=== PATIENT | female | born 1955 | race Caucasian/White ===

== ENCOUNTER 2020-03-20 11:17 | Outpatient (REF) | payer MEDICARE, SELFPAY ==
[2020-03-20 12:04] LABS: MANUAL DIFF FLAG NO
[2020-03-20 12:09] LABS: Basophils Percent Auto 0.6 % (0-2); Eosinophils Percent Auto 0.4 % (0-4); Hematocrit 37.9 % (37-47); Hemoglobin 13.4 g/dl (12.0-16.0); Imm Gran Abs Auto 0.01 X10*3/uL (0.00-0.03); Imm Gran Pct Auto 0.2 % (0.0-0.4); Lymphocytes Absolute Auto 1.4 X10*3/uL (1.2-4.9); Lymphocytes Percent Auto 25.7 % (20-40); Mean Corpuscular HGB Conc 35.4 g/dl (31.0-35.0); Mean Corpuscular Hemoglobin 37.7 pg (27.0-33.0); Mean Corpuscular Volume 106.8 fL (80-98); Mean Platelet Volume 9.6 fL (9.4-12.3); Monocytes Absolute Auto 0.4 X10*3/uL (0.1-1.2); Monocytes Percent Auto 7.8 % (2-11); Neutrophils Absolute Auto 3.5 X10*3/uL (2.0-8.3); Neutrophils Percent Auto 65.3 % (45-73); Platelet Count 250 X10*3/uL (160-400); Red Blood Count 3.55 X10*6/uL (4.20-5.50); Red Cell Distribution Width 12.9 % (11.0-16.0); White Blood Count 5.4 X10*3/uL (4.8-10.8)
[2020-03-20 12:44] LABS: Creatinine Urine 254.83 mg/dL; Microalbum/Creatinine Ratio Ur 62.3 ug/mg cr
[2020-03-20 12:47] LABS: Alanine Aminotransferase 9 U/L (0-31); Albumin Level 4.1 g/dL (3.5-5.0); Alkaline Phosphatase 72 U/L (39-117); Anion Gap 13 (12-20); Aspartate Amino Transferase 22 U/L (5-31); Bilirubin Total 0.6 mg/dL (0.0-1.0); Blood Urea Nitrogen 9 mg/dL (9-16); Calcium 9.1 mg/dL (8.4-10.2); Carbon Dioxide 28 mmol/L (22-29); Chloride 95 mmol/L (96-108); Cholesterol 213 mg/dL; Estimated Glomerular Filt Rate > 60; Glucose Fasting 124 mg/dL (60-99); HDL Cholesterol 86 mg/dL; LDL Cholesterol Calculated 110 mg/dl; Potassium 4.2 mmol/l (3.3-5.1); Sodium 132 mmol/L (135-145); Total Protein 6.8 g/dL (6.5-8.0); Triglycerides 88 mg/dL
== END 2020-03-20 11:18 | disposition home or self-care (01) ==
LOC: HO.LAB 11:17
PROVIDERS: PCP Physician Assistant; Visit Provider Physician Assistant
DX: I10 Essential (primary) hypertension (principal); Z13.220 Encounter for screening for lipoid disorders; Z13.29 Encounter for screening for other suspected endocrine disorder
CPT/HCPCS: 36415; 80053; 80061; 82043; 84443; 85025

== ENCOUNTER 2020-05-31 10:47 | Outpatient (REF) | payer MEDICARE, SELFPAY ==
--- NOTE | 2020-05-31 10:52 | MM_ITS ---
EXAMINATION: MM SCREENING DIGITAL MAMMOGRAPHY, BILATERAL CLINICAL INFORMATION: Screening. Asymptomatic. Benign left stereotactic biopsy 06/12/2018 (Benign breast tissue with stromal fibrosis, microcysts, and microcalcifications). Due for yearly. The lifetime risk of breast cancer based on the Tyrer-Cuzick Model is 6%. COMPARISON: Mammography: 12/14/2018, 06/12/2018, 04/06/2018, 03/31/2018 TECHNIQUE: Digital mammography is performed in craniocaudal and mediolateral oblique views along with computer-aided detection (CAD). FINDINGS: There are scattered areas of fibroglandular density (ACR BI-RADS breast composition Category b). Breast tissue composition borders on heterogeneously dense. There are no significant masses, abnormal calcifications, or other abnormalities. There is biopsy clip marker mid 3:00 left breast. Skin contours are smooth. No significant changes. MM/MM screening mammo BI IMPRESSION: No mammographic evidence of malignancy. ASSESSMENT: BI-RADS 1: Negative RECOMMENDATION: Routine annual mammography screening. This patient's information was entered into a reminder system with a target due date for their next mammogram.
== END 2020-05-31 10:48 | disposition home or self-care (01) ==
LOC: HO.MAMMO 10:47
PROVIDERS: PCP Physician Assistant; Visit Provider Physician Assistant
DX: Z12.31 Encounter for screening mammogram for malignant neoplasm of breast (principal)
CPT/HCPCS: 77067

== ENCOUNTER 2020-09-14 11:55 | Outpatient (REF) | payer MEDICARE, SELFPAY ==
--- NOTE | ~2020-09-14 | XR_ITS ---
EXAMINATION: XR LUMBOSACRAL SPINE CLINICAL INFORMATION: Lower back pain COMPARISON: 02/02/2013 TECHNIQUE: Three views of the lumbosacral spine. FINDINGS: No acute fracture or subluxation. Grade 1 anterolisthesis of L3 on L4 and L4 on L5. Disc space narrowing at these levels as well, greatest at L4-L5. Associated facet arthropathy of the lower lumbar spine. The sacroiliac joints are symmetric. The sacrum appears intact. The bowel gas pattern is unremarkable. XR/XR lumbar spine 2-3V IMPRESSION: Moderate degenerative change of the lower lumbar spine.
[2020-09-14 13:26] LABS: Hemoglobin 12.4 g/dl (12.0-16.0); Mean Corpuscular HGB Conc 33.5 g/dl (31.0-35.0); Mean Corpuscular Hemoglobin 35.6 pg (27.0-33.0); Mean Corpuscular Volume 106.3 fL (80-98); Mean Platelet Volume 9.7 fL (9.4-12.3); Platelet Count 248 X10*3/uL (160-400); Red Blood Count 3.48 X10*6/uL (4.20-5.50); Red Cell Distribution Width 13.5 % (11.0-16.0); White Blood Count 6.4 X10*3/uL (4.8-10.8)
[2020-09-14 13:49] LABS: Alanine Aminotransferase 8 U/L (0-31); Albumin Level 4.1 g/dL (3.5-5.0); Alkaline Phosphatase 75 U/L (39-117); Anion Gap 16 (12-20); Aspartate Amino Transferase 17 U/L (5-31); Bilirubin Total 0.2 mg/dL (0.0-1.0); Blood Urea Nitrogen 15 mg/dL (9-16); Carbon Dioxide 25 mmol/L (22-29); Chloride 101 mmol/L (96-108); Cholesterol 218 mg/dL; Estimated Glomerular Filt Rate > 60; Glucose Fasting 105 mg/dL (60-99); HDL Cholesterol 79 mg/dL; LDL Cholesterol Calculated 126 mg/dl; Sodium 138 mmol/L (135-145); Triglycerides 65 mg/dL
[2020-09-14 14:11] LABS: TSH reflex Free T4 2.71 uIU/mL (0.32-4.0)
[2020-09-14 14:12] LABS: Creatinine Urine 142.29 mg/dL; Microalbum/Creatinine Ratio Ur 11.2 ug/mg cr
== END 2020-09-14 11:56 | disposition home or self-care (01) ==
LOC: HO.XRAY 11:55
PROVIDERS: PCP Physician Assistant; Visit Provider Physician Assistant
DX: I10 Essential (primary) hypertension (principal); M54.5 Low back pain
CPT/HCPCS: 36415; 72100; 80053; 80061; 82043; 84443; 85027

== ENCOUNTER 2022-06-22 08:12 | Outpatient (REF) | payer MEDICARE, SELFPAY ==
--- NOTE | ~2022-06-22 | XR_ITS ---
EXAMINATION: XR LUMBOSACRAL SPINE CLINICAL INFORMATION: Low back pain. COMPARISON: None TECHNIQUE: Three views of the lumbosacral spine. FINDINGS: There is normal lumbar lordosis. There is grade 1 anterolisthesis L3 over L4 and L4 over L5 with degenerative disc changes. No visible acute fracture or dislocation seen. There is mild dextroscoliosis. No aggressive lytic or sclerotic process seen. XR/XR lumbar spine 2-3V IMPRESSION: Grade 1 anterolisthesis L3 over L4 and L4 over L5 with degenerative disc changes. No visible acute fracture or dislocation seen.
[2022-06-22 09:32] LABS: Hematocrit 36.2 % (37.0-47.0); Hemoglobin 12.5 g/dl (12.0-16.0); Mean Corpuscular HGB Conc 34.5 g/dl (31.0-35.0); Mean Corpuscular Hemoglobin 36.9 pg (27.0-33.0); Mean Corpuscular Volume 106.8 fL (80.0-98.0); Mean Platelet Volume 8.9 fL (9.4-12.3); Platelet Count 300 X10*3/uL (160-400); Red Blood Count 3.39 X10*6/uL (4.20-5.50); Red Cell Distribution Width 13.2 % (11.0-16.0); White Blood Count 6.2 X10*3/uL (4.8-10.8)
[2022-06-22 10:16] LABS: Alanine Aminotransferase 7 U/L (0-31); Albumin Level 3.6 g/dL (3.5-5.0); Alkaline Phosphatase 103 U/L (39-117); Anion Gap 18 (12-20); Aspartate Amino Transferase 24 U/L (5-31); Bilirubin Total 0.5 mg/dL (0.0-1.0); Blood Urea Nitrogen 12 mg/dL (9-16); Calcium 9.1 mg/dL (8.4-10.2); Carbon Dioxide 25 mmol/L (22-29); Chloride 99 mmol/L (96-108); Cholesterol 228 mg/dL; Estimated Glomerular Filt Rate > 60; Glucose Fasting 170 mg/dL (60-99); HDL Cholesterol 82 mg/dL; LDL Cholesterol Calculated 127 mg/dl; Potassium 5.1 mmol/L (3.3-5.1); Sodium 137 mmol/L (135-145); Total Protein 6.7 g/dL (6.5-8.0); Triglycerides 97 mg/dL
[2022-06-22 10:30] LABS: Creatinine Urine 186.01 mg/dL; Microalbum/Creatinine Ratio Ur 168.2 ug/mg cr
[2022-06-22 10:39] LABS: TSH reflex Free T4 2.56 uIU/mL (0.32-4.0)
== END 2022-06-22 08:13 | disposition home or self-care (01) ==
LOC: HO.LAB 08:12
PROVIDERS: Visit Provider Physician Assistant
DX: I10 Essential (primary) hypertension (principal); M54.50 Low back pain, unspecified
CPT/HCPCS: 36415; 72100; 80053; 80061; 82043; 84443; 85027

== ENCOUNTER 2022-10-21 10:29 | Emergency (ER) | payer MEDICARE, SELFPAY ==
--- NOTE | ~2022-10-21 | CT_ITS ---
EXAMINATION: CT ANGIOGRAM OF THE CHEST WITH AND WITHOUT CONTRAST (CT PULMONARY ANGIOGRAM FOR PE) CLINICAL INFORMATION: Reason for Exam SOB COMPARISON: January 2020. TECHNIQUE: Prior to contrast administration, noncontrast localization images were obtained. Subsequently, multidetector volumetric imaging was performed from the thoracic inlet to below the diaphragms following the administration of 80 mL Omnipaque 350 intravenous contrast. No contrast reaction reported Sagittal, coronal, and MIP oblique sagittal reformatted images were obtained on the CT workstation, uploaded to PACS, and reviewed. This CT examination was performed using dose optimization techniques as appropriate, variously including the following: *Automated exposure control *Adjustment of mA and/or kV according to patient size (this includes techniques or standardized protocols for targeted exams where dose is matched to indication/reason for exam; i.e. extremities or head) *Use of iterative reconstruction technique Total exam dose-length product 137 mGy-cm FINDINGS: QUALITY OF STUDY/CONTRAST BOLUS: Satisfactory. PULMONARY ARTERIES: No pulmonary emboli. THORACIC AORTA: No aneurysm. LUNG: Emphysematous changes again observed. Main airways are patent. Atelectatic change and mucous plugging of the medial right middle lobe have increased since the previous evaluation. There are multiple lung nodules, not significantly changed. The largest of these is in the posterolateral right upper lobe series 6 image 114 at 5 mm. PLEURA: No pleural effusion or pneumothorax. MEDIASTINUM: No new suspicious lymphadenopathy. No evidence of septal bowing or right heart strain. CORONARY ARTERY CALCIFICATION: None visualized on this study. CHEST WALL/AXILLA: No new suspicious axillary adenopathy. OSSEOUS STRUCTURES: Compression fracture of L1 since the previous evaluation. There is 5-6 mm of retropulsion. There is sclerosis of this vertebra. Correlation with MRI would be recommended. Slight to mild wedge deformity at T12 is new since the previous evaluation. UPPER ABDOMEN: Unremarkable. No reflux of contrast into the hepatic veins to suggest elevated right heart pressures. CT/CT angio chest PE protocol IMPRESSION: No CTA evidence for pulmonary embolus. Emphysematous changes. Multiple lung nodules, not appreciably changed. Increased atelectasis and mucous plugging in the medial right middle lobe since the previous evaluation. New compression fracture of L1 since the previous evaluation with 5 to 6 mm of retropulsion. There is also increased sclerotic change of this vertebra. Correlation with MR examination would be recommended. Slight to mild wedge deformity at T12 is new since the previous evaluation. Other incidental findings as noted above.
[2022-10-21 10:33] VITALS: BP 136/92; PULSE 128; RESP 22; TEMP 36.6; O2SAT 95; BMI 14.6
--- NOTE | 2022-10-21 10:35 | ECG_ITS ---
Test Reason : sob Blood Pressure : / mmHG Vent. Rate : 123 BPM Atrial Rate : 123 BPM P-R Int : 136 ms QRS Dur : 056 ms QT Int : 312 ms P-R-T Axes : 087 066 071 degrees QTc Int : 446 ms Sinus tachycardia Possible Left atrial enlargement Cannot rule out Anterior infarct , age undetermined Abnormal ECG When compared with ECG of 26-SEP-2009 16:12, No significant change was found Referred By: Generic ED Physician Electronically Signed By:BENITO ELLER
--- NOTE | 2022-10-21 11:00 | ED_ITS ---
HPI - General Adult General Chief complaint: General Medical <SHAHANA Langley Last Filed: 10/24/22 09:36> Stated complaint: diff breathing <SHAHANA Langley Last Filed: 10/24/22 09:36> Time Seen by Provider: 10/21/22 10:56 <SHAHANA Langley Last Filed: 10/24/22 09:36> Source: patient and RN notes reviewed <SHAHANA Langley Last Filed: 10/24/22 09:36> Mode of arrival: ambulatory <SHAHANA Langley Last Filed: 10/24/22 09:36> Limitations: no limitations <SHAHANA Langley Last Filed: 10/24/22 09:36> History of Present Illness HPI narrative: This is a cachectic 67-year-old female, with a past medical history hypertension, IBS, chronic smoker currently smoking 1 pack per day, chronic angular cheilitis, chronic GERD, who presents to the emergency department today with complaints of failure to thrive. Patient reports that over the last several months she has been progressively getting weaker and weaker which has been making activities of daily living very difficult for her. She reports that she lives on the 2nd floor and ambulating up the stairs is extremely difficult for her. She reports that when she ambulates she becomes short of breath and very weak. She reports that every time she eats she ultimately vomits. Patient reports that she has a significant smoking history, reports that she was up to smoking 3 packs per cigarettes per day; now smoking 1 pack per day. She denies any headaches. Admits to having some nasal congestion and runny nose: Denies ear pain, chest pain, palpitations. Reports that at time she feels as though as her heart is racing. Denies lower extremity swelling. Denies any urinary or bowel complaints. She reports that she has lost a significant amount of weight over the last several years reports approximately 50 lb weight loss in the last several years. No other complaints or concerns at this time. <SHAHANA Langley Last Filed: 10/24/22 09:36> MD complaint: Failure to thrive <SHAHANA Langley Last Filed: 10/24/22 09:36> Onset (ago): month(s) <SHAHANA Langley Last Filed: 10/24/22 09:36> Relieving factors: none <SHAHANA Langley Last Filed: 10/24/22 09:36> Exacerbating factors: none <SHAHANA Langley Last Filed: 10/24/22 09:36> Associated symptoms: loss of appetite and malaise <SHAHANA Langley Last Filed: 10/24/22 09:36> Treatments prior to arrival: none <SHAHANA Langley Last Filed: 10/24/22 09:36> Related Data Home medications: Home Medications Medication Instructions Recorded Confirmed acetaminophen 650 mg 650 mg PO Q12H PRN Pain 10/21/22 10/21/22 tablet,extended release (Tylenol Arthritis Pain) albuterol sulfate 90 mcg/actuation 1 puff inhalation QID PRN 10/21/22 10/21/22 aerosol inhaler Shortness Of Breath fluticasone propionate 50 1 spray intranasal BID PRN 10/21/22 10/21/22 mcg/actuation nasal Allergic Symptoms spray,suspension (Flonase Allergy Relief) multivitamin 1 tab PO DAILY 10/21/22 10/21/22 omeprazole 40 mg capsule,delayed 40 mg PO DAILY@0630 10/21/22 10/21/22 release Previous Rx's Medication Instructions Recorded montelukast 10 mg tablet 10 mg PO DAILY 90 days #90 tabs 02/19/22 blood pressure test kit-small #1 ea 03/11/22 metoprolol succinate 25 mg 25 mg PO DAILY #90 tabs 07/08/22 tablet,extended release 24 hr lisinopril 10 mg tablet 10 mg PO DAILY #90 tabs 08/06/22 back brace #1 ea 08/20/22 baclofen 5 mg tablet 5 mg PO BID 15 days #30 tabs 09/16/22 cefuroxime axetil 250 mg tablet 250 mg PO BID #4 tabs 10/24/22 <SHAHANA Langley Last Filed: 10/24/22 09:36> Allergies/adverse reactions: Allergies Allergy/AdvReac Type Severity Reaction Status Date / Time cat dander Allergy Unknown Unknown Verified 10/21/22 10:32 morphine Allergy Unknown unknown Verified 10/21/22 10:32 seasonal allergies Allergy Unknown Unknown Uncoded 10/21/22 10:32 <SHAHANA Langley - Last Filed: 10/24/22 09:36> Review of Systems Review of Systems: Constitutional: No Weight loss, No Fever, No Chills, No Night Sweats, No Fatigue, No Malaise ENT/Mouth: No Hearing loss, No Ear Pain, No Nasal Congestion, No Sinus Pain, No Hoarseness, No sore throat, No Rhinorrhea, No Swallowing Difficulty Eyes: No Eye Pain, No Swelling, No Redness, No Foreign Body, No Discharge, No Vision Changes Cardiovascular: No Chest Pain, No SOB, No Dyspnea on Exertion, No Orthopnea, No Edema, No Palpitations Respiratory: No Cough, No Sputum, No Wheezing, No Smoke Exposure, No Dyspnea Gastrointestinal: No Nausea, No Vomiting, No Diarrhea, No Constipation, No Abdominal pain, No Hematochezia, No Melena Genitourinary: No irregular bleeding, No Dysuria, No Urinary Frequency, No Hematuria, No Urinary Incontinence/retention, No Urgency, No Flank Pain, No Urinary Flow Changes, No Hesitancy Musculoskeletal: No joint pain, No Myalgias, No Joint Swelling Skin: No Skin Lesions, No rash Neuro: No Weakness, No Numbness, No Paresthesias, No Loss of Consciousness, No Dizziness, No Headache Psych: No Anxiety/Panic, No Depression, No SI/HI/AH/VH, No Social Issues, Heme/Lymph: No Bruising, No Bleeding,No Lymphadenopathy Endocrine: No Polyuria, No Polydipsia, No Temperature Intolerance <SHAHANA Langley Last Filed: 10/24/22 09:36> Yes all other systems are reviewed and are negative <SHAHANA Langley Last Filed: 10/24/22 09:36> Constitutional: Constitutional: Reports as per HPI <SHAHANA Langley Last Filed: 10/24/22 09:36> [facility] Past Medical History Surgical History: Surgical History History of cervical discectomy <SHAHANA Langley Last Filed: 10/24/22 09:36> Family History Family History: Family History Father Lung cancer Brain cancer Mother CVD (cardiovascular disease) Breast cancer Son In good health Brother In good health <SHAHANA Langley - Last Filed: 10/24/22 09:36> Social History Social History: Social History Housing: House Alcohol intake: current Alcohol intake frequency: a few times a month Patient Tobacco Use Status: Current everyday Tobacco user Cigarettes Per Day: 10 Smoked in Last 30 Days: No e-Cigarette/Vaping Use: Never Used Use of substances other than those prescribed or required for medical reasons: No Advance Directives: Yes Advance Directives on File: Yes Advance Directives Date on File: 10/21/22 service: No Current occupational status: retired Cognitive needs: No Hearing needs: No Vision needs: No <SHAHANA Langley Last Filed: 10/24/22 09:36> Physical Exam ED Vital Signs: Vital Signs - 24 hr 10/23/22 22:00 10/24/22 06:00 Temperature 98.2 F 98.1 F Pulse Rate 85 74 Respiratory Rate 16 16 Blood Pressure 148/74 H 156/98 H Pulse Oximetry 98 98 Oxygen Delivery Method Room Air Room Air BMI result Body Mass Index 14.6 <SHAHANA Langley - Last Filed: 10/24/22 09:36> Vital Signs - 24 hr 10/23/22 22:00 10/24/22 06:00 Temperature 98.2 F 98.1 F Pulse Rate 85 74 Respiratory Rate 16 16 Blood Pressure 148/74 H 156/98 H Pulse Oximetry 98 98 Oxygen Delivery Method Room Air Room Air BMI result Body Mass Index 14.6 <SHAHANA Colbert - Last Filed: 10/22/22 13:24> Const General: cooperative, comfortable and no acute distress <SHAHANA Langley Last Filed: 10/24/22 09:36> Nutritional Appearance: cachectic, malnourished and thin <SHAHANA Langley - Last Filed: 10/24/22 09:36> Orientation/consciousness: patient oriented x3 <SHAHANA Langley - Last Filed: 10/24/22 09:36> Limitations: no limitations <SHAHANA Langley Last Filed: 10/24/22 09:36> HENMT Head: Yes normal to inspection, Yes normocephalic and Yes atraumatic <Helen Murillojadon PA - Last Filed: 10/24/22 09:36> Ears: hearing grossly normal bilaterally <Helen Griffin, PA - Last Filed: 10/24/22 09:36> General nose exam: Normal external nose present <Helen Griffin, PA - Last Filed: 10/24/22 09:36> Face and sinus: Yes normal facial exam <Helen Griffin PA - Last Filed: 10/24/22 09:36> Mouth: Normal oral and palatal mucosa present, oropharynx normal and moist mucous membranes <Helen Griffin, PA - Last Filed: 10/24/22 09:36> Throat: Yes posterior oropharynx normal <Helen Griffin, PA - Last Filed: 10/24/22 09:36> Eyes General: appearance normal, both eyes and all related structures <Helen Griffin, PA - Last Filed: 10/24/22 09:36> Eyelids: Yes eyelids normal <Helen Griffin PA - Last Filed: 10/24/22 09:36> Conjunctivae: conjunctivae normal <Helen Murillojadon PA - Last Filed: 10/24/22 09:36> Sclerae: sclerae normal <Helen Murillojadon PA - Last Filed: 10/24/22 09:36> Pupils: Equal, round and reactive pupils present <Helen Griffin, PA - Last Filed: 10/24/22 09:36> EOM: EOMs intact bilaterally <Helen Griffin PA - Last Filed: 10/24/22 09:36> Neck Neck: Yes normal visual inspection, Yes full ROM and Yes no lymphadenopathy <Helen Griffin PA - Last Filed: 10/24/22 09:36> Lymphatic: no lymphadenopathy noted <Helen Griffin PA - Last Filed: 10/24/22 09:36> Chest Other: Coarse lung sounds in the bilateral lung bases, expiratory wheeze in the right upper base. <Helen Griffin PA - Last Filed: 10/24/22 09:36> Chest palpation & inspection: normal inspection of the chest <Helen Griffin PA - Last Filed: 10/24/22 09:36> Resp Effort & Inspection: normal respiratory effort and able to speak in complete sentences <Helen Murillojadon [facility] Last Filed: 10/24/22 09:36> Cardio Rate: regular rate <Helen Griffin [facility] Last Filed: 10/24/22 09:36> Rhythm: regular rhythm <Helen Griffin [facility] Last Filed: 10/24/22 09:36> Heart sounds: S1 normal heart sound present and S2 normal heart sound present <Helen Murillojadon [facility] Last Filed: 10/24/22 09:36> GI Inspection: Yes normal to inspection <Helen Griffin [facility] Last Filed: 10/24/22 09:36> Skin General skin exam: no rashes or lesions noted <Helen Murillojadon [facility] Last Filed: 10/24/22 09:36> Trauma: no lacerations or abrasions <Helen Murillojadon [facility] Last Filed: 10/24/22 09:36> Wounds: no wounds <Helen Murillojadon [facility] Last Filed: 10/24/22 09:36> Neuro General: patient oriented x3 and moves all extremities <Helen Murillojadon [facility] Last Filed: 10/24/22 09:36> Cranial nerves: Yes Equal, round and reactive pupils present <Helen Murillojadon [facility] Last Filed: 10/24/22 09:36> Extrem General: Yes normal to inspection <Helen Murillojadon [facility] Last Filed: 10/24/22 09:36> Right upper extremity: normal to inspection <Helen Murillojadon [facility] Last Filed: 10/24/22 09:36> Left upper extremity: normal to inspection <Helen Murillojadon [facility] Last Filed: 10/24/22 09:36> Right lower extremity: normal to inspection <Helen Murillojadon [facility] Last Filed: 10/24/22 09:36> Left lower extremity: normal to inspection <Helen Murillojadon [facility] Last Filed: 10/24/22 09:36> Course Reevaluation(s) Reevaluation #1: Patient re-evaluated, feeling slightly better after magnesium replenishment and 1 L of IV fluids, still feeling very weak and is unsure if she will be able to ambulate now that she has been in ER stretcher for several hours. CTA shows no evidence for PE. There emphysematous changes with multiple lung nodules not appreciably changed. Increased atelectasis and mucus plugging in the medial right middle lobe since the previous evaluation. There is a new compression fracture of L1 since the previous evaluation with 5-6 mm of retropulsion. Slight mild wedge deformity at T12. Discussion of alcohol use wi th patient. She reports that she drinks 2 glasses of wine 5 to 6 times a week. She does admit to having some hard liquor during the week as well. She has never been an alcohol withdrawal before. Negative alcohol level. CIWA: 1. Urinalysis shows evidence of urinary tract infection will start patient on cefuroxime. Patient aware of all these findings. Pt's tachycardia improved to 90bpms. Still feeling weak, would like PT case management to see pt. <SHAHANA Langley - Last Filed: 10/24/22 09:36> Time: 15:53 <SHAHANA Langley - Last Filed: 10/24/22 09:36> Reevaluation #2: Physical therapy has already left for the evening will keep patient overnight for PT evaluation in the morning. Case Management aware of patient's situation. May see the patient tonight. physician observation initiated. <SHAHANA Langley - Last Filed: 10/24/22 09:36> Time: 16:49 <SHAHANA Langley - Last Filed: 10/24/22 09:36> Reevaluation #3: 72610/22/2022: Physician observation continues. Patient to be evaluated by PT today. Patient being followed by Case Management. 132210/22/2022: Patient to be going to [facility] when insurance approves. Rehab expected to be less than 30 days. 34 10/24/2022: Physician observation continued. Vital signs stable, no overnight events per nursing staff. [facility] in process of trying to obtain insurance authorization. Will continue to monitor. 36 10/24/2022: [facility] accepted patient, Dr. Patton, will be discharged around 11:00AM. <SHAHANA Langley - Last Filed: 10/24/22 09:36> 72610/22/2022: Physician observation continues. Patient to be evaluated by PT today. Patient being followed by Case Management. 1323 10/22/2022: Patient to be going to [facility] [place] when insurance approves. Rehab expected to be less than 30 days. <SHAHANA Colbert - Last Filed: 10/22/22 13:24> Medications Administered Generic Name Dose Route Start Last Admin Trade Name Nisha PRN Reason Stop Dose Admin Acetaminophen 650 mg 10/22/22 08:17 10/24/22 06:10 Acetaminophen 325 Mg Tablet PO 650 mg Q12H PRN Administration Pain Baclofen 5 mg 10/22/22 09:00 10/24/22 08:03 Baclofen 10 Mg Tablet PO 5 mg BID JODI Administration Cefuroxime Axetil 250 mg 10/21/22 21:00 10/24/22 08:03 Cefuroxime Axetil 250 Mg Tablet PO 250 mg BID JODI Administration Fluticasone Propionate 1 spray 10/22/22 08:12 10/24/22 08:06 Fluticasone Propionate Nasal 16 Gm [place] NOSTRIL-B 1 spray BID PRN Administration Allergic Symptoms Lisinopril 10 mg 10/22/22 09:00 10/24/22 08:03 Lisinopril 10 Mg Tablet PO 10 mg DAILY JODI Administration Protocol Metoprolol Succinate 25 mg 10/22/22 09:00 10/24/22 08:03 Metoprolol Succinate Er 25 Mg Tab.Er.24h PO 25 mg DAILY JODI Administration Protocol Montelukast Sodium 10 mg 10/22/22 09:00 10/24/22 08:03 Montelukast Sodium 10 Mg Tablet PO 10 mg DAILY JODI Administration Multivitamins/Vitamin C 1 tab 10/22/22 09:00 10/24/22 08:02 Multivitamin Tablet PO 1 tab DAILY JODI Administration Omeprazole 40 mg 10/23/22 06:30 10/24/22 06:08 Omeprazole 40 Mg Capsule.Dr PO 40 mg DAILY@0630 JODI Administration Discontinued Medications Generic Name Dose Route Start Last Admin Trade Name Freq PRN Reason Stop Dose Admin Acetaminophen 975 mg 10/21/22 15:59 10/21/22 16:52 Acetaminophen 325 Mg Tablet PO 10/21/22 16:00 975 mg ONCE ONE Administration Guaifenesin 600 mg 10/21/22 16:29 10/21/22 16:52 Guaifenesin [place] 600 Mg Tab.Er.12h PO 10/21/22 16:30 600 mg ONCE ONE Administration Sodium Chloride 1,000 mls @ 999 mls/hr 10/21/22 11:23 10/21/22 12:55 Ns IVCONT 10/21/22 12:23 Infused .Q1H1M ONE Infusion Magnesium Sulfate 2 gm in 50 mls @ 150 mls/hr 10/21/22 11:49 10/21/22 12:21 Magnesium Sulfate/H2o IV 10/21/22 12:08 Infused ONCE ONE Infusion Sodium Chloride 1,000 mls @ 999 mls/hr 10/21/22 16:31 10/21/22 17:45 Ns IVCONT 10/21/22 17:31 Infused .Q1H1M ONE Infusion Iohexol 100 ml 10/21/22 12:45 10/21/22 12:47 Iohexol 350 Mg/Ml 100 Ml Infus..Btl IV 10/21/22 12:46 65 ml ONCE ONE Administration Melatonin 3 mg 10/21/22 20:01 10/21/22 20:10 Melatonin 3 Mg Tablet PO 10/21/22 20:02 3 mg ONCE ONE Administration <SHAHANA Langley - Last Filed: 10/24/22 09:36> Medications Administered Generic Name Dose Route Start Last Admin Trade Name Freq PRN Reason Stop Dose Admin Acetaminophen 650 mg 10/22/22 08:17 10/24/22 06:10 Acetaminophen 325 Mg Tablet PO 650 mg Q12H PRN Administration Pain Baclofen 5 mg 10/22/22 09:00 10/24/22 08:03 Baclofen 10 Mg Tablet PO 5 mg BID JODI Administration Cefuroxime Axetil 250 mg 10/21/22 21:00 10/24/22 08:03 Cefuroxime Axetil 250 Mg Tablet PO 250 mg BID JODI Administration Fluticasone Propionate 1 spray 10/22/22 08:12 10/24/22 08:06 Fluticasone Propionate Nasal 16 Gm [place] NOSTRIL-B 1 spray BID PRN Administration Allergic Symptoms Lisinopril 10 mg 10/22/22 09:00 10/24/22 08:03 Lisinopril 10 Mg Tablet PO 10 mg DAILY JODI Administration Protocol Metoprolol Succinate 25 mg 10/22/22 09:00 10/24/22 08:03 Metoprolol Succinate Er 25 Mg Tab.Er.24h PO 25 mg DAILY JODI Administration Protocol Montelukast Sodium 10 mg 10/22/22 09:00 10/24/22 08:03 Montelukast Sodium 10 Mg Tablet PO 10 mg DAILY JODI Administration Multivitamins/Vitamin C 1 tab 10/22/22 09:00 10/24/22 08:02 Multivitamin Tablet PO 1 tab DAILY JODI Administration Omeprazole 40 mg 10/23/22 06:30 10/24/22 06:08 Omeprazole 40 Mg Capsule. PO 40 mg DAILY@0630 JODI Administration Discontinued Medications Generic Name Dose Route Start Last Admin Trade Name Nisha PRN Reason Stop Dose Admin Acetaminophen 975 mg 10/21/22 15:59 10/21/22 16:52 Acetaminophen 325 Mg Tablet PO 10/21/22 16:00 975 mg ONCE ONE Administration Guaifenesin 600 mg 10/21/22 16:29 10/21/22 16:52 Guaifenesin [place] 600 Mg Tab.Er.12h PO 10/21/22 16:30 600 mg ONCE ONE Administration Sodium Chloride 1,000 mls @ 999 mls/hr 10/21/22 11:23 10/21/22 12:55 Ns IVCONT 10/21/22 12:23 Infused .Q1H1M ONE Infusion Magnesium Sulfate 2 gm in 50 mls @ 150 mls/hr 10/21/22 11:49 10/21/22 12:21 Magnesium Sulfate/H2o IV 10/21/22 12:08 Infused ONCE ONE Infusion Sodium Chloride 1,000 mls @ 999 mls/hr 10/21/22 16:31 10/21/22 17:45 Ns IVCONT 10/21/22 17:31 Infused .Q1H1M ONE Infusion Iohexol 100 ml 10/21/22 12:45 10/21/22 12:47 Iohexol 350 Mg/Ml 100 Ml Infus..Btl IV 10/21/22 12:46 65 ml ONCE ONE Administration Melatonin 3 mg 10/21/22 20:01 10/21/22 20:10 Melatonin 3 Mg Tablet PO 10/21/22 20:02 3 mg ONCE ONE Administration <SHAHANA Colbert - Last Filed: 10/22/22 13:24> Medical Decision Making Medical Decision Making MDM Narrative: cachectic 67-year-old female, with a past medical history hypertension, IBS, chronic smoker currently smoking 1 pack per day, chronic angular cheilitis, chronic GERD, who presents to the emergency department today with complaints of failure to thrive. Patient reports that over the last several months she has had difficulty with activities of daily living secondary to weakness. She reports that she has had a decreased appetite for several months and often times vomits every time she eats. She has a history of a lung nodule but reports she was not following up with this as she was hoping that I would just go away. Pt tachycardic at 110-120s on arrival, respirations 22 rpm, o2 saturation 95% on room air. Plan: CTA chest, EKG, 1L IV fluids, UA, labs <SHAHANA Langley - Last Filed: 10/24/22 09:36> Differential Diagnosis Differential Diagnoses: The differential diagnosis associated with the presentation includes <SHAHANA Langley Last Filed: 10/24/22 09:36> Failure to thrive, dehydration, electrolyte abnormality, UTI <SHAHANA Langley Last Filed: 10/24/22 09:36> Admission/Observation Consideration of admission/observation: Escalation of care including admission/observation considered <SHAHANA Langley Last Filed: 10/24/22 09:36> Lab Data MDM Lab Attestation statement: I reviewed the patient's lab results. <SHAHANA Langley - Last Filed: 10/24/22 09:36> Result Diagrams: 10/21/22 11:20 10/21/22 11:20 <SHAHANA Langley - Last Filed: 10/24/22 09:36> Labs: Lab Results 10/21/22 10/21/22 10/21/22 Range/Units 11:20 11:20 11:20 WBC 7.0 (4.8-10.8) X10*3/uL RBC 3.37 L (4.20-5.50) X10*6/uL Hgb 12.6 (12.0-16.0) g/dl Hct 34.6 L (37.0-47.0) % MCV 102.7 H (80.0-98.0) fL MCH 37.4 H (27.0-33.0) pg MCHC 36.4 H (31.0-35.0) g/dl RDW 12.9 (11.0-16.0) % Plt Count 163 D (160-400) X10*3/uL MPV 9.7 (9.4-12.3) fL Immature Gran % (Auto) 0.4 (0.0-0.4) % Neut % (Auto) 83.4 H (45-73) % Lymph % (Auto) 10.0 L (20-40) % [place] % (Auto) 5.5 (2-11) % Eos % (Auto) 0.1 (0-4) % Baso % (Auto) 0.6 (0-2) % Lymph # (Auto) 0.7 L (1.2-4.9) X10*3/uL [place] # (Auto) 0.4 (0.1-1.2) X10*3/uL Eos # (Auto) 0.0 (0.0-0.4) X10*3/uL Baso # (Auto) 0.0 (0.0-0.2) X10*3/uL Abs Immat Gran (auto) 0.03 (0.00-0.03) X10*3/uL Absolute Neuts (auto) 5.8 (2.0-8.3) x10*3/uL Absolute Nucleated RBC 0.000 (0.0-0.012) X10*3/uL Nucleated RBC % (auto) 0.0 (0.0-0.2) /100WBC Sodium 131 L (135-145) mmol/L Potassium 3.8 D (3.3-5.1) mmol/L Chloride 90 L (96-108) mmol/L Carbon Dioxide 29 (22-29) mmol/L Anion Gap 16 (12-20) BUN 8 L (9-16) mg/dL Creatinine 0.80 (0.5-1.4) mg/dL Estim Creat Clear Calc 41.5 Estimated GFR > 60 Random Glucose 166 H (60-115) mg/dL Calcium 9.0 (8.4-10.2) mg/dL Magnesium 1.2 L* (1.6-2.6) mg/dL Total Bilirubin 0.9 (0.0-1.0) mg/dL AST 44 H (5-31) U/L ALT 13 (0-31) U/L Alkaline Phosphatase 116 (39-117) U/L Troponin I High Sens 4.5 (<3.5-17.0) ng/L B-Natriuretic Peptide (<100) pg/mL Total Protein 6.7 (6.5-8.0) g/dL Albumin 3.7 (3.5-5.0) g/dL Urine Color Urine Appearance Urine pH (5.0-9.0) Ur Specific [place] (1.005-1.025) Urine Protein (Neg-Trace) mg/dL Urine Glucose (UA) (Negative) mg/dL Urine Ketones (Negative) mg/dL Urine Blood (Negative) Urine Nitrite (Negative) Ur Leukocyte Esterase (Negative) Urine RBC (0-2) /HPF Urine WBC (0-5) /HPF Ur Squamous Epith Cells (0-2) /HPF Urine Bacteria (None Seen) Hyaline Casts (0-2) /LPF Ethyl Alcohol < 10 mg/dL COVID-19 (VIC) (Negative) COVID-19 Clin Com 10/21/22 10/21/22 10/21/22 Range/Units 11:20 11:20 13:34 WBC (4.8-10.8) X10*3/uL RBC (4.20-5.50) X10*6/uL Hgb (12.0-16.0) g/dl Hct (37.0-47.0) % MCV (80.0-98.0) fL MCH (27.0-33.0) pg MCHC (31.0-35.0) g/dl RDW (11.0-16.0) % Plt Count (160-400) X10*3/uL MPV (9.4-12.3) fL Immature Gran % (Auto) (0.0-0.4) % Neut % (Auto) (45-73) % Lymph % (Auto) (20-40) % [place] % (Auto) (2-11) % Eos % (Auto) (0-4) % Baso % (Auto) (0-2) % Lymph # (Auto) (1.2-4.9) X10*3/uL [place] # (Auto) (0.1-1.2) X10*3/uL Eos # (Auto) (0.0-0.4) X10*3/uL Baso # (Auto) (0.0-0.2) X10*3/uL Abs Immat Gran (auto) (0.00-0.03) X10*3/uL Absolute Neuts (auto) (2.0-8.3) x10*3/uL Absolute Nucleated RBC (0.0-0.012) X10*3/uL Nucleated RBC % (auto) (0.0-0.2) /100WBC Sodium (135-145) mmol/L Potassium (3.3-5.1) mmol/L Chloride (96-108) mmol/L Carbon Dioxide (22-29) mmol/L Anion Gap (12-20) BUN (9-16) mg/dL Creatinine (0.5-1.4) mg/dL Estim Creat Clear Calc Estimated GFR Random Glucose (60-115) mg/dL Calcium (8.4-10.2) mg/dL Magnesium (1.6-2.6) mg/dL Total Bilirubin (0.0-1.0) mg/dL AST (5-31) U/L ALT (0-31) U/L Alkaline Phosphatase (39-117) U/L Troponin I High Sens (<3.5-17.0) ng/L B-Natriuretic Peptide 147 H (<100) pg/mL Total Protein (6.5-8.0) g/dL Albumin (3.5-5.0) g/dL Urine Color Yellow Urine Appearance Clear Urine pH 6.5 (5.0-9.0) Ur Specific [place] 1.025 (1.005-1.025) Urine Protein Negative (Neg-Trace) mg/dL Urine Glucose (UA) Negative (Negative) mg/dL Urine Ketones Negative (Negative) mg/dL Urine Blood Small (1+) H (Negative) Urine Nitrite Positive H (Negative) Ur Leukocyte Esterase Small (1+) H (Negative) Urine RBC 0-2 (0-2) /HPF Urine WBC 0-5 (0-5) /HPF Ur Squamous Epith Cells 0-2 (0-2) /HPF Urine Bacteria 4+ (None Seen) Hyaline Casts 0-2 (0-2) /LPF Ethyl Alcohol mg/dL COVID-19 (VIC) Negative (Negative) COVID-19 Clin Com See Note <SHAHANA Langley - Last Filed: 10/24/22 09:36> Lab Results 10/21/22 10/21/22 10/21/22 Range/Units 11:20 11:20 11:20 WBC 7.0 (4.8-10.8) X10*3/uL RBC 3.37 L (4.20-5.50) X10*6/uL Hgb 12.6 (12.0-16.0) g/dl Hct 34.6 L (37.0-47.0) % MCV 102.7 H (80.0-98.0) fL MCH 37.4 H (27.0-33.0) pg MCHC 36.4 H (31.0-35.0) g/dl RDW 12.9 (11.0-16.0) % Plt Count 163 D (160-400) X10*3/uL MPV 9.7 (9.4-12.3) fL Immature Gran % (Auto) 0.4 (0.0-0.4) % Neut % (Auto) 83.4 H (45-73) % Lymph % (Auto) 10.0 L (20-40) % [place] % (Auto) 5.5 (2-11) % Eos % (Auto) 0.1 (0-4) % Baso % (Auto) 0.6 (0-2) % Lymph # (Auto) 0.7 L (1.2-4.9) X10*3/uL [place] # (Auto) 0.4 (0.1-1.2) X10*3/uL Eos # (Auto) 0.0 (0.0-0.4) X10*3/uL Baso # (Auto) 0.0 (0.0-0.2) X10*3/uL Abs Immat Gran (auto) 0.03 (0.00-0.03) X10*3/uL Absolute Neuts (auto) 5.8 (2.0-8.3) x10*3/uL Absolute Nucleated RBC 0.000 (0.0-0.012) X10*3/uL Nucleated RBC % (auto) 0.0 (0.0-0.2) /100WBC Sodium 131 L (135-145) mmol/L Potassium 3.8 D (3.3-5.1) mmol/L Chloride 90 L (96-108) mmol/L Carbon Dioxide 29 (22-29) mmol/L Anion Gap 16 (12-20) BUN 8 L (9-16) mg/dL Creatinine 0.80 (0.5-1.4) mg/dL Estim Creat Clear Calc 41.5 Estimated GFR > 60 Random Glucose 166 H (60-115) mg/dL Calcium 9.0 (8.4-10.2) mg/dL Magnesium 1.2 L* (1.6-2.6) mg/dL Total Bilirubin 0.9 (0.0-1.0) mg/dL AST 44 H (5-31) U/L ALT 13 (0-31) U/L Alkaline Phosphatase 116 (39-117) U/L Troponin I High Sens 4.5 (<3.5-17.0) ng/L B-Natriuretic Peptide (<100) pg/mL Total Protein 6.7 (6.5-8.0) g/dL Albumin 3.7 (3.5-5.0) g/dL Urine Color Urine Appearance Urine pH (5.0-9.0) Ur Specific [place] (1.005-1.025) Urine Protein (Neg-Trace) mg/dL Urine Glucose (UA) (Negative) mg/dL Urine Ketones (Negative) mg/dL Urine Blood (Negative) Urine Nitrite (Negative) Ur Leukocyte Esterase (Negative) Urine RBC (0-2) /HPF Urine WBC (0-5) /HPF Ur Squamous Epith Cells (0-2) /HPF Urine Bacteria (None Seen) Hyaline Casts (0-2) /LPF Ethyl Alcohol < 10 mg/dL COVID-19 (VIC) (Negative) COVID-19 Clin Com 10/21/22 10/21/22 10/21/22 Range/Units 11:20 11:20 13:34 WBC (4.8-10.8) X10*3/uL RBC (4.20-5.50) X10*6/uL Hgb (12.0-16.0) g/dl Hct (37.0-47.0) % MCV (80.0-98.0) fL MCH (27.0-33.0) pg MCHC (31.0-35.0) g/dl RDW (11.0-16.0) % Plt Count (160-400) X10*3/uL MPV (9.4-12.3) fL Immature Gran % (Auto) (0.0-0.4) % Neut % (Auto) (45-73) % Lymph % (Auto) (20-40) % [place] % (Auto) (2-11) % Eos % (Auto) (0-4) % Baso % (Auto) (0-2) % Lymph # (Auto) (1.2-4.9) X10*3/uL [place] # (Auto) (0.1-1.2) X10*3/uL Eos # (Auto) (0.0-0.4) X10*3/uL Baso # (Auto) (0.0-0.2) X10*3/uL Abs Immat Gran (auto) (0.00-0.03) X10*3/uL Absolute Neuts (auto) (2.0-8.3) x10*3/uL Absolute Nucleated RBC (0.0-0.012) X10*3/uL Nucleated RBC % (auto) (0.0-0.2) /100WBC Sodium (135-145) mmol/L Potassium (3.3-5.1) mmol/L Chloride (96-108) mmol/L Carbon Dioxide (22-29) mmol/L Anion Gap (12-20) BUN (9-16) mg/dL Creatinine (0.5-1.4) mg/dL Estim Creat Clear Calc Estimated GFR Random Glucose (60-115) mg/dL Calcium (8.4-10.2) mg/dL Magnesium (1.6-2.6) mg/dL Total Bilirubin (0.0-1.0) mg/dL AST (5-31) U/L ALT (0-31) U/L Alkaline Phosphatase (39-117) U/L Troponin I High Sens (<3.5-17.0) ng/L B-Natriuretic Peptide 147 H (<100) pg/mL Total Protein (6.5-8.0) g/dL Albumin (3.5-5.0) g/dL Urine Color Yellow Urine Appearance Clear Urine pH 6.5 (5.0-9.0) Ur Specific [place] 1.025 (1.005-1.025) Urine Protein Negative (Neg-Trace) mg/dL Urine Glucose (UA) Negative (Negative) mg/dL Urine Ketones Negative (Negative) mg/dL Urine Blood Small (1+) H (Negative) Urine Nitrite Positive H (Negative) Ur Leukocyte Esterase Small (1+) H (Negative) Urine RBC 0-2 (0-2) /HPF Urine WBC 0-5 (0-5) /HPF Ur Squamous Epith Cells 0-2 (0-2) /HPF Urine Bacteria 4+ (None Seen) Hyaline Casts 0-2 (0-2) /LPF Ethyl Alcohol mg/dL COVID-19 (VIC) Negative (Negative) COVID-19 Clin Com See Note <SHAHANA Colbert - Last Filed: 10/22/22 13:24> Radiology Impression Discussion of test interpretation with radiology: I have reviewed the radiologist's reading. <SHAHANA Langley - Last Filed: 10/24/22 09:36> Radiologist Impression: EXAMINATION: CT ANGIOGRAM OF THE CHEST WITH AND WITHOUT CONTRAST (CT PULMONARY ANGIOGRAM FOR PE) CLINICAL INFORMATION: Reason for Exam SOB COMPARISON: January 2020.? ? TECHNIQUE: Prior to contrast administration, noncontrast localization images were obtained. ? Subsequently, multidetector volumetric imaging was performed from the thoracic inlet to below the diaphragms following the administration of 80 mL Omnipaque 350 intravenous contrast. No contrast reaction reported Sagittal, coronal, and MIP oblique sagittal reformatted images were obtained on the CT workstation, uploaded to PACS, and reviewed. This CT examination was performed using dose optimization techniques as appropriate, variously including the following: *Automated exposure control *Adjustment of mA and/or kV according to patient size (this includes techniques or standardized protocols for targeted exams where dose is matched to indication/reason for exam; i.e. extremities or head) *Use of iterative reconstruction technique Total exam dose-length product 137 mGy-cm FINDINGS: QUALITY OF STUDY/CONTRAST BOLUS: Satisfactory. PULMONARY ARTERIES: No pulmonary emboli.? THORACIC AORTA: No aneurysm. LUNG: Emphysematous changes again observed. Main airways are patent. Atelectatic change and mucous plugging of the medial right middle lobe have increased since the previous evaluation. There are multiple lung nodules, not significantly changed. The largest of these is in the posterolateral right upper lobe series 6 image 114 at 5 mm. PLEURA: No pleural effusion or pneumothorax. MEDIASTINUM: No new suspicious lymphadenopathy.? No evidence of septal bowing or right heart strain. CORONARY ARTERY CALCIFICATION: None visualized on this study. CHEST WALL/AXILLA: No new suspicious axillary adenopathy. OSSEOUS STRUCTURES: Compression fracture of L1 since the previous evaluation. There is 5-6 mm of retropulsion. There is sclerosis of this vertebra. Correlation with MRI would be recommended. Slight to mild wedge deformity at T12 is new since the previous evaluation. UPPER ABDOMEN: Unremarkable.? No reflux of contrast into the hepatic veins to suggest elevated right heart pressures. CT/CT angio chest PE protocol IMPRESSION: No CTA evidence for pulmonary embolus. ? Emphysematous changes. Multiple lung nodules, not appreciably changed. ? Increased atelectasis and mucous plugging in the medial right middle lobe since the previous evaluation. ? New compression fracture of L1 since the previous evaluation with 5 to 6 mm of retropulsion. There is also increased sclerotic change of this vertebra. Correlation with MR examination would be recommended. Slight to mild wedge deformity at T12 is new since the previous evaluation. ? Other incidental findings as noted above. Dictated By: Bimal Morales. Rate : 123 BPM ? ? Atrial Rate : 123 BPM ?? P-R Int : 136 ms? QRS Dur : 056 ms ? ? QT Int : 312 ms ? ? ? P-R-T Axes : 087 066 071 degrees ?? QTc Int : 446 ms ? Sinus tachycardia Possible Left atrial enlargement Cannot rule out Anterior infarct , age undetermined Abnormal ECG When compared with ECG of 26-SEP-2009 16:12, No significant change was found ? Referred By: Generic ED Physician ? Electronically Signed By:REFUGIO ARGUELLES Dictated By: Refugio Arguelles MD <SHAHANA Langley - Last Filed: 10/24/22 09:36> External Record Review External record reviewed: Inpatient record, Office record, Outpatient record, Prior outpatient labs, Prior outpatient radiology, Primary care record and Outside ED record <SHAHANA Langley - Last Filed: 10/24/22 09:36> Discharge Plan Discharge Clinical Impression: Weakness, Compression fracture of lumbar vertebra, Acute UTI <SHAHANA Langley - Last Filed: 10/24/22 09:36> Patient Disposition: Xfer Inpatient Rehab Fac <SHAHANA Langley Last Filed: 10/24/22 09:36> Transfer Details: [facility] <SHAHANA Langley Last Filed: 10/24/22 09:36> [facility] <SHAHANA Colbert - Last Filed: 10/22/22 13:24> Instructions: Urinary Tract Infection in Women (ED), Acute Low Back Pain (ED), Weakness (ED) <SHAHANA Langley - Last Filed: 10/24/22 09:36> Additional Instructions: Please continue all at-home medications. Continue taking antibiotic as prescribed for urinary tract infection. You already received 1 dose of cefuroxime today. Please take 2nd dose this evening (10/24/2022) Stay well hydrated and get plenty of rest. If any new or worsening symptoms occur including but not limited to chest pain, palpitations, shortness of breath, increased weakness, fevers, chills, please return for re-evaluation. Follow-up with your primary care physician. <SHAHANA Langley - Last Filed: 10/24/22 09:36> Prescriptions: New cefuroxime axetil 250 mg tablet 250 mg PO BID Qty: 4 0RF No Action montelukast 10 mg tablet 10 mg PO DAILY 90 Days Qty: 90 3RF metoprolol succinate 25 mg tablet extended release 24 hr 25 mg PO DAILY Qty: 90 2RF lisinopril 10 mg tablet 10 mg PO DAILY Qty: 90 2RF (DME) back brace Misc See Rx Instructions .Route Qty: 1 0RF Rx Instructions: As directed baclofen 5 mg tablet 5 mg PO BID 15 Days Qty: 30 1RF omeprazole 40 mg capsule,delayed release(DR/EC) 40 mg PO DAILY@0630 acetaminophen [Tylenol Arthritis Pain] 650 mg tablet extended release 650 mg PO Q12H PRN (Reason: Pain) albuterol sulfate 90 mcg/actuation HFA aerosol inhaler 1 puff inhalation QID PRN (Reason: Shortness Of Breath) fluticasone propionate [Flonase Allergy Relief] 50 mcg/actuation spray,suspension 1 spray intranasal BID PRN (Reason: Allergic Symptoms) Rx Instructions: administer into each nostril multivitamin Tablet 1 tab PO DAILY (DME) blood pressure test kit-small Kit See Rx Instructions .Route Qty: 1 0RF Rx Instructions: As directed <SHAHANA Langley - Last Filed: 10/24/22 09:36> Referrals: [facility] [Outside] <SHAHANA Langley - Last Filed: 10/24/22 09:36>
[2022-10-21 11:27] LABS: MANUAL DIFF FLAG NO
[2022-10-21 11:29] LABS: Basophils Percent Auto 0.6 % (0-2); Eosinophils Percent Auto 0.1 % (0-4); Hematocrit 34.6 % (37.0-47.0); Hemoglobin 12.6 g/dl (12.0-16.0); Imm Gran Abs Auto 0.03 X10*3/uL (0.00-0.03); Imm Gran Pct Auto 0.4 % (0.0-0.4); Lymphocytes Absolute Auto 0.7 X10*3/uL (1.2-4.9); Mean Corpuscular HGB Conc 36.4 g/dl (31.0-35.0); Mean Corpuscular Hemoglobin 37.4 pg (27.0-33.0); Mean Corpuscular Volume 102.7 fL (80.0-98.0); Mean Platelet Volume 9.7 fL (9.4-12.3); Monocytes Absolute Auto 0.4 X10*3/uL (0.1-1.2); Monocytes Percent Auto 5.5 % (2-11); Neutrophils Absolute Auto 5.8 x10*3/uL (2.0-8.3); Neutrophils Percent Auto 83.4 % (45-73); Platelet Count 163 X10*3/uL (160-400); Red Blood Count 3.37 X10*6/uL (4.20-5.50); Red Cell Distribution Width 12.9 % (11.0-16.0)
[2022-10-21] MEDS: 0.9 % Sodium Chloride 1,000 ML 999 ML IVCONT ×2 (11:40→16:44)
[2022-10-21 11:48] LABS: COVID-19 Test Negative (Negative); IDNOW Serial# 55D5AD1C
[2022-10-21 11:50] LABS: Alanine Aminotransferase 13 U/L (0-31); Albumin Level 3.7 g/dL (3.5-5.0); Alkaline Phosphatase 116 U/L (39-117); Anion Gap 16 (12-20); Aspartate Amino Transferase 44 U/L (5-31); Bilirubin Total 0.9 mg/dL (0.0-1.0); Blood Urea Nitrogen 8 mg/dL (9-16); Carbon Dioxide 29 mmol/L (22-29); Chloride 90 mmol/L (96-108); Creatinine Clr Calc Pharmacy 41.5; Estimated Glomerular Filt Rate > 60; Glucose Random 166 mg/dL (60-115); Magnesium 1.2 mg/dL (1.6-2.6); Potassium 3.8 mmol/L (3.3-5.1); Sodium 131 mmol/L (135-145); Total Protein 6.7 g/dL (6.5-8.0)
[2022-10-21 11:51] LABS: Troponin-I High Sensitivity 4.5 ng/L (<3.5-17.0)
[2022-10-21] MEDS: Magnesium Sulfate/H2O 2 GM/50 ML PIGGYBACK IV (12:01)
[2022-10-21 12:05] LABS: B Type Natriuretic Peptide 147 pg/mL (<100)
--- NOTE | 2022-10-21 12:38 | PC.NURSE ---
bedside tele double counting d/t peaked t waves
[2022-10-21] MEDS: iohexoL 350 MG/ML 100 ML INFUS..BTL IV (12:47)
[2022-10-21 13:50] LABS: Appearance Urine Clear; Color Urine Yellow; Glucose Urine UA Negative (Negative); Leukocyte Esterase Urine Small (1+) (Negative); Nitrite Urine Positive (Negative); PH 6.5 (5.0-9.0); Specific Gravity - Urine 1.025 (1.005-1.025); UMIC TRIGGER UACC YES; Urine Blood Small (1+) (Negative); Urine Ketones Negative (Negative); Urine Protein Negative (Neg-Trace)
[2022-10-21 14:04] LABS: Bacteria Urine 4+ (None Seen); Hyaline Casts Urine 0-2 /LPF (0-2); RBC Urine 0-2 /HPF (0-2); Squamous Epithelial Cell Urine 0-2 /HPF (0-2); UACC Culture Trigger YES; WBC Urine 0-5 /HPF (0-5)
[2022-10-21 15:07] VITALS: BP 138/84; PULSE 93; RESP 15; O2SAT 100
[2022-10-21 15:08] LABS: Ethanol < 10 mg/dL
[2022-10-21] MEDS: Acetaminophen 325 MG TABLET 975 MG PO (16:52)
[2022-10-21] MEDS: guaiFENesin LA 600 MG TAB.ER.12H PO (16:52)
[2022-10-21 17:05] VITALS: BP 135/89; PULSE 86; RESP 12; TEMP 36.7; O2SAT 95
--- NOTE | 2022-10-21 18:05 | PHA.MEDREC ---
Pharmacy Consult ? Medication Reconciliation Pharmacy has completed the medication reconciliation.
[2022-10-21 18:59] VITALS: BP 114/72; PULSE 86; RESP 16; TEMP 36.8; O2SAT 95
--- NOTE | 2022-10-21 19:27 | PC.NURSE ---
I assumed care of the pt at 1900. Pt is resting quietly in bed, reporting pain in her lower back, which is chronic, and a headache. Pt reported that tylenol worked for the headache. Pt is A&Ox4, GCS 15, with cool, dry skin. Pt was given water and was assisted to the bathroom. Pt had a steady gait with one assist. Pt states she still feels weak.
[2022-10-21 20:00] VITALS: BP 119/66; PULSE 88; RESP 17; TEMP 37.3; O2SAT 97
[2022-10-21] MEDS: Melatonin 3 MG TABLET PO (20:10)
--- NOTE | 2022-10-21 20:15 | PC.NURSE ---
Called report to Amanda in overflow. Pt will be going to bed 8. Pt being transported in a wheelchair by Ky Garcia
--- NOTE | 2022-10-21 20:34 | MHC.CM.ED ---
CM met with patient. A&Ox4. Lives alone in 2 family. Brother lives on first floor and can assist patient. Pt still drive, however patient has been weak over last 2 weeks and is agreeable to PT evaluation with home PT only. Taxing effort to leave home. Pt is not agreeable to STR. No referrals placed. Pt is not avctive with any agency. J&J x1. HCP reviewed, completed and signed. Copies given. Uploaded into [employer] and [facility]. HCP/sister in law, Juani Madden ([phone]). Family will transport home. D/C plan: home with [facility] for PT if recommended.
--- NOTE | 2022-10-21 23:06 | PC.NURSE ---
Patient arrived to overflow ed bed 9, patient is alert and oriented x3, vss, l/s diminished, denies pain at this time. Ambulated patient to bathroom with 1 assist, weak gait. Unable to turn on patient's tv, per patient's request, patient moved to bed 6 with a working tv. Snack and blanket provided, call carrasquillo within reach.
[2022-10-22] VITALS: BP 134/84; PULSE 75; RESP 16; TEMP 37.2; O2SAT 94
--- NOTE | 2022-10-22 02:00 | PC.NURSE ---
Assumed care at 2300. Pt is in the room,awake but denies any pain.
[2022-10-22 06:00] VITALS: BP 144/77; PULSE 86; RESP 16; TEMP 36.8; O2SAT 94
[2022-10-22 07:47] VITALS: BP 140/84; PULSE 87; RESP 12; TEMP 36.8; O2SAT 94
--- NOTE | 2022-10-22 08:25 | MHC.EDTECH ---
Patient ambulated with PT ,cleaned bed and sat on recliner. wash and relaxing watching TV.
[2022-10-22] MEDS: lisinopriL 10 MG TABLET PO (10:48)
[2022-10-22] MEDS: Metoprolol Succinate ER 25 MG TAB.ER.24H PO (10:48)
[2022-10-22] MEDS: Montelukast Sodium 10 MG TABLET PO (10:48)
[2022-10-22] MEDS: Multivitamin TABLET 1 TAB PO (10:49)
[2022-10-22] MEDS: Baclofen 10 MG TABLET 5 MG PO ×2 (10:52→20:32)
--- NOTE | 2022-10-22 10:54 | MHC.CM.ED ---
Addendum entered by Adelina Castle 10/22/22 11:58: [facility] does not have a bed to offer. [facility] is able to offer a bed but wants patient to understand she will not be able to smoke while at the facility. Patient verbalized understanding and agreement. [facility] is in the process of obtaining insurance auth. Addendum entered by Adelina Castle 10/22/22 11:27: Facility choices: 1) [facility] 2)[facility]. Referrals made via [facility]. Original Note: Patient remains in ER overflow. Physical therapy eval completed. Acute rehab is recommended. Referrals made to all 3 acute rehab. None of these facilities feel [facility] will authorize acute rehab. Met with patient in regards to discharge planning. Patient originally declined short term rehab and wanted to try to go home with [facility]. Received notification from MIRANDA Jones that patient had changed her mind and is now requesting STR. Met with patient again. List of facilities contracted with patient's insurance provided from [facility]. Patient will provide at least 2 facility choices to CM. Continue to monitor for d/c needs.
--- NOTE | 2022-10-22 11:58 | PC.NURSE ---
alert, speech clear, skin wpd, nad, initially stated she wanted to go home but had second thoughts and wants snf placement now, pt w nad, gen weakness, ate breakfast and medicated as ordered,
[2022-10-22] MEDS: Acetaminophen 325 MG TABLET 650 MG PO (17:26)
[2022-10-22] MEDS: Fluticasone Propionate Nasal 16 GM SPRAY 1 SPRAY NOSTRIL-B (17:27)
[2022-10-22 17:28] VITALS: BP 116/70; PULSE 78; TEMP 36.3; O2SAT 96
[2022-10-23] MEDS: Omeprazole 40 MG CAPSULE.DR PO (05:22)
[2022-10-23 05:33] VITALS: BP 145/91; PULSE 76; RESP 17; TEMP 36.2; O2SAT 95
[2022-10-23 07:10] VITALS: BP 157/82; PULSE 80; RESP 20; TEMP 36.3; O2SAT 98
[2022-10-23] MEDS: Multivitamin TABLET 1 TAB PO (08:59)
[2022-10-23] MEDS: Baclofen 10 MG TABLET 5 MG PO ×2 (09:00→20:58)
[2022-10-23] MEDS: Metoprolol Succinate ER 25 MG TAB.ER.24H PO (09:01)
[2022-10-23] MEDS: lisinopriL 10 MG TABLET PO (09:01)
[2022-10-23] MEDS: Montelukast Sodium 10 MG TABLET PO (09:01)
--- NOTE | 2022-10-23 10:16 | MHC.EDTECH ---
Assisted patient to & from restroom with wheelchair. Shanon Hendricks
--- NOTE | 2022-10-23 13:12 | MHC.CM.ED ---
Patient remains in ER overflow. [facility] is still in the process of trying to obtain insurance auth. Continue to monitor for d/c needs.
[2022-10-23] MEDS: Acetaminophen 325 MG TABLET 650 MG PO (14:19)
--- NOTE | 2022-10-23 21:18 | PC.NURSE ---
pt assessed. denies any pain, oob to commode tolerated well
[2022-10-23 22:00] VITALS: BP 148/74; PULSE 85; RESP 16; TEMP 36.8; O2SAT 98
[2022-10-24 06:00] VITALS: BP 156/98; PULSE 74; RESP 16; TEMP 36.7; O2SAT 98
[2022-10-24] MEDS: Omeprazole 40 MG CAPSULE.DR PO (06:08)
[2022-10-24] MEDS: Acetaminophen 325 MG TABLET 650 MG PO (06:10)
--- NOTE | 2022-10-24 06:13 | PC.NURSE ---
PT OOB TO CATHERINE DURING THE SHIFT, TOLERATED WELL, C/O SEVERE HEADACHE MEDICATED WITH TYLENOL PO
--- NOTE | 2022-10-24 06:15 | MHC.EDTECH ---
PATIENT VOID X 2 ON BEDSIDE COMMODE ,PATIENT SLEPT MOST OF THE NIGHT .
[2022-10-24] MEDS: Multivitamin TABLET 1 TAB PO (08:02)
[2022-10-24] MEDS: Metoprolol Succinate ER 25 MG TAB.ER.24H PO (08:03)
[2022-10-24] MEDS: lisinopriL 10 MG TABLET PO (08:03)
[2022-10-24] MEDS: Baclofen 10 MG TABLET 5 MG PO (08:03)
[2022-10-24] MEDS: Montelukast Sodium 10 MG TABLET PO (08:03)
[2022-10-24] MEDS: Fluticasone Propionate Nasal 16 GM SPRAY 1 SPRAY NOSTRIL-B (08:06)
--- NOTE | 2022-10-24 09:08 | MHC.CM.ED ---
Patient remains in ER overflow. Insurance auth has been obtained by [facility]. Patient can leave at 10am. Radha PAVON booked. Med nec with chart. Patient, Helen JEAN and Yadira HARKINS aware. Continue to monitor for d/c needs.
== END 2022-10-24 10:00 ==
PROVIDERS: Physician Assistant Medical; Emergency Provider Emergency Medicine; PCP Physician Assistant
DX: M48.56XA Collapsed vertebra, not elsewhere classified, lumbar region, initial encounter for fracture (principal); N39.0 Urinary tract infection, site not specified; R06.02 Shortness of breath; R26.2 Difficulty in walking, not elsewhere classified; R00.0 Tachycardia, unspecified; Z20.822 Contact with and (suspected) exposure to COVID-19; Z20.828 Contact with and (suspected) exposure to other viral communicable diseases; F17.210 Nicotine dependence, cigarettes, uncomplicated; Z71.6 Tobacco abuse counseling; Z79.899 Other long term (current) drug therapy
CPT/HCPCS: 71275; 80053; 80307; 81001; 83735; 83880; 84484; 85025; 87086; 87088; 87186; 87635; 93005; 96361; 96374; 97162; 99285; J3475; Q9967

== ENCOUNTER 2022-11-13 12:28 | Outpatient (REF) | payer MEDICARE, SELFPAY ==
[2022-11-13 13:10] LABS: Estimated Average Glucose 77 mg/dL; Hemoglobin A1c % 4.3 %
[2022-11-13 13:44] LABS: HIV AB/AG Nonreactive (Nonreactive); HIV Num 1 0.06 S/CO (0.00-0.99)
[2022-11-13 13:54] LABS: Erythrocyte Sedimentation Rate 46 MM/HR (0-20)
[2022-11-13 13:55] LABS: Folate 17.4 ng/mL (> or = 4.0); Vitamin B12 378 pg/mL (200-900)
[2022-11-15 16:23] LABS: CRP High Sensitivity >10.0 mg/L
== END 2022-11-13 12:29 | disposition home or self-care (01) ==
LOC: HO.LAB 12:28
PROVIDERS: PCP Physician Assistant; Visit Provider Physician Assistant
DX: Z11.4 Encounter for screening for human immunodeficiency virus [HIV] (principal); K52.9 Noninfective gastroenteritis and colitis, unspecified; D53.9 Nutritional anemia, unspecified; E53.8 Deficiency of other specified B group vitamins; R64 Cachexia; R73.01 Impaired fasting glucose
CPT/HCPCS: 36415; 82607; 82746; 83036; 85652; 86141; 87389

== ENCOUNTER 2022-11-21 | Outpatient (REF) | payer MEDICARE, SELFPAY ==
[2022-11-22 12:42] LABS: Leukocytes Stool Qualitative NEGATIVE (NEGATIVE)
== END 2022-11-21 00:01 | disposition home or self-care (01) ==
LOC: HO.LNP
PROVIDERS: Visit Provider Physician Assistant
DX: K52.9 Noninfective gastroenteritis and colitis, unspecified (principal)
CPT/HCPCS: 87338; 89055

== ENCOUNTER 2022-12-20 09:18 | Outpatient (REF) | payer MEDICARE, SELFPAY ==
--- NOTE | ~2022-12-20 | XR_ITS ---
EXAMINATION: XR LUMBOSACRAL SPINE CLINICAL INFORMATION: Reason for Exam S32.019A - Unspecified fracture of first lumbar vertebra COMPARISON: Lumbar spine radiographs 06/22/2022 TECHNIQUE: 4 views of the lumbar spine FINDINGS: 5 nonrib-bearing lumbar-type vertebral bodies. Age-indeterminate wedge compression deformity of the L1 vertebral body new from prior with 50% height loss and no significant bony retropulsion. Levoconvex curvature of the lumbar spine. Grade 1 anterolisthesis of L3 on L4. No instability on flexion extension views. Moderate multilevel degenerative disc disease similar to prior. Paravertebral soft tissues are unremarkable. XR/XR lumbar spine 4V min IMPRESSION: 1. Age-indeterminate wedge compression deformity of the L1 vertebral body new from prior with 50% height loss and no significant bony retropulsion. 2. Levoconvex curvature of the lumbar spine. Grade 1 anterolisthesis of L3 on L4. No instability on flexion extension views. 3. Moderate multilevel degenerative disc disease similar to prior.
== END 2022-12-20 09:19 | disposition home or self-care (01) ==
LOC: HO.HOSX 09:18
PROVIDERS: PCP Physician Assistant; Visit Provider Physician Assistant
DX: S32.019A Unspecified fracture of first lumbar vertebra, initial encounter for closed fracture (principal)
CPT/HCPCS: 72110; 99202

== ENCOUNTER 2023-01-24 14:35 | Outpatient (REF) | payer MEDICARE, SELFPAY ==
--- NOTE | ~2023-01-24 | MR_ITS ---
EXAMINATION: MR LUMBAR SPINE WITHOUT CONTRAST CLINICAL INFORMATION: Fracture of 1st lumbar vertebra. COMPARISON: Plain films of the lumbar spine 06/22/2022. CT scan showed chest 10/21/2022. Remote MRI scan of the lumbar spine 11/22/2010. TECHNIQUE: MRI of the lumbar spine was obtained using routine sequences without contrast. FINDINGS: VERTEBRAL BODIES AND PARASPINAL STRUCTURES: There is a sigmoid scoliosis which is convex to the right in the upper lumbar region and toward the left at L4. The study redemonstrates mild grade 1 anterolistheses of L3 on L4 and L4 on L5. There is a retrolisthesis of L1 on L2. There is multilevel narrowing of intervertebral disc height, most severe at L3-L4 and L4-L5. There are extensive degenerative endplate contour changes with predominantly edematous endplate signal at this level. Edematous signal is noted in the bilateral pedicles of L4 and L5. The study demonstrates a compression fracture of the body of L1 superiorly with loss of approximately 50% vertebral body height anteriorly. This vertebra has slightly hyperintense STIR and hyperintense T1 signal, consistent with an acute to subacute compression fracture. There is slight loss of vertebral body height of T12 toward the right. There is invagination of discs into the superior endplate of T12 and inferior endplate of L1. There is also increased STIR signal with low T1 signal in the superior body of S2, which is consistent with age-indeterminate sequelae of trauma. Vertebral body heights are maintained at other levels. There is abnormal signal in the bilateral sacral ala. Overall, marrow signal is slightly heterogenous. The visualized retroperitoneal and pelvic structures are unremarkable. CONUS MEDULLARIS AND CAUDA EQUINA: Normal, terminating at the level of L1. The lower thoracic spinal cord appears normal. The cauda equina nerve roots and filum terminale appear normal. 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 SPINAL LEVELS: T12-L1: There is mild bilateral facet arthropathy. There is a central and left-sided disc protrusion which flattens the ventral thecal sac. There is posterior protrusion of the body of L1 into the spinal canal centrally and toward the left which compresses the thecal sac with no significant central stenosis. The neural foramina are patent bilaterally. L1-L2: There is mild to moderate bilateral facet arthropathy. There is a broad-based posterior disc protrusion which flattens the ventral thecal sac but there is no central stenosis. There are left greater than right foraminal disc protrusions without definite exiting nerve root impingement. L2-L3: There is moderate bilateral facet arthropathy with facet joint effusions and ligamenta flava hypertrophy. There is dorsal epidural lipomatosis. There is a broad-based posterior disc protrusion flattens the ventral thecal sac and is mild narrowing of the subarticular recesses. There is no central stenosis. The neural foramina are patent bilaterally. L3-L4: There is markedly severe right and severe left facet arthropathy with ligamenta flava hypertrophy and facet joint effusions. There is a small synovial cyst off the right facet joint posteriorly. There is unroofing of the disc as a result the of anterolisthesis. There are left and right foraminal disc protrusions with impingement on the exiting L3 nerve roots. There is marked narrowing of the right subarticular recess. There is a 3 mm synovial cyst anteromedially off the right facet joint. There is moderate to severe central stenosis. L4-L5: There is markedly severe right and severe left facet arthropathy with ligamenta flava hypertrophy and facet joint effusions. There is unroofing of the disc as a result of the anterolisthesis. There is a right foraminal disc protrusion impinging on the exiting right L4 nerve root. There is narrowing of the subarticular recesses bilaterally, and there is mild central stenosis. L5-S1: There is mild bilateral facet arthropathy. There is shallow posterior disc protrusion with mild flattening of the ventral thecal sac but there is no central stenosis. No foraminal nerve root impingement. MR/MR lumbar spine wo con IMPRESSION: 1. There is an acute to subacute compression fracture of the body of L1 with loss of approximately 50% vertebral body height. There is mild loss of vertebral body height of T12 toward the right. There is abnormal signal in the body of S2 which is consistent with age-indeterminate sequelae of trauma. 2. There is a sigmoid scoliosis, and there are grade 1 anterolistheses of L3 on L4 and L4 on L5. 3. At L3-L4 there is markedly severe right and severe left facet arthropathy. There are bilateral foraminal disc protrusions impinging on the exiting L3 nerve roots. There is marked narrowing of the right subarticular recess and there is moderate to severe central stenosis. 4. At L4-L5 there is markedly severe right and severe left facet arthropathy. There is a right foraminal disc protrusion impinging on the exiting right L4 nerve root. There is mild central stenosis. 5. Spondylitic and facet arthropathic changes are demonstrated at multiple other levels as described above.
[2023-01-24 15:46] LABS: MANUAL DIFF FLAG NO
[2023-01-24 16:38] LABS: Basophils Percent Auto 0.9 % (0-2); Eosinophils Percent Auto 0.4 % (0-4); Hematocrit 37.3 % (37.0-47.0); Hemoglobin 13.3 g/dl (12.0-16.0); Imm Gran Abs Auto 0.01 X10*3/uL (0.00-0.03); Imm Gran Pct Auto 0.2 % (0.0-0.4); Lymphocytes Percent Auto 21.2 % (20-40); Mean Corpuscular HGB Conc 35.7 g/dl (31.0-35.0); Mean Corpuscular Hemoglobin 36.1 pg (27.0-33.0); Mean Corpuscular Volume 101.4 fL (80.0-98.0); Mean Platelet Volume 9.8 fL (9.4-12.3); Monocytes Absolute Auto 0.3 X10*3/uL (0.1-1.2); Monocytes Percent Auto 7.1 % (2-11); Neutrophils Absolute Auto 3.2 x10*3/uL (2.0-8.3); Neutrophils Percent Auto 70.2 % (45-73); Platelet Count 164 X10*3/uL (160-400); Red Blood Count 3.68 X10*6/uL (4.20-5.50); Red Cell Distribution Width 13.4 % (11.0-16.0); White Blood Count 4.6 X10*3/uL (4.8-10.8)
[2023-01-24 17:00] LABS: B Type Natriuretic Peptide 112 pg/mL (<100)
[2023-01-24 17:15] LABS: Alanine Aminotransferase 10 U/L (0-31); Albumin Level 3.7 g/dL (3.5-5.0); Alkaline Phosphatase 90 U/L (39-117); Anion Gap 14 (12-20); Aspartate Amino Transferase 22 U/L (5-31); Bilirubin Total 0.2 mg/dL (0.0-1.0); Blood Urea Nitrogen 15 mg/dL (9-16); Calcium 9.2 mg/dL (8.4-10.2); Carbon Dioxide 27 mmol/L (22-29); Chloride 94 mmol/L (96-108); Estimated Glomerular Filt Rate 55; Glucose Random 109 mg/dL (60-115); Magnesium 1.6 mg/dL (1.6-2.6); Potassium 3.7 mmol/L (3.3-5.1); Sodium 131 mmol/L (135-145); Total Protein 6.8 g/dL (6.5-8.0)
== END 2023-01-24 14:36 | disposition home or self-care (01) ==
LOC: HO.LAB 14:35
PROVIDERS: PCP Physician Assistant; Visit Provider Nurse Practitioner Family
DX: Z13.0 Encounter for screening for diseases of the blood and blood-forming organs and certain disorders involving the immune mechanism (principal); S32.019A Unspecified fracture of first lumbar vertebra, initial encounter for closed fracture; I10 Essential (primary) hypertension; R79.89 Other specified abnormal findings of blood chemistry; R79.0 Abnormal level of blood mineral
CPT/HCPCS: 36415; 72148; 80053; 83735; 83880; 85025

== ENCOUNTER 2023-02-05 10:11 | Outpatient (REF) | payer MEDICARE, SELFPAY ==
--- NOTE | ~2023-02-05 | MM_ITS ---
EXAMINATION: BONE DENSITOMETRY CLINICAL INDICATION: Asymptomatic menopausal state. COMPARISON: Baseline BD dated 03/31/2018. TECHNIQUE: Using a [employer] DXA System (software version: 13.1) manufactured by [employer], dual-energy x-ray absorptiometry was performed of the lumbar spine and left hip. The images are of good technical quality. Summary results are attached. FINDINGS: LEFT FEMUR, NECK: Current: BMD 0.485 g/cm2, Z-score -1.9, T-score -4.0, osteoporosis. Baseline: BMD 0.882 g/cm2. LEFT FEMUR, TOTAL: Current: BMD 0.391 g/cm2, Z-score -3.0, T-score -4.9, osteoporosis, 57.5% decrease from baseline (<5% change is not significant). Baseline: BMD 0.920 g/cm2. AP SPINE L1-L2 (excluding L3 and L4): The data of L1-L4 has been changed to exclude the L3 and L4 vertebral bodies, because degenerative sclerosis at these levels may cause overestimation of lumbar spine density. Current: BMD 1.163 g/cm2, Z-score 2.4, T-score 0.0, normal, 5.6% increase from baseline (<5% change is not significant). Baseline: BMD 1.101 g/cm2. IDENTIFIED RISK FACTORS: Early menopause, secondary osteoporosis, family history (parental hip fracture), low calcium intake, low body weight, height loss, 3 or more alcoholic drinks per day, tobacco use (current smoker), history of fracture (adult), glucocorticoids (chronic). HISTORY OF FRACTURE: Spine. Elbow. MEDICATIONS: None listed. MM/XR DEXA axial skeleton IMPRESSION: 1. DIAGNOSIS: Severe osteoporosis based on the lowest T-score value of -4.9 in the total femur and history of fracture applying World Health Organization criteria. 2. 10-YEAR FRACTURE RISK PREDICTION, FRAX: According to the guidelines, FRAX calculation should only be performed on patients in the osteopenia bone density category. Therefore, FRAX was not performed on this patient. 3. Treatment Recommendations: NOF guidelines recommend consideration for treatment in postmenopausal women and men age 50 and older presenting with the following: -A hip or vertebral (clinical or morphometric) fracture. -T-score less than or equal to -2.5 at the femoral neck or spine after appropriate evaluation to exclude secondary causes. -Low bone mass at the hip or spine and a 10-year fracture probability by FRAX of greater than or equal to 3% for hip fracture or greater than or equal to 20% for major osteoporotic fracture based on the [place] adapted WHO algorithm. 4. Other Recommendations: All treatment decisions require clinical judgment and consideration of individual patient factors, including patient preferences, comorbidities, previous drug use, risk factors not captured in the FRAX model (e.g. frailty, falls, vitamin D deficiency, increased bone turnover, interval significant decline in bone density) and possible under or overestimation of fracture risk by FRAX. Additional medical evaluation for secondary cause of low bone mineral density may be appropriate. FUTURE SCAN RECOMMENDATION: People with diagnosed cases of osteoporosis or at high risk for fracture should have regular bone mineral density tests. For patients eligible for Medicare, routine testing is allowed once every 2 years. The testing frequency can be increased to one year for patients who have rapidly progressing disease, those who are receiving or discontinuing medical therapy to restore bone mass, or have additional risk factors.
== END 2023-02-05 10:12 | disposition home or self-care (01) ==
LOC: HO.MAMMO 10:11
PROVIDERS: PCP Physician Assistant; Visit Provider Physician Assistant
DX: Z13.820 Encounter for screening for osteoporosis (principal); Z78.0 Asymptomatic menopausal state
CPT/HCPCS: 77080

== ENCOUNTER → 2023-02-05 10:30 | Outpatient (BNV) | payer MEDICARE, SELFPAY | PROVIDERS: PCP Physician Assistant; Visit Provider Radiology Diagnostic Radiology | DX: Z78.0 Asymptomatic menopausal state (principal) | CPT/HCPCS: 77080 ==

== ENCOUNTER 2023-02-19 16:12 | Inpatient (IN) | payer MEDICARE, SELFPAY ==
--- NOTE | ~2023-02-19 | XR_ITS ---
EXAMINATION: XR KNEE, LEFT CLINICAL INFORMATION: Pain fall COMPARISON: None available. TECHNIQUE: Four views of the left knee. FINDINGS: Decreased bone normal density which decreases sensitivity for fracture evaluation. No acute visible fracture or dislocation. Multicompartment arthritic changes. Chondrocalcinosis along the medial and lateral tibial plateau. Joint spaces and alignment are otherwise maintained. No large knee joint effusion. Soft tissues are unremarkable. XR/XR knee LT 4V IMPRESSION: 1. Decreased bone normal density which decreases sensitivity for fracture evaluation. 2. No acute visible fracture or dislocation. 3. Multicompartment arthritic changes with chondrocalcinosis along the medial and lateral tibial plateau.
--- NOTE | ~2023-02-19 | XR_ITS ---
EXAMINATION: XR FOOT, LEFT CLINICAL INFORMATION: Fall pain COMPARISON: None available. TECHNIQUE: AP, lateral, and oblique views of the left foot. FINDINGS: Decreased bone normal density which decreases sensitivity for fracture evaluation. No acute visible fracture or dislocation. Joint spaces and alignment are otherwise maintained. Soft tissues are unremarkable. XR/XR foot LT min 3V IMPRESSION: 1. Decreased bone normal density which decreases sensitivity for fracture evaluation. 2. No acute visible fracture or dislocation.
--- NOTE | ~2023-02-19 | XR_ITS ---
EXAMINATION: XR HIP, LEFT CLINICAL INFORMATION: Fall pain COMPARISON: None available. TECHNIQUE: Single view of the pelvis 3 views of the left hip. FINDINGS: Decreased bone normal density which decreases sensitivity for fracture evaluation. No acute visible fracture or dislocation. Increased valgus angulation of the bilateral femoral acetabular joints. Degenerative arthropathy of the bilateral femoral acetabular joints. Degenerative changes of the lower lumbar and lumbosacral spine. Joint spaces and alignment are otherwise maintained. Bowel gas unremarkable. Soft tissues are unremarkable. XR/XR hip LT min 2V IMPRESSION: 1. Decreased bone normal density which decreases sensitivity for fracture evaluation. 2. No acute visible fracture or dislocation. 3. Increased valgus angulation of the bilateral femoral acetabular joints. 4. Degenerative arthropathy of the bilateral femoral acetabular joints. 5. Degenerative changes of the lower lumbar and lumbosacral spine.
--- NOTE | ~2023-02-19 | XR_ITS ---
EXAMINATION: XR PELVIS CLINICAL INFORMATION: Status post left hip hemiarthroplasty COMPARISON: None available. TECHNIQUE: AP view of the pelvis. This radiograph is focused on the hips. FINDINGS: Bones are diffusely osteopenic. The visualized osseous pelvic ring is intact. Alignment is normal at the partially visualized sacroiliac joints and pubic symphysis. The right hip joint space is maintained. There is normal alignment at the left hip, status post hemiarthroplasty, with prosthetic femoral head well-positioned within the intact acetabulum. Mild postoperative soft tissue gas of the left hip with lateral skin marce in place. The femoral stem is cemented within the medullary cavity of the proximal femoral diaphysis. No periprosthetic fracture. XR/XR pelvis 1-2V IMPRESSION: Normal alignment at the left hip, status post hemiarthroplasty.
--- NOTE | ~2023-02-19 | US_ITS ---
EXAMINATION: US RETROPERITONEAL LIMITED (RENAL ONLY) CLINICAL INFORMATION: Acute kidney injury, concern for obstruction. COMPARISON: Abdominal ultrasound 10/25/2011 TECHNIQUE: Real-time imaging of the kidneys. FINDINGS: RIGHT KIDNEY: 9.4 x 4.6 x 5.1 cm (SAG x AP x TRV). The kidney is normal in size, contour, and echogenicity. Renal cortical thickness is normal. No renal calculi or hydronephrosis. Subcentimeter benign-appearing renal cysts, no follow-up imaging recommended. LEFT KIDNEY: 10.3 x 5.7 x 4.4 cm (SAG x AP x TRV). The kidney is normal in size, contour, and echogenicity. Renal cortical thickness is normal. No calculi or focal parenchymal lesions. No hydronephrosis. Incidentally noted small right pleural effusion. Cholelithiasis, suboptimally evaluated. US/US renal BI IMPRESSION: 1. No hydronephrosis or nephrolithiasis. 2. Small right pleural effusion. 3. Cholelithiasis, suboptimally evaluated. If any clinical concern for acute cholecystitis dedicated right upper quadrant ultrasound could be obtained.
--- NOTE | ~2023-02-19 | CT_ITS ---
EX EXAMINATION: CT FEMUR WITHOUT IV CONTRAST, LEFT CLINICAL INFORMATION: Fall. Pain. COMPARISON: CT head from 07/07/2022. TECHNIQUE: Contiguous axial imaging was performed through the left femur without intravenous contrast. Coronal and sagittal reformatted images were obtained. This CT examination was performed using dose optimization techniques as appropriate, variously including the following: Automated exposure control. Adjustment of mA and/or kV according to patient size (this includes techniques or standardized protocols for targeted exams where dose is matched to indication/reason for exam; i.e. extremities or head). Use of iterative reconstruction technique. DLP: 382 mGy-cm. FINDINGS: There is a minimally displaced left femoral neck fracture. There is mild left hip degenerative change with minimal lateral loss of joint space and subchondral sclerosis. The bony structures are osteopenic. No femoral shaft fracture is seen. The soft tissues are unremarkable. CT/CT femur LT wo IV con IMPRESSION: 1. Minimally displaced left femoral neck fracture. 2. Osteopenia.
--- NOTE | ~2023-02-19 | CT_ITS ---
EXAMINATION: CT ANGIOGRAM OF THE CHEST WITH AND WITHOUT CONTRAST (CT PULMONARY ANGIOGRAM FOR PE) CLINICAL INFORMATION: Room-air hypoxia, new femoral neck fracture. COMPARISON: The 2022 TECHNIQUE: Prior to contrast administration, noncontrast localization images were obtained. Subsequently, multidetector volumetric imaging was performed from the thoracic inlet to below the diaphragms following the administration of 65 mL Omnipaque 350 intravenous contrast. No contrast reaction reported Sagittal, coronal, and MIP oblique sagittal reformatted images were obtained on the CT workstation, uploaded to PACS, and reviewed. This CT examination was performed using dose optimization techniques as appropriate, variously including the following: *Automated exposure control *Adjustment of mA and/or kV according to patient size (this includes techniques or standardized protocols for targeted exams where dose is matched to indication/reason for exam; i.e. extremities or head) *Use of iterative reconstruction technique Total exam dose-length product 177 mGy-cm FINDINGS: QUALITY OF STUDY/CONTRAST BOLUS: Satisfactory. PULMONARY ARTERIES: No pulmonary emboli. THORACIC AORTA: No aneurysm. LUNG: There is mild upper lung emphysematous change. There is inferior right upper lobe and right middle scarring. There is minimal atelectasis scarring at the left lung base. There is a 5 mm right upper lobe nodule. There are two adjacent 2 to 3 mm left apical nodules similar to prior. The lungs are otherwise clear. PLEURA: No pleural effusion or pneumothorax. MEDIASTINUM: Normal heart size. No pericardial effusion. No hilar or mediastinal lymphadenopathy. No evidence of septal bowing or right heart strain. CORONARY ARTERY CALCIFICATION: None visualized on this study. CHEST WALL/AXILLA: No axillary or internal mammary lymphadenopathy. OSSEOUS STRUCTURES: There is a stable L1 compression fracture. UPPER ABDOMEN: Unremarkable. No reflux of contrast into the hepatic veins to suggest elevated right heart pressures. CT/CT angio chest PE protocol IMPRESSION: 1. No evidence for pulmonary embolism. 2. Mild emphysema 3. No active cardiopulmonary disease. VTE: negative
[2023-02-19 16:17] VITALS: BP 116/90; PULSE 94; O2SAT 95
[2023-02-19 16:25] VITALS: BP 186/97; PULSE 84; RESP 16; TEMP 37; O2SAT 98; BMI 16.9
--- NOTE | 2023-02-19 16:30 | ED_ITS ---
HPI - Extremity Injury (Lower) General Chief Complaint: Extremity Injury, Lower Stated Complaint: fall 2 days ago left leg hip pain, per ems Time Seen by Provider: 02/19/23 16:22 Source: patient and EMS Mode of arrival: EMS Limitations: no limitations History of Present Illness HPI Narrative: Patient is a 68-year-old female who presents emergency department via EMS for evaluation of left lower extremity pain after mechanical trip and fall 2 days ago. She reports that she was walking to the bathroom when she tripped landing on her left side. She denies any head strike or loss of consciousness. She is experiencing pain to the left hip, the left knee and just above it, in addition to the left foot. She reports that she has been unable to weightbear/ambulate since this occurred. States that she has been ?scooting around on her bottom? to get around her home. She lives alone, does not have any in-home support. She denies any additional physical complaints at this time. Related Data Home Medications Medication Instructions Recorded Confirmed albuterol sulfate 90 mcg/actuation 1 puff inhalation QID PRN 10/21/22 02/19/23 aerosol inhaler Shortness Of Breath fluticasone propionate 50 1 spray intranasal BID PRN 10/21/22 02/19/23 mcg/actuation nasal Allergic Symptoms spray,suspension (Flonase Allergy Relief) multivitamin 1 tab PO DAILY 10/21/22 02/19/23 omeprazole 40 mg capsule,delayed 40 mg PO DAILY@0630 10/21/22 02/19/23 release Previous Rx's Medication Instructions Recorded montelukast 10 mg tablet 10 mg PO DAILY 90 days #90 tabs 02/19/22 blood pressure test kit-small #1 ea 03/11/22 metoprolol succinate 25 mg 25 mg PO DAILY #90 tabs 07/08/22 tablet,extended release 24 hr lisinopril 10 mg tablet 10 mg PO DAILY #90 tabs 08/06/22 back brace #1 ea 08/20/22 acetaminophen 300 mg-codeine 30 mg 1 tab PO Q8H PRN pain 5 days #15 12/28/22 tablet tabs Allergies Allergy/AdvReac Type Severity Reaction Status Date / Time cat dander Allergy Unknown Unknown Verified 12/20/22 09:54 morphine Allergy Unknown unknown Verified 12/20/22 09:54 seasonal allergies Allergy Unknown Unknown Uncoded 10/21/22 10:32 Review of Systems 2 Review of Systems: Yes all other systems are reviewed and are negative [facility] Past Medical History Attestation statement: The following information was validated with the patient. Source: old records reviewed Surgical History History of cervical discectomy Family History Family History Father Lung cancer Brain cancer Mother CVD (cardiovascular disease) Breast cancer Son In good health Brother In good health Social History Social History Housing: House Alcohol intake: current Alcohol intake frequency: 0-2 drinks per day Patient Tobacco Use Status: Current everyday Tobacco user Cigarettes Per Day: 10 Smoked in Last 30 Days: No e-Cigarette/Vaping Use: Never Used Use of substances other than those prescribed or required for medical reasons: No Advance Directives: Yes Advance Directives on File: Yes Advance Directives Date on File: 10/21/22 service: No Current occupational status: retired Cognitive needs: No Hearing needs: No Vision needs: No Physical Exam 2 Vital Signs: Vital Signs: Last Vital Signs Temp 98.7 F 02/20/23 00:20 Pulse 92 02/20/23 00:26 Resp 16 02/20/23 00:26 BP 186/104 H 02/20/23 00:20 Pulse Ox 88 L 02/20/23 00:26 O2 Del Method Room Air 02/20/23 00:26 O2 Flow Rate 2 02/20/23 00:20 BMI result Body Mass Index 16.9 Appearance: Alert.?Oriented to person, place and time. No acute distress.?Normal affect. Eyes: Pupils equal, round and reactive to light.? ENT: Pharynx normal.?? Neck: Normal inspection.? Neck supple.?? CVS: Heart sounds normal. Normal heart rate and rhythm.? Pulses normal.?? Respiratory: No respiratory distress.? Lung sounds clear to auscultation bilaterally?? Abdomen: Soft and non-tender. Normoactive bowel sounds. Skin: Skin warm and dry.? Normal skin color.? Extremities: No lower extremity edema.? No calf ttp. 2+ DP/PT pulse bilaterally, decreased AROM.?notable bruising to the dorsal midfoot and infrapatellar region. Neuro: Moves all extremities spontaneously. Sensation intact bilaterally. CN II- XII intact. No focal neuro deficits. Course Reevaluation(s) Reevaluation #1: XR imaging of the left hip, knee, and foot reveals no evidence of acute visible fracture or dislocation. After receiving tramadol she is noted to be able to range the left hip and knee though it is still painful to do so. She remains with difficulty ambulating. Received call from lab for critical potassium of 6.0, not hemolyzed, hyponatremia with sodium of 127, hypochloremia 88 with Normal renal function. Has history of IBS, multiple episodes of diarrhea at baseline, suspect hypovolemia, although given with history are may be a component of rhabdomyolysis, CPK was checked and is normal. Uncertain whether there is any underlying adrenal insufficiency, ordered additional labs including urine sodium and osmol, serum osmol. Patient received 2 L normal saline IV fluid, sodium bicarb 50 mEq IV, calcium gluconate 2 g IV, low, 10 mg p.o. EKG revealing normal sinus rhythm with ventricular rate of 84, TX interval 154, QTC 446, no ST elevation, no ST depression, no T-wave inversion, peaked Ts are present Time: 18:53 Reevaluation #2: Urinalysis concerning for urinary tract infection, Rocephin IV ordered, she is asymptomatic however. Reviewed additional labs; serum osmolality is in the normal range though low, urine osmolality is low, urine sodium is high, again concerning for potential underlying adrenal insufficiency, she is not hypotensive however tachycardic no profound weakness, confusion, reduced consciousness, no indication of crisis at this time, this likely will require further outpatient workup. Time: 21:20 Reevaluation #3: Repeat BMP with improvement in sodium to 131, normalized potassium at 4.3, improved chloride. I discussed this case previously with hospitalist; Dr. Wilkerson, upon review of repeat serum labs, at this time do not feel that there is indication for hospital admission. She continues to have significant pain despite being medicated. Will obtain CT of the left femur for further evaluation of possible fracture. Time: 22:24 Additional Reevaluation(s): 00:20 advised by nursing staff that patient was noted to be hypoxic on room air with O2 saturation of 87%, with good pleath and monitor. Patient speaking clear full sentences, no apparent respiratory distress. At this time she denies any history of chronic lung disease or sleep apnea. She denies chest pain or shortness of breath. Re-examination of the chest wall without acute abnormality, erythema, crepitus or palpable deformity. CT of the femur indicates a minimally displaced left femoral neck fracture, concerning at this time for possible pulmonary embolism as etiology for hypoxia in the setting of fracture. The consult it again with hospitalist; Dr. Wilkerson, accepts patient for admission at this time. 02:30 - CT angio of the chest remains pending at this time. Dr. Wilkerson aware that results are pending. Ed Attending Dr. Malloy aware of patient as she remains in the ED. Medications Administered Discontinued Medications Generic Name Dose Route Start Last Admin Trade Name Freq PRN Reason Stop Dose Admin Fentanyl 25 mcg 02/20/23 00:06 02/20/23 01:05 Fentanyl Citrate/Pf 100 Mcg/2 Ml Vial IVPUSH 02/20/23 00:07 25 mcg ONCE ONE Administration Protocol Calcium Gluconate 2 gm in 100 mls @ 50 mls/hr 02/19/23 18:53 02/19/23 21:31 Calcium Gluconate IV 02/19/23 20:52 Infused ONCE ONE Infusion Sodium Chloride 1,000 mls @ 999 mls/hr 02/19/23 19:00 02/19/23 22:12 Ns IV 02/19/23 21:00 Infused .Q1H1M JODI Infusion Ceftriaxone Sodium 1 gm/ 50 mls @ 100 mls/hr 02/19/23 21:19 02/19/23 22:12 Sodium Chloride IV 02/19/23 21:48 Infused ONCE ONE Infusion Iohexol 65 ml 02/20/23 01:34 02/20/23 01:35 Iohexol 350 Mg/Ml 100 Ml Infus..Btl IV 02/20/23 01:35 65 ml ONCE ONE Administration Oxycodone HCl 5 mg 02/19/23 20:38 02/19/23 21:21 Oxycodone Hcl Immed Release 5 Mg Tablet PO 02/19/23 20:39 5 mg ONCE ONE Administration Sodium Bicarbonate 50 meq 02/19/23 18:53 02/19/23 19:32 Sodium Bicarbonate 8.4% 50 Meq/50 Ml Syringe IVPUSH 02/19/23 18:54 50 meq ONCE ONE Administration Sodium Zirconium Cyclosilicate 10 gm 02/19/23 18:53 02/19/23 19:32 Sodium Zirconium Cyclosilicate 10 Gm Powd.Pack PO 02/19/23 18:54 10 gm ONCE ONE Administration Tramadol HCl 50 mg 02/19/23 16:43 02/19/23 17:16 Tramadol Hcl 50 Mg Tablet PO 02/19/23 16:44 50 mg ONCE ONE Administration Medical Decision Making Medical Decision Making MDM Narrative: Patient is a 60-year-old female with past medical history of L1 compression fracture, GERD, anxiety, depression, IBS, hypertension who presents emergency department for evaluation of left lower extremity pain after mechanical fall. She is overall well-appearing, nontoxic, and afebrile. She has no focal neurological deficits upon examination. Low suspicion for ICH/ST H after, she is not on any anticoagulants. She has no endorsed neck pain or midline cervical spine tenderness, step-offs, deformities. Will obtain XR imaging to evaluate for fracture/dislocation. Will obtain basic labs, a she may likely require case management/physical therapy evaluation for safe disposition. Differential Diagnosis Differential Diagnoses: The differential diagnosis associated with the presentation includes (As noted above) Admission/Observation Consideration of admission/observation: Escalation of care including admission/observation considered (Admitted as per course narrative) Consult Healthcare Provider Management of the patient was discussed with: Hospitalist (As per course narrative) Lab Data [facility] Lab Attestation statement: I reviewed the patient's lab results. (As per course narrative) 02/19/23 17:09 02/19/23 17:09 Labs: Lab Results 02/19/23 02/19/23 02/19/23 Range/Units 17:09 17:09 19:11 WBC 6.4 (4.8-10.8) X10*3/uL RBC 3.90 L (4.20-5.50) X10*6/uL Hgb 13.9 (12.0-16.0) g/dl Hct 37.6 (37.0-47.0) % MCV 96.4 (80.0-98.0) fL MCH 35.6 H (27.0-33.0) pg MCHC 37.0 H (31.0-35.0) g/dl RDW 13.2 (11.0-16.0) % Plt Count 150 L (160-400) X10*3/uL MPV 8.6 L (9.4-12.3) fL Immature Gran % (Auto) 0.3 (0.0-0.4) % Neut % (Auto) 79.8 H (45-73) % Lymph % (Auto) 13.2 L (20-40) % [place] % (Auto) 6.4 (2-11) % Eos % (Auto) 0.0 (0-4) % Baso % (Auto) 0.3 (0-2) % Lymph # (Auto) 0.9 L (1.2-4.9) X10*3/uL [place] # (Auto) 0.4 (0.1-1.2) X10*3/uL Eos # (Auto) 0.0 (0.0-0.4) X10*3/uL Baso # (Auto) 0.0 (0.0-0.2) X10*3/uL Abs Immat Gran (auto) 0.02 (0.00-0.03) X10*3/uL Absolute Neuts (auto) 5.1 (2.0-8.3) x10*3/uL Absolute Nucleated RBC 0.000 (0.0-0.012) X10*3/uL Nucleated RBC % (auto) 0.0 (0.0-0.2) /100WBC Sodium 127 L (135-145) mmol/L Potassium 6.0 H* D (3.3-5.1) mmol/L Chloride 88 L (96-108) mmol/L Carbon Dioxide 25 (22-29) mmol/L Anion Gap 20 (12-20) BUN 13 (9-16) mg/dL Creatinine 0.71 (0.5-1.4) mg/dL Estim Creat Clear Calc 50.0 Estimated GFR > 60 Random Glucose 92 (60-115) mg/dL Osmolality 285 (281-305) mosm/kg Calcium 10.3 H D (8.4-10.2) mg/dL Total Bilirubin 0.5 (0.0-1.0) mg/dL AST 29 (5-31) U/L ALT 13 (0-31) U/L Alkaline Phosphatase 113 (39-117) U/L Total Creatine Kinase 134 (26-140) U/L Total Protein 6.9 (6.5-8.0) g/dL Albumin 3.9 (3.5-5.0) g/dL Urine Color Urine Appearance Urine pH (5.0-9.0) Ur Specific [place] (1.005-1.025) Urine Protein (Neg-Trace) mg/dL Urine Glucose (UA) (Negative) mg/dL Urine Ketones (Negative) mg/dL Urine Blood (Negative) Urine Nitrite (Negative) Ur Leukocyte Esterase (Negative) Urine RBC (0-2) /HPF Urine WBC (0-5) /HPF Ur Squamous Epith Cells (0-2) /HPF Urine Bacteria (None Seen) Hyaline Casts (0-2) /LPF Urine Osmolality (373-1093) mosm/kg Ur Random Sodium mmol/L 02/19/23 02/19/23 02/19/23 Range/Units 19:11 19:11 19:11 WBC (4.8-10.8) X10*3/uL RBC (4.20-5.50) X10*6/uL Hgb (12.0-16.0) g/dl Hct (37.0-47.0) % MCV (80.0-98.0) fL MCH (27.0-33.0) pg MCHC (31.0-35.0) g/dl RDW (11.0-16.0) % Plt Count (160-400) X10*3/uL MPV (9.4-12.3) fL Immature Gran % (Auto) (0.0-0.4) % Neut % (Auto) (45-73) % Lymph % (Auto) (20-40) % [place] % (Auto) (2-11) % Eos % (Auto) (0-4) % Baso % (Auto) (0-2) % Lymph # (Auto) (1.2-4.9) X10*3/uL [place] # (Auto) (0.1-1.2) X10*3/uL Eos # (Auto) (0.0-0.4) X10*3/uL Baso # (Auto) (0.0-0.2) X10*3/uL Abs Immat Gran (auto) (0.00-0.03) X10*3/uL Absolute Neuts (auto) (2.0-8.3) x10*3/uL Absolute Nucleated RBC (0.0-0.012) X10*3/uL Nucleated RBC % (auto) (0.0-0.2) /100WBC Sodium (135-145) mmol/L Potassium (3.3-5.1) mmol/L Chloride (96-108) mmol/L Carbon Dioxide (22-29) mmol/L Anion Gap (12-20) BUN (9-16) mg/dL Creatinine (0.5-1.4) mg/dL Estim Creat Clear Calc Estimated GFR Random Glucose (60-115) mg/dL Osmolality (281-305) mosm/kg Calcium (8.4-10.2) mg/dL Total Bilirubin (0.0-1.0) mg/dL AST (5-31) U/L ALT (0-31) U/L Alkaline Phosphatase (39-117) U/L Total Creatine Kinase (26-140) U/L Total Protein (6.5-8.0) g/dL Albumin (3.5-5.0) g/dL Urine Color Yellow Urine Appearance Clear Urine pH 5.5 (5.0-9.0) Ur Specific [place] 1.010 (1.005-1.025) Urine Protein 100 (2+) H (Neg-Trace) mg/dL Urine Glucose (UA) Negative (Negative) mg/dL Urine Ketones Trace (Negative) mg/dL Urine Blood Moderate (2+) H (Negative) Urine Nitrite Positive H (Negative) Ur Leukocyte Esterase Negative (Negative) Urine RBC 0-2 (0-2) /HPF Urine WBC 0-5 (0-5) /HPF Ur Squamous Epith Cells 6-10 (0-2) /HPF Urine Bacteria 4+ (None Seen) Hyaline Casts 0-2 (0-2) /LPF Urine Osmolality 317 L (373-1093) mosm/kg Ur Random Sodium 53.0 mmol/L 02/19/23 Range/Units 21:43 WBC (4.8-10.8) X10*3/uL RBC (4.20-5.50) X10*6/uL Hgb (12.0-16.0) g/dl Hct (37.0-47.0) % MCV (80.0-98.0) fL MCH (27.0-33.0) pg MCHC (31.0-35.0) g/dl RDW (11.0-16.0) % Plt Count (160-400) X10*3/uL MPV (9.4-12.3) fL Immature Gran % (Auto) (0.0-0.4) % Neut % (Auto) (45-73) % Lymph % (Auto) (20-40) % [place] % (Auto) (2-11) % Eos % (Auto) (0-4) % Baso % (Auto) (0-2) % Lymph # (Auto) (1.2-4.9) X10*3/uL [place] # (Auto) (0.1-1.2) X10*3/uL Eos # (Auto) (0.0-0.4) X10*3/uL Baso # (Auto) (0.0-0.2) X10*3/uL Abs Immat Gran (auto) (0.00-0.03) X10*3/uL Absolute Neuts (auto) (2.0-8.3) x10*3/uL Absolute Nucleated RBC (0.0-0.012) X10*3/uL Nucleated RBC % (auto) (0.0-0.2) /100WBC Sodium 131 L (135-145) mmol/L Potassium 4.3 D (3.3-5.1) mmol/L Chloride 93 L (96-108) mmol/L Carbon Dioxide 26 (22-29) mmol/L Anion Gap 16 (12-20) BUN 10 (9-16) mg/dL Creatinine 0.59 (0.5-1.4) mg/dL Estim Creat Clear Calc 60.2 Estimated GFR > 60 Random Glucose 76 (60-115) mg/dL Osmolality (281-305) mosm/kg Calcium 9.5 D (8.4-10.2) mg/dL Total Bilirubin (0.0-1.0) mg/dL AST (5-31) U/L ALT (0-31) U/L Alkaline Phosphatase (39-117) U/L Total Creatine Kinase (26-140) U/L Total Protein (6.5-8.0) g/dL Albumin (3.5-5.0) g/dL Urine Color Urine Appearance Urine pH (5.0-9.0) Ur Specific [place] (1.005-1.025) Urine Protein (Neg-Trace) mg/dL Urine Glucose (UA) (Negative) mg/dL Urine Ketones (Negative) mg/dL Urine Blood (Negative) Urine Nitrite (Negative) Ur Leukocyte Esterase (Negative) Urine RBC (0-2) /HPF Urine WBC (0-5) /HPF Ur Squamous Epith Cells (0-2) /HPF Urine Bacteria (None Seen) Hyaline Casts (0-2) /LPF Urine Osmolality (373-1093) mosm/kg Ur Random Sodium mmol/L Independent Interpretation I performed an independent interpretation of an: EKG (See course narrative) Radiology Impression Discussion of test interpretation with radiology: I have reviewed the radiologist's reading. Radiologist Impression: XR/XR hip LT min 2V IMPRESSION: 1.? Decreased bone normal density which decreases sensitivity for fracture evaluation. 2.? No acute visible fracture or dislocation. 3.? Increased valgus angulation of the bilateral femoral acetabular joints. 4.? Degenerative arthropathy of the bilateral femoral acetabular joints. 5.? Degenerative changes of the lower lumbar and lumbosacral spine. XR/XR knee LT 4V IMPRESSION: 1.? Decreased bone normal density which decreases sensitivity for fracture evaluation. 2.? No acute visible fracture or dislocation. 3.? Multicompartment arthritic changes with chondrocalcinosis along the medial and lateral tibial plateau. XR/XR foot LT min 3V IMPRESSION: 1.? Decreased bone normal density which decreases sensitivity for fracture evaluation. 2.? No acute visible fracture or dislocation.? Independent Historian Clinical information obtained from an independent historian. History obtained from or confirmed by: EMS External Record Review External record reviewed: Outpatient record and Prior outpatient labs Critical Care Time Critical Care Time Critical Care Time: Yes Total Critical Care Time: 45 Attestation: I personally attest to this critical care time spent taking care of the patient exclusive of all other billable procedures was approximately 45 minutes including initial evaluation of patient, ordering tests, x-ray interpretation, EKG interpretation, medical consultation, documentation, re-evaluation. Discharge Plan Discharge Clinical Impression: Acute respiratory failure with hypoxia Femoral neck fracture Qualifiers: Encounter type: initial encounter Fracture type: closed Laterality: left Q ualified Code(s): S72.002A - Fracture of unspecified part of neck of left femur, initial encounter for closed fracture Patient Disposition: Admitted As Inpatient
[2023-02-19 17:16] LABS: MANUAL DIFF FLAG NO
[2023-02-19] MEDS: traMADoL HCL 50 MG TABLET PO (17:16)
[2023-02-19 17:21] LABS: Basophils Percent Auto 0.3 % (0-2); Hematocrit 37.6 % (37.0-47.0); Hemoglobin 13.9 g/dl (12.0-16.0); Imm Gran Abs Auto 0.02 X10*3/uL (0.00-0.03); Imm Gran Pct Auto 0.3 % (0.0-0.4); Lymphocytes Absolute Auto 0.9 X10*3/uL (1.2-4.9); Lymphocytes Percent Auto 13.2 % (20-40); Mean Corpuscular Hemoglobin 35.6 pg (27.0-33.0); Mean Corpuscular Volume 96.4 fL (80.0-98.0); Mean Platelet Volume 8.6 fL (9.4-12.3); Monocytes Absolute Auto 0.4 X10*3/uL (0.1-1.2); Monocytes Percent Auto 6.4 % (2-11); Neutrophils Absolute Auto 5.1 x10*3/uL (2.0-8.3); Neutrophils Percent Auto 79.8 % (45-73); Platelet Count 150 X10*3/uL (160-400); Red Cell Distribution Width 13.2 % (11.0-16.0); White Blood Count 6.4 X10*3/uL (4.8-10.8)
[2023-02-19 18:21] LABS: Alanine Aminotransferase 13 U/L (0-31); Albumin Level 3.9 g/dL (3.5-5.0); Alkaline Phosphatase 113 U/L (39-117); Anion Gap 20 (12-20); Aspartate Amino Transferase 29 U/L (5-31); Bilirubin Total 0.5 mg/dL (0.0-1.0); Blood Urea Nitrogen 13 mg/dL (9-16); Calcium 10.3 mg/dL (8.4-10.2); Carbon Dioxide 25 mmol/L (22-29); Chloride 88 mmol/L (96-108); Estimated Glomerular Filt Rate > 60; Glucose Random 92 mg/dL (60-115); Sodium 127 mmol/L (135-145); Total Protein 6.9 g/dL (6.5-8.0)
--- NOTE | 2023-02-19 18:27 | ECG_ITS ---
Test Reason : LOW SODIUM Blood Pressure : / mmHG Vent. 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
[2023-02-19 19:21] LABS: Appearance Urine Clear; Color Urine Yellow; Glucose Urine UA Negative (Negative); Leukocyte Esterase Urine Negative (Negative); Nitrite Urine Positive (Negative); PH 5.5 (5.0-9.0); UMIC TRIGGER UACC YES; Urine Blood Moderate (2+) (Negative); Urine Ketones Trace mg/dL (Negative); Urine Protein 100 (2+) mg/dL (Neg-Trace)
[2023-02-19] MEDS: 0.9 % Sodium Chloride 1,000 ML 999 ML IV ×2 (19:31→21:08)
[2023-02-19] MEDS: Calcium Gluconate/NaCl,Iso-Osm 2 GM/100 ML PLAST..BAG IV (19:32)
[2023-02-19] MEDS: Sodium Bicarbonate 8.4% 50 MEQ/50 ML SYRINGE IVPUSH (19:32)
[2023-02-19] MEDS: Sodium Zirconium Cyclosilicate 10 GM POWD.PACK PO (19:32)
[2023-02-19 19:58] LABS: Osmolality, Serum 285 mosm/kg (281-305)
[2023-02-19 20:00] VITALS: PULSE 86; RESP 16; TEMP 36.8; O2SAT 93
[2023-02-19 20:02] LABS: Osmolality Urine 317 mosm/kg (373-1093)
[2023-02-19 20:51] LABS: Bacteria Urine 4+ (None Seen); Hyaline Casts Urine 0-2 /LPF (0-2); RBC Urine 0-2 /HPF (0-2); UACC Culture Trigger YES; WBC Urine 0-5 /HPF (0-5)
--- NOTE | 2023-02-19 21:16 | PHA.MEDREC ---
Pharmacy Consult ? Medication Reconciliation Pharmacy has completed the medication reconciliation. Med rec completed by claim history and medical record reports. Jolene HatchD
[2023-02-19] MEDS: oxyCODONE HCl Immed Release 5 MG TABLET PO (21:21)
--- NOTE | 2023-02-19 21:26 | PC.NURSE ---
Pt IV in left forearmcame out, a new 20g IV was placed in the left forearm. Per hospitalist, foly catheter inserted, initial output 300mL clear, light yellow urine with no odor. Pt tolerated insertion well. Pt cleaned, given new sheets and blankets, and is now resting comfortably in bed, waiting bed assignment.
[2023-02-19] MEDS: cefTRIAXone sodium 1 GM in 0.9 % Sodium Chloride 50 ML IV (21:30)
--- NOTE | 2023-02-19 21:45 | PM.IMHP ---
History of Present Illness Date of Service: 02[facility]19/23 [facility] Family History Father Lung cancer Brain cancer Mother CVD (cardiovascular disease) Breast cancer Son In good health Brother In good health Surgical History History of cervical discectomy Social History Housing: House Alcohol intake: current Alcohol intake frequency: 0-2 drinks per day Patient Tobacco Use Status: Current everyday Tobacco user Cigarettes Per Day: 10 Smoked in Last 30 Days: No e-Cigarette/Vaping Use: Never Used Use of substances other than those prescribed or required for medical reasons: No Advance Directives: Yes Advance Directives on File: Yes Advance Directives Date on File: 10/21/22 service: No Current occupational status: retired Cognitive needs: No Hearing needs: No Vision needs: No Meds Allergies Allergy/AdvReac Type Severity Reaction Status Date / Time cat dander Allergy Unknown Unknown Verified 12/20/22 09:54 morphine Allergy Unknown unknown Verified 12/20/22 09:54 seasonal allergies Allergy Unknown Unknown Uncoded 10/21/22 10:32 Active Medications: Current Medications Ceftriaxone Sodium 1 gm/ (Sodium Chloride) 50 mls @ 100 mls/hr IV ONCE ONE Stop: 02/19/23 21:48 Last Admin: 02/19/23 21:30 Dose: 100 mls/hr Home Medications Medication Instructions Recorded Confirmed Last Taken Type albuterol sulfate 90 mcg/actuation 1 puff inhalation QID PRN 10/21/22 02/19/23 Unknown History aerosol inhaler Shortness Of Breath fluticasone propionate 50 1 spray intranasal BID PRN 10/21/22 02/19/23 Unknown History mcg/actuation nasal Allergic Symptoms spray,suspension (Flonase Allergy Relief) multivitamin 1 tab PO DAILY 10/21/22 02/19/23 10/21/22 History omeprazole 40 mg capsule,delayed 40 mg PO DAILY@0630 10/21/22 02/19/23 10/21/22 History release Physical Exam Vital Signs and Narrative: Vital Signs: Last Vital Signs Temp 98.2 F 02/19/23 20:00 Pulse 86 02/19/23 20:00 Resp 16 02/19/23 20:00 BP 186/97 H 02/19/23 16:25 Pulse Ox 93 02/19/23 20:00 O2 Del Method Room Air 02/19/23 20:00 BMI result Body Mass Index 16.9 Results Labs 02/19/23 17:09 02/19/23 17:09 Labs: Laboratory Results - last 24 hr 02/19/23 02/19/23 02/19/23 17:09 17:09 19:11 MCV 96.4 MCH 35.6 H MCHC 37.0 H RDW 13.2 Plt Count 150 L MPV 8.6 L Immature Gran % (Auto) 0.3 Neut % (Auto) 79.8 H Lymph % (Auto) 13.2 L [place] % (Auto) 6.4 Eos % (Auto) 0.0 Baso % (Auto) 0.3 Lymph # (Auto) 0.9 L [place] # (Auto) 0.4 Eos # (Auto) 0.0 Baso # (Auto) 0.0 Abs Immat Gran (auto) 0.02 Absolute Neuts (auto) 5.1 Absolute Nucleated RBC 0.000 Nucleated RBC % (auto) 0.0 Anion Gap 20 Estim Creat Clear Calc 50.0 Estimated GFR > 60 Random Glucose 92 Osmolality 285 Calcium 10.3 H D Total Bilirubin 0.5 AST 29 ALT 13 Alkaline Phosphatase 113 Total Creatine Kinase 134 Total Protein 6.9 Albumin 3.9 Urine Color Urine Appearance Urine pH Ur Specific [place] Urine Protein Urine Glucose (UA) Urine Ketones Urine Blood Urine Nitrite Ur Leukocyte Esterase Urine RBC Urine WBC Ur Squamous Epith Cells Urine Bacteria Hyaline Casts Urine Osmolality Ur Random Sodium 02/19/23 02/19/23 02/19/23 19:11 19:11 19:11 MCV MCH MCHC RDW Plt Count MPV Immature Gran % (Auto) Neut % (Auto) Lymph % (Auto) [place] % (Auto) Eos % (Auto) Baso % (Auto) Lymph # (Auto) [place] # (Auto) Eos # (Auto) Baso # (Auto) Abs Immat Gran (auto) Absolute Neuts (auto) Absolute Nucleated RBC Nucleated RBC % (auto) Anion Gap Estim Creat Clear Calc Estimated GFR Random Glucose Osmolality Calcium Total Bilirubin AST ALT Alkaline Phosphatase Total Creatine Kinase Total Protein Albumin Urine Color Yellow Urine Appearance Clear Urine pH 5.5 Ur Specific [place] 1.010 Urine Protein 100 (2+) H Urine Glucose (UA) Negative Urine Ketones Trace Urine Blood Moderate (2+) H Urine Nitrite Positive H Ur Leukocyte Esterase Negative Urine RBC 0-2 Urine WBC 0-5 Ur Squamous Epith Cells 6-10 Urine Bacteria 4+ Hyaline Casts 0-2 Urine Osmolality 317 L Ur Random Sodium 53.0 Imaging Radiologist's Impressions: Impressions Foot X-Ray 02/19/23 16:59 IMPRESSION: 1. Decreased bone normal density which decreases sensitivity for fracture evaluation. 2. No acute visible fracture or dislocation. Hip X-Ray 02/19/23 16:59 IMPRESSION: 1. Decreased bone normal density which decreases sensitivity for fracture evaluation. 2. No acute visible fracture or dislocation. 3. Increased valgus angulation of the bilateral femoral acetabular joints. 4. Degenerative arthropathy of the bilateral femoral acetabular joints. 5. Degenerative changes of the lower lumbar and lumbosacral spine. Knee X-Ray 02/19/23 16:59 IMPRESSION: 1. Decreased bone normal density which decreases sensitivity for fracture evaluation. 2. No acute visible fracture or dislocation. 3. Multicompartment arthritic changes with chondrocalcinosis along the medial and lateral tibial plateau. Assessment and Plan Time Spent With Patient Time: Total time managing care of this patient today ____ minutes.
[2023-02-19 22:03] LABS: Anion Gap 16 (12-20); Blood Urea Nitrogen 10 mg/dL (9-16); Calcium 9.5 mg/dL (8.4-10.2); Carbon Dioxide 26 mmol/L (22-29); Chloride 93 mmol/L (96-108); Creatinine Clr Calc Pharmacy 60.2; Estimated Glomerular Filt Rate > 60; Glucose Random 76 mg/dL (60-115); Potassium 4.3 mmol/L (3.3-5.1); Sodium 131 mmol/L (135-145)
[2023-02-20] VITALS (17 sets, daily range): BP systolic 92–186; BP diastolic 54–104; PULSE 68–95; RESP 13–20; TEMP 36.1–37.1; O2SAT 88–99
--- NOTE | 2023-02-20 00:27 | PC.NURSE ---
Pt O2 noted to be low, into the 80's. PA made aware,at the bedside. Pt repositioned and a new probe used, sat remained low. Pt placed on 2 LPM O2 via NC, O2 improved to 90's.
[2023-02-20] MEDS: fentaNYL citrate/PF 100 MCG/2 ML VIAL 25 MCG IVPUSH (01:05)
[2023-02-20] MEDS: iohexoL 350 MG/ML 100 ML INFUS..BTL 65 ML IV (01:35)
--- NOTE | 2023-02-20 02:12 | P.HPHOSP_ITS ---
History of Present Illness Date of Service: 02/20/23 Chief Complaint: leg pain 60-year-old female with past medical history of HTN, depression, comes into the hospital after a fall 2 days ago subsequently developing left leg pain. Patient reports that she chronically has balance issues, as a result has had multiple falls, mostly mechanical, has had chronic dizziness that has been worked up in the past, but no loss of consciousness, no head injury, denies having any palpitations or chest pain. Patient reports that she has history of severe back pain, with lumbar region compression fractures which cause her to also have difficulty walking as a result she has frequent falls. Patient reports that she had a fall walking in her house about 2 days ago where her legs gave out, she denies loss of consciousness, reports that ever since she started having severe left leg pain. She has been dragging herself around the house without being able to walk on her left leg. Denies any fever no chills, no chest pain, no shortness of breath, no abdominal pain, has history of a BS and reports that recently had multiple episodes of diarrhea but have now resolved. She reports good water intake, poor appetite, denies any urinary dysuria or urgency but has frequency, reports no lower extremity edema. Denies any cough, no chest pain, no shortness of breath. On arrival to the ED patient hemodynamically stable, but noted to be hypoxic while in the ED desatting to 87%. No tachycardia or tachypnea Labs are significant for WBC of 6.4, UA that is positive for nitrites, WBC, bacteria initial x-ray of the left leg showed no fracture, given this severe pain and inability to move her leg we obtained a femoral CT which showed minimally displaced left femoral neck fracture as well as osteopenia patient will be admitted for further management Review of Systems Review of Systems: Yes all other systems are reviewed and are negative [facility] Medical History Current smoker JANAY (generalized anxiety disorder) GERD (gastroesophageal reflux disease) HTN (hypertension) IBS (irritable bowel syndrome) MDD (major depressive disorder) Pulmonary nodule Family History Father Lung cancer Brain cancer Mother CVD (cardiovascular disease) Breast cancer Son In good health Brother In good health Surgical History History of cervical discectomy Social History Housing: House Alcohol intake: current Alcohol intake frequency: 0-2 drinks per day Patient Tobacco Use Status: Never used Tobacco Cigarettes Per Day: 10 Smoked in Last 30 Days: No e-Cigarette/Vaping Use: Never Used Use of substances other than those prescribed or required for medical reasons: No Advance Directives: Yes Advance Directives on File: Yes Advance Directives Date on File: 10/21/22 service: No Current occupational status: retired Cognitive needs: No Hearing needs: No Vision needs: No Meds Allergies Allergy/AdvReac Type Severity Reaction Status Date / Time cat dander Allergy Unknown Unknown Verified 12/20/22 09:54 morphine Allergy Unknown unknown Verified 12/20/22 09:54 seasonal allergies Allergy Unknown Unknown Uncoded 10/21/22 10:32 Active Medications: Current Medications Acetaminophen (Acetaminophen 325 Mg Tablet) 650 mg PO Q6H PRN PRN Reason: Pain, Mild (Pain Scale 1-3) Acetaminophen/Codeine Phosphate (Acetaminophen With Codeine # 3 Tablet) 1 tab PO Q8H PRN PRN Reason: Pain, Moderate(Pain Scale 4-6) Albuterol Sulfate (Albuterol Sulfate 90 Mcg 8 Gm Inhaler) 1 puff INHALE QID PRN PRN Reason: Shortness Of Breath Docusate Sodium (Docusate Sodium 100 Mg Capsule) 100 mg PO DAILY PRN PRN Reason: Constipation Fluticasone Propionate (Fluticasone Propionate Nasal 16 Gm [place]) 1 spray NOSTRIL-B BID PRN PRN Reason: Allergic Symptoms Lisinopril (Lisinopril 10 Mg Tablet) 10 mg PO DAILY [facility]; Protocol Metoprolol Succinate (Metoprolol Succinate Er 25 Mg Tab.Er.24h) 25 mg PO DAILY [facility]; Protocol Montelukast Sodium (Montelukast Sodium 10 Mg Tablet) 10 mg PO DAILY [facility] Multivitamins/Vitamin C (Multivitamin Tablet) 1 tab PO DAILY [facility] Omeprazole (Omeprazole 40 Mg Capsule.Dr) 40 mg PO DAILY@0630 [facility] Ondansetron HCl (Ondansetron Hcl 4 Mg/2 Ml Vial) 4 mg IVPUSH Q8H PRN PRN Reason: Nausea and Vomiting Oxycodone HCl (Oxycodone Hcl Immed Release 5 Mg Tablet) 5 mg PO Q4H PRN PRN Reason: Pain, Severe (Pain Scale 7-10) Sodium Chloride (0.9 % Sodium Chloride Flush 3 Ml Syringe) 3 ml IVFLUSH QSHIFT [facility] Home Medications Medication Instructions Recorded Confirmed Last Taken Type albuterol sulfate 90 mcg/actuation 1 puff inhalation QID PRN 10/21/22 02/19/23 Unknown History aerosol inhaler Shortness Of Breath fluticasone propionate 50 1 spray intranasal BID PRN 10/21/22 02/19/23 Unknown History mcg/actuation nasal Allergic Symptoms spray,suspension (Flonase Allergy Relief) multivitamin 1 tab PO DAILY 10/21/22 02/19/23 10/21/22 History omeprazole 40 mg capsule,delayed 40 mg PO DAILY@0630 10/21/22 02/19/23 10/21/22 History release Physical Exam Vital Signs and Narrative: Vital Signs: Last Vital Signs Temp 98.7 F 02/20/23 00:20 Pulse 92 02/20/23 00:26 Resp 16 02/20/23 00:26 BP 186/104 H 02/20/23 00:20 Pulse Ox 88 L 02/20/23 00:26 O2 Del Method Room Air 02/20/23 00:26 O2 Flow Rate 2 02/20/23 00:20 BMI result Body Mass Index 16.9 Const: General: cooperative and no acute distress Orientation/consciousness: patient oriented x3 Eyes: General: appearance normal, both eyes and all related structures Resp: Effort & Inspection: normal respiratory effort Auscultation: clear to auscultation bilaterally Cardio: Rate: regular rate Rhythm: regular rhythm GI: Palpation (GI): Soft to palpation Auscultation: normal bowel sounds Skin: General skin exam: no rashes or lesions noted Neuro: General: patient oriented x3 Cognition (Neuro): normal cognition Extrem: Other: left leg is flexed at the knee minimal movement causes significant pain General: Yes normal to inspection and Yes no pedal edema Results Labs 02/19/23 17:09 02/19/23 21:43 Labs: Laboratory Results - last 24 hr 02/19/23 02/19/23 02/19/23 17:09 17:09 19:11 MCV 96.4 MCH 35.6 H MCHC 37.0 H RDW 13.2 Plt Count 150 L MPV 8.6 L Immature Gran % (Auto) 0.3 Neut % (Auto) 79.8 H Lymph % (Auto) 13.2 L [place] % (Auto) 6.4 Eos % (Auto) 0.0 Baso % (Auto) 0.3 Lymph # (Auto) 0.9 L [place] # (Auto) 0.4 Eos # (Auto) 0.0 Baso # (Auto) 0.0 Abs Immat Gran (auto) 0.02 Absolute Neuts (auto) 5.1 Absolute Nucleated RBC 0.000 Nucleated RBC % (auto) 0.0 Anion Gap 20 Estim Creat Clear Calc 50.0 Estimated GFR > 60 Random Glucose 92 Osmolality 285 Calcium 10.3 H D Total Bilirubin 0.5 AST 29 ALT 13 Alkaline Phosphatase 113 Total Creatine Kinase 134 Total Protein 6.9 Albumin 3.9 Urine Color Urine Appearance Urine pH Ur Specific [place] Urine Protein Urine Glucose (UA) Urine Ketones Urine Blood Urine Nitrite Ur Leukocyte Esterase Urine RBC Urine WBC Ur Squamous Epith Cells Urine Bacteria Hyaline Casts Urine Osmolality Ur Random Sodium 02/19/23 02/19/23 02/19/23 19:11 19:11 19:11 MCV MCH MCHC RDW Plt Count MPV Immature Gran % (Auto) Neut % (Auto) Lymph % (Auto) [place] % (Auto) Eos % (Auto) Baso % (Auto) Lymph # (Auto) [place] # (Auto) Eos # (Auto) Baso # (Auto) Abs Immat Gran (auto) Absolute Neuts (auto) Absolute Nucleated RBC Nucleated RBC % (auto) Anion Gap Estim Creat Clear Calc Estimated GFR Random Glucose Osmolality Calcium Total Bilirubin AST ALT Alkaline Phosphatase Total Creatine Kinase Total Protein Albumin Urine Color Yellow Urine Appearance Clear Urine pH 5.5 Ur Specific [place] 1.010 Urine Protein 100 (2+) H Urine Glucose (UA) Negative Urine Ketones Trace Urine Blood Moderate (2+) H Urine Nitrite Positive H Ur Leukocyte Esterase Negative Urine RBC 0-2 Urine WBC 0-5 Ur Squamous Epith Cells 6-10 Urine Bacteria 4+ Hyaline Casts 0-2 Urine Osmolality 317 L Ur Random Sodium 53.0 02/19/23 21:43 MCV MCH MCHC RDW Plt Count MPV Immature Gran % (Auto) Neut % (Auto) Lymph % (Auto) [place] % (Auto) Eos % (Auto) Baso % (Auto) Lymph # (Auto) [place] # (Auto) Eos # (Auto) Baso # (Auto) Abs Immat Gran (auto) Absolute Neuts (auto) Absolute Nucleated RBC Nucleated RBC % (auto) Anion Gap 16 Estim Creat Clear Calc 60.2 Estimated GFR > 60 Random Glucose 76 Osmolality Calcium 9.5 D Total Bilirubin AST ALT Alkaline Phosphatase Total Creatine Kinase Total Protein Albumin Urine Color Urine Appearance Urine pH Ur Specific [place] Urine Protein Urine Glucose (UA) Urine Ketones Urine Blood Urine Nitrite Ur Leukocyte Esterase Urine RBC Urine WBC Ur Squamous Epith Cells Urine Bacteria Hyaline Casts Urine Osmolality Ur Random Sodium Imaging Radiologist's Impressions: Impressions Foot X-Ray 02/19/23 16:59 IMPRESSION: 1. Decreased bone normal density which decreases sensitivity for fracture evaluation. 2. No acute visible fracture or dislocation. Hip X-Ray 02/19/23 16:59 IMPRESSION: 1. Decreased bone normal density which decreases sensitivity for fracture evaluation. 2. No acute visible fracture or dislocation. 3. Increased valgus angulation of the bilateral femoral acetabular joints. 4. Degenerative arthropathy of the bilateral femoral acetabular joints. 5. Degenerative changes of the lower lumbar and lumbosacral spine. Knee X-Ray 02/19/23 16:59 IMPRESSION: 1. Decreased bone normal density which decreases sensitivity for fracture evaluation. 2. No acute visible fracture or dislocation. 3. Multicompartment arthritic changes with chondrocalcinosis along the medial and lateral tibial plateau. Femur CT 02/19/23 22:33 IMPRESSION: 1. Minimally displaced left femoral neck fracture. 2. Osteopenia. Assessment and Plan (1) Femoral neck fracture: Qualifiers: Encounter type: initial encounter Fracture type: closed Laterality: left Qualified Code(s): S72.002A - Fracture of unspecified part of neck of left femur, initial encounter for closed fracture Status: Acute (2) Acute respiratory failure with hypoxia: Status: Acute (3) Hyperkalemia: Status: Acute (4) Hyponatremia: Status: Acute Plan 68-year-old female active smoker with past medical history of hypertension, degenerative disc disease, chronic back pain comes into the hospital after a fall and having left leg pain found to have fracture # left femoral neck fracture - will keep NPO - orthopedics consulted - pain management # acute hypoxic respiratory failure - unclear etiology, likely underlying COPD S patient is an active and a lifelong smoker - no wheezing, no cough, no dyspnea - p.r.n. oxygen as needed - CT angiogram pending given bone fracture - monitor respiratory status # hyperkalemia - resolved - follow BMP # hyponatremia - mild - resolved - no neurological deficits - follow BMP # GERD - continue omeprazole # history of COPD - continue home inhalers # hypertension - stable - continue antihypertensives DVT prophylaxis: Lovenox Given patient's need for further management of the femoral neck fracture with likely surgical intervention patient require minimum 2 nights inpatient hospital stay management monitoring Time Spent With Patient Time: Total time managing care of this patient today ____ minutes. Quality Stroke Does the patient have a stroke diagnosis?: No VTE Prior VTE?: No VTE Risk Level:: Surgical - very high VTE Device Contraindication: N/A - Device Ordered VTE Drug Contraindication: Treatment Not Indicated
[2023-02-20] MEDS: Albuterol/Iprat 2.5/0.5MG 3 ML AMPUL.NEB INHALE (08:08)
[2023-02-20] MEDS: Metoprolol Succinate ER 25 MG TAB.ER.24H PO (08:36)
[2023-02-20] MEDS: Omeprazole 40 MG CAPSULE.DR PO (08:37)
[2023-02-20] MEDS: Montelukast Sodium 10 MG TABLET PO (08:37)
[2023-02-20] MEDS: Multivitamin TABLET 1 TAB PO (08:37)
[2023-02-20] MEDS: Acetaminophen 325 MG TABLET 650 MG PO (08:37)
[2023-02-20] MEDS: oxyCODONE HCl Immed Release 5 MG TABLET PO ×4 (08:38→22:32)
[2023-02-20] MEDS: lisinopriL 10 MG TABLET PO (08:38)
[2023-02-20] MEDS: ceFAZolin Sodium/Dextrose,Iso 2 GM/50 ML PIGGYBACK IV ×2 (08:38→22:32)
[2023-02-20] MEDS: 0.9 % Sodium Chloride Flush 3 ML SYRINGE IVFLUSH ×3 (08:38→22:32)
--- NOTE | 2023-02-20 08:49 | PC.NURSE ---
PT IS A/O X 4 NO SOB/DALLIN NOTED SPEAKS IN FULL SENTENCES. SKIN P/W/D. L HIP FX PER IMAGING REPORT. PT TO BE SEEN BY ORTHO. PT HAS BEEN NPO. AM MEDS WITH SIPS OF WATER. PT STATES LAST MEAL WAS 2 DAYS AGO. PT L HIP IS ROTATED. L FOOT HAS 2 LARGE DARK PURPLE DISCOLORATION NOTED. PT IS AWARE OF PLAN OF CARE.
--- NOTE | 2023-02-20 09:30 | PC.NURSE ---
Linda DAVILA (HAL) AT BEDSIDE, PT IS AWARE OF PLAN OF CARE FOR SURGERY THIS AFTERNOON. PT CONTINUES TO BE NPO.
--- NOTE | 2023-02-20 09:35 | P.CONOP_ITS ---
History of Present Illness HPI Consult date: 02/20/23 Chief complaint: Femoral fx Narrative: 60-year-old female with past medical history of HTN, depression, comes into the hospital after a fall 2 days ago subsequently developing left leg pain. Patient reports that she chronically has balance issues, as a result has had multiple falls, mostly mechanical, has had chronic dizziness that has been worked up in the past, but no loss of consciousness, no head injury, denies having any palpitations or chest pain. She has been dragging herself around the house without being able to walk on her left leg. While in the ED, she was found to be hypoxic , shew was admitted to the medical service for further workup and orthopedics was consulted for further recommendations. xrays and femoral CT obtained which showed minimally displaced left femoral neck fracture as well as osteopenia Review of Systems 2 Review of Systems: per hpi [facility] Past Medical History Medical History Current smoker JANAY (generalized anxiety disorder) GERD (gastroesophageal reflux disease) HTN (hypertension) IBS (irritable bowel syndrome) MDD (major depressive disorder) Pulmonary nodule Family History Family History Father Lung cancer Brain cancer Mother CVD (cardiovascular disease) Breast cancer Son In good health Brother In good health Surgical History Surgical History History of cervical discectomy Social History Social History Housing: House Alcohol intake: current Alcohol intake frequency: 0-2 drinks per day Patient Tobacco Use Status: Never used Tobacco Cigarettes Per Day: 10 Smoked in Last 30 Days: No e-Cigarette/Vaping Use: Never Used Use of substances other than those prescribed or required for medical reasons: No Advance Directives: Yes Advance Directives on File: Yes Advance Directives Date on File: 10/21/22 service: No Current occupational status: retired Cognitive needs: No Hearing needs: No Vision needs: No Meds Allergies Allergy/AdvReac Type Severity Reaction Status Date / Time cat dander Allergy Unknown Unknown Verified 12/20/22 09:54 morphine Allergy Unknown unknown Verified 12/20/22 09:54 seasonal allergies Allergy Unknown Unknown Uncoded 10/21/22 10:32 Active Medications: Current Medications Acetaminophen (Acetaminophen 325 Mg Tablet) 650 mg PO Q6H PRN PRN Reason: Pain, Mild (Pain Scale 1-3) Last Admin: 02/20/23 08:37 Dose: 650 mg Acetaminophen/Codeine Phosphate (Acetaminophen With Codeine # 3 Tablet) 1 tab PO Q8H PRN PRN Reason: Pain, Moderate(Pain Scale 4-6) Albuterol Sulfate (Albuterol Sulfate 90 Mcg 8 Gm Inhaler) 1 puff INHALE QID PRN PRN Reason: Shortness Of Breath Albuterol/Ipratropium (Albuterol/Iprat 2.5/0.5mg 3 Ml Ampul.Neb) 3 ml INHALE RQ6H WHILE AWAKE [facility] Last Admin: 02/20/23 08:08 Dose: 3 ml Docusate Sodium (Docusate Sodium 100 Mg Capsule) 100 mg PO DAILY PRN PRN Reason: Constipation Fluticasone Propionate (Fluticasone Propionate Nasal 16 Gm [place]) 1 spray NOSTRIL-B BID PRN PRN Reason: Allergic Symptoms Ceftriaxone Sodium 1 gm/ (Sodium Chloride) 50 mls @ 100 mls/hr IV Q24H [facility] Lisinopril (Lisinopril 10 Mg Tablet) 10 mg PO DAILY [facility]; Protocol Last Admin: 02/20/23 08:38 Dose: 10 mg Metoprolol Succinate (Metoprolol Succinate Er 25 Mg Tab.Er.24h) 25 mg PO DAILY [facility]; Protocol Last Admin: 02/20/23 08:36 Dose: 25 mg Montelukast Sodium (Montelukast Sodium 10 Mg Tablet) 10 mg PO DAILY [facility] Last Admin: 02/20/23 08:37 Dose: 10 mg Multivitamins/Vitamin C (Multivitamin Tablet) 1 tab PO DAILY [facility] Last Admin: 02/20/23 08:37 Dose: 1 tab Omeprazole (Omeprazole 40 Mg Capsule.Dr) 40 mg PO DAILY@0630 [facility] Last Admin: 02/20/23 08:37 Dose: 40 mg Ondansetron HCl (Ondansetron Hcl 4 Mg/2 Ml Vial) 4 mg IVPUSH Q8H PRN PRN Reason: Nausea and Vomiting Oxycodone HCl (Oxycodone Hcl Immed Release 5 Mg Tablet) 5 mg PO Q4H PRN PRN Reason: Pain, Severe (Pain Scale 7-10) Last Admin: 02/20/23 08:38 Dose: 5 mg Sodium Chloride (0.9 % Sodium Chloride Flush 3 Ml Syringe) 3 ml [facility]FFORMERLY [facility] Last Admin: 02/20/23 08:38 Dose: 3 ml Home Medications Medication Instructions Recorded Confirmed Last Taken Type albuterol sulfate 90 mcg/actuation 1 puff inhalation QID PRN 10/21/22 02/19/23 Unknown History aerosol inhaler Shortness Of Breath fluticasone propionate 50 1 spray intranasal BID PRN 10/21/22 02/19/23 Unknown History mcg/actuation nasal Allergic Symptoms spray,suspension (Flonase Allergy Relief) multivitamin 1 tab PO DAILY 10/21/22 02/19/23 10/21/22 History omeprazole 40 mg capsule,delayed 40 mg PO DAILY@0630 10/21/22 02/19/23 10/21/22 History release Physical Exam 2 Vital Signs: Vital Signs: Last Vital Signs Temp 98.2 F 02/20/23 08:34 Pulse 95 02/20/23 08:34 Resp 13 02/20/23 08:34 BP 126/68 02/20/23 08:34 Pulse Ox 96 02/20/23 08:34 O2 Del Method Nasal Cannula 02/20/23 08:34 O2 Flow Rate 1 02/20/23 08:34 BMI result Body Mass Index 16.9 Const: General: cooperative, healthy appearing, comfortable, no acute distress, well developed and alert Orientation/consciousness: patient oriented x3 HEENT: Head: Yes normal to inspection, Yes normocephalic and Yes atraumatic Eyes: General: appearance normal, both eyes and all related structures Neck: Neck: Yes normal visual inspection and Yes no lymphadenopathy Resp: Effort & Inspection: normal respiratory effort and able to speak in complete sentences Cardio: Rate: regular rate Peripheral pulses: Peripheral pulses 2+ throughout GI: Inspection: Yes normal to inspection Palpation (GI): Soft to palpation Skin: General skin exam: no rashes or lesions noted Neuro: General: patient oriented x3 Extrem: Other: LLE short and ER, she is holding her hip in a flexed position , pain with log roll, she is able to dorsiflex and plantar flex, NVI. Psych: Appearance: grossly normal Mental Status: mental status grossly normal Results Labs 02/20/23 09:16 02/20/23 09:16 Labs: Abnormal lab results 02/19/23 02/19/23 02/19/23 Range/Units 17:09 19:11 21:43 RBC 3.90 L (4.20-5.50) X10*6/uL MCH 35.6 H (27.0-33.0) pg MCHC 37.0 H (31.0-35.0) g/dl Plt Count 150 L (160-400) X10*3/uL MPV 8.6 L (9.4-12.3) fL Neut % (Auto) 79.8 H (45-73) % Lymph % (Auto) 13.2 L (20-40) % Lymph # (Auto) 0.9 L (1.2-4.9) X10*3/uL Sodium 127 L 131 L (135-145) mmol/L Potassium 6.0 H* D (3.3-5.1) mmol/L Chloride 88 L 93 L (96-108) mmol/L Calcium 10.3 H D (8.4-10.2) mg/dL Urine Protein 100 (2+) H (Neg-Trace) mg/dL Urine Blood Moderate (2+) H (Negative) Urine Nitrite Positive H (Negative) Urine Osmolality 317 L (373-1093) mosm/kg H & H 02/19/23 Range/Units 17:09 Hgb 13.9 (12.0-16.0) g/dl Hct 37.6 (37.0-47.0) % All other labs normal. Assessment and Plan (1) Left displaced femoral neck fracture: Status: Acute Plan I discussed the case with Dr Naqvi and explained the extent of the injury to the patient and options available which include surgical intervention. I explained the procedure in detail along with the length of recovery and rehab course. I explained the risk, benefits and alternatives. Risk including, but not limited to infection, blood clots, bleeding, non union or malunion and nerve/tissue damage to surrounding areas. I answered all their questions and with their understanding they have consented to move forward with Operative Fixation of the left hip. The patient will be T&S, med clearance obtained and NPO after midnight. Time Spent With Patient Time: Total time managing care of this patient today ____ minutes. Procedures Date of Service Date of Service: 02/20/23
[2023-02-20 09:38] LABS: MANUAL DIFF FLAG NO
[2023-02-20 09:41] LABS: Basophils Percent Auto 0.3 % (0-2); Eosinophils Absolute Auto 0.2 X10*3/uL (0.0-0.4); Eosinophils Percent Auto 2.7 % (0-4); Hematocrit 38.6 % (37.0-47.0); Hemoglobin 13.9 g/dl (12.0-16.0); Imm Gran Abs Auto 0.02 X10*3/uL (0.00-0.03); Imm Gran Pct Auto 0.3 % (0.0-0.4); Lymphocytes Absolute Auto 0.6 X10*3/uL (1.2-4.9); Lymphocytes Percent Auto 10.9 % (20-40); Mean Platelet Volume 9.7 fL (9.4-12.3); Monocytes Absolute Auto 0.5 X10*3/uL (0.1-1.2); Monocytes Percent Auto 9.2 % (2-11); Neutrophils Absolute Auto 4.5 x10*3/uL (2.0-8.3); Neutrophils Percent Auto 76.6 % (45-73); Platelet Count 149 X10*3/uL (160-400); Red Blood Count 3.86 X10*6/uL (4.20-5.50); Red Cell Distribution Width 13.2 % (11.0-16.0); White Blood Count 5.9 X10*3/uL (4.8-10.8)
[2023-02-20 09:57] LABS: Anion Gap 23 (12-20); Blood Urea Nitrogen 10 mg/dL (9-16); Calcium 9.4 mg/dL (8.4-10.2); Carbon Dioxide 21 mmol/L (22-29); Chloride 91 mmol/L (96-108); Creatinine Clr Calc Pharmacy 47.9; Estimated Glomerular Filt Rate > 60; Glucose Random 89 mg/dL (60-115); Potassium 4.4 mmol/L (3.3-5.1); Sodium 131 mmol/L (135-145)
--- NOTE | 2023-02-20 11:42 | MHC.CM.PN ---
Addendum entered by Lora Palacio 02/20/23 13:02: [facility] IS FOLLOWING AND INDICATED THEY WOULD OFFER THE PT A BED AT ONE OF THEIR FACILITIES PENDING INSURANCE AUTH AND THE PT DOES NOT EXHIBIT SIGNS/SYMPTOMS OF ETOH WITHDRAWAL Addendum entered by Lora Palacio 02/20/23 12:46: CM SPOKE TO PTS [id number], SHEKHAR [phone] WHO REPORTS SHE KNOWS THE PT NEEDS STR AT [place] BUT SHE IS WORRIED PT WILL REFUSE SHE SAYS THE PT LIVES ALONE AND IS VERY STUBBORN, SHE SAYS LAST TIME PT WAS INPT, STR WAS RECOMMENDED AND INSTEAD OF GOING, SHE SIGNED HERSELF OUT AMA. CM EXPLAINED PT WOULD HAVE TO BE ABLE TO COORDINATE LEAVING THE HOSPITAL TO LEAVE AMA AND LIKELY WOULD NOT BE ABLE TO WALK TO THE EXIT. PER DISCUSSION, REFERRALS WERE MADE TO ALL [employer] CONTRACTED SNFS IN THE AREA. PT WILL LIKELY HAVE A PT EVAL TOMORROW [employer] AUTH WILL BE NEEDED AND UNAVAILABLE OVER THE WEEKEND CM WILL REQUEST SNF TO SUBMIT FOR IT TOMORROW IF THERE IS A BED OFFER Original Note: PT REPORTS SHE LIVES ALONE BUT HER BROTHER LIVES UPSTAIRS AND CAN ASSIST PRN PT DENIES USE OF DME OR HOME SERVICES HCP ON [id number] [place], SHEKHAR PEGUERO [phone] PCP: ELLI ALBARRAN IMM DELIVERED DCP PENDING PT EVAL, PT EXPECTED TO NEED STR SHE DOES NOT WANT TO PROVIDE SNF PREFERENCES AT THIS TIME REFERRAL STARTED, NOT SENT
--- NOTE | 2023-02-20 12:29 | PC.NURSE ---
RN TO RN REPORT GIVEN TO VAL VANESSA AWARE OF PLAN OF CARE FOR SURGERY.
[2023-02-20] MEDS: Docusate Sodium 100 MG CAPSULE PO (12:49)
--- NOTE | 2023-02-20 13:07 | PM.EVENT ---
Event Note Date of Service: 02/20/23 Event Note: Seen and evaluated this morning Denies any fever or chills Pain under fair control Orthopedics to do surgery tomorrow Heparin SC On 1L O2 supplement, Use Duonebs Time Spent With Patient Time: Total time managing care of this patient today ____ minutes.
--- NOTE | 2023-02-20 14:35 | HO.ANESPROP2 ---
HPI - Anesthesia Eval Consult details Narrative: 68 yo F admitted with a left femoral neck fracture. Hx of HTN and COPD. Currently on 1-2L NC for hypoxia on admission. Current smoker. [facility] Active Problems Active Problems: All Active Problems (Updated 02/20/23 @ 09:40 by Lee Mehta PA-C) Left displaced femoral neck fracture (Acute) Hyperkalemia (Acute) Hyponatremia (Acute) HTN (hypertension) (Acute) Femoral neck fracture (Acute) Acute respiratory failure with hypoxia (Acute) Postmenopausal (Acute) L1 vertebral fracture (Acute) Swelling of both lower extremities (Acute) Compression fracture of L1 lumbar vertebra (Acute) Elevated erythrocyte sedimentation rate (Acute) Elevated C-reactive protein (CRP) (Acute) Failure to thrive in adult (Acute) Chronic diarrhea (Acute) Elevated fasting blood sugar (Acute) Macrocytic anemia (Acute) Cachexia (Acute) Lumbar spondylosis (Acute) Sinus infection (Acute) Breast cancer screening (Acute) Colon cancer screening (Acute) Low weight (Acute) Tobacco dependence (Acute) Annual physical exam (Acute) Chronic sinusitis (Acute) Allergic asthma (Acute) Allergic rhinitis (Acute) Lumbar spine pain (Acute) Past Medical History Medical History GERD (gastroesophageal reflux disease) JANAY (generalized anxiety disorder) IBS (irritable bowel syndrome) MDD (major depressive disorder) Pulmonary nodule Current smoker HTN (hypertension) Family History Family History Father Lung cancer Brain cancer Mother CVD (cardiovascular disease) Breast cancer Son In good health Brother In good health Family history of problems with anesthesia: No Surgical History Surgical History History of cervical discectomy History of Problems with Anesthesia: No Social History Social History Housing: House Alcohol intake: current Alcohol intake frequency: holidays/special occasions only Patient Tobacco Use Status: Current everyday Tobacco user Tobacco use type: Cigarette Cigarette Packs Per Day: 0.5 Cigarettes Per Day: 10.0 e-Cigarette/Vaping Use: Never Used Advance Directives Date on File: 10/21/22 service: No Current occupational status: retired Cognitive needs: No Hearing needs: No Vision needs: No Meds Allergies Allergy/AdvReac Type Severity Reaction Status Date / Time cat dander Allergy Unknown Unknown Verified 12/20/22 09:54 morphine Allergy Unknown unknown Verified 12/20/22 09:54 seasonal allergies Allergy Unknown Unknown Uncoded 10/21/22 10:32 Active Medications: Current Medications Acetaminophen (Acetaminophen 325 Mg Tablet) 650 mg PO Q6H PRN PRN Reason: Pain, Mild (Pain Scale 1-3) Last Admin: 02/20/23 08:37 Dose: 650 mg Acetaminophen/Codeine Phosphate (Acetaminophen With Codeine # 3 Tablet) 1 tab PO Q8H PRN PRN Reason: Pain, Moderate(Pain Scale 4-6) Albuterol Sulfate (Albuterol Sulfate 90 Mcg 8 Gm Inhaler) 1 puff INHALE QID PRN PRN Reason: Shortness Of Breath Albuterol/Ipratropium (Albuterol/Iprat 2.5/0.5mg 3 Ml Ampul.Neb) 3 ml INHALE RQ6H WHILE AWAKE [facility] Last Admin: 02/20/23 08:08 Dose: 3 ml Docusate Sodium (Docusate Sodium 100 Mg Capsule) 100 mg PO DAILY PRN PRN Reason: Constipation Last Admin: 02/20/23 12:49 Dose: 100 mg Fluticasone Propionate (Fluticasone Propionate Nasal 16 Gm [place]) 1 spray NOSTRIL-B BID PRN PRN Reason: Allergic Symptoms Heparin Sodium (Porcine) (Heparin Sodium,Porcine 5,000 Unit/Ml Vial) 5,000 unit SUBCUT Q8H [facility] Stop: 02/20/23 23:00 Ceftriaxone Sodium 1 gm/ (Sodium Chloride) 50 mls @ 100 mls/hr IV Q24H [facility] Lisinopril (Lisinopril 10 Mg Tablet) 10 mg PO DAILY [facility]; Protocol Last Admin: 02/20/23 08:38 Dose: 10 mg Metoprolol Succinate (Metoprolol Succinate Er 25 Mg Tab.Er.24h) 25 mg PO DAILY [facility]; Protocol Last Admin: 02/20/23 08:36 Dose: 25 mg Montelukast Sodium (Montelukast Sodium 10 Mg Tablet) 10 mg PO DAILY [facility] Last Admin: 02/20/23 08:37 Dose: 10 mg Multivitamins/Vitamin C (Multivitamin Tablet) 1 tab PO DAILY [facility] Last Admin: 02/20/23 08:37 Dose: 1 tab Omeprazole (Omeprazole 40 Mg Capsule.Dr) 40 mg PO DAILY@629 [facility] Last Admin: 02/20/23 08:37 Dose: 40 mg Ondansetron HCl (Ondansetron Hcl 4 Mg/2 Ml Vial) 4 mg IVPUSH Q8H PRN PRN Reason: Nausea and Vomiting Oxycodone HCl (Oxycodone Hcl Immed Release 5 Mg Tablet) 5 mg PO Q4H PRN PRN Reason: Pain, Severe (Pain Scale 7-10) Last Admin: 02/20/23 12:50 Dose: 5 mg Sodium Chloride (0.9 % Sodium Chloride Flush 3 Ml Syringe) 3 ml IVFLUSH [facility] Last Admin: 02/20/23 08:38 Dose: 3 ml Home Medications Medication Instructions Recorded Confirmed Last Taken Type albuterol sulfate 90 mcg/actuation 1 puff inhalation QID PRN 10/21/22 02/19/23 Unknown History aerosol inhaler Shortness Of Breath fluticasone propionate 50 1 spray intranasal BID PRN 10/21/22 02/19/23 Unknown History mcg/actuation nasal Allergic Symptoms spray,suspension (Flonase Allergy Relief) multivitamin 1 tab PO DAILY 10/21/22 02/19/23 10/21/22 History omeprazole 40 mg capsule,delayed 40 mg PO DAILY@0630 10/21/22 02/19/23 10/21/22 History release Exam Exam Date and Time: February 20, 2023 1435 Height,Weight and Vital Signs: Height 5 ft 2 in Weight 41.8 kg Last Vital Signs Temp 98.1 F 02/20/23 13:15 Pulse 77 02/20/23 13:15 Resp 16 02/20/23 13:15 BP 122/70 02/20/23 13:15 Pulse Ox 97 02/20/23 13:15 O2 Del Method Nasal Cannula 02/20/23 13:15 O2 Flow Rate 1 02/20/23 13:15 Pertinent Lab Results Pertinent Lab Results: Laboratory Tests 02/19/23 02/19/23 02/19/23 17:09 19:11 21:43 WBC 6.4 RBC 3.90 L Hgb 13.9 Hct 37.6 MCV 96.4 MCH 35.6 H MCHC 37.0 H RDW 13.2 Plt Count 150 L MPV 8.6 L Immature Gran % (Auto) 0.3 Neut % (Auto) 79.8 H Lymph % (Auto) 13.2 L [place] % (Auto) 6.4 Eos % (Auto) 0.0 Baso % (Auto) 0.3 Lymph # (Auto) 0.9 L [place] # (Auto) 0.4 Eos # (Auto) 0.0 Baso # (Auto) 0.0 Abs Immat Gran (auto) 0.02 Absolute Neuts (auto) 5.1 Absolute Nucleated RBC 0.000 Nucleated RBC % (auto) 0.0 Sodium 127 L 131 L Potassium 6.0 H* D 4.3 D Chloride 88 L 93 L Carbon Dioxide 25 26 Anion Gap 20 16 BUN 13 10 Creatinine 0.71 0.59 Estim Creat Clear Calc 50.0 60.2 Estimated GFR > 60 > 60 Random Glucose 92 76 Osmolality 285 Calcium 10.3 H D 9.5 D Total Bilirubin 0.5 AST 29 ALT 13 Alkaline Phosphatase 113 Total Creatine Kinase 134 Total Protein 6.9 Albumin 3.9 Urine Color Yellow Urine Appearance Clear Urine pH 5.5 Ur Specific [place] 1.010 Urine Protein 100 (2+) H Urine Glucose (UA) Negative Urine Ketones Trace Urine Blood Moderate (2+) H Urine Nitrite Positive H Ur Leukocyte Esterase Negative Urine RBC 0-2 Urine WBC 0-5 Ur Squamous Epith Cells 6-10 Urine Bacteria 4+ Hyaline Casts 0-2 Urine Osmolality 317 L Ur Random Sodium 53.0 02/20/23 09:16 WBC 5.9 RBC 3.86 L Hgb 13.9 Hct 38.6 MCV 100.0 H MCH 36.0 H MCHC 36.0 H RDW 13.2 Plt Count 149 L MPV 9.7 Immature Gran % (Auto) 0.3 Neut % (Auto) 76.6 H Lymph % (Auto) 10.9 L [place] % (Auto) 9.2 Eos % (Auto) 2.7 Baso % (Auto) 0.3 Lymph # (Auto) 0.6 L [place] # (Auto) 0.5 Eos # (Auto) 0.2 Baso # (Auto) 0.0 Abs Immat Gran (auto) 0.02 Absolute Neuts (auto) 4.5 Absolute Nucleated RBC 0.000 Nucleated RBC % (auto) 0.0 Sodium 131 L Potassium 4.4 Chloride 91 L Carbon Dioxide 21 L Anion Gap 23 H BUN 10 Creatinine 0.74 Estim Creat Clear Calc 47.9 Estimated GFR > 60 Random Glucose 89 Osmolality Calcium 9.4 Total Bilirubin AST ALT Alkaline Phosphatase Total Creatine Kinase Total Protein Albumin Urine Color Urine Appearance Urine pH Ur Specific [place] Urine Protein Urine Glucose (UA) Urine Ketones Urine Blood Urine Nitrite Ur Leukocyte Esterase Urine RBC Urine WBC Ur Squamous Epith Cells Urine Bacteria Hyaline Casts Urine Osmolality Ur Random Sodium Airway Mallampati Class: I TM Dist: >3cm Neck ROM: Limited (3 neck surgeries) Loose/Missing/Broken Teeth: Yes (loose molar in right upper jaw) Heart: S1S2 Lungs: CTAB Assessment and Plan Assessment Anesthesia Assessment: Anesthesia Plan Discussed and Chart Reviewed Final Anesthetic Review Family History of Problems with Anesthesia: No History of Problems with Anesthesia: No NPO: Yes ASA Class: III Final Preanesthetic Review: No Changes in Pt Med Stat, Meds/Allgs Chart Reviewed, Consent Obtained/Reviewed and Anes Risks/Benef Reviewed Patient Risk: Intermediate Procedure Risk: Low Anesthetic Plan Anesthetic Plan: GA and Agree w/ Assess. and Plan Disposition: Standard PACU
[2023-02-20] MEDS: Acetaminophen 1,000 MG/100 ML PIGGYBACK 400 MG IV (17:17)
[2023-02-20] MEDS: cefTRIAXone sodium 1 GM in 0.9 % Sodium Chloride 50 ML IV (20:37)
[2023-02-20] MEDS: Aspirin 325 MG TABLET PO (20:37)
[2023-02-21] VITALS (7 sets, daily range): BP systolic 98–104; BP diastolic 58–60; PULSE 78–91; RESP 16–20; TEMP 36–36.8; O2SAT 93–98; BMI 16.9
[2023-02-21 04:28] LABS: Hemoglobin 10.1 g/dl (12.0-16.0); PLT CLUMP 1
[2023-02-21 04:30] LABS: Hematocrit 28.4 % (37.0-47.0); Mean Corpuscular HGB Conc 35.6 g/dl (31.0-35.0); Mean Corpuscular Hemoglobin 35.8 pg (27.0-33.0); Mean Corpuscular Volume 100.7 fL (80.0-98.0); Mean Platelet Volume 9.9 fL (9.4-12.3); Red Blood Count 2.82 X10*6/uL (4.20-5.50); Red Cell Distribution Width 13.4 % (11.0-16.0)
[2023-02-21 04:32] LABS: Platelet Count 131 X10*3/uL (160-400); White Blood Count 5.5 X10*3/uL (4.8-10.8)
[2023-02-21 04:43] LABS: Anion Gap 11 (12-20); Anion Gap 12 (12-20); Blood Urea Nitrogen 13 mg/dL (9-16); Calcium 8.1 mg/dL (8.4-10.2); Calcium 8.3 mg/dL (8.4-10.2); Carbon Dioxide 29 mmol/L (22-29); Carbon Dioxide 30 mmol/L (22-29); Chloride 91 mmol/L (96-108); Creatinine Clr Calc Pharmacy 29.8; Creatinine Clr Calc Pharmacy 30.1; Estimated Glomerular Filt Rate 45; Estimated Glomerular Filt Rate 46; Glucose Fasting 125 mg/dL (60-99); Glucose Random 125 mg/dL (60-115); Potassium 3.9 mmol/L (3.3-5.1); Sodium 128 mmol/L (135-145)
[2023-02-21] MEDS: Acetaminophen 325 MG TABLET 650 MG PO ×2 (06:14→20:17)
[2023-02-21] MEDS: Omeprazole 40 MG CAPSULE.DR PO (06:15)
[2023-02-21] MEDS: ceFAZolin Sodium/Dextrose,Iso 2 GM/50 ML PIGGYBACK IV ×2 (06:15→14:24)
[2023-02-21] MEDS: oxyCODONE HCl Immed Release 5 MG TABLET PO ×2 (06:15→20:18)
--- NOTE | 2023-02-21 06:35 | PC.NURSE ---
No order for garcia cath ,cath removed at 0615 DTV #1 at 1215.
--- NOTE | 2023-02-21 06:50 | P.BOP_ITS ---
Brief Operative Note Date of Service: 02/20/23 Pre-op diagnosis: Left hip femoral neck fracture Post-op diagnosis: same Procedure: Left hip cemented unipolar hemiarthroplasty Implants: Paresh unipolar cemented hemiarthroplasty with an Accolade C femoral stem size 2 with a 132 degree neck-shaft angle, stem sleeve size +0, a small cement plug, distal centralizer size 10, femoral head size 40 Surgeon: Marquis Naqvi MD Anesthesia: GETA Was an Tubing Machine Operator used for this Procedure?: No Estimated blood loss (mL): 200 Condition: stable Disposition: PACU
--- NOTE | 2023-02-21 06:52 | W.PM.OPN ---
Operative Note Operative Note Date of Service: 02/20/23 Narrative: After the patient was identified as Leslie Madden and their left hip was initialed by myself the patient was brought to the operating room where general anesthesia via endotracheal tube was induced by the anesthesiologist in routine fashion. The patient was given 2 g of IV Ancef for infection prophylaxis. The patient was then gently rolled into the lateral position. An axillary roll was put into place. All bony prominences were well padded. The patient's pelvis was held securely with hip bolsters. The patient's left hip region and lower extremity were prepped and draped in sterile fashion. A #10 scalpel blade was then used to make a curvilinear incision centered over the greater trochanter. The subcutaneous tissues were dissected using electrocautery down to the fascia sonia. The fascia sonia was then split in line with the skin incision using electrocautery. The split in the fascia sonia was curved posteriorly along its cephalad aspect to help prevent injury to the innervation of the tensor fascia sonia muscle. The patient's leg was gently externally rotated. A lateral Monroe approach was then taken down to the anterior joint capsule. The anterior half of the vastus lateralis was split 1 cm from its insertion and tagged with #2 Ethibond suture. The anterior 1/3 of the gluteus medius incision was then split using electrocautery and tagged with #2 Ethibond suture. An anterior capsulectomy was then performed using electrocautery. The femoral neck fracture was identified. The patient's lower extremity was gently externally rotated. The femoral neck cut was made 1 cm proximal to the lesser trochanter. The femoral head was then removed using a corkscrew. The femoral head measured to be a size 40. The trial size 40 femoral head was put into the acetabulum. The trial fit well. The trial was removed. The acetabulum was irrigated with copious amounts of normal saline solution via pulse lavage. The patient's leg was then placed into a sterile pouch along the anterior aspect of the surgical suite table. Soft tissues were retracted around the proximal femur. A box cutting osteotome was used to make a groove in the medial aspect of the greater trochanter. Broaching was begun with a size 0 press-fit broach. Broaching was increased up to a size 2 cemented broach. The 2 broach fit well. The broach was removed. The distal centralizer was measured to be a size 10. A small cement plug was put into place. The intramedullary canal was irrigated with copious amounts of normal saline solution via pulse lavage while the cement was mixed. Once the cement reached a doughy state it was pressurized into the intramedullary canal. The final implant was put into place. Once the cement had hardened a trial size 40 shell with a +0 mm neck was put into place. The hip was reduced. Leg lengths were clinically equal. The hip was taken through a full range of motion. There was no instability. The hip was dislocated and the patient's leg was placed into the sterile pouch. The trial head was removed. The wound was irrigated with copious amounts of normal saline solution via pulse lavage. The final head and shell were impacted in the place. Leg lengths were clinically equal. Hip was taken through a full range of motion. There was no instability. The patient's leg was then placed onto a well-padded Wright stand. The wound was once again irrigated. The vastus lateralis and tensor fascia sonia tendons were repaired with #2 Ethibond [id number] interrupted suture. The wound was once again irrigated. The fascia sonia was closed with #2 Ethibond [id number] interrupted suture as well as #1 Vicryl [id number] interrupted suture. The wound was once again irrigated. The subcutaneous tissues were closed with 0 Vicryl and 2-0 Vicryl interrupted suture. The skin was closed with skin marce. Dry sterile dressing was placed over the incision. The patient was gently rolled into the supine position. The patient was awoken and extubated in the operating room. The patient was transferred to the recovery room in stable condition.
[2023-02-21] MEDS: Albuterol/Iprat 2.5/0.5MG 3 ML AMPUL.NEB INHALE ×2 (07:48→13:16)
[2023-02-21 08:21] LABS: Hematocrit 26.7 % (37.0-47.0); Hemoglobin 9.4 g/dl (12.0-16.0)
[2023-02-21] MEDS: Aspirin 325 MG TABLET PO (09:00)
[2023-02-21] MEDS: 0.9 % Sodium Chloride 1,000 ML 999 ML IV (09:01)
[2023-02-21] MEDS: Metoprolol Succinate ER 25 MG TAB.ER.24H PO (09:01)
[2023-02-21] MEDS: Multivitamin TABLET 1 TAB PO (09:01)
[2023-02-21] MEDS: Montelukast Sodium 10 MG TABLET PO (09:01)
[2023-02-21] MEDS: 0.9 % Sodium Chloride Flush 3 ML SYRINGE IVFLUSH ×2 (09:02→16:58)
[2023-02-21] MEDS: Enoxaparin Sodium 30 MG/0.3 ML SYRINGE SUBCUT (11:53)
--- NOTE | 2023-02-21 12:14 | MHC.CLN ---
NUTRITION DIET=REGULAR DIET. AGREES TO TRY ENSURE SUPPLEMENT BID. TAKES BOOST AT HOME. ENSURE BID PROVIDES ADDITIONAL 700 KCALS, 40 G PROTEIN. PATIENT WITH IBS. STATED THAT REGULAR DIET OK HERE. NON SEVERE MALNUTRITION IN THE CONTEXT OF CHRONIC ILLNESS. PATIENT WITH CACHEXIA AND FAILURE TO THRIVE. FOLLOW FOR INTAKE AND WEIGHT. SEE CLINICAL NUTRITION ASSESSMENT.
--- NOTE | 2023-02-21 13:21 | P.PNIM_ITS ---
Subjective Subjective Date of Service: 02/21/23 Interval History: Seen and evaluated POD 1 pain under fair control BP soft denies any fever, chills Review of Systems Review of Systems: Yes all other systems are reviewed and are negative Physical Exam 2 Vital Signs: Vital Signs: Last Vital Signs Temp 97.8 F 02/21/23 08:00 Pulse 79 02/21/23 13:16 Resp 16 02/21/23 13:16 BP 104/58 L 02/21/23 10:00 Pulse Ox 96 02/21/23 10:00 O2 Del Method Nasal Cannula 02/21/23 08:00 O2 Flow Rate 2.0 02/21/23 08:00 BMI result Body Mass Index 16.9 Const: Other: Constitutional : Awake, interactive, not in distress Neck : Normal inspection, Supple Cardiovascular : RRR, no JVP, no lower extremity edema Respiratory : good bilateral air entry, no crackles, wheezes or rhonchi Gastrointestinal: soft, lax, Normal bowel sounds, Non tender Skin : Warm, Dry Steletal: left leg in dressing, no erythema or drainage noted Neurological : Alert & oriented x3, No focal deficit Objective Data Active Medications Acetaminophen (Acetaminophen 325 Mg Tablet) 650 mg PO Q6H PRN PRN Reason: Pain, Mild (Pain Scale 1-3) Last Admin: 02/21/23 06:14 Dose: 650 mg Documented By: MICHAEL Acetaminophen/Codeine Phosphate (Acetaminophen With Codeine # 3 Tablet) 1 tab PO Q8H PRN PRN Reason: Pain, Moderate(Pain Scale 4-6) Last Admin: 02/21/23 09:00 Dose: 1 tab Documented By: PHILLY Albuterol Sulfate (Albuterol Sulfate 90 Mcg 8 Gm Inhaler) 1 puff INHALE QID PRN PRN Reason: Shortness Of Breath Albuterol/Ipratropium (Albuterol/Iprat 2.5/0.5mg 3 Ml Ampul.Neb) 3 ml INHALE RQ6H WHILE AWAKE [facility] Last Admin: 02/21/23 13:16 Dose: 3 ml Documented By: EVA Docusate Sodium (Docusate Sodium 100 Mg Capsule) 100 mg PO DAILY PRN PRN Reason: Constipation Last Admin: 02/20/23 12:49 Dose: 100 mg Documented By: HAILY Enoxaparin Sodium (Enoxaparin Sodium 30 Mg/0.3 Ml Syringe) 30 mg SUBCUT Q24H [facility] Last Admin: 02/21/23 11:53 Dose: 30 mg Documented By: PHILLY Fentanyl (Fentanyl Citrate/Pf 100 Mcg/2 Ml Vial) 25 mcg IVPUSH Q5M PRN; Protocol PRN Reason: Pain, Moderate(Pain Scale 4-6) Fluticasone Propionate (Fluticasone Propionate Nasal 16 Gm [place]) 1 spray NOSTRIL-B BID PRN PRN Reason: Allergic Symptoms Ceftriaxone Sodium 1 gm/ (Sodium Chloride) 50 mls @ 100 mls/hr IV Q24H [facility] Last Infusion: 02/20/23 21:12 Dose: Infused Documented By: MICHAEL Promethazine HCl 12.5 mg/ (Sodium Chloride) 50.5 mls @ 202 mls/hr IV ONCE PRN PRN Reason: Nausea and Vomiting Cefazolin Sodium/Dextrose (Ancef) 2 gm in 50 mls @ 100 mls/hr IV Q8H [facility] Stop: 02/21/23 22:59 Last Infusion: 02/21/23 06:45 Dose: Infused Documented By: MICHAEL Lisinopril (Lisinopril 10 Mg Tablet) 10 mg PO DAILY [facility]; Protocol Last Admin: 02/20/23 08:38 Dose: 10 mg Documented By: HAILY Metoprolol Succinate (Metoprolol Succinate Er 25 Mg Tab.Er.24h) 25 mg PO DAILY [facility]; Protocol Last Admin: 02/21/23 09:01 Dose: 25 mg Documented By: PHILLY Montelukast Sodium (Montelukast Sodium 10 Mg Tablet) 10 mg PO DAILY [facility] Last Admin: 02/21/23 09:01 Dose: 10 mg Documented By: PHILLY Multivitamins/Vitamin C (Multivitamin Tablet) 1 tab PO DAILY [facility] Last Admin: 02/21/23 09:01 Dose: 1 tab Documented By: PHILLY Omeprazole (Omeprazole 40 Mg Capsule.) 40 mg PO DAILY@0630 [facility] Last Admin: 02/21/23 06:15 Dose: 40 mg Documented By: MICHAEL Ondansetron HCl (Ondansetron Hcl 4 Mg/2 Ml Vial) 4 mg IVPUSH Q8H PRN PRN Reason: Nausea and Vomiting Oxycodone HCl (Oxycodone Hcl Immed Release 5 Mg Tablet) 5 mg PO Q4H PRN PRN Reason: Pain, Severe (Pain Scale 7-10) Last Admin: 02/21/23 06:15 Dose: 5 mg Documented By: MICHAEL Sodium Chloride (0.9 % Sodium Chloride Flush 3 Ml Syringe) 3 ml IVFLUSH QSHIFT [facility] Last Admin: 02/21/23 07:02 Dose: Not Given Documented By: PHILLY Non-Admin Reason: Duplicate Order Sodium Chloride (0.9 % Sodium Chloride Flush 3 Ml Syringe) 3 ml IVFLUSH QSHIFT [facility] Last Admin: 02/21/23 09:02 Dose: 3 ml Documented By: PHILLY Labs 02/21/23 07:59 02/21/23 04:13 Labs: Laboratory Results - last 24 hr 02/21/23 02/21/23 02/21/23 04:13 04:13 04:13 MCV 100.7 H MCH 35.8 H MCHC 35.6 H RDW 13.4 Plt Count 131 L MPV 9.9 Absolute Nucleated RBC 0.000 Nucleated RBC % (auto) 0.0 Anion Gap 11 L 12 Estim Creat Clear Calc 30.1 29.8 Estimated GFR 46 Random Glucose Fasting Glucose Calcium 02/21/23 02/21/23 04:13 04:13 MCV MCH MCHC RDW Plt Count MPV Absolute Nucleated RBC Nucleated RBC % (auto) Anion Gap Estim Creat Clear Calc Estimated GFR 45 Random Glucose 125 H Fasting Glucose 125 H Calcium 8.3 L D 8.1 L Microbiology Microbiology Results: Microbiology 02/20/23 09:16 Blood Culture - Preliminary Blood - Venous No growth after 24 hours. 02/19/23 Unknown Urine Culture - Preliminary Urine clean catch - Urine britton top Gram negative zeinab 02/20/23 03:10 Blood Culture - Preliminary Blood - Venous No growth after 24 hours. Assessment and Plan (1) Left displaced femoral neck fracture: Status: Acute (2) Hyponatremia: Status: Acute Plan 68-year-old female active smoker with past medical history of hypertension, degenerative disc disease, chronic back pain comes into the hospital after a fall and having left leg pain found to have fracture # left femoral neck fracture POD 1 Start PT\PT Lovenox for DVT PPx pain management # acute hypoxic respiratory failure, unclear etiology resolved CT angiogram no significant findings To do Incentive spirometry # hyperkalemia resolved # acute on chronic hyponatremia trending down to 128 this morning, baseline early 130s encourage PO intake follow BMP # GERD continue omeprazole # history of COPD continue home inhalers # hypertension continue antihypertensives DVT prophylaxis: Lovenox Post Op, pending safe discharge plan, pain management and hyponatremia treatment. Time Spent With Patient Time: Total time managing care of this patient today ____ minutes. Quality Stroke Does the patient have a stroke diagnosis?: No VTE Prior VTE?: No VTE Risk Level:: Surgical - very high VTE Device Contraindication: N/A - Device Ordered VTE Drug Contraindication: Treatment Not Indicated
[2023-02-21 14:21] LABS: Anion Gap 12 (12-20); Blood Urea Nitrogen 14 mg/dL (9-16); Carbon Dioxide 27 mmol/L (22-29); Chloride 93 mmol/L (96-108); Estimated Glomerular Filt Rate 35; Glucose Random 146 mg/dL (60-115); Sodium 128 mmol/L (135-145)
--- NOTE | 2023-02-21 14:25 | HO.POSTANES ---
Post Anesthesia Evaluation Post Anesthesia Evaluation Date of Service: 02/21/23 Vital Signs: Vital Signs Temp Pulse Resp BP Pulse Ox O2 Del Method O2 Flow Rate 02/21/23 13:16 79 16 02/21/23 10:00 79 104/58 L 96 02/21/23 08:00 97.8 F 79 16 104/58 L 96 Nasal Cannula 2.0 02/21/23 07:53 91 16 02/21/23 03:44 98.2 F 78 17 101/58 L 95 Nasal Cannula 2 Anesthesia: General Mental Status: Awake Pain Control: Satisfactory (fair pain control) Nausea/Vomiting: None Hydration: Adequate Anesthesia-Related Issues: No Anes. Related Issues
--- NOTE | 2023-02-21 15:19 | MHC.CM.PN ---
Met with patient to discuss discharge planning. Patient preferred to go to a [facility] in [place]. No bed offers were received. A bed offer was received from [facility]. The patient has accepted the bed. The facility has gone for insurance authorization. Patient will transport via BLS.
[2023-02-21] MEDS: 0.9 % Sodium Chloride 1,000 ML 75 ML IVCONT (17:40)
[2023-02-21] MEDS: cefTRIAXone sodium 1 GM in 0.9 % Sodium Chloride 50 ML IV (20:54)
[2023-02-22] VITALS (7 sets, daily range): BP systolic 93–110; BP diastolic 50–62; PULSE 68–87; RESP 16–18; TEMP 36.2–36.8; O2SAT 91–92
[2023-02-22 05:44] LABS: Hematocrit 25.3 % (37.0-47.0); Hemoglobin 8.8 g/dl (12.0-16.0); Mean Corpuscular HGB Conc 34.8 g/dl (31.0-35.0); Mean Corpuscular Hemoglobin 35.3 pg (27.0-33.0); Mean Corpuscular Volume 101.6 fL (80.0-98.0); Mean Platelet Volume 9.8 fL (9.4-12.3); Platelet Count 124 X10*3/uL (160-400); Red Blood Count 2.49 X10*6/uL (4.20-5.50); Red Cell Distribution Width 13.4 % (11.0-16.0); White Blood Count 5.9 X10*3/uL (4.8-10.8)
[2023-02-22 06:02] LABS: Anion Gap 11 (12-20); Blood Urea Nitrogen 17 mg/dL (9-16); Calcium 7.6 mg/dL (8.4-10.2); Carbon Dioxide 26 mmol/L (22-29); Chloride 95 mmol/L (96-108); Creatinine Clr Calc Pharmacy 23.2; Estimated Glomerular Filt Rate 34; Glucose Random 112 mg/dL (60-115); Potassium 3.6 mmol/L (3.3-5.1); Sodium 128 mmol/L (135-145)
[2023-02-22] MEDS: Omeprazole 40 MG CAPSULE.DR PO (06:06)
[2023-02-22] MEDS: oxyCODONE HCl Immed Release 5 MG TABLET PO ×4 (06:06→21:12)
[2023-02-22] MEDS: 0.9 % Sodium Chloride 1,000 ML 75 ML IVCONT (06:23)
[2023-02-22] MEDS: Albuterol/Iprat 2.5/0.5MG 3 ML AMPUL.NEB INHALE (07:48)
[2023-02-22] MEDS: Metoprolol Succinate ER 25 MG TAB.ER.24H PO (08:08)
[2023-02-22] MEDS: Montelukast Sodium 10 MG TABLET PO (08:08)
[2023-02-22] MEDS: Multivitamin TABLET 1 TAB PO (08:08)
[2023-02-22] MEDS: Acetaminophen 325 MG TABLET 650 MG PO (08:09)
[2023-02-22 08:21] LABS: Alanine Aminotransferase < 5 U/L (0-31); Albumin Level 2.6 g/dL (3.5-5.0); Alkaline Phosphatase 68 U/L (39-117); Aspartate Amino Transferase 23 U/L (5-31); Bilirubin Direct < 0.2 mg/dL (0.0-0.5); Bilirubin Total 0.2 mg/dL (0.0-1.0); Total Protein 4.9 g/dL (6.5-8.0)
[2023-02-22] MEDS: Enoxaparin Sodium 30 MG/0.3 ML SYRINGE SUBCUT (10:34)
--- NOTE | 2023-02-22 11:25 | HO.PM.IMPN ---
Subjective Subjective Date of Service: 02/22/23 Interval History: Seen and evaluated POD 2 Hb dropped to 8.8 complaining of pain and weakness BP improved denies any fever, chills Review of Systems Review of Systems: Yes all other systems are reviewed and are negative Physical Exam Vital Signs: Vital Signs: Last Vital Signs Temp 97.1 F 02/22/23 07:22 Pulse 80 02/22/23 10:58 Resp 16 02/22/23 07:51 BP 110/59 L 02/22/23 07:22 Pulse Ox 92 02/22/23 07:22 O2 Del Method Room Air 02/22/23 07:22 O2 Flow Rate 2.0 02/21/23 08:00 BMI result Body Mass Index 16.9 Const: Other: Constitutional : Awake, interactive, not in distress Neck : Normal inspection, Supple Cardiovascular : RRR, no JVP, no lower extremity edema Respiratory : good bilateral air entry, no crackles, wheezes or rhonchi Gastrointestinal: soft, lax, Normal bowel sounds, Non tender Skin : Warm, Dry Steletal: left leg in dressing, no erythema or drainage noted Neurological : Alert & oriented x3, No focal deficit Objective Data Active Medications Acetaminophen (Acetaminophen 325 Mg Tablet) 650 mg PO Q6H PRN PRN Reason: Pain, Mild (Pain Scale 1-3) Last Admin: 02/22/23 08:09 Dose: 650 mg Documented By: COTEMA Acetaminophen (Acetaminophen 325 Mg Tablet) 975 mg PO TID [facility] Acetaminophen/Codeine Phosphate (Acetaminophen With Codeine # 3 Tablet) 1 tab PO Q8H PRN PRN Reason: Pain, Moderate(Pain Scale 4-6) Last Admin: 02/22/23 01:42 Dose: 1 tab Documented By: OZORALB Albuterol Sulfate (Albuterol Sulfate 90 Mcg 8 Gm Inhaler) 1 puff INHALE QID PRN PRN Reason: Shortness Of Breath Albuterol/Ipratropium (Albuterol/Iprat 2.5/0.5mg 3 Ml Ampul.Neb) 3 ml INHALE RQ6H WHILE AWAKE PRN PRN Reason: Shortness of Breath/Wheezing Docusate Sodium (Docusate Sodium 100 Mg Capsule) 100 mg PO DAILY PRN PRN Reason: Constipation Last Admin: 02/20/23 12:49 Dose: 100 mg Enoxaparin Sodium (Enoxaparin Sodium 30 Mg/0.3 Ml Syringe) 30 mg SUBCUT Q24H [facility] Last Admin: 02/22/23 10:34 Dose: 30 mg Documented By: MANANEMA Fentanyl (Fentanyl Citrate/Pf 100 Mcg/2 Ml Vial) 25 mcg IVPUSH Q5M PRN; Protocol PRN Reason: Pain, Moderate(Pain Scale 4-6) Fluticasone Propionate (Fluticasone Propionate Nasal 16 Gm [place]) 1 spray NOSTRIL-B BID PRN PRN Reason: Allergic Symptoms Ceftriaxone Sodium 1 gm/ (Sodium Chloride) 50 mls @ 100 mls/hr IV Q24H [facility] Last Infusion: 02/21/23 21:29 Dose: Infused Documented By: CHERY Promethazine HCl 12.5 mg/ (Sodium Chloride) 50.5 mls @ 202 mls/hr IV ONCE PRN PRN Reason: Nausea and Vomiting Lisinopril (Lisinopril 10 Mg Tablet) 10 mg PO DAILY [facility]; Protocol Last Admin: 02/20/23 08:38 Dose: 10 mg Documented By: HAILY Metoprolol Succinate (Metoprolol Succinate Er 25 Mg Tab.Er.24h) 25 mg PO DAILY [facility]; Protocol Last Admin: 02/22/23 08:08 Dose: 25 mg Documented By: SHEYLA Montelukast Sodium (Montelukast Sodium 10 Mg Tablet) 10 mg PO DAILY [facility] Last Admin: 02/22/23 08:08 Dose: 10 mg Documented By: SHEYLA Multivitamins/Vitamin C (Multivitamin Tablet) 1 tab PO DAILY [facility] Last Admin: 02/22/23 08:08 Dose: 1 tab Documented By: SHEYLA Omeprazole (Omeprazole 40 Mg Capsule.Dr) 40 mg PO DAILY@0630 [facility] Last Admin: 02/22/23 06:06 Dose: 40 mg Documented By: CHERY Ondansetron HCl (Ondansetron Hcl 4 Mg/2 Ml Vial) 4 mg IVPUSH Q8H PRN PRN Reason: Nausea and Vomiting Oxycodone HCl (Oxycodone Hcl Immed Release 5 Mg Tablet) 5 mg PO Q4H PRN PRN Reason: Pain, Severe (Pain Scale 7-10) Last Admin: 02/22/23 10:35 Dose: 5 mg Documented By: SHEYLA Polyethylene Glycol (Polyethylene Glycol 3350 17 Gm Powd.Pack) 17 gm PO DAILY [facility] Sodium Chloride (0.9 % Sodium Chloride Flush 3 Ml Syringe) 3 ml IVFLUSH QSHIFT [facility] Last Admin: 02/22/23 07:46 Dose: Not Given Documented By: SHEYLA Non-Admin Reason: IV Running Sodium Chloride (0.9 % Sodium Chloride Flush 3 Ml Syringe) 3 ml IVFLUSH QSHIFT [facility] Last Admin: 02/22/23 07:46 Dose: Not Given Documented By: SHEYLA Non-Admin Reason: IV Running Labs 02/22/23 05:32 02/22/23 05:32 Labs: Laboratory Results - last 24 hr 02/21/23 02/22/23 14:01 05:32 MCV 101.6 H MCH 35.3 H MCHC 34.8 RDW 13.4 Plt Count 124 L MPV 9.8 Absolute Nucleated RBC 0.000 Nucleated RBC % (auto) 0.0 Anion Gap 12 11 L Estim Creat Clear Calc 24.0 23.2 Estimated GFR 35 34 Random Glucose 146 H 112 Calcium 8.0 L 7.6 L Total Bilirubin 0.2 Direct Bilirubin < 0.2 AST 23 ALT < 5 Alkaline Phosphatase 68 Total Protein 4.9 L Albumin 2.6 L Microbiology Microbiology Results: Microbiology 02/19/23 Unknown Urine Culture - Final Urine clean catch - Urine britton top Escherichia coli 02/20/23 03:10 Blood Culture - Preliminary Blood - Venous No growth after 48 hours. 02/20/23 09:16 Blood Culture - Preliminary Blood - Venous No growth after 24 hours. Assessment and Plan (1) Left displaced femoral neck fracture: Status: Acute (2) Hyperkalemia: Status: Acute (3) Hyponatremia: Status: Acute (4) Acute kidney injury: Status: Acute Plan 68-year-old female active smoker with past medical history of hypertension, degenerative disc disease, chronic back pain comes into the hospital after a fall and having left leg pain found to have fracture # left femoral neck fracture POD 2 OT\PT Lovenox for DVT PPx pain management # acute hypoxic respiratory failure, unclear etiology resolved, CT angiogram no significant findings but minimal atelactasis To do Incentive spirometry # hyperkalemia resolved # EILF Cr went up to 1.5 from 0.6 likely related to low BP readings in surgery time Lost IV access this morning, hold IVF for now get nephrology consult follow BMP # Pseudohypocalcemia Corrected Ca of 8.7 # acute on chronic hyponatremia remains at 128 this morning, baseline early 130s encourage PO intake Urine studies Monitor BMP # GERD continue omeprazole # history of COPD continue home inhalers # hypertension continue antihypertensives DVT prophylaxis: Lovenox Post Op, pending safe discharge plan, pain management and hyponatremia treatment. Time Spent With Patient Time: Total time managing care of this patient today ____ minutes. Quality Stroke Does the patient have a stroke diagnosis?: No VTE Prior VTE?: No VTE Risk Level:: Surgical - very high VTE Device Contraindication: N/A - Device Ordered VTE Drug Contraindication: Treatment Not Indicated
--- NOTE | 2023-02-22 12:15 | PM.CNNEP ---
History of Present Illness Reason for Consult Consult date: 02/22/23 Chief Complaint Chief complaint: Femoral fx History of Present Illness Narrative: Ms. Leslie Madden is a 68-year-old female with past medical history of hypertension, degenerative disc disease, chronic back pain who presented after a fall with left femoral neck fracture. Course is now complicated by ELIF and Hyponatremia in the setting of hypotension, H/H drop, and hypoxic respiratory failure. Review of Systems Review of Systems Yes all other systems are reviewed and are negative PMFSH Past Medical History Medical History GERD (gastroesophageal reflux disease) JANAY (generalized anxiety disorder) IBS (irritable bowel syndrome) MDD (major depressive disorder) Pulmonary nodule Current smoker HTN (hypertension) Family History Family History Father Lung cancer Brain cancer Mother CVD (cardiovascular disease) Breast cancer Son In good health Brother In good health Surgical History Surgical History History of cervical discectomy Social History Social History Household Members: None Household Members Other:: self Housing: House Do you presently have visiting nurse or other home services: No Alcohol intake: current Alcohol intake frequency: holidays/special occasions only Patient Tobacco Use Status: Current everyday Tobacco user Tobacco use type: Cigarette Cigarette Packs Per Day: 0.5 Cigarettes Per Day: 10.0 e-Cigarette/Vaping Use: Never Used Advance Directives Date on File: 10/21/22 service: No Current occupational status: retired Cognitive needs: No Hearing needs: No Vision needs: No Meds Allergies Allergy/AdvReac Type Severity Reaction Status Date / Time cat dander Allergy Unknown Unknown Verified 12/20/22 09:54 morphine Allergy Unknown unknown Verified 12/20/22 09:54 seasonal allergies Allergy Unknown Unknown Uncoded 10/21/22 10:32 Active Medications: Current Medications Acetaminophen (Acetaminophen 325 Mg Tablet) 650 mg PO Q6H PRN PRN Reason: Pain, Mild (Pain Scale 1-3) Last Admin: 02/22/23 08:09 Dose: 650 mg Acetaminophen (Acetaminophen 325 Mg Tablet) 975 mg PO TID [facility]ODI Acetaminophen/Codeine Phosphate (Acetaminophen With Codeine # 3 Tablet) 1 tab PO Q8H PRN PRN Reason: Pain, Moderate(Pain Scale 4-6) Last Admin: 02/22/23 01:42 Dose: 1 tab Albuterol Sulfate (Albuterol Sulfate 90 Mcg 8 Gm Inhaler) 1 puff INHALE QID PRN PRN Reason: Shortness Of Breath Albuterol/Ipratropium (Albuterol/Iprat 2.5/0.5mg 3 Ml Ampul.Neb) 3 ml INHALE RQ6H WHILE AWAKE PRN PRN Reason: Shortness of Breath/Wheezing Docusate Sodium (Docusate Sodium 100 Mg Capsule) 100 mg PO DAILY PRN PRN Reason: Constipation Last Admin: 02/20/23 12:49 Dose: 100 mg Enoxaparin Sodium (Enoxaparin Sodium 30 Mg/0.3 Ml Syringe) 30 mg SUBCUT Q24H [facility] Last Admin: 02/22/23 10:34 Dose: 30 mg Fentanyl (Fentanyl Citrate/Pf 100 Mcg/2 Ml Vial) 25 mcg IVPUSH Q5M PRN; Protocol PRN Reason: Pain, Moderate(Pain Scale 4-6) Fluticasone Propionate (Fluticasone Propionate Nasal 16 Gm [place]) 1 spray NOSTRIL-B BID PRN PRN Reason: Allergic Symptoms Ceftriaxone Sodium 1 gm/ (Sodium Chloride) 50 mls @ 100 mls/hr IV Q24H [facility] Last Infusion: 02/21/23 21:29 Dose: Infused Promethazine HCl 12.5 mg/ (Sodium Chloride) 50.5 mls @ 202 mls/hr IV ONCE PRN PRN Reason: Nausea and Vomiting Lisinopril (Lisinopril 10 Mg Tablet) 10 mg PO DAILY [facility]; Protocol Last Admin: 02/20/23 08:38 Dose: 10 mg Metoprolol Succinate (Metoprolol Succinate Er 25 Mg Tab.Er.24h) 25 mg PO DAILY [facility]; Protocol Last Admin: 02/22/23 08:08 Dose: 25 mg Montelukast Sodium (Montelukast Sodium 10 Mg Tablet) 10 mg PO DAILY [facility] Last Admin: 02/22/23 08:08 Dose: 10 mg Multivitamins/Vitamin C (Multivitamin Tablet) 1 tab PO DAILY [facility] Last Admin: 02/22/23 08:08 Dose: 1 tab Omeprazole (Omeprazole 40 Mg Capsule.Dr) 40 mg PO DAILY@06 [facility] Last Admin: 02/22/23 06:06 Dose: 40 mg Ondansetron HCl (Ondansetron Hcl 4 Mg/2 Ml Vial) 4 mg IVPUSH Q8H PRN PRN Reason: Nausea and Vomiting Oxycodone HCl (Oxycodone Hcl Immed Release 5 Mg Tablet) 5 mg PO Q4H PRN PRN Reason: Pain, Severe (Pain Scale 7-10) Last Admin: 02/22/23 10:35 Dose: 5 mg Polyethylene Glycol (Polyethylene Glycol 3350 17 Gm Powd.Pack) 17 gm PO DAILY [facility] Sodium Chloride (0.9 % Sodium Chloride Flush 3 Ml Syringe) 3 ml IVFLUSH [facility] Last Admin: 02/22/23 07:46 Dose: Not Given Sodium Chloride (0.9 % Sodium Chloride Flush 3 Ml Syringe) 3 ml IVFLUSH [facility] Last Admin: 02/22/23 07:46 Dose: Not Given Home Medications Medication Instructions Recorded Confirmed Last Taken Type albuterol sulfate 90 mcg/actuation 1 puff inhalation QID PRN 10/21/22 02/19/23 Unknown History aerosol inhaler Shortness Of Breath fluticasone propionate 50 1 spray intranasal BID PRN 10/21/22 02/19/23 Unknown History mcg/actuation nasal Allergic Symptoms spray,suspension (Flonase Allergy Relief) multivitamin 1 tab PO DAILY 10/21/22 02/19/23 10/21/22 History omeprazole 40 mg capsule,delayed 40 mg PO DAILY@0630 10/21/22 02/19/23 10/21/22 History release Physical Exam Vital Signs: Last Vital Signs Temp 97.1 F 02/22/23 07:22 Pulse 80 02/22/23 10:58 Resp 16 02/22/23 07:51 BP 110/59 L 02/22/23 07:22 Pulse Ox 92 02/22/23 07:22 O2 Del Method Room Air 02/22/23 07:22 O2 Flow Rate 2.0 02/21/23 08:00 BMI result Body Mass Index 16.9 Const Other: Constitutional : Awake, interactive, not in distress Neck : Normal inspection, Supple Cardiovascular : RRR, no JVP, no lower extremity edema Respiratory : good bilateral air entry, no crackles, wheezes or rhonchi Gastrointestinal: soft, lax, Normal bowel sounds, Non tender Skin : Warm, Dry Steletal: left leg in dressing, no erythema or drainage noted Neurological : Alert & oriented x3, No focal deficit Results Lab Results 02/22/23 05:32 02/22/23 05:32 Lab results: Chemistry 02/19/23 02/19/23 02/20/23 17:09 21:43 09:16 Sodium 127 L 131 L 131 L Potassium 6.0 H* D 4.3 D 4.4 Carbon Dioxide 25 26 21 L BUN 13 10 10 Creatinine 0.71 0.59 0.74 Calcium 10.3 H D 9.5 D 9.4 02/21/23 02/21/23 02/21/23 04:13 04:13 04:13 Sodium 128 L 128 L Potassium 4.0 3.9 Carbon Dioxide 30 H BUN Creatinine Calcium 02/21/23 02/21/23 02/21/23 04:13 04:13 04:13 Sodium Potassium Carbon Dioxide 29 BUN 13 13 Creatinine 1.18 1.19 Calcium 8.3 L D 02/21/23 02/21/23 02/22/23 04:13 14:01 05:32 Sodium 128 L 128 L Potassium 4.0 3.6 Carbon Dioxide 27 26 BUN 14 17 H Creatinine 1.48 H 1.53 H Calcium 8.1 L 8.0 L 7.6 L Hematology 02/19/23 02/20/23 02/21/23 17:09 09:16 04:13 WBC 6.4 5.9 5.5 Hgb 13.9 13.9 10.1 L D Plt Count 150 L 149 L 131 L 02/21/23 02/22/23 07:59 05:32 WBC 5.9 Hgb 9.4 L 8.8 L Plt Count 124 L Urinalysis 02/19/23 19:11 Urine Color Yellow Urine Appearance Clear Urine pH 5.5 Ur Specific [place] 1.010 Urine Protein 100 (2+) H Urine Glucose (UA) Negative Urine Ketones Trace Urine Blood Moderate (2+) H Urine Nitrite Positive H Ur Leukocyte Esterase Negative Urine RBC 0-2 Urine WBC 0-5 Ur Squamous Epith Cells 6-10 Hyaline Casts 0-2 Urine Studies 02/19/23 19:11 Urine Osmolality 317 L Assessment and Plan (1) Left displaced femoral neck fracture: Status: Acute (2) Hyperkalemia: Status: Acute (3) Hyponatremia: Status: Acute (4) Acute kidney injury: Status: Acute Plan Ms. Leslie Madden is a 68-year-old female with past medical history of hypertension, degenerative disc disease, chronic back pain who presented after a fall with left femoral neck fracture. Course is now complicated by ELIF and Hyponatremia in the setting of hypotension, H/H drop, and hypoxic respiratory failure. 1. ELIF BLCr 0.6mg/dL Cr rising in the setting of renal hypo-perfusion. The patent has had anemia, CT contrast, and hypotension all of which reduce renal perfusion. The CT contrast specifically is a potent renal affarent vasoconstrictor. 2. Pseudohypocalcemia Corrected Ca of 8.7 3. acute on chronic hyponatremia BL Hyponatremia with Na around 130meq/L Chronic SIADH based on labs uOSM 317 and Sosm 285 Plan: - given hypotension and hyponatremia would benefit from solute load with naCl 2g BID - urea 30g x1 - fluid restriction - treat for urosepsis also. - renal U/S ordered to rule out infected stone. Time Spent With Patient Time: Total time managing care of this patient today ____ minutes. Procedures Date of Service Date of Service: 02/22/23
[2023-02-22] MEDS: Urea 15 GM POWDER 30 GM PO (12:50)
[2023-02-22] MEDS: polyethylene glycoL 3350 17 GM POWD.PACK PO (12:50)
[2023-02-22] MEDS: Acetaminophen 325 MG TABLET 975 MG PO ×3 (12:51→21:11)
--- NOTE | 2023-02-22 14:12 | P.DS_ITS ---
DS: Providers Provider Date of admission: 02/20/23 02:02 Primary care physician: Michel Dodd PA-C Consults: 02/22/23 07:56 Consult to Nephrology Routine Consulting Provider: Kyle Rousseau Reason for consultation: ELIF, Hyponatremia for your kind eval and rec DS: Diagnosis Discharge Diagnosis (1) Left displaced femoral neck fracture: Status: Acute (2) Hyperkalemia: Status: Acute (3) Hyponatremia: Status: Acute (4) Acute kidney injury: Status: Acute DS: Summary Hospital Course Hospital Course: The patient underwent a successful left hip hemiarthroplasty, they were transferred to PACU and then to the floor to recover. During their stay, their vitals were stable, afebrile at 97.1. Labs were unremarkable, H/H 8.8/25.3. POD 1 they were started on Aspirin 325mg po bid for DVT ppx, they also received Physical Therapy services twice a day. Prior to discharge, their dressing was c hanged, incision clean dry and intact, new Aquacel dressing applied and the plan was to be discharged home with VNA services. Time Spent with Patient Time attestation: Total time managing care of this patient today ____ minutes. Discharge coordination time: Less than 30 minutes Quality: Safe Use of Opioids Does Pt have an Active Cancer Diagnosis on the Problem List?: No Quality: Stroke Does the patient have a stroke diagnosis?: No Physical Exam Vital Signs: Vital Signs: Last Vital Signs Temp 97.1 F 02/22/23 07:22 Pulse 80 02/22/23 10:58 Resp 16 02/22/23 07:51 BP 110/59 L 02/22/23 07:22 Pulse Ox 92 02/22/23 07:22 O2 Del Method Room Air 02/22/23 07:22 O2 Flow Rate 2.0 02/21/23 08:00 BMI result Body Mass Index 16.9 Const: General: cooperative, healthy appearing, comfortable, no acute distress, well developed and alert Orientation/consciousness: patient oriented x3 HEENT: Head: Yes normal to inspection, Yes normocephalic and Yes atraumatic Eyes: General: appearance normal, both eyes and all related structures Neck: Neck: Yes normal visual inspection and Yes no lymphadenopathy Resp: Effort & Inspection: normal respiratory effort and able to speak in comp lete sentences Cardio: Rate: regular rate Peripheral pulses: Peripheral pulses 2+ throughout GI: Inspection: Yes normal to inspection Palpation (GI): Soft to palpation Skin: General skin exam: no rashes or lesions noted Neuro: General: patient oriented x3 Extrem: Other: LLE short and ER, she is holding her hip in a flexed position , pain with log roll, she is able to dorsiflex and plantar flex, NVI. Psych: Appearance: grossly normal Mental Status: mental status grossly normal DS: Data Data Completed and Pending Pending studies at discharge: Pending at discharge 02/20/23 15:52 Surgical [PTH] Routine Labs on day of discharge: Laboratory Results - last 24 hr 02/21/23 02/22/23 14:01 05:32 WBC 5.9 RBC 2.49 L Hgb 8.8 L Hct 25.3 L MCV 101.6 H MCH 35.3 H MCHC 34.8 RDW 13.4 Plt Count 124 L MPV 9.8 Absolute Nucleated RBC 0.000 Nucleated RBC % (auto) 0.0 Sodium 128 L 128 L Potassium 4.0 3.6 Chloride 93 L 95 L Carbon Dioxide 27 26 Anion Gap 12 11 L BUN 14 17 H Creatinine 1.48 H 1.53 H Estim Creat Clear Calc 24.0 23.2 Estimated GFR 35 34 Random Glucose 146 H 112 Calcium 8.0 L 7.6 L Total Bilirubin 0.2 Direct Bilirubin < 0.2 AST 23 ALT < 5 Alkaline Phosphatase 68 Total Protein 4.9 L Albumin 2.6 L Preliminary micro results at discharge 02/20/23 09:16 Blood Culture - Preliminary Blood - Venous No growth after 48 hours. 02/20/23 03:10 Blood Culture - Preliminary Blood - Venous No growth after 48 hours. Discharge Plan Discharge Anticipated Discharge Date/Time: 02/22/23 17:06 Patient Disposition: er [facility] Discharge Diagnosis: s/p left hip elder Referrals: Divina Winchester PA-C [Physician National Account Manager] - 2 Weeks Discharge Medications: No Action montelukast 10 mg tablet 10 mg PO DAILY 90 Days Qty: 90 3RF metoprolol succinate 25 mg tablet extended release 24 hr 25 mg PO DAILY Qty: 90 2RF lisinopril 10 mg tablet 10 mg PO DAILY Qty: 90 2RF (DME) back brace Misc See Rx Instructions .Route Qty: 1 0RF Rx Instructions: As directed acetaminophen-codeine 300-30 mg tablet 1 tab PO Q8H PRN (Reason: pain) 5 Days Qty: 15 0RF omeprazole 40 mg capsule,delayed release(DR/EC) 40 mg PO DAILY@0630 albuterol sulfate 90 mcg/actuation HFA aerosol inhaler 1 puff inhalation QID PRN (Reason: Shortness Of Breath) fluticasone propionate [Flonase Allergy Relief] 50 mcg/actuation spray,suspension 1 spray intranasal BID PRN (Reason: Allergic Symptoms) Rx Instructions: administer into each nostril multivitamin Tablet 1 tab PO DAILY (DME) blood pressure test kit-small Kit See Rx Instructions .Route Qty: 1 0RF Rx Instructions: As directed Diet: Advance to usual diet Activity on Discharge: Use cane or walker Stand Alone Forms: Patient Portal Discharge page Care Plan Goals: restore fxn to left hip Health Concerns: none Plan of Treatment: Physical Therapy for total hip arthroplasty: gait training, ROM, strength Limit stair climbing No showering, no tub bath-keep dressing clean, dry and intact No driving x6 weeks Continue Lovenox tabs once a day x 4 weeks Follow up with [facility] Orthopedics in 2 weeks Assessment: stable for d/c
[2023-02-22 14:59] LABS: Anion Gap 13 (12-20); Blood Urea Nitrogen 21 mg/dL (9-16); Calcium 7.7 mg/dL (8.4-10.2); Carbon Dioxide 23 mmol/L (22-29); Chloride 94 mmol/L (96-108); Creatinine Clr Calc Pharmacy 21.8; Estimated Glomerular Filt Rate 31; Glucose Random 101 mg/dL (60-115); Potassium 3.5 mmol/L (3.3-5.1); Sodium 126 mmol/L (135-145)
[2023-02-22] MEDS: Sodium Chloride Tab 1 GM TABLET 2 GM PO (21:11)
[2023-02-22] MEDS: cefTRIAXone sodium 1 GM in 0.9 % Sodium Chloride 50 ML IV (21:15)
[2023-02-22 21:29] LABS: Anion Gap 13 (12-20); Blood Urea Nitrogen 58 mg/dL (9-16); Calcium 7.3 mg/dL (8.4-10.2); Carbon Dioxide 24 mmol/L (22-29); Chloride 92 mmol/L (96-108); Creatinine Clr Calc Pharmacy 22.3; Estimated Glomerular Filt Rate 32; Glucose Random 128 mg/dL (60-115); Potassium 3.5 mmol/L (3.3-5.1); Sodium 125 mmol/L (135-145)
[2023-02-23 03:20] VITALS: BP 105/61; PULSE 78; RESP 18; TEMP 36.2; O2SAT 92
[2023-02-23] MEDS: oxyCODONE HCl Immed Release 5 MG TABLET PO ×3 (05:24→20:55)
[2023-02-23] MEDS: Omeprazole 40 MG CAPSULE.DR PO (05:24)
[2023-02-23 05:36] LABS: Hematocrit 25.3 % (37.0-47.0); Hemoglobin 8.9 g/dl (12.0-16.0); Mean Corpuscular HGB Conc 35.2 g/dl (31.0-35.0); Mean Corpuscular Hemoglobin 35.6 pg (27.0-33.0); Mean Corpuscular Volume 101.2 fL (80.0-98.0); Mean Platelet Volume 9.7 fL (9.4-12.3); Platelet Count 155 X10*3/uL (160-400); Red Cell Distribution Width 13.2 % (11.0-16.0); White Blood Count 5.9 X10*3/uL (4.8-10.8)
[2023-02-23 05:50] LABS: Anion Gap 11 (12-20); Blood Urea Nitrogen 56 mg/dL (9-16); Calcium 7.9 mg/dL (8.4-10.2); Carbon Dioxide 25 mmol/L (22-29); Chloride 94 mmol/L (96-108); Creatinine Clr Calc Pharmacy 24.7; Estimated Glomerular Filt Rate 36; Glucose Random 108 mg/dL (60-115); Potassium 3.6 mmol/L (3.3-5.1); Sodium 126 mmol/L (135-145)
[2023-02-23 07:26] VITALS: BP 100/56; PULSE 92; RESP 16; TEMP 36; O2SAT 92
[2023-02-23] MEDS: Sodium Chloride Tab 1 GM TABLET 2 GM PO ×2 (08:40→20:55)
[2023-02-23] MEDS: polyethylene glycoL 3350 17 GM POWD.PACK PO (08:40)
[2023-02-23] MEDS: Montelukast Sodium 10 MG TABLET PO (08:40)
[2023-02-23] MEDS: 0.9 % Sodium Chloride Flush 3 ML SYRINGE IVFLUSH ×4 (08:40→20:57)
[2023-02-23] MEDS: Urea 15 GM POWDER 30 GM PO (08:40)
[2023-02-23] MEDS: Metoprolol Succinate ER 25 MG TAB.ER.24H PO (08:40)
[2023-02-23] MEDS: Multivitamin TABLET 1 TAB PO (08:40)
[2023-02-23] MEDS: Docusate Sodium 100 MG CAPSULE PO (08:41)
[2023-02-23] MEDS: Acetaminophen 325 MG TABLET 975 MG PO ×3 (08:41→20:55)
[2023-02-23] MEDS: ondansetron HCL 4 MG/2 ML VIAL IVPUSH (08:50)
[2023-02-23 10:58] LABS: Magnesium 1.2 mg/dL (1.6-2.6)
[2023-02-23] MEDS: Magnesium Sulfate/H2O 2 GM/50 ML PIGGYBACK IV (11:42)
[2023-02-23] MEDS: Magnesium Oxide 400 MG TABLET PO ×2 (11:42→16:17)
[2023-02-23] MEDS: Enoxaparin Sodium 30 MG/0.3 ML SYRINGE SUBCUT (11:42)
--- NOTE | 2023-02-23 12:04 | P.PNOP_ITS ---
Subjective Subjective Date of Service: 02/23/23 Interval history: POD 3 s/p Left hip hemir no overnight events resting in bed Physical Exam Vital Signs: Vital Signs: Last Vital Signs Temp 96.8 F 02/23/23 07:26 Pulse 92 02/23/23 07:26 Resp 16 02/23/23 07:26 BP 100/56 L 02/23/23 07:26 Pulse Ox 92 02/23/23 07:26 O2 Del Method Room Air 02/23/23 07:26 O2 Flow Rate 2.0 02/21/23 08:00 BMI result Body Mass Index 16.9 Const: General: cooperative, healthy appearing, comfortable, no acute distress, well developed and alert Orientation/consciousness: patient oriented x3 HEENT: Head: Yes normal to inspection, Yes normocephalic and Yes atraumatic Eyes: General: appearance normal, both eyes and all related structures Neck: Neck: Yes normal visual inspection and Yes no lymphadenopathy Resp: Effort & Inspection: normal respiratory effort and able to speak in complete sentences Cardio: Rate: regular rate Peripheral pulses: Peripheral pulses 2+ throughout GI: Inspection: Yes normal to inspection Palpation (GI): Soft to palpation Skin: General skin exam: no rashes or lesions noted Neuro: General: patient oriented x3 Extrem: Other: incision clean dry and intact. [place] intact. No erythema or effusion. Calf supple nontender. Neurovascularly intact. Psych: Appearance: grossly normal Mental Status: mental status grossly normal Procedures Date of Service Date of Service: 02/23/23 Progress Note: A&P Assessment and plan (1) Left displaced femoral neck fracture: Status: Acute Assessment and Plan: * Continue pain mgmnt * Aspirin for dvt ppx * PT for LT hip elder * Dispo planning-medical mgmnt Time Spent With Patient Time: Total time managing care of this patient today ____ minutes. Quality Stroke Does the patient have a stroke diagnosis?: No VTE Prior VTE?: No VTE Risk Level:: Surgical - very high VTE Device Contraindication: N/A - Device Ordered VTE Drug Contraindication: Treatment Not Indicated
--- NOTE | 2023-02-23 13:23 | P.PNNP_ITS ---
Subjective Subjective Date of Service: 02/23/23 Interval history: no acute events Physical Exam 2 Vital Signs: Vital Signs: Last Vital Signs Temp 96.8 F 02/23/23 07:26 Pulse 92 02/23/23 07:26 Resp 16 02/23/23 07:26 BP 100/56 L 02/23/23 07:26 Pulse Ox 92 02/23/23 07:26 O2 Del Method Room Air 02/23/23 07:26 O2 Flow Rate 2.0 02/21/23 08:00 BMI result Body Mass Index 16.9 Const: Other: Constitutional : Awake, interactive, not in distress Neck : Normal inspection, Supple Cardiovascular : RRR, no JVP, no lower extremity edema Respiratory : good bilateral air entry, no crackles, wheezes or rhonchi Gastrointestinal: soft, lax, Normal bowel sounds, Non tender Skin : Warm, Dry Steletal: left leg in dressing, no erythema or drainage noted Neurological : Alert & oriented x3, No focal deficit Objective Data Labs 02/23/23 05:28 02/23/23 05:28 Labs: Laboratory Results - last 24 hr 02/22/23 02/22/23 02/23/23 14:21 21:12 05:28 WBC 5.9 RBC 2.50 L Hgb 8.9 L Hct 25.3 L MCV 101.2 H MCH 35.6 H MCHC 35.2 H RDW 13.2 Plt Count 155 L MPV 9.7 Absolute Nucleated RBC 0.000 Nucleated RBC % (auto) 0.0 Sodium 126 L 125 L 126 L Potassium 3.5 3.5 3.6 Chloride 94 L 92 L 94 L Carbon Dioxide 23 24 25 Anion Gap 13 13 11 L BUN 21 H 58 H 56 H Creatinine 1.63 H 1.59 H 1.44 H Estim Creat Clear Calc 21.8 22.3 24.7 Estimated GFR 31 32 36 Random Glucose 101 128 H 108 Calcium 7.7 L 7.3 L 7.9 L D Magnesium 1.2 L* Microbiology Microbiology Results: Microbiology 02/20/23 09:16 Blood - Venous Blood Culture - Preliminary No growth after 48 hours. 02/19/23 Unknown Urine clean catch - Urine britton top Urine Culture - Final Escherichia coli 02/20/23 03:10 Blood - Venous Blood Culture - Preliminary No growth after 48 hours. Procedures Date of Service Date of Service: 02/23/23 Assessment & Plan Assessment and plan (1) Left displaced femoral neck fracture: Status: Acute (2) Hyperkalemia: Status: Acute (3) Hyponatremia: Status: Acute (4) Acute kidney injury: Status: Acute Plan Ms. Leslie Madden is a 68-year-old female with past medical history of hypertension, degenerative disc disease, chronic back pain who presented after a fall with left femoral neck fracture. Course is now complicated by ELIF and Hyponatremia in the setting of hypotension, H/H drop, and hypoxic respiratory failure. 1. ELIF BLCr 0.6mg/dL Cr rising in the setting of renal hypo-perfusion. The patent has had anemia, CT contrast, and hypotension all of which reduce renal perfusion. The CT contrast specifically is a potent renal affarent vasoconstrictor. Renal U/S reassuring against obstruction 2. Pseudohypocalcemia Corrected Ca of 8.7 3. 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 Progress Note: Quality Stroke Does the patient have a stroke diagnosis?: No
--- NOTE | 2023-02-23 14:41 | P.PNIM_ITS ---
Subjective Subjective Date of Service: 02/23/23 Interval History: Seen and evaluated POD 3 Hb stable Low Mg and Na pain under better control BP improved denies any fever, chills Review of Systems Review of Systems: Yes all other systems are reviewed and are negative Physical Exam 2 Vital Signs: Vital Signs: Last Vital Signs Temp 96.8 F 02/23/23 07:26 Pulse 92 02/23/23 07:26 Resp 16 02/23/23 07:26 BP 100/56 L 02/23/23 07:26 Pulse Ox 92 02/23/23 07:26 O2 Del Method Room Air 02/23/23 07:26 O2 Flow Rate 2.0 02/21/23 08:00 BMI result Body Mass Index 16.9 Const: Other: Constitutional : Awake, interactive, not in distress Neck : Normal inspection, Supple Cardiovascular : RRR, no JVP, no lower extremity edema Respiratory : good bilateral air entry, no crackles, wheezes or rhonchi Gastrointestinal: soft, lax, Normal bowel sounds, Non tender Skin : Warm, Dry, surgery area clean and covered w dressing Steletal: left leg in dressing, no erythema or drainage noted Neurological : Alert & oriented x3, No focal deficit Objective Data Active Medications Acetaminophen (Acetaminophen 325 Mg Tablet) 650 mg PO Q6H PRN PRN Reason: Pain, Mild (Pain Scale 1-3) Last Admin: 02/22/23 08:09 Dose: 650 mg Documented By: COTEMA Acetaminophen (Acetaminophen 325 Mg Tablet) 975 mg PO TID JODI Last Admin: 02/23/23 08:41 Dose: 975 mg Documented By: COTEMA Acetaminophen/Codeine Phosphate (Acetaminophen With Codeine # 3 Tablet) 1 tab PO Q8H PRN PRN Reason: Pain, Moderate(Pain Scale 4-6) Last Admin: 02/22/23 01:42 Dose: 1 tab Documented By: OZORALB Albuterol Sulfate (Albuterol Sulfate 90 Mcg 8 Gm Inhaler) 1 puff INHALE QID PRN PRN Reason: Shortness Of Breath Albuterol/Ipratropium (Albuterol/Iprat 2.5/0.5mg 3 Ml Ampul.Neb) 3 ml INHALE RQ6H WHILE AWAKE PRN PRN Reason: Shortness of Breath/Wheezing Docusate Sodium (Docusate Sodium 100 Mg Capsule) 100 mg PO DAILY PRN PRN Reason: Constipation Last Admin: 02/23/23 08:41 Dose: 100 mg Documented By: COTEMA Enoxaparin Sodium (Enoxaparin Sodium 30 Mg/0.3 Ml Syringe) 30 mg SUBCUT Q24H [facility] Last Admin: 02/23/23 11:42 Dose: 30 mg Documented By: COTEMA Fentanyl (Fentanyl Citrate/Pf 100 Mcg/2 Ml Vial) 25 mcg IVPUSH Q5M PRN; Protocol PRN Reason: Pain, Moderate(Pain Scale 4-6) Fluticasone Propionate (Fluticasone Propionate Nasal 16 Gm [place]) 1 spray NOSTRIL-B BID PRN PRN Reason: Allergic Symptoms Ceftriaxone Sodium 1 gm/ (Sodium Chloride) 50 mls @ 100 mls/hr IV Q24H [facility] Last Infusion: 02/22/23 22:28 Dose: Infused Documented By: CHERY Promethazine HCl 12.5 mg/ (Sodium Chloride) 50.5 mls @ 202 mls/hr IV ONCE PRN PRN Reason: Nausea and Vomiting Lisinopril (Lisinopril 10 Mg Tablet) 10 mg PO DAILY [facility]; Protocol Last Admin: 02/20/23 08:38 Dose: 10 mg Documented By: SCOC Magnesium Oxide (Magnesium Oxide 400 Mg Tablet) 400 mg PO BIDPC [facility] Last Admin: 02/23/23 11:42 Dose: 400 mg Documented By: COTEMA Metoprolol Succinate (Metoprolol Succinate Er 25 Mg Tab.Er.24h) 25 mg PO DAILY [facility]; Protocol Last Admin: 02/23/23 08:40 Dose: 25 mg Documented By: COTEMA Montelukast Sodium (Montelukast Sodium 10 Mg Tablet) 10 mg PO DAILY [facility] Last Admin: 02/23/23 08:40 Dose: 10 mg Documented By: COTEMA Multivitamins/Vitamin C (Multivitamin Tablet) 1 tab PO DAILY [facility] Last Admin: 02/23/23 08:40 Dose: 1 tab Documented By: MANANEMA Omeprazole (Omeprazole 40 Mg Capsule.Dr) 40 mg PO DAILY@0630 [facility] Last Admin: 02/23/23 05:24 Dose: 40 mg Documented By: CHERY Ondansetron HCl (Ondansetron Hcl 4 Mg/2 Ml Vial) 4 mg IVPUSH Q8H PRN PRN Reason: Nausea and Vomiting Last Admin: 02/23/23 08:50 Dose: 4 mg Documented By: MANANEMA Oxycodone HCl (Oxycodone Hcl Immed Release 5 Mg Tablet) 5 mg PO Q4H PRN PRN Reason: Pain, Severe (Pain Scale 7-10) Last Admin: 02/23/23 05:24 Dose: 5 mg Documented By: OZORALB Polyethylene Glycol (Polyethylene Glycol 3350 17 Gm Powd.Pack) 17 gm PO DAILY [facility] Last Admin: 02/23/23 08:40 Dose: 17 gm Documented By: MANANEMA Sodium Chloride (0.9 % Sodium Chloride Flush 3 Ml Syringe) 3 ml IVFLUSH [facility] Last Admin: 02/23/23 08:40 Dose: 3 ml Documented By: COTEMA Sodium Chloride (0.9 % Sodium Chloride Flush 3 Ml Syringe) 3 ml IVFLUSH [facility] Last Admin: 02/23/23 08:40 Dose: 3 ml Documented By: SHEYLA Sodium Chloride (Sodium Chloride Tab 1 Gm Tablet) 2 gm PO BID [facility] Last Admin: 02/23/23 08:40 Dose: 2 gm Documented By: SHEYLA Labs 02/23/23 05:28 02/23/23 05:28 Labs: Laboratory Results - last 24 hr 02/22/23 02/22/23 02/23/23 14:21 21:12 05:28 MCV 101.2 H MCH 35.6 H MCHC 35.2 H RDW 13.2 Plt Count 155 L MPV 9.7 Absolute Nucleated RBC 0.000 Nucleated RBC % (auto) 0.0 Anion Gap 13 13 11 L Estim Creat Clear Calc 21.8 22.3 24.7 Estimated GFR 31 32 36 Random Glucose 101 128 H 108 Calcium 7.7 L 7.3 L 7.9 L D Magnesium 1.2 L* Microbiology Microbiology Results: Microbiology 02/20/23 09:16 Blood Culture - Preliminary Blood - Venous No growth after 48 hours. Assessment and Plan (1) Acute kidney injury: Status: Acute (2) Left displaced femoral neck fracture: Status: Acute (3) Hyperkalemia: Status: Acute (4) Hyponatremia: Status: Acute (5) Hypomagnesemia: Status: Acute Plan 68-year-old female active smoker with past medical history of hypertension, degenerative disc disease, chronic back pain comes into the hospital after a fall and having left leg pain found to have fracture # left femoral neck fracture POD 3 OT\PT Lovenox for DVT PPx pain management # acute hypoxic respiratory failure, unclear etiology resolved, CT angiogram no significant findings but minimal atelactasis To do Incentive spirometry # Acute hypomagnesemia To give replacement repeat levels # hyperkalemia resolved # ELIF Cr stable at 1.4 today likely related to hypotension, contrast , meds US negative for obstruction nephrology input appreciated follow BMP # Pseudohypocalcemia Corrected Ca of 8.7 # acute on chronic hyponatremia remains at 126 this morning, baseline early 130s encourage PO intake Give Urea Monitor BMP # GERD continue omeprazole # history of COPD continue home inhalers # hypertension continue antihypertensives DVT prophylaxis: Lovenox Post Op, pending safe discharge plan, pain management and hyponatremia treatment. Time Spent With Patient Time: Total time managing care of this patient today ____ minutes. Quality Stroke Does the patient have a stroke diagnosis?: No VTE Prior VTE?: No VTE Risk Level:: Surgical - very high VTE Device Contraindication: N/A - Device Ordered VTE Drug Contraindication: Treatment Not Indicated
[2023-02-23 15:18] VITALS: BP 106/62; PULSE 78; RESP 18; TEMP 36.3; O2SAT 92
[2023-02-23 19:31] VITALS: BP 104/58; PULSE 77; RESP 16; TEMP 36.8; O2SAT 92
[2023-02-23] MEDS: cefTRIAXone sodium 1 GM in 0.9 % Sodium Chloride 50 ML IV (20:56)
[2023-02-24] VITALS (7 sets, daily range): BP systolic 90–121; BP diastolic 50–80; PULSE 74–84; RESP 16–17; TEMP 36.1–36.5; O2SAT 92–95
[2023-02-24] MEDS: Omeprazole 40 MG CAPSULE.DR PO (05:52)
[2023-02-24 06:12] LABS: Anion Gap 11 (12-20); Blood Urea Nitrogen 68 mg/dL (9-16); Calcium 8.1 mg/dL (8.4-10.2); Carbon Dioxide 27 mmol/L (22-29); Chloride 96 mmol/L (96-108); Creatinine Clr Calc Pharmacy 39.4; Estimated Glomerular Filt Rate > 60; Glucose Random 108 mg/dL (60-115); Magnesium 1.9 mg/dL (1.6-2.6); Potassium 3.7 mmol/L (3.3-5.1); Sodium 130 mmol/L (135-145)
[2023-02-24] MEDS: Acetaminophen 325 MG TABLET 975 MG PO ×3 (07:51→21:28)
[2023-02-24] MEDS: Magnesium Oxide 400 MG TABLET PO ×2 (07:51→17:36)
[2023-02-24] MEDS: Metoprolol Succinate ER 25 MG TAB.ER.24H PO (07:51)
[2023-02-24] MEDS: Multivitamin TABLET 1 TAB PO (07:52)
[2023-02-24] MEDS: oxyCODONE HCl Immed Release 5 MG TABLET PO ×3 (07:52→21:29)
[2023-02-24] MEDS: Montelukast Sodium 10 MG TABLET PO (07:52)
[2023-02-24] MEDS: polyethylene glycoL 3350 17 GM POWD.PACK PO (07:53)
[2023-02-24] MEDS: 0.9 % Sodium Chloride Flush 3 ML SYRINGE IVFLUSH ×2 (07:53→15:43)
[2023-02-24] MEDS: Sodium Chloride Tab 1 GM TABLET 2 GM PO ×2 (07:53→21:28)
[2023-02-24] MEDS: Urea 15 GM POWDER 30 GM PO (10:34)
[2023-02-24] MEDS: Enoxaparin Sodium 30 MG/0.3 ML SYRINGE SUBCUT (10:36)
--- NOTE | 2023-02-24 11:52 | MHC.CLN ---
F/U DIET=REGULAR; 1200 ML FLUID RESTRICTION DUE TO SIADH. DOES NOT WANT NUTRITIONAL SUPPLEMENT. LIKES TO DRINK WATER AND GINGERALE. SUPPLEMENT DISCONTINUED. INTAKE AT MEALS 50-100%. NON SEVERE MALNUTRITION, CACHEXIA AND FAILURE TO THRIVE. FOLLOW FOR INTAKE AND WEIGHT.
--- NOTE | 2023-02-24 12:02 | HO.PM.IMPN ---
Subjective Subjective Date of Service: 02/24/23 Interval History: Seen and evaluated POD 4 improving Mg and Na pain under better control BP soft, dropped with orthostatics denies any fever, chills Review of Systems Review of Systems: Yes all other systems are reviewed and are negative Physical Exam Vital Signs: Vital Signs: Last Vital Signs Temp 96.9 F 02/24/23 07:29 Pulse 83 02/24/23 09:25 Resp 16 02/24/23 07:29 BP 90/50 L 02/24/23 09:25 Pulse Ox 92 02/24/23 07:29 O2 Del Method Room Air 02/24/23 07:29 O2 Flow Rate 2.0 02/21/23 08:00 BMI result Body Mass Index 16.9 Const: Other: Constitutional : Awake, interactive, not in distress Neck : Normal inspection, Supple Cardiovascular : RRR, no JVP, no lower extremity edema Respiratory : good bilateral air entry, no crackles, wheezes or rhonchi Gastrointestinal: soft, lax, Normal bowel sounds, Non tender Skin : Warm, Dry, surgery area clean and covered w dressing Steletal: left leg in dressing, no erythema or drainage noted but the area mildly tender Neurological : Alert & oriented x3, No focal deficit Objective Data Active Medications Acetaminophen (Acetaminophen 325 Mg Tablet) 650 mg PO Q6H PRN PRN Reason: Pain, Mild (Pain Scale 1-3) Last Admin: 02/22/23 08:09 Dose: 650 mg Documented By: COTEMA Acetaminophen (Acetaminophen 325 Mg Tablet) 975 mg PO TID JODI Last Admin: 02/24/23 07:51 Dose: 975 mg Documented By: MOHAMER Acetaminophen/Codeine Phosphate (Acetaminophen With Codeine # 3 Tablet) 1 tab PO Q8H PRN PRN Reason: Pain, Moderate(Pain Scale 4-6) Last Admin: 02/22/23 01:42 Dose: 1 tab Documented By: OZORALB Albuterol Sulfate (Albuterol Sulfate 90 Mcg 8 Gm Inhaler) 1 puff INHALE QID PRN PRN Reason: Shortness Of Breath Albuterol/Ipratropium (Albuterol/Iprat 2.5/0.5mg 3 Ml Ampul.Neb) 3 ml INHALE RQ6H WHILE AWAKE PRN PRN Reason: Shortness of Breath/Wheezing Docusate Sodium (Docusate Sodium 100 Mg Capsule) 100 mg PO DAILY PRN PRN Reason: Constipation Last Admin: 02/23/23 08:41 Dose: 100 mg Documented By: COTEMA Enoxaparin Sodium (Enoxaparin Sodium 30 Mg/0.3 Ml Syringe) 30 mg SUBCUT Q24H [facility] Last Admin: 02/24/23 10:36 Dose: 30 mg Documented By: DONA Fentanyl (Fentanyl Citrate/Pf 100 Mcg/2 Ml Vial) 25 mcg IVPUSH Q5M PRN; Protocol PRN Reason: Pain, Moderate(Pain Scale 4-6) Fluticasone Propionate (Fluticasone Propionate Nasal 16 Gm [place]) 1 spray NOSTRIL-B BID PRN PRN Reason: Allergic Symptoms Ceftriaxone Sodium 1 gm/ (Sodium Chloride) 50 mls @ 100 mls/hr IV Q24H [facility] Last Infusion: 02/23/23 21:48 Dose: Infused Documented By: MICHAEL Promethazine HCl 12.5 mg/ (Sodium Chloride) 50.5 mls @ 202 mls/hr IV ONCE PRN PRN Reason: Nausea and Vomiting Sodium Chloride (Ns) 1,000 mls @ 999 mls/hr IV .Q1H1M [facility] Stop: 02/24/23 13:00 Lisinopril (Lisinopril 10 Mg Tablet) 10 mg PO DAILY [facility]; Protocol Last Admin: 02/20/23 08:38 Dose: 10 mg Documented By: HAILY Magnesium Oxide (Magnesium Oxide 400 Mg Tablet) 400 mg PO BIDPC [facility] Last Admin: 02/24/23 07:51 Dose: 400 mg Documented By: DONA Metoprolol Succinate (Metoprolol Succinate Er 25 Mg Tab.Er.24h) 25 mg PO DAILY [facility]; Protocol Last Admin: 02/24/23 07:51 Dose: 25 mg Documented By: DONA Midodrine (Midodrine Hcl 5 Mg Tablet) 5 mg PO ONCE ONE Stop: 02/24/23 12:01 Montelukast Sodium (Montelukast Sodium 10 Mg Tablet) 10 mg PO DAILY [facility] Last Admin: 02/24/23 07:52 Dose: 10 mg Documented By: DONA Multivitamins/Vitamin C (Multivitamin Tablet) 1 tab PO DAILY [facility] Last Admin: 02/24/23 07:52 Dose: 1 tab Documented By: DONA Omeprazole (Omeprazole 40 Mg Capsule.Dr) 40 mg PO DAILY@0630 [facility] Last Admin: 02/24/23 05:52 Dose: 40 mg Documented By: MICHAEL Ondansetron HCl (Ondansetron Hcl 4 Mg/2 Ml Vial) 4 mg IVPUSH Q8H PRN PRN Reason: Nausea and Vomiting Last Admin: 02/23/23 08:50 Dose: 4 mg Documented By: COTEMA Oxycodone HCl (Oxycodone Hcl Immed Release 5 Mg Tablet) 5 mg PO Q4H PRN PRN Reason: Pain, Severe (Pain Scale 7-10) Last Admin: 02/24/23 07:52 Dose: 5 mg Documented By: DONA Polyethylene Glycol (Polyethylene Glycol 3350 17 Gm Powd.Pack) 17 gm PO DAILY [facility] Last Admin: 02/24/23 07:53 Dose: 17 gm Documented By: DONA Sodium Chloride (0.9 % Sodium Chloride Flush 3 Ml Syringe) 3 ml IVFLUSH [facility] Last Admin: 02/24/23 07:53 Dose: 3 ml Documented By: DONA Sodium Chloride (0.9 % Sodium Chloride Flush 3 Ml Syringe) 3 ml IVFLUSH [facility] Last Admin: 02/24/23 07:54 Dose: Not Given Documented By: DONA Non-Admin Reason: med already given Sodium Chloride (Sodium Chloride Tab 1 Gm Tablet) 2 gm PO BID [facility] Last Admin: 02/24/23 07:53 Dose: 2 gm Documented By: DONA Labs 02/23/23 05:28 02/24/23 05:34 Labs: Laboratory Results - last 24 hr 02/24/23 05:34 Anion Gap 11 L Estim Creat Clear Calc 39.4 Estimated GFR > 60 Random Glucose 108 Calcium 8.1 L Magnesium 1.9 Assessment and Plan (1) Postural hypotension: Status: Acute (2) Hypomagnesemia: Status: Acute (3) Acute kidney injury: Status: Acute (4) Left displaced femoral neck fracture: Status: Acute (5) Hyponatremia: Status: Acute Plan 68-year-old female active smoker with past medical history of hypertension, degenerative disc disease, chronic back pain comes into the hospital after a fall and having left leg pain found to have fracture # Orthostatic hypotension 2/2 BP meds, dehydration, post op give bolus of NS check Hb level Midodrine Hold Metoprolol, Lisinopril was held earlier follow BP # left femoral neck fracture POD 4 OT\PT Lovenox for DVT PPx pain management # Acute on chronic anemia Hb dropped to 9 from baseline around 13 prior to surgery related to surgical loss but has been stable last 3 days repeat levels check Iron stores consider transfusion if continues to drop and check occult stool # acute hypoxic respiratory failure, unclear etiology resolved CT angiogram no significant findings but minimal atelactasis To do Incentive spirometry # Acute hypomagnesemia improved w replacement repeat levels # hyperkalemia resolved # ELIF resolved likely related to hypotension, contrast , meds US negative for obstruction nephrology input appreciated follow BMP # Pseudohypocalcemia Corrected Ca of 8.7 # acute on chronic hyponatremia improved to 130, close to baseline encourage PO intake Give Urea Monitor BMP # GERD continue omeprazole # history of COPD continue home inhalers # hypertension continue antihypertensives DVT prophylaxis: Lovenox Post Op, pending safe discharge plan, pain management and hyponatremia treatment along with postural hypotension Time Spent With Patient Time: Total time managing care of this patient today ____ minutes. Quality Stroke Does the patient have a stroke diagnosis?: No VTE Prior VTE?: No VTE Risk Level:: Surgical - very high VTE Device Contraindication: N/A - Device Ordered VTE Drug Contraindication: Treatment Not Indicated
[2023-02-24 12:39] LABS: Iron 21 mcg/dL (30-160); Percent Iron Saturation 14 % (15-50); Total Iron Binding Capacity 147 mcg/dL (228-428); Unsaturated Iron Binding 126 ug/dL
[2023-02-24] MEDS: Midodrine HCl 5 MG TABLET PO (12:54)
[2023-02-24] MEDS: 0.9 % Sodium Chloride 1,000 ML 999 ML IV (12:55)
[2023-02-24 13:43] LABS: Hematocrit 25.3 % (37.0-47.0); Hemoglobin 8.8 g/dl (12.0-16.0); Mean Corpuscular HGB Conc 34.8 g/dl (31.0-35.0); Mean Corpuscular Hemoglobin 36.5 pg (27.0-33.0); Mean Platelet Volume 9.8 fL (9.4-12.3); Platelet Count 213 X10*3/uL (160-400); Red Blood Count 2.41 X10*6/uL (4.20-5.50); Red Cell Distribution Width 13.2 % (11.0-16.0); White Blood Count 6.2 X10*3/uL (4.8-10.8)
--- NOTE | 2023-02-24 15:50 | MHC.CM.PN ---
surinder rounds possible dc tomorrow plan is for str [place]
--- NOTE | 2023-02-24 16:45 | P.PNNP_ITS ---
Subjective Subjective Date of Service: 02/24/23 Interval history: Seen and examoned, events noted Physical Exam 2 Vital Signs: Vital Signs: Last Vital Signs Temp 97.0 F 02/24/23 16:00 Pulse 74 02/24/23 16:00 Resp 16 02/24/23 16:00 BP 116/57 L 02/24/23 16:00 Pulse Ox 93 02/24/23 16:00 O2 Del Method Room Air 02/24/23 16:00 O2 Flow Rate 2.0 02/21/23 08:00 BMI result Body Mass Index 16.9 Const: Other: Constitutional : Awake, interactive, not in distress Neck : Normal inspection, Supple Cardiovascular : RRR, no JVP, no lower extremity edema Respiratory : good bilateral air entry, no crackles, wheezes or rhonchi Gastrointestinal: soft, lax, Normal bowel sounds, Non tender Skin : Warm, Dry Steletal: left leg in dressing, no erythema or drainage noted Neurological : Alert & oriented x3, No focal deficit Objective Data Labs 02/24/23 13:22 02/24/23 05:34 Labs: Laboratory Results - last 24 hr 02/24/23 02/24/23 05:34 13:22 WBC 6.2 RBC 2.41 L Hgb 8.8 L Hct 25.3 L MCV 105.0 H MCH 36.5 H MCHC 34.8 RDW 13.2 Plt Count 213 D MPV 9.8 Absolute Nucleated RBC 0.000 Nucleated RBC % (auto) 0.0 Sodium 130 L Potassium 3.7 Chloride 96 Carbon Dioxide 27 Anion Gap 11 L BUN 68 H Creatinine 0.90 Estim Creat Clear Calc 39.4 Estimated GFR > 60 Random Glucose 108 Calcium 8.1 L Magnesium 1.9 Iron 21 L TIBC 147 L % Saturation 14 L Unsat Iron Binding 126 Microbiology Microbiology Results: Microbiology 02/20/23 09:16 Blood - Venous Blood Culture - Preliminary No growth after 48 hours. 02/19/23 Unknown Urine clean catch - Urine britton top Urine Culture - Final Escherichia coli 02/20/23 03:10 Blood - Venous Blood Culture - Preliminary No growth after 48 hours. Procedures Date of Service Date of Service: 02/24/23 Assessment & Plan Assessment and plan (1) Left displaced femoral neck fracture: Status: Acute (2) Hyperkalemia: Status: Acute (3) Hyponatremia: Status: Acute (4) Acute kidney injury: Status: Acute Plan Ms. Leslie Madden is a 68-year-old female with past medical history of hypertension, degenerative disc disease, chronic back pain who presented after a fall with left femoral neck fracture. Course is now complicated by ELIF and Hyponatremia in the setting of hypotension, H/H drop, and hypoxic respiratory failure. 1. ELIF: resolved BLCr 0.6mg/dL 2. Pseudohypocalcemia 3. acute on chronic hyponatremia-- intersestiingly Bun/Cr remains high despite off UREA REC; cont PO NaCl tabs; track SNa as outpt ; avoid excess PO fluid intake; gaol is to maontain SNa > 129 Time Spent With Patient Time: Total time managing care of this patient today ____ minutes. Progress Note: Quality Stroke Does the patient have a stroke diagnosis?: No
[2023-02-24] MEDS: Iron Sucrose Complex 200 MG in 0.9 % Sodium Chloride 100 ML 440 MG IV (17:36)
--- NOTE | 2023-02-24 19:03 | P.CDIM_ITS ---
PROVIDER RESPONSE TEXT: To clarify, the appropriate diagnosis supported by the clinical indicators: Other (explain): Hypoxia reported in ED on admission QUERY TEXT: PHYSICIAN'S DOCUMENTATION REQUEST Date of Query: 02/24/2023 10:16 AM EDT Patient Name: Leslie Madden Admit Date: 02/20/2023 Dear Ginna Gandhi, A review of the medical record indicates additional documentation may be needed. Please review below and update the documentation accordingly. Clinical Indicators: Respiratory rate on 02/23/23: 16-18 SAT on 02/23/23: 92% room air Per Hospitalist Progress Note 02/23/23: acute hypoxic respiratory failure, unclear etiology resolved Please clarify the following: Acute Hypoxic Respiratory Failure was present on 02/23/23 admission Acute Hypoxic Respiratory Failure was ruled out Other (explain)Clinically unable to determine (explain)Thank you, Yulia Gonzalez RN Use of terms such as suspected, likely, concern for, or probable (associated with a specific diagnosi s that is being evaluated, monitored, or treated as if it exists) are acceptable and can be coded in the inpatient se tting, when documented at the time of discharge. Please use your independent medical judgment in providing your response. THIS QUERY IS PART OF THE PERMANENT MEDICAL RECORD
[2023-02-24] MEDS: cefTRIAXone sodium 1 GM in 0.9 % Sodium Chloride 50 ML IV (21:28)
[2023-02-25 03:39] VITALS: BP 121/60; PULSE 95; RESP 17; TEMP 36.5; O2SAT 95
[2023-02-25] MEDS: Omeprazole 40 MG CAPSULE.DR PO (06:13)
[2023-02-25 06:57] LABS: Anion Gap 11 (12-20); Blood Urea Nitrogen 59 mg/dL (9-16); Calcium 8.5 mg/dL (8.4-10.2); Carbon Dioxide 28 mmol/L (22-29); Chloride 100 mmol/L (96-108); Estimated Glomerular Filt Rate > 60; Glucose Random 101 mg/dL (60-115); Potassium 3.6 mmol/L (3.3-5.1); Sodium 135 mmol/L (135-145)
[2023-02-25 07:44] VITALS: BP 159/70; PULSE 83; RESP 18; TEMP 36.7; O2SAT 93
[2023-02-25] MEDS: Sodium Chloride Tab 1 GM TABLET 2 GM PO (08:09)
[2023-02-25] MEDS: Multivitamin TABLET 1 TAB PO (08:09)
[2023-02-25] MEDS: polyethylene glycoL 3350 17 GM POWD.PACK PO (08:09)
[2023-02-25] MEDS: Magnesium Oxide 400 MG TABLET PO (08:09)
[2023-02-25] MEDS: 0.9 % Sodium Chloride Flush 3 ML SYRINGE IVFLUSH (08:09)
[2023-02-25] MEDS: oxyCODONE HCl Immed Release 5 MG TABLET PO ×2 (08:10→13:59)
[2023-02-25] MEDS: Montelukast Sodium 10 MG TABLET PO (08:10)
[2023-02-25] MEDS: Acetaminophen 325 MG TABLET 975 MG PO (08:11)
--- NOTE | 2023-02-25 10:23 | P.DS_ITS ---
DS: Providers Provider Date of Service: 02/25/23 Date of admission: 02/20/23 02:02 Primary care physician: Michel Dodd PA-C Consults: 02/22/23 07:56 Consult to Nephrology Routine Consulting Provider: Kyle Rousseau Reason for consultation: ELIF, Hyponatremia for your kind eval and rec DS: Diagnosis Discharge Diagnosis (1) Left displaced femoral neck fracture: Status: Acute (2) Hyperkalemia: Status: Acute (3) Hyponatremia: Status: Acute (4) Acute kidney injury: Status: Acute DS: Summary Hospital Course Hospital Course: The patient underwent a successful left hip hemiarthroplasty, they were transferred to PACU and then to the floor to recover. During their stay, their vitals were stable, afebrile at 97.1. Labs were unremarkable, H/H 8.8/25.3. POD 1 they were started on Aspirin 325mg po bid for DVT ppx, they also received Physical Therapy services twice a day. Prior to discharge, their dressing was changed, incision clean dry and intact, new Aquacel dressing applied and the plan was to be discharged home with VNA services. Time Spent with Patient Time attestation: Total time managing care of this patient today ____ minutes. Discharge coordination time: Greater than 30 minutes Quality: Safe Use of Opioids Does Pt have an Active Cancer Diagnosis on the Problem List?: No Quality: Stroke Does the patient have a stroke diagnosis?: No Physical Exam Vital Signs: Vital Signs: Last Vital Signs Temp 98.0 F 02/25/23 07:44 Pulse 83 02/25/23 07:44 Resp 18 02/25/23 07:44 BP 159/70 H 02/25/23 07:44 Pulse Ox 93 02/25/23 07:44 O2 Del Method Room Air 02/25/23 07:44 O2 Flow Rate 2.0 02/21/23 08:00 BMI result Body Mass Index 16.9 DS: Data Data Completed and Pending Pending studies at discharge: Pending at discharge 02/20/23 15:52 Surgical [PTH] Routine Labs on day of discharge: Laboratory Results - last 24 hr 02/24/23 02/24/23 02/25/23 05:34 13:22 05:42 WBC 6.2 RBC 2.41 L Hgb 8.8 L Hct 25.3 L MCV 105.0 H MCH 36.5 H MCHC 34.8 RDW 13.2 Plt Count 213 D MPV 9.8 Absolute Nucleated RBC 0.000 Nucleated RBC % (auto) 0.0 Sodium 135 Potassium 3.6 Chloride 100 Carbon Dioxide 28 Anion Gap 11 L BUN 59 H Creatinine 0.67 Estim Creat Clear Calc 53.0 Estimated GFR > 60 Random Glucose 101 Calcium 8.5 Iron 21 L TIBC 147 L % Saturation 14 L Unsat Iron Binding 126 Blood Type Antibody Screen 02/25/23 09:05 WBC RBC Hgb Hct MCV MCH MCHC RDW Plt Count MPV Absolute Nucleated RBC Nucleated RBC % (auto) Sodium Potassium Chloride Carbon Dioxide Anion Gap BUN Creatinine Estim Creat Clear Calc Estimated GFR Random Glucose Calcium Iron TIBC % Saturation Unsat Iron Binding Blood Type O Positive Antibody Screen NEGATIVE Preliminary micro results at discharge 02/20/23 09:16 Blood Culture - Preliminary Blood - Venous No growth after 48 hours. Discharge Plan Discharge Anticipated Discharge Date/Time: 02/22/23 17:06 Patient Disposition: er [facility] Discharge Diagnosis: s/p left hip elder Referrals: [facility] [Other] - 1 Week Divina Winchester PA-C [Physician Mop Maker] - 03/13/23 9:30 am (03/13 at 930 ) Discharge Medications: New acetaminophen 325 mg Tablet 650 mg PO Q6H PRN (Reason: Pain, Mild (Pain Scale 1-3)) 30 Days Qty: 420 0RF docusate sodium 100 mg Capsule 100 mg PO DAILY PRN (Reason: Constipation) 30 Days Qty: 60 0RF oxycodone 5 mg Tablet 5 mg PO Q4H PRN (Reason: Pain, Severe (Pain Scale 7-10)) 7 Days Qty: 42 0RF Rx Instructions: Partial Fill upon patient request. enoxaparin 30 mg/0.3 mL Syringe 30 mg subcut Q24H 42 Days Qty: 12.6 0RF Continued montelukast 10 mg tablet 10 mg PO DAILY 90 Days Qty: 90 3RF metoprolol succinate 25 mg tablet extended release 24 hr 25 mg PO DAILY Qty: 90 2RF lisinopril 10 mg tablet 10 mg PO DAILY Qty: 90 2RF (DME) back brace Misc See Rx Instructions .Route Qty: 1 0RF Rx Instructions: As directed omeprazole 40 mg capsule,delayed release(DR/EC) 40 mg PO DAILY@0630 albuterol sulfate 90 mcg/actuation HFA aerosol inhaler 1 puff inhalation QID PRN (Reason: Shortness Of Breath) fluticasone propionate [Flonase Allergy Relief] 50 mcg/actuation spray,suspension 1 spray intranasal BID PRN (Reason: Allergic Symptoms) Rx Instructions: administer into each nostril multivitamin Tablet 1 tab PO DAILY (DME) blood pressure test kit-small Kit See Rx Instructions .Route Qty: 1 0RF Rx Instructions: As directed Discontinued acetaminophen-codeine 300-30 mg tablet 1 tab PO Q8H PRN (Reason: pain) 5 Days Qty: 15 0RF Discharge Orders: Discharge Order (Routine); Ordered 02/25/23 Ordered By: Tima Gonzalez Diet: Advance to usual diet Activity on Discharge: Use cane or walker Stand Alone Forms: Patient Portal Discharge page Care Plan Goals: restore fxn to left hip Health Concerns: none Plan of Treatment: Physical Therapy for total hip arthroplasty: gait training, ROM, strength Limit stair climbing No showering, no tub bath-keep dressing clean, dry and intact No driving x6 weeks Continue Lovenox tabs once a day x 4 weeks Follow up with [facility] in 2 weeks Assessment: stable for d/c
[2023-02-25] MEDS: Enoxaparin Sodium 30 MG/0.3 ML SYRINGE SUBCUT (10:28)
--- NOTE | 2023-02-25 10:49 | MHC.CM.PN ---
pt dcd to [facility] today at 230 jennifer dominguez notified
== END 2023-02-25 16:03 | disposition skilled nursing facility (03) | DRG 522 ==
LOC: HO.ED 02-20 01:41 → HO.EDOVER 02-20 02:09 → HO.S3 02-20 17:08
PROVIDERS: Nurse Practitioner Family; Orthopaedic Surgery; Student in an Organized Health Care Education/Training Program; Admitting Provider Internal Medicine; Emergency Provider Student in an Organized Health Care Education/Training Program; PCP Physician Assistant; Visit Provider Internal Medicine
PROC: 0SRB0J9 Replacement of Left Hip Joint with Synthetic Substitute, Cemented, Open Approach (ICD-10-PCS; CPT 27125; principal; 2023-02-20 14:40)
DX: S72.002A Fracture of unspecified part of neck of left femur, initial encounter for closed fracture (principal); E87.1 Hypo-osmolality and hyponatremia; N39.0 Urinary tract infection, site not specified; J98.11 Atelectasis; N17.9 Acute kidney failure, unspecified; W19.XXXA Unspecified fall, initial encounter; F41.1 Generalized anxiety disorder; I10 Essential (primary) hypertension; I95.1 Orthostatic hypotension; E87.5 Hyperkalemia; E86.0 Dehydration; J44.9 Chronic obstructive pulmonary disease, unspecified; D64.89 Other specified anemias; M85.80 Other specified disorders of bone density and structure, unspecified site; N14.11 Contrast-induced nephropathy; T50.8X5A Adverse effect of diagnostic agents, initial encounter; K21.9 Gastro-esophageal reflux disease without esophagitis; F32.9 Major depressive disorder, single episode, unspecified; F17.210 Nicotine dependence, cigarettes, uncomplicated; Z71.6 Tobacco abuse counseling; Z79.51 Long term (current) use of inhaled steroids; Z79.899 Other long term (current) drug therapy
CPT/HCPCS: 36415; 71275; 72170; 73502; 73564; 73630; 73700; 76775; 80048; 80053; 80076; 81001; 82550; 83540; 83735; 83930; 83935; 84300; 85014; 85018; 85025; 85027; 86850; 86900; 86901; 87040; 87086; 87088; 87186; 88305; 88311; 93005; 94640; 97110; 97116; 97161; 97166; 97535; 99285; C1713; C1776; J0131; J0613; J0690; J0696; J1650; J1756; J2371; J2405; J3010; J3370; J3475; Q9967

== ENCOUNTER → 2023-02-20 02:02 | Outpatient (BNV) | payer MEDICARE, SELFPAY | PROVIDERS: Admitting Provider Internal Medicine; Emergency Provider Student in an Organized Health Care Education/Training Program; PCP Physician Assistant; Visit Provider Internal Medicine | DX: S72.002A Fracture of unspecified part of neck of left femur, initial encounter for closed fracture (principal); N17.9 Acute kidney failure, unspecified; E87.5 Hyperkalemia; E87.1 Hypo-osmolality and hyponatremia | CPT/HCPCS: 99223; 99232; 99233; 99239; 99499 ==

== ENCOUNTER → 2023-02-20 02:02 | Outpatient (BNV) | payer MEDICARE, SELFPAY | PROVIDERS: Admitting Provider Internal Medicine; Emergency Provider Student in an Organized Health Care Education/Training Program; PCP Physician Assistant; Visit Provider Physician Assistant | DX: S72.002A Fracture of unspecified part of neck of left femur, initial encounter for closed fracture (principal) | CPT/HCPCS: 27236; 99024; 99223 ==

== ENCOUNTER 2023-03-13 09:12 | Outpatient (REF) | payer MEDICARE, SELFPAY | END 2023-03-13 09:13 | disposition home or self-care (01) | LOC: HO.HOSX 09:12 | PROVIDERS: Visit Provider Physician Assistant | DX: Z13.89 Encounter for screening for other disorder (principal) ==

== ENCOUNTER 2023-03-13 14:53 | Emergency (ER) | payer MEDICARE, SELFPAY ==
--- NOTE | ~2023-03-13 | XR_ITS ---
EXAMINATION: XR HIP, LEFT CLINICAL INFORMATION: Pain. COMPARISON: CT left femur 02/19/2023. TECHNIQUE: Two views of the left hip. FINDINGS: Left hip hemiarthroplasty. No periprosthetic fracture or radiographic evidence of hardware complication. No acute fractures or subluxation. Persistent soft tissue swelling along the lateral aspect of the hip with overlying surgical skin marce. XR/XR hip LT min 2V IMPRESSION: 1. Left hip hemiarthroplasty without evidence of hardware complication. 2. No acute fractures or subluxation. 3. Persistent soft tissue swelling around the left hip.
--- NOTE | ~2023-03-13 | US_ITS ---
EXAMINATION: US VENOUS ULTRASOUND WITH DOPPLER LOWER EXTREMITY, BILATERAL CLINICAL INFORMATION: History of left total hip replacement Swelling COMPARISON: None available. TECHNIQUE: Ultrasound of the deep veins is performed from the hip to the calf with compression sonography and color and pulse Doppler assessment. Spectral analysis with color-flow imaging is performed. FINDINGS: RIGHT: There is normal venous compression and respiratory variation and augmented flow. The visualized common femoral vein, superficial femoral vein, profunda femoral vein, popliteal vein, and the trifurcation region shows no evidence of deep venous thrombosis. LEFT: There is normal venous compression and respiratory variation and augmented flow. The visualized common femoral vein, superficial femoral vein, profunda femoral vein, popliteal vein, and the trifurcation region shows no evidence of deep venous thrombosis. Enlarged benign-appearing lymph node is seen on the left, measuring 1.9 x 0.8 x 1.5 cm. Also seen is a 3.9 x 1.3 x 0.8 cm enlarged lymph node which is probably benign. US/US venous duplex LE BI IMPRESSION: No DVT demonstrated in the right and left lower extremity. Enlarged lymph nodes on the left, one clearly benign and the other probably benign.
[2023-03-13 15:00] VITALS: BP 177/96; PULSE 85; RESP 18; TEMP 36.7; O2SAT 100; BMI 16.5
--- NOTE | 2023-03-13 15:10 | PC.NURSE ---
pt a&ox3. respirations even and unlabored. pt brought in by ambulance from [facility] for increasing left hip pain. pt reports having hip surgery here at [facility] on february 20 after a fall. pt reports 3 days after surgey she has noticed bilateral edema of the lower extremities. pt has pitting edema bilaterally noted of the lower extremities, positive pedal pulses. pt reports needing marce removed today but did that get them removed. pt incision on the left hip is red and warm to touch without puss noted. pt states she ambulates well with walker.
[2023-03-13 15:39] LABS: MANUAL DIFF FLAG NO
[2023-03-13 15:40] LABS: Basophils Percent Auto 0.8 % (0-2); Eosinophils Absolute Auto 0.1 X10*3/uL (0.0-0.4); Eosinophils Percent Auto 1.3 % (0-4); Hematocrit 29.5 % (37.0-47.0); Hemoglobin 9.8 g/dl (12.0-16.0); Imm Gran Abs Auto 0.02 X10*3/uL (0.00-0.03); Imm Gran Pct Auto 0.4 % (0.0-0.4); Lymphocytes Percent Auto 21.7 % (20-40); Mean Corpuscular HGB Conc 33.2 g/dl (31.0-35.0); Mean Corpuscular Volume 105.4 fL (80.0-98.0); Mean Platelet Volume 8.8 fL (9.4-12.3); Monocytes Absolute Auto 0.4 X10*3/uL (0.1-1.2); Monocytes Percent Auto 9.3 % (2-11); Neutrophils Absolute Auto 3.2 x10*3/uL (2.0-8.3); Neutrophils Percent Auto 66.5 % (45-73); Platelet Count 379 X10*3/uL (160-400); Red Cell Distribution Width 14.1 % (11.0-16.0); White Blood Count 4.7 X10*3/uL (4.8-10.8)
--- NOTE | 2023-03-13 15:42 | ED_ITS ---
HPI - Extremity Problem General Chief complaint: Extremity Injury, Upper Stated complaint: L HIP PAIN S/P SURG 02/20,BLE SWELLINGX3 WEEKS History of Present Illness HPI Narrative: Patient is a 16-year-old female status post hip surgery done on February. Presented today with having continuing swelling to the left leg. Also complaining of Lasix not helping. Patient denies any fever chills. Been able to ambulate without any difficulties. No chest pain or shortness of breath. On prophylactic doses Lovenox. No chest pain or shortness of breath no diaphoresis. Related Data Home Medications Medication Instructions Recorded Confirmed albuterol sulfate 90 mcg/actuation 1 puff inhalation QID PRN 10/21/22 02/19/23 aerosol inhaler Shortness Of Breath fluticasone propionate 50 1 spray intranasal BID PRN 10/21/22 02/19/23 mcg/actuation nasal Allergic Symptoms spray,suspension (Flonase Allergy Relief) multivitamin 1 tab PO DAILY 10/21/22 02/19/23 omeprazole 40 mg capsule,delayed 40 mg PO DAILY@0630 10/21/22 02/19/23 release Previous Rx's Medication Instructions Recorded montelukast 10 mg tablet 10 mg PO DAILY 90 days #90 tabs 02/19/22 blood pressure test kit-small #1 ea 03/11/22 metoprolol succinate 25 mg 25 mg PO DAILY #90 tabs 07/08/22 tablet,extended release 24 hr lisinopril 10 mg tablet 10 mg PO DAILY #90 tabs 08/06/22 back brace #1 ea 08/20/22 acetaminophen 325 mg tablet 650 mg (2 x 325 mg) PO Q6H PRN 02/22/23 Pain, Mild (Pain Scale 1-3) 30 days #420 tabs docusate sodium 100 mg capsule 100 mg PO DAILY PRN Constipation 02/22/23 30 days #60 caps enoxaparin 30 mg/0.3 mL 30 mg (0.3 mL) subcut Q24H 42 days 02/22/23 subcutaneous syringe #12.6 mL oxycodone 5 mg tablet 5 mg PO Q4H PRN Pain, Severe (Pain 02/22/23 Scale 7-10) 7 days #42 tabs Allergies Allergy/AdvReac Type Severity Reaction Status Date / Time cat dander Allergy Unknown Unknown Verified 03/13/23 15:07 morphine Allergy Unknown unknown Verified 03/13/23 15:07 seasonal allergies Allergy Unknown Unknown Uncoded 10/21/22 10:32 Review of Systems 2 Review of Systems: Positive swelling to the left leg. Positive redness to the wound with the left hip incision site. [facility] Past Medical History Attestation statement: The following information was validated with the patient. [facility] Narrative: Positive hip swelling Medical History Acute kidney injury Hyperkalemia Hyponatremia Acute respiratory failure with hypoxia Femoral neck fracture GERD (gastroesophageal reflux disease) JANAY (generalized anxiety disorder) IBS (irritable bowel syndrome) MDD (major depressive disorder) Pulmonary nodule Current smoker HTN (hypertension) Surgical History History of cervical discectomy Family History Family History Father Lung cancer Brain cancer Mother CVD (cardiovascular disease) Breast cancer Son In good health Brother In good health Social History Social History Household Members: None Household Members Other:: self Housing: House Do you presently have visiting nurse or other home services: No Alcohol intake: current Alcohol intake frequency: a few times a month Patient Tobacco Use Status: Current everyday Tobacco user Tobacco use type: Cigarette Cigarette Packs Per Day: 0.5 Cigarettes Per Day: 10.0 Smoked in Last 30 Days: Yes e-Cigarette/Vaping Use: Never Used Use of substances other than those prescribed or required for medical reasons: No Advance Directives: Yes Advance Directives on File: Yes Advance Directives Date on File: 10/21/22 service: No Current occupational status: retired Cognitive needs: No Hearing needs: No Vision needs: No Physical Exam 2 Vital Signs: Vital Signs: Last Vital Signs Temp 98.1 F 03/13/23 15:00 Pulse 85 03/13/23 15:00 Resp 18 03/13/23 15:00 BP 177/96 H 03/13/23 15:00 Pulse Ox 100 03/13/23 15:00 O2 Del Method Room Air 03/13/23 15:00 BMI result Body Mass Index 16.5 Appearance: Alert. Oriented X3. No acute distress. Eyes: Pupils equal, round and reactive to light. ENT: Pharynx normal. Neck: Normal inspection. Neck supple. No lymph nodes noted. No crepitus CVS: Normal heart rate and rhythm. Pulses normal. Normal S1 and S2 Respiratory: No respiratory distress. Breath sounds normal. No Wheezing. No rales Abdomen: Soft and nontender. No rigidity. No distention. good BS x4 Skin: Skin warm and dry. Normal skin color. Normal skin turgor. Extremities: Positive left lower extremity edema. The wound appears intact. There is minimal redness no discharge surrounding the incision site. Distal pulses 2+. There is no calf tenderness. Calf size is approximately 2 cm larger on the left versus the right at 10 cm below the tibial tuberosity. Neurovascular intact to all extremities. No Lacerations. Neuro: Oriented X 3. No motor deficit. No sensory deficit. Moving all extermities. No slurred speech Medical Decision Making Medical Decision Making [facility] Narrative: I reviewed patient's x-ray of the hip. There is no gross fracture noted. Doppler of the bilateral lower extremity per Radiology reading there is no DVT. Patient well appearing no distress. Neurologically intact. The wound looks intact. Case was discussed with orthopedics on-call Dr. Butler on-call for Dr. Woods, felt comfortable follow-up tomorrow on an outpatient basis. Patient is in stable condition. 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 03/13/23 15:31 03/13/23 15:53 Labs: Lab Results 03/13/23 03/13/23 Range/Units 15:31 15:53 WBC 4.7 L (4.8-10.8) X10*3/uL RBC 2.80 L (4.20-5.50) X10*6/uL Hgb 9.8 L (12.0-16.0) g/dl Hct 29.5 L (37.0-47.0) % MCV 105.4 H (80.0-98.0) fL MCH 35.0 H (27.0-33.0) pg MCHC 33.2 (31.0-35.0) g/dl RDW 14.1 (11.0-16.0) % Plt Count 379 D (160-400) X10*3/uL MPV 8.8 L (9.4-12.3) fL Immature Gran % (Auto) 0.4 (0.0-0.4) % Neut % (Auto) 66.5 (45-73) % Lymph % (Auto) 21.7 (20-40) % [place] % (Auto) 9.3 (2-11) % Eos % (Auto) 1.3 (0-4) % Baso % (Auto) 0.8 (0-2) % Lymph # (Auto) 1.0 L (1.2-4.9) X10*3/uL [place] # (Auto) 0.4 (0.1-1.2) X10*3/uL Eos # (Auto) 0.1 (0.0-0.4) X10*3/uL Baso # (Auto) 0.0 (0.0-0.2) X10*3/uL Abs Immat Gran (auto) 0.02 (0.00-0.03) X10*3/uL Absolute Neuts (auto) 3.2 (2.0-8.3) x10*3/uL Absolute Nucleated RBC 0.000 (0.0-0.012) X10*3/uL Nucleated RBC % (auto) 0.0 (0.0-0.2) /100WBC PT 11.5 (11.1-13.3) SEC INR 0.9 (0.9-1.1) Sodium 132 L 131 L (135-145) mmol/L Potassium 3.9 3.9 (3.3-5.1) mmol/L Chloride 94 L 94 L (96-108) mmol/L Carbon Dioxide 25 25 (22-29) mmol/L Anion Gap 17 16 (12-20) BUN 11 10 (9-16) mg/dL Creatinine 0.68 0.69 (0.5-1.4) mg/dL Estim Creat Clear Calc 54.6 53.8 Estimated GFR > 60 > 60 Random Glucose 105 104 (60-115) mg/dL Lactic Acid 0.7 (0.5-2.0) mmol/L Calcium 9.3 D 9.6 (8.4-10.2) mg/dL Total Bilirubin 0.3 0.3 (0.0-1.0) mg/dL Direct Bilirubin 0.1 (0.0-0.5) mg/dL AST 18 19 (5-31) U/L ALT 5 6 (0-31) U/L Alkaline Phosphatase 104 105 (39-117) U/L B-Natriuretic Peptide 583 H (<100) pg/mL Total Protein 7.5 7.6 (6.5-8.0) g/dL Albumin 4.0 4.0 (3.5-5.0) g/dL Urine Color Yellow Urine Appearance Clear Urine pH 7.0 (5.0-9.0) Ur Specific [place] 1.015 (1.005-1.025) Urine Protein 300 (3+) H (Neg-Trace) mg/dL Urine Glucose (UA) Negative (Negative) mg/dL Urine Ketones Negative (Negative) mg/dL Urine Blood Small (1+) H (Negative) Urine Nitrite Positive H (Negative) Ur Leukocyte Esterase Trace H (Negative) Urine RBC 0-2 (0-2) /HPF Urine WBC 6-10 H (0-5) /HPF Ur Squamous Epith Cells 0-2 (0-2) /HPF Urine Bacteria 4+ (None Seen) Hyaline Casts 0-2 (0-2) /LPF Independent Interpretation I performed an independent interpretation of an: Plain X-Ray (X-ray the hip was grossly negative.) and Ultrasound (No gross evidence of DVT) Radiology Impression Discussion of test interpretation with radiology: I have reviewed the radiologist's reading. Independent Historian Clinical information obtained from an independent historian. History obtained from or confirmed by: EMS External Record Review Patient's ortho record was reviewed Chronic Conditions Hip pain Discharge Plan Discharge Clinical Impression: Left leg swelling Patient Disposition: Home, Self-Care Instructions: Leg Edema (ED) Prescriptions: No Action montelukast 10 mg tablet 10 mg PO DAILY 90 Days Qty: 90 3RF metoprolol succinate 25 mg tablet extended release 24 hr 25 mg PO DAILY Qty: 90 2RF lisinopril 10 mg tablet 10 mg PO DAILY Qty: 90 2RF (DME) back brace Misc See Rx Instructions .Route Qty: 1 0RF Rx Instructions: As directed acetaminophen 325 mg Tablet 650 mg PO Q6H PRN (Reason: Pain, Mild (Pain Scale 1-3)) 30 Days Qty: 420 0RF docusate sodium 100 mg Capsule 100 mg PO DAILY PRN (Reason: Constipation) 30 Days Qty: 60 0RF oxycodone 5 mg Tablet 5 mg PO Q4H PRN (Reason: Pain, Severe (Pain Scale 7-10)) 7 Days Qty: 42 0RF Rx Instructions: Partial Fill upon patient request. enoxaparin 30 mg/0.3 mL Syringe 30 mg subcut Q24H 42 Days Qty: 12.6 0RF omeprazole 40 mg capsule,delayed release(DR/EC) 40 mg PO DAILY@0630 albuterol sulfate 90 mcg/actuation HFA aerosol inhaler 1 puff inhalation QID PRN (Reason: Shortness Of Breath) fluticasone propionate [Flonase Allergy Relief] 50 mcg/actuation spray,suspension 1 spray intranasal BID PRN (Reason: Allergic Symptoms) Rx Instructions: administer into each nostril multivitamin Tablet 1 tab PO DAILY (DME) blood pressure test kit-small Kit See Rx Instructions .Route Qty: 1 0RF Rx Instructions: As directed Referrals: Marquis Naqvi MD [Physician] - 03/14/23
[2023-03-13 15:50] LABS: Appearance Urine Clear; Color Urine Yellow; Glucose Urine UA Negative (Negative); Leukocyte Esterase Urine Trace (Negative); Nitrite Urine Positive (Negative); Specific Gravity - Urine 1.015 (1.005-1.025); UMIC TRIGGER UACC YES; Urine Blood Small (1+) (Negative); Urine Ketones Negative (Negative); Urine Protein 300 (3+) mg/dL (Neg-Trace)
[2023-03-13 15:59] LABS: Alanine Aminotransferase 5 U/L (0-31); Alkaline Phosphatase 104 U/L (39-117); Anion Gap 17 (12-20); Aspartate Amino Transferase 18 U/L (5-31); Bilirubin Total 0.3 mg/dL (0.0-1.0); Blood Urea Nitrogen 11 mg/dL (9-16); Calcium 9.3 mg/dL (8.4-10.2); Carbon Dioxide 25 mmol/L (22-29); Chloride 94 mmol/L (96-108); Creatinine Clr Calc Pharmacy 54.6; Estimated Glomerular Filt Rate > 60; Glucose Random 105 mg/dL (60-115); Potassium 3.9 mmol/L (3.3-5.1); Sodium 132 mmol/L (135-145); Total Protein 7.5 g/dL (6.5-8.0)
[2023-03-13 16:08] LABS: INTERNATIONAL NORM RATIO 0.9 (0.9-1.1); Prothrombin Time 11.5 SEC (11.1-13.3)
[2023-03-13 16:18] LABS: Alanine Aminotransferase 6 U/L (0-31); Alkaline Phosphatase 105 U/L (39-117); Anion Gap 16 (12-20); Aspartate Amino Transferase 19 U/L (5-31); Bilirubin Direct 0.1 mg/dL (0.0-0.5); Bilirubin Total 0.3 mg/dL (0.0-1.0); Blood Urea Nitrogen 10 mg/dL (9-16); Calcium 9.6 mg/dL (8.4-10.2); Carbon Dioxide 25 mmol/L (22-29); Chloride 94 mmol/L (96-108); Creatinine Clr Calc Pharmacy 53.8; Estimated Glomerular Filt Rate > 60; Glucose Random 104 mg/dL (60-115); Lactic Acid 0.7 mmol/L (0.5-2.0); Potassium 3.9 mmol/L (3.3-5.1); Sodium 131 mmol/L (135-145); Total Protein 7.6 g/dL (6.5-8.0)
[2023-03-13 16:23] LABS: B Type Natriuretic Peptide 583 pg/mL (<100)
[2023-03-13 17:09] LABS: Bacteria Urine 4+ (None Seen); Hyaline Casts Urine 0-2 /LPF (0-2); RBC Urine 0-2 /HPF (0-2); Squamous Epithelial Cell Urine 0-2 /HPF (0-2); UACC Culture Trigger YES
--- NOTE | 2023-03-13 18:00 | MHC.EDTECH ---
Dr. Butler called back from ortho. to speak with Dr. HODGE @ [phone]
[2023-03-13 18:31] VITALS: BP 187/104; PULSE 83; RESP 18; O2SAT 100
== END 2023-03-13 20:17 | disposition home or self-care (01) ==
PROVIDERS: Emergency Provider Emergency Medicine Emergency Medical Services; PCP Physician Assistant
DX: M79.89 Other specified soft tissue disorders (principal); R60.0 Localized edema; N39.0 Urinary tract infection, site not specified; B96.4 Proteus (mirabilis) (morganii) as the cause of diseases classified elsewhere; I10 Essential (primary) hypertension; F17.210 Nicotine dependence, cigarettes, uncomplicated; Z79.899 Other long term (current) drug therapy; Z79.01 Long term (current) use of anticoagulants
CPT/HCPCS: 36415; 73502; 80048; 80053; 80076; 81001; 83605; 83880; 85025; 85610; 87040; 87086; 87088; 87186; 93970; 99284

== ENCOUNTER 2023-03-21 08:17 | Outpatient (REF) | payer MEDICARE, SELFPAY ==
--- NOTE | ~2023-03-21 | XR_ITS ---
EXAMINATION: XR PELVIS CLINICAL INFORMATION: Pain. COMPARISON: Prior radiographs, most recently 03/13/2023. TECHNIQUE: 2 AP views of the pelvis are submitted. FINDINGS: Prosthetic components of the left total hip arthroplasty are appropriately aligned. No periprosthetic fracture. There is heterotopic ossification in the lateral left thigh soft tissues. The right acetabular joint space is well-maintained, and the right femoral head is smooth. The sacroiliac joints are symmetric and well-maintained. The pubic symphysis is intact. No foreign body is seen. XR/XR pelvis 1-2V IMPRESSION: 1. There is an intact left hip total arthroplasty, without hardware failure loosening noted. 2. No unusual degenerative change is seen of the right hip. 3. The sacroiliac joints are symmetric and well-maintained, and the pubic symphysis is intact.
== END 2023-03-21 08:18 | disposition home or self-care (01) ==
LOC: HO.HOSX 08:17
PROVIDERS: Visit Provider Physician Assistant
DX: Z96.642 Presence of left artificial hip joint (principal)
CPT/HCPCS: 72170

== ENCOUNTER 2023-03-21 08:23 | Outpatient (AMB) | payer MEDICARE, SELFPAY ==
--- NOTE | 2023-03-21 08:30 | MHC.OFFVIS ---
Intake Vital Signs 03/21/23 08:31 Height 5 ft 4 in Weight 96 lb BMI 16.5 Intake Visit Reasons: PO - left hip elder, 02/23/23 DR Torres Note: Leslie is a 68 year old female who presents today for a post op appointment s/p left hip elder, 02/23/23 Patient reports noticing a lot of swelling in both legs and feet. She states that is doing okay but needs a little assistant operations manager when coming in. Allergies cat dander Allergy (Unknown, Verified 03/21/23 08:30) Unknown morphine Allergy (Unknown, Verified 03/21/23 08:30) unknown seasonal allergies Allergy (Unknown, Uncoded 10/21/22 10:32) Unknown HPI PO - left hip elder, 02/23/23 DR SPANN Details 68-year-old female who presents in the office today 1 month status post left hip hemiarthroplasty, which was performed on 02/20/[address] Naqvi. The patient reports noticing a lot of edema in the bilateral lower extremities. She states she has been doing okay. [facility] Medical History Acute kidney injury Hyperkalemia Hyponatremia Acute respiratory failure with hypoxia Femoral neck fracture GERD (gastroesophageal reflux disease) JANAY (generalized anxiety disorder) IBS (irritable bowel syndrome) MDD (major depressive disorder) Pulmonary nodule Current smoker HTN (hypertension) Surgical History History of cervical discectomy Family History Father Lung cancer Brain cancer Mother CVD (cardiovascular disease) Breast cancer Son In good health Brother In good health Social History Household Members: None Household Members Other:: self Housing: House Do you presently have visiting nurse or other home services: No Alcohol intake: current Alcohol intake frequency: a few times a month Patient Tobacco Use Status: Current everyday Tobacco user Tobacco use type: Cigarette Cigarette Packs Per Day: 0.5 Cigarettes Per Day: 10.0 e-Cigarette/Vaping Use: Never Used Advance Directives Date on File: 10/21/22 service: No Current occupational status: retired Cognitive needs: No Hearing needs: No Vision needs: No Review of Systems Const All systems reviewed & are unremarkable except as noted in HPI and below Physical Exam Vital Signs: BMI result Body Mass Index 16.5 Const General: cooperative, healthy appearing and no acute distress Resp Effort & Inspection: normal respiratory effort and able to speak in complete sentences Cardio Rate: regular rate Peripheral pulses: Peripheral pulses 2+ throughout GI Palpation (GI): Soft to palpation Skin Lesions: no lesions Rashes: no rashes Extrem Other: Left hip: Incision site is clean, dry, and intact; well approximated and healing. [place] intact. No signs of infection. Full ROM. NVI. Assessment & Plan Assessment & Plan (1) History of left hip hemiarthroplasty: Comment: 02/20/2023 Dr. Naqvi Code(s): Z96.642 - Presence of left artificial hip joint Plan Ms. Madden is a 68-year-old female who presents in the office today 1 month status post left hip hemiarthroplasty, which was performed on 02/20/[address] Naqvi. The patient reports noticing a lot of edema in the bilateral lower extremities. She states she has been doing okay. [place] were removed and steri-stripes were applied. The patient has VNA coming to her house to assist with physical therapy. She states she had to cancel yesterday?s appointment due to having a different appointment to attend. I would like for her to focus on posterior precautions. In the event she continue to have difficulty with scheduling she can contact the office and we will aid in facilitating this for her. Follow up will be in 4 weeks, or sooner if needed. X-rays of the left hip obtained while in the office today and reviewed by me, Divina Winchester PA-C, revealed intact orthopedic hardware with routine healing. Orders: Orders XR pelvis 1-2V Today M25.559 - Pain in unspecified hip Patient Instructions: Scribed for Divina Winchester PA-C by Belinda Pretty medical records field technician, on 03/21/2023 at 8:27 am, EST. Coding Level of Care Code Global (36801) Diagnoses History of left hip hemiarthroplasty Z96.642
[2023-03-21 08:31] VITALS: BMI 16.5
== END 2023-03-21 09:05 | disposition home or self-care (01) ==
PROVIDERS: PCP Physician Assistant; Visit Provider Physician Assistant
DX: Z96.642 Presence of left artificial hip joint (principal)
CPT/HCPCS: 99024

== ENCOUNTER 2023-04-14 09:14 | Outpatient (AMB) | payer MEDICARE, SELFPAY ==
[2023-04-14 09:45] VITALS: RESP 12; BMI 15.8
--- NOTE | 2023-04-14 09:45 | A.OFFVIS_ITS ---
Intake Vital Signs 04/14/23 09:45 Height 5 ft 4 in Weight 92 lb BMI 15.8 Blood Pressure Location Rt brachial Position Sitting Respiration 12 Pulse Source Pulse Oximeter Intake Visit Reasons: Wedge Compression Fx, First Lumbar Vertebra/Conf. Allergies cat dander Allergy (Unknown, Verified 04/14/23 09:48) Unknown morphine Allergy (Unknown, Verified 04/14/23 09:48) unknown seasonal allergies Allergy (Unknown, Uncoded 04/14/23 09:48) Unknown Medication List - Last Reconciled 04/14/23 by Ofelia Clarke LPN acetaminophen 650 mg (2 x 325 mg) PO Q6H PRN 30 days albuterol sulfate 90 mcg/actuation 1 puff inhalation QID PRN alendronate 70 mg PO QWEEK 12 weeks back brace As directed blood pressure test kit-small As directed fluticasone propionate 50 mcg/actuation (Flonase Allergy Relief) 1 spray intranasal BID PRN lisinopril 10 mg PO DAILY metoprolol succinate ER 25 mg PO DAILY montelukast 10 mg PO DAILY 90 days multivitamin 1 tab PO DAILY omeprazole 40 mg PO DAILY oxycodone 5 mg PO Q4H PRN 7 days HPI Wedge Compression Fx, First Lumbar Vertebra/Conf. HPI Details 68-year-old female who presents today to the office for an evaluation of wedge compression fracture at the first lumbar vertebrae. She is presenting with pain in her back and hips that has been ongoing for many years. She is unable to sleep normally or do her daily activities. Movements make it worse. The patient is rated at 6?8/10 in intensity. She has been on disability since 2009. She has pain in her back and leg from walking, which improved with resting, sitting, and bending on the shopping cart. The patient has a history of osteoporosis and chronic back pain. She had taken alendronate once a week for 12 weeks that was prescribed by [facility]. The patient sustained a fall about 6 months ago when she was taking out the trash and slipped backwards, fell on her buttocks, and her back hit some stairs. She had a significant amount of pain and still does in her very low lumbar sacral area. She has difficulty mobilizing. She has been experiencing numbness in her feet and occasionally gets radicular symptoms down her legs. She had a fall on 02/18/23 and subsequently developed left leg pain. She states that she chronically has balance issues and, as a result, has had multiple falls. She underwent left hip hemiarthroplasty, which was performed on 02/20/[address] Naqvi. She states that her legs are ?shaky?. She developed swelling in her leg post-surgery and was seen in the hospital. She currently has mild swelling in her leg. [facility] Medical History Acute kidney injury Hyperkalemia Hyponatremia Acute respiratory failure with hypoxia Femoral neck fracture GERD (gastroesophageal reflux disease) JANAY (generalized anxiety disorder) IBS (irritable bowel syndrome) MDD (major depressive disorder) Pulmonary nodule Current smoker HTN (hypertension) Surgical History History of cervical discectomy Family History Father Lung cancer Brain cancer Mother CVD (cardiovascular disease) Breast cancer Son In good health Brother In good health Social History Household Members: None Household Members Other:: self Housing: House Do you presently have visiting nurse or other home services: No Alcohol intake: current Alcohol intake frequency: a few times a month Patient Tobacco Use Status: Current everyday Tobacco user Tobacco use type: Cigarette Cigarette Packs Per Day: 0.5 Cigarettes Per Day: 10.0 e-Cigarette/Vaping Use: Never Used Advance Directives Date on File: 10/21/22 service: No Current occupational status: retired Cognitive needs: No Hearing needs: No Vision needs: No Review of Systems Const All systems reviewed & are unremarkable except as noted in HPI and below Physical Exam Vital Signs: Last Vital Signs Resp 12 04/14/23 09:45 BMI result Body Mass Index 15.8 General: Appears afebrile. Alert and oriented. Mood and affect appropriate. Follows and participates in conversation appropriately. Respiratory effort is unlabored. Able to transition from sit to stand unassisted. Ambulates with bilaterally normal heel strike and toe off. Forward flexion and extension reproduce pain in the lower back. She is able to stand on her toes and heels. Results Reviewed Results Reviewed: 03/21/23: XR PELVIS FINDINGS: Prosthetic components of the left total hip arthroplasty are appropriately aligned. No periprosthetic fracture. There is heterotopic ossification in the lateral left thigh soft tissues. The right acetabular joint space is well-m aintained, and the right femoral head is smooth. The sacroiliac joints are symmetric and well-maintained. The pubic symphysis is intact. No foreign body is seen. IMPRESSION: 1. There is an intact left hip total arthroplasty, without hardware failure loosening noted. 2. No unusual degenerative change is seen of the right hip. 3. The sacroiliac joints are symmetric and well-maintained, and the pubic symphysis is intact. 03/13/23: US VENOUS ULTRASOUND WITH DOPPLER LOWER EXTREMITY, BILATERAL FINDINGS: RIGHT: There is normal venous compression and respiratory variation and augmented flow. The visualized common femoral vein, superficial femoral vein, profunda femoral vein, popliteal vein, and the trifurcation region shows no evidence of deep venous thrombosis. LEFT: There is normal venous compression and respiratory variation and augmented flow. The visualized common femoral vein, superficial femoral vein, profunda femoral vein, popliteal vein, and the trifurcation region shows no evidence of deep venous thrombosis. Enlarged benign-appearing lymph node is seen on the left, measuring 1.9 x 0.8 x 1.5 cm. Also seen is a 3.9 x 1.3 x 0.8 cm enlarged lymph node which is probably benign. IMPRESSION: No DVT demonstrated in the right and left lower extremity. Enlarged lymph nodes on the left, one clearly benign and the other probably benign. 01/24/23: MR LUMBAR SPINE WITHOUT CONTRAST FINDINGS: VERTEBRAL BODIES AND PARASPINAL STRUCTURES: There is a sigmoid scoliosis which is convex to the right in the upper lumbar region and toward the left at L4. The study redemonstrates mild grade 1 anterolistheses of L3 on L4 and L4 on L5. There is a retrolisthesis of L1 on L2. There is multilevel narrowing of intervertebral disc height, most severe at L3-L4 and L4-L5. There are extensive degenerative endplate contour changes with predominantly edematous endplate signal at this level. Edematous signal is noted in the bilateral pedicles of L4 and L5. The study demonstrates a compression fracture of the body of L1 superiorly with loss of approximately 50% vertebral body height anteriorly. This vertebra has slightly hyperintense STIR and hyperintense T1 signal, consistent with an acute to subacute compression fracture. There is slight loss of vertebral body height of T12 toward the right. There is invagination of discs into the superior endplate of T12 and inferior endplate of L1. There is also increased STIR signal with low T1 signal in the superior body of S2, which is consistent with age-indeterminate sequelae of trauma. Vertebral body heights are maintained at other levels. There is abnormal signal in the bilateral sacral ala. Overall, marrow signal is slightly heterogenous. The visualized retroperitoneal and pelvic structures are unremarkable. CONUS MEDULLARIS AND CAUDA EQUINA: Normal, terminating at the level of L1. The lower thoracic spinal cord appears normal. The cauda equina nerve roots and filum terminale appear normal. 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 SPINAL LEVELS: T12-L1: There is mild bilateral facet arthropathy. There is a central and left- sided disc protrusion which flattens the ventral thecal sac. There is posterior protrusion of the body of L1 into the spinal canal centrally and toward the left which compresses the thecal sac with no significant central stenosis. The neural foramina are patent bilaterally. L1-L2: There is mild to moderate bilateral facet arthropathy. There is a broad- based posterior disc protrusion which flattens the ventral thecal sac but there is no central stenosis. There are left greater than right foraminal disc protrusions without definite exiting nerve root impingement. L2-L3: There is moderate bilateral facet arthropathy with facet joint effusions and ligamenta flava hypertrophy. There is dorsal epidural lipomatosis. There is a broad-based posterior disc protrusion flattens the ventral thecal sac and is mild narrowing of the subarticular recesses. There is no central stenosis. The neural foramina are patent bilaterally. L3-L4: There is markedly severe right and severe left facet arthropathy with ligamenta flava hypertrophy and facet joint effusions. There is a small synovial cyst off the right facet joint posteriorly. There is unroofing of the disc as a result the of anterolisthesis. There are left and right foraminal disc protrusions with impingement on the exiting L3 nerve roots. There is marked narrowing of the right subarticular recess. There is a 3 mm synovial cyst anteromedially off the right facet joint. There is moderate to severe central stenosis. L4-L5: There is markedly severe right and severe left facet arthropathy with ligamenta flava hypertrophy and facet joint effusions. There is unroofing of the disc as a result of the anterolisthesis. There is a right foraminal disc protrusion impinging on the exiting right L4 nerve root. There is narrowing of the subarticular recesses bilaterally, and there is mild central stenosis. L5-S1: There is mild bilateral facet arthropathy. There is shallow posterior disc protrusion with mild flattening of the ventral thecal sac but there is no central stenosis. No foraminal nerve root impingement. IMPRESSION: 1. There is an acute to subacute compression fracture of the body of L1 with loss of approximately 50% vertebral body height. There is mild loss of vertebral body height of T12 toward the right. There is abnormal signal in the body of S2 which is consistent with age-indeterminate sequelae of trauma. 2. There is a sigmoid scoliosis, and there are grade 1 anterolistheses of L3 on L4 and L4 on L5. 3. At L3-L4 there is markedly severe right and severe left facet arthropathy. There are bilateral foraminal disc protrusions impinging on the exiting L3 nerve roots. There is marked narrowing of the right subarticular recess and there is moderate to severe central stenosis. 4. At L4-L5 there is markedly severe right and severe left facet arthropathy. There is a right foraminal disc protrusion impinging on the exiting right L4 nerve root. There is mild central stenosis. 5. Spondylitic and facet arthropathic changes are demonstrated at multiple other levels as described above. 02/05/23: BONE DENSITOMETRY FINDINGS: LEFT FEMUR, NECK: Current: BMD 0.485 g/cm2, Z-score -1.9, T-score -4.0, osteoporosis. Baseline: BMD 0.882 g/cm2. LEFT FEMUR, TOTAL: Current: BMD 0.391 g/cm2, Z-score -3.0, T-score -4.9, osteoporosis, 57.5% decrease from baseline (<5% change is not significant). Baseline: BMD 0.920 g/cm2. AP SPINE L1-L2 (excluding L3 and L4): The data of L1-L4 has been changed to exclude the L3 and L4 vertebral bodies, because degenerative sclerosis at these levels may cause overestimation of lumbar spine density. Current: BMD 1.163 g/cm2, Z-score 2.4, T-score 0.0, normal, 5.6% increase from baseline (<5% change is not significant). Baseline: BMD 1.101 g/cm2. IDENTIFIED RISK FACTORS: Early menopause, secondary osteoporosis, family history (parental hip fracture), low calcium intake, low body weight, height loss, 3 or more alcoholic drinks per day, tobacco use (current smoker), history of fracture (adult), glucocorticoids (chronic). HISTORY OF FRACTURE: Spine. Elbow. MEDICATIONS: None listed. IMPRESSION: 1. DIAGNOSIS: Severe osteoporosis based on the lowest T-score value of -4.9 in the total femur and history of fracture applying World Health Organization criteria. 2. 10-YEAR FRACTURE RISK PREDICTION, FRAX: According to the guidelines, FRAX calculation should only be performed on patients in the osteopenia bone density category. Therefore, FRAX was not performed on this patient. 3. Treatment Recommendations: NOF guidelines recommend consideration for treatment in postmenopausal women and men age 50 and older presenting with the following: -A hip or vertebral (clinical or morphometric) fracture. -T-score less than or equal to -2.5 at the femoral neck or spine after appropriate evaluation to exclude secondary causes. -Low bone mass at the hip or spine and a 10-year fracture probability by FRAX of greater than or equal to 3% for hip fracture or greater than or equal to 20% for major osteoporotic fracture based on the [place] adapted WHO algorithm. 12/20/22: XR LUMBOSACRAL SPINE FINDINGS: 5 nonrib-bearing lumbar-type vertebral bodies. Age-indeterminate wedge compression deformity of the L1 vertebral body new from prior with 50% height loss and no significant bony retropulsion. Levoconvex curvature of the lumbar spine. Grade 1 anterolisthesis of L3 on L4. No instability on flexion extension views. Moderate multilevel degenerative disc disease similar to prior. Paravertebral soft tissues are unremarkable. IMPRESSION: 1. Age-indeterminate wedge compression deformity of the L1 vertebral body new from prior with 50% height loss and no significant bony retropulsion. 2. Levoconvex curvature of the lumbar spine. Grade 1 anterolisthesis of L3 on L4. No instability on flexion extension views. 3. Moderate multilevel degenerative disc disease similar to prior. Assessment & Plan Assessment & Plan (1) Age related osteoporosis: Code(s): M81.0 - Age-related osteoporosis without current pathological fracture Qualifiers: Presence of current pathological fracture: with current pathological fracture Encounter type: subsequent encounter Fracture healing: with routine healing Qualified Code(s): M80.00XD - Age-related osteoporosis with current pathological fracture, unspecified site, subsequent encounter for fracture with routine healing (2) Lumbar spondylosis: Code(s): M47.816 - Spondylosis without myelopathy or radiculopathy, lumbar region (3) Spinal stenosis of lumbar region with neurogenic claudication: Code(s): M48.062 - Spinal stenosis, lumbar region with neurogenic claudication (4) Vertebrogenic low back pain: Code(s): M54.51 - Vertebrogenic low back pain Plan Discussed MILD procedure, facet injections and aspiration and BVN ablation as possible treatment options. Will schedule her for a bilateral minimal invasive lumbar decompression at L2-3, L3-4, and L4-5 followed by L3-L4-L5 BVN ablation. Then we will consider a right L3-4 facet injection/aspiration. Discussed the risks and benefits of the procedures with the patient in detail. All questions were answered. The patient is on board with the plan. Justification for interventional therapy: ? Patient with average pain > 6/10 ? Patient has exhausted conservative therapy We also discussed the need for ongoing therapy for osteoporosis to minimize the risk of future compression fractures for severe osteoporosis. The patient may benefit from endocrinology input gven the severity of her disease. She also tells me that she has episodes of lower extremity swelling, so she may need optimization for hypertension in the setting of elevated blood pressures noted in the clinic today. Scribed for Dr. Grewal by Manpreet Gao, medical office manager, on 04/14/2023. I, Dr. Grewal, have personally reviewed and agree with the information entered by the scribe. Medications: Discontinued lisinopril Discontinued Reason: Duplicate 10 mg PO DAILY 90 tabs 2RF Coding Level of Care Code New Pt Level 4 (60185) Diagnoses Age-related osteoporosis with current pathological fracture with routine healing, subsequent encounter M80.00XD Presence of current pathological fracture: with current pathological fracture Encounter type: subsequent encounter Fracture healing: with routine healing Lumbar spondylosis M47.816 Spinal stenosis of lumbar region with neurogenic claudication M48.062 Vertebrogenic low back pain M54.51
== END 2023-04-14 10:19 | disposition home or self-care (01) ==
PROVIDERS: PCP Physician Assistant; Visit Provider Internal Medicine
DX: M80.00XD Age-related osteoporosis with current pathological fracture, unspecified site, subsequent encounter for fracture with routine healing (principal); M47.816 Spondylosis without myelopathy or radiculopathy, lumbar region; M48.062 Spinal stenosis, lumbar region with neurogenic claudication; M54.51 Vertebrogenic low back pain
CPT/HCPCS: 99204

== ENCOUNTER → 2023-04-14 09:14 | Outpatient (BNVA) | payer MEDICARE, SELFPAY | PROVIDERS: PCP Physician Assistant; Visit Provider Internal Medicine | DX: M48.062 Spinal stenosis, lumbar region with neurogenic claudication (principal); M47.816 Spondylosis without myelopathy or radiculopathy, lumbar region; M54.51 Vertebrogenic low back pain; M80.00XD Age-related osteoporosis with current pathological fracture, unspecified site, subsequent encounter for fracture with routine healing | CPT/HCPCS: 99202 ==

== ENCOUNTER 2023-04-15 11:15 | Outpatient (REF) | payer MEDICARE, SELFPAY | END 2023-04-15 11:16 | disposition home or self-care (01) | LOC: HO.HOSX 11:15 | PROVIDERS: Visit Provider Physician Assistant | DX: Z13.89 Encounter for screening for other disorder (principal) ==

== ENCOUNTER 2023-05-13 10:40 | Outpatient (REF) | payer MEDICARE, SELFPAY | END 2023-05-13 10:41 | disposition home or self-care (01) | LOC: HO.HOSX 10:40 | PROVIDERS: Visit Provider Physician Assistant | DX: Z13.89 Encounter for screening for other disorder (principal) ==

== ENCOUNTER 2023-06-30 11:06 | Outpatient (AMB) | payer OTHER, SELFPAY ==
--- NOTE | 2023-06-30 11:08 | MHC.PC.OV ---
Vital Signs 06/30/23 11:09 Height 5 ft 4 in Weight 91 lb 6 oz BMI 15.7 BP 136/90 H Blood Pressure Location Lt brachial Position Sitting Pulse 90 Pulse Source Pulse Oximeter Pulse Oximetry (%) 88 L Oxygen Delivery Method Room Air Intake Visit Reasons: 5 m follow up Intake Note: Pt is here for routine F/U. Pt cocern today is SOB, wheezing in the left lower lobe for about 1 month. Reconditioning Associate Required: No Accompanied by: Self / Same As Patient Allergies cat dander Allergy (Unknown, Verified 06/30/23 11:23) Unknown morphine Allergy (Unknown, Verified 06/30/23 11:23) unknown seasonal allergies Allergy (Unknown, Uncoded 06/30/23 11:09) Unknown Medication List - Last Reconciled 06/30/23 by Michel Dodd PA-C acetaminophen 650 mg (2 x 325 mg) PO Q6H PRN 30 days albuterol sulfate 90 mcg/actuation 1 puff inhalation QID PRN alendronate 70 mg PO QWEEK 12 weeks back brace As directed blood pressure test kit-small As directed fluticasone propionate 50 mcg/actuation (Flonase Allergy Relief) 1 spray intranasal BID PRN lisinopril 20 mg PO DAILY 90 days metoprolol succinate ER 25 mg PO DAILY montelukast 10 mg PO DAILY 90 days multivitamin 1 tab PO DAILY omeprazole 40 mg PO DAILY oxycodone 5 mg PO Q4H PRN 7 days Tobacco use date assessed: 06/30/23 Fall risk assessment: 1 Fall in past year Last assessed Fall Risk: 06/30/23 Dental Screening Dental Screen Date: 06/30/23 Did you have a dental visit in the last 12 months?: Yes Did you have a dental problem in the last 6 months where you did not have access to dental care?: No Was dental information given to patient?: Patient has dentist HPI 5 m follow up HPI Details Patient is a 68-year-old female here today for follow-up visit. Patient's past medical history significant for hypertension, COPD, tobacco use disorder, recent lumbar vertebral compression fracture, chronic allergic rhinitis, low BMI. She reports over the last 2 weeks having cough, nasal congestion, shortness of breath. Cough somewhat productive at times. She denies any fevers or chills. She feels he may have a viral illness. Today in office oxygen saturation at 88%. [facility] Medical History Acute kidney injury Hyperkalemia Hyponatremia Acute respiratory failure with hypoxia Femoral neck fracture GERD (gastroesophageal reflux disease) JANAY (generalized anxiety disorder) IBS (irritable bowel syndrome) MDD (major depressive disorder) Pulmonary nodule Current smoker HTN (hypertension) Surgical History History of cervical discectomy Family History Father Lung cancer Brain cancer Mother CVD (cardiovascular disease) Breast cancer Son In good health Brother In good health Social History Household Members: None Household Members Other:: self Housing: House Do you presently have visiting nurse or other home services: No Alcohol intake: current Alcohol intake frequency: a few times a month Patient Tobacco Use Status: Current everyday Tobacco user Tobacco use type: Cigarette Cigarette Packs Per Day: 0.5 Cigarettes Per Day: 10.0 e-Cigarette/Vaping Use: Never Used Advance Directives Date on File: 10/21/22 service: No Current occupational status: retired Cognitive needs: No Hearing needs: No Vision needs: No Questionnaire PHQ-9 Over the last 2 weeks, how often have you been bothered by any of the following problems? 1. Little interest or pleasure in doing things: not at all 2. Feeling down, depressed, or hopeless: not at all 3. Trouble falling or staying asleep, or sleeping too much: not at all 4. Feeling tired or having little energy: not at all 5. Poor appetite or overeating: not at all 6. Feeling bad about yourself - or that you are a failure or have let yourself or your family down: not at all 7. Trouble concentrating on things, such as reading the newspaper or watching television: not at all 8. Moving or speaking so slowly that other people could have noticed. Or the opposite - being so fidgety or restless that you have been moving around a lot more than usual: not at all 9. Thoughts that you would be better off or of hurting yourself in some way: not at all Total score: 0 Depression Screening Interpretation: Negative Depression Screening Done: Yes 84521 - PHQ-9 Billing: Yes Source: Developed by Drs. Sal Porras, Alma Marks, Amado Kaur and colleagues, with an educational katya from [employer]. Thrive Questionnaire Date Thrive assessed: 06/30/23 I am a: Patient What is your living situation today?: I have a steady place to live Within the past 12 months, did the food you bought not last and you didn't have the money to get more?: Never true Within the past 12 months, did you worry whether your food would run out before you got money to buy more?: Never true Do you have trouble paying for medicines?: No Do you have trouble getting transportation to medical appointments?: No Do you have trouble paying your heating and electricity bill?: No Do you have trouble taking care of your child, family member or friend?: No Do you have trouble with day-to-day activities such as bathing, preparing meals, shopping, managing finances, etc.?: No Are you currently unemployed and looking for a job?: No Are you interested in more education?: No Please select the resources that you would like help with: None AUDIT C Alcohol Use Questionnaire (AUDIT-C) 1. How often do you have a drink containing alcohol?: 2-4 times a month 2. How many drinks containing alcohol do you have on a typical day when you are drinking?: 1 or 2 3. How often do you have six or more drinks on one occasion?: Never Total Score: 2 JANAY-7 AMB Questionnaire JANAY-7 Date JANAY - 7 assessed: 06/30/23 Feeling nervous, anxious, or on edge: 3 = Nearly every day Not being able to stop or control worryin = Nearly every day Worrying too much about different things: 3 = Nearly every day Trouble relaxin = Nearly every day Being so restless that it is hard to sit still: 2 = More than half the days Becoming easily annoyed or irritable: 3 = Nearly every day Feeling afraid as if something awful might happen: 3 = Nearly every day Total JANAY-7 score (0-4 normal; 5-9 mild; 10-14 moderate; 15-21 severe): 20 Source: Developed by Drs. Sal Porras, Alma Marks, Amado Kaur and colleagues, with an educational katya from [employer]. JANAY-7 Assessment Billing JANAY-7 Assessment Tool: JANAY-7 Assessment 79041 Review of Systems Const Denies headache(s) Eyes Denies loss of vision ENT Denies vertigo, Denies dizziness, Denies headache(s) and Denies sore throat Card Denies chest pain, Denies leg edema and Denies lightheadedness Resp Denies cough, Denies hemoptysis and Denies wheezing GI Denies abdominal pain, Denies melena, Denies constipation, Denies diarrhea and Denies vomiting Denies urinary frequency, Denies dysuria and Denies urinary urgency Musc Denies arthralgias, Denies joint swelling, Denies numbness and Denies tingling Neuro Denies Abnormal speech present, Denies behavioral changes, Denies vertigo, Denies dizziness, Denies headache(s), Denies loss of vision, Denies memory loss, Denies numbness and Denies tingling Psych Denies anxiety, Denies behavioral changes, Denies depression, Denies memory loss and Denies panic attacks Jefe/Lymph Denies easy bleeding and Denies easy bruising Aller/Immun Denies wheezing Physical exam (Primary Care) Vital Signs: Last Vital Signs Pulse 90 06/30/23 11:09 BP 136/90 H 06/30/23 11:09 Pulse Ox 88 L 06/30/23 11:09 Oxygen Delivery Method Room Air 06/30/23 11:09 BMI result Body Mass Index 15.7 Tobacco/Smoking Status: Tobacco use Status Tobacco use date assessed 06/30/23 06/30/23 11:10 Patient Tobacco Use Status Current everyday Tobacco 06/30/23 11:10 Tobacco use type Cigarette 06/30/23 11:10 e-Cigarette/Vaping Use Never Used 06/30/23 11:10 Are you ready to quit: No Tobacco cessation counseling provided: Yes Items discussed: Nicotine replacement Relapse Prevention: discussed the importance of a supportive environment, discussed negative mood or depression after quitting, weight gain after smoking is common and discussed dietary, exercise and/or lifestyle changes Number of minutes spent counselin CPT code: 04873 - 4-10 Minutes PHQ-9: PHQ-9 Score PHQ-9: Total score 0 06/30/23 11:27 Depression Screening Interpretation: Negative Thrive Assessment: Date of Thrive Assessment Date Thrive assessed 06/30/23 06/30/23 11:10 Const General: healthy appearing, no acute distress, alert and awake Nutritional Appearance: well nourished Orientation/consciousness: oriented to person, oriented to place and oriented to time HENMT Ears: TM's normal bilaterally General nose exam: Normal nasal mucous membranes and turbinates present Eyes Conjunctivae: conjunctivae normal Sclerae: sclerae normal Pupils: Equal, round and reactive pupils present Neck Neck: Yes no lymphadenopathy and Yes no JVD Thyroid: Thyroid normal Carotids: no bruits Resp Effort & Inspection: normal respiratory effort and not tachypneic Auscultation: no crackles, no rales, no rhonchi and no wheezes Cardio Rate: regular rate Rhythm: regular rhythm Heart sounds: no murmurs and normal S1 and S2 GI Palpation (GI): Soft to palpation, nontender, no hepatomegaly and no splenomegaly Auscultation: normal bowel sounds Skin General skin exam: no rashes or lesions noted and dry skin Neuro General: oriented to person, oriented to place and oriented to time Cranial nerves: Yes Equal, round and reactive pupils present Speech: No Abnormal speech present Gait exam (Neuro): Normal gait present Motor exam (neuro): no tremor noted Extrem Right upper extremity: full ROM Left upper extremity: full ROM Right lower extremity: full ROM; no edema Left lower extremity: full ROM; no edema Psych Mental Status: mental status grossly normal Speech and movement: Normal speech and movement present Affect: normal affect Attitude: cooperative Thought process: Normal thought process present Office Procedures Nebulizer Treatment Nebulizer Treatment Details: Medication used- 0.008% albuterol solution Pretreatment O2- 88% Symptoms pretreatment- cough and shortness of breath Posttreatment SpO2- 89% Symptoms post treatment- unchanged 70175-Gudduhnrf/MDI RX initial, or Nebulizer Subsequent Treatment Assessment and Plan Assessment & Plan (1) COPD exacerbation: Code(s): J44.1 - Chronic obstructive pulmonary disease with (acute) exacerbation Plan: Patient's signs symptoms are most consistent with a COPD exacerbation. Does not appear to be in any respiratory distress currently. We did discuss possibly being seen at the ER for full workup though patient declines due to long wait times. Patient does feel comfortable with being supplied with prednisone taper and a antibiotic. (2) Hypoxia: Code(s): R09.02 - Hypoxemia Plan: Noted oxygen saturation 88%. Post treatment oxygen saturation 89% Tried nebulizer today in office without much improvement in symptoms. (3) Tobacco dependence: Code(s): F17.200 - Nicotine dependence, unspecified, uncomplicated Plan: Patient does understand she needs to quit smoking . Offered nicotine replacement though patient like to hold off on starting nicotine replacement at this time. Orders: Orders Complete Blood Count no Diff Today J44.1 - Chronic obstructive pulmonary disease with (acute) exacerbation SARS-CoV2/FLU/RSV Today J44.1 - Chronic obstructive pulmonary disease with (acute) exacerbation Basic Metabolic Panel Today J44.1 - Chronic obstructive pulmonary disease with (acute) exacerbation Magnesium Today J44.1 - Chronic obstructive pulmonary disease with (acute) exacerbation Medications: New prednisone Take 3 tablets x3 days , 2 tabs x 3 days , 1 tab x 3 days 10 mg PO DIRECTED 9 days 18 tabs 0RF J44.1 - Chronic obstructive pulmonary disease with (acute) exacerbation azithromycin For 250 mg dose pack: take 500 mg today (day 1), then 250 mg for 4 days (days 2-5) PO 6 tabs 0RF J44.1 - Chronic obstructive pulmonary disease with (acute) exacerbation guaifenesin ER (Mucinex) 600 mg PO BID 10 days 20 tabs 0RF J44.1 - Chronic obstructive pulmonary disease with (acute) exacerbation Coding Level of Care Code Est Pt Level 3 (76220) Diagnoses COPD exacerbation J44.1 Hypoxia R09.02 Tobacco dependence F17.200 CPT Codes Nebulizer Treatment - Nebulizer Treatment, initial or subsequent: 16677-Rxsqrllry/MDI RX initial, or Nebulizer Subsequent Treatment ([id number]) Additional Codes JANAY-7 Assessment Billing - JANAY-7 Assessment Tool: JANAY-7 Assessment 41137 ([id number]) Vital Signs *Quality* - CPT code: 53802 - 4-10 Minutes ([id number])
[2023-06-30 11:09] VITALS: BP 136/90; PULSE 90; O2SAT 88; BMI 15.7
== END 2023-06-30 11:47 | disposition home or self-care (01) ==
PROVIDERS: PCP Physician Assistant; Visit Provider Physician Assistant
DX: J44.1 Chronic obstructive pulmonary disease with (acute) exacerbation (principal); R09.02 Hypoxemia; F17.210 Nicotine dependence, cigarettes, uncomplicated
CPT/HCPCS: 94640; 99213; J7613

== ENCOUNTER 2023-06-30 11:58 | Outpatient (REF) | payer OTHER, SELFPAY ==
[2023-06-30 13:13] LABS: Hematocrit 42.3 % (37.0-47.0); Hemoglobin 14.8 g/dl (12.0-16.0); Mean Corpuscular Hemoglobin 34.7 pg (27.0-33.0); Mean Corpuscular Volume 99.1 fL (80.0-98.0); Platelet Count 398 X10*3/uL (160-400); Red Blood Count 4.27 X10*6/uL (4.20-5.50); Red Cell Distribution Width 13.2 % (11.0-16.0); White Blood Count 8.3 X10*3/uL (4.8-10.8)
[2023-06-30 13:55] LABS: Influenza A PCR NEGATIVE (Negative); Influenza B PCR NEGATIVE (Negative); Resp Syncy Virus RNA Qual PCR POSITIVE (Negative); SARS COV2 PCR INHOUSE NEGATIVE (Negative)
[2023-06-30 13:59] LABS: Anion Gap 17 (12-20); Blood Urea Nitrogen 10 mg/dL (9-16); Calcium 9.6 mg/dL (8.4-10.2); Carbon Dioxide 30 mmol/L (22-29); Chloride 90 mmol/L (96-108); Estimated Glomerular Filt Rate > 60; Glucose Random 118 mg/dL (60-115); Magnesium 1.4 mg/dL (1.6-2.6); Potassium 5.3 mmol/L (3.3-5.1); Sodium 132 mmol/L (135-145)
== END 2023-06-30 11:59 | disposition home or self-care (01) ==
LOC: HO.LAB 11:58
PROVIDERS: PCP Physician Assistant; Visit Provider Physician Assistant
DX: Z11.52 Encounter for screening for COVID-19 (principal); J44.1 Chronic obstructive pulmonary disease with (acute) exacerbation
CPT/HCPCS: 0241U; 80048; 83735; 85027

== ENCOUNTER 2023-08-03 12:24 | Inpatient (IN) | payer MEDICARE, SELFPAY ==
--- NOTE | ~2023-08-03 | XR_ITS ---
EXAMINATION: XR CHEST CLINICAL INFORMATION: Chest pain COMPARISON: 02/20/2023 TECHNIQUE: Frontal view of the chest was obtained. FINDINGS: Lungs appear hyperinflated, suggesting underlying COPD. No focal consolidation is seen. No evidence of pneumothorax, pleural effusion, or pulmonary edema. Cardiac size is within normal limits. Calcification is present at the aortic arch. No acute osseous findings are seen. XR/XR chest 1V IMPRESSION: No acute cardiopulmonary findings. Hyperinflated lungs suggesting COPD.
--- NOTE | ~2023-08-03 | CT_ITS ---
EXAMINATION: CT HEAD WITHOUT CONTRAST CLINICAL INFORMATION: Headache COMPARISON: None available. TECHNIQUE: Contiguous axial imaging was performed from the skull base to vertex without intravenous administration of contrast. This CT examination was performed using dose optimization techniques as appropriate, variously including the following: *Automated exposure control *Adjustment of mA and/or kV according to patient size (this includes techniques or standardized protocols for targeted exams where dose is matched to indication/reason for exam; i.e. extremities or head) *Use of iterative reconstruction technique DLP: 676 mGy-cm FINDINGS: There is no evidence of acute intracranial hemorrhage or territorial infarction. No abnormal mass effect or midline shift is seen. [place] to white matter differentiation is well preserved. No extra-axial fluid collections are identified. The ventricles are normal in size. There is no abnormal attenuation within the brain parenchyma. The osseous structures and soft tissues are normal. The mastoid air cells and visualized portions of the paranasal sinuses are well-aerated. CT/CT head/brain wo IV con IMPRESSION: No acute intracranial pathology.
--- NOTE | ~2023-08-03 | NM_ITS ---
Lexiscan Myocardial perfusion study Indication: Chest pain, assess for coronary disease and ischemia Technique: The patient was brought in for a Lexiscan perfusion study on 08/05/2023 and was injected 0.4 mg of Lexiscan intravenously. Within a minute of this injection 25 mCi of sestamibi was given intravenously. Images were obtained using the SPECT gamma camera interlaced with the gating device. Images were obtained in supine position. Resting perfusion study was performed on 08/06/2023. Patient was administered 25 mCi of sestamibi intravenously at rest. Images were then obtained in supine position. Images were processed with the software and compared side to side in short axis, horizontal long axis and vertical long axis views. Total DLP 72mGy-cm. Findings: Raw acquisition reviewed. The stress perfusion study showed no significant perfusion abnormality. Both uncorrected as well as CT attenuation corrected images were reviewed. The gated study shows normal LV systolic function with calculated LVEF of >70%. LV cavity is normal in size. The gated study shows normal wall thickening and contraction of segments. Resting study shows no significant perfusion abnormality. Gating at rest reveals normal wall motion with ejection fraction at >70%. The findings are consistent with no clear reversible or fixed perfusion defects. NM/NM king perf SPECT rest & str Impression: 1. Myocardial perfusion imaging study shows normal myocardial perfusion. 2. Gated LVEF is > 70% during stress and rest. 3. Transient ischemic dilatation not present. EKG component of the test reported separately.
[2023-08-03 13:14] VITALS: BP 182/104; PULSE 107; RESP 16; TEMP 36.9; O2SAT 94; BMI 16.3
--- NOTE | 2023-08-03 13:22 | ED.GENADULT ---
HPI - General Adult General Chief complaint: General Medical Stated complaint: RSV few weeks, swelling in legs/feet Time Seen by Provider: 08/03/23 13:42 Related Data Home Medications Medication Instructions Recorded Confirmed fluticasone propionate 50 1 spray intranasal BID PRN 10/21/22 08/03/23 mcg/actuation nasal Allergic Symptoms spray,suspension (Flonase Allergy Relief) multivitamin 1 tab PO DAILY 10/21/22 08/03/23 magnesium oxide 400 mg PO DAILY 08/03/23 08/03/23 Previous Rx's Medication Instructions Recorded blood pressure test kit-small #1 ea 03/11/22 back brace #1 ea 08/20/22 acetaminophen 325 mg tablet 650 mg (2 x 325 mg) PO Q6H PRN 02/22/23 Pain, Mild (Pain Scale 1-3) 30 days #420 tabs omeprazole 40 mg capsule,delayed 40 mg PO DAILY #90 caps 03/25/23 release lisinopril 20 mg tablet 20 mg PO DAILY 90 days #90 tabs 04/15/23 albuterol sulfate 90 mcg/actuation 1 puff inhalation QID PRN 05/18/23 aerosol inhaler Shortness Of Breath #18 grams montelukast 10 mg tablet 10 mg PO DAILY 90 days #90 tabs 06/01/23 metoprolol succinate 25 mg 25 mg PO DAILY #90 tabs 07/23/23 tablet,extended release 24 hr Allergies Allergy/AdvReac Type Severity Reaction Status Date / Time cat dander Allergy Unknown Unknown Verified 08/03/23 13:14 morphine Allergy Unknown unknown Verified 06/30/23 11:23 seasonal allergies Allergy Unknown Unknown Uncoded 06/30/23 11:09 [facility] Past Medical History Medical History (Updated 08/03/23 @ 14:32 by Hao Ku MD) Hyperkalemia Acute kidney injury Hyponatremia Acute respiratory failure with hypoxia Femoral neck fracture GERD (gastroesophageal reflux disease) JANAY (generalized anxiety disorder) IBS (irritable bowel syndrome) MDD (major depressive disorder) Pulmonary nodule Current smoker HTN (hypertension) Surgical History History of cervical discectomy Family History Family History Father Lung cancer Brain cancer Mother CVD (cardiovascular disease) Breast cancer Son In good health Brother In good health Social History Social History (Updated 08/03/23 @ 16:34 by Chely Joiner NP) Household Members: None Household Members Other:: self Housing: House Do you presently have visiting nurse or other home services: No Alcohol intake: current Alcohol intake frequency: a few times a month Patient Tobacco Use Status: Current everyday Tobacco user Tobacco use type: Cigarette Cigarette Packs Per Day: 1 Cigarettes Per Day: 20 e-Cigarette/Vaping Use: Never Used Advance Directives: Yes Advance Directives on File: Yes Advance Directives Date on File: 10/21/22 service: No Current occupational status: retired Cognitive needs: No Hearing needs: No Vision needs: No Physical Exam ED Vital Signs: Vital Signs - 24 hr 08/03/23 13:14 08/03/23 14:57 Temperature 98.5 F Pulse Rate 107 H 84 Respiratory Rate 16 16 Blood Pressure 182/104 H 132/99 H Pulse Oximetry 94 97 Oxygen Delivery Method Room Air Room Air BMI result Body Mass Index 17.1 Course Course Course Narrative: RME:?68 yo female hx of COPD current tobacco smoker, asthma, HTN, here for eval of worsening RSV symptoms . endorses chest pain, shortness of breath, and swelling to LE and feet. Was diagnosed with RSV a few weeks ago and states that her symptoms are not resolving. her pain management doctor advised her to come to the ED to check her heart. PE: hypertensive in triage > took lisinopril this am. states she is very anxious. no pitting edema. lungs without crackles. no jvd. no calf tenderness. Labs, EKG, chest x-ray , viral swabs ordered in triage Full HPI, ROS and PE to be performed by the primary ED provider. Reevaluation(s) Reevaluation #1: This is a duplicate note. Please refer to Dr. Ku's complete note regarding visit. Medications Administered Generic Name Dose Route Start Last Admin Trade Name Freq PRN Reason Stop Dose Admin Acetaminophen 650 mg 08/03/23 15:02 08/03/23 16:06 Acetaminophen 325 Mg Tablet PO 650 mg Q6H PRN Administration Pain, Mild (Pain Scale 1-3) Heparin Sodium/Sodium Chloride 25,000 unit in 250 mls @ 0 mls/hr 08/03/23 15:15 08/03/23 16:36 Heparin Sodium,Porcine/1/2ns IVCONT 12 units/kg/hr .Q0M JODI 5.41 mls/hr Administration Protocol Per Protocol Ceftriaxone Sodium 1 gm/ 50 mls @ 100 mls/hr 08/03/23 16:45 08/03/23 18:12 Sodium Chloride IV 100 mls/hr Q24H JODI Administration Sodium Chloride 3 ml 08/03/23 16:00 08/03/23 16:39 0.9 % Sodium Chloride Flush 3 Ml Syringe IVFLUSH 3 ml QSHIFT JODI Administration Discontinued Medications Generic Name Dose Route Start Last Admin Trade Name Freq PRN Reason Stop Dose Admin Aspirin 324 mg 08/03/23 14:43 08/03/23 16:05 Aspirin 81 Mg Tab.Chew PO 08/03/23 14:44 324 mg ONCE ONE Administration Heparin Sodium (Porcine) 2,700 unit 08/03/23 15:11 08/03/23 16:06 Heparin Sodium,Porcine 5,000 Unit/Ml Vial 60 unit/kg (2700 unit) 08/03/23 15:12 2,700 unit IVPUSH Administration ONCE ONE Magnesium Sulfate 2 gm in 50 mls @ 25 mls/hr 08/03/23 14:25 08/03/23 16:06 Magnesium Sulfate/H2o IV 08/03/23 16:24 25 mls/hr ONCE ONE Administration Potassium Chloride 40 meq 08/03/23 14:25 08/03/23 16:39 Potassium Chloride Er 20 Meq Tab.Er.Prt PO 08/03/23 14:26 Not Given ONCE ONE Medical Decision Making Lab Data 08/03/23 13:37 08/03/23 18:55 Labs: Lab Results 08/03/23 Range/Units 13:37 WBC 4.8 (4.8-10.8) X10*3/uL RBC 3.91 L (4.20-5.50) X10*6/uL Hgb 13.6 (12.0-16.0) g/dl Hct 39.3 (37.0-47.0) % MCV 100.5 H (80.0-98.0) fL MCH 34.8 H (27.0-33.0) pg MCHC 34.6 (31.0-35.0) g/dl RDW 14.8 (11.0-16.0) % Plt Count 171 D (160-400) X10*3/uL MPV 8.6 L (9.4-12.3) fL Immature Gran % (Auto) 0.2 (0.0-0.4) % Neut % (Auto) 70.8 (45-73) % Lymph % (Auto) 19.2 L (20-40) % [place] % (Auto) 9.2 (2-11) % Eos % (Auto) 0.2 (0-4) % Baso % (Auto) 0.4 (0-2) % Lymph # (Auto) 0.9 L (1.2-4.9) X10*3/uL [place] # (Auto) 0.4 (0.1-1.2) X10*3/uL Eos # (Auto) 0.0 (0.0-0.4) X10*3/uL Baso # (Auto) 0.0 (0.0-0.2) X10*3/uL Abs Immat Gran (auto) 0.01 (0.00-0.03) X10*3/uL Absolute Neuts (auto) 3.4 (2.0-8.3) x10*3/uL Absolute Nucleated RBC 0.000 (0.0-0.012) X10*3/uL Nucleated RBC % (auto) 0.0 (0.0-0.2) /100WBC Sodium 136 (135-145) mmol/L Potassium 3.1 L D (3.3-5.1) mmol/L Chloride 100 (96-108) mmol/L Carbon Dioxide 27 (22-29) mmol/L Anion Gap 12 (12-20) BUN 13 (9-16) mg/dL Creatinine 0.63 (0.5-1.4) mg/dL Estim Creat Clear Calc 58.1 Estimated GFR > 60 Random Glucose 121 H (60-115) mg/dL Calcium 8.4 D (8.4-10.2) mg/dL Magnesium 1.4 L* (1.6-2.6) mg/dL Troponin I High Sens 16.6 D (<3.5-17.0) ng/L B-Natriuretic Peptide 348 H (<100) pg/mL Lipase 12 (8-78) U/L Influenza Type A (PCR) NEGATIVE (Negative) Influenza Type B (PCR) NEGATIVE (Negative) RSV RNA Qual (PCR) NEGATIVE (Negative) SARS-CoV-2 RNA (RT-PCR) NEGATIVE (Negative) Discharge Plan Discharge Clinical Impression: Hypomagnesemia, Acute hypokalemia, ELIF (acute kidney injury), Abnormal ECG Patient Disposition: Admitted As Inpatient Interventions: Admission Worksheet (ED) Last Done: 08/03/23 21:22 Discharge Date/Time: 08/03/23 21:33
--- NOTE | 2023-08-03 13:24 | ECG_ITS ---
Test Reason : CHEST PAIN Blood Pressure : / mmHG Vent. Rate : 093 BPM Atrial Rate : 093 BPM P-R Int : 150 ms QRS Dur : 062 ms QT Int : 392 ms P-R-T Axes : 072 034 117 degrees QTc Int : 487 ms Normal sinus rhythm Possible Left atrial enlargement Low voltage QRS Cannot rule out Anterior infarct (cited on or before 21-OCT-2022) Marked T wave abnormality, consider lateral ischemia Abnormal ECG When compared with ECG of 19-FEB-2023 18:41, T wave amplitude has decreased in Inferior leads T wave inversion now evident in Anterolateral leads Referred By: Cynthia Alfred Electronically Signed By:JF GARCIA MD
[2023-08-03 13:42] LABS: MANUAL DIFF FLAG NO
[2023-08-03 13:46] LABS: Basophils Percent Auto 0.4 % (0-2); Eosinophils Percent Auto 0.2 % (0-4); Hematocrit 39.3 % (37.0-47.0); Hemoglobin 13.6 g/dl (12.0-16.0); Imm Gran Abs Auto 0.01 X10*3/uL (0.00-0.03); Imm Gran Pct Auto 0.2 % (0.0-0.4); Lymphocytes Absolute Auto 0.9 X10*3/uL (1.2-4.9); Lymphocytes Percent Auto 19.2 % (20-40); Mean Corpuscular HGB Conc 34.6 g/dl (31.0-35.0); Mean Corpuscular Hemoglobin 34.8 pg (27.0-33.0); Mean Corpuscular Volume 100.5 fL (80.0-98.0); Mean Platelet Volume 8.6 fL (9.4-12.3); Monocytes Absolute Auto 0.4 X10*3/uL (0.1-1.2); Monocytes Percent Auto 9.2 % (2-11); Neutrophils Absolute Auto 3.4 x10*3/uL (2.0-8.3); Neutrophils Percent Auto 70.8 % (45-73); Platelet Count 171 X10*3/uL (160-400); Red Blood Count 3.91 X10*6/uL (4.20-5.50); Red Cell Distribution Width 14.8 % (11.0-16.0); White Blood Count 4.8 X10*3/uL (4.8-10.8)
--- NOTE | 2023-08-03 13:53 | ED_ITS ---
HPI - General Adult General Chief complaint: General Medical Stated complaint: RSV few weeks, swelling in legs/feet Time Seen by Provider: 08/03/23 13:42 Source: patient Mode of arrival: ambulatory Limitations: no limitations History of Present Illness HPI narrative: This is 68 years old female presented to the emergency department complaining of generalized weakness leg swelling chest pain which is been ongoing for weeks. She was recently diagnosed with RSV she has a she has not feeling any better Onset (ago): day(s) (3) Location: lower extremity Radiation: non-radiation Severity: moderate Pain Consistency: constant Relieving factors: none Related Data Home Medications Medication Instructions Recorded Confirmed fluticasone propionate 50 1 spray intranasal BID PRN 10/21/22 06/30/23 mcg/actuation nasal Allergic Symptoms spray,suspension (Flonase Allergy Relief) multivitamin 1 tab PO DAILY 10/21/22 06/30/23 Previous Rx's Medication Instructions Recorded blood pressure test kit-small #1 ea 03/11/22 back brace #1 ea 08/20/22 acetaminophen 325 mg tablet 650 mg (2 x 325 mg) PO Q6H PRN 02/22/23 Pain, Mild (Pain Scale 1-3) 30 days #420 tabs omeprazole 40 mg capsule,delayed 40 mg PO DAILY #90 caps 03/25/23 release lisinopril 20 mg tablet 20 mg PO DAILY 90 days #90 tabs 04/15/23 alendronate 70 mg tablet 70 mg PO QWEEK 12 weeks #12 tabs 04/21/23 albuterol sulfate 90 mcg/actuation 1 puff inhalation QID PRN 05/18/23 aerosol inhaler Shortness Of Breath #18 grams montelukast 10 mg tablet 10 mg PO DAILY 90 days #90 tabs 06/01/23 azithromycin 250 mg tablet See Rx Instructions PO .COMPLEX #6 06/30/23 tabs guaifenesin 600 mg tablet, 600 mg PO BID 10 days #20 tabs 06/30/23 extended release 12 hr (Mucinex) magnesium oxide 500 mg PO BEDTIME 90 days #90 tabs 06/30/23 prednisone 10 mg tablet 10 mg PO DIRECTED 9 days #18 06/30/23 tabs metoprolol succinate 25 mg 25 mg PO DAILY #90 tabs 07/23/23 tablet,extended release 24 hr Allergies Allergy/AdvReac Type Severity Reaction Status Date / Time cat dander Allergy Unknown Unknown Verified 08/03/23 13:14 morphine Allergy Unknown unknown Verified 06/30/23 11:23 seasonal allergies Allergy Unknown Unknown Uncoded 06/30/23 11:09 Review of Systems 2 Cardiovascular: Cardiovascular: Reports chest pain Respiratory: Respiratory: Reports no additional respiratory complaints Neurologic: Reports system reviewed and no additional complaints, except as documented PMFSH Past Medical History Attestation statement: The following information was validated with the patient. Medical History (Updated 08/03/23 @ 14:32 by Hao Ku MD) Hyperkalemia Acute kidney injury Hyponatremia Acute respiratory failure with hypoxia Femoral neck fracture GERD (gastroesophageal reflux disease) JANAY (generalized anxiety disorder) IBS (irritable bowel syndrome) MDD (major depressive disorder) Pulmonary nodule Current smoker HTN (hypertension) Surgical History History of cervical discectomy Family History Family History Father Lung cancer Brain cancer Mother CVD (cardiovascular disease) Breast cancer Son In good health Brother In good health Social History Social History Household Members: None Household Members Other:: self Housing: House Do you presently have visiting nurse or other home services: No Alcohol intake: current Alcohol intake frequency: a few times a month Patient Tobacco Use Status: Current everyday Tobacco user Tobacco use type: Cigarette Cigarette Packs Per Day: 0.5 Cigarettes Per Day: 10.0 e-Cigarette/Vaping Use: Never Used Advance Directives: Yes Advance Directives on File: Yes Advance Directives Date on File: 10/21/22 service: No Current occupational status: retired Cognitive needs: No Hearing needs: No Vision needs: No Physical Exam ED Vital Signs: Vital Signs - 24 hr 08/03/23 13:14 08/03/23 14:57 Temperature 98.5 F Pulse Rate 107 H 84 Respiratory Rate 16 16 Blood Pressure 182/104 H 132/99 H Pulse Oximetry 94 97 Oxygen Delivery Method Room Air Room Air BMI result Body Mass Index 17.1 Const General: cooperative Nutritional Appearance: average body habitus Orientation/consciousness: patient oriented x3 Limitations: no limitations HENMT Head: Yes normal to inspection General nose exam: Normal external nose present Face and sinus: Yes normal facial exam Neck Neck: Yes normal visual inspection Chest Chest palpation & inspection: normal inspection of the chest Resp Effort & Inspection: normal respiratory effort Auscultation: clear to auscultation bilaterally Cardio Rate: regular rate Rhythm: regular rhythm GI Inspection: Yes normal to inspection Palpation (GI): Soft to palpation, not firm and nontender Auscultation: normal bowel sounds Skin General skin exam: no rashes or lesions noted Rashes: no rashes Neuro General: patient oriented x3 Course Reevaluation(s) Reevaluation #1: Spoke with director of student affairs Dr Maldonado Time: 14:43 Reevaluation #2: SPOKE WITH HOSPITALIST Time: 15:42 Medical Decision Making Medical Decision Making [facility] Narrative: Patient presented with a chief complaint of weakness malaise chronic chest pain we will obtain electrocardiogram troponin labs Differential Diagnosis Differential Diagnoses: The differential diagnosis associated with the presentation includes Differential diagnosis ACS/CHF/anemia Admission/Observation Consideration of admission/observation: Escalation of care including admission/observation considered Lab Data [facility] Lab Attestation statement: I reviewed the patient's lab results. 08/03/23 13:37 08/03/23 13:37 Labs: Lab Results 08/03/23 Range/Units 13:37 WBC 4.8 (4.8-10.8) X10*3/uL RBC 3.91 L (4.20-5.50) X10*6/uL Hgb 13.6 (12.0-16.0) g/dl Hct 39.3 (37.0-47.0) % MCV 100.5 H (80.0-98.0) fL MCH 34.8 H (27.0-33.0) pg MCHC 34.6 (31.0-35.0) g/dl RDW 14.8 (11.0-16.0) % Plt Count 171 D (160-400) X10*3/uL MPV 8.6 L (9.4-12.3) fL Immature Gran % (Auto) 0.2 (0.0-0.4) % Neut % (Auto) 70.8 (45-73) % Lymph % (Auto) 19.2 L (20-40) % [place] % (Auto) 9.2 (2-11) % Eos % (Auto) 0.2 (0-4) % Baso % (Auto) 0.4 (0-2) % Lymph # (Auto) 0.9 L (1.2-4.9) X10*3/uL [place] # (Auto) 0.4 (0.1-1.2) X10*3/uL Eos # (Auto) 0.0 (0.0-0.4) X10*3/uL Baso # (Auto) 0.0 (0.0-0.2) X10*3/uL Abs Immat Gran (auto) 0.01 (0.00-0.03) X10*3/uL Absolute Neuts (auto) 3.4 (2.0-8.3) x10*3/uL Absolute Nucleated RBC 0.000 (0.0-0.012) X10*3/uL Nucleated RBC % (auto) 0.0 (0.0-0.2) /100WBC Sodium 136 (135-145) mmol/L Potassium 3.1 L D (3.3-5.1) mmol/L Chloride 100 (96-108) mmol/L Carbon Dioxide 27 (22-29) mmol/L Anion Gap 12 (12-20) BUN 13 (9-16) mg/dL Creatinine 0.63 (0.5-1.4) mg/dL Estim Creat Clear Calc 58.1 Estimated GFR > 60 Random Glucose 121 H (60-115) mg/dL Calcium 8.4 D (8.4-10.2) mg/dL Magnesium 1.4 L* (1.6-2.6) mg/dL Troponin I High Sens 16.6 D (<3.5-17.0) ng/L B-Natriuretic Peptide 348 H (<100) pg/mL Lipase 12 (8-78) U/L Influenza Type A (PCR) NEGATIVE (Negative) Influenza Type B (PCR) NEGATIVE (Negative) RSV RNA Qual (PCR) NEGATIVE (Negative) SARS-CoV-2 RNA (RT-PCR) NEGATIVE (Negative) Independent Interpretation I performed an independent interpretation of an: EKG (Electrocardiogram shows an abnormal EKG with deep T-wave inversion in the lateral leads which are new since prior) Critical Care Time Critical Care Time Critical Care Time: Yes Total Critical Care Time: 60 Attestation: TAKING CARE OF THE PATIENT DISCUSSION WITH CARDIOLOGY IV MAGNESIUM IV HEPARIN Discharge Plan Discharge Clinical Impression: Hypomagnesemia, Acute hypokalemia, ELIF (acute kidney injury), Abnormal ECG
[2023-08-03 14:05] LABS: B Type Natriuretic Peptide 348 pg/mL (<100)
[2023-08-03 14:06] LABS: Troponin-I High Sensitivity 16.6 ng/L (<3.5-17.0)
[2023-08-03 14:20] LABS: Anion Gap 12 (12-20); Blood Urea Nitrogen 13 mg/dL (9-16); Calcium 8.4 mg/dL (8.4-10.2); Carbon Dioxide 27 mmol/L (22-29); Chloride 100 mmol/L (96-108); Creatinine Clr Calc Pharmacy 58.1; Estimated Glomerular Filt Rate > 60; Glucose Random 121 mg/dL (60-115); Influenza A PCR NEGATIVE (Negative); Influenza B PCR NEGATIVE (Negative); Lipase 12 U/L (8-78); Magnesium 1.4 mg/dL (1.6-2.6); Potassium 3.1 mmol/L (3.3-5.1); Resp Syncy Virus RNA Qual PCR NEGATIVE (Negative); SARS COV2 PCR INHOUSE NEGATIVE (Negative); Sodium 136 mmol/L (135-145)
[2023-08-03 14:51] VITALS: BMI 17.1
[2023-08-03 14:57] VITALS: BP 132/99; PULSE 84; RESP 16; O2SAT 97
--- NOTE | 2023-08-03 15:15 | P.HPHOSP_ITS ---
History of Present Illness Date of Service: 08/03/23 Chief Complaint: Chest pain 68-year-old woman with complaints of generalized leg swelling and chest pain over the last week. She reports that she was diagnosed with RSV on 06/30/2023 and was feeling unwell. Patient reported some mild shortness of breath with nausea, constipation and diarrhea but she does have a history of IBS and that may be contributing to that. Denied any recent fever, sick contacts, chills, recent travel. She smokes a pack of cigarettes a day and has for many decades. EKG showing deep T-wave inversions to anterior leads but normal troponin of 16.6, BNP 348, magnesium 1.4, potassium 3.1, negative flu or COVID, no fever leukocytosis noted. Patient was given potassium, started on IV heparin, aspirin in the ER. She will be admitted for further management and treatment of question NSTEMI versus myocarditis/pericarditis recent RSV. Review of Systems 2 Review of Systems: Denies any recent fever chills or decrease in appetite respiratory denies any shortness of breath or cough cardiovascular see HPI gastrointestinal denies any dysphagia abdominal pain nausea vomiting or diarrhea genitourinary denies any dysuria frequency or hematuria musculoskeletal denies any joint pain or swelling neuropsych denies any weakness or seizures all other systems reviewed are negative [facility] Medical History (Updated 08/03/23 @ 14:32 by Hao Ku MD) Hyperkalemia Acute kidney injury Hyponatremia Acute respiratory failure with hypoxia Femoral neck fracture GERD (gastroesophageal reflux disease) JANAY (generalized anxiety disorder) IBS (irritable bowel syndrome) MDD (major depressive disorder) Pulmonary nodule Current smoker HTN (hypertension) Family History Father Lung cancer Brain cancer Mother CVD (cardiovascular disease) Breast cancer Son In good health Brother In good health Surgical History History of cervical discectomy Social History (Updated 08/03/23 @ 16:34 by Chely Joiner NP) Household Members: None Household Members Other:: self Housing: House Do you presently have visiting nurse or other home services: No Alcohol intake: current Alcohol intake frequency: a few times a month Patient Tobacco Use Status: Current everyday Tobacco user Tobacco use type: Cigarette Cigarette Packs Per Day: 1 Cigarettes Per Day: 20 e-Cigarette/Vaping Use: Never Used Advance Directives Date on File: 10/21/22 service: No Current occupational status: retired Cognitive needs: No Hearing needs: No Vision needs: No Meds Allergies Allergy/AdvReac Type Severity Reaction Status Date / Time cat dander Allergy Unknown Unknown Verified 08/03/23 13:14 morphine Allergy Unknown unknown Verified 06/30/23 11:23 seasonal allergies Allergy Unknown Unknown Uncoded 06/30/23 11:09 Active Medications: Current Medications Acetaminophen (Acetaminophen 325 Mg Tablet) 650 mg PO Q6H PRN PRN Reason: Pain, Mild (Pain Scale 1-3) Heparin Sodium (Porcine) (Heparin Sodium,Porcine 5,000 Unit/Ml Vial) 2,700 unit 60 unit/kg (2700 unit) IVPUSH ONCE ONE Stop: 08/03/23 15:12 Magnesium Sulfate (Magnesium Sulfate/H2o) 2 gm in 50 mls @ 25 mls/hr IV ONCE ONE Stop: 08/03/23 16:24 Heparin Sodium/Sodium Chloride (Heparin Sodium,Porcine/1/2ns) 25,000 unit in 250 mls @ 0 mls/hr IVCONT .Q0M [facility]; Protocol Ondansetron HCl (Ondansetron Hcl 4 Mg/2 Ml Vial) 4 mg IVPUSH Q8H PRN PRN Reason: Nausea and Vomiting Sodium Chloride (0.9 % Sodium Chloride Flush 3 Ml Syringe) 3 ml IVFLUSH QSHIFT [facility] Home Medications Medication Instructions Recorded Confirmed Last Taken Type fluticasone propionate 50 1 spray intranasal BID PRN 10/21/22 06/30/23 Unknown History mcg/actuation nasal Allergic Symptoms spray,suspension (Flonase Allergy Relief) multivitamin 1 tab PO DAILY 10/21/22 06/30/23 10/21/22 History Physical Exam 2 Vital Signs and Narrative: Vital Signs: Last Vital Signs Temp 98.5 F 08/03/23 13:14 Pulse 84 08/03/23 14:57 Resp 16 08/03/23 14:57 BP 132/99 H 08/03/23 14:57 Pulse Ox 97 08/03/23 14:57 O2 Del Method Room Air 08/03/23 14:57 BMI result Body Mass Index 17.1 Appearing in no acute distress head is normocephalic atraumatic eyes pupils are PERRLA sclera is anicteric mouth throat mucous membranes are intact and moist neck is supple no lymphadenopathy, no JVD noted lung sounds are clear to auscultation heart regular rate rhythm, clear S1, S2 positive bowel sounds, abdomen is soft, nontender neuro patient is alert x3, no focal deficits Results Labs 08/03/23 13:37 08/03/23 13:37 Labs: Laboratory Results - last 24 hr 08/03/23 13:37 MCV 100.5 H MCH 34.8 H MCHC 34.6 RDW 14.8 Plt Count 171 D MPV 8.6 L Immature Gran % (Auto) 0.2 Neut % (Auto) 70.8 Lymph % (Auto) 19.2 L [place] % (Auto) 9.2 Eos % (Auto) 0.2 Baso % (Auto) 0.4 Lymph # (Auto) 0.9 L [place] # (Auto) 0.4 Eos # (Auto) 0.0 Baso # (Auto) 0.0 Abs Immat Gran (auto) 0.01 Absolute Neuts (auto) 3.4 Absolute Nucleated RBC 0.000 Nucleated RBC % (auto) 0.0 Anion Gap 12 Estim Creat Clear Calc 58.1 Estimated GFR > 60 Random Glucose 121 H Calcium 8.4 D Magnesium 1.4 L* Troponin I High Sens 16.6 D B-Natriuretic Peptide 348 H Lipase 12 Influenza Type A (PCR) NEGATIVE Influenza Type B (PCR) NEGATIVE RSV RNA Qual (PCR) NEGATIVE SARS-CoV-2 RNA (RT-PCR) NEGATIVE Assessment and Plan (1) Abnormal ECG: Status: Acute Plan 68-year-old woman admitted with chest pain secondary to possible NSTEMI NSTEMI vs myocarditis/pericarditis Recent RSV diagnosis on 06/30/2023 Deep T-wave inversions in anterior leads, new from previous Discussed with Cardiology, start IV heparin drip Trend troponin Monitor on telemetry Aspirin, statin UTI Will start Rocephin Follow urine cultures Hypomagnesemia/hypokalemia repleted continue to monitor, repeat labs at 19:00 and replete as necessary Hypertension stable BP On lisinopril at home Continue home medications when medication reconciliation is completed GERD Continue PPI Asthma No exacerbation Continue inhalers as needed Smoker Offered nicotine replacement and declined, will order if patient requests Protein calorie malnutrition. BMI 17.1 Increase oral intake Add protein to diet Medication reconciliation is pending DVT prophylaxis with IV heparin Full code Patient will needs at least 2 midnights for tx of NSTEMI requiring IV heparin drip and specialty consultation Quality Stroke Does the patient have a stroke diagnosis?: No VTE Prior VTE?: No VTE Risk Level:: Medical - moderate - high VTE Device Contraindication: Treatment Not Indicated VTE Drug Contraindication: N/A - Med Ordered
[2023-08-03 15:46] LABS: INTERNATIONAL NORM RATIO 0.9 (0.9-1.1); Prothrombin Time 10.7 SEC (11.1-13.3)
[2023-08-03 15:49] LABS: PTT Heparin Drip 33.4 SEC (53-77.9)
--- NOTE | 2023-08-03 15:52 | PC.NURSE ---
2nd IV established in left AC, ambulated to the bathroom with 1 assist to provide urine sample.
[2023-08-03 16:01] LABS: Appearance Urine Cloudy; Color Urine Dark Yellow; Glucose Urine UA Negative (Negative); Leukocyte Esterase Urine Moderate (2+) (Negative); Nitrite Urine Positive (Negative); PH >= 9.0 (5.0-9.0); Specific Gravity - Urine >= 1.030 (1.005-1.025); UMIC TRIGGER UACC YES; Urine Blood Small (1+) (Negative); Urine Ketones Trace mg/dL (Negative); Urine Protein 300 (3+) mg/dL (Neg-Trace)
[2023-08-03] MEDS: Aspirin 81 MG TAB.CHEW 324 MG PO (16:05)
[2023-08-03] MEDS: Heparin Sodium,Porcine 5,000 UNIT/ML VIAL 2700 UNIT IVPUSH (16:06)
[2023-08-03] MEDS: Acetaminophen 325 MG TABLET 650 MG PO ×2 (16:06→21:50)
[2023-08-03] MEDS: Magnesium Sulfate/H2O 2 GM/50 ML PIGGYBACK IV (16:06)
[2023-08-03 16:10] LABS: Bacteria Urine 4+ (None Seen); UACC Culture Trigger YES; WBC Urine >50 /HPF (0-5)
[2023-08-03] MEDS: Heparin Sodium,Porcine/1/2NS 25,000 UNIT/250 ML IV.SOLN 5.41 UNIT IVCONT (16:36)
[2023-08-03] MEDS: 0.9 % Sodium Chloride Flush 3 ML SYRINGE IVFLUSH (16:39)
--- NOTE | 2023-08-03 16:40 | PC.NURSE ---
magnesium infusing in right arm. heparin infusing in left arm at 12 units/kg/hr. patient remains alert and oriented, offering no complaints at this time.
--- NOTE | 2023-08-03 17:01 | PHA.MEDREC ---
Pharmacy Consult ? Medication Reconciliation Pharmacy has completed the medication reconciliation. spoke with patient to confirm medications. She reports that she never got the alendronate because the doctor never ordered it? (despite two recent fills). She reports that she has been needing her albuterol daily.
[2023-08-03 18:00] VITALS: BP 140/85; PULSE 76; RESP 14; TEMP 36.7; O2SAT 98
[2023-08-03] MEDS: cefTRIAXone sodium 1 GM in 0.9 % Sodium Chloride 50 ML IV (18:12)
[2023-08-03 19:05] VITALS: BP 169/95; PULSE 69; RESP 19; TEMP 36.7; O2SAT 100
--- NOTE | 2023-08-03 19:07 | PC.NURSE ---
assumed care of pt at 0. Pt alert and oriented and in no acute distress at this time. Heparin drip running at 12u/kg/hr. Placed order for 6hr repeat drip for 2036. Call carrasquillo within reach plan of care ongoing
[2023-08-03 19:11] LABS: Anion Gap 11 (12-20); Blood Urea Nitrogen 12 mg/dL (9-16); Calcium 8.2 mg/dL (8.4-10.2); Carbon Dioxide 26 mmol/L (22-29); Chloride 102 mmol/L (96-108); Creatinine Clr Calc Pharmacy 61.8; Estimated Glomerular Filt Rate > 60; Glucose Random 87 mg/dL (60-115); Potassium 3.2 mmol/L (3.3-5.1); Sodium 136 mmol/L (135-145)
[2023-08-03] MEDS: Atorvastatin Calcium 40 MG TABLET PO (21:51)
[2023-08-03 22:14] VITALS: BP 160/84; PULSE 74; RESP 18; TEMP 36.8; O2SAT 97
[2023-08-03 22:18] VITALS: BMI 16.6
[2023-08-03 23:20] VITALS: BP 137/76; PULSE 70; RESP 18; TEMP 36.5; O2SAT 96
--- NOTE | 2023-08-04 | CA_ITS ---
Acquisition Time: 2023-08-05 11:08:20 Total Exercise Time: 00:02:00 Test Indications: Abnormal ECG Medications: SEE EMAR Protocol: LEXISCAN Max HR: 110 BPM 72% of Pred: 152 BPM Max BP: 136/078 mmHG Max Work Load: 1.0 METS Pharmacological stress test with Lexiscan injection while sitting and kicking her legs, without anginal symptoms,without arrhythmias, with normotensive response to injection, with nondiagnoisitic EKGs. AMinophylline 75mg IVP given to reverse Lexiscan. Nuclear images pending. Test reviewed with Dr. Pavon Referred By: Chely Joiner Overread By: Renetta Cortez
[2023-08-04] MEDS: 0.9 % Sodium Chloride Flush 3 ML SYRINGE IVFLUSH ×4 (00:24→20:03)
[2023-08-04 00:32] LABS: PTT Heparin Drip 116.8 SEC (53-77.9)
[2023-08-04 02:10] LABS: PTT Heparin Drip 42.9 SEC (53-77.9)
[2023-08-04 03:17] VITALS: BP 132/82; PULSE 72; RESP 18; TEMP 36.6; O2SAT 97
[2023-08-04 06:23] LABS: Hematocrit 35.3 % (37.0-47.0); Hemoglobin 12.3 g/dl (12.0-16.0); Mean Corpuscular HGB Conc 34.8 g/dl (31.0-35.0); Mean Corpuscular Hemoglobin 35.1 pg (27.0-33.0); Mean Corpuscular Volume 100.9 fL (80.0-98.0); Mean Platelet Volume 9.7 fL (9.4-12.3); Platelet Count 164 X10*3/uL (160-400); Red Cell Distribution Width 15.3 % (11.0-16.0); White Blood Count 3.7 X10*3/uL (4.8-10.8)
[2023-08-04 06:40] LABS: INTERNATIONAL NORM RATIO 0.9 (0.9-1.1); Prothrombin Time 10.6 SEC (11.1-13.3)
[2023-08-04 06:46] LABS: Alanine Aminotransferase 7 U/L (0-31); Albumin Level 2.6 g/dL (3.5-5.0); Alkaline Phosphatase 102 U/L (39-117); Anion Gap 10 (12-20); Aspartate Amino Transferase 21 U/L (5-31); Bilirubin Total 0.4 mg/dL (0.0-1.0); Blood Urea Nitrogen 10 mg/dL (9-16); Calcium 8.1 mg/dL (8.4-10.2); Carbon Dioxide 27 mmol/L (22-29); Chloride 100 mmol/L (96-108); Creatinine Clr Calc Pharmacy 65.5; Estimated Glomerular Filt Rate > 60; Glucose Random 92 mg/dL (60-115); Potassium 3.5 mmol/L (3.3-5.1); Sodium 133 mmol/L (135-145); Total Protein 5.3 g/dL (6.5-8.0)
[2023-08-04 07:00] VITALS: BP 168/102; PULSE 90; RESP 20; TEMP 36.6; O2SAT 97
[2023-08-04 08:11] LABS: Troponin-I High Sensitivity 12.6 ng/L (<3.5-17.0)
[2023-08-04 08:15] LABS: Magnesium 1.8 mg/dL (1.6-2.6)
[2023-08-04 08:57] LABS: PTT Heparin Drip 49.5 SEC (53-77.9)
--- NOTE | 2023-08-04 09:33 | HO.PM.IMPN ---
Subjective Subjective Date of Service: 08/04/23 Review of Systems Follow up NSTEMI no chest pain, nausea or vomiting Physical Exam Vital Signs: Vital Signs: Last Vital Signs Temp 97.8 F 08/04/23 07:00 Pulse 90 08/04/23 07:00 Resp 20 08/04/23 07:00 BP 168/102 H 08/04/23 07:00 Pulse Ox 97 08/04/23 07:00 O2 Del Method Room Air 08/04/23 07:00 BMI result Body Mass Index 16.6 Appearing in no acute distress lung sounds are clear to auscultation heart regular rate rhythm, clear S1, S2 positive bowel sounds, abdomen is soft, nontender neuro patient is alert x3, no focal deficits Objective Data Active Medications Acetaminophen (Acetaminophen 325 Mg Tablet) 650 mg PO Q6H PRN PRN Reason: Pain, Mild (Pain Scale 1-3) Last Admin: 08/03/23 21:50 Dose: 650 mg Documented By: WALTER Aspirin (Aspirin 81 Mg Tab.Chew) 81 mg PO DAILY [facility] Atorvastatin Calcium (Atorvastatin Calcium 40 Mg Tablet) 40 mg PO BEDTIME [facility] Last Admin: 08/03/23 21:51 Dose: 40 mg Documented By: WALTER Heparin Sodium (Porcine) (Heparin Sodium,Porcine 5,000 Unit/Ml Vial) 1,800 unit 40 unit/kg (1700 unit) IVPUSH PROTOCOL BOLUS PRN; Protocol PRN Reason: 40 unit/kg - Heparin Protocol Heparin Sodium (Porcine) (Heparin Sodium,Porcine 5,000 Unit/Ml Vial) 3,600 unit 80 unit/kg (3400 unit) IVPUSH PROTOCOL BOLUS PRN; Protocol PRN Reason: 80 unit/kg - Heparin Protocol Heparin Sodium/Sodium Chloride (Heparin Sodium,Porcine/1/2ns) 25,000 unit in 250 mls @ 0 mls/hr IVCONT .Q0M [facility]; Protocol Last Titration: 08/04/23 02:31 Dose: 8 units/kg/hr, 3.61 mls/hr Documented By: CHAKA Co-signed By: WALTER Ceftriaxone Sodium 1 gm/ (Sodium Chloride) 50 mls @ 100 mls/hr IV Q24H [facility] Last Infusion: 08/03/23 21:50 Dose: Infused Documented By: WALTER Ondansetron HCl (Ondansetron Hcl 4 Mg/2 Ml Vial) 4 mg IVPUSH Q8H PRN PRN Reason: Nausea and Vomiting Sodium Chloride (0.9 % Sodium Chloride Flush 3 Ml Syringe) [facility] Last Admin: 08/04/23 00:24 Dose: 3 ml Documented By: CHAKA Labs 08/04/23 05:47 08/04/23 05:47 Labs: Laboratory Results - last 24 hr 08/03/23 08/03/23 08/03/23 13:37 15:27 15:54 MCV 100.5 H MCH 34.8 H MCHC 34.6 RDW 14.8 Plt Count 171 D MPV 8.6 L Immature Gran % (Auto) 0.2 Neut % (Auto) 70.8 Lymph % (Auto) 19.2 L [place] % (Auto) 9.2 Eos % (Auto) 0.2 Baso % (Auto) 0.4 Lymph # (Auto) 0.9 L [place] # (Auto) 0.4 Eos # (Auto) 0.0 Baso # (Auto) 0.0 Abs Immat Gran (auto) 0.01 Absolute Neuts (auto) 3.4 Absolute Nucleated RBC 0.000 Nucleated RBC % (auto) 0.0 PT 10.7 L INR 0.9 aPTT Heparin Protocol 33.4 L Anion Gap 12 Estim Creat Clear Calc 58.1 Estimated GFR > 60 Random Glucose 121 H Calcium 8.4 D Magnesium 1.4 L* Total Bilirubin AST ALT Alkaline Phosphatase Troponin I High Sens 16.6 D B-Natriuretic Peptide 348 H Total Protein Albumin Lipase 12 Urine Color Dark Yellow Urine Appearance Cloudy Urine pH >= 9.0 Ur Specific [place] >= 1.030 H Urine Protein 300 (3+) H Urine Glucose (UA) Negative Urine Ketones Trace Urine Blood Small (1+) H Urine Nitrite Positive H Ur Leukocyte Esterase Moderate (2+) H Urine RBC 3-5 H Urine WBC >50 H Ur Squamous Epith Cells 3-5 Urine Bacteria 4+ Hyaline Casts 6-10 Influenza Type A (PCR) NEGATIVE Influenza Type B (PCR) NEGATIVE RSV RNA Qual (PCR) NEGATIVE SARS-CoV-2 RNA (RT-PCR) NEGATIVE 08/03/23 08/04/23 08/04/23 18:55 00:04 01:57 MCV MCH MCHC RDW Plt Count MPV Immature Gran % (Auto) Neut % (Auto) Lymph % (Auto) [place] % (Auto) Eos % (Auto) Baso % (Auto) Lymph # (Auto) [place] # (Auto) Eos # (Auto) Baso # (Auto) Abs Immat Gran (auto) Absolute Neuts (auto) Absolute Nucleated RBC Nucleated RBC % (auto) PT INR aPTT Heparin Protocol 116.8 H* D 42.9 L D Anion Gap 11 L Estim Creat Clear Calc 61.8 Estimated GFR > 60 Random Glucose 87 Calcium 8.2 L Magnesium Total Bilirubin AST ALT Alkaline Phosphatase Troponin I High Sens B-Natriuretic Peptide Total Protein Albumin Lipase Urine Color Urine Appearance Urine pH Ur Specific [place] Urine Protein Urine Glucose (UA) Urine Ketones Urine Blood Urine Nitrite Ur Leukocyte Esterase Urine RBC Urine WBC Ur Squamous Epith Cells Urine Bacteria Hyaline Casts Influenza Type A (PCR) Influenza Type B (PCR) RSV RNA Qual (PCR) SARS-CoV-2 RNA (RT-PCR) 08/04/23 08/04/23 08/04/23 05:47 05:48 08:32 MCV 100.9 H MCH 35.1 H MCHC 34.8 RDW 15.3 Plt Count 164 MPV 9.7 Immature Gran % (Auto) Neut % (Auto) Lymph % (Auto) [place] % (Auto) Eos % (Auto) Baso % (Auto) Lymph # (Auto) [place] # (Auto) Eos # (Auto) Baso # (Auto) Abs Immat Gran (auto) Absolute Neuts (auto) Absolute Nucleated RBC 0.000 Nucleated RBC % (auto) 0.0 PT 10.6 L INR 0.9 aPTT Heparin Protocol 49.5 L Anion Gap 10 L Estim Creat Clear Calc 65.5 Estimated GFR > 60 Random Glucose 92 Calcium 8.1 L Magnesium 1.8 Total Bilirubin 0.4 AST 21 ALT 7 Alkaline Phosphatase 102 Troponin I High Sens 12.6 B-Natriuretic Peptide Total Protein 5.3 L Albumin 2.6 L Lipase Urine Color Urine Appearance Urine pH Ur Specific [place] Urine Protein Urine Glucose (UA) Urine Ketones Urine Blood Urine Nitrite Ur Leukocyte Esterase Urine RBC Urine WBC Ur Squamous Epith Cells Urine Bacteria Hyaline Casts Influenza Type A (PCR) Influenza Type B (PCR) RSV RNA Qual (PCR) SARS-CoV-2 RNA (RT-PCR) Microbiology Microbiology Results: Microbiology 08/03/23 16:11 Urine Culture - Preliminary Urine clean catch - Urine britton top Culture in progress. Assessment and Plan (1) ELIF (acute kidney injury): Status: Acute Plan 68-year-old woman admitted with chest pain secondary to possible NSTEMI NSTEMI vs myocarditis/pericarditis Recent RSV diagnosis on 06/30/2023 Deep T-wave inversions in anterior leads, new from previous IV heparin drip 48 hours Trend troponin Monitor on telemetry Aspirin, statin. BB cardiology following UTI Rocephin Follow urine cultures Hypomagnesemia/hypokalemia repleted continue to monitor, repeat labs at 19:00 and replete as necessary Hypertension stable BP On lisinopril at home Continue home medications when medication reconciliation is completed GERD Continue PPI Asthma No exacerbation Continue inhalers as needed Smoker Offered nicotine replacement and declined, will order if patient requests Protein calorie malnutrition. BMI 17.1 Increase oral intake Add protein to diet Medication reconciliation is pending DVT prophylaxis with IV heparin Attending Dr. Gonzalez Full code continue hopsital stay for tx of NSTEMI requiring IV heparin drip and specialty consultation Quality Stroke Does the patient have a stroke diagnosis?: No VTE Prior VTE?: No VTE Risk Level:: Medical - moderate - high VTE Device Contraindication: Treatment Not Indicated VTE Drug Contraindication: N/A - Med Ordered
[2023-08-04] MEDS: Aspirin 81 MG TAB.CHEW PO (09:59)
[2023-08-04] MEDS: lisinopriL 20 MG TABLET PO (10:00)
[2023-08-04] MEDS: Metoprolol Succinate ER 25 MG TAB.ER.24H PO (10:00)
[2023-08-04] MEDS: Heparin Sodium,Porcine 5,000 UNIT/ML VIAL 1800 UNIT IVPUSH (10:21)
[2023-08-04 11:27] VITALS: BP 151/78; PULSE 76; RESP 20; TEMP 36.6; O2SAT 97
--- NOTE | 2023-08-04 13:37 | PM.CNCAR ---
History of Present Illness History of Present Illness Date of Service: 08/04/23 Requesting physician: Chely Joiner Consult reason: other (Abnormal EKG) Chief complaint: Nstemi Narrative: I was consulted to see Leslie in cardiology consultation today for abnormal EKG. Despite multiple different ways of asking history she has not a very good historian. She is complaining of a lot of chronic issues intermittent Liss and when asked why she came to the hospital she says she just did not feel well. When I further asked her what she meant felt not feeling well she has not able to describe it. She says she has chronically had balance issues and brittle bones related to osteoporosis and is walking with help of support around the house due to fear of falls. She has a chronic smoker and has prior underlying COPD. She had hip replacement in the past. She also has longstanding history of hypertension. She came to the hospital by just saying that she does not feel well. She says she also has leg edema when she walks around. She denies any clear orthopnea, PND although says intermittently when she gets anxious she does get chest pain. When asked about further description of chest pain she has not able to give me much history. She denies any chest pain current point in time. She came in an EKG was noted to have significant T-wave inversion in anterolateral leads. Cardiology consult was sought because of the same. Review of Systems Constitutional: Constitutional: Reports fatigue, Reports poor appetite and Reports weakness Eyes: Eyes: Reports no additional eye complaints Cardiovascular: Cardiovascular: Reports chest pain at rest, Denies syncope, Reports leg edema, Denies lightheadedness, Denies Loss of Consciousness, Denies palpitations and Reports dyspnea on exertion Respiratory: Respiratory: Reports no additional respiratory complaints and Reports dyspnea on exertion Genitourinary: Genitourinary: Reports no additional female genitourinary complaints Musculoskeletal: Musculoskeletal: Reports no additional musculoskeletal complaints Neurologic: Denies syncope and Reports weakness Endocrine: Endocrine: Reports fatigue and Denies palpitations [facility] Past Medical History Medical History Hyperkalemia Acute kidney injury Hyponatremia Acute respiratory failure with hypoxia Femoral neck fracture GERD (gastroesophageal reflux disease) JANAY (generalized anxiety disorder) IBS (irritable bowel syndrome) MDD (major depressive disorder) Pulmonary nodule Current smoker HTN (hypertension) Family History Family History Father Lung cancer Brain cancer Mother CVD (cardiovascular disease) Breast cancer Son In good health Brother In good health Surgical History Surgical History History of cervical discectomy Social History Social History Household Members: None Household Members Other:: self Housing: House Do you presently have visiting nurse or other home services: No Alcohol intake: current Alcohol intake frequency: a few times a month Patient Tobacco Use Status: Current everyday Tobacco user Tobacco use type: Cigarette Cigarette Packs Per Day: 1 Cigarettes Per Day: 20.0 Smoked in Last 30 Days: Yes e-Cigarette/Vaping Use: Never Used Patient Interested in Nicotine Replacement: No Use of substances other than those prescribed or required for medical reasons: No Currently Displaying Signs/Symptoms of Drug Intoxication Withdrawal: No Have you been hit, kicked, punched, or otherwise hurt by someone within the past year? If so, by whom?: No Do you feel safe in your current relationship?: No Current Relationship Is there a partner from a previous relationship who is making you feel unsafe now?: No Are you made to feel afraid or neglected: No Advance Directives: Yes Advance Directives on File: Yes Advance Directives Date on File: 10/21/22 Do you have thoughts of harming others: None Do you have a plan to hurt others: No Plan Recently lost weight without trying: No Eating poorly because of decreased appetite: Yes Patient : No : No Poor oral hygiene: No service: No Current occupational status: retired Cognitive needs: No Hearing needs: No Vision needs: No Meds Allergies Allergy/AdvReac Type Severity Reaction Status Date / Time cat dander Allergy Unknown Unknown Verified 08/03/23 13:14 morphine Allergy Unknown unknown Verified 06/30/23 11:23 seasonal allergies Allergy Unknown Unknown Uncoded 06/30/23 11:09 Active Medications: Current Medications Acetaminophen (Acetaminophen 325 Mg Tablet) 650 mg PO Q6H PRN PRN Reason: Pain, Mild (Pain Scale 1-3) Last Admin: 08/03/23 21:50 Dose: 650 mg Albuterol Sulfate (Albuterol Sulfate 90 Mcg 8 Gm Inhaler) 1 puff INHALE QID PRN PRN Reason: Shortness Of Breath Aspirin (Aspirin 81 Mg Tab.Chew) 81 mg PO DAILY [facility] Last Admin: 08/04/23 09:59 Dose: 81 mg Atorvastatin Calcium (Atorvastatin Calcium 40 Mg Tablet) 40 mg PO BEDTIME [facility] Last Admin: 08/03/23 21:51 Dose: 40 mg Heparin Sodium (Porcine) (Heparin Sodium,Porcine 5,000 Unit/Ml Vial) 1,800 unit 40 unit/kg (1700 unit) IVPUSH PROTOCOL BOLUS PRN; Protocol PRN Reason: 40 unit/kg - Heparin Protocol Last Admin: 08/04/23 10:21 Dose: 1,800 unit Heparin Sodium (Porcine) (Heparin Sodium,Porcine 5,000 Unit/Ml Vial) 3,600 unit 80 unit/kg (3400 unit) IVPUSH PROTOCOL BOLUS PRN; Protocol PRN Reason: 80 unit/kg - Heparin Protocol Ceftriaxone Sodium 1 gm/ (Sodium Chloride) 50 mls @ 100 mls/hr IV Q24H [facility] Last Infusion: 08/03/23 21:50 Dose: Infused Lisinopril (Lisinopril 20 Mg Tablet) 20 mg PO DAILY [facility]; Protocol Last Admin: 08/04/23 10:00 Dose: 20 mg Magnesium Oxide (Magnesium Oxide 400 Mg Tablet) 400 mg PO DAILY [facility] Metoprolol Succinate (Metoprolol Succinate Er 25 Mg Tab.Er.24h) 25 mg PO DAILY [facility]; Protocol Last Admin: 08/04/23 10:00 Dose: 25 mg Montelukast Sodium (Montelukast Sodium 10 Mg Tablet) 10 mg PO DAILY [facility] Multivitamins/Vitamin C (Multivitamin Tablet) 1 tab PO DAILY [facility] Omeprazole (Omeprazole 40 Mg Capsule.Dr) 40 mg PO DAILY@0630 [facility] Ondansetron HCl (Ondansetron Hcl 4 Mg/2 Ml Vial) 4 mg IVPUSH Q8H PRN PRN Reason: Nausea and Vomiting Sodium Chloride (0.9 % Sodium Chloride Flush 3 Ml Syringe) 3 ml IVFLUSH QSHIFT [facility] Last Admin: 08/04/23 10:03 Dose: 3 ml Home Medications Medication Instructions Recorded Confirmed Last Taken Type fluticasone propionate 50 1 spray intranasal BID PRN 10/21/22 08/03/23 Unknown History mcg/actuation nasal Allergic Symptoms spray,suspension (Flonase Allergy Relief) multivitamin 1 tab PO DAILY 10/21/22 08/03/23 10/21/22 History magnesium oxide 400 mg PO DAILY 08/03/23 08/03/23 Unknown History Physical Exam Vital Signs: Vital Signs: Last Vital Signs Temp 97.9 F 08/04/23 11:27 Pulse 76 08/04/23 11:27 Resp 20 08/04/23 11:27 BP 151/78 H 08/04/23 11:27 Pulse Ox 97 08/04/23 11:27 O2 Del Method Room Air 08/04/23 11:27 BMI result Body Mass Index 16.6 Const: General: cooperative, comfortable, no acute distress, alert, awake and anxious Nutritional Appearance: thin and other Orientation/consciousness: patient oriented x3 HEENT: Head: Yes normocephalic and Yes atraumatic Neck: Neck: Yes trachea midline, Yes supple and Yes no JVD Resp: Effort & Inspection: normal respiratory effort Auscultation: clear to auscultation bilaterally and diminished lung sounds Cardio: Jugular venous distension: no JVD Palpation: normal PMI Rate: regular rate Rhythm: regular rhythm Heart sounds: S1 normal heart sound present, S2 normal heart sound present, no click, no gallops, no murmurs and no rubs GI: Auscultation: normal bowel sounds Skin: General skin exam: no rashes or lesions noted Neuro: General: patient oriented x3 and no focal motor deficits Extrem: General: Yes no clubbing, cyanosis or edema Objective Labs and Meds 08/04/23 05:47 08/04/23 05:47 Lab results: Laboratory Results - last 24 hr 08/03/23 08/03/23 08/03/23 13:37 15:27 15:54 WBC 4.8 RBC 3.91 L Hgb 13.6 Hct 39.3 MCV 100.5 H MCH 34.8 H MCHC 34.6 RDW 14.8 Plt Count 171 D MPV 8.6 L Immature Gran % (Auto) 0.2 Neut % (Auto) 70.8 Lymph % (Auto) 19.[address] [place] % (Auto) 9.2 Eos % (Auto) 0.2 Baso % (Auto) 0.4 Lymph # (Auto) 0.[address] [place] # (Auto) 0.4 Eos # (Auto) 0.0 Baso # (Auto) 0.0 Abs Immat Gran (auto) 0.01 Absolute Neuts (auto) 3.4 Absolute Nucleated RBC 0.000 Nucleated RBC % (auto) 0.0 PT 10.7 L INR 0.9 aPTT Heparin Protocol 33.4 L Sodium 136 Potassium 3.1 L D Chloride 100 Carbon Dioxide 27 Anion Gap 12 BUN 13 Creatinine 0.63 Estim Creat Clear Calc 58.1 Estimated GFR > 60 Random Glucose 121 H Calcium 8.4 D Magnesium 1.4 L* Total Bilirubin AST ALT Alkaline Phosphatase Troponin I High Sens 16.6 D B-Natriuretic Peptide 348 H Total Protein Albumin Lipase 12 Urine Color Dark Yellow Urine Appearance Cloudy Urine pH >= 9.0 Ur Specific [place] >= 1.030 H Urine Protein 300 (3+) H Urine Glucose (UA) Negative Urine Ketones Trace Urine Blood Small (1+) H Urine Nitrite Positive H Ur Leukocyte Esterase Moderate (2+) H Urine RBC 3-5 H Urine WBC >50 H Ur Squamous Epith Cells 3-5 Urine Bacteria 4+ Hyaline Casts 6-10 Influenza Type A (PCR) NEGATIVE Influenza Type B (PCR) NEGATIVE RSV RNA Qual (PCR) NEGATIVE SARS-CoV-2 RNA (RT-PCR) NEGATIVE 08/03/23 08/04/23 08/04/23 18:55 00:04 01:57 WBC RBC Hgb Hct MCV MCH MCHC RDW Plt Count MPV Immature Gran % (Auto) Neut % (Auto) Lymph % (Auto) [place] % (Auto) Eos % (Auto) Baso % (Auto) Lymph # (Auto) [place] # (Auto) Eos # (Auto) Baso # (Auto) Abs Immat Gran (auto) Absolute Neuts (auto) Absolute Nucleated RBC Nucleated RBC % (auto) PT INR aPTT Heparin Protocol 116.8 H* D 42.9 L D Sodium 136 Potassium 3.2 L Chloride 102 Carbon Dioxide 26 Anion Gap 11 L BUN 12 Creatinine 0.62 Estim Creat Clear Calc 61.8 Estimated GFR > 60 Random Glucose 87 Calcium 8.2 L Magnesium Total Bilirubin AST ALT Alkaline Phosphatase Troponin I High Sens B-Natriuretic Peptide Total Protein Albumin Lipase Urine Color Urine Appearance Urine pH Ur Specific [place] Urine Protein Urine Glucose (UA) Urine Ketones Urine Blood Urine Nitrite Ur Leukocyte Esterase Urine RBC Urine WBC Ur Squamous Epith Cells Urine Bacteria Hyaline Casts Influenza Type A (PCR) Influenza Type B (PCR) RSV RNA Qual (PCR) SARS-CoV-2 RNA (RT-PCR) 08/04/23 08/04/23 08/04/23 05:47 05:48 08:32 WBC 3.7 L RBC 3.50 L Hgb 12.3 Hct 35.3 L MCV 100.9 H MCH 35.1 H MCHC 34.8 RDW 15.3 Plt Count 164 MPV 9.7 Immature Gran % (Auto) Neut % (Auto) Lymph % (Auto) [place] % (Auto) Eos % (Auto) Baso % (Auto) Lymph # (Auto) [place] # (Auto) Eos # (Auto) Baso # (Auto) Abs Immat Gran (auto) Absolute Neuts (auto) Absolute Nucleated RBC 0.000 Nucleated RBC % (auto) 0.0 PT 10.6 L INR 0.9 aPTT Heparin Protocol 49.5 L Sodium 133 L Potassium 3.5 Chloride 100 Carbon Dioxide 27 Anion Gap 10 L BUN 10 Creatinine 0.57 Estim Creat Clear Calc 65.5 Estimated GFR > 60 Random Glucose 92 Calcium 8.1 L Magnesium 1.8 Total Bilirubin 0.4 AST 21 ALT 7 Alkaline Phosphatase 102 Troponin I High Sens 12.6 B-Natriuretic Peptide Total Protein 5.3 L Albumin 2.6 L Lipase Urine Color Urine Appearance Urine pH Ur Specific [place] Urine Protein Urine Glucose (UA) Urine Ketones Urine Blood Urine Nitrite Ur Leukocyte Esterase Urine RBC Urine WBC Ur Squamous Epith Cells Urine Bacteria Hyaline Casts Influenza Type A (PCR) Influenza Type B (PCR) RSV RNA Qual (PCR) SARS-CoV-2 RNA (RT-PCR) Imaging Radiologist's impression: Impressions Chest X-Ray 08/03/23 14:49 IMPRESSION: No acute cardiopulmonary findings. Hyperinflated lungs suggesting COPD. Head CT 08/03/23 15:27 IMPRESSION: No acute intracranial pathology. Assessment and Plan (1) Abnormal ECG: Status: Acute Abnormal EKG of unclear etiology question related cardiomyopathy/stress-induced cardiomyopathy/coronary artery disease. Her troponins are negative and her symptoms are very atypical for acute myocardial ischemia. She will require inpatient workup given her multiple risk factors. I do not think there is any indication for IV heparin drip at this point time. This can be discontinued. Continue high-intensity statin therapy and aspirin therapy. Continue metoprolol therapy. Can add Norvasc for blood pressure control. She require inpatient echocardiogram to assess LV systolic and diastolic function to assess for wall motion abnormality. If she has significant wall motion abnormality will require cardiac catheterization. If not will pursue with vasodilating myocardial perfusion imaging to further assess for myocardial ischemia. Will follow with her Procedures Date of Service Date of Service: 08/04/23
--- NOTE | 2023-08-04 14:00 | CA_ITS ---
Transthoracic Echocardiogram Patient (Last, First, Middle): Leslie Madden H Gender: Female Date of : 1955 Age: 68 Procedure Date: 08/04/2023 Procedure Type: Transthoracic Echocardiogram Location: [facility] Height: 162.56 cm Weight: 44. kg BSA: 1.44 m2 Heart Rate: 74 bpm BP: 151 / 78 mmHg Retail Service Representative: GADIEL Referring MD: Chely Joiner NP Director Of Content Marketing: Awais Pavon MD Symptoms: Abnormal EKG Study Quality: Adequate ECG Rhythm: Sinus Conclusions: - 1. Normal LV ejection fraction of 60 65% with upper limits of normal wall thickness with impaired relaxation filling pattern 2. Normal cardiac valvular Dopplers 3. Upper limits of normal RV systolic pressure 4. Upper limits of normal ascending aortic size 5. Trivial pericardial effusion Findings Left Ventricle Normal left ventricular size and systolic function. The visually estimated ejection fraction is between 60-65%. Spectral Doppler is indicative of an impaired relaxation filling pattern. Left ventricle wall thickness is at upper limits of normal. Right Ventricle Normal right ventricular cavity size and systolic function. Atria The left atrium is normal in size. There is no evidence of interatrial shunt. The right atrium is normal in size. Aortic Valve Normal aortic valve structure and function. There is no aortic valve stenosis. There is no aortic valve regurgitation. Mitral Valve Normal mitral valve structure and function. There is trace mitral valve regurgitation. There is no mitral valve stenosis. Pulmonic Valve The pulmonic valve is likely normal. Tricuspid Valve Normal tricuspid valve structure. There is trace tricuspid valve regurgitation. The right ventricular systolic pressure is 39 mmHg. Normal right atrial pressure. There is no evidence of pulmonary hypertension. Great Vessels The pulmonary artery was not well visualized. Venous The inferior vena cava is normal in size and collapses greater than 50% with inspiration. Pericardium/Pleural There is a trivial pericardial effusion. Prior Study Comparison No prior study available for comparison. Measurements 2D Linear Measurements IVSd: 1.14 0.6-0.9/0.6-1.0 cm LVIDd: 3.22 3.9-5.3/4.2-5.9 cm LVIDd Index: 2.24 2.4-3.2/2.2-3.1 cm/m2 LVIDs: 1.82 2.0-3.6 cm LVPWd: 1.12 0.7-1.1 cm LA Diam: 3.10 2.7-3.8/3.0-4.0 cm LAIDs Index: 2.15 1.5-2.3 cm/m2 LV Mass: 136.43 67-162/88-224 g LV Mass Index: 94.74 43-95/49-115 g/m2 LVOT Diam: 2.00 3.0+(-)1.3 cm 2D Systolic Function EF 4C: 62.80 >55% EF 2C: 65.00 >55% EF BiP: 65.70 >55% Mitral Valve MV Pk E: 0.81 MV PK A: 0.77 MV Decel Time: 196.00 E/A: 1.10 E'Lateral: 4.68 E'Medial: 4.79 E/E' Med: 17.00 E/E' Lat: 17.40 PHT: 57.00 MVA PHT: 3.86 Decel [place]linger: 4.15 Aortic Valve AoV Pk [place]: 0.81 AoV Pk Grad: 3.00 GENET: 3.23 LVOT LVOT Pk [place]: 0.76 LVOT Mn [place]: 0.51 LVOT VTI: 0.18 LVOT Pk Grad: 2.00 LVOT Mn Grad: 1.00 LVOT Diam: 2.00 LVOT Area: 3.14 Diastolic Function MV Pk E: 0.81 MV Pk A: 0.77 E/A: 1.10 E'Medial: 4.79 E/E' Med: 17.00 E' Laterial: 4.68 E/E' Lat: 17.40 Right Ventricle TVS' [place]: 12.70 Tricuspid Valve TR Pk [place]: 3.02 TR Pk Grad: 36.00 RA Press: 3.00 RVSP: 39.00 Great Vessels Aorta Sinus of Valsalva: 3.20 2.0-3.5 cm Ao Asc: 3.60 2.1-3.4 cm Pulmonary Valve PV Pk [place]: 0.65 Peak PV Grad: 2.00 Updated in Other Vendor System with Status of Final Awais Pavon MD electronically signed on 08/05/2023 10:09:32 AM with status of Final
[2023-08-04 14:27] VITALS: BMI 16.6
--- NOTE | 2023-08-04 15:02 | MHC.CM.PN ---
CM ATTEMPTED TO MEET WITH PT BEDSIDE IMAGING IN PROGRESS CM TO REVISIT
[2023-08-04 15:10] VITALS: BP 179/89; PULSE 69; RESP 19; TEMP 36.4; O2SAT 96
--- NOTE | 2023-08-04 16:16 | MHC.CM.PN ---
PT REPORTS SHE LIVES ALONE BUT HER BROTHER LIVES DOWNSTAIRS AND PROVIDES ASSISTANCE IF NEEDED SHE HAS NO SERVICES AND NO DME HCP ON FILE PCP: ELLI ALBARRAN IMM DELIVERED DCP: HOME NO SERVICES VIA FAMILY TRANSPORT
[2023-08-04] MEDS: cefTRIAXone sodium 1 GM in 0.9 % Sodium Chloride 50 ML IV (17:25)
[2023-08-04] MEDS: Acetaminophen 325 MG TABLET 650 MG PO (17:26)
[2023-08-04 19:51] VITALS: BP 131/79; PULSE 67; RESP 17; TEMP 36.5; O2SAT 94
[2023-08-04] MEDS: Atorvastatin Calcium 40 MG TABLET PO (20:03)
[2023-08-04] MEDS: Ibuprofen 200 MG TABLET PO (22:40)
[2023-08-05] VITALS (7 sets, daily range): BP systolic 103–172; BP diastolic 67–93; PULSE 65–76; RESP 14–20; TEMP 36.1–36.6; O2SAT 92–99
[2023-08-05] MEDS: Melatonin 3 MG TABLET 6 MG PO ×2 (01:31→20:08)
[2023-08-05] MEDS: Omeprazole 40 MG CAPSULE.DR PO (04:57)
[2023-08-05] MEDS: amLODIPine Besylate 5 MG TABLET PO (04:58)
[2023-08-05 07:15] LABS: Anion Gap 12 (12-20); Blood Urea Nitrogen 10 mg/dL (9-16); Calcium 8.1 mg/dL (8.4-10.2); Carbon Dioxide 25 mmol/L (22-29); Chloride 99 mmol/L (96-108); Creatinine Clr Calc Pharmacy 70.6; Estimated Glomerular Filt Rate > 60; Glucose Random 95 mg/dL (60-115); Potassium 3.8 mmol/L (3.3-5.1); Sodium 132 mmol/L (135-145)
[2023-08-05] MEDS: Aspirin 81 MG TAB.CHEW PO (07:40)
[2023-08-05] MEDS: Metoprolol Succinate ER 25 MG TAB.ER.24H PO (07:40)
[2023-08-05] MEDS: Montelukast Sodium 10 MG TABLET PO (07:40)
[2023-08-05] MEDS: Magnesium Oxide 400 MG TABLET PO (07:40)
[2023-08-05] MEDS: Multivitamin TABLET 1 TAB PO (07:41)
[2023-08-05] MEDS: lisinopriL 20 MG TABLET PO (07:41)
[2023-08-05] MEDS: 0.9 % Sodium Chloride Flush 3 ML SYRINGE IVFLUSH ×2 (07:41→16:59)
--- NOTE | 2023-08-05 10:44 | HO.PM.IMPN ---
Subjective Subjective Date of Service: 08/05/23 Review of Systems Follow up NSTEMI no chest pain, nausea or vomiting Physical Exam Vital Signs: Vital Signs: Last Vital Signs Temp 97.0 F 08/05/23 07:25 Pulse 70 08/05/23 07:25 Resp 20 08/05/23 07:25 BP 163/91 H 08/05/23 07:25 Pulse Ox 92 08/05/23 07:25 O2 Del Method Room Air 08/05/23 07:25 BMI result Body Mass Index 16.6 Appearing in no acute distress lung sounds are clear to auscultation heart regular rate rhythm, clear S1, S2 positive bowel sounds, abdomen is soft, nontender neuro patient is alert x3, no focal deficits Objective Data Active Medications Acetaminophen (Acetaminophen 325 Mg Tablet) 650 mg PO Q6H PRN PRN Reason: Pain, Mild (Pain Scale 1-3) Last Admin: 08/04/23 17:26 Dose: 650 mg Documented By: LAKIA Albuterol Sulfate (Albuterol Sulfate 90 Mcg 8 Gm Inhaler) 1 puff INHALE QID PRN PRN Reason: Shortness Of Breath Amlodipine Besylate (Amlodipine Besylate 5 Mg Tablet) 5 mg PO DAILY [facility]; Protocol Last Admin: 08/05/23 04:58 Dose: 5 mg Documented By: ELIU Aspirin (Aspirin 81 Mg Tab.Chew) 81 mg PO DAILY [facility] Last Admin: 08/05/23 07:40 Dose: 81 mg Documented By: BRYANNA Atorvastatin Calcium (Atorvastatin Calcium 40 Mg Tablet) 40 mg PO BEDTIME [facility] Last Admin: 08/04/23 20:03 Dose: 40 mg Documented By: KALIE Heparin Sodium (Porcine) (Heparin Sodium,Porcine 5,000 Unit/Ml Vial) 1,800 unit 40 unit/kg (1700 unit) IVPUSH PROTOCOL BOLUS PRN; Protocol PRN Reason: 40 unit/kg - Heparin Protocol Last Admin: 08/04/23 10:21 Dose: 1,800 unit Documented By: LAKIA Heparin Sodium (Porcine) (Heparin Sodium,Porcine 5,000 Unit/Ml Vial) 3,600 unit 80 unit/kg (3400 unit) IVPUSH PROTOCOL BOLUS PRN; Protocol PRN Reason: 80 unit/kg - Heparin Protocol Ceftriaxone Sodium 1 gm/ (Sodium Chloride) 50 mls @ 100 mls/hr IV Q24H [facility] Last Infusion: 08/04/23 18:31 Dose: Infused Documented By: LAKIA Lisinopril (Lisinopril 20 Mg Tablet) 20 mg PO DAILY [facility]; Protocol Last Admin: 08/05/23 07:41 Dose: 20 mg Documented By: BRYANNA Magnesium Oxide (Magnesium Oxide 400 Mg Tablet) 400 mg PO DAILY [facility] Last Admin: 08/05/23 07:40 Dose: 400 mg Documented By: BRYANNA Melatonin (Melatonin 3 Mg Tablet) 6 mg PO BEDTIME PRN PRN Reason: Insomnia Last Admin: 08/05/23 01:31 Dose: 6 mg Documented By: ELIU Metoprolol Succinate (Metoprolol Succinate Er 25 Mg Tab.Er.24h) 25 mg PO DAILY [facility]; Protocol Last Admin: 08/05/23 07:40 Dose: 25 mg Documented By: BRYANNA Montelukast Sodium (Montelukast Sodium 10 Mg Tablet) 10 mg PO DAILY [facility] Last Admin: 08/05/23 07:40 Dose: 10 mg Documented By: BRYANNA Multivitamins/Vitamin C (Multivitamin Tablet) 1 tab PO DAILY [facility] Last Admin: 08/05/23 07:41 Dose: 1 tab Documented By: BRYANNA Omeprazole (Omeprazole 40 Mg Capsule.Dr) 40 mg PO DAILY@0630 [facility] Last Admin: 08/05/23 04:57 Dose: 40 mg Documented By: ELIU Ondansetron HCl (Ondansetron Hcl 4 Mg/2 Ml Vial) 4 mg IVPUSH Q8H PRN PRN Reason: Nausea and Vomiting Sodium Chloride (0.9 % Sodium Chloride Flush 3 Ml Syringe) 3 ml IVFLUSH QSHIFT [facility] Last Admin: 08/05/23 07:41 Dose: 3 ml Documented By: BRYANNA Labs 08/04/23 05:47 08/05/23 06:10 Labs: Laboratory Results - last 24 hr 08/05/23 08/05/23 06:10 06:20 Hold Purple Top SEE NOTE Anion Gap 12 Estim Creat Clear Calc 70.6 Estimated GFR > 60 Random Glucose 95 Calcium 8.1 L Microbiology Microbiology Results: Microbiology 08/03/23 16:11 Urine Culture - Preliminary Urine clean catch - Urine britton top Culture in progress. Assessment and Plan (1) ELIF (acute kidney injury): Status: Acute Plan 68-year-old woman admitted with chest pain secondary to possible NSTEMI NSTEMI vs myocarditis/pericarditis Recent RSV diagnosis on 06/30/2023 Deep T-wave inversions in anterior leads, new from previous IV heparin drip stopped as per cardiology Monitor on telemetry Aspirin, statin. BB cardiology following> stress test today and echo UTI Rocephin Follow urine cultures Hypomagnesemia/hypokalemia repleted continue to monitor, repeat labs at 19:00 and replete as necessary Hypertension stable BP On lisinopril at home Continue home medications when medication reconciliation is completed GERD Continue PPI Asthma No exacerbation Continue inhalers as needed Smoker Offered nicotine replacement and declined, will order if patient requests Protein calorie malnutrition. BMI 17.1 Increase oral intake Add protein to diet Medication reconciliation is pending DVT prophylaxis with IV heparin Attending Dr. Gonzalez Full code continue hopsital stay for tx of NSTEMI requiring IV heparin drip and specialty consultation Quality Stroke Does the patient have a stroke diagnosis?: No VTE Prior VTE?: No VTE Risk Level:: Medical - moderate - high VTE Device Contraindication: Treatment Not Indicated VTE Drug Contraindication: N/A - Med Ordered
--- NOTE | 2023-08-05 11:05 | PM.PNCARD ---
Subjective Subjective Date of Service: 08/05/23 Principal diagnosis: Abnormal EKG Interval history: Patient says she feels the same. Very nonspecific symptoms. Complains of weakness and fatigue. No chest pain. Echocardiogram at bedside shows normal LV ejection fraction with mild LVH. Stress test pending Review of Systems Constitutional: Reports fatigue, Reports poor appetite and Reports weakness Eyes: Reports no additional eye complaints Cardiovascular: Reports chest pain at rest, Denies syncope, Reports leg edema, Denies lightheadedness, Denies Loss of Consciousness, Denies palpitations and Reports dyspnea on exertion Respiratory: Reports no additional respiratory complaints and Reports dyspnea on exertion Genitourinary: Reports no additional female genitourinary complaints Musculoskeletal: Reports no additional musculoskeletal complaints Denies syncope and Reports weakness Endocrine: Reports fatigue and Denies palpitations Physical Exam Vital Signs: Last Vital Signs Temp 97.0 F 08/05/23 07:25 Pulse 70 08/05/23 07:25 Resp 20 08/05/23 07:25 BP 163/91 H 08/05/23 07:25 Pulse Ox 92 08/05/23 07:25 O2 Del Method Room Air 08/05/23 07:25 BMI result Body Mass Index 16.6 Const General: cooperative, comfortable, no acute distress, alert, awake and anxious Nutritional Appearance: thin and other Orientation/consciousness: patient oriented x3 HEENT Head: Yes normocephalic and Yes atraumatic Neck Neck: Yes trachea midline, Yes supple and Yes no JVD Resp Effort & Inspection: normal respiratory effort Auscultation: clear to auscultation bilaterally and diminished lung sounds Cardio Jugular venous distension: no JVD Palpation: normal PMI Rate: regular rate Rhythm: regular rhythm Heart sounds: S1 normal heart sound present, S2 normal heart sound present, no click, no gallops, no murmurs and no rubs GI Auscultation: normal bowel sounds Skin General skin exam: no rashes or lesions noted Neuro General: patient oriented x3 and no focal motor deficits Extrem General: Yes no clubbing, cyanosis or edema Objective Labs and Meds 08/04/23 05:47 08/05/23 06:10 Lab results: Laboratory Results - last 24 hr 08/05/23 08/05/23 06:10 06:20 Hold Purple Top SEE NOTE Sodium 132 L Potassium 3.8 Chloride 99 Carbon Dioxide 25 Anion Gap 12 BUN 10 Creatinine 0.53 Estim Creat Clear Calc 70.6 Estimated GFR > 60 Random Glucose 95 Calcium 8.1 L Progress Note: A&P Assessment and plan (1) Abnormal ECG: Status: Acute Assessment and Plan: Abnormal EKG with normal troponins and atypical symptoms. Echo shows normal LV ejection fraction with possible mild LVH. Myocardial ischemia needs to be ruled out. Will wait for the results of stress testing. If this is within normal limits, most likely repolarization abnormality related to hypertensive heart disease. She is unusual. Continue aggressive control blood pressure, this is not well optimized. Can increase amlodipine to 10 mg daily. Further treatment based on the findings of the stress test. Thank you for allowing me to partake in her Time Spent With Patient Time: Total time managing care of this patient today ____ minutes. Progress Note: Quality Stroke Does the patient have a stroke diagnosis?: No Procedures Date of Service Date of Service: 08/05/23
[2023-08-05] MEDS: Acetaminophen 325 MG TABLET 650 MG PO ×2 (13:23→20:08)
[2023-08-05] MEDS: cefTRIAXone sodium 1 GM in 0.9 % Sodium Chloride 50 ML IV (16:59)
[2023-08-05] MEDS: Atorvastatin Calcium 40 MG TABLET PO (20:08)
[2023-08-06] VITALS: BP 113/71; PULSE 70; RESP 16; TEMP 36.4; O2SAT 95
[2023-08-06] MEDS: 0.9 % Sodium Chloride Flush 3 ML SYRINGE IVFLUSH ×2 (00:01→08:19)
[2023-08-06 03:50] VITALS: BP 134/78; PULSE 67; RESP 18; TEMP 36.8; O2SAT 99
[2023-08-06] MEDS: Omeprazole 40 MG CAPSULE.DR PO (05:49)
[2023-08-06 07:08] VITALS: BP 136/76; PULSE 73; RESP 18; TEMP 36.2; O2SAT 96
[2023-08-06] MEDS: Magnesium Oxide 400 MG TABLET PO (08:17)
[2023-08-06] MEDS: Metoprolol Succinate ER 25 MG TAB.ER.24H PO (08:17)
[2023-08-06] MEDS: Montelukast Sodium 10 MG TABLET PO (08:17)
[2023-08-06] MEDS: lisinopriL 20 MG TABLET PO (08:17)
[2023-08-06] MEDS: Aspirin 81 MG TAB.CHEW PO (08:17)
[2023-08-06] MEDS: Multivitamin TABLET 1 TAB PO (08:17)
[2023-08-06] MEDS: amLODIPine Besylate 10 MG TABLET PO (08:17)
--- NOTE | 2023-08-06 09:36 | MHC.CLN ---
F/U DIET=2 GRAM SODIUM. PO DOC SHOWS 75% X 2. PATIENT WITH MODERATE MALNUTRITION AND LOW BODY WEIGHT (BMI=16.7). ENSURE BID TO INCREASE NUTRITIONAL INTAKE. PROVIDES 700 KCALS, 40 G PROTEIN. FOLLOW FOR MEAL INTAKE AND WEIGHT.
--- NOTE | 2023-08-06 09:57 | PM.PNCARD ---
Subjective Subjective Date of Service: 08/06/23 Principal diagnosis: Abnormal EKG Interval history: No new cardiac symptoms Review of Systems Constitutional: Reports fatigue, Reports poor appetite and Reports weakness Eyes: Reports no additional eye complaints Cardiovascular: Reports chest pain at rest, Denies syncope, Reports leg edema, Denies lightheadedness, Denies Loss of Consciousness, Denies palpitations and Reports dyspnea on exertion Respiratory: Reports no additional respiratory complaints and Reports dyspnea on exertion Genitourinary: Reports no additional female genitourinary complaints Musculoskeletal: Reports no additional musculoskeletal complaints Denies syncope and Reports weakness Endocrine: Reports fatigue and Denies palpitations Physical Exam Vital Signs: Last Vital Signs Temp 97.2 F 08/06/23 07:08 Pulse 73 08/06/23 07:08 Resp 18 08/06/23 07:08 BP 136/76 08/06/23 07:08 Pulse Ox 96 08/06/23 07:08 O2 Del Method Room Air 08/06/23 07:08 BMI result Body Mass Index 16.6 Const General: cooperative, comfortable, no acute distress, alert, awake and anxious Nutritional Appearance: thin and other Orientation/consciousness: patient oriented x3 HEENT Head: Yes normocephalic and Yes atraumatic Neck Neck: Yes trachea midline, Yes supple and Yes no JVD Resp Effort & Inspection: normal respiratory effort Auscultation: clear to auscultation bilaterally and diminished lung sounds Cardio Jugular venous distension: no JVD Palpation: normal PMI Rate: regular rate Rhythm: regular rhythm Heart sounds: S1 normal heart sound present, S2 normal heart sound present, no click, no gallops, no murmurs and no rubs GI Auscultation: normal bowel sounds Skin General skin exam: no rashes or lesions noted Neuro General: patient oriented x3 and no focal motor deficits Extrem General: Yes no clubbing, cyanosis or edema Objective Labs and Meds 08/04/23 05:47 08/05/23 06:10 Progress Note: A&P Assessment and plan (1) Abnormal ECG: Status: Acute Assessment and Plan: Abnormal EKG without any clear evidence of acute coronary syndrome. Echocardiogram shows normal LV systolic function with Mibi mild LVH. Myocardial perfusion imaging reduce her pending. If these are within normal limits patient can be discharged home and follow-up as outpatient. Continue aggressive control blood pressure and current medications. Will sign of the case. Thank you for allowing us to partake in the care Time Spent With Patient Time: Total time managing care of this patient today ____ minutes. Progress Note: Quality Stroke Does the patient have a stroke diagnosis?: No Procedures Date of Service Date of Service: 08/06/23
--- NOTE | 2023-08-06 10:15 | MHC.CM.PN ---
Per MD in [facility], Patient us not yet medically cleared for dc (IV Ceftriaxone, IV Heparin); home is the goal and CM will continue to follow.
[2023-08-06 10:59] VITALS: BP 112/68; PULSE 76; RESP 18; TEMP 36.2; O2SAT 94
--- NOTE | 2023-08-06 13:25 | MHC.CM.PN ---
Per PT, the recommendation is for home/self care. CM will follow.
[2023-08-06] MEDS: Acetaminophen 325 MG TABLET 650 MG PO (13:42)
[2023-08-06 13:44] VITALS: BP 112/68; PULSE 76; O2SAT 94
--- NOTE | 2023-08-06 14:12 | PM.DS ---
DS: Providers Provider Date of Service: 08/06/23 Date of admission: 08/03/23 15:03 Date of discharge: 08/06/23 Primary care physician: Michel Dodd PA-C Consults: 08/04/23 07:33 Consult to Cardiology Routine Consulting Provider: [facility] Cardiovascular Services Reason for consultation: NSTEMI DS: Diagnosis Discharge Diagnosis (1) Abnormal ECG: Status: Acute DS: Summary Hospital Course Hospital Course: 68-year-old woman with complaints of generalized leg swelling and chest pain over the last week. She reports that she was diagnosed with RSV on 06/30/2023 and was feeling unwell. Patient reported some mild shortness of breath with nausea, constipation and diarrhea but she does have a history of IBS and that may be contributing to that. Denied any recent fever, sick contacts, chills, recent travel. She smokes a pack of cigarettes a day and has for many decades. EKG showing deep T-wave inversions to anterior leads but normal troponin of 16.6, BNP 348, magnesium 1.4, potassium 3.1, negative flu or COVID, no fever leukocytosis noted. Patient was given potassium, started on IV heparin, aspirin in the ER. She will be admitted for further management and treatment of question NSTEMI versus myocarditis/pericarditis recent RSV. Hospital Course Patient started on heparin drip and admitted to telemetry. 2D echo failed to demonstrate any acute abnormalities; wall motion normal. Lexiscan done 08/04/2023 without acute abnormalities. Discussed with Cardiology patient will be discharged home with med adjustments as outlined and follow-up with PCP next available Time Attestation Discharge coordination time: Greater than 30 minutes Quality: Safe Use of Opioids Does Pt have an Active Cancer Diagnosis on the Problem List?: No Quality: Stroke Does the patient have a stroke diagnosis?: No Physical Exam Vital Signs: Vital Signs: Last Vital Signs Temp 97.1 F 08/06/23 10:59 Pulse 76 08/06/23 13:44 Resp 18 08/06/23 10:59 BP 112/68 08/06/23 13:44 Pulse Ox 94 08/06/23 13:44 O2 Del Method Room Air 08/06/23 10:59 BMI result Body Mass Index 16.6 Const: Other: Awake alert no acute distress Resp: Other: Clear to auscultation bilaterally no rales rhonchi or wheezes Cardio: Other: No S4; positive S1-S2; no S3 murmurs rubs or gallops GI: Other: Soft nontender nondistended normoactive bowel sounds Extrem: Other: No edema bilaterally DS: Data Data Completed and Pending Completed studies during hospitalization [Text1]: Procedures Replacement of Left Hip Joint with Synthetic Substitute, Cemented, Open Approach (02/20/23) Labs on day of discharge: Preliminary micro results at discharge 08/03/23 16:11 Urine Culture - Preliminary Urine clean catch - Urine britton top Proteus mirabilis Enterococcus/Streptococcus sp Discharge Plan Discharge Anticipated Discharge Date/Time: 08/06/23 14:02 Patient Disposition: Home, Self-Care Discharge Diagnosis: Abnormal EKG Referrals: Michel Dodd PA-C [Primary Care Provider] - 1 Week Discharge Medications: New atorvastatin 40 mg Tablet 40 mg PO BEDTIME Qty: 30 0RF amlodipine 10 mg Tablet 10 mg PO DAILY Qty: 30 2RF Protocol: Hold for SBP< HOLD for SBP < : 90 aspirin 81 mg Tablet,Chewable 81 mg PO DAILY Qty: 30 2RF Continued (DME) back brace Misc See Rx Instructions .Route Qty: 1 0RF Rx Instructions: As directed omeprazole 40 mg capsule,delayed release(DR/EC) 40 mg PO DAILY Qty: 90 1RF lisinopril 20 mg tablet 20 mg PO DAILY 90 Days Qty: 90 1RF albuterol sulfate 90 mcg/actuation HFA aerosol inhaler 1 puff inhalation QID PRN (Reason: Shortness Of Breath) Qty: 18 3RF montelukast 10 mg tablet 10 mg PO DAILY 90 Days Qty: 90 3RF metoprolol succinate 25 mg tablet extended release 24 hr 25 mg PO DAILY Qty: 90 2RF acetaminophen 325 mg Tablet 650 mg PO Q6H PRN (Reason: Pain, Mild (Pain Scale 1-3)) 30 Days Qty: 420 0RF fluticasone propionate [Flonase Allergy Relief] 50 mcg/actuation spray,suspension 1 spray intranasal BID PRN (Reason: Allergic Symptoms) Rx Instructions: administer into each nostril multivitamin Tablet 1 tab PO DAILY magnesium oxide 400 mg magnesium Tablet 400 mg PO DAILY (DME) blood pressure test kit-small Kit See Rx Instructions .Route Qty: 1 0RF Rx Instructions: As directed Discharge Orders: Discharge Order (Routine); Ordered 08/06/23 Ordered By: Chidi Tony Diet: Advance to usual diet Activity on Discharge: As tolerated Stand Alone Forms: Patient Portal Discharge page Care Plan Goals: Resume all medicines as taken prior to hospital Health Concerns: Aspirin 81 mg daily has been added to regimen along with atorvastatin 40 mg daily and amlodipine 10 mg daily Plan of Treatment: Follow-up with Dr. Choi in the office. His office will call with appointment. Follow up with PCP next available Assessment: See discharge summary
--- NOTE | 2023-08-06 14:16 | MHC.CM.PN ---
Patient has been medically cleared for dc to home today, self care. Last IMM addressed on 08/04/2023.
== END 2023-08-06 16:00 | disposition home or self-care (01) | DRG 690 ==
LOC: HO.ED 14:28 → HO.EDOVER 15:08 → HO.IMC 20:10
PROVIDERS: Physician Assistant Medical; Student in an Organized Health Care Education/Training Program; Admitting Provider Nurse Practitioner Acute Care; Emergency Provider Emergency Medicine; PCP Physician Assistant; Visit Provider Hospitalist
DX: N39.0 Urinary tract infection, site not specified (principal); E46 Unspecified protein-calorie malnutrition; Z68.1 Body mass index [BMI] 19.9 or less, adult; F17.210 Nicotine dependence, cigarettes, uncomplicated; R94.31 Abnormal electrocardiogram [ECG] [EKG]; E87.6 Hypokalemia; J44.9 Chronic obstructive pulmonary disease, unspecified; I10 Essential (primary) hypertension; K21.9 Gastro-esophageal reflux disease without esophagitis; Z20.822 Contact with and (suspected) exposure to COVID-19; E83.42 Hypomagnesemia; Z71.6 Tobacco abuse counseling; Z79.82 Long term (current) use of aspirin; Z79.899 Other long term (current) drug therapy
CPT/HCPCS: 0241U; 36415; 70450; 71045; 78452; 80048; 80053; 81001; 81003; 83690; 83735; 83880; 84484; 85025; 85027; 85610; 85730; 87086; 87088; 87186; 93005; 93017; 93306; 97162; 99285; A9500; J0280; J0696; J1644; J2785; J3475

== ENCOUNTER → 2023-08-03 13:24 | Outpatient (BNV) | payer MEDICARE, SELFPAY | PROVIDERS: Admitting Provider Nurse Practitioner Acute Care; Emergency Provider Emergency Medicine; PCP Physician Assistant; Visit Provider Internal Medicine Cardiovascular Disease | DX: R07.9 Chest pain, unspecified (principal); R94.31 Abnormal electrocardiogram [ECG] [EKG] | CPT/HCPCS: 93010 ==

== ENCOUNTER 2023-08-03 15:03 | Outpatient (BNV) | payer MEDICARE, SELFPAY | END 2023-08-05 11:00 | PROVIDERS: Admitting Provider Nurse Practitioner Acute Care; Emergency Provider Emergency Medicine; PCP Physician Assistant; Visit Provider Internal Medicine | DX: R94.31 Abnormal electrocardiogram [ECG] [EKG] (principal); R07.9 Chest pain, unspecified | CPT/HCPCS: 78452 ==

== ENCOUNTER 2023-08-03 15:03 | Outpatient (BNV) | payer MEDICARE, SELFPAY | END 2023-08-04 14:00 | PROVIDERS: Admitting Provider Nurse Practitioner Acute Care; Emergency Provider Emergency Medicine; PCP Physician Assistant; Visit Provider Internal Medicine Cardiovascular Disease | DX: R94.31 Abnormal electrocardiogram [ECG] [EKG] (principal); R07.9 Chest pain, unspecified | CPT/HCPCS: 93016; 93018; 93306 ==

== ENCOUNTER → 2023-08-03 15:03 | Outpatient (BNV) | payer MEDICARE, SELFPAY | PROVIDERS: Admitting Provider Nurse Practitioner Acute Care; Emergency Provider Emergency Medicine; PCP Physician Assistant; Visit Provider Internal Medicine Cardiovascular Disease | DX: R94.31 Abnormal electrocardiogram [ECG] [EKG] (principal) | CPT/HCPCS: 99222; 99233 ==

== ENCOUNTER → 2023-08-03 15:03 | Outpatient (BNV) | payer MEDICARE, SELFPAY | PROVIDERS: Admitting Provider Nurse Practitioner Acute Care; Emergency Provider Emergency Medicine; PCP Physician Assistant; Visit Provider Nurse Practitioner Acute Care | DX: I21.4 Non-ST elevation (NSTEMI) myocardial infarction (principal); R94.31 Abnormal electrocardiogram [ECG] [EKG]; N39.0 Urinary tract infection, site not specified; N17.9 Acute kidney failure, unspecified | CPT/HCPCS: 99223; 99232; 99238 ==

== ENCOUNTER 2023-08-11 13:10 | Outpatient (AMB) | payer MEDICARE, SELFPAY ==
--- NOTE | 2023-08-11 13:27 | MHC.PC.OV ---
Vital Signs 08/11/23 13:30 Height 5 ft 4 in Weight 96 lb 6 oz BMI 16.5 BP 118/68 Blood Pressure Location Lt brachial Position Sitting Pulse 100 Pulse Source Pulse Oximeter Pulse Oximetry (%) 99 Oxygen Delivery Method Room Air Intake Visit Reasons: [facility] High BP Intake Note: Patient is here for hospital discharge follow up. Patient was discharged from [facility] on 08/06/23 due to elevated BP and chest pain and unable to breathe. Quality Assurance Supervisor Required: No Accompanied by: Self / Same As Patient Allergies cat dander Allergy (Unknown, Verified 08/11/23 13:43) Unknown morphine Allergy (Unknown, Verified 08/11/23 13:43) unknown seasonal allergies Allergy (Unknown, Uncoded 08/11/23 13:36) Unknown Medication List - Last Reconciled 08/11/23 by Michel Dodd PA-C acetaminophen 650 mg (2 x 325 mg) PO Q6H PRN 30 days albuterol sulfate 90 mcg/actuation 1 puff inhalation QID PRN amlodipine 10 mg See Protocol PO DAILY aspirin 81 mg PO DAILY atorvastatin 40 mg PO BEDTIME back brace As directed blood pressure test kit-small As directed cefuroxime axetil 500 mg PO BID 7 days fluticasone propionate 50 mcg/actuation (Flonase Allergy Relief) 1 spray intranasal BID PRN lisinopril 20 mg PO DAILY 90 days magnesium oxide 400 mg PO DAILY metoprolol succinate ER 25 mg PO DAILY montelukast 10 mg PO DAILY 90 days multivitamin 1 tab PO DAILY omeprazole 40 mg PO DAILY Tobacco use date assessed: 06/30/23 Fall risk assessment: No Falls in past year Last assessed Fall Risk: 08/11/23 HPI [facility] High BP HPI Details Patient is a 68-year-old female here today for hospital discharge follow-up. She was seen and admitted in mid June 2023 feeling unwell. She was recently diagnosed with RSV at the time. While in the ER she did have EKG showing deep T-wave inversions in anterior leads. She was started on IV heparin, aspirin and admitted. There is some question of an NSTEMI versus pericarditis due to recent RSV infection. While hospitalized patient did undergo cardiac stress test without any acute abnormalities. Patient was started on amlodipine and atorvastatin. Reports she feels a bit better though continues to have intermittent dizziness. She feels to gain any weight. She attributes this to her upper GI issues/ IBS. Laboratory Tests 10/29/18 03/09/19 03/09/19 14:56 11:08 11:08 RBC Hgb Hct MCV 105.1 H Sodium B-Natriuretic Pept fernando Cholesterol LDL Cholesterol, C alc Vitamin B12 302 Vit D 1,25-Dihyd T otal 47 Folate 4.4 TSH Zinc 52 L Tiss Transglutamin IgA Anti-Gliadin IgG A b 05/20/19 05/20/19 09/14/20 12:33 12:33 12:20 RBC Hgb Hct MCV 111.7 H Sodium B-Natriuretic Pept fernando Cholesterol 218 LDL Cholesterol, C alc 126 Vitamin B12 Vit D 1,25-Dihyd T otal Folate TSH 2.71 Zinc Tiss Transglutamin IgA 1 Anti-Gliadin IgG A b 4 06/22/22 06/22/22 03/13/23 08:32 08:32 15:31 RBC 3.39 L 2.80 L Hgb 9.8 L Hct 36.2 L MCV 106.8 H 105.4 H Sodium B-Natriuretic Pept fernando Cholesterol 228 LDL Cholesterol, C alc 127 Vitamin B12 Vit D 1,25-Dihyd T otal Folate TSH 2.56 Zinc Tiss Transglutamin IgA Anti-Gliadin IgG A b 03/13/23 08/04/23 08/05/23 15:53 05:47 06:10 RBC Hgb Hct MCV Sodium 133 L 132 L B-Natriuretic Pept fernando 583 H Cholesterol LDL Cholesterol, C alc Vitamin B12 Vit D 1,25-Dihyd T otal Folate TSH Zinc Tiss Transglutamin IgA Anti-Gliadin IgG A b [facility] Medical History Hyponatremia Hyperkalemia Acute kidney injury Acute respiratory failure with hypoxia Femoral neck fracture GERD (gastroesophageal reflux disease) JANAY (generalized anxiety disorder) IBS (irritable bowel syndrome) MDD (major depressive disorder) Pulmonary nodule Current smoker HTN (hypertension) Surgical History History of cervical discectomy Family History Father Lung cancer Brain cancer Mother CVD (cardiovascular disease) Breast cancer Son In good health Brother In good health Social History Household Members: None Household Members Other:: self Housing: House Do you presently have visiting nurse or other home services: No Alcohol intake: current Alcohol intake frequency: a few times a month Patient Tobacco Use Status: Current everyday Tobacco user Tobacco use type: Cigarette Cigarette Packs Per Day: 1 Cigarettes Per Day: 20.0 e-Cigarette/Vaping Use: Never Used Advance Directives Date on File: 10/21/22 service: No Current occupational status: retired Cognitive needs: No Hearing needs: No Vision needs: No Questionnaire Thrive Questionnaire Date Thrive assessed: 08/04/23 JANAY-7 AMB Questionnaire JANAY-7 Date JANAY - 7 assessed: 06/30/23 Source: Developed by Drs. Sal Porras, Alma Marks, Amado Kaur and colleagues, with an educational katya from [employer]. Physical exam (Primary Care) BMI result Body Mass Index 16.5 Tobacco/Smoking Status: Tobacco use Status Tobacco use date assessed 06/30/23 08/11/23 13:28 Patient Tobacco Use Status Current everyday Tobacco 08/11/23 13:28 Tobacco use type Cigarette 08/11/23 13:28 e-Cigarette/Vaping Use Never Used 08/11/23 13:28 Thrive Assessment: Date of Thrive Assessment Date Thrive assessed 08/04/23 08/11/23 13:28 Neck Carotids: bruit on the right Assessment and Plan Assessment & Plan (1) Dysphagia: Code(s): R13.10 - Dysphagia, unspecified Qualifiers: Dysphagia type: pharyngeal phase Qualified Code(s): R13.13 - Dysphagia, pharyngeal phase Plan: Continues to have chronic dysphagia. Has a small meals. She does seem malnutrition and she does have microcytic anemia. Will send for barium swallow to evaluate for esophageal stricture. Refer to GI for possible endoscopy (2) Hyponatremia: Code(s): E87.1 - Hypo-osmolality and hyponatremia Plan: Advised to increase sodium in her diet. (3) Macrocytic anemia: Code(s): D53.9 - Nutritional anemia, unspecified Plan: Noted macrocytic anemia. Likely due to her diet. She denies any excessive use of alcohol. (4) Carotid bruit: Code(s): R09.89 - Other specified symptoms and signs involving the circulatory and respiratory systems Qualifiers: Laterality: right Qualified Code(s): R09.89 - Other specified symptoms and signs involving the circulatory and respiratory systems Plan: Noted right-sided carotid bruit on physical exam today. In the setting of her reporting recurrent dizziness will send for ultrasound to evaluate the extent of carotid stenosis. Orders: Orders US carotid duplex BI Today R09.89 - Other specified symptoms and signs involving the circulatory and respiratory systems Basic Metabolic Panel Today E87.1 - Hypo-osmolality and hyponatremia FL barium swallow Today R13.13 - Dysphagia, pharyngeal phase Complete Blood Count no Diff Today I10 - Essential (primary) hypertension Referrals Gastroenterology Referral R13.13 - Dysphagia, pharyngeal phase Coding Level of Care Code Est Pt Level 4 (74853) Diagnoses Pharyngeal dysphagia R13.13 Dysphagia type: pharyngeal phase Hyponatremia E87.1 Macrocytic anemia D53.9 Bruit of right carotid artery R09.89 Laterality: right
[2023-08-11 13:30] VITALS: BP 118/68; PULSE 100; O2SAT 99; BMI 16.5
== END 2023-08-11 14:15 | disposition home or self-care (01) ==
PROVIDERS: PCP Physician Assistant; Visit Provider Physician Assistant
DX: R13.13 Dysphagia, pharyngeal phase (principal); E87.1 Hypo-osmolality and hyponatremia; D53.9 Nutritional anemia, unspecified; R09.89 Other specified symptoms and signs involving the circulatory and respiratory systems
CPT/HCPCS: 99214

== ENCOUNTER 2023-08-21 10:18 | Outpatient (REF) | payer MEDICARE, SELFPAY ==
--- NOTE | ~2023-08-21 | US_ITS ---
EXAMINATION: US EXTRACRANIAL CAROTID DUPLEX, BILATERAL CLINICAL INFORMATION: Carotid bruit COMPARISON: None available. TECHNIQUE: Real-time ultrasound and Doppler techniques (integrating B-mode 2-D vascular images, Doppler spectral analysis and color-flow Doppler imaging) were utilized to interrogate the extracranial carotid arteries, the vertebral arteries and proximal subclavian arteries bilaterally. The degree of stenosis is determined by criteria similar to NASCET. FINDINGS: Right Side: 1. There is moderate atherosclerotic plaque seen in the bifurcation/proximal ICA region. 2. The common carotid artery PSV proximally is 67.6 cm/s and distally 59.3 cm/s. 3. The proximal internal carotid artery velocities are 252 cm/s systolic and 72.7 cm/s diastolic. 4. The proximal external carotid artery PSV is 207 cm/s. 5. The vertebral artery shows antegrade flow. 6. The subclavian artery waveforms are normal. Left Side: 1. There is mild atherosclerotic plaque seen in the bifurcation/proximal ICA region. 2. The common carotid artery PSV proximally is 93.9 cm/s and distally 74.0 cm/s. 3. The proximal internal carotid artery velocities are 68.5 cm/s systolic and 25.3 cm/s diastolic. 4. The proximal external carotid artery PSV is 68.5 cm/s. 5. The vertebral artery shows antegrade flow. 6. The subclavian artery waveforms are 157. US/US carotid duplex BI IMPRESSION: 1. RIGHT: Moderate, hemodynamically significant stenosis of the proximal right internal carotid artery corresponding to a 50-79% stenosis by velocity criteria. 2. LEFT: Minimal, non-hemodynamically significant stenosis of the proximal left internal carotid artery corresponding to a 0-49% stenosis by velocity criteria.
[2023-08-21 11:50] LABS: Hematocrit 35.1 % (37.0-47.0); Hemoglobin 12.1 g/dl (12.0-16.0); Mean Corpuscular HGB Conc 34.5 g/dl (31.0-35.0); Mean Corpuscular Hemoglobin 34.8 pg (27.0-33.0); Mean Corpuscular Volume 100.9 fL (80.0-98.0); Mean Platelet Volume 8.4 fL (9.4-12.3); Platelet Count 329 X10*3/uL (160-400); Red Blood Count 3.48 X10*6/uL (4.20-5.50); Red Cell Distribution Width 14.8 % (11.0-16.0); White Blood Count 5.9 X10*3/uL (4.8-10.8)
[2023-08-21 12:35] LABS: Anion Gap 15 (12-20); Blood Urea Nitrogen 9 mg/dL (9-16); Calcium 8.9 mg/dL (8.4-10.2); Carbon Dioxide 25 mmol/L (22-29); Chloride 102 mmol/L (96-108); Estimated Glomerular Filt Rate > 60; Glucose Random 97 mg/dL (60-115); Magnesium 1.6 mg/dL (1.6-2.6); Potassium 3.6 mmol/L (3.3-5.1); Sodium 138 mmol/L (135-145)
== END 2023-08-21 10:19 | disposition home or self-care (01) ==
LOC: HO.US 10:18
PROVIDERS: PCP Physician Assistant; Visit Provider Physician Assistant
DX: R09.89 Other specified symptoms and signs involving the circulatory and respiratory systems (principal); E87.1 Hypo-osmolality and hyponatremia; E83.42 Hypomagnesemia; E87.5 Hyperkalemia; I10 Essential (primary) hypertension
CPT/HCPCS: 36415; 80048; 83735; 85027; 93880

== ENCOUNTER 2023-09-11 13:48 | Outpatient (AMB) | payer MEDICARE, SELFPAY ==
[2023-09-11 14:13] VITALS: BP 120/78; PULSE 104; O2SAT 95; BMI 16.4
--- NOTE | 2023-09-11 14:13 | A.OFFPC_ITS ---
Vital Signs 09/11/23 14:13 Height 5 ft 4 in Weight 95 lb 8 oz BMI 16.4 BP 120/78 Blood Pressure Location Lt brachial Position Sitting Pulse 104 H Pulse Source Pulse Oximeter Pulse Oximetry (%) 95 Oxygen Delivery Method Room Air Intake Visit Reasons: f/u HTN/ Malnutrition Peanut Vendor Required: No Accompanied by: Self / Same As Patient Allergies cat dander Allergy (Unknown, Verified 09/11/23 14:37) Unknown morphine Allergy (Unknown, Verified 09/11/23 14:37) unknown seasonal allergies Allergy (Unknown, Uncoded 09/11/23 14:16) Unknown Medication List - Last Reconciled 09/11/23 by Michel Dodd PA-C acetaminophen 650 mg (2 x 325 mg) PO Q6H PRN 30 days albuterol sulfate 90 mcg/actuation 1 puff inhalation QID PRN aspirin 81 mg PO DAILY atorvastatin 40 mg PO BEDTIME back brace As directed blood pressure test kit-small As directed cyclobenzaprine 5 mg PO BID PRN 15 days fluticasone propionate 50 mcg/actuation (Flonase Allergy Relief) 1 spray intranasal BID PRN lisinopril 20 mg PO DAILY 90 days magnesium oxide 400 mg PO DAILY metoprolol succinate ER 25 mg PO DAILY montelukast 10 mg PO DAILY 90 days multivitamin 1 tab PO DAILY omeprazole 40 mg PO DAILY Tobacco use date assessed: 06/30/23 Fall risk assessment: No Falls in past year Last assessed Fall Risk: 09/11/23 HPI f/u HTN/ Malnutrition HPI Details Patient is a 68-year-old female here today for follow-up visit. Patient's past medical history significant for hypertension, COPD, tobacco use disorder, recent lumbar vertebral compression fracture, chronic allergic rhi nitis, low BMI. Last visit we discussed her dizziness and did note a carotid bruit. Will send for ultrasound that did show a moderate hemodynamically significant stenosis in the right carotid artery. She has upcoming appointment with vascular surgeon. .. Hypertension: Patient's blood pressure acceptable today in office. She is concerned about amlodipine as she feels it is causing her blood pressure to be too low. Has discontinued amlodipine. Continues on lisinopril and metoprolol .. IBS: Patient continues to have chronic abdominal pain and loose stools. She was diagnosed with IBS several years ago. .. Lumbar spine disease: Patient is followed by [facility] pain management and is considering lumbar vertebral surgery. She understand she needs to quit smoking to be able to heal well after surgery. Has had vertebral fractures in the past. [facility] Medical History (Updated 09/15/23 @ 07:19 by Michel Dodd PA-C) Left displaced femoral neck fracture Abnormal ECG Hyponatremia Hyperkalemia Acute kidney injury Acute respiratory failure with hypoxia Femoral neck fracture GERD (gastroesophageal reflux disease) JANAY (generalized anxiety disorder) IBS (irritable bowel syndrome) MDD (major depressive disorder) Pulmonary nodule Current smoker HTN (hypertension) Surgical History History of cervical discectomy Family History Father Lung cancer Brain cancer Mother CVD (cardiovascular disease) Breast cancer Son In good health Brother In good health Social History Household Members: None Household Members Other:: self Housing: House Do you presently have visiting nurse or other home services: No Alcohol intake: current Alcohol intake frequency: a few times a month Patient Tobacco Use Status: Current everyday Tobacco user Tobacco use type: Cigarette Cigarette Packs Per Day: 1 Cigarettes Per Day: 20.0 e-Cigarette/Vaping Use: Never Used Advance Directives Date on File: 10/21/22 service: No Current occupational status: retired Cognitive needs: No Hearing needs: No Vision needs: No Questionnaire Thrive Questionnaire Date Thrive assessed: 08/04/23 JANAY-7 AMB Questionnaire JANAY-7 Date JANAY - 7 assessed: 06/30/23 Source: Developed by Drs. Sal Porras, Alma Marks, Amado Kaur and colleagues, with an educational katya from [employer]. Review of Systems Const Denies headache(s) Eyes Denies loss of vision ENT Denies vertigo, Denies dizziness, Denies headache(s) and Denies sore throat Card Denies chest pain, Denies leg edema and Denies lightheadedness Resp Denies cough, Denies hemoptysis and Denies wheezing GI Denies abdominal pain, Denies melena, Denies constipation, Denies diarrhea and Denies vomiting Denies urinary frequency, Denies dysuria and Denies urinary urgency Musc Denies arthralgias, Denies joint swelling, Denies numbness and Denies tingling Neuro Denies Abnormal speech present, Denies behavioral changes, Denies vertigo, Denies dizziness, Denies headache(s), Denies loss of vision, Denies memory loss, Denies numbness and Denies tingling Psych Denies anxiety, Denies behavioral changes, Denies depression, Denies memory loss and Denies panic attacks Jefe/Lymph Denies easy bleeding and Denies easy bruising Aller/Immun Denies wheezing Physical exam (Primary Care) Vital Signs: Last Vital Signs Pulse 104 H 09/11/23 14:13 BP 120/78 09/11/23 14:13 Pulse Ox 95 09/11/23 14:13 Oxygen Delivery Method Room Air 09/11/23 14:13 BMI result Body Mass Index 16.4 Tobacco/Smoking Status: Tobacco use Status Tobacco use date assessed 06/30/23 09/11/23 14:15 Patient Tobacco Use Status Current everyday Tobacco 09/11/23 14:15 Tobacco use type Cigarette 09/11/23 14:15 e-Cigarette/Vaping Use Never Used 09/11/23 14:15 Tobacco cessation counseling provided: No Tobacco use cessation counseling not done medical reason: other Relapse Prevention: discussed the importance of a supportive environment, discussed negative mood or depression after quitting, weight gain after smoking is common and discussed dietary, exercise and/or lifestyle changes Number of minutes spent counselin CPT code: 87686 - 4-10 Minutes Thrive Assessment: Date of Thrive Assessment Date Thrive assessed 08/04/23 09/11/23 14:15 Const General: healthy appearing, no acute distress, alert and awake Nutritional Appearance: well nourished Orientation/consciousness: oriented to person, oriented to place and oriented to time HENMT Ears: TM's normal bilaterally General nose exam: Normal nasal mucous membranes and turbinates present Eyes Conjunctivae: conjunctivae normal Sclerae: sclerae normal Pupils: Equal, round and reactive pupils present Neck Neck: Yes no lymphadenopathy and Yes no JVD Thyroid: Thyroid normal Carotids: no bruits Resp Effort & Inspection: normal respiratory effort and not tachypneic Auscultation: no crackles, no rales, no rhonchi and no wheezes Cardio Rate: regular rate Rhythm: regular rhythm Heart sounds: no murmurs and normal S1 and S2 GI Palpation (GI): Soft to palpation, nontender, no hepatomegaly and no splenomegaly Auscultation: normal bowel sounds Skin General skin exam: no rashes or lesions noted and dry skin Neuro General: oriented to person, oriented to place and oriented to time Cranial nerves: Yes Equal, round and reactive pupils present Speech: No Abnormal speech present Gait exam (Neuro): Normal gait present Motor exam (neuro): no tremor noted Extrem Right upper extremity: full ROM Left upper extremity: full ROM Right lower extremity: full ROM; no edema Left lower extremity: full ROM; no edema Psych Mental Status: mental status grossly normal Speech and movement: Normal speech and movement present Affect: normal affect Attitude: cooperative Thought process: Normal thought process present Assessment and Plan Assessment & Plan (1) Carotid stenosis, right: Code(s): I65.21 - Occlusion and stenosis of right carotid artery Plan: As per HPI patient was noted to have right-sided moderate carotid stenosis. She still does have intermittent episodes of dizziness though unclear if this is due to her malnutrition versus moderate carotid stenosis. Will be following up with [facility] vascular surgeon. (2) Spinal stenosis of lumbar region with neurogenic claudication: Code(s): M48.062 - Spinal stenosis, lumbar region with neurogenic claudication Plan: Patient is followed by [facility] pain management. She is considering lumbar surgery. She is unsure if this will help her with her lower extremity weakness and balance. Unfortunately continues to smoke and does understand she really needs to quit smoking to recover well. (3) Chronic diarrhea: Code(s): K52.9 - Noninfective gastroenteritis and colitis, unspecified Plan: Reports she has long history of IBS. Has been using [id number] anti diarrheal and fiber without any significant relief. She does have a barium swallow evaluation coming up in September 2023 (4) Chronic sinusitis: Code(s): J32.9 - Chronic sinusitis, unspecified Qualifiers: Sinusitis location: frontal Qualified Code(s): J32.1 - Chronic frontal sinusitis Plan: Patient continues to have chronic sinusitis to which she takes allergy medication and nasal sprays with only minimal relief. Will send for allergy testing. She reports her sinusitis and postnasal drip does contribute to her lack appetite.. Will consider ENT evaluation for possible allergy injections. (5) Tobacco dependence: Code(s): F17.200 - Nicotine dependence, unspecified, uncomplicated Plan: Patient does understand she needs to quit smoking. Have offered her nicotine replacement and or medication though she reports they are not helpful. She will try to cut down and quit on her own. Orders: Orders Resp Allergy Profile Region I 09/11/23 J45.909 - Unspecified asthma, uncomplicated, R05.9 - Cough, unspecified Magnesium 09/11/23 E83.42 - Hypomagnesemia Comprehensive [place]. Panel Fast 09/11/23 I10 - Essential (primary) hypertension Coding Level of Care Code Est Pt Level 4 (92333) Diagnoses Carotid stenosis, right I65.21 Spinal stenosis of lumbar region with neurogenic claudication M48.062 Chronic diarrhea K52.9 Chronic frontal sinusitis J32.1 Sinusitis location: frontal Tobacco dependence F17.200 Additional Codes Vital Signs *Quality* - CPT code: 45011 - 4-10 Minutes ([id number])
== END 2023-09-11 15:31 | disposition home or self-care (01) ==
PROVIDERS: PCP Physician Assistant; Visit Provider Physician Assistant
DX: I65.21 Occlusion and stenosis of right carotid artery (principal); M48.062 Spinal stenosis, lumbar region with neurogenic claudication; K52.9 Noninfective gastroenteritis and colitis, unspecified; J32.1 Chronic frontal sinusitis; F17.200 Nicotine dependence, unspecified, uncomplicated
CPT/HCPCS: 99214; 99406

== ENCOUNTER 2023-10-07 09:11 | Outpatient (AMB) | payer MEDICARE, SELFPAY ==
--- NOTE | 2023-10-07 09:28 | MHC.OFFVIS ---
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 Patient gets constant foot and leg swelling that comes and goes. Today her swelling is minimal. Accompanied by: Health Care Proxy Allergies cat dander Allergy (Unknown, Verified 09/11/23 14:37) Unknown morphine Allergy (Unknown, Verified 09/11/23 14:37) unknown seasonal allergies Allergy (Unknown, Uncoded 09/11/23 14:16) Unknown HPI HPI [employer]/PCP ref for carotid stenosis s/p US 08/21/23: Details: Very pleasant 68-year-old female presents for evaluation regarding carotid disease. She has a prolonged history of headaches weakness and dizziness. She has had sinus headaches in addition to allergies. She had been worked up in actually about 6 months ago had some weakness of the right arm. She has a past medical history hypertension COPD spinal issues and low BMI. In addition she smokes over a pack a day. She now presents to us for vascular evaluation [facility] Medical History Left displaced femoral neck fracture Abnormal ECG Hyponatremia Hyperkalemia Acute kidney injury Acute respiratory failure with hypoxia Femoral neck fracture GERD (gastroesophageal reflux disease) JANAY (generalized anxiety disorder) IBS (irritable bowel syndrome) MDD (major depressive disorder) Pulmonary nodule Current smoker HTN (hypertension) Surgical History History of cervical discectomy Family History Father Lung cancer Brain cancer Mother CVD (cardiovascular disease) Breast cancer Son In good health Brother In good health Social History Household Members: None Household Members Other:: self Housing: House Do you presently have visiting nurse or other home services: No Alcohol intake: current Alcohol intake frequency: a few times a month Patient Tobacco Use Status: Current everyday Tobacco user Tobacco use type: Cigarette Cigarette Packs Per Day: 1 Cigarettes Per Day: 20.0 e-Cigarette/Vaping Use: Never Used Advance Directives Date on File: 10/21/22 service: No Current occupational status: retired Cognitive needs: No Hearing needs: No Vision needs: No Review of Systems Const All systems reviewed & are unremarkable except as noted in HPI and below Reports no additional complaints ENT Reports Normal hearing present Card Denies chest pain, Denies chest pain at rest, Denies chest pain with activity and Denies pedal edema Resp Denies cough GI Denies abdominal pain Musc Denies abnormal gait, Denies muscle cramps and Denies radiating pain into limb Skin/Breast Denies skin ulcer and Denies wounds Neuro Reports Normal hearing present and Denies abnormal gait Psych Reports no additional complaints Physical Exam Const General: cooperative, healthy appearing and comfortable Orientation/consciousness: oriented to person, oriented to place and oriented to time HEENT Head: Yes normal to inspection Neck Neck: Yes normal visual inspection Carotids: no bruits Chest Chest palpation & inspection: normal inspection of the chest Resp Effort & Inspection: normal respiratory effort and able to speak in complete sentences Auscultation: clear to auscultation bilaterally, no crackles, no rales, no rhonchi and no wheezes Cardio Rate: regular rate Rhythm: regular rhythm Heart sounds: S1 normal heart sound present and S2 normal heart sound present Bruits: no carotid bruits Peripheral pulses: Peripheral pulses 2+ throughout GI Inspection: Yes normal to inspection Skin Wounds: no wounds Hair: normal Neuro General: oriented to person, oriented to place and oriented to time Cranial nerves: Yes CN's II-XII intact bilaterally and Yes Normal hearing present Cognition (Neuro): normal cognition Motor exam (neuro): 5/5 motor strength present throughout Extrem Other: venous exam: No significant superficial varicosities or spider telangiectasias, minimal edema General: No clubbing, No cyanosis and No edema Psych Appearance: grossly normal Mental Status: mental status grossly normal Speech and movement: Normal speech and movement present Results Reviewed Results Reviewed: Carotid testing dated 08/21/2023 demonstrates carotid stenosis on the right 50-79% with a peak systolic of 252 and on the left of 0-49%. Assessment & Plan Assessment & Plan (1) Bilateral carotid artery stenosis: Code(s): I65.23 - Occlusion and stenosis of bilateral carotid arteries Category: Medical Plan: In short patient has generalized weakness and dizziness. She does have somewhat of a higher grade right carotid stenosis. I have taken the liberty of ordering a CT angiogram to better elucidate the true degree of her carotid stenosis. She will follow up with us after testing. (2) Leg pain: Code(s): M79.606 - Pain in leg, unspecified Category: Medical Qualifiers: Laterality: bilateral Qualified Code(s): M79.604 - Pain in right leg; M79.605 - Pain in left leg Plan: She does have generalized bilateral leg pain. I do believe some of this is neurogenic. This may warrant an arterial and venous workup. We will follow-up on this on follow-up after her carotid testing. Thank you for allowing us to assist in her care Orders: Orders Blood Urea Nitrogen Today I65.23 - Occlusion and stenosis of bilateral carotid arteries CT angio neck 1 Week I65.23 - Occlusion and stenosis of bilateral carotid arteries Creatinine Today I65.23 - Occlusion and stenosis of bilateral carotid arteries
== END 2023-10-07 10:12 | disposition home or self-care (01) ==
PROVIDERS: PCP Physician Assistant; Visit Provider Surgery Vascular Surgery
DX: I65.23 Occlusion and stenosis of bilateral carotid arteries (principal); M79.604 Pain in right leg; M79.605 Pain in left leg
CPT/HCPCS: 99204

== ENCOUNTER → 2023-10-07 09:11 | Outpatient (BNVA) | payer MEDICARE, SELFPAY | PROVIDERS: PCP Physician Assistant; Visit Provider Surgery Vascular Surgery | DX: I65.23 Occlusion and stenosis of bilateral carotid arteries (principal); M79.605 Pain in left leg; M79.89 Other specified soft tissue disorders | CPT/HCPCS: 99202 ==

== ENCOUNTER 2023-10-09 09:12 | Outpatient (REF) | payer MEDICARE, SELFPAY ==
--- NOTE | ~2023-10-09 | FL_ITS ---
EXAMINATION: XR FLUOROSCOPY UPPER GI WITH AIR CLINICAL INFORMATION: Dysphagia COMPARISON: None TECHNIQUE: Fluoroscopic air contrast upper GI examination was performed utilizing standard techniques with thin and thick barium and effervescent granules. Numerous spot images were obtained. FINDINGS: Patient is status cervical fusion of C5-C6 with lateral mass screws, with associated fusion of the disc space. There is a 3 mm retrolisthesis of C3 on C4. There is severe disc space loss at this level. Patient has a moderate levoconvex lumbar scoliosis. Lateral cine images of the oropharynx and hypopharynx demonstrate normal swallow mechanism with normal epiglottic inversion and soft palate elevation. There is trace laryngeal penetration with thick barium. No tracheal penetration, glottic or subglottic aspiration identified. No nasopharyngeal reflux present. Hypopharyngeal structures appear normal without evidence of mass or diverticulum There is moderate to severe persistent cricopharyngeal achalasia present. Dual and single contrast images of the esophagus demonstrate normal caliber, and contour. There is a focal area of contrast pooling in the anterior portion of the lower esophagus that likely represents a superficial mucosal ulcer (RF1-20). No strictures or masses are present. Esophageal peristalsis is mildly disorganized. No evidence of hiatus hernia identified. No significant gastroesophageal reflux was seen during the course of the examination and on reflux views. Dual contrast and single contrast images of the stomach demonstrated a normal contour. The gastric mucosal folds are severely thickened. No masses or ulcerations are seen. Contrast freely passed into the gastric antrum and duodenal bulb without delay. Single and air-contrast images of the duodenal bulb demonstrate no abnormality. The duodenal sweep has a normal appearance, course, and mucosal fold appearance. The imaged proximal jejunum has a normal fold pattern and caliber. FLUOROSCOPY TIME: 4 minutes 17 seconds Number of Spot Images: 7 Number of Cine: 12 DOSE AREA PRODUCT: 1142 uGy-m2 (microgray-meter squared) FL/FL barium swallow IMPRESSION: 1. Trace laryngeal penetration with thick barium. No subglottic aspiration. 2. Moderate to severe persistent cricopharyngeal achalasia. 3. Focal area of contrast pooling in the anterior portion of the lower esophagus that likely represents a superficial mucosal ulcer. 4. Mildly disorganized esophageal peristalsis 5. Severely thickened gastric mucosal folds likely representing gastritis. 6. Status post cervical fusion of C5-C6 This procedure was performed by Rasta Brewer PA-C, and supervised by Dr. Cortez
[2023-10-09 11:25] LABS: Alanine Aminotransferase 8 U/L (0-31); Albumin Level 3.8 g/dL (3.5-5.0); Alkaline Phosphatase 104 U/L (39-117); Anion Gap 14 (12-20); Aspartate Amino Transferase 18 U/L (5-31); Bilirubin Total 0.4 mg/dL (0.0-1.0); Blood Urea Nitrogen 15 mg/dL (9-16); Calcium 9.4 mg/dL (8.4-10.2); Carbon Dioxide 30 mmol/L (22-29); Chloride 99 mmol/L (96-108); Estimated Glomerular Filt Rate > 60; Glucose Fasting 121 mg/dL (60-99); Glucose Random 120 mg/dL (60-115); Magnesium 1.5 mg/dL (1.6-2.6); Potassium 4.6 mmol/L (3.3-5.1); Sodium 138 mmol/L (135-145); Total Protein 7.2 g/dL (6.5-8.0)
[2023-10-17 10:59] LABS: Class Alternaria alternata 0; Class Aspergillus fumigatus 0; Class Bermuda Grass 0; Class Birch 1; Class Cat Dander 0; Class Cladosporium herbarum 0; Class Cockroach 0; Class Common Ragweed 0; Class Cottonwood 0; Class Derm. pterony 0; Class Dermatophagoides farinae 0; Class Dog Dander 0; Class Elm 0; Class Maple Box Elder 0; Class Mountain Cedar 0; Class Mouse Urine Protein 0; Class Mugwort 0; Class Oak 0; Class Penicillium crysogenum 0; Class Rough Pigweed 0; Class Sheep Sorrel 0; Class Sycamore 0; Class Timothy Grass 0; Class Walnut Tree 0; Class White Ash 0; Class White Mulberry 0; D001 IgE D pteronyssinus <0.10 kU/L; D002 - IgE D farinae <0.10 kU/L; E001 - IgE Cat Dander <0.10 kU/L; E005 - IgE Dog Dander <0.10 kU/L; E072-IgE Mouse Urine <0.10 kU/L; G002 IgE Bermuda Grass <0.10 kU/L; G006 - IgE Timothy Grass <0.10 kU/L; I006-IgE Cockroach, German <0.10 kU/L; Immunoglobulin E 473 kU/L (<OR=114); M001 IgE Penicillium chrysogen <0.10 kU/L; M002 - IgE Cladosporium herbar <0.10 kU/L; M003 - IgE Aspergillus fumigat <0.10 kU/L; M006 - IgE Alternaria alternat <0.10 kU/L; T001 IgE Maple/Box Elder <0.10 kU/L; T006 - IgE Cedar, Mountain <0.10 kU/L; T007 - IgE Oak, White <0.10 kU/L; T008 IgE Elm, American <0.10 kU/L; T010 - IgE Walnut <0.10 kU/L; T011 - IgE Maple Leaf Sycamore <0.10 kU/L; T014 - IgE Cottonwood <0.10 kU/L; T015 - IgE Ash, White <0.10 kU/L; T070 - IgE White Mulberry <0.10 kU/L; W001 - IgE Ragweed, Short <0.10 kU/L; W006 - IgE Mugwort <0.10 kU/L; W014 IgE Pigweed, Common <0.10 kU/L; W018 IgE Sheep Sorrel <0.10 kU/L
== END 2023-10-09 09:13 | disposition home or self-care (01) ==
LOC: HO.XRAY 09:12
PROVIDERS: Absent Provider Surgery Vascular Surgery; PCP Physician Assistant; Visit Provider Physician Assistant
DX: R13.13 Dysphagia, pharyngeal phase (principal); J45.909 Unspecified asthma, uncomplicated; E83.42 Hypomagnesemia; I10 Essential (primary) hypertension; E87.5 Hyperkalemia; R05.3 Chronic cough
CPT/HCPCS: 36415; 74220; 80048; 80053; 82785; 83735; 86003

== ENCOUNTER → 2023-10-09 09:17 | Outpatient (BNV) | payer MEDICARE, SELFPAY | PROVIDERS: Absent Provider Surgery Vascular Surgery; PCP Physician Assistant; Visit Provider Physician Assistant Surgical | DX: R13.10 Dysphagia, unspecified (principal) | CPT/HCPCS: 74221 ==

== ENCOUNTER 2023-10-24 08:44 | Outpatient (REF) | payer MEDICARE, SELFPAY ==
--- NOTE | ~2023-10-24 | CT_ITS ---
EXAMINATION: CT ANGIOGRAM NECK CLINICAL INFORMATION: 68-year-old undergoing evaluation for occlusion and stenosis of bilateral carotid arteries. Previous carotid ultrasound demonstrated 50-79% stenosis on the right. COMPARISON: 10/21/2023 carotid ultrasound results. TECHNIQUE: Volumetric CT angiography of the neck was performed from the lung apices to the skull base utilizing the bolus intravenous administration of 70 mL of Omnipaque 350 contrast material. 2D multiplanar reconstructions and 3D MIP renderings were performed either on an independent workstation or at the CT console workstation. The degree of stenosis determined by NASCET criteria. This CT examination was performed using dose optimization techniques as appropriate, variously including the following: *Automated exposure control *Adjustment of mA and/or kV according to patient size (this includes techniques or standardized protocols for targeted exams where dose is matched to indication/reason for exam; i.e. extremities or head) *Use of iterative reconstruction technique DLP: 262 mGy-cm FINDINGS: CTA: The aortic arch demonstrates scattered foci of partially calcified atheromatous plaque without significant luminal diameter reduction. There is a three-vessel arch configuration with foci of calcified plaque along the brachiocephalic vessels without significant focal stenosis. The subclavian arteries are patent without significant focal stenosis. Some luminal irregularity is noted consistent with foci of noncalcified and calcified plaque. The vertebral arteries are relatively codominant. There is calcified plaque adjacent to the origin of the right vertebral artery with only mild luminal narrowing of the origin. There is a widely patent origin of the left vertebral artery. Allowing for artifacts, the vertebral arteries throughout the remainder of the neck demonstrate no significant focal stenosis or segmental occlusion. Right Carotid: The right common carotid artery is smoothly contoured, patent and normal in caliber. There is densely calcified plaque in the right carotid bulb, with eccentric stenosis of the lumen of the bulb, with at least 90% diameter reduction stenosis based on NASCET criteria. Distal to this, the right cervical ICA is patent and normal in caliber, when allowing for swallowing motion artifact. There is calcified plaque at the origin of the right EAC as well without significant focal stenosis. Left Carotid: Left common carotid artery is patent and normal in caliber. There are foci of calcified plaque scattered throughout the anterior wall of the right common carotid artery. There is mild calcified plaque at the right carotid bifurcation. The ECA is patent and normal in caliber. There is less than 50% diameter reduction luminal narrowing of the right carotid bulb. Visualization of the mid right cervical ICA is very limited due to swallowing motion artifact, but there is no significant stenosis or segmental occlusion suspected at this level when allowing for artifacts. CTA HEAD PARTIAL: The visualized intracranial ICAs are patent and normal in caliber with mild mural calcifications at both carotid siphons, left more than right. The A1 segments are patent with the right being dominant. There is visualization of the proximal A2 segments bilaterally. The M1 segments are patent and normal in caliber bilaterally. The intradural vertebral arteries are patent without significant focal stenosis. The basilar artery is patent and normal in caliber and the superior cerebellar and visualized posterior cerebral arteries are patent. CT NECK NONVASCULAR IMAGES: Visualized intracranial and orbital soft tissues demonstrate no acute process. Limited visualization of the neck soft tissue structures with swallowing motion and dental amalgam artifact. Small retention cysts in the maxillary sinuses bilaterally and some mucosal thickening along the floor of the left maxillary sinus are noted. A tooth extraction defect is seen in the alveolar process of the maxilla on the left posteriorly. Very limited assessment of the neck soft tissue structures due to artifacts, as detailed above. Thyroid gland appears normal. Visualized upper thorax demonstrates centrilobular pulmonary emphysematous changes bilaterally. There is a 4 mm noncalcified right upper lobe pulmonary nodule on image [id number]. There is a 4 mm noncalcified pulmonary nodule at the right lung apex as well. Probable fibrotic changes at both lung apices. Visualized mediastinum demonstrates a few nonenlarged lymph nodes. SKELETAL: Evidence of a previous cervical fusion at C5-C6 with hardware in place posteriorly. Severe discogenic degenerative changes at C3-C4 with mild retrolisthesis at this level, with Schmorl's nodes and degenerative endplate sclerosis with spondylosis and severe disc space height loss. Central disc herniation at C4-C5 with possible ventral cord impingement. Correlate with MRI if clinically warranted. CT/CT angio neck IMPRESSION: 1. Atheromatous calcified plaque at both carotid bulbs, right more than left, as described above, with at least 90% diameter reduction stenosis of the right carotid bulb and less than 50% diameter reduction stenosis of the left carotid bulb by NASCET criteria. Limited assessment of the mid left and right cervical ICAs due to swallowing motion artifact. 2. Mild atheromatous changes of the aortic arch and brachiocephalic vessels without significant focal stenosis. 3. No significant focal stenoses or occlusions are identified intracranially. 4. Pulmonary findings, as described above, with two 4 mm noncalcified right upper lobe pulmonary nodules and probable biapical fibrotic changes. (If this patient is not at elevated risk (no history of smoking or underlying malignancy), then no further follow up for this is suggested on the basis of the current Fleischner criteria. If the patient is at elevated risk, then a follow up CT the chest would be recommended in 12 months.) 5. Cervical degenerative changes and postoperative changes, as described above. Possible central disc herniation at C4-C5 with possible ventral cord impingement. Fleischner guidelines were followed. The [facility] staff will call to confirm receipt of this report with acknowledgement of the findings and any recommendations.
[2023-10-24] MEDS: iohexoL 350 MG/ML 100 ML INFUS..BTL IV (09:31)
== END 2023-10-24 08:45 | disposition home or self-care (01) ==
LOC: HO.CT 08:44
PROVIDERS: PCP Physician Assistant; Visit Provider Surgery Vascular Surgery
DX: I65.23 Occlusion and stenosis of bilateral carotid arteries (principal)
CPT/HCPCS: 70498; Q9967

== ENCOUNTER 2023-10-28 09:11 | Outpatient (REF) | payer MEDICARE, SELFPAY ==
[2023-10-28 11:58] LABS: Blood Urea Nitrogen 14 mg/dL (9-16); Estimated Glomerular Filt Rate > 60; Lipase 14 U/L (8-78)
[2023-10-28 12:00] LABS: TSH reflex Free T4 4.88 uIU/mL (0.32-4.0)
[2023-10-28 12:19] LABS: Vitamin B12 337 pg/mL (200-900)
[2023-10-28 13:17] LABS: Free T4 (Free Thyroxine) 0.69 ng/dL (0.71-1.85)
[2023-10-31 15:53] LABS: Vitamin D 25-OH, D2 <4 ng/mL; Vitamin D 25-OH, D3 14 ng/mL; Vitamin D 25-OH, Total 14 ng/mL (30-100)
== END 2023-10-28 09:12 | disposition home or self-care (01) ==
LOC: HO.LAB 09:11
PROVIDERS: PCP Physician Assistant; Visit Provider Nurse Practitioner Family
DX: I65.23 Occlusion and stenosis of bilateral carotid arteries (principal); R10.9 Unspecified abdominal pain; K59.00 Constipation, unspecified; R19.7 Diarrhea, unspecified; E55.9 Vitamin D deficiency, unspecified; K21.9 Gastro-esophageal reflux disease without esophagitis
CPT/HCPCS: 36415; 82306; 82565; 82607; 82746; 83690; 84439; 84443; 84520; 99202

== ENCOUNTER 2023-10-28 09:11 | Outpatient (AMB) | payer MEDICARE, SELFPAY ==
--- NOTE | 2023-10-28 09:15 | A.OFFVIS_ITS ---
Vital Signs 10/28/23 09:16 Height 5 ft 4 in Weight 92 lb 9.506 oz BMI 15.9 BP 137/83 Blood Pressure Location Lt brachial Position Sitting Pulse 114 H Intake Visit Reasons: Dysphagia Intake Note: Leslie presents in the office as a new patient for Dysphagia. CC: She is having issues with swallowing - if she eats certain foods she will choke. She has had neck surgeries for her back and she was told that her throat would feel a lot tighter. 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 Patient reports that since she was a child she had issues with her stomach. Patient reports constant diarrhea, no matter what she eats. Patient reports dyspepsia and dysphagia without odynophagia. Patient is an everyday smoker of 1 pack of cigarettes a day. Patient denies any nausea or vomiting. Patient reports that she eats a lot of bread. Currently has lots of allergies and has postnasal drip. Patient was diagnosed with bilateral carotid artery stenosis via Doppler and is waiting for CT scan results. Patient has seen vascular surgeon. Colonoscopy was done in 2009 that showed diverticulosis. No polyps found. Patient also had upper endoscopy performed at that time and was placed on PPI. Patient just recently was placed on omeprazole and states that for the most part her symptoms are suppressed, however occasionally patient feels like she is having trouble swallowing as well as having acid reflux depending on what she eats. Patient denies any melena, hematochezia. Patient had barium swallow done 10/09/2023 and was found to have cricopharyngeal achalas ia with barium pooling in the lower part of the esophagus consistent with possible esophagitis/possible erosive, disorganized peristalsis seen as well as thickened gastric mucosal folds suggestive of gastritis. [facility] Medical History Left displaced femoral neck fracture Abnormal ECG Hyponatremia Hyperkalemia Acute kidney injury Acute respiratory failure with hypoxia Femoral neck fracture GERD (gastroesophageal reflux disease) JANAY (generalized anxiety disorder) IBS (irritable bowel syndrome) MDD (major depressive disorder) Pulmonary nodule Current smoker HTN (hypertension) Surgical History Hx of colonoscopy History of esophagogastroduodenoscopy (EGD) History of cervical discectomy Family History Father Lung cancer Brain cancer Mother CVD (cardiovascular disease) Breast cancer Son In good health Brother In good health Social History Household Members: None Household Members Other:: self Housing: House Do you presently have visiting nurse or other home services: No Alcohol intake: current Alcohol intake frequency: a few times a month Patient Tobacco Use Status: Current everyday Tobacco user Tobacco use type: Cigarette Cigarette Packs Per Day: 1 Cigarettes Per Day: 20.0 e-Cigarette/Vaping Use: Never Used Advance Directives Date on File: 10/21/22 service: No Current occupational status: retired Cognitive needs: No Hearing needs: No Vision needs: No Review of Systems Const Denies weight gain and Denies weight loss ENT Reports no additional complaints, Reports dysphagia and Denies odynophagia Card Reports no additional complaints Resp Reports no additional complaints GI Reports abdominal pain (Epigastric), Denies belching, Denies melena, Reports bloating, Denies change in bowel habits, Reports dysphagia, Denies excessive flatus, Reports dyspepsia, Reports heartburn, Denies diarrhea, Reports loose stools, Denies nausea, Denies odynophagia and Denies vomiting Reports no additional complaints Musc Reports no additional complaints Neuro Reports no additional complaints Psych Reports no additional complaints Endo Reports no additional complaints Physical Exam Vital Signs: Last Vital Signs Pulse 114 H 10/28/23 09:16 BP 137/83 10/28/23 09:16 BMI result Body Mass Index 15.9 Const General: no acute distress Nutritional Appearance: cachectic and underweight Orientation/consciousness: patient oriented x3 Resp Effort & Inspection: normal respiratory effort, able to speak in complete sentences, no tracheal deviation and symmetric chest movement Auscultation: clear to auscultation bilaterally Cardio Rate: regular rate GI Inspection: No distended Palpation (GI): Soft to palpation, not firm, nontender and No hepatosplenomegaly present Auscultation: normal bowel sounds General: Yes no CVA tenderness Back/Spine/Pelvis Back: no CVA tenderness Skin General skin exam: elasticity normal, turgor normal and dry skin Neuro General: patient oriented x3 Psych Appearance: grossly normal Mental Status: mental status grossly normal Results Reviewed Results Reviewed: BARIUM SWALLOW 10/09/2023 IMPRESSION: 1. Trace laryngeal penetration with thick barium. No subglottic aspiration. 2. Moderate to severe persistent cricopharyngeal achalasia. 3. Focal area of contrast pooling in the anterior portion of the lower esophagus that likely represents a superficial mucosal ulcer. 4. Mildly disorganized esophageal peristalsis 5. Severely thickened gastric mucosal folds likely representing gastritis. 6. Status post cervical fusion of C5-C6 Assessment & Plan Assessment & Plan (1) Cricopharyngeal achalasia: Code(s): K22.0 - Achalasia of cardia Category: Medical (2) Dysphagia: Code(s): R13.10 - Dysphagia, unspecified Category: Medical Qualifiers: Dysphagia type: pharyngeal phase Qualified Code(s): R13.13 - Dysphagia, pharyngeal phase (3) Cachexia: Code(s): R64 - Cachexia Category: Medical (4) Colon cancer screening: Code(s): Z12.11 - Encounter for screening for malignant neoplasm of colon Category: Medical (5) Postprandial diarrhea: Code(s): K52.9 - Noninfective gastroenteritis and colitis, unspecified (6) GERD (gastroesophageal reflux disease): Code(s): K21.9 - Gastro-esophageal reflux disease without esophagitis Qualifiers: Esophagitis presence: esophagitis presence not specified Qualified Code(s): K21.9 - Gastro-esophageal reflux disease without esophagitis Plan Patient was encouraged to continue avoiding dietary triggers and late night snacking. Will stop omeprazole and patient will start taking pantoprazole in the morning and sucralfate at bedtime. Possible gastritis seen on barium swallow. Patient will need to go for upper endoscopy, however we will rule out celiac, pancreatic insufficiency, H pylori. Will check lipase, vitamin-D, B12, folate. Will check thyroid studies, patient reports postprandial loose stools occasionally. Will start her on fiber supplement. I will see patient in 4 months. Depending on results we will be sending patient for upper endoscopy and colonoscopy. Patient will call our office if she will start feeling worse. Patient should be referred to a dietitian. High calorie diet encouraged to gain weight. Patient is agreeable to current plan of care and verbalizes understanding of instructions she was given the opportunity to questions and all questions answered. Thank you for allowing me to participate in her care Orders: Orders TSH reflex Free T4 Today K59.00 - Constipation, unspecified Vitamin D 25-OH (D2 and D3) Today E55.9 - Vitamin D deficiency, unspecified H pylori Ag Stool Today K21.9 - Gastro-esophageal reflux disease without esophagitis Pancreatic Elastase-1 Today R10.9 - Unspecified abdominal pain Lipase Today R10.9 - Unspecified abdominal pain Vitamin B12 and Folate Today R19.7 - Diarrhea, unspecified Medications: New methylcellulose (laxative) (Citrucel) 500 mg PO DAILY 30 tabs 2RF K59.00 - Constipation, unspecified sucralfate 1 g PO BEDTIME 30 tabs 4RF R19.7 - Diarrhea, unspecified pantoprazole take one tablet half an hour before breakfast 40 mg PO DAILY 30 tabs 2RF K21.9 - Gastro-esophageal reflux disease without esophagitis Discontinued omeprazole Discontinued Reason: Doctor's Order 40 mg PO DAILY 90 caps 1RF Coding Level of Care Code New Pt Level 4 (92888) Diagnoses Cricopharyngeal achalasia K22.0 Pharyngeal dysphagia R13.13 Dysphagia type: pharyngeal phase Cachexia R64 Colon cancer screening Z12.11 Postprandial diarrhea K52.9 Gastroesophageal reflux disease, unspecified whether esophagitis present K21.9 Esophagitis presence: esophagitis presence not specified Time Spent (min) 45 Comment 30 minutes spent with patient and additional 15 minutes spent reviewing her records
[2023-10-28 09:16] VITALS: BP 137/83; PULSE 114; BMI 15.9
== END 2023-10-28 10:17 | disposition home or self-care (01) ==
PROVIDERS: PCP Physician Assistant; Visit Provider Nurse Practitioner Family
DX: K22.0 Achalasia of cardia (principal); R13.13 Dysphagia, pharyngeal phase; R64 Cachexia; Z12.11 Encounter for screening for malignant neoplasm of colon; K52.9 Noninfective gastroenteritis and colitis, unspecified; K21.9 Gastro-esophageal reflux disease without esophagitis
CPT/HCPCS: 99204

== ENCOUNTER 2023-11-20 13:07 | Outpatient (AMB) | payer MEDICARE, SELFPAY ==
--- NOTE | 2023-11-20 13:12 | A.OFFPC_ITS ---
Intake Visit Reasons: f/u vascular and GI issues. Intake Note: Telehealth video call with the patient, who is unable to come to the office due to lower extremity pain. The patient is requesting the results of their barium swallow test. Grain Cleaner Required: No Information Interpreted: non-clinical & clinical Mixer Crane Operator: Not Required per policy Accompanied by: Self / Same As Patient Allergies cat dander Allergy (Unknown, Verified 11/20/23 13:50) Unknown morphine Allergy (Unknown, Verified 11/20/23 13:50) unknown seasonal allergies Allergy (Unknown, Uncoded 11/20/23 13:50) Unknown Medication List - Last Reconciled 11/20/23 by Michel Dodd PA-C acetaminophen 650 mg (2 x 325 mg) PO Q6H PRN 30 days albuterol sulfate 90 mcg/actuation 1 puff inhalation QID PRN aspirin 81 mg PO DAILY atorvastatin 40 mg PO BEDTIME back brace As directed blood pressure test kit-small As directed cyclobenzaprine 5 mg PO BID PRN 15 days fluticasone propionate 50 mcg/actuation (Flonase Allergy Relief) 1 spray intranasal BID PRN lisinopril 20 mg PO DAILY 90 days magnesium oxide 400 mg PO DAILY methylcellulose (laxative) (Citrucel) 500 mg PO DAILY metoprolol succinate ER 25 mg PO DAILY montelukast 10 mg PO DAILY 90 days multivitamin 1 tab PO DAILY pantoprazole 40 mg PO DAILY sucralfate 1 g PO BEDTIME Tobacco use date assessed: 06/30/23 Fall risk assessment: No Falls in past year Last assessed Fall Risk: 11/20/23 Dental Screening Dental Screen Date: 06/30/23 HPI f/u vascular and GI issues. HPI Details Patient is a 68-year-old female being evaluated by telephone. Patient's past medical history significant for hypertension, COPD, tobacco use disorder, recent lumbar vertebral compression fracture, chronic allergic rhinitis. TODAY PATIENT WANTED TO REVIEW ALL RECENT MEDICAL FINDINGS PARTICULARLY VASCULAR AND GI SHE HAS BEEN SOMEWHAT CONFUSED... .. Cricopharyngeal Achalasia- following By [facility]. Undergoing testing at this time. Really considering EGD. Her omeprazole has been transitioned to pantoprazole and was started on Carafate. Still has not done H pylori testing. Carotid Stenosis : Has symptoms of dizziness and fatigue quite often. Ultrasound showed right moderately stenosed carotid artery. CT angiogram of neck ---> Atheromatous calcified plaque at both carotid bulbs, right more than left, as described above, with at least 90% diameter reduction stenosis of the right carotid bulb and less than 50% diameter reduction stenosis of the left carotid bulb by NASCET criteria Has upcoming appt with Vascular surg for further evaluation possible endarterectomy. Unfortunately continues to smoke and does understand she needs to quit. Has found it very difficult to do so. Have offered her nicotine replacement and medication though she declines. Elevated TSH: Have noted recent slight elevation in TSH. We did discuss possible need for levothyroxine though declines at this time. Will recheck TSH in 6 weeks. REPLACED BY [facility] Medical History Left displaced femoral neck fracture Abnormal ECG Hyponatremia Hyperkalemia Acute kidney injury Acute respiratory failure with hypoxia Femoral neck fracture GERD (gastroesophageal reflux disease) JANAY (generalized anxiety disorder) IBS (irritable bowel syndrome) MDD (major depressive disorder) Pulmonary nodule Current smoker HTN (hypertension) Surgical History Hx of colonoscopy History of esophagogastroduodenoscopy (EGD) History of cervical discectomy Family History Father Lung cancer Brain cancer Mother CVD (cardiovascular disease) Breast cancer Son In good health Brother In good health Social History Household Members: None Household Members Other:: self Housing: House Do you presently have visiting nurse or other home services: No Alcohol intake: current Alcohol intake frequency: a few times a month Patient Tobacco Use Status: Current everyday Tobacco user Tobacco use type: Cigarette Cigarette Packs Per Day: 1 Cigarettes Per Day: 20.0 e-Cigarette/Vaping Use: Never Used Advance Directives Date on File: 10/21/22 service: No Current occupational status: retired Cognitive needs: No Hearing needs: No Vision needs: No Questionnaire Thrive Questionnaire Date Thrive assessed: 08/04/23 JANAY-7 AMB Questionnaire JANAY-7 Date JANAY - 7 assessed: 06/30/23 Source: Developed by Drs. Sal L. Alma Porras, Amado Kaur and colleagues, with an educational katya from [employer] (formerly [employer]). Review of Systems Const Denies headache(s) Eyes Denies loss of vision ENT Denies vertigo, Reports dizziness, Denies headache(s) and Denies sore throat Card Denies chest pain, Denies leg edema and Denies lightheadedness Resp Denies cough, Denies hemoptysis and Denies wheezing GI Details: + dysphagia Denies abdominal pain, Denies melena, Denies constipation, Denies diarrhea and Reports vomiting Denies urinary frequency, Denies dysuria and Denies urinary urgency Musc Denies arthralgias, Denies joint swelling, Denies numbness and Denies tingling Neuro Denies behavioral changes, Denies vertigo, Reports dizziness, Denies headache(s), Denies loss of vision, Denies memory loss, Denies numbness and Denies tingling Psych Denies anxiety, Denies behavioral changes, Denies depression, Denies memory loss and Denies panic attacks Jefe/Lymph Denies easy bleeding and Denies easy bruising Aller/Immun Denies wheezing Physical exam (Primary Care) Tobacco/Smoking Status: Tobacco use Status Tobacco use date assessed 06/30/23 11/20/23 13:13 Patient Tobacco Use Status Current everyday Tobacco 11/20/23 13:13 Tobacco use type Cigarette 11/20/23 13:13 e-Cigarette/Vaping Use Never Used 11/20/23 13:13 Thrive Assessment: Date of Thrive Assessment Date Thrive assessed 08/04/23 11/20/23 13:13 Telehealth Telehealth Telehealth Platform: Telephone Location of provider rendering services: practice address Location of patient: address on file Patient Identification confirmed using: Name, : Yes Telehealth method: voice only Patient verbally consented to treatment: Yes Patient verbally consented to billing insurance company: Yes Patient informed of any privacy concerns related to visit: Yes Minutes spent on Phone/Video with Pt.: 20 Assessment and Plan Assessment & Plan (1) Cricopharyngeal achalasia: Code(s): K22.0 - Achalasia of cardia Plan: As per HPI patient found to fairly severe achalasia in her pharynx. Has followed up with GI whom mentions perhaps needing an endoscopy. She did evidence of gastritis on barium swallow in her omeprazole was transitioned to pantoprazole. For now she will eat soft smooth food items in stay away from any choking hazard food items. (2) Carotid stenosis, right: Code(s): I65.21 - Occlusion and stenosis of right carotid artery Plan: Has had a long history of feeling very dizzy even to the point she falls at times. Carotid ultrasound showing right carotid stenosis thus triggered the need for CTA neck: Recent CTA head neck --> Atheromatous calcified plaque at both carotid bulbs, right more than left, as described above, with at least 90% diameter reduction stenosis of the right carotid bulb and less than 50% diameter reduction stenosis of the left carotid bulb by NASCET criteria. Has upcoming appt with vascular 12/10 We did long discussion about the need to quit smoking and patient does understand. Unfortunately has been very difficult for her to quit and continues to decline offers to start nicotine replacement or medication to help quit smoking. Orders: Orders Magnesium 6 Weeks E83.42 - Hypomagnesemia TSH reflex Free T4 6 Weeks R79.89 - Other specified abnormal findings of blood chemistry Coding Level of Care Code Tele Est Pt Level 3 (48729) Diagnoses Cricopharyngeal achalasia K22.0 Carotid stenosis, right I65.21
== END 2023-11-20 15:30 | disposition home or self-care (01) ==
LOC: HO.HMGH 13:07
PROVIDERS: PCP Physician Assistant; Visit Provider Physician Assistant
DX: K22.0 Achalasia of cardia (principal); I65.21 Occlusion and stenosis of right carotid artery
CPT/HCPCS: 99442

== ENCOUNTER 2023-11-25 12:57 | Outpatient (AMB) | payer MEDICARE, SELFPAY ==
[2023-11-25 13:00] VITALS: BMI 15.9
--- NOTE | 2023-11-25 13:00 | MHC.OFFVIS ---
Vital Signs 11/25/23 13:00 Height 5 ft 4 in Weight 92 lb 9 oz BMI 15.9 Intake Visit Reasons: follow up CTA Neck 10/24/2023 Intake Note: Follow up CTA Neck 10/24/23, Pt states Right Eye has increased blurred vision and loss of balance but states she also has sinus issues. Accompanied by: Family/Other Allergies cat dander Allergy (Unknown, Verified 11/25/23 13:06) Unknown morphine Allergy (Unknown, Verified 11/25/23 13:06) unknown seasonal allergies Allergy (Unknown, Uncoded 11/25/23 13:06) Unknown HPI HPI follow up CTA Neck 10/24/2023: Details: Very pleasant 60-year-old female presents for follow-up regarding carotid stenosis. She was actually seen by her primary care team who noted a carotid bruit. Upon workup she was noted to have high-grade carotid stenosis on ultrasound. She now presents for follow-up with CT angiogram. She now presents for follow-up evaluation. Of note she is being maintained on an aspirin. Upon discussion with her she has difficulty ambulating secondary to spinal issues and osteoporosis. She was actually seen by pain management. [id number] does report that she does have shortness of breath after several feet. In terms of her carotids she is asymptomatic and denies any lateralizing signs or symptoms speech disturbances or amaurosis fugax. [facility] Medical History Left displaced femoral neck fracture Abnormal ECG Hyponatremia Hyperkalemia Acute kidney injury Acute respiratory failure with hypoxia Femoral neck fracture GERD (gastroesophageal reflux disease) JANAY (generalized anxiety disorder) IBS (irritable bowel syndrome) MDD (major depressive disorder) Pulmonary nodule Current smoker HTN (hypertension) Surgical History Hx of colonoscopy History of esophagogastroduodenoscopy (EGD) History of cervical discectomy Family History Father Lung cancer Brain cancer Mother CVD (cardiovascular disease) Breast cancer Son In good health Brother In good health Social History Household Members: None Household Members Other:: self Housing: House Do you presently have visiting nurse or other home services: No Alcohol intake: current Alcohol intake frequency: a few times a month Patient Tobacco Use Status: Current everyday Tobacco user Tobacco use type: Cigarette Cigarette Packs Per Day: 1 Cigarettes Per Day: 20.0 e-Cigarette/Vaping Use: Never Used Advance Directives Date on File: 10/21/22 service: No Current occupational status: retired Cognitive needs: No Hearing needs: No Vision needs: No Review of Systems Const All systems reviewed & are unremarkable except as noted in HPI and below Reports no additional complaints ENT Reports Normal hearing present Card Denies chest pain, Denies chest pain at rest, Denies chest pain with activity and Denies pedal edema Resp Denies cough GI Denies abdominal pain Musc Denies abnormal gait, Denies muscle cramps and Denies radiating pain into limb Skin/Breast Denies skin ulcer and Denies wounds Neuro Reports Normal hearing present and Denies abnormal gait Psych Reports no additional complaints Physical Exam Vital Signs: BMI result Body Mass Index 15.9 Const General: cooperative, healthy appearing and comfortable Orientation/consciousness: oriented to person, oriented to place and oriented to time HEENT Head: Yes normal to inspection Neck Neck: Yes normal visual inspection Carotids: no bruits Chest Chest palpation & inspection: normal inspection of the chest Resp Effort & Inspection: normal respiratory effort and able to speak in complete sentences Auscultation: clear to auscultation bilaterally, no crackles, no rales, no rhonchi and no wheezes Cardio Rate: regular rate Rhythm: regular rhythm Heart sounds: S1 normal heart sound present and S2 normal heart sound present Bruits: no carotid bruits Peripheral pulses: Peripheral pulses 2+ throughout GI Inspection: Yes normal to inspection Skin Wounds: no wounds Hair: normal Neuro General: oriented to person, oriented to place and oriented to time Cranial nerves: Yes CN's II-XII intact bilaterally and Yes Normal hearing present Cognition (Neuro): normal cognition Motor exam (neuro): 5/5 motor strength present throughout Extrem Other: venous exam: No significant superficial varicosities or spider telangiectasias, minimal edema General: No clubbing, No cyanosis and No edema Psych Appearance: grossly normal Mental Status: mental status grossly normal Speech and movement: Normal speech and movement present Results Reviewed Results Reviewed: CT angiogram dated 10/24/2023 but was not read until 11/12/2023 demonstrates 90%. Written report and images were reviewed. Less than 50% of left Assessment & Plan Assessment & Plan (1) Bilateral carotid artery stenosis: Code(s): I65.23 - Occlusion and stenosis of bilateral carotid arteries Category: Medical Plan: In short patient has high-grade right carotid stenosis. Patient will require right carotid endarterectomy. Risks benefits complications included but not limited to bleeding infection stroke and were discussed in detail with the patient. She understood and consented. Of note [id number] was at bedside as well. She will require cardiac risk stratification in addition to pulmonary risk stratification. She has been preliminarily booked for December 14. Thank you for allowing us to assist in her care. If there are any questions or concerns please do not hesitate to contact us. Coding Level of Care Code Est Pt Level 4 (31722) Diagnoses Bilateral carotid artery stenosis I65.23
== END 2023-11-25 13:36 | disposition home or self-care (01) ==
PROVIDERS: PCP Physician Assistant; Visit Provider Surgery Vascular Surgery
DX: I65.23 Occlusion and stenosis of bilateral carotid arteries (principal)
CPT/HCPCS: 99214

== ENCOUNTER → 2023-11-25 12:57 | Outpatient (BNVA) | payer MEDICARE, SELFPAY | PROVIDERS: PCP Physician Assistant; Visit Provider Surgery Vascular Surgery | DX: I65.23 Occlusion and stenosis of bilateral carotid arteries (principal) | CPT/HCPCS: 99212 ==

== ENCOUNTER 2023-12-04 11:01 | Outpatient (AMB) | payer MEDICARE, SELFPAY ==
--- NOTE | 2023-12-04 11:08 | A.OFFVIS_ITS ---
Vital Signs 12/04/23 11:09 Height 5 ft 4 in Weight 90 lb 6.232 oz BMI 15.5 BP 134/80 Blood Pressure Location Lt brachial Position Sitting Pulse 100 Intake Visit Reasons: Pre op / Dr. Uriarte/ carotid endarterectomy 12/14 Intake Note: Pre-op carotid endarterectomy 12/14 [employer] Required: No Allergies cat dander Allergy (Unknown, Verified 11/25/23 13:06) Unknown morphine Allergy (Unknown, Verified 11/25/23 13:06) unknown seasonal allergies Allergy (Unknown, Uncoded 11/25/23 13:06) Unknown Medication List - Last Reconciled 12/04/23 by Awais Pavon MD acetaminophen 650 mg (2 x 325 mg) PO Q6H PRN 30 days albuterol sulfate 90 mcg/actuation 1 puff inhalation QID PRN aspirin 325 mg PO DAILY atorvastatin 40 mg PO BEDTIME back brace As directed blood pressure test kit-small As directed cyclobenzaprine 5 mg PO BID PRN 15 days fluticasone propionate 50 mcg/actuation (Flonase Allergy Relief) 1 spray intranasal BID PRN lisinopril 20 mg PO DAILY 90 days magnesium oxide 400 mg PO DAILY methylcellulose (laxative) (Citrucel) 500 mg PO DAILY PRN metoprolol succinate ER 25 mg PO DAILY montelukast 10 mg PO DAILY 90 days multivitamin 1 tab PO DAILY pantoprazole 40 mg PO DAILY HPI Comments Details: Leslie was referred here for perioperative cardiovascular risk stratification prior to right carotid endarterectomy to be scheduled in near future. Patient was noted to have critical right carotid artery disease. She was admitted in July with noncardiac issues and subsequently had abnormal EKG and at the time had cardiovascular workup including myocardial perfusion imaging and echocardiogram which were both within normal limits. Since then she says she is limited activity due to her back issues. Unfortunately continues to smoke. She also has underlying what appears to be pulmonary parenchymal disease. She denies any exertional chest pain consistently. Denies any orthopnea, PND, leg edema. [facility] Medical History Left displaced femoral neck fracture Abnormal ECG Hyponatremia Hyperkalemia Acute kidney injury Acute respiratory failure with hypoxia Femoral neck fracture GERD (gastroesophageal reflux disease) JANAY (generalized anxiety disorder) IBS (irritable bowel syndrome) MDD (major depressive disorder) Pulmonary nodule Current smoker HTN (hypertension) Surgical History Hx of colonoscopy History of esophagogastroduodenoscopy (EGD) History of cervical discectomy Family History Father Lung cancer Brain cancer Mother CVD (cardiovascular disease) Breast cancer Son In good health Brother In good health Social History Household Members: None Household Members Other:: self Housing: House Do you presently have visiting nurse or other home services: No Alcohol intake: current Alcohol intake frequency: a few times a month Patient Tobacco Use Status: Current everyday Tobacco user Tobacco use type: Cigarette Cigarette Packs Per Day: 1 Cigarettes Per Day: 20.0 e-Cigarette/Vaping Use: Never Used Advance Directives Date on File: 10/21/22 service: No Current occupational status: retired Cognitive needs: No Hearing needs: No Vision needs: No Review of Systems Const Denies chills, Denies daytime sleepiness, Denies fatigue, Denies fever(s), Denies frequent falls, Denies poor appetite, Denies snoring, Denies stops breathing during sleep, Denies weakness, Denies weight gain and Denies weight loss Eyes Denies loss of vision ENT Denies dizziness and Denies hearing loss Card Denies chest pain, Denies claudication, Denies leg edema, Denies lightheadedness, Denies palpitations, Denies dyspnea, Denies dyspnea on exertion and Denies orthopnea Resp Denies cough, Denies excessive phlegm production, Denies dyspnea, Denies dyspnea on exertion, Denies snoring and Denies wheezing GI Denies abdominal pain, Denies hematochezia, Denies change in bowel habits, Denies nausea and Denies vomiting Denies urinary frequency and Denies dysuria Musc Denies arthralgias, Denies muscle weakness, Denies numbness and Denies other (frequent falls) Skin/Breast Denies nail changes and Denies rash Neuro Denies Abnormal speech present, Denies dizziness, Denies frequent falls, Denies loss of vision, Denies memory loss, Denies numbness and Denies weakness Psych Denies depression and Denies memory loss Endo Denies fatigue and Denies palpitations Jefe/Lymph Reports easy bruising and Reports other (anemia) Aller/Immun Denies wheezing Physical Exam Vital Signs: Last Vital Signs Pulse 100 12/04/23 11:09 BP 134/80 12/04/23 11:09 BMI result Body Mass Index 15.5 Const General: cooperative, comfortable, alert and awake Nutritional Appearance: malnourished and other (Frail elderly woman) Orientation/consciousness: patient oriented x3 Limitations: no limitations Neck Neck: Yes trachea midline, Yes supple and Yes no JVD Carotids: bruit Resp Effort & Inspection: normal respiratory effort Auscultation: clear to auscultation bilaterally and diminished lung sounds Cardio Jugular venous distension: no JVD Rate: regular rate Rhythm: regular rhythm Heart sounds: S1 normal heart sound present, S2 normal heart sound present, no click, no gallops and no murmurs Skin General skin exam: no rashes or lesions noted Neuro General: patient oriented x3 and no focal motor deficits Speech: No Abnormal speech present Extrem General: Yes no clubbing, cyanosis or edema Office Procedures EKG Details: EKG shows normal sinus rhythm with poor R-wave progression most likely due to her body habitus [id number], Complete Assessment & Plan Assessment & Plan (1) Preoperative cardiovascular examination: Code(s): Z01.810 - Encounter for preprocedural cardiovascular examination Plan: Preoperative cardiovascular risk stratification this elderly woman to undergo right carotid endarterectomy which is considered intermediate risk surgery. She has low exercise capacity although she has no new cardiac symptoms and her myocardial perfusion imaging within the last 6 months as well as echocardiogram last 6 months are within acceptable limits with no evidence of myocardial ischemia. She is currently optimized to undergo carotid surgery with low to intermediate risk for perioperative cardiovascular morbidity mortality, although I think she might have more complications related to her pulmonary disease rather than cardiac disease. In the long run she should be on aggressive risk factor modification and be on aspirin therapy for life. She had also been high- intensity statin therapy with target goal LDL less than 70 mg/dL. Complete smoking cessation was advised. She says she is trying. Will follow up in the clinic if need be. Thank you for allowing me to partake in her care Medications: Changed From methylcellulose (laxative) (Citrucel) 500 mg PO DAILY 30 tabs 2RF K59.00 - Constipation, unspecified To methylcellulose (laxative) (Citrucel) 500 mg PO DAILY PRN K59.00 - Constipation, unspecified Coding Level of Care Code Est Pt Level 4 (25936) Diagnoses Preoperative cardiovascular examination Z01.810 CPT Codes EKG - CPT: 72814-[id number], Complete ([id number])
[2023-12-04 11:09] VITALS: BP 134/80; PULSE 100; BMI 15.5
== END 2023-12-04 11:50 | disposition home or self-care (01) ==
PROVIDERS: PCP Physician Assistant; Visit Provider Internal Medicine Cardiovascular Disease
DX: I65.21 Occlusion and stenosis of right carotid artery (principal); Z01.810 Encounter for preprocedural cardiovascular examination
CPT/HCPCS: 93010; 99214

== ENCOUNTER → 2023-12-04 11:01 | Outpatient (BNVA) | payer MEDICARE, SELFPAY | PROVIDERS: PCP Physician Assistant; Visit Provider Internal Medicine Cardiovascular Disease | DX: Z01.810 Encounter for preprocedural cardiovascular examination (principal) | CPT/HCPCS: 93005; 99212 ==

== ENCOUNTER 2023-12-08 | Outpatient (REF) | payer MEDICARE, SELFPAY ==
[2023-12-08 13:21] VITALS: BP 158/93; RESP 20; O2SAT 97; BMI 16.1
--- NOTE | 2023-12-08 13:36 | P.CONAN_ITS ---
HPI - Anesthesia Eval Consult details Narrative: 68yo F for Right Carotid Endarterectomy, rescheduled to 02/02/24 Preop labs with low Na and elevated K. Meds adjusted by PCP, redraw pending. Cardiac optimized Pulmo pending Continues to smoke. No recent illness. Seasonal allergies No CP/SOB with very minimal activity r/t back pain radiating to LE Cricopharyngeal achalasia - careful with eating , follows with PCP Hx multiple cervical disc surgeries GERD: ppi controls COPD: rescue inhaler daily or QOD PMFSH Active Problems Active Problems: All Active Problems Elevated TSH (Acute) Cricopharyngeal achalasia (Acute) Leg pain (Acute) Bilateral carotid artery stenosis (Acute) Carotid stenosis, right (Acute) Carotid bruit (Acute) Dysphagia (Acute) COPD exacerbation (Acute) Hypoxia (Acute) Vertebrogenic low back pain (Acute) Spinal stenosis of lumbar region with neurogenic claudication (Acute) Age related osteoporosis (Acute) History of left hip hemiarthroplasty (Acute) Postural hypotension (Acute) Hypomagnesemia (Acute) Hyperkalemia (Acute) Hyponatremia (Acute) Postmenopausal (Acute) L1 vertebral fracture (Acute) Swelling of both lower extremities (Acute) Compression fracture of L1 lumbar vertebra (Acute) Elevated erythrocyte sedimentation rate (Acute) Elevated C-reactive protein (CRP) (Acute) Failure to thrive in adult (Acute) Chronic diarrhea (Acute) Elevated fasting blood sugar (Acute) Macrocytic anemia (Acute) Cachexia (Acute) Lumbar spondylosis (Acute) Sinus infection (Acute) Breast cancer screening (Acute) Colon cancer screening (Acute) Low weight (Acute) Tobacco dependence (Acute) Annual physical exam (Acute) Chronic sinusitis (Acute) Allergic asthma (Acute) Allergic rhinitis (Acute) Lumbar spine pain (Acute) HTN (hypertension) (Acute) Past Medical History Medical History Cachexia Nasal sinus congestion Cricopharyngeal achalasia Spinal stenosis COPD (chronic obstructive pulmonary disease) Acute respiratory failure with hypoxia Femoral neck fracture GERD (gastroesophageal reflux disease) JANAY (generalized anxiety disorder) IBS (irritable bowel syndrome) MDD (major depressive disorder) Pulmonary nodule Current smoker HTN (hypertension) Family History Family History Father Lung cancer Brain cancer Mother CVD (cardiovascular disease) Breast cancer Son In good health Brother In good health Family history of problems with anesthesia: No Surgical History Surgical History Hx of bilateral cataract extraction History of total left hip arthroplasty Hx of colonoscopy History of esophagogastroduodenoscopy (EGD) History of cervical discectomy History of Problems with Anesthesia: No Social History Social History Household Members: None Household Members Other:: self Housing: House Housing Other:: upper level of 2 family home-brother lives on lower level Are you a primary patient care technician to a significant other at home: No Do you presently have visiting nurse or other home services: No Alcohol intake: current Alcohol intake frequency: a few times a month Patient Tobacco Use Status: Current everyday Tobacco user Tobacco use type: Cigarette Cigarette Packs Per Day: 1 Cigarettes Per Day: 15 Years Smoked: 38 e-Cigarette/Vaping Use: Never Used Advance Directives Date on File: 10/21/22 service: No Current occupational status: retired Cognitive needs: No Hearing needs: No Vision needs: No Meds Allergies Allergy/AdvReac Type Severity Reaction Status Date / Time cat dander Allergy Intermediate Itchy Verified 01/01/24 10:04 Eyes/nasal congestion morphine Allergy Intermediate Flushing-fa Verified 01/01/24 10:04 cial Seasonal Allergies Allergy Intermediate Itchy Eyes Verified 01/01/24 10:04 Home Medications ?Medication ?Instructions ?Recorded ?Confirmed ?Last Taken ?Type fluticasone propionate 50 1 spray intranasal BID PRN 10/21/22 01/01/24 Unknown History mcg/actuation nasal Allergic Symptoms spray,suspension (Flonase Allergy Relief) multivitamin 1 tab PO QAM 10/21/22 01/01/24 10/21/22 History magnesium oxide 400 mg PO QAM 08/03/23 01/01/24 Unknown History aspirin 325 mg tablet 325 mg PO QAM 12/04/23 01/01/24 Unknown History methylcellulose (laxative) 500 mg 500 mg PO DAILY PRN Constipation 12/04/23 01/01/24 Unknown History tablet (Citrucel) montelukast 10 mg tablet 10 mg PO QAM 12/08/23 01/01/24 Unknown History pantoprazole 40 mg tablet,delayed 40 mg PO QAM 12/08/23 01/01/24 Unknown History release Exam Height,Weight and Vital Signs: Height 5 ft 4 in Weight 42.6 kg Last Vital Signs Resp 20 12/08/23 13:21 BP 158/93 H 12/08/23 13:21 Pulse Ox 97 12/08/23 13:21 O2 Del Method Room Air 12/08/23 13:21 Narrative Narrative: EKG 11/2023 normal sinus rhythm with poor R-wave progression most likely due to her body habitus CT angio neck 10/2023 IMPRESSION: 1. Atheromatous calcified plaque at both carotid bulbs, right more than left, as described above, with at least 90% diameter reduction stenosis of the right carotid bulb and less than 50% diameter reduction stenosis of the left carotid bulb by NASCET criteria. Limited assessment of the mid left and right cervical ICAs due to swallowing motion artifact. 2. Mild atheromatous changes of the aortic arch and brachiocephalic vessels without significant focal stenosis. 3. No significant focal stenoses or occlusions are identified intracranially. 4. Pulmonary findings, as described above, with two 4 mm noncalcified right upper lobe pulmonary nodules and probable biapical fibrotic changes. (If this patient is not at elevated risk (no history of smoking or underlying malignancy), then no further follow up for this is suggested on the basis of the current Fleischner criteria. If the patient is at elevated risk, then a follow up CT the chest would be recommended in 12 months.) 5. Cervical degenerative changes and postoperative changes, as described above. Possible central disc herniation at C4-C5 with possible ventral cord impingement. NM king perf SPECT rest & str 07/2023 Impression: 1. Myocardial perfusion imaging study shows normal myocardial perfusion. 2. Gated LVEF is > 70% during stress and rest. 3. Transient ischemic dilatation not present. EKG component of the test reported separately. ECHO 2023 Conclusions: - 1. Normal LV ejection fraction of 60 65% with upper limits of normal wall thickness with impaired relaxation filling pattern 2. Normal cardiac valvular Dopplers 3. Upper limits of normal RV systolic pressure 4. Upper limits of normal ascending aortic size 5. Trivial pericardial effusion Airway Mallampati Class: II TM Dist: >3cm Neck ROM: Limited Loose/Missing/Broken Teeth: No (permanent bridges and crowns) Heart: RRR Lungs: Dim, but clear Assessment and Plan Assessment Anesthesia Assessment: Anesthesia Plan Discussed, Smoking Cess. Discussed and PAT Visit Final Anesthetic Review Family History of Problems with Anesthesia: No History of Problems with Anesthesia: No
[2023-12-08 15:39] LABS: Hematocrit 39.9 % (37.0-47.0); Hemoglobin 14.7 g/dl (12.0-16.0); Mean Corpuscular HGB Conc 36.8 g/dl (31.0-35.0); Mean Corpuscular Hemoglobin 35.9 pg (27.0-33.0); Mean Corpuscular Volume 97.6 fL (80.0-98.0); Mean Platelet Volume 8.8 fL (9.4-12.3); Platelet Count 405 X10*3/uL (160-400); Red Blood Count 4.09 X10*6/uL (4.20-5.50); Red Cell Distribution Width 14.4 % (11.0-16.0); White Blood Count 7.3 X10*3/uL (4.8-10.8)
[2023-12-08 15:47] LABS: INTERNATIONAL NORM RATIO 0.8 (0.9-1.1); Prothrombin Time 9.7 SEC (11.1-13.3)
[2023-12-08 16:20] LABS: Anion Gap 15 (12-20); Blood Urea Nitrogen 16 mg/dL (9-16); Calcium 9.9 mg/dL (8.4-10.2); Carbon Dioxide 26 mmol/L (22-29); Chloride 94 mmol/L (96-108); Creatinine Clr Calc Pharmacy 53.2; Estimated Glomerular Filt Rate > 60; Glucose Random 135 mg/dL (60-115); Magnesium 1.6 mg/dL (1.6-2.6); Potassium 5.6 mmol/L (3.3-5.1); Sodium 129 mmol/L (135-145)
== END 2023-12-08 00:01 | disposition home or self-care (01) ==
LOC: HO.PAT
PROVIDERS: Nurse Practitioner; PCP Physician Assistant; Visit Provider Surgery Vascular Surgery
DX: I65.21 Occlusion and stenosis of right carotid artery (principal)
CPT/HCPCS: 36415; 80048; 83735; 85027; 85610; 85730; 86850; 86900; 86901

== ENCOUNTER 2023-12-09 09:59 | Outpatient (AMB) | payer MEDICARE, SELFPAY ==
--- NOTE | 2023-12-09 09:27 | MHC.OFFVIS ---
Vital Signs 12/09/23 10:09 Height 5 ft 4 in Weight 92 lb 8 oz BMI 15.9 BP 162/98 H Blood Pressure Location Lt brachial Position Sitting Pulse 107 H Pulse Source Pulse Oximeter Pulse Oximetry (%) 96 Oxygen Delivery Method Room Air Intake Visit Reasons: pre -op pulm clearance Allergies cat dander Allergy (Intermediate, Verified 12/09/23 10:12) Itchy Eyes/nasal congestion morphine Allergy (Intermediate, Verified 12/09/23 10:12) Flushing-facial Seasonal Allergies Allergy (Intermediate, Verified 12/09/23 10:12) Itchy Eyes HPI HPI pre -op pulm clearance: Details: Leslie is a pleasant 68 year old female, current 1 ppd smoker with 40 pack year history, with underlying COPD, Cricopharyngeal achalasia, GERD, HTN, h/o acute respiratory failure with hypoxia and pulmonary nodule. She was referred by Dr. Uriarte for preoperative pulmonary evaluation for proposed right endarterectomy on 12/15/23. She reports poorly controlled COPD with persistent dyspnea on exertion, chest tightness and dry cough. She denies wheezing. She is current prescribed albuterol MDI which she uses multiple times per day with good effect. She has not trialed any other inhalers. She also reports seasonal allergies and post nasal drip contributing to cough, taking an antihistamine PRN. She denies any recent respiratory infections or need for prednisone. She reports hospitalization related to acute respiratory failure with hypoxia in the past, no longer requiring supplemental oxygen. [facility] Medical History (Updated 12/10/23 @ 17:12 by Tash England NP) Cachexia Nasal sinus congestion Cricopharyngeal achalasia Spinal stenosis COPD (chronic obstructive pulmonary disease) Acute respiratory failure with hypoxia Femoral neck fracture GERD (gastroesophageal reflux disease) JANAY (generalized anxiety disorder) IBS (irritable bowel syndrome) MDD (major depressive disorder) Pulmonary nodule Current smoker HTN (hypertension) Surgical History (Updated 12/08/23 @ 13:11 by Michelle Travis RN) Hx of bilateral cataract extraction History of total left hip arthroplasty Hx of colonoscopy History of esophagogastroduodenoscopy (EGD) History of cervical discectomy Family History Father Lung cancer Brain cancer Mother CVD (cardiovascular disease) Breast cancer Son In good health Brother In good health Social History Household Members: None Household Members Other:: self Housing: House Housing Other:: upper level of 2 family home-brother lives on lower level Are you a primary housekeeper caregiver to a significant other at home: No Do you presently have visiting nurse or other home services: No Alcohol intake: current Alcohol intake frequency: a few times a month Patient Tobacco Use Status: Current everyday Tobacco user Tobacco use type: Cigarette Cigarette Packs Per Day: 1 Cigarettes Per Day: 15 Years Smoked: 38 e-Cigarette/Vaping Use: Never Used Advance Directives Date on File: 10/21/22 service: No Current occupational status: retired Cognitive needs: No Hearing needs: No Vision needs: No Review of Systems Const Denies chills, Denies excessive sweating, Denies fever(s), Denies headache(s) and Denies night sweats Eyes Denies dry eyes, Denies irritation and Denies itchy eyes ENT Reports Normal hearing present, Denies headache(s), Denies nasal congestion, Denies nasal discharge and Denies sore throat Card Denies chest pain, Denies chest pain at rest, Denies chest pain with activity, Denies claudication, Denies leg edema, Denies orthopnea and Denies paroxysmal nocturnal dyspnea Resp Denies chest congestion, Denies excessive phlegm production, Denies pain on inspiration, Denies pain with cough and Denies stridor Musc Denies myalgias Neuro Reports Normal hearing present and Denies headache(s) Endo Denies excessive sweating Jefe/Lymph Denies lymphadenopathy Aller/Immun Denies itchy eyes and Denies seasonal rhinorrhea Physical Exam Vital Signs: Last Vital Signs Pulse 107 H 12/09/23 10:09 BP 162/98 H 12/09/23 10:09 Pulse Ox 96 12/09/23 10:09 Oxygen Delivery Method Room Air 12/09/23 10:09 BMI result Body Mass Index 15.9 Const General: cooperative, comfortable, no acute distress and alert Nutritional Appearance: thin Orientation/consciousness: patient oriented x3 Limitations: ambulation with cane HEENT Head: Yes normal to inspection, Yes normocephalic and Yes atraumatic Ears: hearing grossly normal bilaterally and external ears normal Eyes General: appearance normal, both eyes and all related structures Eyelids: Yes eyelids normal Sclerae: sclerae normal EOM: EOMs intact bilaterally Neck Neck: Yes normal visual inspection and Yes no lymphadenopathy Lymphatic: no lymphadenopathy noted Chest Chest palpation & inspection: normal inspection of the chest Resp Effort & Inspection: normal respiratory effort, able to speak in complete sentences, no audible wheezes, no cough, no stridor, not tachypneic, no tripod positioning and no use of accessory muscles Auscultation: diminished lung sounds Cardio Jugular venous distension: no JVD Rate: regular rate Rhythm: regular rhythm Skin Other: warm, dry General skin exam: no rashes or lesions noted Neuro General: patient oriented x3 Cranial nerves: Yes Normal hearing present Cognition (Neuro): normal cognition Gait exam (Neuro): Normal gait present Extrem General: Yes normal to inspection, Yes capillary refill normal, Yes no clubbing, cyanosis or edema and Yes no pedal edema Psych Appearance: grossly normal and well kempt Speech and movement: Normal speech and movement present and Clear speech present Affect: normal affect Attitude: cooperative Thought process: Normal thought process present Thought content: Normal thought content present Insight: Good insight present (Psych) Judgement: Good judgement present (Psych) Office Procedures 6 Minute Walk Time:: 10:55 SPO2 % at rest: 97 Pulse at rest: 100 SPO2 % during excercise: 90 Pulse during excercise: 122 SPO2 % after excercise: 94 Pulse after excercise: 121 Distance in yards walked: 90 Mandi Score: 7 Performance Observations:: Patient walked on level ground using a walker for balance/stability. Patient maintained O2 saturation of 90% or greater and pulse rate of 122 or lower for the entirety of the walk. Patient walks slowly and reports she tires easily. Denies respiratory distress and did not require the use of supplemental oxygen. [address]195 - 6 Minute Walk Spirometry Testing Spirometry Comments: In office spirometry performed. [place] provider. [address]16- Spirometry Assessment & Plan Assessment & Plan (1) COPD (chronic obstructive pulmonary disease): Code(s): J44.9 - Chronic obstructive pulmonary disease, unspecified Category: Medical (2) Encounter for preoperative pulmonary examination: Code(s): Z01.811 - Encounter for preprocedural respiratory examination Category: Medical (3) Tobacco dependence: Code(s): F17.200 - Nicotine dependence, unspecified, uncomplicated Category: Medical Plan Leslie presents for preoperative pulmonary evaluation for upcoming right endarterectomy scheduled on 12/15/[address] Uriarte. Patient reports poorly controlled COPD with persistent cough, wheezing and dyspnea. She has been using albuterol MDI multiple times per day with good effect. Discussed trialing a daily inhaler however she declined at this time. She was agreeable to trialing duoneb BID. Patient with significant smoking history, currently smoking and has not had any recent chest CT. Will enter. CXR 07/2023 revealed hyperinflation suggestive of COPD, otherwise unremarkable. Discussed smoking cessation however patient not ready to quit at this time. Spirometry performed in office, FEV1/FVC 53 FEV1 91, suggestive of moderate to severe COPD. 6MWT performed and patient does not require supplemental oxygen at this time. She denies any recent respiratory infections or need for prednisone in the last three months. Respiratory exam was unremarkable today. At this time, patient is considered low risk for perioperative pulmonary complications for proposed procedure. Consider bronchodilators in the perioperative period. All questions were answered and patient is in agreement of plan. Will follow up to review response to duoneb and results of chest CT. Orders: Orders AMB 6 minute walk 12/09/23 J44.9 - Chronic obstructive pulmonary disease, unspecified AMB Spirometry Testing 12/09/23 J44.9 - Chronic obstructive pulmonary disease, unspecified CT chest wo IV con Today F17.200 - Nicotine dependence, unspecified, uncomplicated Medications: New ipratropium-albuterol 0.5 mg-3 mg(2.5 mg base)/3 mL 3 mL inhalation BID PRN 180 mL 0RF wheezing J44.9 - Chronic obstructive pulmonary disease, unspecified Coding Level of Care Code New Pt Level 4 (75863) Diagnoses COPD (chronic obstructive pulmonary disease) J44.9 Encounter for preoperative pulmonary examination Z01.811 Tobacco dependence F17.200 CPT Codes Coding ([id number]) Spirometry - CPT: 95554- Spirometry ([id number])
[2023-12-09 10:09] VITALS: BP 162/98; PULSE 107; O2SAT 96; BMI 15.9
[2023-12-09 11:15] VITALS: PULSE 100; O2SAT 97
== END 2023-12-09 11:25 | disposition home or self-care (01) ==
PROVIDERS: PCP Physician Assistant; Referring Provider Surgery Vascular Surgery; Visit Provider Nurse Practitioner Family
DX: J44.9 Chronic obstructive pulmonary disease, unspecified (principal); F17.200 Nicotine dependence, unspecified, uncomplicated; Z01.811 Encounter for preprocedural respiratory examination
CPT/HCPCS: 94010; 94618; 99204

== ENCOUNTER → 2023-12-09 09:59 | Outpatient (BNVA) | payer MEDICARE, SELFPAY | PROVIDERS: PCP Physician Assistant; Referring Provider Surgery Vascular Surgery; Visit Provider Nurse Practitioner Family | DX: Z01.811 Encounter for preprocedural respiratory examination (principal); J44.9 Chronic obstructive pulmonary disease, unspecified; F17.210 Nicotine dependence, cigarettes, uncomplicated | CPT/HCPCS: 94010; 94618; 99202 ==

== ENCOUNTER 2023-12-10 10:44 | Outpatient (REF) | payer MEDICARE, SELFPAY ==
[2023-12-10 12:31] LABS: Anion Gap 15 (12-20); Blood Urea Nitrogen 14 mg/dL (9-16); Calcium 9.9 mg/dL (8.4-10.2); Carbon Dioxide 27 mmol/L (22-29); Chloride 94 mmol/L (96-108); Estimated Glomerular Filt Rate > 60; Glucose Random 123 mg/dL (60-115); Potassium 5.7 mmol/L (3.3-5.1); Sodium 130 mmol/L (135-145)
== END 2023-12-10 10:45 | disposition home or self-care (01) ==
LOC: HO.LAB 10:44
PROVIDERS: PCP Physician Assistant; Visit Provider Surgery Vascular Surgery
DX: E87.5 Hyperkalemia (principal)
CPT/HCPCS: 36415; 80048

== ENCOUNTER 2023-12-16 10:33 | Outpatient (AMB) | payer MEDICARE, SELFPAY ==
[2023-12-16 11:04] VITALS: BP 164/100; PULSE 62; O2SAT 100; BMI 16.1
--- NOTE | 2023-12-16 11:04 | MHC.PC.OV ---
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 Required: No Accompanied by: Self / Same As Patient Allergies cat dander Allergy (Intermediate, Verified 12/16/23 11:10) Itchy Eyes/nasal congestion morphine Allergy (Intermediate, Verified 12/16/23 11:10) Flushing-facial Seasonal Allergies Allergy (Intermediate, Verified 12/16/23 11:10) Itchy Eyes Medication List - Last Reconciled 12/16/23 by Michel Dodd PA-C acetaminophen 650 mg (2 x 325 mg) PO Q6H PRN 30 days albuterol sulfate 2.5 mg (3 mL) inhalation Q6H PRN 30 days albuterol sulfate 90 mcg/actuation 1 puff inhalation QID PRN aspirin 325 mg PO QAM atorvastatin 40 mg PO BEDTIME back brace As directed blood pressure test kit-small As directed cyclobenzaprine 5 mg PO BID PRN 15 days fluticasone propionate 50 mcg/actuation (Flonase Allergy Relief) 1 spray intranasal BID PRN ipratropium-albuterol 0.5 mg-3 mg(2.5 mg base)/3 mL 3 mL inhalation BID PRN lisinopril 20 mg PO QAM magnesium oxide 400 mg PO QAM methylcellulose (laxative) (Citrucel) 500 mg PO DAILY PRN montelukast 10 mg PO QAM multivitamin 1 tab PO QAM pantoprazole 40 mg PO QAM Tobacco use date assessed: 06/30/23 Fall risk assessment: No Falls in past year Last assessed Fall Risk: 12/16/23 Dental Screening Dental Screen Date: 06/30/23 HPI Unstable labs HPI Details Patient is a 68-year-old female here today for evaluation. She is due for an carotid endarterectomy though due to potassium and sodium being she has not a candidate for surgery.. Patient's past medical history significant for hypertension, COPD, tobacco use disorder, recent lumbar vertebral compression fracture, chronic allergic rhinitis. Has gotten Pulm and cardiology clearance. Hyperkalemia: Most recent potassium at 5.7. Unclear etiology to her hyperkalemia at this time. Will hold her lisinopril which may be a causative agent and transition her to amlodipine for blood pressure control. Also will supply her with polystyrene liquid for the next week. Advised to hold her multivitamin which may have potassium in it. PLAN: Will recheck basic metabolic panel in 2 weeks. Carotid stenosis: Patient is due for carotid endarterectomy --> Recent CTA of neck--> theromatous calcified plaque at both carotid bulbs, right more than left, as described above, with at least 90% diameter reduction stenosis of the right carotid bulb and less than 50% diameter reduction stenosis of the left carotid bulb by NASCET criteria [facility] Medical History Cachexia Nasal sinus congestion Cricopharyngeal achalasia Spinal stenosis COPD (chronic obstructive pulmonary disease) Acute respiratory failure with hypoxia Femoral neck fracture GERD (gastroesophageal reflux disease) JANAY (generalized anxiety disorder) IBS (irritable bowel syndrome) MDD (major depressive disorder) Pulmonary nodule Current smoker HTN (hypertension) Surgical History Hx of bilateral cataract extraction History of total left hip arthroplasty Hx of colonoscopy History of esophagogastroduodenoscopy (EGD) History of cervical discectomy Family History Father Lung cancer Brain cancer Mother CVD (cardiovascular disease) Breast cancer Son In good health Brother In good health Social History Household Members: None Household Members Other:: self Housing: House Housing Other:: upper level of 2 family home-brother lives on lower level Are you a primary home health care case manager to a significant other at home: No Do you presently have visiting nurse or other home services: No Alcohol intake: current Alcohol intake frequency: a few times a month Patient Tobacco Use Status: Current everyday Tobacco user Tobacco use type: Cigarette Cigarette Packs Per Day: 1 Cigarettes Per Day: 15 Years Smoked: 38 e-Cigarette/Vaping Use: Never Used Advance Directives Date on File: 10/21/22 service: No Current occupational status: retired Cognitive needs: No Hearing needs: No Vision needs: No Questionnaire Thrive Questionnaire Date Thrive assessed: 08/04/23 JANAY-7 AMB Questionnaire JANAY-7 Date JANAY - 7 assessed: 06/30/23 Source: Developed by Drs. Sal Porras, Alma Marks, Amado Kaur and colleagues, with an educational katya from [employer]. Review of Systems Const Denies headache(s) Eyes Denies loss of vision ENT Denies vertigo, Denies dizziness, Denies headache(s) and Denies sore throat Card Denies chest pain, Denies leg edema and Denies lightheadedness Resp Denies cough, Denies hemoptysis and Denies wheezing GI Denies abdominal pain, Denies melena, Denies constipation, Denies diarrhea and Denies vomiting Denies urinary frequency, Denies dysuria and Denies urinary urgency Musc Denies arthralgias, Denies joint swelling, Denies numbness and Denies tingling Neuro Denies Abnormal speech present, Denies behavioral changes, Denies vertigo, Denies dizziness, Denies headache(s), Denies loss of vision, Denies memory loss, Denies numbness and Denies tingling Psych Denies anxiety, Denies behavioral changes, Denies depression, Denies memory loss and Denies panic attacks Jefe/Lymph Denies easy bleeding and Denies easy bruising Aller/Immun Denies wheezing Physical exam (Primary Care) Vital Signs: Last Vital Signs Pulse 62 12/16/23 11:04 BP 164/100 H 12/16/23 11:04 Pulse Ox 100 12/16/23 11:04 Oxygen Delivery Method Room Air 12/16/23 11:04 BMI result Body Mass Index 16.1 Tobacco/Smoking Status: Tobacco use Status Tobacco use date assessed 06/30/23 12/16/23 11:06 Patient Tobacco Use Status Current everyday Tobacco 12/16/23 11:06 Tobacco use type Cigarette 12/16/23 11:06 e-Cigarette/Vaping Use Never Used 12/16/23 11:06 Thrive Assessment: Date of Thrive Assessment Date Thrive assessed 08/04/23 12/16/23 11:06 Const General: healthy appearing, no acute distress, alert and awake Nutritional Appearance: well nourished Orientation/consciousness: oriented to person, oriented to place and oriented to time HENMT Ears: TM's normal bilaterally General nose exam: Normal nasal mucous membranes and turbinates present Eyes Conjunctivae: conjunctivae normal Sclerae: sclerae normal Pupils: Equal, round and reactive pupils present Neck Neck: Yes no lymphadenopathy and Yes no JVD Thyroid: Thyroid normal Carotids: no bruits Resp Effort & Inspection: normal respiratory effort and not tachypneic Auscultation: no crackles, no rales, no rhonchi and no wheezes Cardio Rate: regular rate Rhythm: regular rhythm Heart sounds: no murmurs and normal S1 and S2 GI Palpation (GI): Soft to palpation, nontender, no hepatomegaly and no splenomegaly Auscultation: normal bowel sounds Skin General skin exam: no rashes or lesions noted and dry skin Neuro General: oriented to person, oriented to place and oriented to time Cranial nerves: Yes Equal, round and reactive pupils present Speech: No Abnormal speech present Gait exam (Neuro): Normal gait present Motor exam (neuro): no tremor noted Extrem Right upper extremity: full ROM Left upper extremity: full ROM Right lower extremity: full ROM; no edema Left lower extremity: full ROM; no edema Psych Mental Status: mental status grossly normal Speech and movement: Normal speech and movement present Affect: normal affect Attitude: cooperative Thought process: Normal thought process present Results AMB Hemoglobin A1c AMB Hemoglobin A1c 4.7 % Last Edit by REJI Constantino on 12/16/23 11:13 Results Reviewed Results Reviewed: Laboratory Last Values Hgb A1c (Clinic) 4.7 % (4.0-6.0) 12/16/23 11:12 Assessment and Plan Assessment & Plan (1) Hyperkalemia: Code(s): E87.5 - Hyperkalemia Plan: Most recent potassium at 5.7. Unclear etiology to her hyperkalemia at this time. Will hold her lisinopril which may be a causative agent and transition her to amlodipine for blood pressure control. Also will supply her with polystyrene liquid for the next week. Advised to hold her multivitamin which may have potassium in it. PLAN: Will recheck basic metabolic panel in 2 week Orders: Orders AMB Hemoglobin A1c 12/16/23 R73.09 - Other abnormal glucose Basic Metabolic Panel 12/16/23 E87.5 - Hyperkalemia Medications: New sodium polystyrene sulf-sorbtl 15-20 gram/60 mL 60 mL PO DAILY 420 mL 0RF 7 days E87.5 - Hyperkalemia amlodipine 5 mg PO DAILY 30 tabs 1RF 30 days Coding Level of Care Code Est Pt Level 3 (25786) Diagnoses Hyperkalemia E87.5
== END 2023-12-16 11:46 | disposition home or self-care (01) ==
PROVIDERS: PCP Physician Assistant; Visit Provider Physician Assistant
DX: R73.09 Other abnormal glucose (principal)
CPT/HCPCS: 83036; 99213

== ENCOUNTER 2023-12-30 10:37 | Outpatient (REF) | payer MEDICARE, SELFPAY ==
[2023-12-30 11:34] LABS: Anion Gap 16 (12-20); Blood Urea Nitrogen 15 mg/dL (9-16); Calcium 9.1 mg/dL (8.4-10.2); Carbon Dioxide 26 mmol/L (22-29); Chloride 96 mmol/L (96-108); Estimated Glomerular Filt Rate > 60; Glucose Random 86 mg/dL (60-115); Magnesium 1.6 mg/dL (1.6-2.6); Potassium 3.6 mmol/L (3.3-5.1); Sodium 134 mmol/L (135-145)
[2023-12-30 11:50] LABS: TSH reflex Free T4 2.33 uIU/mL (0.32-4.0)
== END 2023-12-30 10:38 | disposition home or self-care (01) ==
LOC: HO.LAB 10:37
PROVIDERS: PCP Physician Assistant; Visit Provider Physician Assistant
DX: E83.42 Hypomagnesemia (principal); E87.5 Hyperkalemia; R79.89 Other specified abnormal findings of blood chemistry
CPT/HCPCS: 36415; 80048; 83735; 84443

== ENCOUNTER 2024-01-01 09:59 | Outpatient (AMB) | payer MEDICARE, SELFPAY ==
--- NOTE | 2024-01-01 10:00 | A.OFFPC_ITS ---
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 Information Interpreted: non-clinical & clinical Life Insurance Sales: Not Required per policy Accompanied by: Self / Same As Patient Allergies cat dander Allergy (Intermediate, Verified 01/01/24 10:04) Itchy Eyes/nasal congestion morphine Allergy (Intermediate, Verified 01/01/24 10:04) Flushing-facial Seasonal Allergies Allergy (Intermediate, Verified 01/01/24 10:04) Itchy Eyes Medication List - Last Reconciled 01/01/24 by Michel Dodd PA-C acetaminophen 650 mg (2 x 325 mg) PO Q6H PRN 30 days albuterol sulfate 2.5 mg (3 mL) inhalation Q6H PRN 30 days albuterol sulfate 90 mcg/actuation 1 puff inhalation QID PRN amlodipine 5 mg PO DAILY 30 days aspirin 325 mg PO QAM atorvastatin 40 mg PO BEDTIME back brace As directed blood pressure test kit-small As directed cyclobenzaprine 5 mg PO BID PRN 15 days fluticasone propionate 50 mcg/actuation (Flonase Allergy Relief) 1 spray intranasal BID PRN ipratropium-albuterol 0.5 mg-3 mg(2.5 mg base)/3 mL 3 mL inhalation BID PRN lisinopril 20 mg PO QAM magnesium oxide 400 mg PO QAM methylcellulose (laxative) (Citrucel) 500 mg PO DAILY PRN montelukast 10 mg PO QAM multivitamin 1 tab PO QAM pantoprazole 40 mg PO QAM sodium polystyrene sulf-sorbtl 15-20 gram/60 mL 60 mL PO DAILY 7 days Tobacco use date assessed: 06/30/23 Fall risk assessment: No Falls in past year Last assessed Fall Risk: 01/01/24 Dental Screening Dental Screen Date: 06/30/23 HPI f/u potassium (okay to double book) HPI Details Patient is a 68-year-old female being evaluated today via telephone. She is due for an carotid endarterectomy though due to potassium and sodium being she has not a candidate for surgery.. Patient's past medical history significant for hypertension, COPD, tobacco use disorder, recent lumbar vertebral compression fracture, chronic allergic rhinitis. Has gotten Pulm and cardiology clearance. Hyperkalemia: Patient did start potassium lowering medication. Replete labs showing improved potassium. Now will be scheduled for endarterectomy in January of 2024. PLAN: For now will use potassium lowering medication 3 times week. Will continue to hold off of lisinopril Carotid stenosis: Patient is due for carotid endarterectomy --> Recent CTA of neck--> theromatous c alcified plaque at both carotid bulbs, right more than left, as described above, with at least 90% diameter reduction stenosis of the right carotid bulb and less than 50% diameter reduction stenosis of the left carotid bulb by NASCET criteria PFSH Medical History Cachexia Nasal sinus congestion Cricopharyngeal achalasia Spinal stenosis COPD (chronic obstructive pulmonary disease) Acute respiratory failure with hypoxia Femoral neck fracture GERD (gastroesophageal reflux disease) JANAY (generalized anxiety disorder) IBS (irritable bowel syndrome) MDD (major depressive disorder) Pulmonary nodule Current smoker HTN (hypertension) Surgical History Hx of bilateral cataract extraction History of total left hip arthroplasty Hx of colonoscopy History of esophagogastroduodenoscopy (EGD) History of cervical discectomy Family History Father Lung cancer Brain cancer Mother CVD (cardiovascular disease) Breast cancer Son In good health Brother In good health Social History Household Members: None Household Members Other:: self Housing: House Housing Other:: upper level of 2 family home-brother lives on lower level Are you a primary child care supervisor to a significant other at home: No Do you presently have visiting nurse or other home services: No Alcohol intake: current Alcohol intake frequency: a few times a month Patient Tobacco Use Status: Current everyday Tobacco user Tobacco use type: Cigarette Cigarette Packs Per Day: 1 Cigarettes Per Day: 15 Years Smoked: 38 Packs Per Year: 38 Packs per year/per ci.50 e-Cigarette/Vaping Use: Never Used Advance Directives Date on File: 10/21/22 service: No Current occupational status: retired Cognitive needs: No Hearing needs: No Vision needs: No Questionnaire Thrive Questionnaire Date Thrive assessed: 08/04/23 JANAY-7 AMB Questionnaire JANAY-7 Date JANAY - 7 assessed: 06/30/23 Source: Developed by Drs. Sal Porras, Alma Marks, Amado Kaur and colleagues, with an educational katya from [employer]. Review of Systems Const Denies headache(s) Eyes Denies loss of vision ENT Denies vertigo, Denies dizziness, Denies headache(s) and Denies sore throat Card Denies chest pain, Denies leg edema and Denies lightheadedness Resp Denies cough, Denies hemoptysis and Denies wheezing GI Denies abdominal pain, Denies melena, Denies constipation, Denies diarrhea and Denies vomiting Denies urinary frequency, Denies dysuria and Denies urinary urgency Musc Denies arthralgias, Denies joint swelling, Denies numbness and Denies tingling Neuro Denies behavioral changes, Denies vertigo, Denies dizziness, Denies headache(s), Denies loss of vision, Denies memory loss, Denies numbness and Denies tingling Psych Denies anxiety, Denies behavioral changes, Denies depression, Denies memory loss and Denies panic attacks Jefe/Lymph Denies easy bleeding and Denies easy bruising Aller/Immun Denies wheezing Physical exam (Primary Care) Tobacco/Smoking Status: Tobacco use Status Tobacco use date assessed 06/30/23 01/01/24 10:01 Patient Tobacco Use Status Current everyday Tobacco 01/01/24 10:01 Tobacco use type Cigarette 01/01/24 10:01 e-Cigarette/Vaping Use Never Used 01/01/24 10:01 Thrive Assessment: Date of Thrive Assessment Date Thrive assessed 08/04/23 01/01/24 10:01 Telehealth Telehealth Telehealth Platform: Telephone Location of provider rendering services: practice address Location of patient: address on file Patient Identification confirmed using: Name, : Yes Telehealth method: voice only Patient verbally consented to treatment: Yes Patient verbally consented to billing insurance company: Yes Patient informed of any privacy concerns related to visit: Yes Minutes spent on Phone/Video with Pt.: 11 Assessment and Plan Assessment & Plan (1) Hyperkalemia: Code(s): E87.5 - Hyperkalemia Plan: Potassium stabilized on most recent labs . Held her lisinopril and started amlodipine. Will continue to hold lisinopril Will continue polystyrene 3x per week (fri- Fri- Fri) until after surgery. Patient is cleared for needed carotid endarterectomy Will monitor electrolytes post operatively. (2) Bilateral carotid artery stenosis: Code(s): I65.23 - Occlusion and stenosis of bilateral carotid arteries Plan: As per HPI patient has severe carotid stenosis. Has symptoms of dizziness and being on balance when walking. She is due for an endarterectomy Medications: Changed From sodium polystyrene sulf-sorbtl 15-20 gram/60 mL 60 mL PO DAILY 7 days 420 mL 0RF E87.5 - Hyperkalemia To sodium polystyrene sulf-sorbtl 15-20 gram/60 mL 60 mL PO .Friday, Fri, Friday 473 mL 1RF 4 weeks E87.5 - Hyperkalemia Coding Level of Care Code Tele Est Pt Level 3 (62494) Diagnoses Hyperkalemia E87.5 Bilateral carotid artery stenosis I65.23
== END 2024-01-01 15:29 | disposition home or self-care (01) ==
LOC: HO.HMGH 09:59
PROVIDERS: PCP Physician Assistant; Visit Provider Physician Assistant
DX: E87.5 Hyperkalemia (principal); I65.23 Occlusion and stenosis of bilateral carotid arteries
CPT/HCPCS: 99442

== ENCOUNTER 2024-02-10 10:30 | Outpatient (AMB) | payer MEDICARE, SELFPAY ==
[2024-02-10 10:32] VITALS: BP 160/90; PULSE 117; O2SAT 93; BMI 16.7
--- NOTE | 2024-02-10 10:32 | MHC.PC.OV ---
Vital Signs 02/10/24 10:32 Height 5 ft 4 in Blood Pressure Location Lt brachial Pulse Source Pulse Oximeter Oxygen Delivery Method Room Air Intake Visit Reasons: f/u carotid surgery Allergies cat dander Allergy (Intermediate, Verified 01/01/24 10:04) Itchy Eyes/nasal congestion morphine Allergy (Intermediate, Verified 01/01/24 10:04) Flushing-facial Seasonal Allergies Allergy (Intermediate, Verified 01/01/24 10:04) Itchy Eyes Tobacco use date assessed: 06/30/23 Dental Screening Dental Screen Date: 06/30/23 COUNTS INCLUDE 234 BEDS AT [facility] Medical History Cachexia Nasal sinus congestion Cricopharyngeal achalasia Spinal stenosis COPD (chronic obstructive pulmonary disease) Acute respiratory failure with hypoxia Femoral neck fracture GERD (gastroesophageal reflux disease) JANAY (generalized anxiety disorder) IBS (irritable bowel syndrome) MDD (major depressive disorder) Pulmonary nodule Current smoker HTN (hypertension) Surgical History Hx of bilateral cataract extraction History of total left hip arthroplasty Hx of colonoscopy History of esophagogastroduodenoscopy (EGD) History of cervical discectomy Family History Father Lung cancer Brain cancer Mother CVD (cardiovascular disease) Breast cancer Son In good health Brother In good health Social History Household Members: None Household Members Other:: self Housing: House Housing Other:: upper level of 2 family home-brother lives on lower level Are you a primary resident care spec to a significant other at home: No Do you presently have visiting nurse or other home services: No Alcohol intake: current Alcohol intake frequency: a few times a month Patient Tobacco Use Status: Current everyday Tobacco user Tobacco use type: Cigarette Cigarette Packs Per Day: 1 Cigarettes Per Day: 15 Years Smoked: 38 e-Cigarette/Vaping Use: Never Used Advance Directives Date on File: 10/21/22 service: No Current occupational status: retired Cognitive needs: No Hearing needs: No Vision needs: No Questionnaire Thrive Questionnaire Date Thrive assessed: 08/04/23 JANAY-7 AMB Questionnaire JANAY-7 Date JANAY - 7 assessed: 06/30/23 Source: Developed by Drs. Sal Porras, Alma Marks, Amado Kaur and colleagues, with an educational katya from [email or web address]. Physical exam (Primary Care) Tobacco/Smoking Status: Tobacco use Status Tobacco use date assessed 06/30/23 01/01/24 10:01 Patient Tobacco Use Status Current everyday Tobacco 01/01/24 10:01 Tobacco use type Cigarette 01/01/24 10:01 e-Cigarette/Vaping Use Never Used 01/01/24 10:01 Thrive Assessment: Date of Thrive Assessment Date Thrive assessed 08/04/23 01/01/24 10:01 Coding
--- NOTE | 2024-02-10 10:51 | A.OFFPC_ITS ---
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 Accompanied by: Self / Same As Patient Allergies cat dander Allergy (Intermediate, Verified 02/10/24 10:52) Itchy Eyes/nasal congestion morphine Allergy (Intermediate, Verified 02/10/24 10:52) Flushing-facial Seasonal Allergies Allergy (Intermediate, Verified 02/10/24 10:52) Itchy Eyes Medication List - Last Reconciled 02/10/24 by Michel Dodd PA-C acetaminophen 650 mg (2 x 325 mg) PO Q6H PRN 30 days albuterol sulfate 2.5 mg (3 mL) inhalation Q6H PRN 30 days albuterol sulfate 90 mcg/actuation 1 puff inhalation QID PRN aspirin 325 mg PO QAM atorvastatin 40 mg PO BEDTIME back brace As directed blood pressure test kit-small As directed cyclobenzaprine 5 mg PO BID PRN 15 days fluticasone propionate 50 mcg/actuation (Flonase Allergy Relief) 1 spray intranasal BID PRN ipratropium-albuterol 0.5 mg-3 mg(2.5 mg base)/3 mL 3 mL inhalation BID PRN magnesium oxide 400 mg PO QAM methylcellulose (laxative) (Citrucel) 500 mg PO DAILY PRN metoprolol succinate ER 12.5 mg PO DAILY montelukast 10 mg PO QAM multivitamin 1 tab PO QAM pantoprazole 40 mg PO QAM sodium polystyrene sulf-sorbtl 15-20 gram/60 mL 60 mL PO .Friday, Fri, Friday 4 weeks Tobacco use date assessed: 06/30/23 Fall risk assessment: No Falls in past year Last assessed Fall Risk: 02/10/24 Dental Screening Dental Screen Date: 06/30/23 HPI [facility] [place] ED 01/30/24 HPI Details Patient is a 69-year-old female here today for an ER follow-up visit. Patient has a past medical history significant for COPD, tobacco use disorder, carotid stenosis. Was due for carotid stenosis surgery though was canceld due to staffing. She was seen recently at [facility] ER for signs and symptoms consistent with Congestive heart failure. She was found to be tachycardic and physical exam findings of elevated JVD. Was found to have elevated BNP She reports she was worked up for Congestive heart failure though no significant findings on EKG or echocardiogram. Of note was started on amlodipine about a month ago and did notice the pedal edema so I suspect that could be a side effect of calcium channel victorina. PLAN: Will stop calcium channel victorina and increase her metoprolol to 50 mg. Of note did have hyperkalemia thus will hold off on from Srikanth or Arb. Will continue to follow electrolytes [facility] Medical History Cachexia Nasal sinus congestion Cricopharyngeal achalasia Spinal stenosis COPD (chronic obstructive pulmonary disease) Acute respiratory failure with hypoxia Femoral neck fracture GERD (gastroesophageal reflux disease) JANAY (generalized anxiety disorder) IBS (irritable bowel syndrome) MDD (major depressive disorder) Pulmonary nodule Current smoker HTN (hypertension) Surgical History Hx of bilateral cataract extraction History of total left hip arthroplasty Hx of colonoscopy History of esophagogastroduodenoscopy (EGD) History of cervical discectomy Family History Father Lung cancer Brain cancer Mother CVD (cardiovascular disease) Breast cancer Son In good health Brother In good health Social History Household Members: None Household Members Other:: self Housing: House Housing Other:: upper level of 2 family home-brother lives on lower level Are you a primary primary care provider to a significant other at home: No Do you presently have visiting nurse or other home services: No Alcohol intake: current Alcohol intake frequency: a few times a month Patient Tobacco Use Status: Current everyday Tobacco user Tobacco use type: Cigarette Cigarette Packs Per Day: 1 Cigarettes Per Day: 15 Years Smoked: 38 e-Cigarette/Vaping Use: Never Used Advance Directives Date on File: 10/21/22 service: No Current occupational status: retired Cognitive needs: No Hearing needs: No Vision needs: No Questionnaire Thrive Questionnaire Date Thrive assessed: 08/04/23 JANAY-7 AMB Questionnaire JANAY-7 Date JANAY - 7 assessed: 06/30/23 Source: Developed by Drs. Sal Porras, Alma Marks, Amado Kaur and colleagues, with an educational katya from [employer] Review of Systems Const Denies headache(s) Eyes Denies loss of vision ENT Denies vertigo, Denies dizziness, Denies headache(s) and Denies sore throat Card Denies chest pain, Denies leg edema and Denies lightheadedness Resp Denies cough, Denies hemoptysis and Denies wheezing GI Denies abdominal pain, Denies melena, Denies constipation, Denies diarrhea and Denies vomiting Denies urinary frequency, Denies dysuria and Denies urinary urgency Musc Denies arthralgias, Denies joint swelling, Denies numbness and Denies tingling Neuro Denies Abnormal speech present, Denies behavioral changes, Denies vertigo, Denies dizziness, Denies headache(s), Denies loss of vision, Denies memory loss, Denies numbness and Denies tingling Psych Denies anxiety, Denies behavioral changes, Denies depression, Denies memory loss and Denies panic attacks Jefe/Lymph Denies easy bleeding and Denies easy bruising Aller/Immun Denies wheezing Physical exam (Primary Care) Vital Signs: Last Vital Signs Pulse 117 H 02/10/24 10:32 BP 160/90 H 02/10/24 10:32 Pulse Ox 93 02/10/24 10:32 Oxygen Delivery Method Room Air 02/10/24 10:32 BMI result Body Mass Index 16.7 Tobacco/Smoking Status: Tobacco use Status Tobacco use date assessed 06/30/23 01/01/24 10:01 Patient Tobacco Use Status Current everyday Tobacco 01/01/24 10:01 Tobacco use type Cigarette 01/01/24 10:01 e-Cigarette/Vaping Use Never Used 01/01/24 10:01 Thrive Assessment: Date of Thrive Assessment Date Thrive assessed 08/04/23 01/01/24 10:01 Const General: healthy appearing, no acute distress, alert and awake Nutritional Appearance: well nourished Orientation/consciousness: oriented to person, oriented to place and oriented to time HENMT Ears: TM's normal bilaterally General nose exam: Normal nasal mucous membranes and turbinates present Eyes Conjunctivae: conjunctivae normal Sclerae: sclerae normal Pupils: Equal, round and reactive pupils present Neck Neck: Yes no lymphadenopathy and Yes no JVD Thyroid: Thyroid normal Carotids: no bruits Resp Effort & Inspection: normal respiratory effort and not tachypneic Auscultation: no crackles, no rales, no rhonchi and no wheezes Cardio Rate: regular rate Rhythm: regular rhythm Heart sounds: no murmurs and normal S1 and S2 GI Palpation (GI): Soft to palpation, nontender, no hepatomegaly and no splenomegaly Auscultation: normal bowel sounds Skin General skin exam: no rashes or lesions noted and dry skin Neuro General: oriented to person, oriented to place and oriented to time Cranial nerves: Yes Equal, round and reactive pupils present Speech: No Abnormal speech present Gait exam (Neuro): Normal gait present Motor exam (neuro): no tremor noted Extrem Right upper extremity: full ROM Left upper extremity: full ROM Right lower extremity: full ROM and edema Left lower extremity: full ROM and edema Psych Mental Status: mental status grossly normal Speech and movement: Normal speech and movement present Affect: normal affect Attitude: cooperative Thought process: Normal thought process present Assessment and Plan Assessment & Plan (1) HTN (hypertension): Code(s): I10 - Essential (primary) hypertension Qualifiers: Hypertension type: essential hypertension Qualified Code(s): I10 - Essential (primary) hypertension Plan: Blood pressure elevated today in office. She recently started amlodipine and noted pedal edema. Did have workup at [facility] though no significant Congestive heart failure noted. Patient does not regularly monitor blood pressure at home and agrees to start doing so. Will start higher dose of metoprolol for better blood pressure control and consider starting hydrochlorothiazide if blood pressures remain above 140/90 (2) Bilateral carotid artery stenosis: Code(s): I65.23 - Occlusion and stenosis of bilateral carotid arteries Plan: As per HPI patient has severe carotid stenosis. Has symptoms of dizziness and being on balance when walking. She is due for an endarterectomy (3) Hyperkalemia: Code(s): E87.5 - Hyperkalemia Plan: Potassium stabilized on most recent labs . Held her lisinopril and started amlodipine. Will continue to hold lisinopril Will continue polystyrene 3x per week (mon- Wed- Fri) until after surgery. Patient is cleared for needed carotid endarterectomy Will monitor electrolytes post operatively. (4) Lower extremity edema: Code(s): R60.0 - Localized edema Plan: I suspect she is having side effect of calcium channel victorina. Will stop calcium channel victorina increase her dose of metoprolol for blood pressure control. Will consider starting HCTZ as well. Orders: Orders Basic Metabolic Panel Today E87.1 - Hypo-osmolality and hyponatremia Magnesium Today E83.42 - Hypomagnesemia Medications: New metoprolol succinate ER 50 mg PO DAILY 30 days 30 tabs 1RF I10 - Essential (primary) hypertension Discontinued amlodipine Discontinued Reason: Doctor's Order 5 mg PO DAILY 30 days 30 tabs 1RF Coding Level of Care Code Est Pt Level 4 (58303) Diagnoses Essential hypertension I10 Hypertension type: essential hypertension Bilateral carotid artery stenosis I65.23 Hyperkalemia E87.5 Lower extremity edema R60.0
== END 2024-02-10 11:21 | disposition home or self-care (01) ==
PROVIDERS: PCP Physician Assistant; Visit Provider Physician Assistant
DX: I10 Essential (primary) hypertension (principal); I65.23 Occlusion and stenosis of bilateral carotid arteries; E87.5 Hyperkalemia; R60.0 Localized edema
CPT/HCPCS: 99214

== ENCOUNTER 2024-02-17 13:43 | Outpatient (AMB) | payer MEDICARE, SELFPAY ==
--- NOTE | 2024-02-17 13:43 | MHC.OFFVIS ---
Vital Signs 02/17/24 13:44 Height 5 ft 4 in Weight 97 lb 6 oz BMI 16.7 Intake Visit Reasons: Discuss Surgery Intake Note: pt was scheduled for R CEA in December 2023, which was r/s due to labwork and unable to be r/s until Feb 2024. She was seen at [facility] ED due to loss of balance issues. Last CTA Neck done on 10/24/23 Accompanied by: Family/Other Allergies cat dander Allergy (Intermediate, Verified 02/17/24 13:57) Itchy Eyes/nasal congestion morphine Allergy (Intermediate, Verified 02/17/24 13:57) Flushing-facial Seasonal Allergies Allergy (Intermediate, Verified 02/17/24 13:57) Itchy Eyes HPI HPI Discuss Surgery: Details: Very complex 69-year-old female presents for follow-up regarding carotid stenosis. She was seen by her primary care team and subsequently worked up and actually scheduled for carotid surgery. Unfortunately due to scheduling issues she had to be pushed back. In the interim she ended up going to [facility] for some lower extremity swelling. She was subsequently worked up. And actually had an EKG and echo which showed to be normal. In addition her laboratory workup there was within normal limits and had a sodium of 139 and a potassium of 4.9. She was subsequently discharged. She has seen her primary care and was sent back for rescheduling for the OR. She is eager to move forward with her surgery. [facility] Medical History Cachexia Nasal sinus congestion Cricopharyngeal achalasia Spinal stenosis COPD (chronic obstructive pulmonary disease) Acute respiratory failure with hypoxia Femoral neck fracture GERD (gastroesophageal reflux disease) JANAY (generalized anxiety disorder) IBS (irritable bowel syndrome) MDD (major depressive disorder) Pulmonary nodule Current smoker HTN (hypertension) Surgical History Hx of bilateral cataract extraction History of total left hip arthroplasty Hx of colonoscopy History of esophagogastroduodenoscopy (EGD) History of cervical discectomy Family History Father Lung cancer Brain cancer Mother CVD (cardiovascular disease) Breast cancer Son In good health Brother In good health Social History Household Members: None Household Members Other:: self Housing: House Housing Other:: upper level of 2 family home-brother lives on lower level Are you a primary animal care attendant to a significant other at home: No Do you presently have visiting nurse or other home services: No Alcohol intake: current Alcohol intake frequency: a few times a month Patient Tobacco Use Status: Current everyday Tobacco user Tobacco use type: Cigarette Cigarette Packs Per Day: 1 Cigarettes Per Day: 15 Years Smoked: 38 e-Cigarette/Vaping Use: Never Used Advance Directives Date on File: 10/21/22 service: No Current occupational status: retired Cognitive needs: No Hearing needs: No Vision needs: No Review of Systems Const All systems reviewed & are unremarkable except as noted in HPI and below Reports no additional complaints ENT Reports Normal hearing present Card Denies chest pain, Denies chest pain at rest, Denies chest pain with activity and Denies pedal edema Resp Denies cough GI Denies abdominal pain Musc Denies abnormal gait, Denies muscle cramps and Denies radiating pain into limb Skin/Breast Denies skin ulcer and Denies wounds Neuro Reports Normal hearing present and Denies abnormal gait Psych Reports no additional complaints Physical Exam Vital Signs: BMI result Body Mass Index 16.7 Const General: cooperative, healthy appearing and comfortable Orientation/consciousness: oriented to person, oriented to place and oriented to time HEENT Head: Yes normal to inspection Neck Neck: Yes normal visual inspection Carotids: no bruits Chest Chest palpation & inspection: normal inspection of the chest Resp Effort & Inspection: normal respiratory effort and able to speak in complete sentences Auscultation: clear to auscultation bilaterally, no crackles, no rales, no rhonchi and no wheezes Cardio Rate: regular rate Rhythm: regular rhythm Heart sounds: S1 normal heart sound present and S2 normal heart sound present Bruits: no carotid bruits Peripheral pulses: Peripheral pulses 2+ throughout GI Inspection: Yes normal to inspection Skin Wounds: no wounds Hair: normal Neuro General: oriented to person, oriented to place and oriented to time Cranial nerves: Yes CN's II-XII intact bilaterally and Yes Normal hearing present Cognition (Neuro): normal cognition Motor exam (neuro): 5/5 motor strength present throughout Extrem Other: venous exam: No significant superficial varicosities or spider telangiectasias, minimal edema General: No clubbing, No cyanosis and No edema Psych Appearance: grossly normal Mental Status: mental status grossly normal Speech and movement: Normal speech and movement present Assessment & Plan Assessment & Plan (1) Bilateral carotid artery stenosis: Code(s): I65.23 - Occlusion and stenosis of bilateral carotid arteries Category: Medical Plan: In short patient has high-grade right carotid stenosis. She will require right carotid endarterectomy risks benefits complications including but not limited to bleeding infection stroke and were discussed in detail with the patient. She understood and consented. Of note family member was at bedside during discussion. She did undergo pulmonary evaluation on 12/09/2023 and was stable for surgery . In addition she was seen by Cardiology on 12/04/2023 and was considered to be intermediate risk for surgery. We will schedule her as soon as possible. Thank you for allowing us to assist in her care. If there are any questions or concerns please do not hesitate to contact us. Please note a longitudinal relationship has been created with the patient and we have been following and surveillance this chronic condition. Coding Level of Care Code Est Pt Level 4 (58826) Complex EM visit Add On G2211 Diagnoses Bilateral carotid artery stenosis I65.23
[2024-02-17 13:44] VITALS: BMI 16.7
== END 2024-02-17 14:30 | disposition home or self-care (01) ==
PROVIDERS: PCP Physician Assistant; Visit Provider Surgery Vascular Surgery
DX: I65.23 Occlusion and stenosis of bilateral carotid arteries (principal)
CPT/HCPCS: 99214; G2211

== ENCOUNTER 2024-02-17 13:43 | Outpatient (REF) | payer MEDICARE, SELFPAY ==
[2024-02-17 17:17] LABS: Alanine Aminotransferase 5 U/L (0-31); Albumin Level 3.6 g/dL (3.5-5.0); Alkaline Phosphatase 115 U/L (39-117); Anion Gap 18 (12-20); Aspartate Amino Transferase 19 U/L (5-31); Bilirubin Total 0.3 mg/dL (0.0-1.0); Blood Urea Nitrogen 12 mg/dL (9-16); Calcium 9.5 mg/dL (8.4-10.2); Carbon Dioxide 28 mmol/L (22-29); Chloride 95 mmol/L (96-108); Estimated Glomerular Filt Rate > 60; Glucose Random 110 mg/dL (60-115); Potassium 4.6 mmol/L (3.3-5.1); Sodium 136 mmol/L (135-145); Total Protein 7.2 g/dL (6.5-8.0)
[2024-03-02 22:13] LABS: Pancreatic Elastase-1 203 mcg/g
== END 2024-02-17 13:44 | disposition home or self-care (01) ==
LOC: HO.LAB 13:43
PROVIDERS: Absent Provider Nurse Practitioner Family; PCP Physician Assistant; Visit Provider Surgery Vascular Surgery
DX: Z00.00 Encounter for general adult medical examination without abnormal findings (principal); E83.42 Hypomagnesemia; K21.9 Gastro-esophageal reflux disease without esophagitis; R10.9 Unspecified abdominal pain; I65.23 Occlusion and stenosis of bilateral carotid arteries
CPT/HCPCS: 36415; 80053; 82656; 83735; 87338; 99212

== ENCOUNTER 2024-02-23 06:33 | Inpatient (IN) | payer MEDICARE, SELFPAY ==
[2024-02-23] VITALS (23 sets, daily range): BP systolic 126–193; BP diastolic 60–115; PULSE 63–101; RESP 12–18; TEMP 36.1–37; O2SAT 91–99; BMI 16.1
--- OUTSIDE RECORDS SUMMARY | 2024-02-23 06:35 | XMS_ITS | Continuity of Care Document ---
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 Name Role Phone Michel Griffiths Primary Care Physician [phone] Encounter [facility] Date(s): 01/29/24 - 01/30/[address] [address]- Encounter Diagnosis Congestive heart failure(Final) - 01/29/24 Discharge Disposition: A-D/C Home Attending Physician: Darien Hatch MD Admitting Physician: Efrem Howard MD Referring Physician: Not on Staff, Referring MD Allergies, Adverse Reactions, Alerts Substance Reaction Severity Status morphine Active Medications albuterol-ipratropium 3 mg-0.5 mg/3 ml inhalation solution 3 mL, Neb, 4 times a day, PRN as needed for shortness of breath or wheezing, # 1,080 mL, 0 Refills,Maintenance, 01/29/24 10:31:00 EDT, Solution, Partial fill upon patient request if the prescriptionis for a schedule II opioid drug. Start Date: 01/29/24 Status: Ordered alendronate 70 mg oral tablet 1 tablet = 70 mg, By Mouth, Every week, # 12 tablet, 0 Refills, Maintenance, 01/29/24 10:31:00 EDT,Tablet, Partial fill upon patient request if the prescription is for a schedule II opioid drug. Start Date: 01/29/24 Status: Ordered amLODIPine 5 mg oral tablet 1 tablet = 5 mg, By Mouth, Daily, # 30 tablet, 0 Refills, Maintenance, 01/29/24 10:31:00 EDT, Tablet, Partial fill upon patient request if the prescription is for a schedule II opioid drug. Start Date: 01/29/24 Status: Ordered amLODIPine 5 mg oral tablet 5 mg, Tablet, By Mouth, 01/30/24 9:00:00 EDT Start Date: 01/30/24 Stop Date: 01/30/24 Status: Completed atorvastatin 40 mg oral tablet 1 tablet = 40 mg, By Mouth, Daily, # 90 tablet, 0 Refills, Maintenance, 01/29/24 10:32:00 EDT, Tablet, Partial fill upon patient request if the prescription is for a schedule II opioid drug. Start Date: 01/29/24 Status: Ordered cyclobenzaprine 5 mg oral tablet 1 tablet = 5 mg, By Mouth, 3 times a day, # 90 tablet, 0 Refills, Maintenance, 01/29/24 10:31:00 EDT, Partial fill upon patient request if the prescription is for a schedule II opioid drug. Start Date: 01/29/24 Status: Ordered lisinopril 20 mg oral tablet 20 mg, 1, tablet, By Mouth, Daily, # 30 tablet, Refills 0, Maintenance, 01/29/24 10:31:00 EDT, Partial fill upon patient request if the prescription is for a schedule II opioid drug. Start Date: 01/29/24 Status: Ordered lisinopril 20 mg oral tablet 20 mg, Tablet, By Mouth, 01/30/24 9:00:00 EDT Start Date: 01/30/24 Stop Date: 01/30/24 Status: Completed Metoprolol Succinate ER 25 mg oral tablet, extended release 1 tablet = 25 mg, By Mouth, Daily, # 30 tablet, 0 Refills, Maintenance, 01/29/24 10:31:00 EDT, ER Tablet, Partial fill upon patient request if the prescription is for a schedule II opioid drug. Start Date: 01/29/24 Status: Ordered Metoprolol Succinate ER 25 mg oral tablet, extended release 25 mg, XL Tablet, By Mouth, 01/30/24 9:00:00 EDT Start Date: 01/30/24 Stop Date: 01/30/24 Status: Completed montelukast 10 mg oral tablet 10 mg, 1, tablet, By Mouth, Daily, Refills 0, Maintenance, 01/29/24 10:31:00 EDT, Partial fill uponpatient request if the prescription is for a schedule II opioid drug. Start Date: 01/29/24 Status: Ordered pantoprazole 40 mg oral delayed release tablet 1 tablet = 40 mg, By Mouth, Daily, # 90 tablet, 0 Refills, Maintenance, 01/29/24 10:32:00 EDT, EC Tablet Start Date: 01/29/24 Status: Ordered sucralfate 1 gm oral tablet 1 Gm, 1, tablet, By Mouth, 2 times a day, # 60 tablet, Refills 0, Maintenance, 01/29/24 10:31:00 EDT, Partial fill upon patient request if the prescription is for a schedule II opioid drug. Start Date: 01/29/24 Status: Ordered Problem List Condition Confirmation Course Effective Dates Status Health St atus Informant Underweight Confirmed Active Results Radiology Reports * Exam Date Time Procedure Performing Provider Status 01/29/24 11:17 AM Chest Portable Lizabeth Bustamante; Auth (Verified) Notes: (Chest Portable) Reason For Exam: Shortness of Breath RESULT: Chest Portable Chest Portable INDICATION: cp, dizziness, weakness. due for right sided carotid surgery on friday but was postponed twice. Pt's vascular surgeon from [facility] told pt to go to [facility] to have to surgery che. family states pt can't wait. no expect in computer.; Reason: Shortness of Breath; Clinical Question(s): CHF COMPARISON: None. FINDINGS: LINES AND TUBES: None. LUNGS AND PLEURA: Clear lungs. Normal pulmonary vascularity. No pleural effusion. No pneumothorax. HEART, MEDIASTINUM AND KRIS: Heart is normal in size. Normal mediastinal and hilar contour. BONES AND SOFT TISSUES: No acute abnormality. IMPRESSION: No radiographic evidence of an acute cardiopulmonary process. I have personally reviewed the images and I agree with this report. WSN: [id number] Ordering Physician: Sawyer Forrester Dictated By: Susan Marks MD Dictated Date/Time: 01/29/24 11:42 a Reviewed By: Jese Whitley MD, V Signed By: Jese Whitley MD, V Signed Date/Time: 01/29/24 11:47 am Transcribed By: DAMARI Transcribed Date/Time: 01/29/24 11:30 am Vital Signs Most recent to oldest [Reference Range]: 1 2 3 Height 162.5 cm (01/30/24 4:25 AM) 162.5 cm (01/29/24 11:17 PM) 162.5 cm (01/29/24 8:16 PM) Weight 47 kg (01/29/24 1:57 PM) 41.8 kg (01/29/24 12:30 PM) 41.8 kg (01/29/24 10:25 AM) Oxygen Saturation [94-100 %] 91 % *L* (01/30/24 4:25 AM) 92 % *L* (01/29/24 11:17 PM) 90 % *L* (01/29/24 8:16 PM) Pulse Rate [55-90 bpm] 79 bpm (01/30/24 9:39 AM) 79 bpm (01/30/24 4:25 AM) 79 bpm (01/29/24 11:17 PM) Body Mass Index [18.5-24.99 kg/m2] 17.8 kg/m2 *L* (01/29/24 1:57 PM) 15.83 kg/m2 *L* (01/29/24 8:36 AM) 15.83 kg/m2 *L* (01/29/24 7:34 AM) Blood Pressure [90-138/55-84 mm Hg] 142/80mm Hg *H* (01/30/24 9:39 AM) 142/80mm Hg *H* (01/30/24 9:39 AM) 142/80mm Hg *H* (01/30/24 9:39 AM) Respiratory Rate [16-30 br/min] 18 br/min (01/30/24 4:25 AM) 18 br/min (01/29/24 11:17 PM) 17 br/min (01/29/24 10:54 PM) Temperature [96.8-100.4 DegF] 97.6 DegF (01/30/24 4:25 AM) 97.5 DegF (01/29/24 11:17 PM) 97.8 DegF (01/29/24 8:16 PM) Mode of Delivery (Oxygen) Room air (01/30/24 4:25 AM) Room air (01/29/24 11:17 PM) Room air (01/29/24 8:16 PM) Blood pressure sites Arm, right (01/30/24 4:25 AM) Arm, right (01/29/24 11:17 PM) Arm, right (01/29/24 8:16 PM) Temperature Route Oral (01/30/24 4:25 AM) Oral (01/29/24 11:17 PM) Oral (01/29/24 8:16 PM) Dry Weight 47 kg (01/29/24 1:57 PM) 41.8 kg (01/29/24 12:30 PM) 41.8 kg (01/29/24 10:25 AM) Social History Social History Type Response Smoking Status 10 or more cigarette s (1/2 pack or more)/day in last 30 days; Type: Cigarettes; Started at age: 14; entered on: 01/29/24 Sex Admission evaluation note * Dimas Justice: PERFORM Event Display: Admission Note Authored Date: [id number] Patient: ??FAINA PEGUERO ? Age:??68 Years?Sex:??Female?:??1955?? Chief Complaint/Reason for Consultation Chest pain History of Present Illness 68-year-old female with history of carotid artery stenosis,??followed by vascular in [place],??planning for outpatient endarterectomy,??hypertension, GERD, hyperlipidemia??presents with??intermittentchest pain??and lower extremity edema. ??Patient states??she has shortness of breath on exertion.??She admits??she is a 1 pack-a-day smoker.?? Her albuterol inhaler helps.?? She is vague about the chest pain??unable to describe it.?? Unclear if it is anginal.?? She is currently chest pain-free.?? 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 Troponin 28.?? BMP??around 500.?? Chest x-ray without any acute??cardiopulmonary process.?She was admitted for ACS rule out. At current time, patient denies any??chest pain, shortness of breath, diaphoresis, nausea, vomiting, presyncope or syncope. Review of Systems CONSTITUTIONAL: ??Denies any fever, chills, changes to weight or fatigue. EYES: Denies any changes to vision, burning or diplopia. HEENT: Denies any AGUILAR, nasal d/c, nose bleeds, changes to voice, vertigo, photophobia, hearing changes or dental problems. CV: See HPI PULM: Denies any SOB, wheezing, cough or production of phlegm. ABD: Denies any abdominal pain, N/V/D, heartburn, PRBPR, melena, or changes to bowel habits. : Denies any changes to frequency. ??Denies dysuria, urgency, straining, hematuria, incontinence.?? MS: Denies any joint or muscle pain, falls or changes to gait. NEURO: Denies any weakness, numbness, changes to speech confusion or memory loss. SKIN: Denies any rashes or lesions. ?? PSYCH: Denies any depression or anxiety. SIGECAPS negative. FUNCTIONAL: At baseline the patient is able to??ambulate with a cane Objective Vital Signs?? Temperature: 98.6 DegF (01/29/24 08:36:00) Temperature Route: Oral (01/29/24 08:36:00) Pulse Rate: 84 bpm (01/29/24 13:35:00) Respiratory Rate: 17 br/min (01/29/24 13:35:00) Systolic Blood Pressure:??147 mm Hg??High (01/29/24 13:35:00) Systolic Blood Pressure:??147 mm Hg??High (01/29/24 13:35:00) Systolic Blood Pressure:??147 mm Hg??High (01/29/24 13:35:00) Diastolic Blood Pressure:??89 mm Hg??High (01/29/24 13:35:00) Diastolic Blood Pressure:??89 mm Hg??High (01/29/24 13:35:00) Diastolic Blood Pressure:??89 mm Hg??High (01/29/24 13:35:00) Blood pressure sites: Arm, left (01/29/24 13:35:00) Mean Arterial Pressure: 114 mm Hg (01/29/24 08:36:00) Pulse Pressure: 58 mm Hg (01/29/24 13:35:00) Oxygen Saturation:??93 %??Low (01/29/24 13:35:00) Mode of Delivery (Oxygen): Room air (01/29/24 13:35:00) Early Warning Score: 2 (01/29/24 13:52:36) ? Physical Exam General: 68 year old female??lies in bed comfortably in no acute distress.?Patient is??cachectic HEENT: NCAT, moist oral mucosa, good dentition, oropharynx without erythema Card: RRR no murmur, non displaced PMI, no JVD, 2+ radial pulse B/L Resp: CTA B/L, no wheezing, rales, ronchi Abdomen: soft and non tender, bowel sounds WNL Extremities: Trace bilateral lower extremity edema Skin: Without rashes or lesions, good turgor Hem/Lymph: without bruising or lymphadenopathy Psych: appropriate affect Neuro: A&OX3, no focal motor deficits Assessment/Plan Assessment:??68-year-old female with history of carotid artery stenosis,??followed by vascular in [place],??planning for outpatient endarterectomy,??hypertension, GERD, hyperlipidemia??presents with??intermittent chest pain??and lower extremity edema. ?? Chest pain (R07.9) ?Grouped with??Lower extremity edema (R60.0),??Congestive heart failure (I50.9) ? Currently chest pain-free.??Patient is a poor historian.??Not sure if it is anginal Troponin 28, BNP around 500.??Chest x-ray looks okay ?? Plan Serial troponin Check echocardiogram ?? Chronic GERD (K21.9):??Continue PPI ?? Hyperlipidemia (E78.5):??Continue statin ?? Hypertension (I10):??Continue amlodipine, lisinopril, metoprolol ?? Carotid artery stenosis (I65.29):??Follow-up outpatient with vascular??in [place] ?Statin Ordered:??Statin Ordered ?? VTE Prophylaxis:??Pneumoboots?VTE Prophylaxis Assessment:??VTE Prophylaxis Ordered ?? Tobacco Use Treatment:??She is a pack-a-day smoker Encouraged her to quit She says she will do it cold turkey??and does not want a patch ?? Discharge Planning:??Home tomorrow ?? Ongoing Medical Necessity:??ACS rule out ?? Code Status:??Full code ?Order Code Status:??Code Status Ordered ? Histories Allergies Allergies ?(Active and Proposed Allergies Only) morphine? (Severity: Unknown severity, Onset: Unknown) ? Past Medical History/Problem List Active Problems(1) Underweight ? Past Surgical History No surgery history documented. ? Social History Alcohol Details:??Use: Current. ??Frequency: 1-2 times per month. Tobacco Details:??Use: 10 or more cigarettes (1/2 pack or more)/day in last 30 days. ??Type: Cigarettes. ??Started at age: 14 Years. ? Family History No Family History documented. ? Medications Home Medications Albuterol/Ipratropium (albuterol-ipratropium 3 mg-0.5 mg/3 ml inhalation solution)?3?Milliliter?Neb?4 times a day?as needed?as needed for shortness of breath or wheezing Alendronate (alendronate 70 mg oral tablet)?1?tab(s)?70?Milligram?By Mouth?Every week Amlodipine (amLODIPine 5 mg oral tablet)?1?tab(s)?5?Milligram?By Mouth?Daily Atorvastatin (atorvastatin 40 mg oral tablet)?1?tab(s)?40?Milligram?By Mouth?Daily Cyclobenzaprine (cyclobenzaprine 5 mg oral tablet)?1?tab(s)?5?Milligram?By Mouth?3 times a day Lisinopril (lisinopril 20 mg oral tablet)?20?Milligram?1?tablet?By Mouth?Daily Metoprolol (Metoprolol Succinate ER 25 mg oral tablet, extended release)?1?tab(s)?25?Milligram?By Mouth?Daily Montelukast (montelukast 10 mg oral tablet)?10?Milligram?1?tablet?By Mouth?Daily Pantoprazole (pantoprazole 40 mg oral delayed release tablet)?1?tab(s)?40?Milligram?By Mouth?Daily Sucralfate (sucralfate 1 gm oral tablet)?1?gram?1?tablet?By Mouth?2 times a day ? Results Recent Labs BLOOD COUNT & DIFF WBC 6.9 k/mm3 ()?? 01/29/2024 10:20 RBC 3.90 m/mm3 (Low)?? 01/29/2024 10:20 Hgb 14.0 Gm/dL ()?? 01/29/2024 10:20 Hct 40.0 % ()?? 01/29/2024 10:20 MCV 102.6 femtoliters (High)?? 01/29/2024 10:20 MCH 35.9 pg (High)?? 01/29/2024 10:20 MCHC 35.0 g/dL ()?? 01/29/2024 10:20 Platelet Count 305 k/mm3 ()?? 01/29/2024 10:20 RDW-SD 59.3 femtoliters (High)?? 01/29/2024 10:20 MPV 8.9 femtoliters (Low)?? 01/29/2024 10:20 Nucleated RBC (Automated) 0.0 #/100 WBC'S ()?? 01/29/2024 10:20 Abs. NRBC 0.0 k/mm3 ()?? 01/29/2024 10:20 Abs. Neut 5.4 k/mm3 ()?? 01/29/2024 10:20 Abs. Lymph 1.0 k/mm3 ()?? 01/29/2024 10:20 Abs. [place]ford 0.4 k/mm3 ()?? 01/29/2024 10:20 Abs. Eo 0.0 k/mm3 ()?? 01/29/2024 10:20 Abs. Baso 0.0 k/mm3 ()?? 01/29/2024 10:20 Neut % 78.2 % (High)?? 01/29/2024 10:20 Lymph % 13.8 % (Low)?? 01/29/2024 10:20 [place]ford % 6.4 % ()?? 01/29/2024 10:20 Eos % 0.6 % ()?? 01/29/2024 10:20 Baso % 0.6 % ()?? 01/29/2024 10:20 Imm Gran 0.4 % ()?? 01/29/2024 10:20 Abs. Imm Gran 0.0 k/mm3 ()?? 01/29/2024 10:20 ?? CARDIAC Nt-Probnp 609 pg/mL (High)?? 01/29/2024 10:20 High Sensitivity Troponin (HSTnT) 28 ng/L (High)?? 01/29/2024 10:20 ?? CHEM GENERAL Sodium 139 mmol/L ()?? 01/29/2024 10:20 Potassium 4.9 mmol/L ()?? 01/29/2024 10:20 Chloride 99 mmol/L ()?? 01/29/2024 10:20 Bicarbonate Level 27 mmol/L ()?? 01/29/2024 10:20 Anion Gap 13 ()?? 01/29/2024 10:20 Glucose Level 104 mg/dL (High)?? 01/29/2024 10:20 BUN 10 mg/dL ()?? 01/29/2024 10:20 Creatinine-Blood 0.58 mg/dL ()?? 01/29/2024 10:20 Estimated GFR Creatinine 99 ML/MIN/1.73 M2 ()?? 01/29/2024 10:20 Calcium 9.5 mg/dL ()?? 01/29/2024 10:20 Protein, Total 6.9 Gm/dL ()?? 01/29/2024 10:20 Albumin 4.4 Gm/dL ()?? 01/29/2024 10:20 AG Ratio 1.8 ()?? 01/29/2024 10:20 Alkaline Phosphatase 115 units/L (High)?? 01/29/2024 10:20 AST (SGOT) 22 units/L ()?? 01/29/2024 10:20 ALT (SGPT) 8 units/L ()?? 01/29/2024 10:20 Bilirubin, Total 0.5 mg/dL ()?? 01/29/2024 10:20 ?? URINE OTHER Est Creatinine Clearance 61.26 mL/min ()?? 01/29/2024 11:12 ? US Heart * Event Display: Echocardiogram - Complete Authored Date: [id number] Transthoracic Echocardiography Report (TTE) Patient Demographics Patient Name FAINA PEGUERO Date of Study 01/29/2024 Corporate Gender Female Facility Race Ethnicity Date of 1955 Height: 64.17 inches Age 68 year(s) Weight: 90.39 pounds Accession Number [id number] BSA: 1.4 m2 Room Number [id number] BMI: 15.43 kg/m2 Referring Physician Not on Staff Interpreting Fabio Angel DO Referring MD Physician Collins HARKINS Nurse Staff Industrial [facility] Cristal Fellow Faina Campo DO Indications Chest pain. Clinical History PAD CP Smoker Study Data Type of Study TTE procedure:Echo Complete-Doppler, Colorflow, M-Mode. Study Date01/29/2024 Start Time: 03:32 PM Study Location: [facility] Adult Echo Study Status: Echo lab Patient Status: Routine Technical Quality: Fair Blood Pressure:148/99 mmHg EKG: Normal sinus rhythm HR: 83 bpm 2D Measurements LV Diastolic Dimension: 3.8 cm LV Systolic Dimension: 2.4 cm LV Septum Diastolic: 1 cm LV PW Diastolic: 0.9 cm AO Root Dimension: 3.1 cm LA Dimension: 2.8 cm LA ESV (BP):31.5 ml LVOT Stroke Volume: 85.85 ml LA ESV Index: 22 ml/m2 Stroke Volume Index61.32 ml/m2 LVOT: 2.1 cm Cardiac Index:5.09 l/min/m2 Ascending Aorta:3.7 cm Doppler Measurements AV Peak Velocity: 116 cm/s MV Peak E-Wave: 86.8 cm/s AV Peak Gradient: 5.38 mmHg MV Peak A-Wave: 89.3 cm/s AV Mean Gradient: 4 mmHg MV E/A Ratio: 0.97 AV VTI:30.7 cm MV P1/2t: 77 msec LVOT Peak Velocity: 94.9 cm/s LVOT VTI24.8 cm MV Deceleration Time: 259 msec AV Area (Continuity):2.8 cm2 MV Area (PHT): 2.86 cm2 TR Velocity:313 cm/s PV Peak Velocity: 95.8 cm/s TR Gradient:39.19 mmHg PV Peak Gradient: 3.67 mmHg Estimated RAP:3 mmHg Estimated RVSP: 42.2 mmHg E' Septal Velocity: 7.07 cm/s E' Lateral Velocity: 8.38 cm/s E/Med E':12.44370 E/Lat E':10.358 Cardiac Anatomy Left Ventricle/Interventricular Septum The left ventricular size is normal. Left ventricular wall thickness is normal. The LV systolic function is hyperdynamic . The left ventricular ejection fraction is 65-70 %. There are no regional wall motion abnormalities. Normal diastolic function. Left Atrium/Interatrial Septum The left atrium is normal in size. Aortic Valve The aortic valve is trileaflet and normal in structure and function. There is no aortic stenosis or insufficiency. Mitral Valve The mitral valve is grossly normal in structure and function. There is trace mitral regurgitation. Aorta The aortic root is normal in size. There is dilation of the ascending aorta when indexed to BSA (3.7 cm) . Right Ventricle The right ventricle is normal in size and function. Right Atrium The right atrium is normal in size. Pulmonic Valve The pulmonic valve is poorly visualized. There is trace pulmonic regurgitation. Tricuspid Valve The tricuspid valve is grossly normal. There is mild tricuspid valve regurgitation. Pumonary Artery The pulmonary artery is not well visualized. The pulmonary artery systolic pressure estimation is 40-45 mmHg. Venous Structures The inferior vena cava appears normal. Inferior vena cava inspiratory collapse is normal . The central venous pressure estimation is 3 mmHg. Pericardium/Extracardiac There is no pericardial effusion. Summary The left ventricular size is normal. Left ventricular wall thickness is normal. The LV systolic function is hyperdynamic . The left ventricular ejection fraction is 65-70 %. There are no regional wall motion abnormalities. Normal diastolic function. The right ventricle is normal in size and function. The aortic root is normal in size. There is dilation of the ascending aorta when indexed to BSA (3.7 cm) . The pulmonary artery is not well visualized. The pulmonary artery systolic pressure estimation is 40-45 mmHg. Comparison No prior study available for comparison. Signature * Event Display: Echocardiogram - Complete Authored Date: [id number] Cardiology * Event Display: Cardiac Rhythm Strips Authored Date: Note * Anju Plasencia LPN: PERFORM Event Display: Discharge/Transfer Note Hospital Authored Date: [id number] Nursing Discharge Note Entered On: 01/30/2024 8:52 EDT Performed On: 01/30/2024 9:57 EDT by Anju Plasencia LPN Nursing Discharge Note 2 Discharge Time : 01/30/2024 9:57 EDT Discharge Level of Care at Discharge : Home/Intermediate/Foster Care Patient Left Unit Via : Wheelchair Patient Accompanied Off Unit with : Responsible adult DC Instructions Provided & Signed by Pt : Yes Patient Understands D/C Instructions : Yes Patient Instructions Discharge Signed : Yes Did Pt have Specialty Bed or Wound Vac : No Anju Plasencia LPN - 01/30/2024 10:42 EDT * Darien Hatch MD: PERFORM Event Display: Discharge/Transfer Note Hospital Authored Date: [id number] Patient: ??MARIELENA, FAINA ? Age:??68 Years?Sex:??Female?:??1955?? Patient Information Discharge Location: [facility] Primary Care Physician: Michel Griffiths Admit Date/Time: 01/29/24 07:21 Discharge Disposition Discharge Disposition: ?? Discharge Diagnosis Congestive heart failure (I50.9) Chest pain (R07.9) Lower extremity edema (R60.0) Carotid artery stenosis (I65.29) Hypertension (I10) Hyperlipidemia (E78.5) Chronic GERD (K21.9) _ Discharge Medications Albuterol/Ipratropium (albuterol-ipratropium 3 mg-0.5 mg/3 ml inhalation solution)?3?Milliliter?Neb?4 times a day?as needed?as needed for shortness of breath or wheezing Alendronate (alendronate 70 mg oral tablet)?1?tab(s)?70?Milligram?By Mouth?Every week Amlodipine (amLODIPine 5 mg oral tablet)?1?tab(s)?5?Milligram?By Mouth?Daily Atorvastatin (atorvastatin 40 mg oral tablet)?1?tab(s)?40?Milligram?By Mouth?Daily Cyclobenzaprine (cyclobenzaprine 5 mg oral tablet)?1?tab(s)?5?Milligram?By Mouth?3 times a day Lisinopril (lisinopril 20 mg oral tablet)?20?Milligram?1?tablet?By Mouth?Daily Metoprolol (Metoprolol Succinate ER 25 mg oral tablet, extended release)?1?tab(s)?25?Milligram?By Mouth?Daily Montelukast (montelukast 10 mg oral tablet)?10?Milligram?1?tablet?By Mouth?Daily Pantoprazole (pantoprazole 40 mg oral delayed release tablet)?1?tab(s)?40?Milligram?By Mouth?Daily Sucralfate (sucralfate 1 gm oral tablet)?1?gram?1?tablet?By Mouth?2 times a day ? Quality Measures Tobacco Use Treatment:? Objective Assessment and Plan Assessment:??68-year-old female with history of carotid artery stenosis,??followed by vascular in [place],??planning for outpatient endarterectomy,??hypertension, GERD, hyperlipidemia??admitted with chest pain, cough??and admitted for??further evaluation. ? Chest pain atypical and noncardiac patient has??had chronic swallowing difficulty in the past she has been evaluated??for??a swallow study and was told??that she has mild dysphagia due to muscle weakness. She denies any choking or aspiration. Patient also continues to smoke slightly??have underlying??COPD which also adds to her shortness ofbreath. Chronic cough due to chronic bronchitis and COPD. Ruled out for ACS troponins are mildly elevated??but still not significant. No EKG changes An echocardiogram was completed which showed preserved EF without any wall motion abnormality. ? Chronic GERD (K21.9):??Continue PPI ?? Hyperlipidemia (E78.5):??Continue statin ?? Hypertension (I10):??Continue amlodipine, lisinopril, metoprolol ?? Carotid artery stenosis (I65.29):??Follow-up outpatient with vascular??in [place] ?Statin Ordered:??Statin Ordered ?? Disposition, home ?? Discharge Planning:? Vital Signs?? Temperature: 97.6 DegF (01/30/24 04:25:00) Temperature Route: Oral (01/30/24::) Pulse Rate: 79 bpm (01/30/24:25:) Respiratory Rate: 18 br/min (01/30/24:25:) Systolic Blood Pressure:??149 mm Hg??High (01/30/24::) Diastolic Blood Pressure:??85 mm Hg??High (01/30/24::) Blood pressure sites: Arm, right (01/30/24::) Mean Arterial Pressure: 106 mm Hg (01/30/24:) Pulse Pressure: 64 mm Hg (01/30/24::) Oxygen Saturation:??91 %??Low (01/30/24::) Mode of Delivery (Oxygen): Room air (01/30/24::) Early Warning Score: 4 (01/30/24::52) ? . Physical Exam General: [Alert, in no acute cardiopulmonary distress.] Mental Status: [Oriented to person, place and time. Normal affect.] Head: [Normocephalic.] Eyes: [Pupils are equal, round and reactive to light. Extraocular muscles intact.] Ear, Nose and Throat: [Oropharynx clear, mucous membranes moist. Ears and nose without masses, lesions or deformities. Tympanic membranes clear bilaterally. Trachea midline.] Neck: [Supple, Full range of motion.] Respiratory: [Clear to auscultation and percussion. No wheezing, rales or rhonchi.] Cardiovascular: [Heart sounds normal. No thrills. Regular rate and rhythm, no murmurs, rubs or gallops.] Gastrointestinal: [Abdomen soft, non-tender, non-distended. Normal bowel sounds. No pulsatile mass.No hepatosplenomegaly.] Genitourinary: [No costovertebral angle tenderness.] Neurologic: [Cranial nerves II-XII grossly intact. No focal neurological deficits. Deep tendon reflexes +2 bilaterally. Flexor plantar response. Moves all extremities spontaneously. Sensation intact bilaterally.] Skin: [No rashes or lesions. No petechiae or purpura. No edema.] Musculoskeletal: [No cyanosis or clubbing. No gross deformities. Normal range of motion.] Lymphatics: [Palpation of neck reveals no swelling or tenderness of neck nodes. Palpation of groin reveals no swelling or tenderness of groin nodes.] Psychiatric: [Not anxious fully cooperative following commands.] Pending Results No Pending Results Follow-Up Appointments Added Follow Up ?Time Frame ?Comments Michel Griffiths?1 to 2 weeks Post Discharge Care Discharge ?01/30/24 8:26:00 EDT Home Health Face to Face ^HomeHealthFTF Results Discharge Labs BLOOD COUNT & DIFF WBC 6.9 k/mm3 ()?? 01/29/2024 10:20 RBC 3.90 m/mm3 (Low)?? 01/29/2024 10:20 Hgb 14.0 Gm/dL ()?? 01/29/2024 10:20 Hct 40.0 % ()?? 01/29/2024 10:20 MCV 102.6 femtoliters (High)?? 01/29/2024 10:20 MCH 35.9 pg (High)?? 01/29/2024 10:20 MCHC 35.0 g/dL ()?? 01/29/2024 10:20 Platelet Count 305 k/mm3 ()?? 01/29/2024 10:20 RDW-SD 59.3 femtoliters (High)?? 01/29/2024 10:20 MPV 8.9 femtoliters (Low)?? 01/29/2024 10:20 Nucleated RBC (Automated) 0.0 #/100 WBC'S ()?? 01/29/2024 10:20 Abs. NRBC 0.0 k/mm3 ()?? 01/29/2024 10:20 Abs. Neut 5.4 k/mm3 ()?? 01/29/2024 10:20 Abs. Lymph 1.0 k/mm3 ()?? 01/29/2024 10:20 Abs. Woodford 0.4 k/mm3 ()?? 01/29/2024 10:20 Abs. Eo 0.0 k/mm3 ()?? 01/29/2024 10:20 Abs. Baso 0.0 k/mm3 ()?? 01/29/2024 10:20 Neut % 78.2 % (High)?? 01/29/2024 10:20 Lymph % 13.8 % (Low)?? 01/29/2024 10:20 Woodford % 6.4 % ()?? 01/29/2024 10:20 Eos % 0.6 % ()?? 01/29/2024 10:20 Baso % 0.6 % ()?? 01/29/2024 10:20 Imm Gran 0.4 % ()?? 01/29/2024 10:20 Abs. Imm Gran 0.0 k/mm3 ()?? 01/29/2024 10:20 ?? CARDIAC Nt-Probnp 609 pg/mL (High)?? 01/29/2024 10:20 High Sensitivity Troponin (HSTnT) 21 ng/L (High)?? 01/29/2024 13:15 ?? CHEM GENERAL Sodium 139 mmol/L ()?? 01/29/2024 10:20 Potassium 4.9 mmol/L ()?? 01/29/2024 10:20 Chloride 99 mmol/L ()?? 01/29/2024 10:20 Bicarbonate Level 27 mmol/L ()?? 01/29/2024 10:20 Anion Gap 13 ()?? 01/29/2024 10:20 Glucose Level 104 mg/dL (High)?? 01/29/2024 10:20 BUN 10 mg/dL ()?? 01/29/2024 10:20 Creatinine-Blood 0.58 mg/dL ()?? 01/29/2024 10:20 Estimated GFR Creatinine 99 ML/MIN/1.73 M2 ()?? 01/29/2024 10:20 Calcium 9.5 mg/dL ()?? 01/29/2024 10:20 Protein, Total 6.9 Gm/dL ()?? 01/29/2024 10:20 Albumin 4.4 Gm/dL ()?? 01/29/2024 10:20 AG Ratio 1.8 ()?? 01/29/2024 10:20 Alkaline Phosphatase 115 units/L (High)?? 01/29/2024 10:20 AST (SGOT) 22 units/L ()?? 01/29/2024 10:20 ALT (SGPT) 8 units/L ()?? 01/29/2024 10:20 Bilirubin, Total 0.5 mg/dL ()?? 01/29/2024 10:20 ? URINE OTHER Est Creatinine Clearance 68.88 mL/min ()?? 01/29/2024 14:01 ? 25??minutes spent on discharge * Anju Plasencia LPN: PERFORM Event Display: Patient Education/Instruction Authored Date: [id number] Inpatient Adult Discharge Instructions. [address] [address] Name: FAINA PEGUERO : 1955?? Visit: 01/29/2024 07:21?? Current Date: 01/30/2024 08:48 ?? Account: [id number]?? Inpatient Adult Discharge Instructions We would like to thank you for allowing us to assist you with your healthcare needs. The following includes patient education materials and information regarding your injury/illness. Our entire staffstrives to provide an excellent experience for our patients and their families. PLEASE ENSURE YOU FOLLOW-UP PER THE INSTRUCTIONS BELOW! ?? YOUR OPINION IS IMPORTANT TO US! Please complete the survey you may receive by mail or email. Your feedback will be used to make improvements to the healthcare experiences of our patients and their families. Surveys are administered by [employer] ?? If further treatment with your primary care physician or another doctor is recommended, it is important for you to keep the appointment. Call your primary care physician or return to the Emergency Department immediately if your condition worsens, fails to improve, or new symptoms develop. If you need to find a doctor, you can call [facility] for a referral at [phone] or toll free at [phone]) or log in to [email or web address].. ?? [facility], in keeping with [facility] guidance, no longer requires face masks for staff, patientsor visitors in most situations. Similiar to time spent indoors at other locations, there is the chance that you were exposed to repiratory viruses during your time with us (such as flu or COVID-19). If you develop symptoms concerning for a viral respiratory infection, please seek testing (and treatment if indicated) from your medical provider or home test kit. ?? You can view and manage your care through the patient portal or by using a health care damian of your choosing. [facility] is a website that allows you to securely view your medical information including your hospital discharge summary, office visit summaries, medications and follow-up visits. You can also request appointments, renew medications, and request access to your medical information using a health care damian of your choosing, or just ask a question. You can enroll at [email or web address] or register during your next office visit. You have been discharged from [facility], Patient Care Unit: D3B??. If you have any questions regarding these instructions, including results of studies pending, afteryou leave, please call us and we will be happy to assist you 06/01. [facility] Your Care Team Attending Physician Darien Hatch MD?? Consulting Providers Darien Hatch MD?? Discharging Providers Darien Hatch MD Reason for Your Visit Chest pain workup?? Your Diagnosis Carotid artery stenosis Chest pain Chronic GERD General medical Hyperlipidemia Hypertension Lower extremity edema Tests Performed Below is a partial list of the tests performed during your hospitalization. You may have had other tests and procedures not included in this list. Please discuss all test results with your provider. CBC w/ Differential Comprehensive Metabolic Panel High??Sensitivity??Troponin T ProBNP XR Chest Portable B Type Natriuretic Peptide (ProBNP)?? CBC w/ Differential?? Comprehensive Metabolic Panel?? High??Sensitivity??Troponin T?? Chest Portable (XR Chest Portable)?? Primary Care Provider Michel Griffiths? Advance Directive Health Care Proxy on File No Patient refuses to discuss Discharge Vitals Temperature: 97.6 DegF Height: 162.5 cm Pulse Rate: 79 bpm Weight: 47 kg Respiratory Rate: 18 br/min Body Mass Index:??17.8 kg/m2??Low Systolic Blood Pressure:??149 mm Hg??High Body surface area: 1.46 Diastolic Blood Pressure:??85 mm Hg??High ?? Oxygen Saturation:??91 %??Low ?? Studies Pending All studies ordered during this hospital stay have been completed unless listed below. Please discuss all pending results with your provider listed above in these instructions. ?? No incomplete studies found?? What to do next Instructions From Your Doctor ?? Orders? 01/30/24 8:26:00 EDT?? You Need to Schedule the Following Appointments Follow Up with??Yousif HARKINS, Michel Chen When:??Within 1 to 2 weeks Discharge Medications FAINA PEGUERO :1955 Visit Date:01/29/2024 Medications: Please continue your medications until treatment is completed or stopped by your provider. Medications not listed below should be discontinued. Discuss any questions related to medications with your provider. What How Much When Instructions Next Dose Unchanged Albuterol/ Ipratropium (albuterol-ipratropium 3mg-0.5 mg/ 3 ml inhalation solution) 3 Milliliter Nebulized inhalation 4 times a day as needed for as needed for shortness of breath or wheezing as needed follow as prescribe Unchanged Alendronate (alendronate 70 mg oral tablet) 1 tab(s) Oral Every week follow as prescribe Unchanged Amlodipine (amLODIPine 5 mg oral tablet) 1 tab(s) Oral Daily 01/31/24 Unchanged Atorvastatin (atorvastatin 40 mg oral tablet) 1 tab(s) Oral Daily 01/31/24 Unchanged Cyclobenzaprine (cyclobenzaprine 5 mg oral tablet) 1 tab(s) Oral 3 times a day 01/31/24 Unchanged Lisinopril (lisinopril 20 mg oral tablet) 1 tab(s) Oral Daily 01/31/24 Unchanged Metoprolol (Metoprolol Succinate ER 25 mg oral tablet, extended release) 1 tab(s) Oral Daily 01/31/24 Unchanged Montelukast (montelukast 10 mg oral tablet) 1 tab(s) Oral Daily 01/31/24 Unchanged Pantoprazole (pantoprazole 40 mg oral delayed release tablet) 1 tab(s) Oral Daily 01/31/24 Unchanged Sucralfate (sucralfate 1 gm oral tablet) 1 tab(s) Oral Twice a day 01/30/24 evening ?? What How Much When Comments Stop Taking Omeprazole (omeprazole 40 mg oral enteric coated capsule) 1 capsule Oral Daily Prescription Given During Visit No new medications prescribed at time of discharge.?? Laboratory Results Below is a partial list of the most recent Laboratory test results done prior to this discharge. You may have had other tests and procedures not included in this list. Please discuss all test resultswith your provider. Est Creatinine Clearance - 68.88 mL/min (01/29/2024) CBC w/ Differential (01/29/2024) ???WBC - 6.9 k/mm3???RBC - 3.90 m/mm3???Hgb - 14.0 Gm/dL???Hct - 40.0 %???MCV - 102.6 femtoliters???MCH - 35.9 pg???MCHC - 35.0 g/dL???Platelet Count - 305 k/mm3???RDW-SD - 59.3 femtoliters???MPV - 8.9 femtoliters???Nucleated RBC (Automated) - 0.0 #/100 WBC'S???Abs. NRBC - 0.0 k/mm3???Abs. Neut - 5.4 k/mm3???Abs. Lymph - 1.0 k/mm3???Abs. Woodford - 0.4 k/mm3???Abs. Eo - 0.0 k/mm3???Abs. Baso - 0.0 k/mm3???Neut % - 78.2 %???Lymph % - 13.8 %???Woodford % - 6.4 %???Eos % - 0.6 %???Baso % - 0.6 %???Imm Gran - 0.4 %???Abs. Imm Gran - 0.0 k/mm3 Comprehensive Metabolic Panel (01/29/2024) ???Sodium - 139 mmol/L???Potassium - 4.9 mmol/L???Chloride - 99 mmol/L???Bicarbonate Level - 27 mmol/L???Anion Gap - 13???Glucose Level - 104 mg/dL???BUN - 10 mg/dL???Creatinine-Blood - 0.58 mg/dL???Estimated GFR Creatinine - 99 ML/MIN/1.73 M2???Calcium - 9.5 mg/dL???Protein, Total - 6.9 Gm/dL???Albumin - 4.4 Gm/dL???AG Ratio - 1.8???Alkaline Phosphatase - 115 units/L???AST (SGOT) - 22 units/L???ALT (SGPT) - 8 units/L???Bilirubin, Total - 0.5 mg/dL High??Sensitivity??Troponin T (01/29/2024) ???High Sensitivity Troponin (HSTnT) - 21 ng/L ProBNP (01/29/2024) ???Nt-Probnp - 609 pg/mL You will be contacted within 72 hours with your results. Allergies (NKA means No Known Allergies) morphine Problems Active Problems??(1) Underweight?? Education Materials Below is the list of Educational Leaflet Providered with your Discharge Instructions. Valuables and Belongings I fully understand and agree that [facility] accepts no responsibility for all my personal property including clothing, toilet articles, radios, jewelry, dentures, hearing aids, rings, money, or any other property that is in my possession or is brought to me after admission. I understand certain valuables may be placed in a hospital safe for a short period of time. I understand that the hospital is not liable for loss or damage due to accident, fire, or other natural occurrence while said property is in the safe. I accept full responsibility for any personal property that I keep with me, and will not hold the hospital responsible in case of loss or disappearance. I acknowledge that i have been encouraged to send valuables and belongings home. ?? Date for Pt to Sign Valuables/Belongings: 01/29/24 08:37:00 ?? Other Discharge Information ? Pulmonary Rehab Status?? Pulmonary Rehab Discharge Status?? Respiratory Rate: 18 br/min ? Common Emergency Awareness Tips IS IT A STROKE? Act FAST and Check for these signs: FACE Does the face look uneven? ARM Does one arm drift down? SPEECH Does their speech sound strange? TIME Call at any sign of stroke ?? Heart Attack Signs Chest discomfort: Most heart attacks involve discomfort in the center of the chest and lasts more than a few minutes, or goes away and comes back. It can feel like uncomfortable pressure, squeezing, fullness or pain. Discomfort in upper body: Symptoms can include pain or discomfort in one or both arms, back, neck, jaw or stomach. Shortness of breath: With or without discomfort. Other signs: Breaking out in a cold sweat, nausea, or lightheaded. Remember, MINUTES DO MATTER. If you experience any of these heart attack warning signs, call to get immediate medical attention! ?? Smoking can increase your chances of developing chronic health problems and can cause harmful effects to other family members in your house. If you smoke, you are strongly encouraged to quit. Please call [facility] at [phone] or [phone]) or log in to [email or web address] for referrals to smoking cessation programs. ?? 816 Suicide & Crisis Lifeline is available 06/01 if you or someone you know needs to find a reason to keep living. By calling 555 you'll be connected to a skilled, trained counselor at a crisis center in your area. INPATIENT DISCHARGE INSTRUCTIONS SIGNATURE PAGE FAINA PEGUERO Location:[facility] Registration Date and Time:01/29/2024 07:21 EDT Primary Care Physician: Michel Griffiths, Attending Physician: Darien Hatch MD, I FAINA PEGUERO, have received the above patient education materials/instructions and have verbalized understanding. If ambulance or transport services are being used I further acknowledge being given a choice of service. ?? If you need to contact me, please call me at this number: . Patient/Counseling Case Manager Name: Patient/Counseling Case Manager Signature: Relationship to Patient: Witness Name/Signature: Date: Patient Care team information Care Team Personnel Name: Gala Torrez RN Position: S RN Member Role: Primary Care Nurse Name: Michel Griffiths Position: Reference Physician Member Role: PCP Address: Address: [address] [place] [address]- Name: Anju Plasencia LPN Position: S RN Member Role: Primary Care Nurse Care Team Related Persons Name: KENROY MACK Address: [place] [address] Name: GUERO DISLA Address: [address] [address]
--- NOTE | 2024-02-23 07:20 | HO.ANESPROP2 ---
Documented by User: Chula Hanna NP 02/19/24 12:09 HPI - Anesthesia Eval Consult details Narrative: 68yo F for Right Carotid Endarterectomy, rescheduled to 02/23/24 Preop labs with low Na and elevated K. Meds adjusted by PCP and lytes normalized Cardiac optimized Pulmo optimized Continues to smoke. No recent illness. Seasonal allergies No CP/SOB with very minimal activity r/t back pain radiating to LE Cricopharyngeal achalasia - careful with eating , follows only with PCP Hx multiple cervical disc surgeries GERD: ppi controls COPD: rescue inhaler daily or QOD controls symptoms PMFSH Active Problems Active Problems: All Active Problems Lower extremity edema (Acute) Encounter for preoperative pulmonary examination (Acute) COPD (chronic obstructive pulmonary disease) (Acute) Elevated TSH (Acute) Cricopharyngeal achalasia (Acute) Leg pain (Acute) Bilateral carotid artery stenosis (Acute) Carotid stenosis, right (Acute) Carotid bruit (Acute) Dysphagia (Acute) COPD exacerbation (Acute) Hypoxia (Acute) Vertebrogenic low back pain (Acute) Spinal stenosis of lumbar region with neurogenic claudication (Acute) Age related osteoporosis (Acute) History of left hip hemiarthroplasty (Acute) Postural hypotension (Acute) Hypomagnesemia (Acute) Hyperkalemia (Acute) Hyponatremia (Acute) Postmenopausal (Acute) L1 vertebral fracture (Acute) Swelling of both lower extremities (Acute) Compression fracture of L1 lumbar vertebra (Acute) Elevated erythrocyte sedimentation rate (Acute) Elevated C-reactive protein (CRP) (Acute) Failure to thrive in adult (Acute) Chronic diarrhea (Acute) Elevated fasting blood sugar (Acute) Macrocytic anemia (Acute) Cachexia (Acute) Lumbar spondylosis (Acute) Sinus infection (Acute) Breast cancer screening (Acute) Colon cancer screening (Acute) Low weight (Acute) Tobacco dependence (Acute) Annual physical exam (Acute) Chronic sinusitis (Acute) Allergic asthma (Acute) Allergic rhinitis (Acute) Lumbar spine pain (Acute) HTN (hypertension) (Acute) Past Medical History Medical History Cachexia Nasal sinus congestion Cricopharyngeal achalasia Spinal stenosis COPD (chronic obstructive pulmonary disease) Acute respiratory failure with hypoxia Femoral neck fracture GERD (gastroesophageal reflux disease) JANAY (generalized anxiety disorder) IBS (irritable bowel syndrome) MDD (major depressive disorder) Pulmonary nodule Current smoker HTN (hypertension) Family History Family History Father Lung cancer Brain cancer Mother CVD (cardiovascular disease) Breast cancer Son In good health Brother In good health Family history of problems with anesthesia: No Surgical History Surgical History Hx of bilateral cataract extraction History of total left hip arthroplasty Hx of colonoscopy History of esophagogastroduodenoscopy (EGD) History of cervical discectomy History of Problems with Anesthesia: No Social History Social History Household Members: None Household Members Other:: self Housing: House Housing Other:: upper level of 2 family home-brother lives on lower level Are you a primary transitional care manager to a significant other at home: No Do you presently have visiting nurse or other home services: No Alcohol intake: current Alcohol intake frequency: a few times a month Patient Tobacco Use Status: Current everyday Tobacco user Tobacco use type: Cigarette Cigarette Packs Per Day: 1 Cigarettes Per Day: 2 Years Smoked: 38 e-Cigarette/Vaping Use: Never Used Use of substances other than those prescribed or required for medical reasons: No Have you been hit, kicked, punched, or otherwise hurt by someone within the past year? If so, by whom?: No Are you DNR?: No Advance Directives: Yes Advance Directives on File: Yes Advance Directives Date on File: 10/21/22 Recently lost weight without trying: No Nutrition Risks: No Nutritional Risk Patient : No service: No Current occupational status: retired Cognitive needs: No Hearing needs: No Vision needs: No Meds Allergies Allergy/AdvReac Type Severity Reaction Status Date / Time cat dander Allergy Intermediate Itchy Verified 02/23/24 06:31 Eyes/nasal congestion morphine Allergy Intermediate Flushing-fa Verified 02/23/24 06:31 cial Seasonal Allergies Allergy Intermediate Itchy Eyes Verified 02/23/24 06:31 Home Medications ?Medication ?Instructions ?Recorded ?Confirmed ?Last Taken ?Type multivitamin 1 tab PO QAM 10/21/22 02/23/24 02/22/24 History magnesium oxide 400 mg PO QAM 08/03/23 02/23/24 02/22/24 History aspirin 325 mg tablet 325 mg PO QAM 12/04/23 02/23/24 02/22/24 History methylcellulose (laxative) 500 mg 500 mg PO DAILY PRN Constipation 12/04/23 02/23/24 02/22/24 History tablet (Citrucel) montelukast 10 mg tablet 10 mg PO QAM 12/08/23 02/23/24 02/23/24 History Exam Height,Weight and Vital Signs: Height 5 ft 4 in Weight 42.6 kg Last Vital Signs Resp 20 12/08/23 13:21 BP 158/93 H 12/08/23 13:21 Pulse Ox 97 12/08/23 13:21 O2 Del Method Room Air 12/08/23 13:21 Pertinent Lab Results Pertinent Lab Results: Laboratory Tests 12/08/23 02/17/24 14:24 14:58 WBC 7.3 Hgb 14.7 D Hct 39.9 Plt Count 405 H PT 9.7 L INR 0.8 L APTT 37.0 H Sodium 136 Potassium 4.6 D Chloride 95 L Carbon Dioxide 28 BUN 12 Creatinine 0.91 Narrative Narrative: EKG 11/2023 normal sinus rhythm with poor R-wave progression most likely due to her body habitus CT angio neck 10/2023 IMPRESSION: 1. Atheromatous calcified plaque at both carotid bulbs, right more than left, as described above, with at least 90% diameter reduction stenosis of the right carotid bulb and less than 50% diameter reduction stenosis of the left carotid bulb by NASCET criteria. Limited assessment of the mid left and right cervical ICAs due to swallowing motion artifact. 2. Mild atheromatous changes of the aortic arch and brachiocephalic vessels without significant focal stenosis. 3. No significant focal stenoses or occlusions are identified intracranially. 4. Pulmonary findings, as described above, with two 4 mm noncalcified right upper lobe pulmonary nodules and probable biapical fibrotic changes. (If this patient is not at elevated risk (no history of smoking or underlying malignancy), then no further follow up for this is suggested on the basis of the current Fleischner criteria. If the patient is at elevated risk, then a follow up CT the chest would be recommended in 12 months.) 5. Cervical degenerative changes and postoperative changes, as described above. Possible central disc herniation at C4-C5 with possible ventral cord impingement. NM king perf SPECT rest & str 07/2023 Impression: 1. Myocardial perfusion imaging study shows normal myocardial perfusion. 2. Gated LVEF is > 70% during stress and rest. 3. Transient ischemic dilatation not present. EKG component of the test reported separately. ECHO 2023 Conclusions: - 1. Normal LV ejection fraction of 60 65% with upper limits of normal wall thickness with impaired relaxation filling pattern 2. Normal cardiac valvular Dopplers 3. Upper limits of normal RV systolic pressure 4. Upper limits of normal ascending aortic size 5. Trivial pericardial effusion Airway Mallampati Class: II TM Dist: >3cm Neck ROM: Limited Loose/Missing/Broken Teeth: No (permanent bridges and crowns) Heart: RRR Lungs: Dim, but clear Other: PAT eval 11/2023 Assessment and Plan Assessment Anesthesia Assessment: Anesthesia Plan Discussed, Smoking Cess. Discussed and PAT Visit Final Anesthetic Review Family History of Problems with Anesthesia: No History of Problems with Anesthesia: No Documented by User: Izabela Padilla DO 02/23/24 07:22 HPI - Anesthesia Eval Consult details Narrative: 68yo F for Right Carotid Endarterectomy, rescheduled to 02/23/24 Preop labs with low Na and elevated K. Meds adjusted by PCP and lytes normalized Cardiac optimized Pulmo optimized Continues to smoke. No recent illness. Seasonal allergies No CP/SOB with very minimal activity r/t back pain radiating to LE Cricopharyngeal achalasia - careful with eating , follows only with PCP Hx multiple cervical disc surgeries GERD: ppi controls COPD: rescue inhaler daily or QOD controls symptoms 02/23/24: SBP over 190s in pre-op. Patient took metoprolol as scheduled. Asymptomatic. States she is nervous; SBP at PCP office 160. Dr. Uriarte is aware and is okay to proceed; stated that BP control will be managed in ICU. [facility] Past Medical History Medical History Cachexia Nasal sinus congestion Cricopharyngeal achalasia Spinal stenosis COPD (chronic obstructive pulmonary disease) Acute respiratory failure with hypoxia Femoral neck fracture GERD (gastroesophageal reflux disease) JANAY (generalized anxiety disorder) IBS (irritable bowel syndrome) MDD (major depressive disorder) Pulmonary nodule Current smoker HTN (hypertension) Family History Family History Father Lung cancer Brain cancer Mother CVD (cardiovascular disease) Breast cancer Son In good health Brother In good health Family history of problems with anesthesia: No Surgical History Surgical History Hx of bilateral cataract extraction History of total left hip arthroplasty Hx of colonoscopy History of esophagogastroduodenoscopy (EGD) History of cervical discectomy History of Problems with Anesthesia: No Social History Social History Household Members: None Household Members Other:: self Housing: House Housing Other:: upper level of 2 family home-brother lives on lower level Are you a primary transitional care manager to a significant other at home: No Do you presently have visiting nurse or other home services: No Alcohol intake: current Alcohol intake frequency: a few times a month Patient Tobacco Use Status: Current everyday Tobacco user Tobacco use type: Cigarette Cigarette Packs Per Day: 1 Cigarettes Per Day: 2 Years Smoked: 38 e-Cigarette/Vaping Use: Never Used Use of substances other than those prescribed or required for medical reasons: No Have you been hit, kicked, punched, or otherwise hurt by someone within the past year? If so, by whom?: No Are you DNR?: No Advance Directives: Yes Advance Directives on File: Yes Advance Directives Date on File: 10/21/22 Recently lost weight without trying: No Nutrition Risks: No Nutritional Risk Patient : No service: No Current occupational status: retired Cognitive needs: No Hearing needs: No Vision needs: No Meds Allergies Allergy/AdvReac Type Severity Reaction Status Date / Time cat dander Allergy Intermediate Itchy Verified 02/23/24 06:31 Eyes/nasal congestion morphine Allergy Intermediate Flushing-fa Verified 02/23/24 06:31 cial Seasonal Allergies Allergy Intermediate Itchy Eyes Verified 02/23/24 06:31 Home Medications ?Medication ?Instructions ?Recorded ?Confirmed ?Last Taken ?Type multivitamin 1 tab PO QAM 10/21/22 02/23/24 02/22/24 History magnesium oxide 400 mg PO QAM 08/03/23 02/23/24 02/22/24 History aspirin 325 mg tablet 325 mg PO QAM 12/04/23 02/23/24 02/22/24 History methylcellulose (laxative) 500 mg 500 mg PO DAILY PRN Constipation 12/04/23 02/23/24 02/22/24 History tablet (Citrucel) montelukast 10 mg tablet 10 mg PO QAM 12/08/23 02/23/24 02/23/24 History Exam Exam Date and Time: 02/23/24 0710 Height,Weight and Vital Signs: Height 5 ft 4 in Weight 42.6 kg Last Vital Signs Resp 20 12/08/23 13:21 BP 158/93 H 12/08/23 13:21 Pulse Ox 97 12/08/23 13:21 O2 Del Method Room Air 12/08/23 13:21 Vital Signs Temperature 97.7 F 02/23/24 06:58 Pulse Rate 101 H 02/23/24 06:58 Respiratory Rate 14 02/23/24 06:58 Blood Pressure 193/115 H 02/23/24 06:58 Pulse Oximetry 96 02/23/24 06:58 Oxygen Delivery Method Room Air 02/23/24 06:58 Temperature 97.7 F 02/23/24 06:58 Pulse Rate 101 H 02/23/24 06:58 Respiratory Rate 14 02/23/24 06:58 Blood Pressure 193/115 H 02/23/24 06:58 Pulse Oximetry 96 02/23/24 06:58 Oxygen Delivery Method Room Air 02/23/24 06:58 Airway Mallampati Class: I TM Dist: >3cm Neck ROM: Limited Loose/Missing/Broken Teeth: Yes (cracked molar left upper jaw) Heart: S1S2 Lungs: Diminished bilaterally Assessment and Plan Assessment Anesthesia Assessment: Anesthesia Plan Discussed and Chart Reviewed Final Anesthetic Review Family History of Problems with Anesthesia: No History of Problems with Anesthesia: No NPO: Yes ASA Class: III Final Preanesthetic Review: No Changes in Pt Med Stat, Meds/Allgs Chart Reviewed, Consent Obtained/Reviewed and Anes Risks/Benef Reviewed Patient Risk: High Procedure Risk: High Anesthetic Plan Anesthetic Plan: GA and Agree w/ Assess. and Plan Disposition: Standard PACU
--- NOTE | 2024-02-23 07:21 | PC.NURSE ---
Pt states took Metoprolol, Albuterol inhaler, Pantoprazole an Montelukast this am. Multiple BP checks/small cuff/b/l arms taken. PBP 197/120. RN notified Dr. Padilla. Pt asymptomatic. Has a headache, but states has had for months. [place] dizziness/CP. Dr. Padilla at bedside contacted surgeon. Surgeon ok to proceed w/procedure, will monitor BP.
[2024-02-23] MEDS: Lactated Ringers 1,000 ML 100 ML IVCONT ×2 (07:24→12:04)
--- NOTE | 2024-02-23 07:51 | MHC.SHP ---
Pre-Procedural Eval Section A - 24 Hr Update-Section A only Date of Service: 02/23/24 The patient is an INPATIENT: No Changes since office visit: Yes Patient answered all questions The patient has been examined within 24 hours of the surgical procedure. The History & Physical has been completed within 30 days and I have reviewed it.: Yes Section B - Complete if H&P > 30 days Chief Complaint: Occlusion and stenosis of right carotid artery Allergies: Allergies Allergy/AdvReac Type Severity Reaction Status Date / Time cat dander Allergy Intermediate Itchy Verified 02/23/24 06:31 Eyes/nasal congestion morphine Allergy Intermediate Flushing-fa Verified 02/23/24 06:31 cial Seasonal Allergies Allergy Intermediate Itchy Eyes Verified 02/23/24 06:31 Plan I have reviewed the history and physical and performed a pertinent physical examination on my patient. No changes have occurred unless specified. Time Spent With Patient Time: Total time managing care of this patient today ____ minutes.
--- NOTE | 2024-02-23 10:33 | P.OP_ITS ---
Operative Note Operative Note Date of Service: 02/23/24 Narrative: Operative note by [facility] Preoperative diagnosis:1. Right Carotid stenosis Postoperative diagnosis: Same Procedure: Right Carotid endarterectomy with patch angioplasty Surgeon:Avtar Uriarte M.D. Auto Body Detailer: Dr. Goins Anesthesia: General Specimens: 1 Drains: None Estimated blood loss: 100 mL Indications: 69-year-old female who upon workup and CT scan was noted to have high-grade right carotid stenosis. It was estimated nearly 90%. She had been optimized and received risk stratification from a cardiac pulmonary and medical standpoint. She now presents for right carotid endarterectomy. The patient has signed the informed consent after reviewing risks, complications, benefits, and alternatives previously discussed with the patient. The patient was given the opportunity to ask any additional questions or voice any concerns. All questions were answered to the patient's satisfaction. Procedure in detail: Patient was taken to the operating room and placed in a supine position and prepped and draped in sterile manner with ChloraPrep. Longitudinal incision was made along the right anterior border of the sternocleidomastoid carried down through the subcutaneous fat and fascia. Hemostasis was obtained with electrocautery. The platysma muscle was then divided. The carotid sheath was identified in open. The vagus nerve, Ancef cervicalis, and hypoglossal nerves were identified and avoided. The common internal and external carotids were then freed from the surrounding tissue. At this point, 3000 units of heparin was administered and allowed to circulate for 5 minutes time to take effect. The internal, common, external carotids were clamped in that order. Once this was accomplished, we proceeded with the procedure. The carotid bulb was opened with an 11 blade and extended with Alves scissors through the very tight lesion into normal internal carotid artery. This was then extended down into the common carotid artery. We then placed a Melissa shunt. Then the plaque was sharply excised proximally and an eversion endarterectomy was performed successfully at the external. The plaque tapered nicely on to the internal and no tacking sutures were necessary. Heparinized saline was injected and no evidence of flapping or other debris was noted. The remaining carotid was examined, which showed no debris or flaps present. At this point a XenoSure patch was brought on to the field. This was anastomosed to the artery using a 6 0 Prolene in a running fashion. Once approximately 4/5 of the patch was sewn in the shunt was then removed. Prior to the last stitch the internal carotid was back bled through this. Heparinized saline was instilled into the carotid. The last stitch was tied. Hemostasis was excellent. The internal carotid was gently occluded while while of the external and internal were open in that order. Finally the internal was then opened and flow was restored to the entire system. Hemostasis was achieved with inter rupted 7-0 Prolene sutures. The wound was irrigated thoroughly. We then used Tisseel sealant. Deep layer was reapproximated using a 2-0 poly Sorb and finally the superficial layer with a 3-0 Polysorb. The skin was closed in a subcuticular manner. The patient awoke and neurologic status was checked and appeared to be intact. Sponge, needle and instrument counts were correct. The patient tolerated the procedure well. Returned to recovery with stable vitals. This note is constructed using voice recognition software. While every effort has been made to ensure accuracy, appliance servicer errors may have been included. Thank you for allowing me to participate in the care of your patient. Yours sincerely, Avtar Uriarte MD, FACS, R.P.V.I.
--- NOTE | 2024-02-23 12:16 | PM.CCHP ---
History of Present Illness Date of Service: 02/23/24 Chief Complaint: Status post elective right carotid endarterectomy 69-year-old lady with underlying history of hypertension, COPD, bilateral carotid stenosis now postoperative day 0 status post elective right carotid endarterectomy being monitored in the intensive care unit Review of Systems Constitutional: Constitutional: Denies daytime sleepiness, Denies excessive sweating, Denies fatigue, Denies fever(s), Denies lethargy, Denies malaise, Denies night sweats, Denies snoring and Denies weight loss Eyes: Eyes: Denies blurry vision and Denies itchy eyes ENT: Denies nasal congestion, Denies post nasal drip, Denies sinus pain, Denies sinus pressure and Denies other ( Thrush) Cardiovascular: Cardiovascular: Denies chest pain, Denies pedal edema, Denies dyspnea, Denies orthopnea and Denies paroxysmal nocturnal dyspnea Respiratory: Respiratory: Denies cough, Denies hemoptysis, Denies excessive phlegm production, Denies dyspnea, Denies snoring and Denies wheezing Gastrointestinal: Gastrointestinal: Denies abdominal pain and Denies heartburn Musculoskeletal: Musculoskeletal: Denies myalgias, Denies arthralgias and Denies joint swelling Integumentary/Breasts: Skin/Breast: Denies rash Neurologic: Denies memory loss and Denies seizure-like activity Psychiatric: Psychiatric: Denies abnormal sleep pattern, Denies anxiety and Denies memory loss Endocrine: Endocrine: Denies excessive sweating, Denies fatigue and Denies heat intolerance Hematologic/Lymphatic: Hematologic/Lymphatic: Denies easy bruising Allergic/Immunologic: Allergic/Immunologic: Denies itchy eyes, Denies seasonal rhinorrhea and Denies wheezing PMFSH Past Medical History Medical History Cachexia Nasal sinus congestion Cricopharyngeal achalasia Spinal stenosis COPD (chronic obstructive pulmonary disease) Acute respiratory failure with hypoxia Femoral neck fracture GERD (gastroesophageal reflux disease) JANAY (generalized anxiety disorder) IBS (irritable bowel syndrome) MDD (major depressive disorder) Pulmonary nodule Current smoker HTN (hypertension) Family History Family History Father Lung cancer Brain cancer Mother CVD (cardiovascular disease) Breast cancer Son In good health Brother In good health Surgical History Surgical History Hx of bilateral cataract extraction History of total left hip arthroplasty Hx of colonoscopy History of esophagogastroduodenoscopy (EGD) History of cervical discectomy Social History Social History Household Members: None Household Members Other:: self Housing: House Housing Other:: upper level of 2 family home-brother lives on lower level Are you a primary health care law specialist to a significant other at home: No Do you presently have visiting nurse or other home services: No Alcohol intake: current Alcohol intake frequency: a few times a month Patient Tobacco Use Status: Current everyday Tobacco user Tobacco use type: Cigarette Cigarette Packs Per Day: 1 Cigarettes Per Day: 2 Years Smoked: 38 e-Cigarette/Vaping Use: Never Used Use of substances other than those prescribed or required for medical reasons: No Have you been hit, kicked, punched, or otherwise hurt by someone within the past year? If so, by whom?: No Are you DNR?: No Advance Directives: Yes Advance Directives on File: Yes Advance Directives Date on File: 10/21/22 Recently lost weight without trying: No Nutrition Risks: No Nutritional Risk Patient : No service: No Current occupational status: retired Cognitive needs: No Hearing needs: No Vision needs: No Meds Allergies Allergy/AdvReac Type Severity Reaction Status Date / Time cat dander Allergy Intermediate Itchy Verified 02/23/24 06:31 Eyes/nasal congestion morphine Allergy Intermediate Flushing-fa Verified 02/23/24 06:31 cial Seasonal Allergies Allergy Intermediate Itchy Eyes Verified 02/23/24 06:31 Active Medications: Current Medications Acetaminophen (Acetaminophen 325 Mg Tablet) 650 mg PO Q6H PRN PRN Reason: Pain, Mild (Pain Scale 1-3), fever or headache Aspirin (Aspirin 325 Mg Tablet) 325 mg PO DAILY JODI Atorvastatin Calcium (Atorvastatin Calcium 40 Mg Tablet) 40 mg PO BEDTIME JODI Calcium Carbonate (Calcium Carbonate 750 Mg Tab.Chew) 750 mg PO Q4H PRN PRN Reason: Heartburn Lactated Ringer's (Lr) 1,000 mls @ 100 mls/hr IVCONT .Q10H JODI Last Admin: 02/23/24 12:04 Dose: 100 mls/hr Cefazolin Sodium/Dextrose (Ancef) 2 gm in 50 mls @ 100 mls/hr IV POSTOP@1400 ONE Stop: 02/23/24 14:29 Magnesium Hydroxide (Milk Of Magnesia 30 Ml Oral.Susp) 30 ml PO DAILY PRN PRN Reason: Constipation Magnesium Oxide (Magnesium Oxide 400 Mg Tablet) 400 mg PO DAILY [facility] Melatonin (Melatonin 3 Mg Tablet) 6 mg PO BEDTIME PRN PRN Reason: Insomnia Metoprolol Succinate (Metoprolol Succinate Er 50 Mg Tab.Er.24h) 50 mg PO DAILY [facility]; Protocol Montelukast Sodium (Montelukast Sodium 10 Mg Tablet) 10 mg PO DAILY [facility] Morphine Sulfate (Morphine Sulfate 2 Mg/Ml Cartridge) 2 mg IVPUSH Q4H PRN; Protocol PRN Reason: Pain, Severe (Pain Scale 7-10) Multivitamins/Vitamin C (Multivitamin Tablet) 1 tab PO DAILY [facility] Omeprazole (Omeprazole 20 Mg Capsule.Dr) 20 mg PO DAILY@0630 [facility] Oxycodone HCl (Oxycodone Hcl Immed Release 5 Mg Tablet) 5 mg PO Q4H PRN PRN Reason: Pain, Moderate(Pain Scale 4-6) Sodium Chloride (0.9 % Sodium Chloride Flush 3 Ml Syringe) 3 ml IVFLUSH QSHIFT [facility] Home Medications ?Medication ?Instructions ?Recorded ?Confirmed ?Last Taken ?Type multivitamin 1 tab PO DAILY 10/21/22 02/23/24 02/22/24 History magnesium oxide 400 mg PO DAILY 08/03/23 02/23/24 02/22/24 History aspirin 325 mg tablet 325 mg PO DAILY 12/04/23 02/23/24 02/22/24 History methylcellulose (laxative) 500 mg 500 mg PO DAILY PRN Constipation 12/04/23 02/23/24 02/22/24 History tablet (Citrucel) montelukast 10 mg tablet 10 mg PO DAILY 12/08/23 02/23/24 02/23/24 History alendronate 70 mg tablet 70 mg PO QWEEK 02/23/24 02/23/24 Unknown History amlodipine 5 mg tablet 5 mg PO DAILY 02/23/24 Unknown History ipratropium 0.5 mg-albuterol 3 mg 3 ml inhalation BID PRN wheezing 02/23/24 Unknown History (2.5 mg base)/3 mL nebulization soln lisinopril 20 mg tablet 20 mg PO DAILY 02/23/24 Unknown History pantoprazole 40 mg tablet,delayed 40 mg PO DAILY@0630 02/23/24 02/23/24 02/23/24 History release sodium polystyrene sulfonate 15 60 ml PO MOWEFR 02/23/24 02/22/24 History gram-sorbitol 20 gram/60 mL oral susp Physical Exam Vital Signs: Vital Signs: Last Vital Signs Temp 97.9 F 02/23/24 11:32 Pulse 80 02/23/24 12:00 Resp 16 02/23/24 12:00 BP 151/73 H 02/23/24 12:00 Pulse Ox 91 L 02/23/24 12:00 O2 Del Method Nasal Cannula 02/23/24 12:00 O2 Flow Rate 2 02/23/24 12:00 BMI result Body Mass Index 16.1 Const: General: no acute distress and alert Nutritional Appearance: not obese Orientation/consciousness: Other orientation findings ( oriented) HEENT: Head: Yes atraumatic Eyes: General: appearance normal, both eyes and all related structures Sclerae: sclerae normal EOM: EOMs intact bilaterally Neck: Neck: Yes supple and Yes other (Right carotid surgical access site with no hematoma) Lymphatic: no lymphadenopathy noted Resp: Effort & Inspection: normal respiratory effort and no use of accessory muscles Auscultation: clear to auscultation bilaterally Cardio: Rate: regular rate Rhythm: regular rhythm Heart sounds: no gallops, no murmurs and no rubs Skin: General skin exam: other ( warm) Extrem: General: No clubbing, No cyanosis and No edema Results Labs Labs: Laboratory Results - last 24 hr 02/23/24 06:31 Blood Type O Positive Antibody Screen NEGATIVE Assessment and Plan (1) Status post carotid endarterectomy: Status: Acute (2) COPD (chronic obstructive pulmonary disease): Status: Acute (3) HTN (hypertension): Qualifiers: Hypertension type: essential hypertension Qualified Code(s): I10 - Essential (primary) hypertension Status: Acute Plan Assessment: 69-year-old lady postoperative day 0 status post elective right carotid endarterectomy being monitored in the intensive care unit. Plan: Neuro: No acute issues. Cardiac: Postoperative day 0 after elective right carotid endarterectomy. Vascular surgery service care appreciated. Maintain systolic blood pressure under 160. Underlying history of hypertension. Pulmonary: No acute issues. Underlying history of COPD. Renal: No acute issues. Endo: No acute issues. GI: No acute issues. ID: No acute issues Heme/Onc: No acute issues. Psych: No acute issues. Miscellaneous: No acute issues. Prophylaxis: Per vascular surgery Diet: Regular
[2024-02-23] MEDS: Acetaminophen 325 MG TABLET 650 MG PO (12:28)
[2024-02-23] MEDS: Omeprazole 20 MG CAPSULE.DR PO (12:29)
[2024-02-23] MEDS: Aspirin 325 MG TABLET PO (12:29)
[2024-02-23] MEDS: Montelukast Sodium 10 MG TABLET PO (12:29)
[2024-02-23] MEDS: Magnesium Oxide 400 MG TABLET PO (12:29)
[2024-02-23] MEDS: Multivitamin TABLET 1 TAB PO (12:29)
[2024-02-23] MEDS: ceFAZolin Sodium/Dextrose,Iso 2 GM/50 ML PIGGYBACK IV (15:01)
[2024-02-23] MEDS: 0.9 % Sodium Chloride Flush 3 ML SYRINGE IVFLUSH ×2 (15:02→19:08)
--- NOTE | 2024-02-23 16:27 | PHA.MEDREC ---
Addendum entered by Alfonzo Rodriguez RPh 02/23/24 16:58: Med rec was reviewed by [facility]. Original Note: Pharmacy Consult ? Medication Reconciliation Pharmacy has completed the medication reconciliation. Spoke to patient to confirm med list. Patient was very sweet and was able to confirm all her medications. Patient states she is no longer on Amlodipine 5 mg, Atorvastatin 40 mg, Methylcellulose 500 mg, Lisinopril 20 mg. Patient states she takes Metoprolol succ 50 mg daily, Alendronate 70 mg every Friday, how ever she forgets to take her medications some times, last taken was 02/09/24. SPS is 60 ml every Friday, Friday, and Friday, last taken was Friday02/20/24.
[2024-02-23] MEDS: Atorvastatin Calcium 40 MG TABLET PO (19:07)
[2024-02-23] MEDS: oxyCODONE HCl Immed Release 5 MG TABLET PO (19:07)
[2024-02-23] MEDS: HYDROmorphone HCl 1 MG/ML SYRINGE IVPUSH (22:16)
[2024-02-24] VITALS (25 sets, daily range): BP systolic 113–154; BP diastolic 54–83; PULSE 70–95; RESP 9–25; TEMP 36.1–36.6; O2SAT 89–96; BMI 16.5; BMI 19.4
--- NOTE | 2024-02-24 03:36 | PC.NURSE ---
CARE ASSUMED 7PM...ALERT..ORIENTED X3..SPEECH CLEAR...ZHU WITH GOOD STRENGTH...RIGHT NECK DRESSING DRY/INTACT..NO SWELLING...DRINKING FLUIDS W/O DIFFICULTY..LEFT RADIAL A-LINE CORRELATES WITH LEFT UPPER ARM NBP CUFF...QUARLES WITH 20-25 CC/HR...IV FLUIDS PREVIOUSLY D/C'D PER REPORT..ICU PROVIDER AWARE OF MARGINAL OUTPUT...C/O CHRONIC BACK PAIN FROM PAST BACK/SPINE SURGERIES...PRN OXYCODONE GIVEN 19:07...STATED PAIN REMAINED BUT IMPROVED AND ABLE TO NAP...C/O RECURRANCE OF PAIN LATER..PATIENT REPORTED ALLERGIC TO MORPHINE..PROVIDER UPDATED..PRN MORPHINE D/C'D AND PRN DILAUDID ORDERED AND GIVEN...NO ADVERSE EFFECTS FROM DILAUDID..REPORTED IMPROVED BACK DISCOMFORT AND ABLE TO NAP INTERMITTANTLY OVERNIGHT...REMAINS WITH MARGINAL URINE OUTPUT OF 20-25 CC/HR..BP STABLE..RES[IRATIONS EASY
[2024-02-24 05:12] LABS: MANUAL DIFF FLAG NO
[2024-02-24 05:15] LABS: Basophils Percent Auto 0.2 % (0-2); Hematocrit 33.2 % (37.0-47.0); Hemoglobin 11.1 g/dl (12.0-16.0); Imm Gran Abs Auto 0.04 X10*3/uL (0.00-0.03); Imm Gran Pct Auto 0.4 % (0.0-0.4); Lymphocytes Absolute Auto 0.6 X10*3/uL (1.2-4.9); Lymphocytes Percent Auto 5.3 % (20-40); Mean Corpuscular HGB Conc 33.4 g/dl (31.0-35.0); Mean Corpuscular Hemoglobin 35.7 pg (27.0-33.0); Mean Corpuscular Volume 106.8 fL (80.0-98.0); Mean Platelet Volume 9.1 fL (9.4-12.3); Monocytes Absolute Auto 1.1 X10*3/uL (0.1-1.2); Monocytes Percent Auto 10.4 % (2-11); Neutrophils Percent Auto 83.7 % (45-73); Platelet Count 178 X10*3/uL (160-400); Red Blood Count 3.11 X10*6/uL (4.20-5.50); Red Cell Distribution Width 13.7 % (11.0-16.0); White Blood Count 10.7 X10*3/uL (4.8-10.8)
[2024-02-24] MEDS: Omeprazole 20 MG CAPSULE.DR PO (05:25)
[2024-02-24 05:28] LABS: Albumin Level 3.1 g/dL (3.5-5.0); Anion Gap 10 (12-20); Blood Urea Nitrogen 18 mg/dL (9-16); Calcium 8.7 mg/dL (8.4-10.2); Carbon Dioxide 29 mmol/L (22-29); Chloride 99 mmol/L (96-108); Creatinine Clr Calc Pharmacy 44.5; Estimated Glomerular Filt Rate > 60; Glucose Random 135 mg/dL (60-115); Magnesium 1.7 mg/dL (1.6-2.6); Phosphorus 4.3 mg/dL (2.7-4.5); Potassium 4.4 mmol/L (3.3-5.1); Sodium 134 mmol/L (135-145)
[2024-02-24] MEDS: Metoprolol Succinate ER 50 MG TAB.ER.24H PO (08:32)
[2024-02-24] MEDS: Magnesium Oxide 400 MG TABLET PO (08:33)
[2024-02-24] MEDS: Multivitamin TABLET 1 TAB PO (08:33)
[2024-02-24] MEDS: 0.9 % Sodium Chloride Flush 3 ML SYRINGE IVFLUSH ×2 (08:34→15:58)
[2024-02-24] MEDS: Montelukast Sodium 10 MG TABLET PO (08:34)
[2024-02-24] MEDS: Aspirin 325 MG TABLET PO (08:34)
[2024-02-24] MEDS: Albumin Human 25 % 100 ML IV ×2 (08:38→15:57)
--- NOTE | 2024-02-24 09:00 | HO.POSTANES ---
Post Anesthesia Evaluation Post Anesthesia Evaluation Date of Service: 02/24/24 Vital Signs: Vital Signs Temp Pulse Resp BP Pulse Ox O2 Del Method O2 Flow Rate 02/24/24 08:00 97.6 F 95 25 H 136/72 94 Nasal Cannula 1.5 02/24/24 07:22 94 Nasal Cannula 02/24/24 07:00 76 14 132/62 96 Nasal Cannula 2 02/24/24 06:00 75 10 L 124/61 93 Nasal Cannula 2 02/24/24 05:00 78 13 147/71 H 93 Nasal Cannula 2 02/24/24 04:00 77 11 L 132/65 92 Nasal Cannula 2 02/24/24 03:00 97.7 F 76 18 127/61 94 Nasal Cannula 3 02/24/24 02:00 78 18 138/70 93 Nasal Cannula 3 02/24/24 02:00 76 9 L 127/65 95 Nasal Cannula 2 02/24/24 01:00 84 19 154/79 H 93 Nasal Cannula 2 02/24/24 00:00 97.0 F 79 9 L 137/69 92 Nasal Cannula 2 02/23/24 23:12 78 16 130/64 02/23/24 23:00 97.0 F 78 12 127/61 93 Nasal Cannula 2 02/23/24 22:00 78 14 138/65 96 Nasal Cannula 2 Anesthesia: General Endotracheal-GETA Mental Status: Awake Pain Control: Satisfactory Nausea/Vomiting: None Hydration: Adequate Anesthesia-Related Issues: No Anes. Related Issues
--- NOTE | 2024-02-24 10:21 | MHC.CLN ---
SPOKE WITH PT PT WITHOUT ANY RECENT CHANGES IN WT UBW 95# PT REPORTS WT ALWAYS ON THIN SIDE APPETITE IS GOOD C/O IBS BUT STATED I'VE BEEN DEALING WITH THIS FOR MANY YEARS PT DOES NOT APPEAR MALNOURISHED WT TAKEN BY THIS CARPET SEWER 51.3KG; BMI 19.4 WNL CONTINUE CURRENT CARE PLAN PT WITH LOW NUTRITION RISK
[2024-02-24] MEDS: HYDROmorphone HCl 1 MG/ML SYRINGE IVPUSH ×2 (11:13→19:38)
--- NOTE | 2024-02-24 13:12 | P.DS_ITS ---
DS: Providers Provider Date of Service: 02/24/24 Date of admission: 02/23/24 06:33 Primary care physician: Michel Dodd PA-C DS: Diagnosis Discharge Diagnosis (1) Status post carotid endarterectomy: Status: Acute (2) COPD (chronic obstructive pulmonary disease): Status: Acute (3) HTN (hypertension): Status: Acute DS: Summary Hospital Course Hospital Course: Patient underwent elective right carotid endarterectomy on 02/23/2024. No postoperative issues. Reports that doing fairly well. Overnight was observed in the ICU. Postop day 1 tolerating a regular diet neurologically intact. Status at Discharge Functional status at discharge: independent ambulation Time Attestation Discharge Coordination Time (in mins): Thirty-five Quality: Safe Use of Opioids Does Pt have an Active Cancer Diagnosis on the Problem List?: No Quality: Stroke Does the patient have a stroke diagnosis?: No Physical Exam Vital Signs: Vital Signs: Last Vital Signs Temp 97.6 F 02/24/24 08:00 Pulse 74 02/24/24 12:00 Resp 12 02/24/24 12:00 BP 116/61 02/24/24 12:00 Pulse Ox 89 L 02/24/24 12:00 O2 Del Method Nasal Cannula 02/24/24 12:00 O2 Flow Rate 0.5 02/24/24 12:00 Oxygen Flow Rate 3 02/24/24 07:22 BMI result Body Mass Index 19.4 Const: General: cooperative, healthy appearing and no acute distress Orientation/consciousness: oriented to person, oriented to place and oriented to time HEENT: Head: Yes normal to inspection Neck: Carotids: no bruits Chest: Chest palpation & inspection: normal inspection of the chest Resp: Effort & Inspection: normal respiratory effort and able to speak in complete sentences Auscultation: clear to auscultation bilaterally Cardio: Rate: regular rate Heart sounds: S1 normal heart sound present and S2 normal heart sound present GI: Inspection: Yes normal to inspection Skin: Other: Neck incision healing General skin exam: no rashes or lesions noted Wounds: no wounds Neuro: General: oriented to person, oriented to place, oriented to time and CN's II-XI intact bilaterally Extrem: General: Yes normal to inspection, Yes full ROM and Yes no clubbing, cyanosis or edema Psych: Appearance: grossly normal and well kempt Speech and movement: Normal speech and movement present Affect: normal affect DS: Data Data Completed and Pending Completed studies during hospitalization [Text1]: Procedures Replacement of Left Hip Joint with Synthetic Substitute, Cemented, Open Approach (02/20/23) Pending studies at discharge: Pending at discharge 02/23/24 09:14 Surgical [PTH] Routine Labs on day of discharge: Laboratory Results - last 24 hr 02/24/24 05:03 WBC 10.7 RBC 3.11 L D Hgb 11.1 L D Hct 33.2 L MCV 106.8 H MCH 35.7 H MCHC 33.4 RDW 13.7 Plt Count 178 D MPV 9.1 L Immature Gran % (Auto) 0.4 Neut % (Auto) 83.7 H Lymph % (Auto) 5.3 L [place] % (Auto) 10.4 Eos % (Auto) 0.0 Baso % (Auto) 0.2 Lymph # (Auto) 0.6 L [place] # (Auto) 1.1 Eos # (Auto) 0.0 Baso # (Auto) 0.0 Abs Immat Gran (auto) 0.04 H Absolute Neuts (auto) 9.0 H Absolute Nucleated RBC 0.000 Nucleated RBC % (auto) 0.0 Sodium 134 L Potassium 4.4 Chloride 99 Carbon Dioxide 29 Anion Gap 10 L BUN 18 H Creatinine 0.82 Estim Creat Clear Calc 44.5 Estimated GFR > 60 Random Glucose 135 H Calcium 8.7 D Phosphorus 4.3 Magnesium 1.7 Albumin 3.1 L Discharge Plan Discharge Anticipated Discharge Date/Time: 02/24/24 13:09 Patient Disposition: Home, Self-Care Discharge Diagnosis: Status post right carotid endarterectomy Referrals: Michel Dodd PA-C [Primary Care Provider] - 1 Week Discharge Medications: Continued (DME) back brace Misc See Rx Instructions .Route Qty: 1 0RF Rx Instructions: As directed albuterol sulfate 2.5 mg /3 mL (0.083 %) solution for nebulization 2.5 mg inhalation Q6H PRN (Reason: shortness of breath or wheezing) 30 Days Qty: 180 1RF albuterol sulfate 90 mcg/actuation HFA aerosol inhaler 1 puff inhalation QID PRN (Reason: Shortness Of Breath) Qty: 18 3RF cyclobenzaprine 5 mg tablet 5 mg PO BID PRN (Reason: muscle spasm) 15 Days Qty: 30 2RF acetaminophen 325 mg Tablet 650 mg PO Q6H PRN (Reason: Pain, Mild (Pain Scale 1-3)) 30 Days Qty: 420 0RF multivitamin Tablet 1 tab PO DAILY magnesium oxide 400 mg magnesium Tablet 400 mg PO DAILY montelukast 10 mg tablet 10 mg PO DAILY alendronate 70 mg tablet 70 mg PO MO pantoprazole 40 mg tablet,delayed release (DR/EC) 40 mg PO DAILY@0630 Rx Instructions: take one tablet half an hour before breakfast sodium polystyrene sulf-sorbtl 15-20 gram/60 mL suspension 60 ml PO MOWEFR ipratropium-albuterol 0.5 mg-3 mg(2.5 mg base)/3 mL solution for nebulization 3 ml inhalation BID PRN (Reason: wheezing) (DME) blood pressure test kit-small Kit See Rx Instructions .Route Qty: 1 0RF Rx Instructions: As directed metoprolol succinate 50 mg tablet extended release 24 hr 50 mg PO DAILY 30 Days Qty: 30 1RF aspirin 325 mg tablet 325 mg PO DAILY PRN (Reason: Pain) Discharge Orders: Discharge Order (Routine); Ordered 02/24/24 Ordered By: Avtar Uriarte Diet: Advance to usual diet Activity on Discharge: As tolerated Stand Alone Forms: Patient Portal Discharge page Print Language: Qatari Activity Restrictions/Additional Instructions: Skin tape was used and you may shower as early as tomorrow. Take it easy today and you may ambulate around the house. Within 24 hours you can resume normal activity You may climb a flight of stairs as tolerated Do not lift anything heavier than a gallon of milk See Dr. Uriarte in follow-up in approximately 2 weeks time. You should already have an appointment if not please call my office at [phone] Please use Tylenol as needed for pain If you notice excessive bleeding from the neck please immediately call my office or return to the emergency room. Care Plan Goals: Carotid surveillance Health Concerns: Carotid stenosis Plan of Treatment: Carotid surveillance Assessment: Status post right carotid endarterectomy
--- NOTE | 2024-02-24 13:17 | MHC.CM.PN ---
Met w/pt to discuss d/c planning needs: Pt resides in duplex on second floor w/her brother on the 1st floor. She has a walker and no services. Family assists w/transportation. HCP on file and verified: IMM given: no additional needs identified. Sister in law with transport pt to home today
[2024-02-24] MEDS: Atorvastatin Calcium 40 MG TABLET PO (21:58)
[2024-02-25] VITALS (11 sets, daily range): BP systolic 106–132; BP diastolic 62–75; PULSE 73–90; RESP 13–18; TEMP 36.1–36.2; O2SAT 81–96; BMI 16.3
[2024-02-25] MEDS: 0.9 % Sodium Chloride Flush 3 ML SYRINGE IVFLUSH
[2024-02-25] MEDS: Acetaminophen 325 MG TABLET 650 MG PO (03:26)
[2024-02-25] MEDS: oxyCODONE HCl Immed Release 5 MG TABLET PO ×2 (03:26→08:32)
[2024-02-25 05:51] LABS: MANUAL DIFF FLAG NO; Venous Blood Gas Refer to POC result
[2024-02-25 05:56] LABS: Basophils Percent Auto 0.1 % (0-2); Eosinophils Percent Auto 0.5 % (0-4); Hematocrit 31.4 % (37.0-47.0); Hemoglobin 10.1 g/dl (12.0-16.0); Imm Gran Abs Auto 0.03 X10*3/uL (0.00-0.03); Imm Gran Pct Auto 0.4 % (0.0-0.4); Lymphocytes Percent Auto 13.6 % (20-40); Mean Corpuscular HGB Conc 32.2 g/dl (31.0-35.0); Mean Corpuscular Hemoglobin 35.6 pg (27.0-33.0); Mean Platelet Volume 9.1 fL (9.4-12.3); Monocytes Absolute Auto 0.9 X10*3/uL (0.1-1.2); Monocytes Percent Auto 11.7 % (2-11); Neutrophils Absolute Auto 5.5 x10*3/uL (2.0-8.3); Neutrophils Percent Auto 73.7 % (45-73); Platelet Count 160 X10*3/uL (160-400); Red Blood Count 2.84 X10*6/uL (4.20-5.50); Red Cell Distribution Width 13.9 % (11.0-16.0); White Blood Count 7.4 X10*3/uL (4.8-10.8)
[2024-02-25 05:56] LABS: VBG Base Excess 7.7 mmol/L; VBG HCO3 33 mmol/L (22-26); VBG pCO2 50 mmHg; VBG pH 7.42 (7.32-7.43); VBG pO2 41 mmHg
[2024-02-25 06:00] LABS: Mean Corpuscular Volume 110.6 fL (80.0-98.0)
[2024-02-25 06:14] LABS: Anion Gap 13 (12-20); Blood Urea Nitrogen 19 mg/dL (9-16); Calcium 8.7 mg/dL (8.4-10.2); Carbon Dioxide 28 mmol/L (22-29); Chloride 97 mmol/L (96-108); Creatinine Clr Calc Pharmacy 48.3; Estimated Glomerular Filt Rate > 60; Glucose Random 112 mg/dL (60-115); Magnesium 1.8 mg/dL (1.6-2.6); Potassium 4.2 mmol/L (3.3-5.1); Sodium 134 mmol/L (135-145)
[2024-02-25] MEDS: Omeprazole 20 MG CAPSULE.DR PO (06:26)
[2024-02-25] MEDS: Magnesium Oxide 400 MG TABLET PO (08:32)
[2024-02-25] MEDS: Aspirin 325 MG TABLET PO (08:32)
[2024-02-25] MEDS: Metoprolol Succinate ER 50 MG TAB.ER.24H PO (08:32)
[2024-02-25] MEDS: Multivitamin TABLET 1 TAB PO (08:32)
[2024-02-25] MEDS: Montelukast Sodium 10 MG TABLET PO (08:32)
--- NOTE | 2024-02-25 09:54 | W.MHC.F2F ---
Service Date Service Date: 02/25/24 Encounter Date of encounter: 02/25/24 Reasons for Services Signs and symptoms assessed: Breathing and postsurgical check Reason for jail: postoperative assessment and/or care and medication management Homebound: Leaving the home is medically contraindicated at this time without the asist of a device and/or another person due th the listed conditions above and below. Reason homebound: unsteady gait / fall risk Certification: Based on the above findings, I certify that this patient is confined to the home and needs intermittent jail care, physical therapy and/or speech therapy, or continues to need occupational therapy. The patient is under my care, and I have initiated the establishment of the plan of care. The patient will be followed by a physician who will periodically review the plan of care. Time Spent With Patient Time: Total time managing care of this patient today _35___ minutes.
--- NOTE | 2024-02-25 09:56 | PM.EVENT ---
Event Note Date of Service: 02/25/24 Event Note: Patient seen and examined. Was held overnight due to O2 sats. Doing much better this morning tolerating regular diet. Stable for discharge. Will require home O2. Time Spent With Patient Time: Total time managing care of this patient today ____ minutes.
--- NOTE | 2024-02-25 10:03 | PC.NURSE ---
Dr Uriarte assessed pt at bedside this AM. pt desat to 70% on room air. throughout the morning O2 was ranging 2-4L. RT performed O2 eval and found pt requires O2 while at home. pt stated she does not want to bring home O2 and does not want to be on it, continued to refused post education. informed.
--- NOTE | 2024-02-25 11:14 | PC.RT ---
Pt had O2 evaluation this am per MD order. Pt found torequire 2 lpm O2 via n/c at rest to keep spo2 >88% and 4 lpm n/c during ambulation/exertion. Order signed by Dr. Juan. Tanks brought to pt room for d/c home, pt stated she did not want them. MD into speak with pt on hazards/complications of hypoxia, pt responed as same, does not want home O2. Adria notified.
== END 2024-02-25 11:54 | disposition home or self-care (01) | DRG 39 ==
LOC: HO.SSSA 06:34 → HO.ICU 11:24
PROVIDERS: Registered Nurse Community Health; Admitting Provider Surgery Vascular Surgery; PCP Physician Assistant; Visit Provider Internal Medicine Pulmonary Disease
PROC: 03CH0ZZ Extirpation of Matter from Right Common Carotid Artery, Open Approach (ICD-10-PCS; CPT 35301; principal; 2024-02-23 07:30)
DX: I65.21 Occlusion and stenosis of right carotid artery (principal); J44.9 Chronic obstructive pulmonary disease, unspecified; F17.210 Nicotine dependence, cigarettes, uncomplicated; I10 Essential (primary) hypertension; Z71.6 Tobacco abuse counseling; Z79.82 Long term (current) use of aspirin; Z79.899 Other long term (current) drug therapy
CPT/HCPCS: 36415; 80048; 82040; 82803; 83735; 84100; 85025; 86850; 86900; 86901; 88304; 88311; A4649; C1758; C1768; C9250; J0690; J1100; J1170; J1644; J2250; J2305; J2371; J2405; J2598; J2704; J2795; J3010; J7120; P9047

== ENCOUNTER → 2024-02-23 06:33 | Outpatient (BNV) | payer MEDICARE, SELFPAY | PROVIDERS: Admitting Provider Surgery Vascular Surgery; PCP Physician Assistant; Visit Provider Internal Medicine Pulmonary Disease | DX: I65.21 Occlusion and stenosis of right carotid artery (principal); J44.9 Chronic obstructive pulmonary disease, unspecified; I10 Essential (primary) hypertension | CPT/HCPCS: 99223 ==

== ENCOUNTER → 2024-02-23 06:33 | Outpatient (BNV) | payer MEDICARE, SELFPAY | PROVIDERS: Admitting Provider Surgery Vascular Surgery; PCP Physician Assistant; Visit Provider Surgery Vascular Surgery | DX: J44.9 Chronic obstructive pulmonary disease, unspecified (principal); I10 Essential (primary) hypertension; Z98.890 Other specified postprocedural states | CPT/HCPCS: 35301; 99024; 99499; G0180 ==

== ENCOUNTER 2024-03-04 09:18 | Outpatient (AMB) | payer MEDICARE, SELFPAY ==
--- NOTE | 2024-03-04 09:19 | A.OFFPC_ITS ---
Intake Visit Reasons: TCM STENOSIS OF RIGHT CAROTID ARTERY Intake Note: Telehealth follow-up with the patient for post-operative care following a right carotid endarterectomy with patch angioplasty. 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: Not Required per policy Accompanied by: Self / Same As Patient Allergies cat dander Allergy (Intermediate, Verified 03/04/24 09:40) Itchy Eyes/nasal congestion morphine Allergy (Intermediate, Verified 03/04/24 09:40) Flushing-facial Seasonal Allergies Allergy (Intermediate, Verified 03/04/24 09:40) Itchy Eyes Medication List - Last Reconciled 03/04/24 by Michel Dodd PA-C acetaminophen 650 mg (2 x 325 mg) PO Q6H PRN 30 days albuterol sulfate 2.5 mg (3 mL) inhalation Q6H PRN 30 days albuterol sulfate 90 mcg/actuation 1 puff inhalation QID PRN alendronate 70 mg PO MO aspirin 325 mg PO DAILY PRN back brace As directed blood pressure test kit-small As directed cyclobenzaprine 5 mg PO BID PRN 15 days ipratropium-albuterol 0.5 mg-3 mg(2.5 mg base)/3 mL 3 mL inhalation BID PRN magnesium oxide 400 mg PO DAILY metoprolol succinate ER 50 mg PO DAILY 30 days metoprolol succinate ER 25 mg PO DAILY montelukast 10 mg PO DAILY multivitamin 1 tab PO DAILY pantoprazole 40 mg PO DAILY@0630 sodium polystyrene sulf-sorbtl 15-20 gram/60 mL 60 mL PO MOWEFR Tobacco use date assessed: 06/30/23 Fall risk assessment: No Falls in past year Last assessed Fall Risk: 03/04/24 Dental Screening Dental Screen Date: 06/30/23 HPI TCM STENOSIS OF RIGHT CAROTID ARTERY HPI Details Patient is a 69-year-old female being evaluated today via telephone. Recently underwent a carotid endarterectomy and did well postoperatively. She had an episode of head drum banging headache when she got home from the hospital though has resolved. Did have hypoxemia after her surgery and discussed having O2 at home though she declines . Has upcoming appt with vascular surgeon. Otherwise she reports she is doing well postoperatively, still feels just about the same and has occasional dizziness. TCM TCM Information Date of Discharge 02/25/24 Discharged From [facility] Interactive Contact Date (Reference documentation from this date) 02/26/24 [facility] Medical History Cachexia Nasal sinus congestion Cricopharyngeal achalasia Spinal stenosis COPD (chronic obstructive pulmonary disease) Acute respiratory failure with hypoxia Femoral neck fracture GERD (gastroesophageal reflux disease) JANAY (generalized anxiety disorder) IBS (irritable bowel syndrome) MDD (major depressive disorder) Pulmonary nodule Current smoker HTN (hypertension) Surgical History Hx of bilateral cataract extraction History of total left hip arthroplasty Hx of colonoscopy History of esophagogastroduodenoscopy (EGD) History of cervical discectomy Family History Father Lung cancer Brain cancer Mother CVD (cardiovascular disease) Breast cancer Son In good health Brother In good health Social History Household Members: None Household Members Other:: self Housing: House Housing Other:: upper level of 2 family home-brother lives on lower level Are you a primary foster care case manager to a significant other at home: No Do you presently have visiting nurse or other home services: No Alcohol intake: current Alcohol intake frequency: a few times a month Patient Tobacco Use Status: Current everyday Tobacco user Tobacco use type: Cigarette Cigarette Packs Per Day: 1 Cigarettes Per Day: 10 Years Smoked: 38 e-Cigarette/Vaping Use: Never Used Second Hand Smoke Exposure: No Advance Directives Date on File: 10/21/22 service: No Current occupational status: retired Cognitive needs: No Hearing needs: No Vision needs: No Questionnaire Thrive Questionnaire Date Thrive assessed: 02/24/24 JANAY-7 AMB Questionnaire JANAY-7 Date JANAY - 7 assessed: 06/30/23 Source: Developed by Drs. Sal Porras, Alma Marks, Amado Kaur and colleagues, with an educational katya from [employer]. Review of Systems Const Denies headache(s) Eyes Denies loss of vision ENT Denies vertigo, Denies dizziness, Denies headache(s) and Denies sore throat Card Denies chest pain, Denies leg edema and Denies lightheadedness Resp Denies cough, Denies hemoptysis and Denies wheezing GI Denies abdominal pain, Denies melena, Denies constipation, Denies diarrhea and Denies vomiting Denies urinary frequency, Denies dysuria and Denies urinary urgency Musc Denies arthralgias, Denies joint swelling, Denies numbness and Denies tingling Neuro Denies behavioral changes, Denies vertigo, Denies dizziness, Denies headache(s), Denies loss of vision, Denies memory loss, Denies numbness and Denies tingling Psych Denies anxiety, Denies behavioral changes, Denies depression, Denies memory loss and Denies panic attacks Jefe/Lymph Denies easy bleeding and Denies easy bruising Aller/Immun Denies wheezing Physical exam (Primary Care) Tobacco/Smoking Status: Tobacco use Status Tobacco use date assessed 06/30/23 03/04/24 09:19 Patient Tobacco Use Status Current everyday Tobacco 03/04/24 09:19 Tobacco use type Cigarette 03/04/24 09:19 e-Cigarette/Vaping Use Never Used 03/04/24 09:19 Are you ready to quit: No Tobacco cessation counseling provided: Yes Items discussed: Nicotine replacement and QuitWorks Relapse Prevention: discussed the importance of a supportive environment, disc ussed negative mood or depression after quitting, weight gain after smoking is common and discussed dietary, exercise and/or lifestyle changes Number of minutes spent counselin CPT code: 04063 - 4-10 Minutes Thrive Assessment: Date of Thrive Assessment Date Thrive assessed 02/24/24 03/04/24 09:19 Telehealth Telehealth Telehealth Platform: Telephone Location of provider rendering services: practice address Location of patient: address on file Patient Identification confirmed using: Name, : Yes Telehealth method: voice only Patient verbally consented to treatment: Yes Patient verbally consented to billing insurance company: Yes Patient informed of any privacy concerns related to visit: Yes Minutes spent on Phone/Video with Pt.: 12 Assessment and Plan Assessment & Plan (1) Status post carotid endarterectomy: Code(s): Z98.890 - Other specified postprocedural states Plan: As per HPI (2) Tobacco dependence: Code(s): F17.200 - Nicotine dependence, unspecified, uncomplicated Plan: Patient does understand she needs to quit smoking though declines my offers to start any nicotine replacement. (3) HTN (hypertension): Code(s): I10 - Essential (primary) hypertension Qualifiers: Hypertension type: essential hypertension Qualified Code(s): I10 - Essential (primary) hypertension Plan: Patient's blood pressure has been somewhat difficult to control. She does report having normal readings at home though education having high readings. Unclear as to why her blood pressures are sober labile. For now will continue with current dose of metoprolol. She was taken off of lisinopril due to hyperkalemia. She was on amlodipine though did have pedal edema as well. Orders: Orders Complete Blood Count no Diff 03/04/24 Z98.890 - Other specified postprocedural states Lipid Panel 03/04/24 I65.23 - Occlusion and stenosis of bilateral carotid arteries Basic Metabolic Panel 03/04/24 E87.5 - Hyperkalemia Magnesium 03/04/24 E83.42 - Hypomagnesemia Coding Level of Care Code TCM Mod MDM <= 14 Days Diagnoses Status post carotid endarterectomy Z98.890 Tobacco dependence F17.200 Essential hypertension I10 Hypertension type: essential hypertension Additional Codes Vital Signs *Quality* - CPT code: 40854 - 4-10 Minutes ([id number])
== END 2024-03-04 10:22 | disposition home or self-care (01) ==
LOC: HO.HMCH 09:18
PROVIDERS: PCP Physician Assistant; Visit Provider Physician Assistant
DX: Z98.890 Other specified postprocedural states (principal); F17.200 Nicotine dependence, unspecified, uncomplicated; I10 Essential (primary) hypertension

== ENCOUNTER → 2024-03-04 09:18 | Outpatient (BNVA) | payer MEDICARE, SELFPAY | PROVIDERS: PCP Physician Assistant; Visit Provider Physician Assistant ==

== ENCOUNTER 2024-03-09 13:38 | Outpatient (AMB) | payer MEDICARE, SELFPAY ==
--- NOTE | 2024-03-09 13:41 | A.OFFVIS_ITS ---
Intake Visit Reasons: 2 week post op R CEA Intake Note: Patient presents for 2 week follow up right CEA. She states she feels some discomfort. Patient states her right eye is weak . No other complaints. Accompanied by: Sister Allergies cat dander Allergy (Intermediate, Verified 03/09/24 13:43) Itchy Eyes/nasal congestion morphine Allergy (Intermediate, Verified 03/09/24 13:43) Flushing-facial Seasonal Allergies Allergy (Intermediate, Verified 03/09/24 13:43) Itchy Eyes HPI HPI 2 week post op R CEA: Details: Very pleasant 69-year-old female presents for follow-up status post right carotid endarterectomy she underwent carotid endarterectomy for nearly 90% stenosis. Postoperatively she seemed to do pretty well she did have some O2 sat issues. She was subsequently discharged on home O2. Postoperatively she appears neurologically intact. She is tolerating a regular diet with no significant complaints. [facility] Medical History Cachexia Nasal sinus congestion Cricopharyngeal achalasia Spinal stenosis COPD (chronic obstructive pulmonary disease) Acute respiratory failure with hypoxia Femoral neck fracture GERD (gastroesophageal reflux disease) JANAY (generalized anxiety disorder) IBS (irritable bowel syndrome) MDD (major depressive disorder) Pulmonary nodule Current smoker HTN (hypertension) Surgical History Hx of bilateral cataract extraction History of total left hip arthroplasty Hx of colonoscopy History of esophagogastroduodenoscopy (EGD) History of cervical discectomy Family History Father Lung cancer Brain cancer Mother CVD (cardiovascular disease) Breast cancer Son In good health Brother In good health Social History Household Members: None Household Members Other:: self Housing: House Housing Other:: upper level of 2 family home-brother lives on lower level Are you a primary care management assistant to a significant other at home: No Do you presently have visiting nurse or other home services: No Alcohol intake: current Alcohol intake frequency: a few times a month Patient Tobacco Use Status: Current everyday Tobacco user Tobacco use type: Cigarette Cigarette Packs Per Day: 1 Cigarettes Per Day: 10 Years Smoked: 38 e-Cigarette/Vaping Use: Never Used Second Hand Smoke Exposure: No Advance Directives Date on File: 10/21/22 service: No Current occupational status: retired Cognitive needs: No Hearing needs: No Vision needs: No Review of Systems Const All systems reviewed & are unremarkable except as noted in HPI and below Reports no additional complaints ENT Reports Normal hearing present Card Denies chest pain, Denies chest pain at rest, Denies chest pain with activity and Denies pedal edema Resp Denies cough GI Denies abdominal pain Musc Denies abnormal gait, Denies muscle cramps and Denies radiating pain into limb Skin/Breast Denies skin ulcer and Denies wounds Neuro Reports Normal hearing present and Denies abnormal gait Psych Reports no additional complaints Physical Exam Const General: cooperative, healthy appearing and comfortable Orientation/consciousness: oriented to person, oriented to place and oriented to time HEENT Head: Yes normal to inspection Neck Neck: Yes normal visual inspection Carotids: no bruits Chest Chest palpation & inspection: normal inspection of the chest Resp Effort & Inspection: normal respiratory effort and able to speak in complete sentences Auscultation: clear to auscultation bilaterally, no crackles, no rales, no rhonchi and no wheezes Cardio Rate: regular rate Rhythm: regular rhythm Heart sounds: S1 normal heart sound present and S2 normal heart sound present Bruits: no carotid bruits Peripheral pulses: Peripheral pulses 2+ throughout GI Inspection: Yes normal to inspection Skin Other: Right neck incision well healed Wounds: no wounds Hair: normal Neuro General: oriented to person, oriented to place and oriented to time Cranial nerves: Yes CN's II-XII intact bilaterally and Yes Normal hearing present Cognition (Neuro): normal cognition Motor exam (neuro): 5/5 motor strength present throughout Extrem Other: venous exam: No significant superficial varicosities or spider telangiectasias, minimal edema General: No clubbing, No cyanosis and No edema Psych Appearance: grossly normal Mental Status: mental status grossly normal Speech and movement: Normal speech and movement present Assessment & Plan Assessment & Plan (1) Bilateral carotid artery disease: Comment: 02/23/2024 - right carotid endarterectomy Code(s): I77.9 - Disorder of arteries and arterioles, unspecified Category: Medical Qualifiers: Carotid artery disease type: stenosis Qualified Code(s): I65.23 - Occlusion and stenosis of bilateral carotid arteries Plan: In short patient is doing well status post right carotid endarterectomy. Appears to be improving nicely. We did discuss routine risk factor modification and she will follow up with us in 3 months for routine surveillance. Should there be any interval issues happy to see her back sooner. Thank you for allowing us to assist in her care. If there are any questions or concerns please do not hesitate to contact us Orders: Orders US carotid duplex BI 3 Months I65.23 - Occlusion and stenosis of bilateral carotid arteries Coding Level of Care Code Est Pt Level 3 (47306) Diagnoses Bilateral carotid artery stenosis I65.23 Carotid artery disease type: stenosis
== END 2024-03-09 14:27 | disposition home or self-care (01) ==
PROVIDERS: PCP Physician Assistant; Visit Provider Surgery Vascular Surgery
DX: I65.23 Occlusion and stenosis of bilateral carotid arteries (principal)
CPT/HCPCS: 99024

== ENCOUNTER 2024-03-09 13:38 | Outpatient (REF) | payer MEDICARE, SELFPAY ==
[2024-03-09 15:51] LABS: Hematocrit 39.2 % (37.0-47.0); Hemoglobin 13.1 g/dl (12.0-16.0); Mean Corpuscular HGB Conc 33.4 g/dl (31.0-35.0); Mean Corpuscular Hemoglobin 34.5 pg (27.0-33.0); Mean Corpuscular Volume 103.2 fL (80.0-98.0); Mean Platelet Volume 9.6 fL (9.4-12.3); Platelet Count 286 X10*3/uL (160-400); Red Cell Distribution Width 13.1 % (11.0-16.0); White Blood Count 7.5 X10*3/uL (4.8-10.8)
[2024-03-09 17:57] LABS: Anion Gap 15 (12-20); Blood Urea Nitrogen 15 mg/dL (9-16); Calcium 9.2 mg/dL (8.4-10.2); Carbon Dioxide 26 mmol/L (22-29); Chloride 100 mmol/L (96-108); Cholesterol 267 mg/dL (<200); Estimated Glomerular Filt Rate > 60; Glucose Random 103 mg/dL (60-115); HDL Cholesterol 82 mg/dL (>40); LDL Cholesterol Calculated 162 mg/dL (<100); Magnesium 1.6 mg/dL (1.6-2.6); Potassium 4.6 mmol/L (3.3-5.1); Sodium 136 mmol/L (135-145); Triglycerides 118 mg/dL (<150)
== END 2024-03-09 13:39 | disposition home or self-care (01) ==
LOC: HO.LAB 13:38
PROVIDERS: Absent Provider Physician Assistant; PCP Physician Assistant; Visit Provider Surgery Vascular Surgery
DX: I65.23 Occlusion and stenosis of bilateral carotid arteries (principal); E83.42 Hypomagnesemia; E87.5 Hyperkalemia; Z98.890 Other specified postprocedural states
CPT/HCPCS: 36415; 80048; 80061; 83735; 85027; 99212

== ENCOUNTER 2024-03-26 10:52 | Outpatient (AMB) | payer MEDICARE, SELFPAY ==
--- NOTE | 2024-03-26 10:53 | MHC.OFFVIS ---
Vital Signs 03/26/24 10:54 Height 5 ft 4 in Weight 100 lb BMI 17.2 BP 146/86 H Blood Pressure Location Lt brachial Position Sitting Respiration 16 Pulse 110 H Pulse Source Pulse Oximeter Pulse Oximetry (%) 91 L Oxygen Delivery Method Room Air Intake Visit Reasons: PROCEDURE DISCUSSION Allergies cat dander Allergy (Intermediate, Verified 03/26/24 10:55) Itchy Eyes/nasal congestion morphine Allergy (Intermediate, Verified 03/26/24 10:55) Flushing-facial Seasonal Allergies Allergy (Intermediate, Verified 03/26/24 10:55) Itchy Eyes Medication List - Last Reconciled 03/26/24 by Ofelia Clarke, JULIANA acetaminophen 650 mg (2 x 325 mg) PO Q6H PRN 30 days albuterol sulfate 90 mcg/actuation 1 puff inhalation QID PRN albuterol sulfate 2.5 mg (3 mL) inhalation Q6H PRN 30 days aspirin 325 mg PO DAILY PRN atorvastatin 10 mg PO DAILY back brace As directed blood pressure test kit-small As directed cyclobenzaprine 5 mg PO BID PRN 15 days ipratropium-albuterol 0.5 mg-3 mg(2.5 mg base)/3 mL 3 mL inhalation BID PRN magnesium oxide 400 mg PO DAILY metoprolol succinate ER 50 mg PO DAILY 30 days montelukast 10 mg PO DAILY multivitamin 1 tab PO DAILY pantoprazole 40 mg PO DAILY@0630 HPI HPI PROCEDURE DISCUSSION: Details: 69-year-old female who presents today to the office for discussion of procedure. She reports pain and a popping sensation in her bilateral lower back that radiates down to the leg. She also reports weakness in her leg. She also reports swelling in her bilateral legs. She had an echocardiogram, which was unremarkable. She started the treatment for osteoporosis with oral medication. She was offered bilateral minimal invasive lumbar decompression at L2-3, L3-4, and L4-5 followed by L3-L4-L5 BVN ablation and then considered a right L3-4 facet injection/aspiration, which she deferred about a year ago. She underwent carotid endarterectomy for nearly 90% stenosis. She has a history of cervical discectomy in the past. She lives alone, but her brother lives in the same building on the 1st floor. [facility] Medical History Cachexia Nasal sinus congestion Cricopharyngeal achalasia Spinal stenosis COPD (chronic obstructive pulmonary disease) Acute respiratory failure with hypoxia Femoral neck fracture GERD (gastroesophageal reflux disease) JANAY (generalized anxiety disorder) IBS (irritable bowel syndrome) MDD (major depressive disorder) Pulmonary nodule Current smoker HTN (hypertension) Surgical History Hx of bilateral cataract extraction History of total left hip arthroplasty Hx of colonoscopy History of esophagogastroduodenoscopy (EGD) History of cervical discectomy Family History Father Lung cancer Brain cancer Mother CVD (cardiovascular disease) Breast cancer Son In good health Brother In good health Social History Household Members: None Household Members Other:: self Housing: House Housing Other:: upper level of 2 family home-brother lives on lower level Are you a primary daycare worker to a significant other at home: No Do you presently have visiting nurse or other home services: No Alcohol intake: current Alcohol intake frequency: a few times a month Patient Tobacco Use Status: Current everyday Tobacco user Tobacco use type: Cigarette Cigarette Packs Per Day: 1 Cigarettes Per Day: 10 Years Smoked: 38 e-Cigarette/Vaping Use: Never Used Second Hand Smoke Exposure: No Advance Directives Date on File: 10/21/22 service: No Current occupational status: retired Cognitive needs: No Hearing needs: No Vision needs: No Review of Systems Const All systems reviewed & are unremarkable except as noted in HPI and below Physical Exam Vital Signs: Last Vital Signs Pulse 110 H 03/26/24 10:54 Resp 16 03/26/24 10:54 BP 146/86 H 03/26/24 10:54 Pulse Ox 91 L 03/26/24 10:54 Oxygen Delivery Method Room Air 03/26/24 10:54 BMI result Body Mass Index 17.2 General: Appears afebrile. Alert and oriented. Mood and affect appropriate. Follows and participates in conversation appropriately. Respiratory effort is unlabored. Able to transition from sit to stand unassisted. Ambulates with bilaterally normal heel strike and toe off. Results Reviewed Results Reviewed: No imaging is available for review. Assessment & Plan Assessment & Plan (1) Vertebrogenic low back pain: Code(s): M54.51 - Vertebrogenic low back pain Category: Medical (2) Spinal stenosis of lumbar region with neurogenic claudication: Code(s): M48.062 - Spinal stenosis, lumbar region with neurogenic claudication Category: Medical (3) Lumbar spondylosis: Code(s): M47.816 - Spondylosis without myelopathy or radiculopathy, lumbar region Category: Medical (4) Dysfunction of the multifidus muscle of lumbar region: Code(s): M62.85 - Dysfunction of the multifidus muscles, lumbar region Category: Medical Plan Discussed a temporary peripheral nerve stimulator as a possible treatment option for her intractable back pain, which has not been responsive to other measures and is secondary to significant degenerative changes in her lumbar spine including lumbar spondylosis and associated multifidus atrophy and scarring.? We will schedule her for a temporary right L3 medial branch nerve stimulator placement followed by the left side two weeks later. Discussed the risks and benefits of the procedure with the patient in detail. All questions were answered. The patient is on board with the plan. Justification for interventional therapy: ? Patient with average pain > 6/10 ? Patient has exhausted conservative therapy ? Patient unable to tolerate physical therapy due to pain. . Patient has a good understanding of their pain condition and has appropriate mental and social support Scribed for Dr. Grewal by Manpreet Gao, medical office professional instructor, on 03/26/2024. I, Dr. Grewal, have personally reviewed and agree with the information entered by the scribe. Coding Level of Care Code Est Pt Level 4 (24604) Diagnoses Vertebrogenic low back pain M54.51 Spinal stenosis of lumbar region with neurogenic claudication M48.062 Lumbar spondylosis M47.816 Dysfunction of the multifidus muscle of lumbar region M62.85
[2024-03-26 10:54] VITALS: BP 146/86; PULSE 110; RESP 16; O2SAT 91; BMI 17.2
== END 2024-03-26 11:16 | disposition home or self-care (01) ==
PROVIDERS: PCP Physician Assistant; Visit Provider Internal Medicine
DX: M54.51 Vertebrogenic low back pain (principal); M48.062 Spinal stenosis, lumbar region with neurogenic claudication; M47.816 Spondylosis without myelopathy or radiculopathy, lumbar region; M62.85 Dysfunction of the multifidus muscles, lumbar region
CPT/HCPCS: 99214

== ENCOUNTER → 2024-03-26 10:52 | Outpatient (BNVA) | payer MEDICARE, SELFPAY | PROVIDERS: PCP Physician Assistant; Visit Provider Internal Medicine | DX: M54.51 Vertebrogenic low back pain (principal); M48.062 Spinal stenosis, lumbar region with neurogenic claudication; M47.816 Spondylosis without myelopathy or radiculopathy, lumbar region; M62.85 Dysfunction of the multifidus muscles, lumbar region | CPT/HCPCS: 99212 ==

== ENCOUNTER 2024-03-30 10:29 | Outpatient (REF) | payer MEDICARE, SELFPAY ==
--- NOTE | ~2024-03-30 | CT_ITS ---
EXAMINATION: CT CHEST WITHOUT CONTRAST CLINICAL INFORMATION: Nicotine dependence, unspecified, uncomplicated. COMPARISON: CTA of the chest PE protocol dated February 20, 2023. TECHNIQUE: Multidetector volumetric CT imaging of the chest was done. Axial MIP volume rendering provided. Sagittal and coronal reformatted images were obtained. This CT examination was performed using dose optimization techniques as appropriate, variously including the following: *Automated exposure control *Adjustment of mA and/or kV according to patient size (this includes techniques or standardized protocols for targeted exams where dose is matched to indication/reason for exam; i.e. extremities or head) *Use of iterative reconstruction technique DLP: 102.0 mGy-cm FINDINGS: Submitted for interpretation on May 26, 2024. There is a 4 mm noncalcified pulmonary groundglass, right upper lobe probably posterior segment. There is a cluster of 2 mm noncalcified pulmonary nodules, apical posterior segment left upper lobe. There is a 1 mm noncalcified pulmonary nodule in the left upper lobe. 1.5 mm calcified pulmonary nodule, left lung base and right lung base . 1.5 mm calcified pulmonary nodule, right upper lobe. Linear attenuation abnormality is in the lingula and right middle lobe probably scarring. No consolidation, pleural effusion or pneumothorax. Hyperinflated lungs. Centrilobular emphysematous changes. No bronchiectasis. No honeycombing. Respiratory airways patent. Nonspecific prominent less than 1 cm lymph nodes. Calcified plaques in the thoracic aorta wall and its main branches. No aneurysm. Calcified plaques in the coronary arteries. No pericardial effusion. Calcified plaques in the abdominal aorta wall. The thyroid gland is not enlarged. Multilevel spondylosis. Sclerotic compression deformity representing 50% volume loss with 4 mm retropulsion at L1 vertebra, unchanged.. CT/CT chest wo IV con IMPRESSION: Emphysema. Multiple subcentimeter noncalcified pulmonary nodules. Recommend follow up. Granulomata Fleischner guidelines were followed. Electronically signed by: Rajinder Olsen MD 05/26/2024 02:35 PM EST
== END 2024-03-30 10:30 | disposition home or self-care (01) ==
LOC: HO.CT 10:29
PROVIDERS: PCP Physician Assistant; Visit Provider Nurse Practitioner Family
DX: F17.200 Nicotine dependence, unspecified, uncomplicated (principal)
CPT/HCPCS: 71250

== ENCOUNTER → 2024-03-30 10:33 | Outpatient (BNV) | payer MEDICARE, SELFPAY | PROVIDERS: PCP Physician Assistant; Visit Provider Radiology Diagnostic Radiology | DX: Z12.2 Encounter for screening for malignant neoplasm of respiratory organs (principal); F17.200 Nicotine dependence, unspecified, uncomplicated | CPT/HCPCS: 71250 ==

== ENCOUNTER 2024-06-29 13:34 | Outpatient (REF) | payer MEDICARE, SELFPAY ==
--- NOTE | ~2024-06-29 | CT_ITS ---
CLINICAL HISTORY: K52.9 - Noninfective gastroenteritis and colitis, unspecified CT abdomen and pelvis with contrast Comparison: None Findings: The visualized portions of the lungs are normal in appearance. The liver is normal in size without suspicious focal hepatic lesions. No intrahepatic or extrahepatic ductal dilatation is seen. The hepatic and portal veins are patent. There are calcified gallstones in the gallbladder. Pancreas, spleen and adrenals are normal in appearance. No suspicious focal lesion of the kidneys. No hydronephrosis or calculi. The abdominal aorta demonstrates no evidence of aneurysmal dilatation or dissection. Atherosclerosis calcification of the aorta. Colonic diverticulosis with bowel wall thickening of the colon. No evidence of bowel obstruction. Appendix is not visualized. Evaluation of the pelvis is limited by the artifact from the left hip prosthesis. No intraperitoneal free air or fluid is visualized. No pathologic lymphadenopathy is seen. Scoliosis with multilevel degenerative changes. There is compression fracture of the L1. Left hip replacement. IMPRESSION: Colonic diverticulosis with bowel wall thickening of the colon concerning for acute diverticulitis. Cholelithiasis. Additional findings as above. This document has been electronically signed by: Israel Oakes MD on 06/29/2024 17:15:01
[2024-06-29 14:35] LABS: Anion Gap 20 (12-20); Blood Urea Nitrogen 17 mg/dL (9-16); Calcium 10.6 mg/dL (8.4-10.2); Carbon Dioxide 26 mmol/L (22-29); Chloride 98 mmol/L (96-108); Estimated Glomerular Filt Rate 53; Glucose Random 116 mg/dL (60-115); Potassium 5.9 mmol/L (3.3-5.1); Sodium 138 mmol/L (135-145)
[2024-06-29] MEDS: iohexoL 350 MG/ML 75 ML INFUS..BTL 85 ML IV (16:24)
== END 2024-06-29 13:35 | disposition home or self-care (01) ==
LOC: HO.CT 13:34
PROVIDERS: PCP Physician Assistant; Visit Provider Physician Assistant
DX: E87.1 Hypo-osmolality and hyponatremia (principal); R14.0 Abdominal distension (gaseous); K52.9 Noninfective gastroenteritis and colitis, unspecified
CPT/HCPCS: 36415; 74177; 80048; 83735; Q9967

== ENCOUNTER → 2024-06-29 13:54 | Outpatient (BNV) | payer MEDICARE, SELFPAY | PROVIDERS: PCP Physician Assistant; Visit Provider Nuclear Medicine | DX: K57.30 Diverticulosis of large intestine without perforation or abscess without bleeding (principal); K80.20 Calculus of gallbladder without cholecystitis without obstruction | CPT/HCPCS: 74177 ==

== ENCOUNTER 2024-07-06 10:43 | Outpatient (AMB) | payer MEDICARE, SELFPAY ==
--- NOTE | 2024-07-06 10:47 | MHC.PC.OV ---
Vital Signs 07/06/24 10:50 Height 5 ft 4 in Weight 102 lb BMI 17.5 BP 120/66 Blood Pressure Location Lt brachial Position Sitting Pulse 108 H Pulse Source Pulse Oximeter Temp 97.1 F Temp Source Skin Pulse Oximetry (%) 95 Oxygen Delivery Method Room Air Intake Visit Reasons: PE Intake Note: Patient is here today for a physical. Torpedo Shooter Required: No Pull Up Hand: Not Required per policy Accompanied by: Self / Same As Patient Allergies cat dander Allergy (Intermediate, Verified 07/06/24 11:08) Itchy Eyes/nasal congestion morphine Allergy (Intermediate, Verified 07/06/24 11:08) Flushing-facial Seasonal Allergies Allergy (Intermediate, Verified 07/06/24 11:08) Itchy Eyes Medication List - Last Reconciled 07/06/24 by Michel Dodd PA-C acetaminophen 650 mg (2 x 325 mg) PO Q6H PRN 30 days albuterol sulfate 90 mcg/actuation 1 puff inhalation QID PRN albuterol sulfate 2.5 mg (3 mL) inhalation Q6H PRN 30 days alendronate mg PO aspirin 325 mg PO DAILY PRN atorvastatin 10 mg PO DAILY back brace As directed baclofen 10 mg PO BID PRN 30 days blood pressure test kit-small As directed cholecalciferol (vitamin D3) 50 mcg PO DAILY cyclobenzaprine 5 mg PO BID PRN 15 days ipratropium-albuterol 0.5 mg-3 mg(2.5 mg base)/3 mL 3 mL inhalation BID PRN magnesium oxide 400 mg PO DAILY 30 days metoprolol succinate ER 25 mg PO DAILY montelukast 10 mg PO DAILY multivitamin 1 tab PO DAILY ondansetron HCl 4 mg PO Q8H PRN 7 days pantoprazole 40 mg PO DAILY@0630 sodium polystyrene sulf-sorbtl 15-20 gram/60 mL 60 mL PO .Once per week 4 weeks Tobacco use date assessed: 07/06/24 Fall risk assessment: No Falls in past year Last assessed Fall Risk: 07/06/24 Dental Screening Dental Screen Date: 07/06/24 Did you have a dental visit in the last 12 months?: Yes Did you have a dental problem in the last 6 months where you did not have access to dental care?: No Was dental information given to patient?: Patient has dentist HPI PE HPI Details Female here today for routine annual physical. Patient has a past medical history significant for hyperlipidemia, carotid stenosis, COPD, tobacco dependency, hypertension. Concern--> reports she continues to have urinary frequency and urgency though has been a chronic issue. PLAN: Will try medication for possible spastic bladder issue. .. Recently found to have hyperkalemia was to start oral solution to help reduce potassium. Also has hypomagnesemia likely secondary to her GI issues. Recent CT scan of abdomen showing diverticulitis. She has been treated with dual antibiotic those GI symptoms though remain. She reports most of her GI discomfort over the upper abdomen. Of note did have cholelithiasis. She has not gotten a colonoscopy or endoscopy in several decades. She does admit to having peptic ulcer in the past noted on endoscopy Hypertension: Patient's blood pressure acceptable today in office. She is concerned about amlodipine as she feels it is causing her blood pressure to be too low. Has discontinued amlodipine. Continues on lisinopril and metoprolol .. IBS: Patient continues to have chronic abdominal pain and loose stools. She was diagnosed with IBS several years ago. .. Lumbar spine disease: Patient is followed by [facility] and is considering lumbar vertebral surgery. She understand she needs to quit smoking to be able to heal well after surgery. Has had vertebral fractures in the past. Colorectal cancer screening: need up to date colonoscopy. . mammogram: Is willing to be scheduled for mammogram. Vaccines: Up-to-date with pneumonia vaccine, up-to-date with COVID vaccine, considering shingles vaccine. [facility] Medical History (Updated 07/06/24 @ 12:57 by Michel Dodd PA-C) GERD (gastroesophageal reflux disease) Cachexia Nasal sinus congestion Cricopharyngeal achalasia Spinal stenosis COPD (chronic obstructive pulmonary disease) Acute respiratory failure with hypoxia Femoral neck fracture JANAY (generalized anxiety disorder) IBS (irritable bowel syndrome) MDD (major depressive disorder) Pulmonary nodule Current smoker HTN (hypertension) Surgical History History of third molar tooth extraction, class I edentulism Hx of bilateral cataract extraction History of total left hip arthroplasty Hx of colonoscopy History of esophagogastroduodenoscopy (EGD) History of cervical discectomy Family History Father Lung cancer Brain cancer Mother CVD (cardiovascular disease) Breast cancer Son In good health Brother In good health Social History Household Members: None Household Members Other:: self Housing: House Housing Other:: upper level of 2 family home-brother lives on lower level Are you a primary healthcare specialist to a significant other at home: No Do you presently have visiting nurse or other home services: No Alcohol intake: current Alcohol intake frequency: a few times a month Patient Tobacco Use Status: Current everyday Tobacco user Tobacco use type: Cigarette Cigarette Packs Per Day: 1 Cigarettes Per Day: 20 Years Smoked: 38 e-Cigarette/Vaping Use: Never Used Second Hand Smoke Exposure: Yes Advance Directives Date on File: 10/21/22 service: No Current occupational status: retired Cognitive needs: No Hearing needs: No Vision needs: No Questionnaire PHQ-9 Over the last 2 weeks, how often have you been bothered by any of the following problems? 1. Little interest or pleasure in doing things: not at all 2. Feeling down, depressed, or hopeless: not at all 3. Trouble falling or staying asleep, or sleeping too much: several days 4. Feeling tired or having little energy: several days 5. Poor appetite or overeating: several days 6. Feeling bad about yourself - or that you are a failure or have let yourself or your family down: not at all 7. Trouble concentrating on things, such as reading the newspaper or watching television: not at all 8. Moving or speaking so slowly that other people could have noticed. Or the opposite - being so fidgety or restless that you have been moving around a lot more than usual: not at all 9. Thoughts that you would be better off or of hurting yourself in some way: not at all Total score: 3 Depression Screening Interpretation: Positive Depression Screening Follow-up: Existing condition Depression Screening Done: Yes 31015 - PHQ-9 Billing: Yes Source: Developed by Drs. Sal Porras, Alma Marks, Amado Kaur and colleagues, with an educational katya from [employer]. Thrive Questionnaire Date Thrive assessed: 07/06/24 I am a: Parent/Caregiver What is your living situation today?: I choose not to answer this question Within the past 12 months, did the food you bought not last and you didn't have the money to get more?: I choose not to answer this question Within the past 12 months, did you worry whether your food would run out before you got money to buy more?: I choose not to answer this question Do you have trouble paying for medicines?: Yes Do you have trouble getting transportation to medical appointments?: I choose not to answer this question Do you have trouble paying your heating and electricity bill?: I choose not to answer this question Do you have trouble taking care of your child, family member or friend?: I choose not to answer this question Do you have trouble with day-to-day activities such as bathing, preparing meals, shopping, managing finances, etc.?: Yes Are you currently unemployed and looking for a job?: I choose not to answer this question Are you interested in more education?: No Please select the resources that you would like help with: None Currently or been in a relationship where the following occur: No concerns reported THRIVE Score: 0 AUDIT C Alcohol Use Questionnaire (AUDIT-C) 1. How often do you have a drink containing alcohol?: 4 or more times a week 2. How many drinks containing alcohol do you have on a typical day when you are drinking?: 1 or 2 Total Score: 4 JANAY-7 AMB Questionnaire JANAY-7 Date JANAY - 7 assessed: 07/06/24 Feeling nervous, anxious, or on edge: 0 = Not at all Not being able to stop or control worryin = Not at all Worrying too much about different things: 0 = Not at all Trouble relaxin = Not at all Being so restless that it is hard to sit still: 0 = Not at all Becoming easily annoyed or irritable: 0 = Not at all Feeling afraid as if something awful might happen: 0 = Not at all Total JANAY-7 score (0-4 normal; 5-9 mild; 10-14 moderate; 15-21 severe): 0 Source: Developed by Drs. Sal Porras, Alma Marks, Amado Kaur and colleagues, with an educational katya from [employer]. JANAY-7 Assessment Billing JANAY-7 Assessment Tool: JANAY-7 Assessment 54521 Review of Systems Const Denies body aches, Denies chills, Denies excessive sweating, Denies fatigue, Denies fever(s) and Denies headache(s) Eyes Denies blurry vision ENT Denies dysphagia, Denies vertigo, Denies dizziness, Denies headache(s), Denies hearing loss and Denies tinnitus Card Denies chest pain, Denies chest pain with activity, Denies syncope, Denies irregular heart rhythm and Denies dyspnea Resp Denies chest congestion, Denies cough, Denies hemoptysis, Denies dyspnea and Denies wheezing GI Denies abdominal pain, Denies melena, Reports bloating, Denies hematochezia, Denies coffee ground emesis, Denies dysphagia, Reports diarrhea, Reports loose stools, Reports nausea and Denies vomiting Denies urinary frequency, Denies dysuria, Denies urinary hesitancy and Denies urinary urgency Musc Denies arthralgias, Denies limited range of motion, Denies muscle cramps and Denies muscle weakness Skin/Breast Denies rash and Denies skin ulcer Neuro Denies Abnormal speech present, Denies confusion, Denies vertigo, Denies dizziness, Denies syncope, Denies headache(s), Denies memory loss and Denies seizure-like activity Psych Denies anxiety, Denies confusion, Denies depression, Denies memory loss, Denies panic attacks and Denies paranoia Endo Denies excessive sweating, Denies fatigue, Denies flushing, Denies polydipsia and Denies polyuria Aller/Immun Denies wheezing Physical exam (Primary Care) Vital Signs: Last Vital Signs Temp 97.1 F 07/06/24 10:50 Pulse 108 H 07/06/24 10:50 BP 120/66 07/06/24 10:50 Pulse Ox 95 07/06/24 10:50 Oxygen Delivery Method Room Air 07/06/24 10:50 BMI result Body Mass Index 17.5 Tobacco/Smoking Status: Tobacco use Status Tobacco use date assessed 07/06/24 07/06/24 10:57 Patient Tobacco Use Status Current everyday Tobacco 07/06/24 10:47 Tobacco use type Cigarette 07/06/24 10:47 e-Cigarette/Vaping Use Never Used 07/06/24 10:47 Are you ready to quit: No Tobacco cessation counseling provided: Yes Items discussed: Nicotine replacement and QuitWorks Relapse Prevention: discussed the importance of a supportive environment, discussed negative mood or depression after quitting, weight gain after smoking is common and discussed dietary, exercise and/or lifestyle changes Number of minutes spent counselin CPT code: 35106 - 4-10 Minutes PHQ-9: PHQ-9 Score PHQ-9: Total score 3 07/06/24 10:48 Depression Screening Interpretation: Positive Depression Screening Follow-up: Existing condition Thrive Assessment: Date of Thrive Assessment Date Thrive assessed 07/06/24 07/06/24 10:47 Currently or been in a relationship where the following occur: No concerns reported Const General: cooperative, comfortable, no acute distress, alert and awake; No confusion Orientation/consciousness: oriented to person, oriented to place, patient oriented x3 and No confusion HENMT Head: Yes normocephalic Ears: external ears normal and TM's normal bilaterally Face and sinus: No sinus tenderness Mouth: Normal oral and palatal mucosa present and tongue normal Teeth and gingiva: dentition normal and gingiva normal Throat: Yes posterior oropharynx normal, Yes tonsils normal and Yes uvula midline Eyes Conjunctivae: conjunctivae normal Sclerae: sclerae normal Pupils: Equal, round and reactive pupils present EOM: EOMs intact bilaterally Direct Ophthalmoscopy: No no photophobia Neck Neck: Yes no lymphadenopathy, No tender and Yes no JVD Thyroid: Thyroid normal Carotids: no bruits Chest Chest palpation & inspection: no tenderness Resp Effort & Inspection: normal respiratory effort, no audible wheezes, not labored and no stridor Auscultation: no crackles, no rales, no rhonchi and no wheezes Cardio Jugular venous distension: no JVD Rate: regular rate, not bradycardic and not tachycardic Rhythm: regular rhythm Bruits: no carotid bruits Peripheral pulses: Peripheral pulses 2+ throughout GI Inspection: Yes normal to inspection, No abdominal wall ecchymosis and No visible herniation Palpation (GI): Soft to palpation, Tenderness to palpation present (GI) in the epigastrum, no guarding, not rigid and No hepatosplenomegaly present Auscultation: normoactive bowel sounds General: Yes no CVA tenderness Back/Spine/Pelvis Back: no CVA tenderness and No back tenderness Cervical Spine: cervical ROM normal Thoracic/Lumbar Spine: thoracic and lumbar spine normal to inspection, straight leg raise negative bilaterally, No thoraco-lumbar ROM limited and No lumbar spinal tenderness Skin Lesions: no lesions Rashes: no rashes Wounds: no wounds Neuro General: oriented to person, oriented to place, patient oriented x3, CN's II-XI intact bilaterally and No confusion Cranial nerves: Yes Equal, round and reactive pupils present and Yes Normal accommodation reflex present Cognition (Neuro): normal cognition Speech: No Abnormal speech present Gait exam (Neuro): Normal gait present Motor exam (neuro): 5/5 motor strength present throughout Extrem Right upper extremity: full ROM; no cyanosis Left upper extremity: full ROM; no cyanosis Right lower extremity: no edema Left lower extremity: no edema Psych Appearance: grossly normal Mental Status: mental status grossly normal Affect: normal affect Attitude: cooperative Thought process: Normal thought process present Coding Level of Care Code Est Pt Prev Care >65y(65795) Diagnoses Annual physical exam Z00.00 Tobacco dependence F17.200 Compression fracture of L1 vertebra, sequela S32.010S Encounter type: sequela Bilateral carotid artery stenosis I65.23 Carotid artery disease type: stenosis Encounter for screening mammogram for malignant neoplasm of breast Z12.31 Breast cancer screening modality: mammogram Colitis K52.9 Gastroesophageal reflux disease without esophagitis K21.9 Esophagitis presence: without esophagitis Calculus of gallbladder without cholecystitis without obstruction K80.20 Cholelithiasis location: gallbladder Cholecystitis presence: without cholecystitis Biliary obstruction: without biliary obstruction Spastic bladder N32.89 Centrilobular emphysema J43.2 COPD type: emphysema Emphysema type: centrilobular Additional Codes PHQ-9 - 75740 - PHQ-9 Billing: Yes ([id number]) JANAY-7 Assessment Billing - JANAY-7 Assessment Tool: JANAY-7 Assessment 04487 ([id number]) Vital Signs *Quality* - CPT code: 68864 - 4-10 Minutes ([id number]) Assessment & Plan Assessment & Plan (1) Annual physical exam: Code(s): Z00.00 - Encounter for general adult medical examination without abnormal findings Category: Medical Plan: As per HPI (2) Tobacco dependence: Code(s): F17.200 - Nicotine dependence, unspecified, uncomplicated Category: Medical Plan: Patient does understand she needs to quit smoking though unfortunately has found it very difficult to do so. Have offered nicotine replacement though patient declines. She reports she has cut down to half a pack of cigarettes per day. Not interested in stopping smoking at this time (3) Compression fracture of L1 lumbar vertebra: Code(s): S32.010A - Wedge compression fracture of first lumbar vertebra, initial encounter for closed fracture Category: Medical Qualifiers: Encounter type: sequela Qualified Code(s): S32.010S - Wedge compression fracture of first lumbar vertebra, sequela Plan: Was followed by [facility] and recommend a surgical procedure try to help her lumbar spine though was put on hold due to other medical comorbidities at the time. (4) Bilateral carotid artery disease: Comment: 02/23/2024 - right carotid endarterectomy Code(s): I77.9 - Disorder of arteries and arterioles, unspecified Category: Medical Qualifiers: Carotid artery disease type: stenosis Qualified Code(s): I65.23 - Occlusion and stenosis of bilateral carotid arteries Plan: Followed by vascular surgery. Had critical stenosis in the right carotid artery. Did get a right-sided endarterectomy in 2023. (5) Breast cancer screening: Code(s): Z12.39 - Encounter for other screening for malignant neoplasm of breast Category: Medical Qualifiers: Breast cancer screening modality: mammogram Qualified Code(s): Z12.31 - Encounter for screening mammogram for malignant neoplasm of breast Plan: Need for screening mammogram (6) Colitis: Code(s): K52.9 - Noninfective gastroenteritis and colitis, unspecified Category: Medical Plan: As per HPI noted to have diverticulitis CT abdomen and pelvis. Will try to get gastroenterology involved due to her chronic GI issues and loose stools. Has been having electrolyte deficiencies noted recently. She has been treated with Cipro and metronidazole though feels her GI symptoms are still the same. Will try a prednisone taper for the bowel inflammation. (7) GERD (gastroesophageal reflux disease): Code(s): K21.9 - Gastro-esophageal reflux disease without esophagitis Category: Medical Qualifiers: Esophagitis presence: without esophagitis Qualified Code(s): K21.9 - Gastro-esophageal reflux disease without esophagitis Plan: Continues with pantoprazole though has medication on an empty stomach in the morning. She will try to start using pantoprazole in the morning to help the effectiveness of the med. (8) Cholelithiasis: Code(s): K80.20 - Calculus of gallbladder without cholecystitis without obstruction Category: Medical Qualifiers: Cholelithiasis location: gallbladder Cholecystitis presence: without cholecystitis Biliary obstruction: without biliary obstruction Qualified Code(s): K80.20 - Calculus of gallbladder without cholecystitis without obstruction Plan: Noted to have cholelithiasis on most recent CT abdomen. Will get dedicated ultrasound of the biliary region as she continues to have upper abdominal pain, bloating and often his dry heaving. Consider evaluation for cholecystectomy (9) Spastic bladder: Code(s): N32.89 - Other specified disorders of bladder Category: Medical Plan: Patient reports urinary urgency and frequency for many years. Unclear if this is spastic bladder. Will trial oxybutynin 5 mg extended release (10) COPD (chronic obstructive pulmonary disease): Code(s): J44.9 - Chronic obstructive pulmonary disease, unspecified Category: Medical Qualifiers: COPD type: emphysema Emphysema type: centrilobular Qualified Code(s): J43.2 - Centrilobular emphysema Plan: Patient reports her pulmonary status has been fairly well stable. Unfortunately still smokes. She does have access to albuterol inhaler and albuterol solution to use as needed. Orders: Orders US abdomen complete Today K80.20 - Calculus of gallbladder without cholecystitis without obstruction MM screening mammo BI Today Z12.31 - Encounter for screening mammogram for malignant neoplasm of breast Referrals Gastroenterology Referral K52.9 - Noninfective gastroenteritis and colitis, unspecified Medications: New sodium polystyrene sulfonate 15 grams PO .once per week 4 weeks 453.6 grams 1RF E87.5 - Hyperkalemia prednisone take 3 tabs x 3 days , take 2 tabs x 3 days , take 1 tab x 3 days 10 mg PO DIRECTED 9 days 18 tabs 0RF K52.9 - Noninfective gastroenteritis and colitis, unspecified oxybutynin chloride ER 5 mg PO DAILY 21 days 21 tabs 0RF N32.89 - Other specified disorders of bladder Changed From metoprolol succinate ER 50 mg PO DAILY 30 days 30 tabs 1RF I10 - Essential (primary) hypertension To metoprolol succinate ER 25 mg PO DAILY I10 - Essential (primary) hypertension From pantoprazole take one tablet half an hour before breakfast 40 mg PO DAILY@0630 K21.9 - Gastro-esophageal reflux disease without esophagitis To pantoprazole take one tablet half an hour before breakfast 40 mg PO DAILY@0630 90 days 90 tabs 1RF K21.9 - Gastro-esophageal reflux disease without esophagitis Refilled atorvastatin 10 mg PO DAILY 90 tabs 1RF E78.5 - Hyperlipidemia, unspecified, Z98.890 - Other specified postprocedural states Discontinued sodium polystyrene sulf-sorbtl 15-20 gram/60 mL Discontinued Reason: Doctor's Order 60 mL PO .Once per week 4 weeks 473 mL 1RF E87.5 - Hyperkalemia
[2024-07-06 10:50] VITALS: BP 120/66; PULSE 108; TEMP 36.2; O2SAT 95; BMI 17.5
--- OUTSIDE RECORDS SUMMARY | 2024-07-06 12:14 | XMS_ITS | Clinical Summary ---
Author Organization [facility] Facility Address [address] [place] [address] Care Team Providers Care Carpet Cutter Name Role Phone Michel Dodd Primary Care Provider [phone] Social History Tobacco Use Types Packs/Day Years Used Date Smoking Tobacco: Never Assessed Comments Unknown Sex and Gender Information Value Date Recorded Sex Assigned at Not on file Legal Sex Female 8:47 AM EDT Gender Identity Not on file Sexual Orientation Not on file Plan of Treatment Health Maintenance Due Date Last Done Comments Breast Cancer Screening 1955 Colorectal Cancer Screening: Annual FOBT 02/10/2004 Colorectal Cancer Screening: Colonoscopy 02/10/2004 Colorectal Cancer Screening: Sigmoidoscopy 02/10/2004 Pneumococcal Vaccine: 65+ Ye ars (2 of 2 - PCV) 01/30/2021 01/31/2020 Influenza Vaccine (#1) 2024 Hepatitis B Vaccine Aged Out No longe r eligible based on patient's age to complete this topic Insurance [facility] MEDICARE [facility] MEDICARE Care Teams Carpet Cutter Relationship Specialty Start Date End Date Michel Dodd PA [address] [facility], [address] [place] [address] PCP - General Physician Bariatric Program Coordinator 02/24/23
--- OUTSIDE RECORDS SUMMARY | 2024-07-06 12:14 | XMS_ITS ---
Author Organization [facility] on Address Unknown Allergies, Adverse Reactions, Alerts Substance Reaction Status Noted Date Resolved Date SEASONAL ALLERGIES active 10/24/2022 Morphine active 10/24/2022 Cat Dander/Fur active 10/24/2022 Problems Problem Status Start Date End Date OTHER SPECIFIED SPONDYLOPATH IES, LUMBAR REGION (Primary) (M48.8X6 - ICD-10-CM) ACTIVE 10/24/2022 WEDGE COMPRESSION FRACTURE O F FIRST LUMBAR VERTEBRA, SEQUELA (S32.010S - ICD-10-CM) ACTIVE 10/24/2022 ADULT FAILURE TO THRIVE (R62.7 - ICD-10-CM) ACTIVE 10/24/2022 IRRITABLE BOWEL SYNDROME, UNSPECIFIED (K58.9 - ICD-10- CM) ACTIVE 10/24/2022 GASTRO-ESOPHAGEAL REFLUX DIS EASE WITHOUT ESOPHAGITIS (K21.9 - ICD-10-CM) ACTIVE 10/24/2022 MYALGIA, UNSPECIFIED SITE (M79.10 - ICD-10-CM) ACTIVE 10/24/2022 NICOTINE DEPENDENCE, UNSPECI FIED, UNCOMPLICATED (F17.200 - ICD-10-CM) ACTIVE 10/24/2022 ACUTE CYSTITIS WITHOUT HEMATURIA (N30.00 - ICD-10-CM) ACTIVE 10/24/2022 Encounters Encounter Performer Performer Role Encounter Diagnoses Location Date Discharge - Discharged to home or self care - Home (Agency Unknown) - Private home/apt. with home health services [facility] 10/24/2022 10:40 am EDT - 10/25/2022 04:34 pm EDT Immunizations Vaccine Date Pneumococcal Polysaccharide Vaccine (PPS V23) 01/31/2020 12:00 am EDT SARS-COV-2 (COVID-19) 09/20/2020 12:00 a m EDT Social History
== END 2024-07-06 13:20 | disposition home or self-care (01) ==
PROVIDERS: PCP Physician Assistant; Visit Provider Physician Assistant
DX: Z00.00 Encounter for general adult medical examination without abnormal findings (principal); J43.2 Centrilobular emphysema; F17.200 Nicotine dependence, unspecified, uncomplicated; S32.010S Wedge compression fracture of first lumbar vertebra, sequela; I65.23 Occlusion and stenosis of bilateral carotid arteries; Z12.31 Encounter for screening mammogram for malignant neoplasm of breast; K52.9 Noninfective gastroenteritis and colitis, unspecified; K21.9 Gastro-esophageal reflux disease without esophagitis; K80.20 Calculus of gallbladder without cholecystitis without obstruction; N32.89 Other specified disorders of bladder

== ENCOUNTER → 2024-07-06 10:43 | Outpatient (BNVA) | payer MEDICARE, SELFPAY | PROVIDERS: PCP Physician Assistant; Visit Provider Physician Assistant | DX: Z00.00 Encounter for general adult medical examination without abnormal findings (principal); S32.010S Wedge compression fracture of first lumbar vertebra, sequela; I65.23 Occlusion and stenosis of bilateral carotid arteries; K52.9 Noninfective gastroenteritis and colitis, unspecified; K21.9 Gastro-esophageal reflux disease without esophagitis; K80.20 Calculus of gallbladder without cholecystitis without obstruction; N32.89 Other specified disorders of bladder; J43.2 Centrilobular emphysema; F17.200 Nicotine dependence, unspecified, uncomplicated; Z71.6 Tobacco abuse counseling | CPT/HCPCS: 96127; 99397 ==

== ENCOUNTER 2024-08-05 09:04 | Outpatient (REF) | payer MEDICARE, SELFPAY ==
--- NOTE | ~2024-08-05 | US_ITS ---
CLINICAL HISTORY: K80.20 - Calculus of gallbladder without cholecystitis without obstruction US abdomen complete Comparison: CT/SR - CT ABDOMEN PELVIS W IV CON - 06/29/24 14:53 EST Findings: The visualized pancreas is normal. The aorta and inferior vena cava are normal caliber. The liver is normal in size and echotexture. There is no intrahepatic bile duct dilatation. The common duct is 1 mm in diameter. There are multiple calculi within the gallbladder lumen. The right kidney is 9.8 cm in length. Multiple cysts, largest of which measures 10 mm. The left kidney is 9.6 cm in length. Multiple cysts, largest of which measures 6 mm. The spleen is normal. No ascites. IMPRESSION: 1. Cholelithiasis. 2. No acute process. This document has been electronically signed by: Wendy Olsen MD on 08/06/2024 14:39:32
--- OUTSIDE RECORDS SUMMARY | 2024-08-05 09:42 | XMS_ITS | Clinical Summary ---
Author Organization [facility] Facility Address [address] [place] [address] Care Team Providers Care Jira Administrator Name Role Phone Michel Dodd Primary Care Provider [phone] Social History Tobacco Use Types Packs/Day Years [...] patient's age to complete this topic Insurance [facility] MEDICARE [facility] MEDIC[facility] Care Teams Jira Administrator Relationship Specialty Start Date End Date Michel Dodd PA [address] [facility], [address] [place] [address] PCP - General Physician Transfer And Pumphouse Operator Chief 02/24/23
[2024-08-05 11:27] LABS: Anion Gap 12 (12-20); Blood Urea Nitrogen 18 mg/dL (9-16); Calcium 8.9 mg/dL (8.4-10.2); Carbon Dioxide 28 mmol/L (22-29); Chloride 109 mmol/L (96-108); Estimated Glomerular Filt Rate > 60; Glucose Random 88 mg/dL (60-115); Magnesium 1.8 mg/dL (1.6-2.6); Potassium 4.7 mmol/L (3.3-5.1); Sodium 144 mmol/L (135-145)
== END 2024-08-05 09:05 | disposition home or self-care (01) ==
LOC: HO.LAB 09:04
PROVIDERS: PCP Physician Assistant; Visit Provider Physician Assistant
DX: E83.42 Hypomagnesemia (principal); E87.5 Hyperkalemia; K80.20 Calculus of gallbladder without cholecystitis without obstruction
CPT/HCPCS: 36415; 76700; 80048; 83735

== ENCOUNTER → 2024-08-05 09:11 | Outpatient (BNV) | payer MEDICARE, SELFPAY | PROVIDERS: PCP Physician Assistant; Visit Provider Radiology Diagnostic Radiology | DX: K80.20 Calculus of gallbladder without cholecystitis without obstruction (principal) | CPT/HCPCS: 76700 ==

== ENCOUNTER 2024-08-16 14:26 | Outpatient (AMB) | payer MEDICARE, SELFPAY ==
--- NOTE | 2024-08-16 14:29 | MHC.OFFVIS ---
Vital Signs 08/16/24 14:41 Height 5 ft 4 in Weight 100 lb 1.438 oz BMI 17.2 BP 146/94 H Blood Pressure Location Rt brachial Position Sitting Pulse 102 H Pulse Source Pulse Oximeter Pulse Oximetry (%) 95 Oxygen Delivery Method Room Air Intake Visit Reasons: 1 YR FUV, worsening sx per PCP. Intake Note: ESTABLISHED PATIENT for mgmt of dysphagia + IBS. Chief Complaint; C/O reflux, lack of appetite, fecal inconsistencies, nausea w/o vomiting, abd bloating and distention. Pt denies any additional concerns but reports that they are experiencing all of these sx intermittently for the last few weeks. Advised by PCP to seek earlier appt. Management Engineer Required: No Accompanied by: Self / Same As Patient Allergies cat dander Allergy (Intermediate, Verified 08/16/24 14:30) Itchy Eyes/nasal congestion morphine Allergy (Intermediate, Verified 08/16/24 14:30) Flushing-facial Seasonal Allergies Allergy (Intermediate, Verified 08/16/24 14:30) Itchy Eyes HPI HPI 1 YR FUV, worsening sx per PCP.: Details: LAST VISIT: Cricopharyngeal achalasia Dysphagia Cachexia Colon cancer screening Postprandial diarrhea GERD (gastroesophageal reflux disease) Plan Patient was encouraged to continue avoiding dietary triggers and late night snacking. Will stop omeprazole and patient will start taking pantoprazole in the morning and sucralfate at bedtime. Possible gastritis seen on barium swallow. Patient will need to go for upper endoscopy, however we will rule out celiac, pancreatic insufficiency, H pylori. Will check lipase, vitamin-D, B12, folate. Will check thyroid studies, patient reports postprandial loose stools occasionally. Will start her on fiber supplement. I will see patient in 4 months. Depending on results we will be sending patient for upper endoscopy and colonoscopy. Patient will call our office if she will start feeling worse. Patient should be referred to a dietitian. High calorie diet encouraged to gain weight. Patient is agreeable to current plan of care and verbalizes understanding of instructions she was given the opportunity to questions and all questions answered. ? Thank you for allowing me to participate in her care Orders Orders TSH reflex Free T4 Today K59.00 Vitamin D 25-OH (D2 and D3) Today E55.9 H pylori Ag Stool Today K21.9 Pancreatic Elastase-1 Today R10.9 Lipase Today R10.9 Vitamin B12 and Folate Today R19.7 Medications New methylcellulose (laxative) (Citrucel) 500 mg PO DAILY 30 tabs 2RF K59.00 sucralfate 1 g PO BEDTIME 30 tabs 4RF R19.7 pantoprazole take one tablet half an hour before breakfast 40 mg PO DAILY 30 tabs 2RF K21.9 Discontinued omeprazole Discontinued Reason: Doctor's Order 40 mg PO DAILY 90 caps 1RF TODAY'S VISIT Patient is here today for requested visit. Last time I have seen patient was in October of 2023. Patient was supposed to follow-up with us in 4 months, however she missed appointment. Patient has been dealing a lot with her helped in the past year. Patient had to be admitted and had to have right carotid endarterectomy in February for 90% occlusion. Patient was supposed to go for back surgery and that has to be postponed. Patient reports that she has been having worse symptoms. Epigastric pain postprandially no matter what she eats. Patient states that pantoprazole was not working for her so she switched to omeprazole, however she reports that this is not working for her anymore. Patient reports frequent epigastric pain and nausea. No appetite due to the pain. Patient reports frequent bloating. States that she moves her bowels well. Patient admits to still smoking. Since last year patient actually gained 10 lb. She was 90 lb last year in October. Patient denies any melena, hematochezia. She knows that it is important for him to go for upper endoscopy and colonoscopy in she should be putting it off anymore. All her blood work done last year was normal except for low vitamin D levels. [facility] Medical History Carotid artery occlusion GERD (gastroesophageal reflux disease) Cachexia Nasal sinus congestion Cricopharyngeal achalasia Spinal stenosis COPD (chronic obstructive pulmonary disease) Acute respiratory failure with hypoxia Femoral neck fracture JANAY (generalized anxiety disorder) IBS (irritable bowel syndrome) MDD (major depressive disorder) Pulmonary nodule Current smoker HTN (hypertension) Surgical History History of third molar tooth extraction, class I edentulism Hx of bilateral cataract extraction History of total left hip arthroplasty Hx of colonoscopy History of esophagogastroduodenoscopy (EGD) History of cervical discectomy Family History Father Lung cancer Brain cancer Mother CVD (cardiovascular disease) Breast cancer Son In good health Brother In good health Social History Household Members: None Household Members Other:: self Housing: House Housing Other:: upper level of 2 family home-brother lives on lower level Are you a primary medicare specialist to a significant other at home: No Do you presently have visiting nurse or other home services: No Alcohol intake: current Alcohol intake frequency: a few times a month Patient Tobacco Use Status: Current everyday Tobacco user Tobacco use type: Cigarette Cigarette Packs Per Day: 1 Cigarettes Per Day: 20 Years Smoked: 38 e-Cigarette/Vaping Use: Never Used Second Hand Smoke Exposure: Yes Advance Directives Date on File: 10/21/22 service: No Current occupational status: retired Cognitive needs: No Hearing needs: No Vision needs: No Physical Exam Vital Signs: Last Vital Signs Pulse 102 H 08/16/24 14:41 BP 146/94 H 08/16/24 14:41 Pulse Ox 95 08/16/24 14:41 Oxygen Delivery Method Room Air 08/16/24 14:41 BMI result Body Mass Index 17.2 Const General: no acute distress Nutritional Appearance: cachectic and underweight Orientation/consciousness: patient oriented x3 Resp Effort & Inspection: normal respiratory effort, able to speak in complete sentences, no tracheal deviation and symmetric chest movement Auscultation: clear to auscultation bilaterally Cardio Rate: regular rate GI Inspection: No distended Palpation (GI): Soft to palpation, not firm, nontender and No hepatosplenomegaly present Auscultation: normal bowel sounds General: Yes no CVA tenderness Back/Spine/Pelvis Back: no CVA tenderness Skin General skin exam: elasticity normal, turgor normal and dry skin Neuro General: patient oriented x3 Psych Appearance: grossly normal Mental Status: mental status grossly normal Assessment & Plan Assessment & Plan (1) GERD (gastroesophageal reflux disease): Code(s): K21.9 - Gastro-esophageal reflux disease without esophagitis Category: Medical Qualifiers: Esophagitis presence: without esophagitis Qualified Code(s): K21.9 - Gastro-esophageal reflux disease without esophagitis (2) Abdominal distension: Code(s): R14.0 - Abdominal distension (gaseous) Category: Medical (3) Colitis: Code(s): K52.9 - Noninfective gastroenteritis and colitis, unspecified Category: Medical (4) Cricopharyngeal achalasia: Code(s): K22.0 - Achalasia of cardia Category: Medical (5) Dysphagia: Code(s): R13.10 - Dysphagia, unspecified Category: Medical Qualifiers: Dysphagia type: pharyngeal phase Qualified Code(s): R13.13 - Dysphagia, pharyngeal phase (6) Chronic diarrhea: Code(s): K52.9 - Noninfective gastroenteritis and colitis, unspecified Category: Medical (7) Colon cancer screening: Code(s): Z12.11 - Encounter for screening for malignant neoplasm of colon Category: Medical Plan Long discussion with patient about quitting smoking. Patient was encouraged to avoid dietary triggers in late night snacking. Eating smaller meals and more often. We have discussed that we will refer her to the massage operator to help her with high calorie diet. In the meantime patient was encouraged to try low FODMAP diet to help her decrease bloating. List of food recommended as well as list of food to avoid given to patient. Message sent to Surgical scheduled to call patient and the procedure. Patient will be sent for upper endoscopy and colonoscopy. Will start her on lansoprazole 30 mg half an hour before breakfast. If will not work we will send her script for sucralfate all cholestyramine. 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 Patient was also encouraged to increase fiber. She will try to take dual action pre and probiotic. Increase fluid intake and activity. Patient will follow-up in our office in 2-3 months to discuss the prep and to re-evaluate. Message sent to Surgical schedules to book both endoscopy and colonoscopy for patient. Patient is agreeable to current plan of care and verbalizes understanding of instructions. She was given the opportunity to ask questions and all questions answered. Thank you for allowing me to participate in her care Orders: Referrals Hog Handler Nutrition Referral R63.4 - Abnormal weight loss Medications: New lansoprazole 30 mg PO DAILY 30 caps 3RF K21.9 - Gastro-esophageal reflux disease without esophagitis Discontinued omeprazole Discontinued Reason: Doctor's Order 40 mg PO DAILY 90 days 90 caps 1RF K21.9 - Gastro-esophageal reflux disease without esophagitis Coding Level of Care Code Est Pt Level 4 (70245) Complex EM visit Add On G2211 Diagnoses Gastroesophageal reflux disease without esophagitis K21.9 Esophagitis presence: without esophagitis Abdominal distension R14.0 Colitis K52.9 Cricopharyngeal achalasia K22.0 Pharyngeal dysphagia R13.13 Dysphagia type: pharyngeal phase Chronic diarrhea K52.9 Colon cancer screening Z12.11 Time Spent (min) 40 Comment 25 minutes spent with patient and additional 15 minutes spent reviewing her records
[2024-08-16 14:41] VITALS: BP 146/94; PULSE 102; O2SAT 95; BMI 17.2
--- OUTSIDE RECORDS SUMMARY | 2024-08-16 17:13 | XMS_ITS | Clinical Summary ---
Author Organization [facility] Facility Address [address] [place] [address] Care Team Providers Care Instant Potato Processor Name Role Phone Michel Dodd Primary Care Provider [phone] Social History Tobacco Use Types Packs/Day Years [...] patient's age to complete this topic Insurance [facility] [place] [address] [facility] MED[facility] Care Teams Instant Potato Processor Relationship Specialty Start Date End Date Michel Dodd PA [address] [facility], [address] [place] [address] PCP - General Physician Assistant Film Editor 02/24/23
== END 2024-08-16 15:00 | disposition home or self-care (01) ==
PROVIDERS: PCP Physician Assistant; Visit Provider Nurse Practitioner Family
DX: K21.9 Gastro-esophageal reflux disease without esophagitis (principal); R14.0 Abdominal distension (gaseous); K52.9 Noninfective gastroenteritis and colitis, unspecified; K22.0 Achalasia of cardia; R13.13 Dysphagia, pharyngeal phase
CPT/HCPCS: 99214; G2211

== ENCOUNTER → 2024-08-16 14:26 | Outpatient (BNVA) | payer MEDICARE, SELFPAY | PROVIDERS: PCP Physician Assistant; Visit Provider Nurse Practitioner Family | DX: Z12.11 Encounter for screening for malignant neoplasm of colon (principal); K21.9 Gastro-esophageal reflux disease without esophagitis; K52.9 Noninfective gastroenteritis and colitis, unspecified; K22.0 Achalasia of cardia; R14.0 Abdominal distension (gaseous); R13.13 Dysphagia, pharyngeal phase | CPT/HCPCS: 99212 ==

== ENCOUNTER 2024-10-04 10:48 | Outpatient (AMB) | payer MEDICARE, SELFPAY ==
--- OUTSIDE RECORDS SUMMARY | 2024-10-04 10:51 | XMS_ITS | Clinical Summary ---
Author Organization [facility] Facility Address [address] [place] [address] Care Team Providers Care Newspaper Vendor Name Role Phone Michel Dodd Primary Care Provider [phone] Social History Tobacco Use Types Packs/Day Years [...] Colorectal Cancer Screening: Sigmoidoscopy 02/10/2004 Pneumococcal Vaccine: 50+ Ye ars (2 of 2 - PCV) 01/30/2021 01/31/2020 Influenza Vaccine (Season Ended) 2025 Hepatitis B Vaccine Aged Out No longe r eligible based on patient's age to complete this topic Insurance [facility] Medicare [facility] Medicare Care Teams Newspaper Vendor Relationship Specialty Start Date End Date Michel Dodd PA [address] [facility], [address] [place] [address] PCP - General Physician Physical Education Instructor 02/24/23
--- NOTE | 2024-10-04 10:53 | MHC.PC.OV ---
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: No Accompanied by: Self / Same As Patient Allergies cat dander Allergy (Intermediate, Verified 10/04/24 11:16) Itchy Eyes/nasal congestion morphine Allergy (Intermediate, Verified 10/04/24 11:16) Flushing-facial Seasonal Allergies Allergy (Intermediate, Verified 10/04/24 11:16) Itchy Eyes Medication List - Last Reconciled 10/04/24 by Michel Dodd PA-C acetaminophen 650 mg (2 x 325 mg) PO Q6H PRN 30 days albuterol sulfate 90 mcg/actuation 1 puff inhalation QID PRN albuterol sulfate 2.5 mg (3 mL) inhalation Q6H PRN 30 days alendronate mg PO aspirin 325 mg PO DAILY PRN atorvastatin 10 mg PO DAILY back brace As directed baclofen 10 mg PO BID PRN 30 days blood pressure test kit-small As directed cholecalciferol (vitamin D3) 50 mcg PO DAILY cyclobenzaprine 5 mg PO BID PRN 15 days ipratropium-albuterol 0.5 mg-3 mg(2.5 mg base)/3 mL 3 mL inhalation BID PRN lansoprazole 30 mg PO DAILY lorazepam 0.5 mg PO DAILY PRN 4 days magnesium oxide 400 mg PO DAILY 30 days metoprolol succinate ER 25 mg PO DAILY montelukast 10 mg PO DAILY multivitamin 1 tab PO DAILY omeprazole 40 mg PO DAILY ondansetron HCl 4 mg PO Q8H PRN 7 days oxybutynin chloride ER 5 mg PO DAILY 90 days sodium polystyrene sulfonate 15 grams PO .once per week 4 weeks Tobacco use date assessed: 07/06/24 Fall risk assessment: No Falls in past year Last assessed Fall Risk: 10/04/24 Dental Screening Dental Screen Date: 07/06/24 HPI f/u hypertension, GI issues HPI Details Patient is a 69-year-old female here today for a follow-up visit. Patient has a past medical history significant for hyperlipidemia, carotid stenosis, COPD, tobacco dependency, hypertension. Irritable bowel syndrome: -- > chronic gastrointestinal symptoms primarily attributed to Irritable Bowel Syndrome (IBS). She reports ongoing nausea, frequent bowel movements, and notable abdominal distension mimicking late-stage . Antibiotic treatment has previously reduced her symptoms slightly, but the distension persists, causing significant discomfort. She does continue on PPI therapy (omeprazole 40 mg) which does report help, also does ondansetron for nausea which is helpful for her nausea. The patient has not had a colonoscopy in over two decades, missing a scheduled procedure due to logistical issues. This, coupled with a history of diverticulosis indicated by past CT scans, adds to the need for reassessment through endoscopy. She also reports frequent urination, associated with previous bladder function concerns, despite being on oxybutynin. Concurrent seasonal allergy symptoms further exacerbate her overall health issues Hypertension: Patient's blood pressure acceptable today in office. She is concerned about amlodipine as she feels it is causing her blood pressure to be too low. Has discontinued amlodipine. Continues on lisinopril and metoprolol. .. .. Lumbar spine disease: Patient is followed by [place] pain management and is considering lumbar vertebral surgery. She understand she needs to quit smoking to be able to heal well after surgery. Has had vertebral fractures in the past. [facility] Medical History Carotid artery occlusion GERD (gastroesophageal reflux disease) Cachexia Nasal sinus congestion Cricopharyngeal achalasia Spinal stenosis COPD (chronic obstructive pulmonary disease) Acute respiratory failure with hypoxia Femoral neck fracture JANAY (generalized anxiety disorder) IBS (irritable bowel syndrome) MDD (major depressive disorder) Pulmonary nodule Current smoker HTN (hypertension) Surgical History History of third molar tooth extraction, class I edentulism Hx of bilateral cataract extraction History of total left hip arthroplasty Hx of colonoscopy History of esophagogastroduodenoscopy (EGD) History of cervical discectomy Family History Father Lung cancer Brain cancer Mother CVD (cardiovascular disease) Breast cancer Son In good health Brother In good health Social History Household Members: None Household Members Other:: self Housing: House Housing Other:: upper level of 2 family home-brother lives on lower level Are you a primary managed care nurse to a significant other at home: No Do you presently have visiting nurse or other home services: No Alcohol intake: current Alcohol intake frequency: a few times a month Patient Tobacco Use Status: Current everyday Tobacco user Tobacco use type: Cigarette Cigarette Packs Per Day: 1 Cigarettes Per Day: 20 Years Smoked: 38 e-Cigarette/Vaping Use: Never Used Second Hand Smoke Exposure: Yes Advance Directives Date on File: 10/21/22 service: No Current occupational status: retired Cognitive needs: No Hearing needs: No Vision needs: No Questionnaire Thrive Questionnaire Date Thrive assessed: 07/06/24 I am a: Parent/Caregiver What is your living situation today?: I choose not to answer this question Within the past 12 months, did the food you bought not last and you didn't have the money to get more?: I choose not to answer this question Within the past 12 months, did you worry whether your food would run out before you got money to buy more?: I choose not to answer this question Do you have trouble paying for medicines?: Yes Do you have trouble getting transportation to medical appointments?: I choose not to answer this question Do you have trouble paying your heating and electricity bill?: I choose not to answer this question Do you have trouble taking care of your child, family member or friend?: I choose not to answer this question Do you have trouble with day-to-day activities such as bathing, preparing meals, shopping, managing finances, etc.?: Yes Are you currently unemployed and looking for a job?: I choose not to answer this question Are you interested in more education?: No Please select the resources that you would like help with: None Currently or been in a relationship where the following occur: No concerns reported THRIVE Score: 0 AUDIT C Alcohol Use Questionnaire (AUDIT-C) 2. How many drinks containing alcohol do you have on a typical day when you are drinking?: 1 or 2 3. How often do you have six or more drinks on one occasion?: Never Total Score: 0 JANAY-7 AMB Questionnaire JANAY-7 Date JANAY - 7 assessed: 07/06/24 Source: Developed by Drs. Sal Porras, Alma Marks, Amado Kaur and colleagues, with an educational katya from [employer]. Review of Systems Const Denies headache(s) Eyes Denies loss of vision ENT Denies vertigo, Denies dizziness, Denies headache(s) and Denies sore throat Card Denies chest pain, Denies leg edema and Denies lightheadedness Resp Denies cough, Denies hemoptysis and Denies wheezing GI Reports abdominal pain, Denies melena, Reports bloating, Denies constipation, Reports dyspepsia, Reports heartburn, Reports diarrhea, Reports loose stools and Denies vomiting Denies urinary frequency, Denies dysuria and Denies urinary urgency Musc Denies arthralgias, Denies joint swelling, Denies numbness and Denies tingling Neuro Denies Abnormal speech present, Denies behavioral changes, Denies vertigo, Denies dizziness, Denies headache(s), Denies loss of vision, Denies memory loss, Denies numbness and Denies tingling Psych Denies anxiety, Denies behavioral changes, Denies depression, Denies memory loss and Denies panic attacks Jefe/Lymph Denies easy bleeding and Denies easy bruising Aller/Immun Denies wheezing Physical exam (Primary Care) Vital Signs: Last Vital Signs Temp 97.1 F 10/04/24 10:58 Pulse 110 H 10/04/24 10:58 BP 122/80 10/04/24 10:58 Pulse Ox 93 10/04/24 10:58 Oxygen Delivery Method Room Air 10/04/24 10:58 BMI result Body Mass Index 17.0 BMI Assessment/Plan discussion: Low BMI Low, Plan discussed: lifestyle, increase calorie intake and dietary Tobacco/Smoking Status: Tobacco use Status Tobacco use date assessed 07/06/24 10/04/24 10:53 Patient Tobacco Use Status Current everyday Tobacco 10/04/24 10:53 Tobacco use type Cigarette 10/04/24 10:53 e-Cigarette/Vaping Use Never Used 10/04/24 10:53 Are you ready to quit: No Tobacco cessation counseling provided: Yes Items discussed: Nicotine replacement Relapse Prevention: discussed the importance of a supportive environment, discussed negative mood or depression after quitting, weight gain after smoking is common and discussed dietary, exercise and/or lifestyle changes Number of minutes spent counselin CPT code: 28368 - 4-10 Minutes Thrive Assessment: Date of Thrive Assessment Date Thrive assessed 07/06/24 10/04/24 10:53 Currently or been in a relationship where the following occur: No concerns reported Const General: healthy appearing, no acute distress, alert and awake Nutritional Appearance: well nourished Orientation/consciousness: oriented to person, oriented to place and oriented to time HENMT Ears: TM's normal bilaterally General nose exam: Normal nasal mucous membranes and turbinates present Eyes Conjunctivae: conjunctivae normal Sclerae: sclerae normal Pupils: Equal, round and reactive pupils present Neck Neck: Yes no lymphadenopathy and Yes no JVD Thyroid: Thyroid normal Carotids: no bruits Resp Effort & Inspection: normal respiratory effort and not tachypneic Auscultation: no crackles, no rales, no rhonchi and no wheezes Cardio Rate: regular rate Rhythm: regular rhythm Heart sounds: no murmurs and normal S1 and S2 GI Palpation (GI): Soft to palpation, nontender, no hepatomegaly and no splenomegaly Auscultation: normal bowel sounds Skin General skin exam: no rashes or lesions noted and dry skin Neuro General: oriented to person, oriented to place and oriented to time Cranial nerves: Yes Equal, round and reactive pupils present Speech: No Abnormal speech present Gait exam (Neuro): Normal gait present Motor exam (neuro): no tremor noted Extrem Right upper extremity: full ROM Left upper extremity: full ROM Right lower extremity: full ROM; no edema Left lower extremity: full ROM; no edema Psych Mental Status: mental status grossly normal Speech and movement: Normal speech and movement present Affect: normal affect Attitude: cooperative Thought process: Normal thought process present Coding Level of Care Code Est Pt Level 4 (91747) Diagnoses Abdominal distension R14.0 Tobacco dependence F17.200 Gastroesophageal reflux disease without esophagitis K21.9 Esophagitis presence: without esophagitis Spastic bladder N32.89 Centrilobular emphysema J43.2 COPD type: emphysema Emphysema type: centrilobular Additional Codes Vital Signs *Quality* - CPT code: 96379 - 4-10 Minutes ([id number]) Assessment & Plan Assessment & Plan (1) Abdominal distension: Code(s): R14.0 - Abdominal distension (gaseous) Category: Medical Plan: I discussed with the patient her ongoing gastrointestinal symptoms and the need for further evaluation through colonoscopy and endoscopy, acknowledging past scheduling issues. I emphasized the importance of these diagnostics to ascertain any possible complications beyond IBS or diverticulosis, such as blockages or polyps present after 20 years. (2) Tobacco dependence: Code(s): F17.200 - Nicotine dependence, unspecified, uncomplicated Category: Medical Plan: Patient does understand she needs to quit smoking though unfortunately has found it very difficult to do so. Have offered nicotine replacement though patient declines. She reports she has cut down to half a pack of cigarettes per day. Not interested in stopping smoking at this time (3) GERD (gastroesophageal reflux disease): Code(s): K21.9 - Gastro-esophageal reflux disease without esophagitis Category: Medical Qualifiers: Esophagitis presence: without esophagitis Qualified Code(s): K21.9 - Gastro-esophageal reflux disease without esophagitis Plan: Continues with pantoprazole though has medication on an empty stomach in the morning. She will try to start using pantoprazole in the morning to help the effectiveness of the med. (4) Spastic bladder: Code(s): N32.89 - Other specified disorders of bladder Category: Medical Plan: Patient reports urinary urgency and frequency for many years. Unclear if this is spastic bladder. Will try for ultrasound and bladder to evaluate for any bladder stones. She does not have any particular glycemic issues.. Will increase her oxybutynin dose to 10 mg to see if we can help reduce her urinary frequency. (5) COPD (chronic obstructive pulmonary disease): Code(s): J44.9 - Chronic obstructive pulmonary disease, unspecified Category: Medical Qualifiers: COPD type: emphysema Emphysema type: centrilobular Qualified Code(s): J43.2 - Centrilobular emphysema Plan: Patient reports her pulmonary status has been fairly well stable. Unfortunately still smokes. She does have access to albuterol inhaler and albuterol solution to use as needed. Orders: Orders US bladder Today N32.89 - Other specified disorders of bladder Magnesium Today R14.0 - Abdominal distension (gaseous) Comprehensive Met. Panel Today R14.0 - Abdominal distension (gaseous) Complete Blood Count no Diff Today R14.0 - Abdominal distension (gaseous) Lipase Today R14.0 - Abdominal distension (gaseous) Phosphorus Today R14.0 - Abdominal distension (gaseous) Lipid Panel Today E78.5 - Hyperlipidemia, unspecified Medications: New oxybutynin chloride ER 10 mg PO DAILY 30 tabs 1RF 30 days N32.89 - Other specified disorders of bladder Refilled ondansetron HCl 4 mg PO Q8H PRN 21 tabs 0RF nausea and vomiting 7 days R14.0 - Abdominal distension (gaseous) Discontinued oxybutynin chloride ER Discontinued Reason: Doctor's Order 5 mg PO DAILY 90 days 90 tabs 1RF N32.89 - Other specified disorders of bladder lansoprazole Discontinued Reason: Doctor's Order 30 mg PO DAILY 30 caps 3RF K21.9 - Gastro-esophageal reflux disease without esophagitis
[2024-10-04 10:58] VITALS: BP 122/80; PULSE 110; TEMP 36.2; O2SAT 93; BMI 17.0
== END 2024-10-04 11:44 | disposition home or self-care (01) ==
LOC: HO.HMCH 10:49
PROVIDERS: PCP Physician Assistant; Visit Provider Physician Assistant
DX: R14.0 Abdominal distension (gaseous) (principal); J43.2 Centrilobular emphysema; F17.200 Nicotine dependence, unspecified, uncomplicated; K21.9 Gastro-esophageal reflux disease without esophagitis; N32.89 Other specified disorders of bladder

== ENCOUNTER → 2024-10-04 10:48 | Outpatient (BNVA) | payer MEDICARE, SELFPAY | PROVIDERS: PCP Physician Assistant; Visit Provider Physician Assistant | DX: I10 Essential (primary) hypertension (principal); E78.5 Hyperlipidemia, unspecified; J44.9 Chronic obstructive pulmonary disease, unspecified; K58.9 Irritable bowel syndrome, unspecified; R11.0 Nausea; R14.0 Abdominal distension (gaseous); K21.9 Gastro-esophageal reflux disease without esophagitis; N32.89 Other specified disorders of bladder; J43.2 Centrilobular emphysema; F17.210 Nicotine dependence, cigarettes, uncomplicated; Z71.6 Tobacco abuse counseling; Z79.899 Other long term (current) drug therapy | CPT/HCPCS: 99212 ==

== ENCOUNTER 2024-11-09 10:14 | Outpatient (REF) | payer MEDICARE, SELFPAY ==
[2024-11-09 11:28] LABS: Hematocrit 41.8 % (37.0-47.0); Hemoglobin 14.3 g/dl (12.0-16.0); Mean Corpuscular HGB Conc 34.2 g/dl (31.0-35.0); Mean Corpuscular Hemoglobin 35.7 pg (27.0-33.0); Mean Corpuscular Volume 104.2 fL (80.0-98.0); Mean Platelet Volume 9.3 fL (9.4-12.3); Platelet Count 268 X10*3/uL (160-400); Red Blood Count 4.01 X10*6/uL (4.20-5.50); Red Cell Distribution Width 14.8 % (11.0-16.0); White Blood Count 7.1 X10*3/uL (4.8-10.8)
[2024-11-09 12:14] LABS: Alanine Aminotransferase < 6 U/L (0-31); Albumin Level 3.4 g/dL (3.5-5.0); Alkaline Phosphatase 105 U/L (39-117); Anion Gap 14 (12-20); Aspartate Amino Transferase 25 U/L (5-31); Bilirubin Total 0.5 mg/dL (0.0-1.0); Blood Urea Nitrogen 15 mg/dL (9-16); C Reactive Protein 0.29 mg/dL (< or = 0.50); Calcium 9.1 mg/dL (8.4-10.2); Carbon Dioxide 28 mmol/L (22-29); Chloride 100 mmol/L (96-108); Cholesterol 181 mg/dL (<200); Estimated Glomerular Filt Rate > 60; Glucose Random 116 mg/dL (60-115); HDL Cholesterol 74 mg/dL (>40); LDL Cholesterol Calculated 92 mg/dL (<100); Lipase 12 U/L (8-78); Magnesium 1.4 mg/dL (1.6-2.6); Phosphorus 3.4 mg/dL (2.7-4.5); Potassium 4.5 mmol/L (3.3-5.1); Sodium 137 mmol/L (135-145); Total Protein 6.7 g/dL (6.5-8.0); Triglycerides 76 mg/dL (<150)
[2024-11-10 16:33] LABS: Transglutaminase IgA <1.0 U/mL
== END 2024-11-09 10:15 | disposition home or self-care (01) ==
LOC: HO.LAB 10:14
PROVIDERS: Absent Provider Physician Assistant; PCP Physician Assistant; Visit Provider Nurse Practitioner Family
DX: K21.9 Gastro-esophageal reflux disease without esophagitis (principal); R14.0 Abdominal distension (gaseous); E83.42 Hypomagnesemia; E78.5 Hyperlipidemia, unspecified; R10.9 Unspecified abdominal pain; K52.9 Noninfective gastroenteritis and colitis, unspecified; K22.0 Achalasia of cardia; R13.13 Dysphagia, pharyngeal phase; Z12.11 Encounter for screening for malignant neoplasm of colon
CPT/HCPCS: 36415; 80053; 80061; 83690; 83735; 84100; 85027; 86140; 86364; 99212

== ENCOUNTER 2024-11-09 10:14 | Outpatient (AMB) | payer MEDICARE, SELFPAY ==
--- NOTE | 2024-11-09 10:17 | A.OFFVIS_ITS ---
Vital Signs 11/09/24 10:18 Height 5 ft 4 in Weight 96 lb BMI 16.5 BP 156/100 H Blood Pressure Location Rt brachial Position Sitting Pulse 110 H Pulse Source Pulse Oximeter Pulse Oximetry (%) 91 L Oxygen Delivery Method Room Air Intake Visit Reasons: ibs Intake Note: ESTABLISHED PATIENT for GERD, IBS mgmt + Pre op (11/23). Labs cancelled? CC: C.O. nausea, diarrhea, severe bloating, and loss of appetite. Pt reports being placed on abx x2 by PCP which did provide some temporary relief. However, pt still experiencing intermittent sx. 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 Patient was encouraged to avoid dietary triggers in late night snacking. Eating smaller meals and more often. We have discussed that we will refer her to the blocker and sewer to help her with high calorie diet. In the meantime patient was encouraged to try low FODMAP diet to help her decrease bloating. List of food recommended as well as list of food to avoid given to patient. Message sent to Surgical scheduled to call patient and the procedure. Patient will be sent for upper endoscopy and colonoscopy. Will start her on lansoprazole 30 mg half an hour before breakfast. If will not work we will send her script for sucralfate all cholestyramine. 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 Patient was also encouraged to increase fiber. She will try to take dual action pre and probiotic. Increase fluid intake and activity. Patient will follow-up in our office in 2-3 months to discuss the prep and to re-evaluate. Message sent to Surgical schedules to book both endoscopy and colonoscopy for patient. Patient is agreeable to current plan of care and verbalizes understanding of instructions. She was given the opportunity to ask questions and all questions answered. ? Thank you for allowing me to participate in her care Orders Referrals [facility] [employer] Referral R63.4 Medications New lansoprazole 30 mg PO DAILY 30 caps 3RF K21.9 Discontinued omeprazole Discontinued Reason: Doctor's Order 40 mg PO DAILY 90 days 90 caps 1RF K21.9 TODAY'S VISIT Patient is here today for follow-up and to discuss going for endoscopy and colonoscopy. Patient reports that she is currently taking omeprazole. Continues to have low appetite. Worsening IBS symptoms as patient is going for multiple procedures. She has not putting up her back surgery for some time. Just had carotid endarterectomy. Her colonoscopy and endoscopy is scheduled for November 23. Patient denies melena, hematochezia. Has not made an appointment with dietitian yet. Continues to have epigastric pain postprandially as well as dyspepsia with occasional dysphagia. Patient switched back to omeprazole as reports that it was the most effective. Patient denies any issues with anesthesia in the past. No history of sleep apnea. Patient is on aspirin. [facility] Medical History GERD (gastroesophageal reflux disease) Cachexia Nasal sinus congestion Cricopharyngeal achalasia Spinal stenosis COPD (chronic obstructive pulmonary disease) Acute respiratory failure with hypoxia Femoral neck fracture JANAY (generalized anxiety disorder) IBS (irritable bowel syndrome) MDD (major depressive disorder) Pulmonary nodule Current smoker HTN (hypertension) Surgical History Carotid artery occlusion History of third molar tooth extraction, class I edentulism Hx of bilateral cataract extraction History of total left hip arthroplasty Hx of colonoscopy History of esophagogastroduodenoscopy (EGD) History of cervical discectomy Family History Father Lung cancer Brain cancer Mother CVD (cardiovascular disease) Breast cancer Son In good health Brother In good health Social History Household Members: None Household Members Other:: self Housing: House Housing Other:: upper level of 2 family home-brother lives on lower level Are you a primary care assistant to a significant other at home: No Do you presently have visiting nurse or other home services: No Alcohol intake: current Alcohol intake frequency: a few times a month Patient Tobacco Use Status: Current everyday Tobacco user Tobacco use type: Cigarette Cigarette Packs Per Day: 1 Cigarettes Per Day: 20 Years Smoked: 38 e-Cigarette/Vaping Use: Never Used Second Hand Smoke Exposure: Yes Advance Directives Date on File: 10/21/22 service: No Current occupational status: retired Cognitive needs: No Hearing needs: No Vision needs: No Review of Systems Const Denies weight gain and Denies weight loss ENT Reports no additional complaints, Denies dysphagia and Denies odynophagia Card Reports no additional complaints Resp Reports no additional complaints GI Denies abdominal pain, Denies belching, Denies melena, Reports bloating, Denies change in bowel habits, Denies dysphagia, Denies excessive flatus, Denies dyspepsia, Reports heartburn, Denies diarrhea, Reports loose stools, Denies nausea, Denies odynophagia and Denies vomiting Reports no additional complaints Musc Reports no additional complaints Neuro Reports no additional complaints Psych Reports no additional complaints Endo Reports no additional complaints Physical Exam Const General: no acute distress Nutritional Appearance: cachectic and underweight Orientation/consciousness: patient oriented x3 Resp Effort & Inspection: normal respiratory effort, able to speak in complete sentences, no tracheal deviation and symmetric chest movement Auscultation: clear to auscultation bilaterally Cardio Rate: regular rate GI Inspection: No distended Palpation (GI): Soft to palpation, not firm, nontender and No hepatosplenomegaly present Auscultation: normal bowel sounds General: Yes no CVA tenderness Back/Spine/Pelvis Back: no CVA tenderness Skin General skin exam: elasticity normal, turgor normal and dry skin Neuro General: patient oriented x3 Psych Appearance: grossly normal Mental Status: mental status grossly normal Assessment & Plan Assessment & Plan (1) GERD (gastroesophageal reflux disease): Code(s): K21.9 - Gastro-esophageal reflux disease without esophagitis Category: Medical Qualifiers: Esophagitis presence: without esophagitis Qualified Code(s): K21.9 - Gastro-esophageal reflux disease without esophagitis (2) Abdominal distension: Code(s): R14.0 - Abdominal distension (gaseous) Category: Medical (3) Colitis: Code(s): K52.9 - Noninfective gastroenteritis and colitis, unspecified Category: Medical (4) Cricopharyngeal achalasia: Code(s): K22.0 - Achalasia of cardia Category: Medical (5) Dysphagia: Code(s): R13.10 - Dysphagia, unspecified Category: Medical Qualifiers: Dysphagia type: pharyngeal phase Qualified Code(s): R13.13 - Dysphagia, pharyngeal phase (6) Chronic diarrhea: Code(s): K52.9 - Noninfective gastroenteritis and colitis, unspecified Category: Medical (7) Colon cancer screening: Code(s): Z12.11 - Encounter for screening for malignant neoplasm of colon Category: Medical Plan Will check transglutaminase, lipase, CRP. Patient was encouraged to avoid dietary triggers. Patient will continue taking omeprazole in the morning before breakfast and will take sucralfate twice a day in the afternoon and at bedtime. What to expect before during and after procedure discussed with patient. Stressed the importance of clear liquid diet and good bowel prep day before procedure. I will see her after the procedure, sooner on as needed basis. Patient is agreeable to this plan and verbalizes understanding of instructions. She was given the opportunity to ask questions and all questions answered. Thank you for allowing me to participate in her care Orders: Orders Transglutaminase IgA Today R10.9 - Unspecified abdominal pain Lipase Today R10.9 - Unspecified abdominal pain C Reactive Protein Today K58.9 - Irritable bowel syndrome, unspecified Medications: New bisacodyl (Dulcolax (bisacodyl)) take 4 tabs at noon the day before your colonoscopy 20 mg (4 x 5 mg) PO ONCE 1 day 4 tabs 0RF constipation Z12.11 - Encounter for screening for malignant neoplasm of colon polyethylene glycol 3350 (Miralax) As directed by gastroenterology department at [facility] 238 grams PO ONCE 238 grams 0RF Z12.11 - Encounter for screening for malignant neoplasm of colon sucralfate Please take it at 2 pm and at bedtime 10 mL PO BID 400 mL 3RF K21.9 - Gastro-esophageal reflux disease without esophagitis omeprazole 40 mg PO DAILY 30 caps 3RF Coding Level of Care Code Est Pt Level 4 (56362) Complex EM visit Add On G2211 Diagnoses Gastroesophageal reflux disease without esophagitis K21.9 Esophagitis presence: without esophagitis Abdominal distension R14.0 Colitis K52.9 Cricopharyngeal achalasia K22.0 Pharyngeal dysphagia R13.13 Dysphagia type: pharyngeal phase Chronic diarrhea K52.9 Colon cancer screening Z12.11 Time Spent (min) 35 Comment 25 minutes spent with patient and additional 10 minutes spent reviewing her records
[2024-11-09 10:18] VITALS: BP 156/100; PULSE 110; O2SAT 91; BMI 16.5
--- OUTSIDE RECORDS SUMMARY | 2024-11-09 10:59 | XMS_ITS | Clinical Summary ---
Author Organization [facility] Facility Address [address] [place] [address] Care Team Providers Care Landscape Architect Name Role Phone Michel Dodd Primary Care Provider [phone] Social History Tobacco Use Types Packs/Day Years [...] patient's age to complete this topic Insurance [facility] Medicare [facility] Medicare Care Teams Landscape Architect Relationship Specialty Start Date End Date Michel Dodd PA [address] [facility], [address] [place] [address] PCP - General Physician Ssds Mk 2 Advanced Operator 02/24/23
== END 2024-11-09 11:02 | disposition home or self-care (01) ==
LOC: HO.HGI 10:15
PROVIDERS: PCP Physician Assistant; Visit Provider Nurse Practitioner Family
DX: K21.9 Gastro-esophageal reflux disease without esophagitis (principal); R14.0 Abdominal distension (gaseous); K52.9 Noninfective gastroenteritis and colitis, unspecified; K22.0 Achalasia of cardia; R13.13 Dysphagia, pharyngeal phase
CPT/HCPCS: 99214; G2211

== ENCOUNTER 2024-11-16 10:09 | Outpatient (REF) | payer MEDICARE, SELFPAY ==
--- NOTE | ~2024-11-16 | US_ITS ---
CLINICAL HISTORY: N32.89 - Other specified disorders of bladder US Urinary Bladder Comparison: CT/SR - CT ABDOMEN PELVIS W IV CON - 06/29/24 14:53 EST Findings: Examination is limited by the partially distended bladder. No bladder mass. Small bladder diverticulum. Prevoid volume: 65 mLPostvoid volume: 76 mL Ureteral jets are not visualized bilaterally. IMPRESSION: Postvoid urinary retention of the bladder. Small bladder diverticulum. This document has been electronically signed by: Israel Oakes MD on 11/16/2024 15:41:46
--- OUTSIDE RECORDS SUMMARY | 2024-11-16 11:40 | XMS_ITS | Clinical Summary ---
Author Organization [facility] Facility Address [address] [place] [address] Care Team Providers Care Face Burler Name Role Phone Michel Dodd Primary Care Provider [phone] Social History Tobacco Use Types Packs/Day Years [...] to complete this topic Insurance [facility] Medicare [facility] Medicare Care Teams Face Burler Relationship Specialty Start Date End Date Michel Dodd PA [address] [facility], [address] [place] [address] PCP - General Physician Swatch Checker 02/24/23
== END 2024-11-16 10:10 | disposition home or self-care (01) ==
LOC: HO.US 10:09
PROVIDERS: PCP Physician Assistant; Visit Provider Physician Assistant
DX: N32.89 Other specified disorders of bladder (principal)
CPT/HCPCS: 76857

== ENCOUNTER → 2024-11-16 10:12 | Outpatient (BNV) | payer MEDICARE, SELFPAY | PROVIDERS: PCP Physician Assistant; Visit Provider Nuclear Medicine | DX: R39.14 Feeling of incomplete bladder emptying (principal) | CPT/HCPCS: 76857 ==

== ENCOUNTER 2024-11-23 07:56 | Day surgery (SDC) | payer MEDICARE, SELFPAY ==
--- OUTSIDE RECORDS SUMMARY | 2024-10-15 07:01 | XMS_ITS | Clinical Summary ---
Author Organization [facility] Facility Address [address] [place] [address] Care Team Providers Care Correspondence Analyst Name Role Phone Michel Dodd Primary Care Provider [phone] Social History Tobacco Use Types Packs/Day Years [...] patient's age to complete this topic Insurance [facility] [phone] [facility] Medicare Care Teams Correspondence Analyst Relationship Specialty Start Date End Date Michel Dodd PA [address] [facility], [address] [place] [address] PCP - General Physician Fitness Sales Consultant 02/24/23
[2024-11-19 13:23] VITALS: BMI 16.5
--- NOTE | 2024-11-22 09:56 | HO.ANESPROP2 ---
Documented by User: Chula Hanna NP 11/22/24 09:58 HPI - Anesthesia Eval Consult details Narrative: 69yo F for Upper Endoscopy and Colonoscopy s/p carotid 2023 [facility] Active Problems Active Problems: All Active Problems Spastic bladder (Acute) Cholelithiasis (Acute) Abdominal distension (Acute) Colitis (Acute) Multiple pulmonary nodules (Acute) Dysfunction of the multifidus muscle of lumbar region (Acute) HLD (hyperlipidemia) (Acute) Bilateral carotid artery disease (Acute) Status post carotid endarterectomy (Acute) Lower extremity edema (Acute) Encounter for preoperative pulmonary examination (Acute) Elevated TSH (Acute) Cricopharyngeal achalasia (Acute) Leg pain (Acute) Bilateral carotid artery stenosis (Acute) Carotid stenosis, right (Acute) Carotid bruit (Acute) Dysphagia (Acute) COPD exacerbation (Acute) Hypoxia (Acute) Vertebrogenic low back pain (Acute) Spinal stenosis of lumbar region with neurogenic claudication (Acute) Age related osteoporosis (Acute) History of left hip hemiarthroplasty (Acute) Postural hypotension (Acute) Hypomagnesemia (Acute) Hyperkalemia (Acute) Hyponatremia (Acute) Postmenopausal (Acute) L1 vertebral fracture (Acute) Swelling of both lower extremities (Acute) Compression fracture of L1 lumbar vertebra (Acute) Elevated erythrocyte sedimentation rate (Acute) Elevated C-reactive protein (CRP) (Acute) Failure to thrive in adult (Acute) Chronic diarrhea (Acute) Elevated fasting blood sugar (Acute) Macrocytic anemia (Acute) Cachexia (Acute) Lumbar spondylosis (Acute) Sinus infection (Acute) Breast cancer screening (Acute) Colon cancer screening (Acute) Low weight (Acute) Tobacco dependence (Acute) Annual physical exam (Acute) Chronic sinusitis (Acute) Allergic asthma (Acute) Allergic rhinitis (Acute) Lumbar spine pain (Acute) GERD (gastroesophageal reflux disease) (Acute) COPD (chronic obstructive pulmonary disease) (Acute) HTN (hypertension) (Acute) Past Medical History Medical History Cachexia Nasal sinus congestion Cricopharyngeal achalasia Spinal stenosis COPD (chronic obstructive pulmonary disease) Acute respiratory failure with hypoxia Femoral neck fracture GERD (gastroesophageal reflux disease) JANAY (generalized anxiety disorder) IBS (irritable bowel syndrome) MDD (major depressive disorder) Pulmonary nodule Current smoker HTN (hypertension) Family History Family History Father Lung cancer Brain cancer Mother CVD (cardiovascular disease) Breast cancer Son In good health Brother In good health Family history of problems with anesthesia: No Surgical History Surgical History (Updated 11/19/24 @ 13:20 by Michelle Travis RN) History of carotid endarterectomy History of third molar tooth extraction, class I edentulism Hx of bilateral cataract extraction History of total left hip arthroplasty Hx of colonoscopy History of esophagogastroduodenoscopy (EGD) History of cervical discectomy History of Problems with Anesthesia: No Social History Social History Household Members: None Household Members Other:: brother lives downstairs Housing: House Housing Other:: upper level of 2 family home-brother lives on lower level Are you a primary child care center administrator to a significant other at home: No Do you presently have visiting nurse or other home services: No Alcohol intake: current Alcohol intake frequency: a few times a month Patient Tobacco Use Status: Current everyday Tobacco user Tobacco use type: Cigarette Cigarette Packs Per Day: 1 Cigarettes Per Day: 20 Years Smoked: 38 Smoked in Last 30 Days: Yes e-Cigarette/Vaping Use: Never Used Patient Interested in Nicotine Replacement: No Second Hand Smoke Exposure: Yes Have you been hit, kicked, punched, or otherwise hurt by someone within the past year? If so, by whom?: No Are you DNR?: No Advance Directives: No Advance Directives Information Provided: Yes Advance Directives Date on File: 10/21/22 Poor oral hygiene: No service: No Current occupational status: retired Cognitive needs: No Hearing needs: No Vision needs: No Meds Allergies Allergy/AdvReac Type Severity Reaction Status Date / Time cat dander Allergy Intermediate Itchy Verified 11/09/24 10:24 Eyes/nasal congestion morphine Allergy Intermediate Flushing-fa Verified 11/09/24 10:24 cial Seasonal Allergies Allergy Intermediate Itchy Eyes Verified 11/09/24 10:24 Home Medications ?Medication ?Instructions ?Recorded ?Confirmed ?Last Taken ?Type multivitamin 1 tab PO DAILY 10/21/22 11/19/24 02/22/24 History aspirin 325 mg tablet 325 mg PO DAILY PRN Pain 12/04/23 11/19/24 02/22/24 History alendronate 70 mg tablet 70 mg PO QWEEK 07/06/24 11/19/24 Unknown History Exam Height,Weight and Vital Signs: Height 5 ft 4 in Weight 43.545 kg Pertinent Lab Results Pertinent Lab Results: Laboratory Tests 11/09/24 11:08 WBC 7.1 Hgb 14.3 Hct 41.8 Plt Count 268 Sodium 137 Potassium 4.5 Chloride 100 Carbon Dioxide 28 BUN 15 Creatinine 0.78 Assessment and Plan Assessment Anesthesia Assessment: Chart Reviewed Final Anesthetic Review Family History of Problems with Anesthesia: No History of Problems with Anesthesia: No Documented by User: Bruno Grewal MD 11/23/24 12:19 [facility] Past Medical History Medical History Cachexia Nasal sinus congestion Cricopharyngeal achalasia Spinal stenosis COPD (chronic obstructive pulmonary disease) Acute respiratory failure with hypoxia Femoral neck fracture GERD (gastroesophageal reflux disease) JANAY (generalized anxiety disorder) IBS (irritable bowel syndrome) MDD (major depressive disorder) Pulmonary nodule Current smoker HTN (hypertension) Family History Family History Father Lung cancer Brain cancer Mother CVD (cardiovascular disease) Breast cancer Son In good health Brother In good health Surgical History Surgical History (Updated 11/19/24 @ 13:20 by Michelle Travis RN) History of carotid endarterectomy History of third molar tooth extraction, class I edentulism Hx of bilateral cataract extraction History of total left hip arthroplasty Hx of colonoscopy History of esophagogastroduodenoscopy (EGD) History of cervical discectomy Social History Social History Household Members: None Household Members Other:: brother lives downstairs Housing: House Housing Other:: upper level of 2 family home-brother lives on lower level Are you a primary child care center administrator to a significant other at home: No Do you presently have visiting nurse or other home services: No Alcohol intake: current Alcohol intake frequency: a few times a month Patient Tobacco Use Status: Current everyday Tobacco user Tobacco use type: Cigarette Cigarette Packs Per Day: 1 Cigarettes Per Day: 20 Years Smoked: 38 Smoked in Last 30 Days: Yes e-Cigarette/Vaping Use: Never Used Patient Interested in Nicotine Replacement: No Second Hand Smoke Exposure: Yes Have you been hit, kicked, punched, or otherwise hurt by someone within the past year? If so, by whom?: No Are you DNR?: No Advance Directives: No Advance Directives Information Provided: Yes Advance Directives Date on File: 10/21/22 Poor oral hygiene: No service: No Current occupational status: retired Cognitive needs: No Hearing needs: No Vision needs: No Meds Allergies Allergy/AdvReac Type Severity Reaction Status Date / Time cat dander Allergy Intermediate Itchy Verified 11/09/24 10:24 Eyes/nasal congestion morphine Allergy Intermediate Flushing-fa Verified 11/09/24 10:24 cial Seasonal Allergies Allergy Intermediate Itchy Eyes Verified 11/09/24 10:24 Home Medications ?Medication ?Instructions ?Recorded ?Confirmed ?Last Taken ?Type multivitamin 1 tab PO DAILY 10/21/22 11/19/24 02/22/24 History aspirin 325 mg tablet 325 mg PO DAILY PRN Pain 12/04/23 11/19/24 02/22/24 History alendronate 70 mg tablet 70 mg PO QWEEK 07/06/24 11/19/24 Unknown History Exam Airway Mallampati Class: II TM Dist: >3cm Neck ROM: Full Loose/Missing/Broken Teeth: Yes Assessment and Plan Assessment Anesthesia Assessment: Anesthesia Plan Discussed Final Anesthetic Review NPO: Yes ASA Class: III Final Preanesthetic Review: No Changes in Pt Med Stat, Meds/Allgs Chart Reviewed, Consent Obtained/Reviewed and Anes Risks/Benef Reviewed Patient Risk: Intermediate Procedure Risk: Low Anesthetic Plan Anesthetic Plan: MAC: Disposition: Standard PACU
[2024-11-23 08:44] VITALS: BMI 16.5
--- NOTE | 2024-11-23 08:46 | MHC.SHP ---
Pre-Procedural Eval Section A - 24 Hr Update-Section A only Date of Service: 11/23/24 Section B - Complete if H&P > 30 days Chief Complaint: gerd,screening Relevant Family History (Specify if Yes): No Relevant Social History: Tobacco Use Present Medications: see Short Stay Collaborative assessment Medical History: Significant History (Cachexia Nasal sinus congestion Cricopharyngeal achalasia Spinal stenosis COPD (chronic obstructive pulmonary disease) Acute respiratory failure with hypoxia Femoral neck fracture GERD (gastroesophageal reflux disease) JANAY (generalized anxiety disorder) IBS (irritable bowel syndrome) MDD (major depr) History of Previous Operations: Relevant previous surgery/procedure and date(s) (History of carotid endarterectomy History of third molar tooth extraction, class I edentulism Hx of bilateral cataract extraction History of total left hip arthroplasty Hx of colonoscopy History of esophagogastroduodenoscopy (EGD) History of cervical discectomy) Allergies: Allergies Allergy/AdvReac Type Severity Reaction Status Date / Time cat dander Allergy Intermediate Itchy Verified 11/09/24 10:24 Eyes/nasal congestion morphine Allergy Intermediate Flushing-fa Verified 11/09/24 10:24 cial Seasonal Allergies Allergy Intermediate Itchy Eyes Verified 11/09/24 10:24 Review of Systems Sugical H&P ROS: Negative: Constitution, Cardiovascular, Respiratory, Neurological, Psychiatric, Hem-Onc, Allergic/Immunologic, Gastrointestinal, Genitourinary, Musculoskeletal, Integumentary, Endocrine and Eyes/Ears/Nose/Throat Exam Surgical H&P Exam: Normal: HEENT, Normal: Heart, Normal: Lungs, Normal: Extremities, Normal: Abdomen, Normal: Skin and Normal: Neurological Plan Diagnosis/Plan: Unchanged I have reviewed the history and physical and performed a pertinent physical examination on my patient. No changes have occurred unless specified. Time Spent With Patient Time: Total time managing care of this patient today ____ minutes.
[2024-11-23] MEDS: Lactated Ringers 1,000 ML 100 ML IVCONT (09:02)
[2024-11-23] MEDS: Albuterol Sulfate (0.083%) 2.5 MG/3 ML VIAL.NEB INHALE (09:02)
[2024-11-23 09:12] LABS: Magnesium 1.2 mg/dL (1.6-2.6)
[2024-11-23 09:13] VITALS: BP 166/82; PULSE 106; RESP 18; TEMP 36.6; O2SAT 94
[2024-11-23] MEDS: Magnesium Sulfate/D5W 1 GM/100 ML PIGGYBACK IV (09:55)
--- NOTE | 2024-11-23 11:54 | PC.NURSE ---
dr. iglesias and dr. lopez updated regarding critical magnesium lab received by mirian page. magnesium ordered by dr. iglesias and completed prior to patient going into endoscopy suite.
--- NOTE | 2024-11-23 11:56 | P.OPN-COLO_ITS ---
Colonoscopy Operative Note Operative Note Date of Service: 11/23/24 Narrative: Operative Information Procedure Description: EGD, Colonoscopy Indication: dysphagia, screening Anesthesia: MAC FLEXIBLE TRANSORAL UPPER GASTROINTESTINAL ENDOSCOPY AND COLONOSCOPY PROCEDURE NOTE UPPER ENDOSCOPY Consent: Indications for the procedure and potential complications of bleeding, perforation, reaction to medications and missed diagnosis were discussed with the patient and informed consent was obtained. Instrument: Olympus GIF H 190 J mid size upper endoscope Monitoring: Vital signs and clinical assessment, continuous EKG monitoring, Pulse oximetry, Carbon Dioxide monitoring and blood pressure monitoring were done throughout the procedure. Procedure: The patient was placed in the left lateral decubitis position and pre-procedure medications were administered and a bite block was placed. The endoscope was inserted into the mouth and advanced under direct vision to the third part of duodenum. A careful inspection was made as the upper endoscope was withdrawn including a retroflexed examination of the proximal stomach; Findings and interventions are described below. Findings: Larynx:normal Esophagus: GE junction at 37 cm, diaphragm hiatus at 37 cm, balloon dilation done at UES to 19 mm and 20 mm at LES, no tears seen, bx taken from distal esophagus Stomach: granular and erythematous mucosa. Biopsies were obtained. Grade 2 flap valve on retroflexed examination of the cardia. one bx site kept oozing, x 2 clips applied Duodenum: Normal bulb and descending duodenum, Intervention: Biopsies as noted above, balloon dilation COLONOSCOPY Instrument: Olympus variable stiffness pediatric scope 190L Colonoscopy Monitoring: Vital signs and clinical assessment, continuous EKG monitoring, Pulse oximetry, Carbon Dioxide monitoring and blood pressure monitoring were done throughout the procedure. Colon withdrawal time was 10 minutes. Procedure: The patient was placed in the left lateral decubitis position and pre-procedure medications were administered. After a digital rectal examination of the ano-rectum, the video colonoscope was inserted into the rectum and advanced through the colon to the cecum/TI. The colonoscope was slowly withdrawn in a retrograde panoramic fashion and the colon mucosa was carefully examined including a retroflexed view of the rectum. Findings and interventions are described below. Procedure Difficulty:moderate- pressure applied Findings: Terminal Ileum-normal Cecum:normal Ascending Colon: moderate severe diverticulosis with several inverted tics seen - 8 mm flat polyp, lifted with eleview and then removed with cold snare with one clip for hemostasis Transverse Colon -normal Descending Colon:normal Sigmoid Colon: moderate diverticulosis Rectum: Retroflexion with small internal hemorrhoids, grade I Anorectum - normal Colon preparation: [place] Bowel Preparation Scale Right colon; 3 Transverse colon: 3 Left colon; 3 (0 = Unprepared colon segment with mucosa not seen due to solid stool that cannot be cleared. 1 = Portion of mucosa of the colon segment seen, but other areas of the colon segment not well seen due to staining, residual stool and/or opaque liquid. 2 = Minor amount of residual staining, small fragments of stool and/or opaque liquid, but mucosa of colon segment seen well. 3 = Entire mucosa of colon segment seen well with no residual staining, small fragments of stool or opaque liquid) Impression and Post Procedure Diagnosis: Endoscopy Findings: gastritis Colonoscopy Findings: diverticulosis colon polyp x 1 internal hemorrhoids Plan: Await Pathology results Repeat Colonoscopy in 5 years if adenoma, 10 yrs if non adenomatous or earlier if clinically indicated High fiber diet leaflet avoid straining at stool, epsom salts and sitz bath, anusol supps or cream GERD precautions Above findings were reviewed with the patient and relevant handouts were provided if indicated.
[2024-11-23 12:05] VITALS: BP 146/82; PULSE 77; RESP 16; TEMP 36.6; O2SAT 98
[2024-11-23 12:20] VITALS: BP 147/89; PULSE 75; RESP 16; TEMP 36.6; O2SAT 94
== END 2024-11-23 12:56 | disposition home or self-care (01) ==
PROVIDERS: Nurse Practitioner; PCP Physician Assistant; Visit Provider Internal Medicine Gastroenterology
PROC: (CPT 45385; principal; 2024-11-23 10:20)
DX: Z12.11 Encounter for screening for malignant neoplasm of colon (principal); D12.2 Benign neoplasm of ascending colon; K57.30 Diverticulosis of large intestine without perforation or abscess without bleeding; K64.0 First degree hemorrhoids; R13.10 Dysphagia, unspecified; K21.9 Gastro-esophageal reflux disease without esophagitis; K29.60 Other gastritis without bleeding; K44.9 Diaphragmatic hernia without obstruction or gangrene; E83.42 Hypomagnesemia
CPT/HCPCS: 45385; 45381; 43249; 43239; 36415; 83735; 88305; 88313; 88342; C1726; J2003; J2704; J3475

== ENCOUNTER → 2024-11-23 07:56 | Outpatient (BNV) | payer MEDICARE, SELFPAY | PROVIDERS: PCP Physician Assistant; Visit Provider Internal Medicine Gastroenterology | DX: Z12.11 Encounter for screening for malignant neoplasm of colon (principal); D12.2 Benign neoplasm of ascending colon; K57.90 Diverticulosis of intestine, part unspecified, without perforation or abscess without bleeding; K64.0 First degree hemorrhoids; R13.10 Dysphagia, unspecified; K29.70 Gastritis, unspecified, without bleeding | CPT/HCPCS: 43239; 43249; 45381; 45385 ==

== ENCOUNTER → 2024-12-16 10:37 | Outpatient (BNV) | payer MEDICARE, SELFPAY | PROVIDERS: Emergency Provider Emergency Medicine Emergency Medical Services; PCP Physician Assistant; Visit Provider Radiology Diagnostic Radiology | DX: M25.532 Pain in left wrist (principal); S52.572A Other intraarticular fracture of lower end of left radius, initial encounter for closed fracture | CPT/HCPCS: 73090; 73110 ==

== ENCOUNTER 2024-12-16 11:16 | Emergency (ER) | payer MEDICARE, SELFPAY ==
--- NOTE | ~2024-12-16 | XR_ITS ---
EXAMINATION: XR WRIST, LEFT CLINICAL INFORMATION: Fall COMPARISON: None available. TECHNIQUE: PA, lateral, and oblique views of the left wrist. Scaphoid projection. FINDINGS: There is a comminuted cortical disruption distal metaphysis of the radius with the mild dorsal angulation and impacted fragments. Scaphoid is intact. Degenerative changes in the first carpometacarpal joint. Chondrocalcinosis in the ulnar carpal joint. Osteopenia versus osteoporosis. Soft tissue contusion. No subcutaneous emphysema. XR/XR wrist LT min 3V IMPRESSION: Acute comminuted impacted fracture distal metaphysis, left radius. Electronically signed by: Rajinder Olsen MD 12/16/2024 11:43 AM EDT
--- NOTE | ~2024-12-16 | XR_ITS ---
EXAMINATION: XR WRIST, LEFT CLINICAL INFORMATION: post reduction COMPARISON: December 16, 2024 at 11:37 AM TECHNIQUE: PA, lateral, and oblique views of the left wrist. FINDINGS: Fiberglas cast. Stable morphology and positioning of the comminuted impacted fracture distal metaphysis of the radius and dorsal displacement Degenerative changes in the first carpometacarpal joint. XR/XR wrist LT min 3V IMPRESSION: Status post fiberglass cast. Stable/no change. Electronically signed by: Rajinder Olsen MD 12/16/2024 01:22 PM EDT
--- NOTE | ~2024-12-16 | XR_ITS ---
EXAMINATION: XR FOREARM, LEFT CLINICAL INFORMATION: fall COMPARISON: Correlated to left wrist x-ray same date TECHNIQUE: AP and lateral views of the left forearm were obtained. FINDINGS: Acute comminuted impacted fracture distal metaphysis of the left radius. Proximal radius is intact. The ulna is intact. Osteopenia versus osteoporosis. Degenerative changes in the first carpometacarpal joint.. XR/XR forearm LT 2V IMPRESSION: Acute comminuted impacted fracture distal metaphysis, left radius. Electronically signed by: Rajinder Olsen MD 12/16/2024 11:44 AM EDT
[2024-12-16 11:24] VITALS: BP 187/100; PULSE 94; RESP 16; TEMP 36.4; O2SAT 94; BMI 17.1
--- NOTE | 2024-12-16 11:52 | ED.GENADULT ---
HPI - General Adult General Chief complaint: Fall Stated complaint: Arm injury, sent from urgent care Time Seen by Provider: 12/16/24 11:40 Source: patient, RN notes reviewed and old records reviewed Mode of arrival: ambulatory Limitations: no limitations History of Present Illness ED Provider: Miguel HPI narrative: Patient is a 69-year-old right-hand dominant female presenting in the emergency department with complaint of left wrist pain, swelling, deformity and bruising after a trip and fall yesterday around 630 in the morning. Patient states that she tripped and fell while putting her trash out and fell onto outstretched hands. She denies getting dizzy or lightheaded prior to fall. She denies head strike or loss of consciousness. She is not anticoagulated. She denies any numbness or tingling to her fingers or hand. complaint: left wrist pain Onset (ago): day(s) Related Data Home Medications ?Medication ?Instructions ?Recorded ?Confirmed multivitamin 1 tab PO DAILY 10/21/22 11/19/24 aspirin 325 mg tablet 325 mg PO DAILY PRN Pain 12/04/23 11/19/24 alendronate 70 mg tablet 70 mg PO QWEEK 07/06/24 11/19/24 Previous Rx's ?Medication ?Instructions ?Recorded blood pressure test kit-small #1 ea 03/11/22 back brace #1 ea 08/20/22 acetaminophen 325 mg tablet 650 mg (2 x 325 mg) PO Q6H PRN 02/22/23 Pain, Mild (Pain Scale 1-3) 30 days #420 tabs ipratropium 0.5 mg-albuterol 3 mg 3 ml inhalation BID PRN wheezing 03/09/24 (2.5 mg base)/3 mL nebulization #180 mL soln cholecalciferol (vitamin D3) 50 50 mcg PO DAILY #90 caps 03/26/24 mcg (2,000 unit) capsule cyclobenzaprine 5 mg tablet 5 mg PO BID PRN muscle spasm 15 04/21/24 Held on 05/31/24. days #30 tabs Instructions: Doctor's Order montelukast 10 mg tablet 10 mg PO DAILY #90 tabs 06/03/24 atorvastatin 10 mg tablet 10 mg PO DAILY #90 tabs 07/06/24 baclofen 10 mg tablet 10 mg PO BID PRN muscle spasm 30 07/27/24 days #60 tabs lorazepam 0.5 mg tablet 0.5 mg PO DAILY PRN anxiety 4 days 08/30/24 #4 tabs albuterol sulfate 90 mcg/actuation 1 puff inhalation QID PRN 11/08/24 aerosol inhaler Shortness Of Breath #18 grams omeprazole 40 mg capsule,delayed 40 mg PO DAILY #30 caps 11/09/24 release sucralfate 100 mg/mL oral 10 ml PO BID #400 mL 11/09/24 suspension magnesium oxide 400 mg PO DAILY 90 days #90 tabs 12/02/24 ondansetron HCl 4 mg tablet 4 mg PO Q8H PRN nausea and 12/12/24 vomiting 7 days #21 tabs oxybutynin chloride 10 mg 10 mg PO DAILY 30 days #30 tabs 12/12/24 tablet,extended release 24 hr albuterol sulfate 2.5 mg/3 mL 2.5 mg (3 mL) inhalation Q6H PRN 12/13/24 (0.083 %) solution for nebulization shortness of breath or wheezing 30 days #180 mL metoprolol succinate 50 mg 25 mg (1/2 x 50 mg) PO DAILY #45 12/15/24 tablet,extended release 24 hr tabs Allergies Allergy/AdvReac Type Severity Reaction Status Date / Time cat dander Allergy Intermediate Itchy Verified 12/16/24 11:27 Eyes/nasal congestion morphine Allergy Intermediate Flushing-fa Verified 12/16/24 11:27 cial Seasonal Allergies Allergy Intermediate Itchy Eyes Verified 12/16/24 11:27 Review of Systems Review of Systems: As per HPI Yes all other systems are reviewed and are negative Constitutional: Constitutional: Reports as per HPI [facility] Past Medical History Medical History (Updated 12/16/24 @ 14:48 by Mariangel Rivera NP) Cachexia Nasal sinus congestion Cricopharyngeal achalasia Spinal stenosis COPD (chronic obstructive pulmonary disease) Acute respiratory failure with hypoxia Femoral neck fracture GERD (gastroesophageal reflux disease) JANAY (generalized anxiety disorder) IBS (irritable bowel syndrome) MDD (major depressive disorder) Pulmonary nodule Current smoker HTN (hypertension) Surgical History (Updated 11/19/24 @ 13:20 by Michelle Travis RN) History of carotid endarterectomy History of third molar tooth extraction, class I edentulism Hx of bilateral cataract extraction History of total left hip arthroplasty Hx of colonoscopy History of esophagogastroduodenoscopy (EGD) History of cervical discectomy Family History Family History Father Lung cancer Brain cancer Mother CVD (cardiovascular disease) Breast cancer Son In good health Brother In good health Social History Social History Household Members: None Household Members Other:: brother lives downstairs Housing: House Housing Other:: upper level of 2 family home-brother lives on lower level Are you a primary acute care nursing assistant to a significant other at home: No Do you presently have visiting nurse or other home services: No Alcohol intake: current Alcohol intake frequency: a few times a month Patient Tobacco Use Status: Current everyday Tobacco user Tobacco use type: Cigarette Cigarette Packs Per Day: 1 Cigarettes Per Day: 20 Years Smoked: 38 Smoked in Last 30 Days: Yes e-Cigarette/Vaping Use: Never Used Second Hand Smoke Exposure: Yes Use of substances other than those prescribed or required for medical reasons: No Advance Directives: Yes Advance Directives on File: Yes Advance Directives Date on File: 10/21/22 Do you have a plan to hurt others: No Plan service: No Current occupational status: retired Cognitive needs: No Hearing needs: No Vision needs: No Physical Exam ED Vital Signs: Vital Signs - 24 hr 12/16/24 11:24 Temperature 97.6 F Pulse Rate 94 Respiratory Rate 16 Blood Pressure 187/100 H Pulse Oximetry 94 Oxygen Delivery Method Room Air BMI result Body Mass Index 17.1 Vital signs have been reviewed and appear to be correct. Blood pressure elevated. Heart rate normal. Respiratory rate normal. Temperature normal. Oxygen saturation normal. Const General: cooperative, healthy appearing and no acute distress Orientation/consciousness: oriented to person, oriented to place, oriented to time and patient oriented x3 Limitations: no limitations HENMT Head: Yes normocephalic and Yes atraumatic Ears: external ears normal General nose exam: Normal external nose present Face and sinus: Yes face symmetric Mouth: oropharynx normal and moist mucous membranes Throat: Yes uvula midline Eyes Pupils: Equal, round and reactive pupils present Neck Neck: Yes normal visual inspection and Yes supple Resp Effort & Inspection: normal respiratory effort and able to speak in complete sentences Auscultation: clear to auscultation bilaterally Cardio Rate: regular rate Rhythm: regular rhythm Heart sounds: S1 normal heart sound present and S2 normal heart sound present GI Palpation (GI): Soft to palpation and nontender Auscultation: normoactive bowel sounds General: Yes no CVA tenderness Back/Spine/Pelvis Back: no CVA tenderness Skin General skin exam: elasticity normal and turgor normal Neuro General: oriented to person, oriented to place, oriented to time, patient oriented x3, moves all extremities, no focal motor deficits and CN's II-XI intact bilaterally Cranial nerves: Yes Equal, round and reactive pupils present Cognition (Neuro): normal cognition Extrem General: Yes full ROM, Yes no pedal edema and Yes no calf tenderness Left upper extremity: wrist forearm distal medial Details: tenderness Location: of the distal radius, swelling Location: of the dorsal wrist, ecchymosis forearm distal medial - forearm distal lateral , crepitus Location: of the distal radius, deformity, normal vascular exam and radial pulse present (with doppler); ROM abnormal and hand Details: normal capillary refill, neuromotor exam normal, neurosensory exam normal, vascular exam Details: normal capillary refill and normal ROM of fingers Psych Mental Status: mental status grossly normal Affect: normal affect Thought process: Normal thought process present Medications Administered Discontinued Medications Generic Name Dose Route Start Last Admin Trade Name Freq PRN Reason Stop Dose Admin Acetaminophen 975 mg 12/16/24 12:07 12/16/24 12:20 Acetaminophen 325 Mg Tablet PO 12/16/24 12:08 975 mg ONCE ONE Administration Ibuprofen 400 mg 12/16/24 12:12/16/24 12:20 Ibuprofen 400 Mg Tablet PO 12/16/24 12:08 400 mg ONCE ONE Administration Lidocaine HCl 10 ml 12/16/24 12:07 12/16/24 12:20 Lidocaine Hcl 1 % Mpf 30 Ml Vial INTRAARTIC 12/16/24 12:08 10 ml ONCE ONE Administration Protocol Procedures Orthopedic Fracture Reduction Fracture #1: Time Out Performed: Yes Side: left Fracture Reduction Location: radius Analgesia: hematoma block Technique: direct manipulation, traction/counter-traction and finger traps Orthopedic Splinting/Casting Injury #1: Side: left Upper Extremity Injury Location: wrist Upper Extremity Immobilizer: sugar tong splint Medical Decision Making Medical Decision Making MDM Narrative: Patient is a 69-year-old right-hand dominant female presenting in the emergency department with complaint of left wrist pain, swelling, deformity and bruising after a trip and fall yesterday around 630 in the morning. On exam patient is awake, A+Ox3, BP elevated VS otherwise WNL, afebrile, normal neurological exam without focal deficits, physical exam findings as above. Given reported symptoms and physical exam findings, initial differential includes but is not limited to fracture, dislocation, less likely sprain. X-rays left wrist and forearm notable for acute comminuted impacted fracture of distal metaphysis. My interpretation is in agreement with the radiologist's interpretation. Reduction attempted as per procedure note and wrist splinted in sugar-tong also as per procedure note with minimal change, patient is neurovascularly intact distal. Case discussed with Dr. Naqvi who is in agreement with plan and outpatient follow up. Advised ice, Tylenol/ibuprofen, elevation. Strict return precautions discussed. Follow up with ortho. Patient verbalized understanding of and agreement with plan. Differential Diagnosis Differential Diagnoses: The differential diagnosis associated with the presentation includes as per [facility] Admission/Observation Consideration of admission/observation: Escalation of care including admission/observation considered Patient would have been admitted to the hospital had their work up had any findings where hospital admission was appropriate and their clinical presentation warranted hospital admission. Independent Interpretation I performed an independent interpretation of an: Plain X-Ray Interpretation: Acute comminuted impacted distal radius fracture left wrist Radiology Impression Discussion of test interpretation with radiology: I have reviewed the radiologist's reading. Radiologist Impression: XR/XR wrist LT min 3V IMPRESSION: Acute comminuted impacted fracture distal metaphysis, left radius. External Record Review External record reviewed: Inpatient record, Office record and Outpatient record Critical Care Time Critical Care Time Critical Care Time: Yes Total Critical Care Time: 32 Attestation: I have personally provided critical care time exclusive of time spent on separately billable procedures. Time includes review of lab data, radiology results, discussion with consultants, and monitoring for potential decompensation. Intervention performed as documented. Discharge Plan Discharge Clinical Impression: Distal radius fracture, left Qualifiers: Encounter type: initial encounter Fracture type: closed Fracture morphology: unspecified fracture morphology Qualified Code(s): S52.502A - Unspecified fracture of the lower end of left radius, initial encounter for closed fracture Patient Disposition: Home, Self-Care Instructions: Wrist Fracture in Adults (ED), Splint Care (ED) Additional Instructions: You have been evaluated in the emergency department today for left wrist pain. Your evaluation showed a fracture of your distal radius (wrist). We have placed your wrist in a splint today, avoid getting the splint wet. Do not remove the splint on your own. Please rest, ice, and elevate your wrist to help it heal. You will need to follow up with orthopedics for further evaluation. Use Tylenol or ibuprofen per package directions every 6 hours as needed for pain. If necessary, you can alternate these medications and take one medication every 3 hours. For instance, at noon take ibuprofen, then at 3:00 p.m. take Tylenol, then at 6:00 p.m. take ibuprofen. Please follow-up with the orthopedic surgeon within 1 week. Return to the emergency department if you experience worsening pain, numbness, tingling, change of color in your fingers, or any other concerning symptoms. Prescriptions: No Action (DME) back brace Misc See Rx Instructions .Route Qty: 1 0RF Rx Instructions: As directed ipratropium-albuterol 0.5 mg-3 mg(2.5 mg base)/3 mL solution for nebulization 3 ml inhalation BID PRN (Reason: wheezing) Qty: 180 0RF cholecalciferol (vitamin D3) 50 mcg (2,000 unit) capsule 50 mcg PO DAILY Qty: 90 3RF cyclobenzaprine 5 mg tablet 5 mg PO BID PRN (Reason: muscle spasm) 15 Days Qty: 30 2RF montelukast 10 mg tablet 10 mg PO DAILY Qty: 90 3RF baclofen 10 mg tablet 10 mg PO BID PRN (Reason: muscle spasm) 30 Days Qty: 60 3RF lorazepam 0.5 mg tablet 0.5 mg PO DAILY PRN (Reason: anxiety) 4 Days Qty: 4 0RF Rx Instructions: To take pre procedure albuterol sulfate 90 mcg/actuation HFA aerosol inhaler 1 puff inhalation QID PRN (Reason: Shortness Of Breath) Qty: 18 3RF magnesium oxide 400 mg magnesium tablet 400 mg PO DAILY 90 Days Qty: 90 1RF ondansetron HCl 4 mg tablet 4 mg PO Q8H PRN (Reason: nausea and vomiting) 7 Days Qty: 21 0RF oxybutynin chloride 10 mg tablet extended release 24hr 10 mg PO DAILY 30 Days Qty: 30 1RF albuterol sulfate 2.5 mg /3 mL (0.083 %) solution for nebulization 2.5 mg inhalation Q6H PRN (Reason: shortness of breath or wheezing) 30 Days Qty: 180 1RF metoprolol succinate 50 mg tablet extended release 24 hr 25 mg PO DAILY Qty: 45 1RF acetaminophen 325 mg Tablet 650 mg PO Q6H PRN (Reason: Pain, Mild (Pain Scale 1-3)) 30 Days Qty: 420 0RF multivitamin Tablet 1 tab PO DAILY (DME) blood pressure test kit-small Kit See Rx Instructions .Route Qty: 1 0RF Rx Instructions: As directed aspirin 325 mg tablet 325 mg PO DAILY PRN (Reason: Pain) omeprazole 40 mg capsule,delayed release(DR/EC) 40 mg PO DAILY Qty: 30 3RF sucralfate 100 mg/mL suspension 10 ml PO BID Qty: 400 3RF Rx Instructions: Please take it at 2 pm and at bedtime alendronate 70 mg tablet 70 mg PO QWEEK atorvastatin 10 mg tablet 10 mg PO DAILY Qty: 90 1RF Referrals: [facility] [place] Orthopedic Surgeons [Provider Group] Clinical Impression: Distal radius fracture, left Print Language: Yi
[2024-12-16] MEDS: Lidocaine HCl 1 % MPF 30 ML VIAL 10 ML INTRAARTIC (12:20)
--- OUTSIDE RECORDS SUMMARY | 2024-12-16 12:21 | XMS_ITS | Clinical Summary ---
Author Organization [facility] Facility Address [address] [place] [address] Care Team Providers Care Assistant To The Ceo Name Role Phone Michel Dodd Primary Care Provider [phone] Social History Tobacco Use Types Packs/Day Years [...] - PCV) 01/30/2021 01/31/2020 Influenza Vaccine (#1) 2025 Hepatitis B Vaccine Aged Out No longe r eligible based on patient's age to complete this topic Insurance [facility] Medicare [facility] Medicare Care Teams Assistant To The Ceo Relationship Specialty Start Date End Date Michel Dodd PA [address] [facility], [address] [place] [address] PCP - General Physician Handstitching Machine 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
[2024-12-16 15:10] VITALS: BP 187/100; PULSE 94; RESP 16; TEMP 36.4; O2SAT 94
== END 2024-12-16 15:10 | disposition home or self-care (01) ==
PROVIDERS: Emergency Provider Emergency Medicine Emergency Medical Services; PCP Physician Assistant
DX: S52.502A Unspecified fracture of the lower end of left radius, initial encounter for closed fracture (principal); M25.532 Pain in left wrist; F17.210 Nicotine dependence, cigarettes, uncomplicated; X50.1XXA Overexertion from prolonged static or awkward postures, initial encounter; X50.0XXA Overexertion from strenuous movement or load, initial encounter; Y93.9 Activity, unspecified; Y92.9 Unspecified place or not applicable; Y99.8 Other external cause status
CPT/HCPCS: 25605; 29125; 73090; 73110; 99284; J2003

== ENCOUNTER 2024-12-20 13:38 | Outpatient (AMB) | payer MEDICARE, SELFPAY ==
--- OUTSIDE RECORDS SUMMARY | 2024-12-20 14:08 | XMS_ITS | Clinical Summary ---
Author Organization [facility] Facility Address [address] [place] [address] Care Team Providers Care Mobile Security Specialist Name Role Phone Michel Dodd Primary Care Provider [phone] Social History Tobacco Use Types Packs/Day Years [...] patient's age to complete this topic Insurance [facility] Medicare [facility] Medicare Care Teams Mobile Security Specialist Relationship Specialty Start Date End Date Michel Dodd PA [address] [facility], [address] [place] [address] PCP - General Physician Licensed Vocational Nurse 02/24/23
--- NOTE | 2024-12-20 14:26 | A.OFFVIS_ITS ---
Vital Signs 12/20/24 14:33 Height 5 ft 4 in Weight 100 lb BMI 17.2 BP 160/78 H Blood Pressure Location Rt brachial Position Sitting Pulse 110 H Pulse Source Pulse Oximeter Pulse Oximetry (%) 88 L Oxygen Delivery Method Room Air Intake Visit Reasons: s/p double Key[place] Intake Note: ESTABLISHED PATIENT for GERD, IBS mgmt. S/P DUO. CC: C.O. abdominal distention, bloating, and intermittent GI discomfort. Pt states that her sx have shown improvement, however; she still experiences the same chronic sx to a lesser severity. Customer Consultant Required: No Accompanied by: Family/Other Allergies cat dander Allergy (Intermediate, Verified 12/20/24 14:48) Itchy Eyes/nasal congestion morphine Allergy (Intermediate, Verified 12/20/24 14:48) Flushing-facial Seasonal Allergies Allergy (Intermediate, Verified 12/20/24 14:48) Itchy Eyes HPI HPI s/p double Keyes: Details: LAST VISIT GERD (gastroesophageal reflux disease) Abdominal distension Colitis Cricopharyngeal achalasia Dysphagia Chronic diarrhea Colon cancer screening Plan Will check transglutaminase, lipase, CRP. Patient was encouraged to avoid dietary triggers. Patient will continue taking omeprazole in the morning before breakfast and will take sucralfate twice a day in the afternoon and at bedtime. What to expect before during and after procedure discussed with patient. Stressed the importance of clear liquid diet and good bowel prep day before procedure. I will see her after the procedure, sooner on as needed basis. Patient is agreeable to this plan and verbalizes understanding of instructions. She was given the opportunity to ask questions and all questions answered. ? Thank you for allowing me to participate in her care Orders Transglutaminase IgA Today R10.9 Lipase Today R10.9 C Reactive Protein Today K58.9 New bisacodyl (Dulcolax (bisacodyl)) take 4 tabs at noon the day before your colonoscopy 20 mg (4 x 5 mg) PO ONCE 1 day 4 tabs 0RF constipation Z12.11 polyethylene glycol 3350 (Miralax) As directed by gastroenterology department at [facility] 238 grams PO ONCE 238 grams 0RF Z12.11 sucralfate Please take it at 2 pm and at bedtime 10 mL PO BID 400 mL 3RF K21.9 omeprazole 40 mg PO DAILY 30 caps 3RF UPPER ENDOSCOPY AND COLONOSCOPY Findings: Larynx:normal Esophagus: GE junction at 37 cm, diaphragm hiatus at 37 cm, balloon dilation done at UES to 19 mm and 20 mm at LES, no tears seen, bx taken from distal esophagus Stomach: granular and erythematous mucosa. Biopsies were obtained. Grade 2 flap valve on retroflexed examination of the cardia. one bx site kept oozing, x 2 cli ps applied Duodenum: Normal bulb and descending duodenum, Intervention: Biopsies as noted above, balloon dilation COLONOSCOPY Instrument: Olympus variable stiffness pediatric scope 190L Colonoscopy Monitoring: Vital signs and clinical assessment, continuous EKG monitoring, Pulse oximetry, Carbon Dioxide monitoring and blood pressure monitoring were done throughout the procedure. Colon withdrawal time was 10 minutes. Procedure: The patient was placed in the left lateral decubitis position and pre-procedure medications were administered. After a digital rectal examination of the ano-rectum, the video colonoscope was inserted into the rectum and advanced through the colon to the cecum/TI. The colonoscope was slowly withdrawn in a retrograde panoramic fashion and the colon mucosa was carefully examined including a retroflexed view of the rectum. Findings and interventions are described below. Procedure Difficulty:moderate- pressure applied Findings: Terminal Ileum-normal Cecum:normal Ascending Colon: moderate severe diverticulosis with several inverted tics seen - 8 mm flat polyp, lifted with eleview and then removed with cold snare with one clip for hemostasis Transverse Colon -normal Descending Colon:normal Sigmoid Colon: moderate diverticulosis Rectum: Retroflexion with small internal hemorrhoids, grade I Anorectum - normal Colon preparation: [place] Bowel Preparation Scale Right colon; 3 Transverse colon: 3 Left colon; 3 (0 = Unprepared colon segment with mucosa not seen due to solid stool that cannot be cleared. 1 = Portion of mucosa of the colon segment seen, but other areas of the colon segment not well seen due to staining, residual stool and/or opaque liquid. 2 = Minor amount of residual staining, small fragments of stool and/or opaque liquid, but mucosa of colon segment seen well. 3 = Entire mucosa of colon segment seen well with no residual staining, small fragments of stool or opaque liquid) Impression and Post Procedure Diagnosis: Endoscopy Findings: gastritis Colonoscopy Findings: diverticulosis colon polyp x 1 internal hemorrhoids Plan: Await Pathology results Repeat Colonoscopy in 5 years if adenoma, 10 yrs if non adenomatous or earlier if clinically indicated High fiber diet leaflet avoid straining at stool, epsom salts and sitz bath, anusol supps or cream GERD precautions PATHOLOGY RESULTS Diagnosis A. Stomach, biopsy: Gastric antral and body mucosa with mild reactive gastropathy; negative for Helicobacter pylori, intestinal metaplasia and dysplasia. B. Esophagus, distal, biopsy: Squamocolumnar junctional mucosa with mild chronic inflammation; negative for intestinal metaplasia and dysplasia. C. Colon, ascending, polypectomy: Tubular adenoma; negative for high-grade dypslasia. TODAY Patient is here today for follow-up and to discuss upper endoscopy and colonoscopy results. Patient is accompanied by her friend. Since last visit patient has gained few lb. Denies having any ill effects from the prep, anesthesia or procedure itself. Patient continues to have trouble swallowing an d sore throat. Her problem is in her throat it self. Patient just sustained a fall few weeks ago and is wearing a cast to her left arm and wearing a sling. Patient denies any nausea or vomiting. Her symptoms of acid reflux are not completely gone, however improved since last visit. She is moving her bowels multiple times a day. Taking 1 fiber gummy a day. States that improved but not completely better. She continues to smoke cigarettes. Has list of food recommended at home. Not really following up on it. Patient reports that she has been under lot of stress going to different doctor's appointment and visits. Overall patient feels like she is doing better. [facility] Medical History Cachexia Nasal sinus congestion Cricopharyngeal achalasia Spinal stenosis COPD (chronic obstructive pulmonary disease) Acute respiratory failure with hypoxia Femoral neck fracture GERD (gastroesophageal reflux disease) JANAY (generalized anxiety disorder) IBS (irritable bowel syndrome) MDD (major depressive disorder) Pulmonary nodule Current smoker HTN (hypertension) Surgical History History of carotid endarterectomy History of third molar tooth extraction, class I edentulism Hx of bilateral cataract extraction History of total left hip arthroplasty Hx of colonoscopy History of esophagogastroduodenoscopy (EGD) History of cervical discectomy Family History Father Lung cancer Brain cancer Mother CVD (cardiovascular disease) Breast cancer Son In good health Brother In good health Social History Household Members: None Household Members Other:: brother lives downstairs Housing: House Housing Other:: upper level of 2 family home-brother lives on lower level Are you a primary healthcare corporate account director to a significant other at home: No Do you presently have visiting nurse or other home services: No Alcohol intake: current Alcohol intake frequency: a few times a month Patient Tobacco Use Status: Current everyday Tobacco user Tobacco use type: Cigarette Cigarette Packs Per Day: 1 Cigarettes Per Day: 20 Years Smoked: 38 e-Cigarette/Vaping Use: Never Used Second Hand Smoke Exposure: Yes Advance Directives Date on File: 10/21/22 service: No Current occupational status: retired Cognitive needs: No Hearing needs: No Vision needs: No Physical Exam Vital Signs: Last Vital Signs Pulse 110 H 12/20/24 14:33 BP 160/78 H 12/20/24 14:33 Pulse Ox 88 L 12/20/24 14:33 Oxygen Delivery Method Room Air 12/20/24 14:33 BMI result Body Mass Index 17.2 Assessment & Plan Assessment & Plan (1) GERD (gastroesophageal reflux disease): Code(s): K21.9 - Gastro-esophageal reflux disease without esophagitis Category: Medical Qualifiers: Esophagitis presence: without esophagitis Qualified Code(s): K21.9 - Gastro-esophageal reflux disease without esophagitis (2) Dysphagia: Code(s): R13.10 - Dysphagia, unspecified Category: Medical Qualifiers: Dysphagia type: pharyngeal phase Qualified Code(s): R13.13 - Dysphagia, pharyngeal phase (3) Cricopharyngeal achalasia: Code(s): K22.0 - Achalasia of cardia Category: Medical (4) Cholelithiasis: Code(s): K80.20 - Calculus of gallbladder without cholecystitis without obstruction Category: Medical Qualifiers: Cholelithiasis location: gallbladder Cholecystitis presence: without cholecystitis Biliary obstruction: without biliary obstruction Qualified Code(s): K80.20 - Calculus of gallbladder without cholecystitis without obstruction (5) Chronic diarrhea: Code(s): K52.9 - Noninfective gastroenteritis and colitis, unspecified Category: Medical (6) Abdominal distension: Code(s): R14.0 - Abdominal distension (gaseous) Category: Medical Plan Patient continues with symptoms of acid reflux, however reports that she is doing better since starting the medication. She is currently taking omeprazole in the morning and sucralfate twice a day. Patient was encouraged to take to sucralfate in the afternoon and at bedtime. Avoid dietary triggers in late night snacking. Discussed with patient smoking cessation as well patient acknowledges and not interested at this time. Dietitian referral placed to help patient with high-calorie meals. List of food high in calories given to patient and how to prep meals and shake to help her gain weight. Patient will follow-up in the office in 3 months, sooner on as needed basis. She is agreeable to this plan and verbalizes understanding of instructions. She was given the opportunity to ask questions and all questions answered. Thank you for allowing me to participate in her care Orders: Referrals Senior Data Warehouse Developer Nutrition Referral R63.4 - Abnormal weight loss Coding Level of Care Code Est Pt Level 4 (47633) Complex EM visit Add On G2211 Diagnoses Gastroesophageal reflux disease without esophagitis K21.9 Esophagitis presence: without esophagitis Pharyngeal dysphagia R13.13 Dysphagia type: pharyngeal phase Cricopharyngeal achalasia K22.0 Calculus of gallbladder without cholecystitis without obstruction K80.20 Cholelithiasis location: gallbladder Cholecystitis presence: without cholecystitis Biliary obstruction: without biliary obstruction Chronic diarrhea K52.9 Abdominal distension R14.0 Time Spent (min) 35 Comment 25 minutes spent with patient and additional 10 minutes spent reviewing her records
[2024-12-20 14:33] VITALS: BP 160/78; PULSE 110; O2SAT 88; BMI 17.2
== END 2024-12-20 15:18 | disposition home or self-care (01) ==
LOC: HO.HGI 13:39
PROVIDERS: PCP Physician Assistant; Visit Provider Nurse Practitioner Family
DX: K21.9 Gastro-esophageal reflux disease without esophagitis (principal); R13.13 Dysphagia, pharyngeal phase; K22.0 Achalasia of cardia; K80.20 Calculus of gallbladder without cholecystitis without obstruction; K52.9 Noninfective gastroenteritis and colitis, unspecified; R14.0 Abdominal distension (gaseous)
CPT/HCPCS: 99214; G2211

== ENCOUNTER → 2024-12-20 13:38 | Outpatient (BNVA) | payer MEDICARE, SELFPAY | PROVIDERS: PCP Physician Assistant; Visit Provider Nurse Practitioner Family | DX: K21.9 Gastro-esophageal reflux disease without esophagitis (principal); R13.13 Dysphagia, pharyngeal phase; K22.0 Achalasia of cardia; K80.20 Calculus of gallbladder without cholecystitis without obstruction; K52.9 Noninfective gastroenteritis and colitis, unspecified; R14.0 Abdominal distension (gaseous) | CPT/HCPCS: 99212 ==

== ENCOUNTER 2024-12-24 07:04 | Outpatient (REF) | payer MEDICARE, SELFPAY ==
--- NOTE | ~2024-12-24 | XR_ITS ---
EXAMINATION: XR WRIST, LEFT CLINICAL INFORMATION: M25.532 - Pain in left wrist COMPARISON: December 16, 2024. TECHNIQUE: PA, lateral, and oblique views of the left wrist. FINDINGS: Fiberglas cast. Dorsally displaced impacted comminuted fracture distal metaphysis of the radius. No gross callus formation. Osteopenia versus osteoporosis. Degenerative changes in the first carpometacarpal joint. XR/XR wrist LT min 3V IMPRESSION: No gross healing. Electronically signed by: Rajinder Olsen MD 12/24/2024 10:11 AM EDT
--- OUTSIDE RECORDS SUMMARY | 2024-12-27 07:07 | XMS_ITS | Clinical Summary ---
Author Organization [facility] Facility Address [address] [place] [address] Care Team Providers Care Switch House Operator Name Role Phone Michel Dodd Primary Care Provider [phone] Social History Tobacco Use Types Packs/Day Years [...] to complete this topic Insurance [facility] Medicare [facility] Medicare Care Teams Switch House Operator Relationship Specialty Start Date End Date Michel Dodd PA [address] [facility], [address] [place] [address] PCP - General Physician Senior Research Engineer 02/24/23
== END 2024-12-24 07:05 | disposition home or self-care (01) ==
LOC: HO.HOSX 07:04
PROVIDERS: Visit Provider Orthopaedic Surgery
DX: S52.502A Unspecified fracture of the lower end of left radius, initial encounter for closed fracture (principal)
CPT/HCPCS: 25600; 73110; 99202

== ENCOUNTER 2024-12-24 09:56 | Outpatient (AMB) | payer MEDICARE, SELFPAY ==
--- NOTE | 2024-12-24 10:18 | MHC.OFFVIS ---
Vital Signs 12/24/24 10:24 Height 5 ft 4 in Weight 100 lb BMI 17.2 Intake Visit Reasons: FC LT wrist fx DOI 12/16/24 Intake Note: Leslie is a 69 year old right hand dominant female who presents today for evaluation of a fracture to the left wrist. Patient states on 12/16/24 she fell while trying to take out the trash, landing on her left wrist. Patient complains of tingling at the fingers, believes this is related to the splint, as well as pain on the radial aspect and dorsal aspect of the left wrist. She is currently taking Tylenol without relief of pain. Denies previous injuries or surgeries to the left wrist. Patient was reduced at the ED. Allergies cat dander Allergy (Intermediate, Verified 12/24/24 10:20) Itchy Eyes/nasal congestion morphine Allergy (Intermediate, Verified 12/24/24 10:20) Flushing-facial Seasonal Allergies Allergy (Intermediate, Verified 12/24/24 10:20) Itchy Eyes HPI HPI FC LT wrist fx DOI 12/16/24: Details: The patient is a 69-year-old woman who is seen today with her [id number]. She has a sugar-tong splint in place after undergoing a closed reduction following her left distal radius fracture on 12/16 2024. She fell while taking out the trash. She has several medical comorbidities including problems with her lower back, COPD and is still a smoker. [facility] Medical History Cachexia Nasal sinus congestion Cricopharyngeal achalasia Spinal stenosis COPD (chronic obstructive pulmonary disease) Acute respiratory failure with hypoxia Femoral neck fracture GERD (gastroesophageal reflux disease) JANAY (generalized anxiety disorder) IBS (irritable bowel syndrome) MDD (major depressive disorder) Pulmonary nodule Current smoker HTN (hypertension) Surgical History History of carotid endarterectomy History of third molar tooth extraction, class I edentulism Hx of bilateral cataract extraction History of total left hip arthroplasty Hx of colonoscopy History of esophagogastroduodenoscopy (EGD) History of cervical discectomy Family History Father Lung cancer Brain cancer Mother CVD (cardiovascular disease) Breast cancer Son In good health Brother In good health Social History Household Members: None Household Members Other:: brother lives downstairs Housing: House Housing Other:: upper level of 2 family home-brother lives on lower level Are you a primary healthcare corporate account director to a significant other at home: No Do you presently have visiting nurse or other home services: No Alcohol intake: current Alcohol intake frequency: a few times a month Patient Tobacco Use Status: Current everyday Tobacco user Tobacco use type: Cigarette Cigarette Packs Per Day: 1 Cigarettes Per Day: 20 Years Smoked: 38 e-Cigarette/Vaping Use: Never Used Second Hand Smoke Exposure: Yes Advance Directives Date on File: 10/21/22 service: No Current occupational status: retired Cognitive needs: No Hearing needs: No Vision needs: No Physical Exam Vital Signs: BMI result Body Mass Index 17.2 Const General: cooperative and no acute distress Orientation/consciousness: oriented to person and oriented to place HEENT Head: Yes normocephalic and Yes atraumatic Eyes EOM: EOMs intact bilaterally Resp Effort & Inspection: normal respiratory effort and able to speak in complete sentences Cardio Jugular venous distension: no JVD Skin General skin exam: turgor normal Rashes: no rashes Neuro General: oriented to person and oriented to place Extrem Other: Evaluation of left Upper Extremity: Patient was ambulating with a cane, and needed her [id number] to steady her as she was somewhat wobbly on her feet. He says this is due to her low back issues. She is somewhat pale and has COPD. She reports that she is still a smoker. She is 5 ft 4 and weighs 100 lb. Sensation intact to the tips of all digits and cap refill is brisk. She Can bring fingers closed to a fist and back out to full or nearly full extension. Fortunately, the splint allows for finger range of motion. She has a well-positioned sugar-tong splint. Radiographs: Three views of the left wrist were taken today in clinic and reviewed by me. These were also compared with her radiographs from 12/16/2024. They show a distal metaphyseal fracture of the left distal radius. She has got a few mm of dorsal translation as well as some loss of radial inclination. Alignment on the lateral is essentially at neutral to perhaps 1 or 2 degrees of dorsal tilt. Good bony contact and overall satisfactory fracture alignment. Psych Appearance: grossly normal Affect: normal affect Attitude: cooperative Office Procedures AMB Fracture Care Details: Fracture care left distal radius fracture 97710 Fracture Billing Code: Fracture Billing Code Assessment & Plan Assessment & Plan (1) Distal radius fracture, left: Code(s): S52.502A - Unspecified fracture of the lower end of left radius, initial encounter for closed fracture Category: Medical Plan Assessment and plan: 1. Left distal radius fracture Date of injury 12/16/2024, status post reduction in the emergency department I educated the patient and her [id number] about this injury We did discuss operative and non operative treatment options. We can certainly treat this operatively, but I think that there is also a good chance that we can treat this satisfactorily without surgery. She also has COPD and other medical comorbidities. They would like to treat this non operatively. I talked to him about the importance of activity modification and not doing anything with that left hand and then working on finger range of motion. We are leaving her in her well-positioned and molded sugar-tong splint. Follow up in 1 week with new radiographs out of plaster. At that time we can place her in a short-arm cast for 2-3 weeks. She did ask for pain medication, but I told her that I thought that ibuprofen or Tylenol was probably best. She does not appear to be in any pain at present. Orders: Orders XR wrist LT min 3V Today M25.532 - Pain in left wrist Coding Level of Care Code New Pt Level 4 (53977) Diagnoses Distal radius fracture, left S52.502A CPT Codes Fracture Care - Fracture Billing Code: Fracture Billing Code ([id number])
--- OUTSIDE RECORDS SUMMARY | 2024-12-24 10:20 | XMS_ITS | Clinical Summary ---
Author Organization [facility] Facility Address [address] [place] [address] Care Team Providers Care Hand Inserter Operator Name Role Phone Michel Dodd Primary Care Provider [phone] Social History Tobacco Use Types Packs/Day Years [...] patient's age to complete this topic Insurance [facility] Medicare [facility] Medicare Care Teams Hand Inserter Operator Relationship Specialty Start Date End Date Michel Dodd PA [address] [facility], [address] [place] [address] PCP - General Physician Diesel Engineer 02/24/23
[2024-12-24 10:24] VITALS: BMI 17.2
== END 2024-12-24 10:38 | disposition home or self-care (01) ==
LOC: HO.HOS 09:56
PROVIDERS: PCP Physician Assistant; Visit Provider Orthopaedic Surgery
DX: S52.502A Unspecified fracture of the lower end of left radius, initial encounter for closed fracture (principal)
CPT/HCPCS: 25600; 99204

== ENCOUNTER → 2024-12-24 09:58 | Outpatient (BNV) | payer MEDICARE, SELFPAY | PROVIDERS: Visit Provider Radiology Diagnostic Radiology | DX: S52.592K Other fractures of lower end of left radius, subsequent encounter for closed fracture with nonunion (principal) | CPT/HCPCS: 73110 ==

== ENCOUNTER 2024-12-30 10:36 | Outpatient (REF) | payer MEDICARE, SELFPAY ==
--- NOTE | ~2024-12-30 | XR_ITS ---
EXAMINATION: XR WRIST 3 OR MORE VIEWS LEFT HISTORY: M25.532 - Pain in left wrist COMPARISON: Comparison is made with the prior examination dated 12/24/2024. FINDINGS: Three views of the left wrist are submitted. Osseous mineralization is normal. Again seen is an impacted fracture of the distal radial metaphysis. The appearance is not significantly changed. No significant calcification is identified. There is moderate to severe osteoarthritis of the 1st carpometacarpal joint. There is chondrocalcinosis. XR/XR wrist LT min 3V IMPRESSION: Impacted fracture of the distal radial metaphysis without significant change. Electronically signed by: Sal Paul MD 12/30/2024 01:52 PM EDT
--- OUTSIDE RECORDS SUMMARY | 2024-12-30 11:10 | XMS_ITS | Clinical Summary ---
Author Organization [facility] Facility Address [address] [place] [address] Care Team Providers Care Shake Cutter Name Role Phone Michel Dodd Primary Care Provider [phone] Social History Tobacco Use Types Packs/Day Years [...] patient's age to complete this topic Insurance [facility] Medicare [facility] Medicare Care Teams Shake Cutter Relationship Specialty Start Date End Date Michel Dodd PA [address] [facility], [address] [place] [address] PCP - General Physician Superintendent System Operation 02/24/23
== END 2024-12-30 10:37 | disposition home or self-care (01) ==
LOC: HO.HOSX 10:36
DX: S52.502A Unspecified fracture of the lower end of left radius, initial encounter for closed fracture (principal); M25.532 Pain in left wrist; J44.9 Chronic obstructive pulmonary disease, unspecified; F17.210 Nicotine dependence, cigarettes, uncomplicated; X58.XXXA Exposure to other specified factors, initial encounter
CPT/HCPCS: 29075; 73110; 99212

== ENCOUNTER 2024-12-30 11:41 | Outpatient (AMB) | payer MEDICARE, SELFPAY ==
[2024-12-30 12:05] VITALS: BMI 17.2
--- NOTE | 2024-12-30 12:05 | MHC.OFFVIS ---
Vital Signs 12/30/24 12:05 Height 5 ft 4 in Weight 100 lb BMI 17.2 Intake Visit Reasons: OV-LT wrist fx DOI 12/16/24-w/xray Cast off Intake Note: Leslie 69 yr old female presents today for her follow up visit for her Left distal radius fracture, Date of injury 12/16/2024, status post reduction in the emergency department. Splint removed and xrays updated in office. States she has pain and discomfort. Allergies cat dander Allergy (Intermediate, Verified 12/30/24 12:10) Itchy Eyes/nasal congestion morphine Allergy (Intermediate, Verified 12/30/24 12:10) Flushing-facial Seasonal Allergies Allergy (Intermediate, Verified 12/30/24 12:10) Itchy Eyes HPI HPI OV-LT wrist fx DOI 12/16/24-w/xray Cast off: Details: Leslie 69 yr old female presents today for her follow up visit for her Left distal radius fracture, Date of injury 12/16/2024, status post reduction in the emergency department. Splint removed and xrays updated in office. States she has pain and discomfort, but this has improved since date of injury. [facility] Medical History Cachexia Nasal sinus congestion Cricopharyngeal achalasia Spinal stenosis COPD (chronic obstructive pulmonary disease) Acute respiratory failure with hypoxia Femoral neck fracture GERD (gastroesophageal reflux disease) JANAY (generalized anxiety disorder) IBS (irritable bowel syndrome) MDD (major depressive disorder) Pulmonary nodule Current smoker HTN (hypertension) Surgical History History of carotid endarterectomy History of third molar tooth extraction, class I edentulism Hx of bilateral cataract extraction History of total left hip arthroplasty Hx of colonoscopy History of esophagogastroduodenoscopy (EGD) History of cervical discectomy Family History Father Lung cancer Brain cancer Mother CVD (cardiovascular disease) Breast cancer Son In good health Brother In good health Social History Household Members: None Household Members Other:: brother lives downstairs Housing: House Housing Other:: upper level of 2 family home-brother lives on lower level Are you a primary assurance services manager health care to a significant other at home: No Do you presently have visiting nurse or other home services: No Alcohol intake: current Alcohol intake frequency: a few times a month Patient Tobacco Use Status: Current everyday Tobacco user Tobacco use type: Cigarette Cigarette Packs Per Day: 1 Cigarettes Per Day: 20 Years Smoked: 38 e-Cigarette/Vaping Use: Never Used Second Hand Smoke Exposure: Yes Advance Directives Date on File: 10/21/22 service: No Current occupational status: retired Cognitive needs: No Hearing needs: No Vision needs: No Review of Systems Const All systems reviewed & are unremarkable except as noted in HPI and below Physical Exam Vital Signs: BMI result Body Mass Index 17.2 Const General: cooperative and no acute distress Orientation/consciousness: oriented to person and oriented to place HEENT Head: Yes normocephalic and Yes atraumatic Eyes EOM: EOMs intact bilaterally Resp Effort & Inspection: normal respiratory effort and able to speak in complete sentences Cardio Jugular venous distension: no JVD Skin General skin exam: turgor normal Rashes: no rashes Neuro General: oriented to person and oriented to place Extrem Other: Evaluation of left Upper Extremity: Patient was ambulating with a cane, and needed her vkkwyog-dd-ana to steady her as she was somewhat wobbly on her feet. He says this is due to her low back issues. She is somewhat pale and has COPD. She reports that she is still a smoker. She is 5 ft 4 and weighs 100 lb. Sensation intact to the tips of all digits and cap refill is brisk. She Can bring fingers closed to a fist and back out to full or nearly full extension. Radiographs: Three views of the left wrist were taken today in clinic and reviewed by me. These were also compared with her radiographs from 12/16/2024. They show a distal metaphyseal fracture of the left distal radius. She has got a few mm of dorsal translation as well as some loss of radial inclination. Alignment on the lateral is essentially at neutral to perhaps 1 or 2 degrees of dorsal tilt. Good bony contact and overall satisfactory fracture alignment. Psych Appearance: grossly normal Affect: normal affect Attitude: cooperative Office Procedures Casting/Splints 74226-[id number] Cast Application Procedure code (CPT) selection complete Assessment & Plan Assessment & Plan (1) Distal radius fracture, left: Code(s): S52.502A - Unspecified fracture of the lower end of left radius, initial encounter for closed fracture Category: Medical Plan Assessment and plan: 1. Left distal radius fracture Date of injury 12/16/2024, status post reduction in the emergency department I educated the patient and her [id number] about this injury We did discuss operative and non operative treatment options. We can certainly treat this operatively, but I think that there is also a good chance that we can treat this satisfactorily without surgery. She also has COPD and other medical comorbidities. They would like to treat this non operatively. I talked to him about the importance of activity modification and not doing anything with that left hand and then working on finger range of motion. Patient is placed into a Pigeon cast at this time, as I am concerned for her healing capacity as well as for increased displacement of the fracture in any less stable cast Patient is educated on proper cast care and precautions Follow-up in 2 weeks with repeat x-rays for reassessment, sooner with any acute concerns Orders: Orders XR wrist LT min 3V Today M25.532 - Pain in left wrist Coding Level of Care Code Global (34781) Diagnoses Distal radius fracture, left S52.502A CPT Codes Casting - CPT: 40731-Jjvxyze Cast Application ([id number])
== END 2024-12-30 12:54 | disposition home or self-care (01) ==
LOC: HO.HOS 11:42
PROVIDERS: PCP Physician Assistant
DX: S52.502A Unspecified fracture of the lower end of left radius, initial encounter for closed fracture (principal)
CPT/HCPCS: 29075; 99024

== ENCOUNTER → 2024-12-30 11:47 | Outpatient (BNV) | payer MEDICARE, SELFPAY | PROVIDERS: Visit Provider Radiology Diagnostic Radiology | DX: S52.502A Unspecified fracture of the lower end of left radius, initial encounter for closed fracture (principal) | CPT/HCPCS: 73110 ==

== ENCOUNTER 2025-01-14 11:24 | Outpatient (REF) | payer MEDICARE, SELFPAY ==
--- NOTE | ~2025-01-14 | XR_ITS ---
EXAMINATION: XR ELBOW, LEFT CLINICAL INFORMATION: M25.522 - Pain in left elbow COMPARISON: None available. TECHNIQUE: AP, lateral, and oblique views of the left elbow. FINDINGS: Mild diffuse osseous demineralization. No fracture, dislocation, or suspicious bone lesion. Normal alignment. There are mild degenerative changes in the elbow joint with subtle chondrocalcinosis present. Soft tissues appear normal. XR/XR elbow LT min 3V IMPRESSION: 1. No acute bony abnormalities. 2. 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 Electronically signed by: Joel Cortez MD 01/14/2025 12:12 PM EDT
--- NOTE | ~2025-01-14 | XR_ITS ---
EXAMINATION: XR WRIST, LEFT CLINICAL INFORMATION: M25.532 - Pain in left wrist COMPARISON: December 30, 2024 TECHNIQUE: PA, lateral, and oblique views of the left wrist. FINDINGS: Again seen is an impacted fracture of the distal radius with increasing density consistent with healing. There is amorphous calcification in the jugular femoral cartilage, lunotriquetral ligament, articular cartilage of the radiocarpal compartment and STT joint. There is also stippled calcific density in the soft tissues dorsal to the proximal carpal row. There is sclerosis and osteophyte formation involving the first carpal metacarpal joint. XR/XR wrist LT min 3V IMPRESSION: Healing impacted fracture of distal radius. Pyrophosphate arthropathy. Electronically signed by: Anthony Mix MD 01/14/2025 12:12 PM EDT
--- OUTSIDE RECORDS SUMMARY | 2025-01-14 11:28 | XMS_ITS | Clinical Summary ---
Author Organization [facility] Facility Address [address] [place] [address] Care Team Providers Care Cloth Dyer Name Role Phone Michel Dodd Primary Care Provider [phone] Social History Tobacco Use Types Packs/Day Years [...] patient's age to complete this topic Insurance [facility] Medicare [facility] Medicare Care Teams Cloth Dyer Relationship Specialty Start Date End Date Michel Dodd PA [address] [facility], [address] [place] [address] PCP - General Physician Material Analyst 02/24/23
--- OUTSIDE RECORDS SUMMARY | 2025-01-14 11:28 | XMS_ITS | Clinical Summary ---
Author Organization [facility] Address [address] [place], [place] [id number] Phone Care Team Providers Care Filtration Plant Mechanic Name Role Phone Chula Patton MD Primary Care Provider [phone] Social History Tobacco Use Types Packs/Day Years Used Date Smoking Tobacco: Never Assessed Education Answer Date Recorded Are you interested in more education? Not on tim e 10/25/2022 Are you concerned about learning? Not on file 10/25/2022 No 10/25/2022 No 10/25/2022 Digital Access Answer Date Recorded No 11/12/2022 No 11/12/2022 Reliable internet access at home? Not on file 11/12/2022 Device with a working camera? Not on file Comments Unknown Sex and Gender Information Value Date Recorded Sex Assigned at Not on file Legal Sex Female 9:15 AM EDT Gender Identity Not on file Sexual Orientation Not on file Plan of Treatment Not on file Medical Devices Not on file Insurance [facility] MEDICARE REPLACEMENT MEDICARE REPLACEMENT MEDICARE [place]PLAC[place] [address] [address] MEDICARE REPLACEMENT [facility] MEDICARE REPLACEMENT [facility] MEDICARE REPLACEMENT Care Teams Filtration Plant Mechanic Relationship Specialty Start Date End Date Chula Patton MD [address] [place] [id number] [email or web address] PCP - General Internal Medicine 10/25/22 Additional Source Comments The information contained in this document represents components of the legal health record. It is not the complete legal health record.[facility]
== END 2025-01-14 11:25 | disposition home or self-care (01) ==
LOC: HO.HOSX 11:24
DX: S59.292D Other physeal fracture of lower end of radius, left arm, subsequent encounter for fracture with routine healing (principal); J44.9 Chronic obstructive pulmonary disease, unspecified; M25.532 Pain in left wrist; M25.522 Pain in left elbow; F17.210 Nicotine dependence, cigarettes, uncomplicated; X58.XXXD Exposure to other specified factors, subsequent encounter
CPT/HCPCS: 73080; 73110; 99212

== ENCOUNTER 2025-01-14 11:30 | Outpatient (AMB) | payer MEDICARE, SELFPAY ==
--- NOTE | 2025-01-14 11:35 | A.OFFVIS_ITS ---
Vital Signs 01/14/25 12:04 Height 5 ft 4 in Weight 100 lb BMI 17.2 Intake Visit Reasons: OV-Left Distal Radius Fx 12/16/24-w/xray Intake Note: Leslie is a 69 year old right hand dominant female who presents today for a follow up of her Left Distal Radius Fracture 12/16/24. At her last visit operative VS non operative treatment were discussed and decided to move forward with no operative treatment. She was placed in a Bazine cast. Patient reports pain all around the arm. She has some pressure points that are red and irritated. There is some blood stains in the inside padding of the cast. Patient was very sensitive during cast removal. Allergies cat dander Allergy (Intermediate, Verified 01/14/25 11:56) Itchy Eyes/nasal congestion morphine Allergy (Intermediate, Verified 01/14/25 11:56) Flushing-facial Seasonal Allergies Allergy (Intermediate, Verified 01/14/25 11:56) Itchy Eyes HPI HPI OV-Left Distal Radius Fx 12/16/24-w/xray: Details: Leslie is a 69 year old right hand dominant female who presents today for a follow up of her Left Distal Radius Fracture 12/16/24. At her last visit operative VS non operative treatment were discussed and decided to move forward with no operative treatment. She was placed in a Bazine cast. Patient reports pain all around the arm. She has some pressure points that are red and irritated. There is some blood stains in the inside padding of the cast. Patient was very sensitive during cast removal. Once cast was removed, patient reports no ongoing pain. [facility] Medical History Cachexia Nasal sinus congestion Cricopharyngeal achalasia Spinal stenosis COPD (chronic obstructive pulmonary disease) Acute respiratory failure with hypoxia Femoral neck fracture GERD (gastroesophageal reflux disease) JANAY (generalized anxiety disorder) IBS (irritable bowel syndrome) MDD (major depressive disorder) Pulmonary nodule Current smoker HTN (hypertension) Surgical History History of carotid endarterectomy History of third molar tooth extraction, class I edentulism Hx of bilateral cataract extraction History of total left hip arthroplasty Hx of colonoscopy History of esophagogastroduodenoscopy (EGD) History of cervical discectomy Family History Father Lung cancer Brain cancer Mother CVD (cardiovascular disease) Breast cancer Son In good health Brother In good health Social History Household Members: None Household Members Other:: brother lives downstairs Housing: House Housing Other:: upper level of 2 family home-brother lives on lower level Are you a primary acute care surgeon to a significant other at home: No Do you presently have visiting nurse or other home services: No Alcohol intake: current Alcohol intake frequency: a few times a month Patient Tobacco Use Status: Current everyday Tobacco user Tobacco use type: Cigarette Cigarette Packs Per Day: 1 Cigarettes Per Day: 20 Years Smoked: 38 e-Cigarette/Vaping Use: Never Used Second Hand Smoke Exposure: Yes Advance Directives Date on File: 10/21/22 service: No Current occupational status: retired Cognitive needs: No Hearing needs: No Vision needs: No Review of Systems Const All systems reviewed & are unremarkable except as noted in HPI and below Physical Exam Vital Signs: BMI result Body Mass Index 17.2 Const General: cooperative and no acute distress Orientation/consciousness: oriented to person and oriented to place HEENT Head: Yes normocephalic and Yes atraumatic Eyes EOM: EOMs intact bilaterally Resp Effort & Inspection: normal respiratory effort and able to speak in complete s entences Cardio Jugular venous distension: no JVD Skin General skin exam: turgor normal Rashes: no rashes Neuro General: oriented to person and oriented to place Extrem Other: Evaluation of left Upper Extremity: Patient was ambulating with a cane, and needed her joghzen-kw-jiz to steady her as she was somewhat wobbly on her feet. He says this is due to her low back issues. She is somewhat pale and has COPD. She reports that she is still a smoker. She is 5 ft 4 and weighs 100 lb. Sensation intact to the tips of all digits and cap refill is brisk. No tenderness to palpation about fracture site Minimal tenderness to palpation about open areas at pressure points from cast She Can bring fingers closed to a fist and back out to full or nearly full extension. Radiographs: Three views of the left wrist were taken today in clinic and reviewed by me. These were also compared with her radiographs from 12/16/2024. They show a distal metaphyseal fracture of the left distal radius. She has got a few mm of dorsal translation as well as some loss of radial inclination. Alignment on the lateral is essentially at neutral to perhaps 1 or 2 degrees of dorsal tilt. Good bony contact and overall satisfactory fracture alignment. There is evidence of early interval bony healing at this time Psych Appearance: grossly normal Affect: normal affect Attitude: cooperative Assessment & Plan Assessment & Plan (1) Distal radius fracture, left: Code(s): S52.502A - Unspecified fracture of the lower end of left radius, initial encounter for closed fracture Category: Medical Plan Assessment and plan: 1. Left distal radius fracture Date of injury 12/16/2024, status post reduction in the emergency department I educated the patient and her wnpzyjn-pk-yrh about this injury We did discuss operative and non operative treatment options. We can certainly treat this operatively, but I think that there is also a good chance that we can treat this satisfactorily without surgery. She also has COPD and other medical comorbidities. They would like to treat this non operatively. I talked to him about the importance of activity modification and not doing anything with that left hand and then working on finger range of motion. Patient is placed into a Velcro wrist splint at this time Should wear Velcro wrist splint at all times except for bathing for the next week, can begin wearing with daytime activities after one-week After one-week, can begin to work on early gentle range of motion of the left wrist Dressings placed on the small open areas at pressure points of cast Patient can wash these with soap and water, is advised on signs and symptoms of infection Follow-up in 3-4 weeks with repeat x-rays for reassessment, sooner with any acute concerns Orders: Orders XR wrist LT min 3V 01/14/25 M25.532 - Pain in left wrist XR elbow LT min 3V 01/14/25 M25.522 - Pain in left elbow Coding Level of Care Code Global (43842) Diagnoses Distal radius fracture, left S52.502A
[2025-01-14 12:04] VITALS: BMI 17.2
== END 2025-01-14 12:27 | disposition home or self-care (01) ==
LOC: HO.HOS 11:30
DX: S52.502A Unspecified fracture of the lower end of left radius, initial encounter for closed fracture (principal)
CPT/HCPCS: 99024

== ENCOUNTER → 2025-01-14 11:33 | Outpatient (BNV) | payer MEDICARE, SELFPAY | PROVIDERS: Visit Provider Radiology Diagnostic Radiology | DX: M11.232 Other chondrocalcinosis, left wrist (principal); M19.022 Primary osteoarthritis, left elbow | CPT/HCPCS: 73080; 73110 ==

== ENCOUNTER 2025-02-01 10:23 | Outpatient (AMB) | payer MEDICARE, SELFPAY ==
--- NOTE | 2025-02-01 10:27 | MHC.PC.OV ---
Vital Signs 02/01/25 10:28 Height 5 ft 4 in Weight 90 lb BMI 15.4 BP 120/68 Blood Pressure Location Rt brachial Position Sitting Pulse 113 H Pulse Source Pulse Oximeter Temp 97.3 F Temp Source Temporal Artery Scan Pulse Oximetry (%) 95 Oxygen Delivery Method Room Air Intake Visit Reasons: f/u IBS, HTN Intake Note: Patient is here to follow up on IBS, HTN. Desk Maker Required: No Hollow Handle Knife Assembler: Not Required per policy Accompanied by: Self / Same As Patient Allergies cat dander Allergy (Intermediate, Verified 02/01/25 11:03) Itchy Eyes/nasal congestion morphine Allergy (Intermediate, Verified 02/01/25 11:03) Flushing-facial Seasonal Allergies Allergy (Intermediate, Verified 02/01/25 11:03) Itchy Eyes Medication List - Last Reconciled 02/01/25 by Michel Dodd PA-C acetaminophen 650 mg (2 x 325 mg) PO Q6H PRN 30 days albuterol sulfate 90 mcg/actuation 1 puff inhalation QID PRN albuterol sulfate 2.5 mg (3 mL) inhalation Q6H PRN 30 days aspirin 325 mg PO DAILY PRN atorvastatin 10 mg PO DAILY back brace As directed baclofen 10 mg PO BID PRN 30 days blood pressure test kit-small As directed cholecalciferol (vitamin D3) 50 mcg PO DAILY cyclobenzaprine 5 mg PO BID PRN 15 days Held on 05/31/24. Instructions: Doctor's Order ipratropium-albuterol 0.5 mg-3 mg(2.5 mg base)/3 mL 3 mL inhalation BID PRN lorazepam 0.5 mg PO DAILY PRN 4 days magnesium oxide 400 mg PO DAILY 90 days metoprolol succinate ER 25 mg (1/2 x 50 mg) PO DAILY montelukast 10 mg PO DAILY multivitamin 1 tab PO DAILY omeprazole 40 mg PO DAILY ondansetron HCl 4 mg PO Q8H PRN 7 days oxybutynin chloride ER 10 mg PO DAILY 30 days sucralfate 10 mL PO BID Tobacco use date assessed: 02/01/25 Fall risk assessment: 1 Fall in past year Last assessed Fall Risk: 02/01/25 Dental Screening Dental Screen Date: 07/06/24 HPI f/u IBS, HTN HPI Details Patient is a 69-year-old female here today for a follow-up visit. Patient has a past medical history significant for hyperlipidemia, carotid stenosis, COPD, tobacco dependency, hypertension. Left wrist fracture: The patient reports a fracture of the distal radius that occurred in mid-December when she attempted to prevent a fall, resulting in her arm hitting the floor. She was initially placed in a cast for two weeks, and subsequent x-rays showed no significant change, indicating a healing impacted fracture. The patient experiences persistent pain and swelling in the elbow, with a pain level of 10, and has been managing with tramadol due to a history of morphine allergy. Irritable bowel syndrome: -- > chronic gastrointestinal symptoms primarily attributed to Irritable Bowel Syndrome (IBS). She reports ongoing nausea, frequent bowel movements, and notable abdominal distension mimicking late-stage . Antibiotic treatment has previously reduced her symptoms slightly, but the distension persists, causing significant discomfort. She does continue on PPI therapy (omeprazole 40 mg) which does report help, also does ondansetron for nausea which is helpful for her nausea. .. Urinary frequency: The patient also reports urinary frequency, with a history of a bladder test that was inconclusive due to technical difficulties during the procedure. She has been experiencing post-void urinary retention and a small bladder diverticulum was noted on ultrasound. The patient has not seen a urologist recently but is considering it for further evaluation. Hypertension: Patient's blood pressure acceptable today in office. She is concerned about amlodipine as she feels it is causing her blood pressure to be too low. Has discontinued amlodipine. Continues on lisinopril and metoprolol. .. .. Lumbar spine disease: Patient is followed by [facility] and is considering lumbar vertebral surgery. Surgery and procedures has been placed on hold due to other medical issues that have presented. She is eager to return back to her back specialist to discuss back to surgery. Laboratory Tests 10/28/23 12/08/23 12/10/23 10:34 14:24 11:01 Hgb Sodium 129 L 130 L Potassium 5.6 H D 5.7 H Creatinine Magnesium Albumin Cholesterol LDL Cholesterol, C alc TSH 4.88 H Free T4 0.69 L Tiss Transglutamin IgA 12/30/23 03/09/24 06/29/24 10:47 14:21 13:48 Hgb Sodium 134 L Potassium 3.6 D 4.6 5.9 H D Creatinine 0.83 Magnesium 1.6 1.0 L* Albumin Cholesterol 267 H LDL Cholesterol, C alc TSH Free T4 Tiss Transglutamin IgA 11/09/24 11/23/24 11:08 08:45 Hgb 14.3 Sodium Potassium Creatinine Magnesium 1.4 L* 1.2 L* Albumin 3.4 L Cholesterol 181 LDL Cholesterol, C alc 92 TSH Free T4 Tiss Transglutamin IgA <1.0 PFSH Medical History (Updated 02/01/25 @ 11:26 by Michel Dodd PA-C) IBS (irritable bowel syndrome) Cachexia Nasal sinus congestion Cricopharyngeal achalasia Spinal stenosis COPD (chronic obstructive pulmonary disease) Acute respiratory failure with hypoxia Femoral neck fracture GERD (gastroesophageal reflux disease) JANAY (generalized anxiety disorder) MDD (major depressive disorder) Pulmonary nodule Current smoker HTN (hypertension) Surgical History History of carotid endarterectomy History of third molar tooth extraction, class I edentulism Hx of bilateral cataract extraction History of total left hip arthroplasty Hx of colonoscopy History of esophagogastroduodenoscopy (EGD) History of cervical discectomy Family History Father Lung cancer Brain cancer Mother CVD (cardiovascular disease) Breast cancer Son In good health Brother In good health Social History Household Members: None Household Members Other:: brother lives downstairs Housing: House Housing Other:: upper level of 2 family home-brother lives on lower level Are you a primary acute care assistant to a significant other at home: No Do you presently have visiting nurse or other home services: No Alcohol intake: current Alcohol intake frequency: a few times a month Patient Tobacco Use Status: Current everyday Tobacco user Tobacco use type: Cigarette Cigarette Packs Per Day: 1 Cigarettes Per Day: 20 Years Smoked: 38 e-Cigarette/Vaping Use: Never Used Second Hand Smoke Exposure: Yes Advance Directives Date on File: 10/21/22 service: No Current occupational status: retired Cognitive needs: No Hearing needs: No Vision needs: No Questionnaire PHQ-9 Over the last 2 weeks, how often have you been bothered by any of the following problems? 1. Little interest or pleasure in doing things: not at all 2. Feeling down, depressed, or hopeless: not at all 6. Feeling bad about yourself - or that you are a failure or have let yourself or your family down: not at all 7. Trouble concentrating on things, such as reading the newspaper or watching television: not at all 8. Moving or speaking so slowly that other people could have noticed. Or the opposite - being so fidgety or restless that you have been moving around a lot more than usual: not at all 9. Thoughts that you would be better off or of hurting yourself in some way: not at all Source: Developed by Drs. Sal Porras, Alma Marks, Amado Kaur and colleagues, with an educational katya from [employer] by [employer]. Thrive Questionnaire Date Thrive assessed: 07/06/24 What is your living situation today?: I choose not to answer this question Within the past 12 months, did the food you bought not last and you didn't have the money to get more?: I choose not to answer this question Within the past 12 months, did you worry whether your food would run out before you got money to buy more?: I choose not to answer this question Do you have trouble paying for medicines?: Yes Do you have trouble getting transportation to medical appointments?: I choose not to answer this question Do you have trouble paying your heating and electricity bill?: I choose not to answer this question Do you have trouble taking care of your child, family member or friend?: I choose not to answer this question Do you have trouble with day-to-day activities such as bathing, preparing meals, shopping, managing finances, etc.?: Yes Are you currently unemployed and looking for a job?: I choose not to answer this question Are you interested in more education?: No Please select the resources that you would like help with: None Currently or been in a relationship where the following occur: No concerns reported THRIVE Score: 0 JANAY-7 AMB Questionnaire JANAY-7 Date JANAY - 7 assessed: 07/06/24 Feeling nervous, anxious, or on edge: 0 = Not at all Not being able to stop or control worryin = Not at all Worrying too much about different things: 0 = Not at all Trouble relaxin = Not at all Being so restless that it is hard to sit still: 0 = Not at all Becoming easily annoyed or irritable: 0 = Not at all Feeling afraid as if something awful might happen: 0 = Not at all Total JANAY-7 score (0-4 normal; 5-9 mild; 10-14 moderate; 15-21 severe): 0 Source: Developed by Drs. Sal Porras, Alma Marks, Amado Kaur and colleagues, with an educational katya from [employer]. Review of Systems Const Denies headache(s) Eyes Denies loss of vision ENT Denies vertigo, Denies dizziness, Denies headache(s) and Denies sore throat Card Denies chest pain, Denies leg edema and Denies lightheadedness Resp Denies cough, Denies hemoptysis and Denies wheezing GI Reports abdominal pain, Denies melena, Reports constipation, Reports GI cramping, Denies diarrhea, Reports loose stools, Reports nausea and Denies vomiting Denies urinary frequency, Denies dysuria and Denies urinary urgency Musc Denies arthralgias, Denies joint swelling, Denies numbness and Denies tingling Neuro Denies Abnormal speech present, Denies behavioral changes, Denies vertigo, Denies dizziness, Denies headache(s), Denies loss of vision, Denies memory loss, Denies numbness and Denies tingling Psych Denies anxiety, Denies behavioral changes, Denies depression, Denies memory loss and Denies panic attacks Jefe/Lymph Denies easy bleeding and Denies easy bruising Aller/Immun Denies wheezing Physical exam (Primary Care) Vital Signs: Last Vital Signs Temp 97.3 F 02/01/25 10:28 Pulse 113 H 02/01/25 10:28 BP 120/68 02/01/25 10:28 Pulse Ox 95 02/01/25 10:28 Oxygen Delivery Method Room Air 02/01/25 10:28 BMI result Body Mass Index 15.4 Tobacco/Smoking Status: Tobacco use Status Tobacco use date assessed 02/01/25 02/01/25 10:29 Patient Tobacco Use Status Current everyday Tobacco 02/01/25 10:29 Tobacco use type Cigarette 02/01/25 10:29 e-Cigarette/Vaping Use Never Used 02/01/25 10:29 Thrive Assessment: Date of Thrive Assessment Date Thrive assessed 07/06/24 02/01/25 10:29 Currently or been in a relationship where the following occur: No concerns reported Const General: healthy appearing, no acute distress, alert and awake Nutritional Appearance: well nourished Orientation/consciousness: oriented to person, oriented to place and oriented to time HENMT Ears: TM's normal bilaterally General nose exam: Normal nasal mucous membranes and turbinates present Eyes Conjunctivae: conjunctivae normal Sclerae: sclerae normal Pupils: Equal, round and reactive pupils present Neck Neck: Yes no lymphadenopathy and Yes no JVD Thyroid: Thyroid normal Carotids: no bruits Resp Effort & Inspection: normal respiratory effort and not tachypneic Auscultation: no crackles, no rales, no rhonchi and no wheezes Cardio Rate: regular rate Rhythm: regular rhythm Heart sounds: no murmurs and normal S1 and S2 GI Palpation (GI): Soft to palpation, nontender, no hepatomegaly and no splenomegaly Auscultation: normal bowel sounds Skin General skin exam: no rashes or lesions noted and dry skin Neuro General: oriented to person, oriented to place and oriented to time Cranial nerves: Yes Equal, round and reactive pupils present Speech: No Abnormal speech present Gait exam (Neuro): Normal gait present Motor exam (neuro): no tremor noted Extrem Other: LEFT WRIST WITH WRIST SPLINT CURRENTLY ON. NEUROVASCULARLY INTACT IN ALL DISTAL DIGITS Right upper extremity: full ROM Left upper extremity: full ROM Right lower extremity: full ROM; no edema Left lower extremity: full ROM; no edema Psych Mental Status: mental status grossly normal Speech and movement: Normal speech and movement present Affect: normal affect Attitude: cooperative Thought process: Normal thought process present Coding Level of Care Code Est Pt Level 4 (58645) Diagnoses Tobacco dependence F17.200 Gastroesophageal reflux disease without esophagitis K21.9 Esophagitis presence: without esophagitis Spastic bladder N32.89 Centrilobular emphysema J43.2 COPD type: emphysema Emphysema type: centrilobular Other closed fracture of distal end of left radius with delayed healing, subsequent encounter S52.592G Encounter type: subsequent encounter Fracture healing: with delayed healing Fracture morphology: other fracture Fracture type: closed Irritable bowel syndrome, unspecified type K58.9 Irritable bowel syndrome type: unspecified Assessment & Plan Assessment & Plan (1) Tobacco dependence: Code(s): F17.200 - Nicotine dependence, unspecified, uncomplicated Category: Medical Plan: Patient does understand she needs to quit smoking though unfortunately has found it very difficult to do so. Have offered nicotine replacement though patient declines. She reports she has cut down to half a pack of cigarettes per day. Not interested in stopping smoking at this time (2) GERD (gastroesophageal reflux disease): Code(s): K21.9 - Gastro-esophageal reflux disease without esophagitis Category: Medical Qualifiers: Esophagitis presence: without esophagitis Qualified Code(s): K21.9 - Gastro-esophageal reflux disease without esophagitis Plan: Continues on pantoprazole and p.r.n. use of ondansetron. Unfortunately still has same IBS symptoms of cramping, abdominal pain, loose stool which she feels is not allow her to gain weight. (3) Spastic bladder: Code(s): N32.89 - Other specified disorders of bladder Category: Medical Plan: The patient is advised to consider a urology consultation for further evaluation of urinary frequency and post-void retention. Current management includes monitoring symptoms and considering further diagnostic testing if symptoms persist. (4) COPD (chronic obstructive pulmonary disease): Code(s): J44.9 - Chronic obstructive pulmonary disease, unspecified Category: Medical Qualifiers: COPD type: emphysema Emphysema type: centrilobular Qualified Code(s): J43.2 - Centrilobular emphysema Plan: Patient reports her pulmonary status has been fairly well stable. Unfortunately still smokes. She does have access to albuterol inhaler and albuterol solution to use as needed. (5) Distal radius fracture, left: Code(s): S52.502A - Unspecified fracture of the lower end of left radius, initial encounter for closed fracture Category: Medical Qualifiers: Encounter type: subsequent encounter Fracture healing: with delayed healing Fracture morphology: other fracture Fracture type: closed Qualified Code(s): S52.592G - Other fractures of lower end of left radius, subsequent encounter for closed fracture with delayed healing Plan: The patient will continue to manage the fracture conservatively with a brace and limited use of the affected arm. Pain management includes tramadol, and follow-up with orthopedics is scheduled to assess healing progress. (6) IBS (irritable bowel syndrome): Code(s): K58.9 - Irritable bowel syndrome, unspecified Category: Medical Qualifiers: Irritable bowel syndrome type: unspecified Qualified Code(s): K58.9 - Irritable bowel syndrome without diarrhea Plan: As above, GI workup including endoscopy and colonoscopy were benign. Continues to follow [facility] Orders: Orders TSH reflex Free T4 02/01/25 R79.89 - Other specified abnormal findings of blood chemistry Magnesium 02/01/25 E83.42 - Hypomagnesemia Lipid Panel 02/01/25 E78.5 - Hyperlipidemia, unspecified Complete Blood Count no Diff 02/01/25 J43.2 - Centrilobular emphysema Comprehensive [place]. Panel Fast 02/01/25 I10 - Essential (primary) hypertension Medications: New tramadol 50 mg PO BID 10 tabs 0RF pain 5 days S52.502A - Unspecified fracture of the lower end of left radius, initial encounter for closed fracture mirtazapine 15 mg PO BEDTIME 90 tabs 1RF 90 days K58.9 - Irritable bowel syndrome, unspecified Refilled atorvastatin 10 mg PO DAILY 90 tabs 1RF E78.5 - Hyperlipidemia, unspecified, Z98.890 - Other specified postprocedural states albuterol sulfate 2.5 mg (3 mL) inhalation Q6H PRN 180 mL 1RF shortness of breath or wheezing 30 days J44.9 - Chronic obstructive pulmonary disease, unspecified ondansetron HCl 4 mg PO Q8H PRN 21 tabs 2RF nausea and vomiting 7 days R14.0 - Abdominal distension (gaseous)
[2025-02-01 10:28] VITALS: BP 120/68; PULSE 113; TEMP 36.3; O2SAT 95; BMI 15.4
--- OUTSIDE RECORDS SUMMARY | 2025-02-01 11:42 | XMS_ITS | Clinical Summary ---
Author Organization [facility] Address [address] [place], [place] [id number] Phone Care Team Providers Care University Teacher Name Role Phone Chula Patton MD Primary Care Provider [phone] Social History Tobacco Use Types Packs/Day Years [...] file Medical Devices Not on file Insurance [facility] MEDICARE REPLACEMENT MEDICARE REPLACEMENT MEDICARE [place] [address] [place] [address] MEDICARE REPLACEMENT [facility] MEDICARE REPLACEMENT [facility] MEDICARE REPLACEMENT Care Teams University Teacher Relationship Specialty Start Date End Date Chula Patton MD [address] [place] [id number] [email or web address] PCP - General Internal Medicine 10/25/22 Additional Source Comments The information contained in this document represents components of the legal health record. It is not the complete legal health record.[facility]
--- OUTSIDE RECORDS SUMMARY | 2025-02-01 11:42 | XMS_ITS | Clinical Summary ---
Author Organization [facility] Facility Address [address] [place] [address] Care Team Providers Care Dockworker Name Role Phone Michel Dodd Primary Care Provider [phone] Social History Tobacco Use Types Packs/Day Years [...] patient's age to complete this topic Insurance [facility] Medicare [facility] Medicare Care Teams Dockworker Relationship Specialty Start Date End Date Michel Dodd PA [address] [facility], [address] [place] [address] PCP - General Physician Section Plotter Operator 02/24/23
== END 2025-02-01 11:36 | disposition home or self-care (01) ==
LOC: HO.HMCH 10:24
PROVIDERS: PCP Physician Assistant; Visit Provider Physician Assistant
DX: F17.200 Nicotine dependence, unspecified, uncomplicated (principal); K21.9 Gastro-esophageal reflux disease without esophagitis; N32.89 Other specified disorders of bladder; J43.2 Centrilobular emphysema; S52.592G Other fractures of lower end of left radius, subsequent encounter for closed fracture with delayed healing; K58.9 Irritable bowel syndrome, unspecified

== ENCOUNTER → 2025-02-01 10:23 | Outpatient (BNVA) | payer MEDICARE, SELFPAY | PROVIDERS: PCP Physician Assistant; Visit Provider Physician Assistant | DX: I10 Essential (primary) hypertension (principal); K58.9 Irritable bowel syndrome, unspecified; E78.5 Hyperlipidemia, unspecified; J44.9 Chronic obstructive pulmonary disease, unspecified; F17.210 Nicotine dependence, cigarettes, uncomplicated; R35.0 Frequency of micturition; K21.9 Gastro-esophageal reflux disease without esophagitis; N32.89 Other specified disorders of bladder; J43.2 Centrilobular emphysema; S52.592G Other fractures of lower end of left radius, subsequent encounter for closed fracture with delayed healing; R79.89 Other specified abnormal findings of blood chemistry; E83.42 Hypomagnesemia; R14.0 Abdominal distension (gaseous); W19.XXXD Unspecified fall, subsequent encounter; Z87.81 Personal history of (healed) traumatic fracture | CPT/HCPCS: 99212 ==

== ENCOUNTER 2025-02-07 11:07 | Outpatient (AMB) | payer MEDICARE, SELFPAY ==
--- NOTE | 2025-02-07 11:45 | A.OFFVIS_ITS ---
VS Expanded 02/07/25 12:19 Height 5 ft 4 in Weight 90 lb 1.1 oz BMI 15.5 Intake Visit Reasons: Abnormal weight loss Allergies cat dander Allergy (Intermediate, Verified 02/11/25 11:12) Itchy Eyes/nasal congestion morphine Allergy (Intermediate, Verified 02/11/25 11:12) Flushing-facial Seasonal Allergies Allergy (Intermediate, Verified 02/11/25 11:12) Itchy Eyes Nutrition Presentation Details: Pt presents for MNT for unintended wt loss, referred by laboratory development technician specialist Pt presents with a friend/neighbor to this appt, who is helping with grocery shopping. Pt reports weight fluctuates between 90-100 lbs. (this is also the hx on [facility] wt record, in 2021 wt at 92lbs, in 2022 from 92-96 lbs, 2023 94 -100 lbs, in 2024- 90 lbs to 102 lbs , with 10 lb weight loss in the past month) Pt reports having hx of IBS and admits to having episodes of increased foods known to exacerbate IBS leading to increased diarrhea/upset stomach which then leads to tiredness and lack of appetite. Pt reports having high protein shakes which she may have if not having a meal (as a meal replacement). Gets up early 6 AM bagel butter or cream cheese cranberry juice or water 1pm : sandwich /peanut butter, jacques jerrell 7pm: pasta meal or sandwich or high protein shake snacks on yogurt, chocolate and ice cream, cookies alcohol - denies etoh----- physical activity- uses cane to walk Diagnosis Nutrition problem #1: malnutrition As related to (etiology) #1: inadequate oral intake and increased PRO needs As evidenced by (sign/symptom) #1: low BMI (recent 10 lb weight loss, bmi at 15.5 (02/07)) [facility] Medical History (Updated 02/15/25 @ 20:19 by Diamond Joiner, RD, LDN) IBS (irritable bowel syndrome) Cachexia Nasal sinus congestion Cricopharyngeal achalasia Spinal stenosis COPD (chronic obstructive pulmonary disease) Acute respiratory failure with hypoxia Femoral neck fracture GERD (gastroesophageal reflux disease) JANAY (generalized anxiety disorder) MDD (major depressive disorder) Pulmonary nodule Current smoker HTN (hypertension) Surgical History History of carotid endarterectomy History of third molar tooth extraction, class I edentulism Hx of bilateral cataract extraction History of total left hip arthroplasty Hx of colonoscopy History of esophagogastroduodenoscopy (EGD) History of cervical discectomy Family History Father Lung cancer Brain cancer Mother CVD (cardiovascular disease) Breast cancer Son In good health Brother In good health Social History Household Members: None Household Members Other:: brother lives downstairs Housing: House Housing Other:: upper level of 2 family home-brother lives on lower level Are you a primary manager long term care to a significant other at home: No Do you presently have visiting nurse or other home services: No Alcohol intake: current Alcohol intake frequency: a few times a month Patient Tobacco Use Status: Current everyday Tobacco user Tobacco use type: Cigarette Cigarette Packs Per Day: 1 Cigarettes Per Day: 20 Years Smoked: 38 e-Cigarette/Vaping Use: Never Used Second Hand Smoke Exposure: Yes Advance Directives Date on File: 10/21/22 service: No Current occupational status: retired Cognitive needs: No Hearing needs: No Vision needs: No Assessment & Plan Assessment & Plan (1) Unintended weight loss: Comment: recent wt loss of 10 bs in 1 month (in the month of January- Per pt related to increased intake of foods known to exacerbate IBS symptoms Code(s): R63.4 - Abnormal weight loss Category: Medical Plan: Wt: 41 Kg ( 02/07 ) Est kcal needs as per MSJ: 1200 +500 = 1700 (40% carb, 30% protein/fat) Est fluid needs as per 25-30 ml/d: 1200 Est prot per day as per 1-1.2 g/kg bw: 40- 50 Recommend fiber intake : 8-10 g per day and gradually increase to 25-28 g per day for women and 35-38 g for men or as tolerated Recommend sodium intake per day : less than 2300 mg Educated patient on: Reduction of IBS symptoms - choosing lactose free foods to lessen IBS symptoms - include protein sources of foods -Hydration Patient Instructions: Choose lactose free food options (lactose free ice cream or soy ice cream or high protein yogurt ) Keep hydrated by having broth, soups (add eggs into soup/broth for protein) Try to have your meals (3 meals per day ) and have 1 meal supplement in between meals vs as a meal replacement (other option to choose is fairlife milk at least 2 cups a day ) Coding Level of Care Code Nutr Indiv Intake (07845) Diagnoses Unintended weight loss R63.4 Time Spent (min) 30
[2025-02-07 12:19] VITALS: BMI 15.5
--- OUTSIDE RECORDS SUMMARY | 2025-02-07 12:33 | XMS_ITS | Clinical Summary ---
Author Organization [facility] Facility Address [address] [place] [address] Care Team Providers Care Vegetable Sorter Name Role Phone Michel Dodd Primary Care Provider [phone] Social History Tobacco Use Types Packs/Day Years [...] patient's age to complete this topic Insurance [facility] Medicare [facility] Medicare Care Teams Vegetable Sorter Relationship Specialty Start Date End Date Michel Dodd PA [address] [facility], [address] [place] [address] PCP - General Physician Director Cardiovascular 02/24/23
--- OUTSIDE RECORDS SUMMARY | 2025-02-07 12:33 | XMS_ITS | Clinical Summary ---
Author Organization [facility] Address [address] [place], [place] [id number] Phone Care Team Providers Care Dental Ceramist Helper Name Role Phone Chula Patton MD Primary Care Provider [phone] Social History Tobacco Use Types Packs/Day Years [...] file Medical Devices Not on file Insurance [facility] MEDICARE REPLACEMENT MEDICARE REPLACEMENT [place] [address] [place] [address] MEDICARE REPLACEMENT [facility] MEDICARE REPLACEMENT [facility] MEDICARE REPLACEMENT Care Teams Dental Ceramist Helper Relationship Specialty Start Date End Date Chula Patton MD [address] [place] [phone] [email or web address] PCP - General Internal Medicine 10/25/22 Additional Source Comments The information contained in this document represents components of the legal health record. It is not the complete legal health record.[facility]
== END 2025-02-07 12:50 | disposition home or self-care (01) ==
LOC: HO.ENCR 11:11
PROVIDERS: PCP Physician Assistant; Visit Provider Dietitian, Registered
DX: R63.4 Abnormal weight loss (principal)

== ENCOUNTER → 2025-02-07 11:07 | Outpatient (BNVA) | payer MEDICARE, SELFPAY | PROVIDERS: PCP Physician Assistant; Visit Provider Dietitian, Registered | DX: Z71.3 Dietary counseling and surveillance (principal); R63.4 Abnormal weight loss | CPT/HCPCS: 97802 ==

== ENCOUNTER 2025-02-10 16:48 | Outpatient (REF) | payer MEDICARE, SELFPAY ==
--- NOTE | ~2025-02-10 | XR_ITS ---
EXAMINATION: XR WRIST 3 OR MORE VIEWS LEFT HISTORY: M25.532 - Pain in left wrist COMPARISON: Comparison is made with the prior examination dated 01/14/2025. FINDINGS: Three views of the left breast are submitted. Osseous mineralization is normal. Again seen is an impacted fracture of the distal radial metaphysis. The appearances not significantly changed from the prior study. Again seen is moderate degenerative change of the 1st carpometacarpal joint. The soft tissues are unremarkable. XR/XR wrist LT min 3V IMPRESSION: Impacted fracture of the distal radial metaphysis without significant change. Electronically signed by: Sal Paul MD 02/11/2025 11:29 AM EDT
--- OUTSIDE RECORDS SUMMARY | 2025-02-10 16:51 | XMS_ITS | Clinical Summary ---
Author Organization [facility] Address [address] [place], [place] [address] Phone Care Team Providers Care Supervisor Chassis Assembly Name Role Phone Chula Patton MD Primary Care Provider [phone] Social History Tobacco Use Types Packs/Day Years [...] file Medical Devices Not on file Insurance [facility] MEDICARE REPLACEMENT MEDICARE REPLACEMENT MEDICARE [place] [address] [address] MEDICARE REPLACEMENT [facility] MEDICARE REPLACEMENT [facility] MEDICARE REPLACEMENT Care Teams Supervisor Chassis Assembly Relationship Specialty Start Date End Date Chula Patton MD [address] [place] [phone] [email or web address] PCP - General Internal Medicine 10/25/22 Additional Source Comments The information contained in this document represents components of the legal health record. It is not the complete legal health record.[facility]
--- OUTSIDE RECORDS SUMMARY | 2025-02-10 16:51 | XMS_ITS | Clinical Summary ---
Author Organization [facility] Facility Address [address] [place] [address] Care Team Providers Care Transport Manager Name Role Phone Michel Dodd Primary Care Provider [phone] Social History Tobacco Use Types Packs/Day Years [...] patient's age to complete this topic Insurance [facility] Medicare [facility] Medicare Care Teams Transport Manager Relationship Specialty Start Date End Date Michel Dodd PA [address] [facility], [address] [place] [address] PCP - General Physician Crown Assembly Machine Operator 02/24/23
== END 2025-02-10 16:49 | disposition home or self-care (01) ==
LOC: HO.HOSX 16:48
DX: M25.532 Pain in left wrist (principal)
CPT/HCPCS: 73110

== ENCOUNTER 2025-02-11 10:26 | Outpatient (AMB) | payer MEDICARE, SELFPAY ==
--- NOTE | 2025-02-11 11:06 | MHC.OFFVIS ---
Vital Signs 02/11/25 11:13 Height 5 ft 4 in Weight 90 lb BMI 15.4 Intake Visit Reasons: OV-Left Distal Radius Fx 12/16/24-w/xray Intake Note: Leslie is a 69 year old right hand dominant female who presents today for a follow up of her Left Distal Radius Fracture, DOI: 12/16/24. At her last visit she was placed in a Velcro wrist brace to be worn like a cast for one more week and with daytime activities thereafter. Today, patient reports she continues wearing Velcro wrist brace, removing it for ROM. She complains of pain on the posterior aspect of the elbow and the radial and ulnar aspect of the left wrist. She also complains of numbness and tingling of some of her digits, cannot recall if she was experiencing this prior to the fracture. She is now taking Tramadol PRN, prescribed by PCP. Accompanied by: Daughter Allergies cat dander Allergy (Intermediate, Verified 02/11/25 11:12) Itchy Eyes/nasal congestion morphine Allergy (Intermediate, Verified 02/11/25 11:12) Flushing-facial Seasonal Allergies Allergy (Intermediate, Verified 02/11/25 11:12) Itchy Eyes HPI HPI OV-Left Distal Radius Fx 12/16/24-w/xray: Details: Leslie is a 69 year old right hand dominant female who presents today for a follow up of her Left Distal Radius Fracture, DOI: 12/16/24. At her last visit she was placed in a Velcro wrist brace to be worn like a cast for one more week and with daytime activities thereafter. Today, patient reports she continues wearing Velcro wrist brace, removing it for ROM. She complains of pain on the posterior aspect of the elbow and the radial and ulnar aspect of the left wrist. She also complains of numbness and tingling of some of her digits, cannot recall if she was experiencing this prior to the fracture. She is now taking Tramadol PRN, prescribed by PCP. [facility] Medical History (Updated 02/01/25 @ 11:26 by Michel Dodd PA-C) IBS (irritable bowel syndrome) Cachexia Nasal sinus congestion Cricopharyngeal achalasia Spinal stenosis COPD (chronic obstructive pulmonary disease) Acute respiratory failure with hypoxia Femoral neck fracture GERD (gastroesophageal reflux disease) JANAY (generalized anxiety disorder) MDD (major depressive disorder) Pulmonary nodule Current smoker HTN (hypertension) Surgical History History of carotid endarterectomy History of third molar tooth extraction, class I edentulism Hx of bilateral cataract extraction History of total left hip arthroplasty Hx of colonoscopy History of esophagogastroduodenoscopy (EGD) History of cervical discectomy Family History Father Lung cancer Brain cancer Mother CVD (cardiovascular disease) Breast cancer Son In good health Brother In good health Social History Household Members: None Household Members Other:: brother lives downstairs Housing: House Housing Other:: upper level of 2 family home-brother lives on lower level Are you a primary patient centered care specialist to a significant other at home: No Do you presently have visiting nurse or other home services: No Alcohol intake: current Alcohol intake frequency: a few times a month Patient Tobacco Use Status: Current everyday Tobacco user Tobacco use type: Cigarette Cigarette Packs Per Day: 1 Cigarettes Per Day: 20 Years Smoked: 38 e-Cigarette/Vaping Use: Never Used Second Hand Smoke Exposure: Yes Advance Directives Date on File: 10/21/22 service: No Current occupational status: retired Cognitive needs: No Hearing needs: No Vision needs: No Review of Systems Const All systems reviewed & are unremarkable except as noted in HPI and below Physical Exam Vital Signs: BMI result Body Mass Index 15.4 Const General: cooperative and no acute distress Orientation/consciousness: oriented to person and oriented to place HEENT Head: Yes normocephalic and Yes atraumatic Eyes EOM: EOMs intact bilaterally Resp Effort & Inspection: normal respiratory effort and able to speak in complete sentences Cardio Jugular venous distension: no JVD Skin General skin exam: turgor normal Rashes: no rashes Neuro General: oriented to person and oriented to place Extrem Other: Evaluation of left Upper Extremity: Patient was ambulating with a cane, and needed her lfhjyoj-de-amp to steady her as she was somewhat wobbly on her feet. He says this is due to her low back issues. She is somewhat pale and has COPD. She reports that she is still a smoker. She is 5 ft 4 and weighs 100 lb. Sensation intact to the tips of all digits and cap refill is brisk. No tenderness to palpation about fracture site Previously noted pressure points from cast appear to have resolved without issue She Can bring fingers closed to a fist and back out to full or nearly full extension. Radiographs: Three views of the left wrist were taken today in clinic and reviewed by me. These were also compared with her radiographs from 12/16/2024. They show a distal metaphyseal fracture of the left distal radius. She has got a few mm of dorsal translation as well as some loss of radial inclination. Alignment on the lateral is essentially at neutral to perhaps 1 or 2 degrees of dorsal tilt. Good bony contact and overall satisfactory fracture alignment. There is evidence of interval bony healing at this time Psych Appearance: grossly normal Affect: normal affect Attitude: cooperative Assessment & Plan Assessment & Plan (1) Distal radius fracture, left: Code(s): S52.502A - Unspecified fracture of the lower end of left radius, initial encounter for closed fracture Category: Medical Qualifiers: Encounter type: subsequent encounter Fracture healing: with delayed healing Fracture morphology: other fracture Fracture type: closed Qualified Code(s): S52.592G - Other fractures of lower end of left radius, subsequent encounter for closed fracture with delayed healing Plan Assessment and plan: 1. Left distal radius fracture Date of injury 12/16/2024, status post reduction in the emergency department I educated the patientabout this injury We did discuss operative and non operative treatment options. We can certainly treat this operatively, but I think that there is also a good chance that we can treat this satisfactorily without surgery. She also has COPD and other medical comorbidities. They would like to treat this non operatively. I talked to him about the importance of activity modification and not doing anything with that left hand and then working on finger range of motion. Patient should continue wearing the Velcro wrist splint with daytime activities After one-week, can begin to work on early gentle range of motion of the left wrist Patient is educated that due to her decision to not have surgery, as well as her current cigarette smoking, her healing will likely take longer than a patient who does not smoke cigarettes, and will likely not be in full anatomical alignment Follow-up in 4-6 weeks with repeat x-rays for reassessment, sooner with any acute concerns Orders: Orders XR wrist LT min 3V Today M25.532 - Pain in left wrist OT Evaluation and Treatment Today S52.592G - Other fractures of lower end of left radius, subsequent encounter for closed fracture with delayed healing Coding Level of Care Code Global (23438) Diagnoses Other closed fracture of distal end of left radius with delayed healing, subsequent encounter S52.592G Encounter type: subsequent encounter Fracture healing: with delayed healing Fracture morphology: other fracture Fracture type: closed
--- OUTSIDE RECORDS SUMMARY | 2025-02-11 11:08 | XMS_ITS | Clinical Summary ---
Author Organization [facility] Address [address] [place], [place] [id number] Phone Care Team Providers Care Stores Clerk Name Role Phone Chula Patton MD Primary Care Provider [phone] Social History Tobacco Use Types Packs/Day Years [...] file Medical Devices Not on file Insurance [facility] MEDICARE REPLACEMENT MEDICARE REPLACEMENT MEDICARE [place] [address] [place] [address] [facility] MEDICARE [facility]PLACEMENT [facility] MEDICARE REPLACEMENT Care Teams Stores Clerk Relationship Specialty Start Date End Date Chula Patton MD [address] [place] [phone] [email or web address] PCP - General Internal Medicine 10/25/22 Additional Source Comments The information contained in this document represents components of the legal health record. It is not the complete legal health record.[facility]
--- OUTSIDE RECORDS SUMMARY | 2025-02-11 11:08 | XMS_ITS | Clinical Summary ---
Author Organization [facility] Facility Address [address] [place] [address] Care Team Providers Care Diesel Instructor Name Role Phone Michel Dodd Primary Care Provider [phone] Social History Tobacco Use Types Packs/Day Years [...] patient's age to complete this topic Insurance [facility] Medicare [facility] Medicare Care Teams Diesel Instructor Relationship Specialty Start Date End Date Michel Dodd PA [address] [facility], [address] [place] [address] PCP - General Physician Deburring Machine Operator 02/24/23
[2025-02-11 11:13] VITALS: BMI 15.4
== END 2025-02-11 11:36 | disposition home or self-care (01) ==
LOC: HO.HOS 10:27
DX: S52.592G Other fractures of lower end of left radius, subsequent encounter for closed fracture with delayed healing (principal)
CPT/HCPCS: 99024

== ENCOUNTER → 2025-02-11 10:26 | Outpatient (BNVA) | payer MEDICARE, SELFPAY | DX: M25.532 Pain in left wrist (principal); S52.502G Unspecified fracture of the lower end of left radius, subsequent encounter for closed fracture with delayed healing; W01.0XXD Fall on same level from slipping, tripping and stumbling without subsequent striking against object, subsequent encounter; Y93.01 Activity, walking, marching and hiking; Y92.007 Garden or yard of unspecified non-institutional (private) residence as the place of occurrence of the external cause; Y99.9 Unspecified external cause status; R20.0 Anesthesia of skin; R20.2 Paresthesia of skin | CPT/HCPCS: 99212 ==

== ENCOUNTER → 2025-02-11 10:50 | Outpatient (BNV) | payer MEDICARE, SELFPAY | PROVIDERS: Visit Provider Radiology Diagnostic Radiology | DX: S52.502A Unspecified fracture of the lower end of left radius, initial encounter for closed fracture (principal) | CPT/HCPCS: 73110 ==

== ENCOUNTER 2025-02-21 13:37 | Outpatient (AMB) | payer MEDICARE, SELFPAY ==
--- NOTE | 2025-02-21 13:40 | MHC.OFFVIS ---
Vital Signs 02/21/25 13:41 Height 5 ft 4 in Weight 84 lb BMI 14.4 BP 200/102 H Blood Pressure Location Rt brachial Position Sitting Respiration 16 Pulse 105 H Pulse Source Pulse Oximeter Pulse Oximetry (%) 94 Oxygen Delivery Method Room Air Intake Visit Reasons: Back Pain Intake Note: Pt's BP grossly elevated - taken manually, left arm 182/102, right arm 200/102. Pt states she does take her medication, but has not been monitoring it at home Allergies cat dander Allergy (Intermediate, Verified 02/21/25 13:46) Itchy Eyes/nasal congestion morphine Allergy (Intermediate, Verified 02/21/25 13:46) Flushing-facial Seasonal Allergies Allergy (Intermediate, Verified 02/21/25 13:46) Itchy Eyes Medication List - Last Reconciled 02/21/25 by Ofelia Clarke LPN acetaminophen 650 mg (2 x 325 mg) PO Q6H PRN 30 days albuterol sulfate 90 mcg/actuation 1 puff inhalation QID PRN albuterol sulfate 2.5 mg (3 mL) inhalation Q6H PRN 30 days aspirin 325 mg PO DAILY PRN atorvastatin 10 mg PO DAILY back brace As directed baclofen 10 mg PO BID PRN 30 days blood pressure test kit-small As directed cholecalciferol (vitamin D3) 50 mcg PO DAILY cyclobenzaprine 5 mg PO BID PRN 15 days Held on 05/31/24. Instructions: Doctor's Order ipratropium-albuterol 0.5 mg-3 mg(2.5 mg base)/3 mL 3 mL inhalation BID PRN lorazepam 0.5 mg PO DAILY PRN 4 days magnesium oxide 400 mg PO DAILY 90 days metoprolol succinate ER 25 mg (1/2 x 50 mg) PO DAILY mirtazapine 15 mg PO BEDTIME 90 days montelukast 10 mg PO DAILY multivitamin 1 tab PO DAILY omeprazole 40 mg PO DAILY ondansetron HCl 4 mg PO Q8H PRN 7 days oxybutynin chloride ER 10 mg PO DAILY 30 days tramadol 50 mg PO BID 5 days HPI HPI Back Pain: Details: History of Present Illness The patient is a 70-year-old female presenting with chronic back pain. The back pain has been persistent and has significantly impacted her daily activities, causing discomfort throughout her body. She has a history of lumbar spondylosis and a compression fracture, which have not responded to conservative management. The patient also has a history of osteoporosis, which contributes to her frail bones and frequent fractures. She has experienced a hip fracture requiring replacement and a wrist fracture, both of which have added to her pain and mobility issues. In addition, she has a history of carotid artery stenosis, for which she underwent a carotid endarterectomy. Her medical history is further complicated by asthma, which has posed challenges for surgical interventions requiring anesthesia. Pain Description - Chronic back pain causing discomfort throughout the body - Pain exacerbated by fractures and osteoporosis - Relieved temporarily by Tylenol or aspirin Physical Exam - Appears afebrile. - Alert and oriented. - Mood and affect appropriate. - Follows and participates in conversation appropriately. - Respiratory effort is unlabored. Results Pain Management - Affect: Pain significantly impacts daily activities and overall wellbeing. - Analgesia: Currently using Tylenol or aspirin for pain relief. - Adverse Effects: No specific adverse effects from current pain management reported. - Activities of Daily Living: Pain interferes with mobility and daily functions. - Aberrant Drug Related Behaviors: No aberrant behaviors reported. [facility] Medical History (Updated 02/23/25 @ 12:54 by Bruno Grewal MD) IBS (irritable bowel syndrome) Cachexia Nasal sinus congestion Cricopharyngeal achalasia Spinal stenosis COPD (chronic obstructive pulmonary disease) Acute respiratory failure with hypoxia Femoral neck fracture GERD (gastroesophageal reflux disease) JANAY (generalized anxiety disorder) MDD (major depressive disorder) Pulmonary nodule Current smoker HTN (hypertension) Surgical History History of carotid endarterectomy History of third molar tooth extraction, class I edentulism Hx of bilateral cataract extraction History of total left hip arthroplasty Hx of colonoscopy History of esophagogastroduodenoscopy (EGD) History of cervical discectomy Family History Father Lung cancer Brain cancer Mother CVD (cardiovascular disease) Breast cancer Son In good health Brother In good health Social History Household Members: None Household Members Other:: brother lives downstairs Housing: House Housing Other:: upper level of 2 family home-brother lives on lower level Are you a primary manager intensive care unit to a significant other at home: No Do you presently have visiting nurse or other home services: No Alcohol intake: current Alcohol intake frequency: a few times a month Patient Tobacco Use Status: Current everyday Tobacco user Tobacco use type: Cigarette Cigarette Packs Per Day: 1 Cigarettes Per Day: 20 Years Smoked: 38 e-Cigarette/Vaping Use: Never Used Second Hand Smoke Exposure: Yes Advance Directives Date on File: 10/21/22 service: No Current occupational status: retired Cognitive needs: No Hearing needs: No Vision needs: No Physical Exam Vital Signs: Last Vital Signs Pulse 105 H 02/21/25 13:41 Resp 16 02/21/25 13:41 BP 200/102 H 02/21/25 13:41 Pulse Ox 94 02/21/25 13:41 Oxygen Delivery Method Room Air 02/21/25 13:41 BMI result Body Mass Index 14.4 Assessment & Plan Assessment & Plan (1) Lumbar spondylosis: Code(s): M47.816 - Spondylosis without myelopathy or radiculopathy, lumbar region Category: Medical (2) L1 vertebral fracture: Code(s): S32.019A - Unspecified fracture of first lumbar vertebra, initial encounter for closed fracture Category: Medical (3) Chronic pain: Code(s): G89.29 - Other chronic pain Category: Medical Plan Plan Patient was informed and verbally consented to the use of an ambient scribe for clinic note documentation during this visit. 1. Chronic Pain - Plan to resubmit authorization request for nerve stimulator for chronic low back pain that is still stands on resolved. - Discussed nerve stimulator as a temporary insert for pain relief, with potential relief lasting 6 to 12 months. She is not a candidate for corticosteroid therapy due to significant osteoporosis. - Dressing changes required post-procedure, with assistance available from family or clinic. 2. Lumbar Spondylosis - Consideration of nerve stimulator for management due to lack of response to conservative treatments. 3. Compression Fracture - Managed conservatively; nerve stimulator considered for pain relief. 4. Osteoporosis - Acknowledged as contributing to frail bones and fractures; no specific plan discussed. 5. Carotid Artery Stenosis - History of carotid endarterectomy; no current issues discussed. 6. Hip Fracture And Replacement - Previous hip replacement noted; no current issues discussed. 7. Wrist Fracture - Managed with brace and analgesics; no surgical intervention planned. 8. Asthma - Considered in procedural planning due to anesthesia concerns. Discussion Notes I discussed with the patient the plan to resubmit the authorization request for the nerve stimulator, explaining that it is a temporary insert that could provide pain relief for 6 to 12 months if effective. We reviewed the need for dressing changes post-procedure and the possibility of assistance from family or clinic staff. I also provided information on the potential outcomes and the 30% chance that the stimulator might not work, in which case alternative options would be considered. Patient Instructions - Follow up with insurance regarding coverage and billing issues. - Prepare for potential nerve stimulator procedure, including arranging for dressing changes. - Continue current pain management with Tylenol or aspirin as needed. Coding Level of Care Code Est Pt Level 4 (38133) Diagnoses Lumbar spondylosis M47.816 L1 vertebral fracture S32.019A Chronic pain G89.29
[2025-02-21 13:41] VITALS: BP 200/102; PULSE 105; RESP 16; O2SAT 94; BMI 14.4
--- OUTSIDE RECORDS SUMMARY | 2025-02-21 15:51 | XMS_ITS | Clinical Summary ---
Author Organization [facility] Address [address] [place], [place] [id number] Phone Care Team Providers Care Ribbon Weaver Name Role Phone Chula Patton MD Primary Care Provider [phone] Social History Tobacco Use Types Packs/Day Years [...] file Medical Devices Not on file Insurance [facility] MEDICARE REPLACEMENT MEDICARE REPLACEMENT MEDICARE [place] [address] [place] [address] MEDICARE REPLACEMENT [facility] MEDICARE REPLACEMENT [facility] MEDICARE REPLACEMENT Care Teams Ribbon Weaver Relationship Specialty Start Date End Date Chula Patton MD [address] [place] [id number] [email or web address] PCP - General Internal Medicine 10/25/22 Additional Source Comments The information contained in this document represents components of the legal health record. It is not the complete legal health record.[facility]
--- OUTSIDE RECORDS SUMMARY | 2025-02-21 15:51 | XMS_ITS | Clinical Summary ---
Author Organization [facility] Facility Address [address] [place] [address] Care Team Providers Care Rough Rib Grader Name Role Phone Michel Dodd Primary Care Provider [phone] Social History Tobacco Use Types Packs/Day Years [...] patient's age to complete this topic Insurance [facility] Medicare [facility] Medicare Care Teams Rough Rib Grader Relationship Specialty Start Date End Date Michel Dodd PA [address] [facility], [address] [place] [address] PCP - General Physician Network Control Technician 02/24/23
--- OUTSIDE RECORDS SUMMARY | 2025-02-21 15:51 | XMS_ITS ---
Author Organization [facility] Care Team Providers Care Review Trainer Name Role Phone Rupinder Frias Unavailable Unavailable Grupo Brown Unavailable Unavailable Víctor Salvador Unavailable Unavailable Ketty Gold Unavailable Unavailable Leroy Ramirez Unavailable Unavailable Allergies and adverse reactions Code CodeSystem Substance Reaction Severity StartDate Concern Status seasonal allergies Unknown 02/25/2023 ac tive 7052 RXNORM Morphine Unknown 02/25/2023 active Cats Unknown 02/25/2023 active Care Team Name Role Address Phone Organization Dates Leroy Ramirez PCP [address] [place] [address], [id number], [facility] (Office): : [facility] 03/14/2023 - 03/14/2023 Rupinder Frias [address] [place] [address], [id number], [facility] (Office): : [facility] 03/14/2023 - 03/14/[address] [facility], [place], [address], [place] (Office): : [facility] 03/14/2023 - 03/14/2023 Víctor M [place] [address], [place], [address], [place] (Office): : : [facility] 03/14/2023 - 03/14/2023 Ketty Gold [address] [facility] [address], [place], [address], [facility] (Office): : [facility] 03/14/2023 - 03/14/2023 Immunizations Immunization Status Vaccine Details Vaccine Code CodeSystem Date Notes TB 2 Step Mantoux Skin Test completed tuberculin skin test; unspecified formulation lotNumber: [id number] expiry: 03/05/2024 Mfg: par pharmaceutical Given 0.1 ml Right Forearm intradermally Step 1 of Multi-step 98 CVX created date: 03/04/2023 consent date: 03/04/2023 administere d date: 03/04/2023 TB 2 Step Mantoux Skin Test completed tuberculin skin test; unspecified formulation lotNumber: [id number] expiry: 11/14/2023 Mfg: Alpisiol Given 0.1 ml Left Forearm intradermally Step 1 of Multi-step with next step required 98 CVX created date: 02/26/2023 consent date: 02/26/2023 administere d date: 02/26/2023 Mental Status Section Date Assessment Total Score Description 03/14/2023 CAM 0 No delirium ind icated 03/13/2023 CAM 0 No delirium ind icated Problems Problem # Description Date of onset Resolved Date Code CodeSystem Concern Status 1 ACUTE RESPIRATORY FAILURE WITH HYPOXIA 02/25/[address] active 2 ANXIETY DISORDER, UNSPECIFIED 02/25/[address] active 3 CHRONIC OBSTRUCTIVE PULMONARY DISEASE, UNSPECIFIED 02/25/[address] active 4 DEPRESSION, UNSPECIFIED 02/25/[address] active 5 DISPLACED FRACTURE OF BASE OF NECK OF LEFT FEMUR, SUBSEQUENT ENCOUNTER FOR CLOSED FRACTURE WITH ROUTINE HEALING 02/25/[address] active 6 ENCOUNTER FOR OTHER ORTHOPEDIC AFTERCARE 02/25/[address] active 7 ESSENTIAL (PRIMARY) HYPERTENSION 02/25/[address] active 8 GASTRO-ESOPHAGEAL REFLUX DISEASE WITHOUT ESOPHAGITIS 02/25/[address] active 9 LOW BACK PAIN, UNSPECIFIED 02/25/[address] active 10 OTHER INTERVERTEBRAL DISC DEGENERATION, LUMBAR REGION 02/25/[address] active 11 REPEATED FALLS 02/25/[address] ac tive 12 SOLITARY PULMONARY NODULE 02/25/[address] active Reason for Referral No Reasons for Referral Entered Social History Social History Observation Description Start Date End Date Code Code System Current Smoking Status Tobacco smoking consumption unknown 961998394 SNOMED CT Sex Assigned At Female 1955 89404-9 [facility] Gender Identity Vital Signs Code Code System Vitals Name Values and Units Timing Information 34405-2 [facility] Pain Level Value=8.0 03/14/2023 29286-3 [facility] Weight Value=97.4 Units=Lbs 02/15 9279-1 [facility] Respiratory Rate Value=18.0 Units=/m in 03/14/2023 8462-4 [facility] Blood Pressure-Diastolic Value=70 Un its=mmHg 03/14/2023 8480-6 [facility] Blood Pressure-Systolic Hosib=519 Un its=mmHg 03/14/2023 8310-5 [facility] Body Temperature Value=97.4 Units= F 03/14/2023 8867-4 [facility] Heart rate Value=82.0 Units=/min 64590-3 [facility] O2 % BldC Oximetry Value=95.0 Units= % 03/13/2023 8302-2 [facility] Height Value=62.0 Units=Inches 02/26/2023 2339-0 [facility] Blood Sugar Wdquk=460.0 Units=mg/dL 02/26/2023
== END 2025-02-21 14:09 | disposition home or self-care (01) ==
LOC: HO.PMC 13:38
PROVIDERS: PCP Physician Assistant; Visit Provider Internal Medicine
DX: M47.816 Spondylosis without myelopathy or radiculopathy, lumbar region (principal); S32.019A Unspecified fracture of first lumbar vertebra, initial encounter for closed fracture; G89.29 Other chronic pain
CPT/HCPCS: 99214

== ENCOUNTER → 2025-02-21 13:37 | Outpatient (BNVA) | payer MEDICARE, SELFPAY | PROVIDERS: PCP Physician Assistant; Visit Provider Internal Medicine | DX: M47.816 Spondylosis without myelopathy or radiculopathy, lumbar region (principal); S32.019A Unspecified fracture of first lumbar vertebra, initial encounter for closed fracture; G89.29 Other chronic pain; M81.0 Age-related osteoporosis without current pathological fracture; J45.909 Unspecified asthma, uncomplicated | CPT/HCPCS: 99212 ==

== ENCOUNTER 2025-03-14 09:11 | Outpatient (REF) | payer MEDICARE, SELFPAY ==
--- NOTE | ~2025-03-14 | XR_ITS ---
EXAMINATION: XR WRIST 3 OR MORE VIEWS LEFT HISTORY: M25.532 - Pain in left wrist COMPARISON: Comparison is made with the prior examination dated 02/11/2025. FINDINGS: Three views of the left wrist are submitted. Osseous mineralization is normal. Again seen is an impacted fracture of the distal radial metaphysis. There is greater callus formation noted, consistent with healing. There is moderate osteoarthritis of the 1st carpometacarpal joint. The soft tissues are unremarkable. XR/XR wrist LT min 3V IMPRESSION: Healing impacted fracture of the distal radial metaphysis. Electronically signed by: Sal Paul MD 03/14/2025 10:33 AM EDT
--- OUTSIDE RECORDS SUMMARY | 2025-03-14 10:28 | XMS_ITS | Clinical Summary ---
Author Organization [facility] Address [address] [place] [address] Care Team Providers Care Customer Support Agent Name Role Phone Michel Dodd Primary Care Provider [phone] Social History Tobacco Use Types Packs/Day Years [...] patient's age to complete this topic Insurance [facility] Medicare [facility] Medicare Care Teams Customer Support Agent Relationship Specialty Start Date End Date Michel Dodd PA [address] [facility], [address] [place] [address] PCP - General Physician Talent Acquisition Assistant 02/24/23
== END 2025-03-14 09:12 | disposition home or self-care (01) ==
LOC: HO.HOSX 09:11
PROVIDERS: PCP Physician Assistant
DX: S52.592G Other fractures of lower end of left radius, subsequent encounter for closed fracture with delayed healing (principal); X58.XXXD Exposure to other specified factors, subsequent encounter
CPT/HCPCS: 73110; 99212

== ENCOUNTER 2025-03-14 09:11 | Outpatient (AMB) | payer MEDICARE, SELFPAY ==
--- NOTE | 2025-03-14 09:13 | MHC.OFFVIS ---
Vital Signs 03/14/25 09:20 Height 5 ft 4 in Weight 84 lb BMI 14.4 Intake Visit Reasons: OV-Left Distal Radius Fx 12/16/24-w/xray Intake Note: Leslie is a 70 year old right hand dominant female who presents today for a follow up of her Left Distal Radius Fracture, DOI: 12/16/24. At her last visit she was advised to continue Velcro wrist brace with daytime activities and to begin gentle range of motion of the left wrist. Referral placed to Occupational Therapy. Patient reports today she never received a call from OT. However, she states she feels great and has been wearing her wrist brace with breaks to work on range of motion. She takes Tylenol and Aspirin for other health problems. She reports some discomfort along the radial aspect of the left wrist. Allergies cat dander Allergy (Intermediate, Verified 03/14/25 09:14) Itchy Eyes/nasal congestion morphine Allergy (Intermediate, Verified 03/14/25 09:14) Flushing-facial Seasonal Allergies Allergy (Intermediate, Verified 03/14/25 09:14) Itchy Eyes HPI HPI OV-Left Distal Radius Fx 12/16/24-w/xray: Details: Leslie is a 70 year old right hand dominant female who presents today for a follow up of her Left Distal Radius Fracture, DOI: 12/16/24. At her last visit she was advised to continue Velcro wrist brace with daytime activities and to begin gentle range of motion of the left wrist. Referral placed to Occupational Therapy. Patient reports today she never received a call from OT. However, she states she feels great and has been wearing her wrist brace with breaks to work on range of motion. She takes Tylenol and Aspirin for other health problems. She reports some discomfort along the radial aspect of the left wrist. [facility] Medical History (Updated 02/23/25 @ 12:54 by Bruno Grewal MD) IBS (irritable bowel syndrome) Cachexia Nasal sinus congestion Cricopharyngeal achalasia Spinal stenosis COPD (chronic obstructive pulmonary disease) Acute respiratory failure with hypoxia Femoral neck fracture GERD (gastroesophageal reflux disease) JANAY (generalized anxiety disorder) MDD (major depressive disorder) Pulmonary nodule Current smoker HTN (hypertension) Surgical History History of carotid endarterectomy History of third molar tooth extraction, class I edentulism Hx of bilateral cataract extraction History of total left hip arthroplasty Hx of colonoscopy History of esophagogastroduodenoscopy (EGD) History of cervical discectomy Family History Father Lung cancer Brain cancer Mother CVD (cardiovascular disease) Breast cancer Son In good health Brother In good health Social History Household Members: None Household Members Other:: brother lives downstairs Housing: House Housing Other:: upper level of 2 family home-brother lives on lower level Are you a primary long term acute care registered nurse to a significant other at home: No Do you presently have visiting nurse or other home services: No Alcohol intake: current Alcohol intake frequency: a few times a month Patient Tobacco Use Status: Current everyday Tobacco user Tobacco use type: Cigarette Cigarette Packs Per Day: 1 Cigarettes Per Day: 20 Years Smoked: 38 e-Cigarette/Vaping Use: Never Used Second Hand Smoke Exposure: Yes Advance Directives Date on File: 10/21/22 service: No Current occupational status: retired Cognitive needs: No Hearing needs: No Vision needs: No Review of Systems Const All systems reviewed & are unremarkable except as noted in HPI and below Physical Exam Vital Signs: BMI result Body Mass Index 14.4 Const General: cooperative and no acute distress Orientation/consciousness: oriented to person and oriented to place HEENT Head: Yes normocephalic and Yes atraumatic Eyes EOM: EOMs intact bilaterally Resp Effort & Inspection: normal respiratory effort and able to speak in complete sentences Cardio Jugular venous distension: no JVD Skin General skin exam: turgor normal Rashes: no rashes Neuro General: oriented to person and oriented to place Extrem Other: Evaluation of left Upper Extremity: Patient was ambulating with a cane, and needed her [id number] to steady her as she was somewhat wobbly on her feet. He says this is due to her low back issues. She is somewhat pale and has COPD. She reports that she is still a smoker. She is 5 ft 4 and weighs 100 lb. Sensation intact to the tips of all digits and cap refill is brisk. No tenderness to palpation about fracture site patient does report that there is an uncomfortable sensation with palpation of the fracture site of the left wrist, but no acute pain Previously noted pressure points from cast appear to have resolved without issue She Can bring fingers closed to a fist and back out to full or nearly full extension. Radiographs: Three views of the left wrist were taken today in clinic and reviewed by me. These were also compared with her radiographs from 12/16/2024. They show a distal metaphyseal fracture of the left distal radius. She has got a few mm of dorsal translation as well as some loss of radial inclination. Alignment on the lateral is essentially at neutral to perhaps 1 or 2 degrees of dorsal tilt. Good bony contact and overall satisfactory fracture alignment. There is evidence of interval bony healing at this time Psych Appearance: grossly normal Affect: normal affect Attitude: cooperative Assessment & Plan Assessment & Plan (1) Distal radius fracture, left: Code(s): S52.502A - Unspecified fracture of the lower end of left radius, initial encounter for closed fracture Category: Medical Qualifiers: Encounter type: subsequent encounter Fracture type: closed Fracture morphology: other fracture Fracture healing: with delayed healing Qualified Code(s): S52.592G - Other fractures of lower end of left radius, subsequent encounter for closed fracture with delayed healing Plan Assessment and plan: 1. Left distal radius fracture Date of injury 12/16/2024, status post reduction in the emergency department I educated the patientabout this injury We did discuss operative and non operative treatment options. We can certainly treat this operatively, but I think that there is also a good chance that we can treat this satisfactorily without surgery. She also has COPD and other medical comorbidities. They would like to treat this non operatively. I talked to him about the importance of activity modification and not doing anything with that left hand and then working on finger range of motion. Patient should continue wearing the Velcro wrist splint with daytime activities After one-week, can begin to work on early gentle range of motion of the left wrist Patient is educated that due to her decision to not have surgery, as well as her current cigarette smoking, her healing will likely take longer than a patient who does not smoke cigarettes, and will likely not be in full anatomical alignment patient is educated that the deformity that is still present in the left wrist is likely to remain, and will not improve with time. Follow-up in 4-6 weeks with repeat x-rays for reassessment, sooner with any acute concerns Orders: Orders XR wrist LT min 3V Today M25.532 - Pain in left wrist Coding Level of Care Code Global (50826) Diagnoses Other closed fracture of distal end of left radius with delayed healing, subsequent encounter S52.592G Encounter type: subsequent encounter Fracture type: closed Fracture morphology: other fracture Fracture healing: with delayed healing
[2025-03-14 09:20] VITALS: BMI 14.4
--- OUTSIDE RECORDS SUMMARY | 2025-03-14 09:50 | XMS_ITS | Clinical Summary ---
Author Organization [facility] Address [address] [place], [place] [id number] Phone Care Team Providers Care Excavating Machine Operator Name Role Phone Chula Patton MD Primary Care Provider [phone] Social History Tobacco Use Types Packs/Day Years [...] file Medical Devices Not on file Insurance [facility] MEDICARE REPLACEMENT MEDICARE REPLACEMENT MEDICARE [place] [address] [place] [address] MEDICARE REPLACEMENT [facility] MEDICARE REPLACEMENT [facility] MEDICARE REPLACEMENT Care Teams Excavating Machine Operator Relationship Specialty Start Date End Date Chula Patton MD [address] [place] [id number] [email or web address] PCP - General Internal Medicine 10/25/22 Additional Source Comments The information contained in this document represents components of the legal health record. It is not the complete legal health record.[facility]
== END 2025-03-14 09:58 | disposition home or self-care (01) ==
LOC: HO.HOS 09:11
PROVIDERS: PCP Physician Assistant
DX: S52.592G Other fractures of lower end of left radius, subsequent encounter for closed fracture with delayed healing (principal)
CPT/HCPCS: 99024

== ENCOUNTER → 2025-03-14 09:38 | Outpatient (BNV) | payer MEDICARE, SELFPAY | PROVIDERS: PCP Physician Assistant; Visit Provider Radiology Diagnostic Radiology | DX: M25.532 Pain in left wrist (principal) | CPT/HCPCS: 73110 ==

== ENCOUNTER 2025-03-15 08:47 | Outpatient (AMB) | payer MEDICARE, SELFPAY ==
--- NOTE | 2025-03-15 08:49 | A.OFFPC_ITS ---
Vital Signs 03/15/25 08:51 03/15/25 09:31 Height 5 ft 4 in Weight 98 lb 4 oz BMI 16.9 BP 160/100 H 150/90 H Blood Pressure Location Lt brachial Position Sitting Pulse 80 Pulse Source Pulse Oximeter Temp 97.1 F Temp Source Temporal Artery Scan Pulse Oximetry (%) 93 Oxygen Delivery Method Room Air Intake Visit Reasons: follow up Intake Note: Patient is here to follow up on Chronic pain, IBS, HLD, HTN. Fitness Director Required: No Take Off Worker: Not Required per policy Accompanied by: Self / Same As Patient Allergies cat dander Allergy (Intermediate, Verified 03/15/25 09:01) Itchy Eyes/nasal congestion morphine Allergy (Intermediate, Verified 03/15/25 09:01) Flushing-facial Seasonal Allergies Allergy (Intermediate, Verified 03/15/25 09:01) Itchy Eyes Medication List - Last Reconciled 03/15/25 by Michel Dodd PA-C acetaminophen 650 mg (2 x 325 mg) PO Q6H PRN 30 days albuterol sulfate 90 mcg/actuation 1 puff inhalation QID PRN albuterol sulfate 2.5 mg (3 mL) inhalation Q6H PRN 30 days aspirin 325 mg PO DAILY PRN atorvastatin 10 mg PO DAILY back brace As directed baclofen 10 mg PO BID PRN 30 days blood pressure test kit-small As directed cholecalciferol (vitamin D3) 50 mcg PO DAILY cyclobenzaprine 5 mg PO BID PRN 15 days Held on 05/31/24. Instructions: Doctor's Order ipratropium-albuterol 0.5 mg-3 mg(2.5 mg base)/3 mL 3 mL inhalation BID PRN lisinopril 10 mg PO DAILY lorazepam 0.5 mg PO DAILY PRN 4 days magnesium oxide 400 mg PO DAILY 90 days metoprolol succinate ER 25 mg (1/2 x 50 mg) PO DAILY mirtazapine 15 mg PO BEDTIME 90 days montelukast 10 mg PO DAILY multivitamin 1 tab PO DAILY omeprazole 40 mg PO DAILY ondansetron HCl 4 mg PO Q8H PRN 7 days oxybutynin chloride ER 10 mg PO DAILY 30 days Tobacco use date assessed: 03/15/25 Fall risk assessment: 1 Fall in past year Last assessed Fall Risk: 03/15/25 Dental Screening Dental Screen Date: 07/06/24 HPI follow up HPI Details Patient is a 70-year-old female here today for a follow-up visit. Patient has a past medical history significant for hyperlipidemia, carotid stenosis, COPD, tobacco dependency, hypertension. Hypertension: Blood pressure is elevated today in office. Was previously elevated at her pain management clinic office visit (200/100). She has previously concerned about her blood pressures being too low thus we have stopped amlodipine.. Continues on lisinopril and metoprolol. The patient also reports significant peripheral edema, particularly in the ankles and feet, which are swollen and red. She describes her legs as feeling tough and her abdomen as distended, resembling , which she attributes to fluid retention. The edema is suspected to be related to possible heart failure, although previous heart tests were normal. PLAN; will add on Lasix 20 mg every other day to help with lower extremity edema in reducing blood pressure. Advised patient to monitor blood pressure daily .. Tobacco dependency: Unfortunately patient continues to smoke cigarettes does understand she needs to quit though has found it very difficult to do so. She understands her cardiovascular risks with continued smoking. .. .. Lumbar spine disease: Patient is followed by [facility] and is considering lumbar vertebral surgery. A compression fracture at L1 was identified in an MRI conducted in January 2023, following a fall several years ago Surgery and procedures has been placed on hold due to other medical issues that have presented. She is return back to seeing pain management rooms considering a spinal stimulator though patient is not interested in this. She reports she would like to see spine surgeon to [facility] for [facility]. Did explain to her she may not be a great candidate for surgery as she has multiple medical problems .. Severe osteoporosis: DEXA screening in 2022 showing severe osteoporosis. She was on Fosamax for short period of time though has stopped using this medication. She is willing to restart Fosamax once weekly. Will get a repeat bone density evaluate for any evolution of her osteoporosis [facility] Medical History IBS (irritable bowel syndrome) Cachexia Nasal sinus congestion Cricopharyngeal achalasia Spinal stenosis COPD (chronic obstructive pulmonary disease) Acute respiratory failure with hypoxia Femoral neck fracture GERD (gastroesophageal reflux disease) JANAY (generalized anxiety disorder) MDD (major depressive disorder) Pulmonary nodule Current smoker HTN (hypertension) Surgical History History of carotid endarterectomy History of third molar tooth extraction, class I edentulism Hx of bilateral cataract extraction History of total left hip arthroplasty Hx of colonoscopy History of esophagogastroduodenoscopy (EGD) History of cervical discectomy Family History Father Lung cancer Brain cancer Mother CVD (cardiovascular disease) Breast cancer Son In good health Brother In good health Social History Household Members: None Household Members Other:: brother lives downstairs Housing: House Housing Other:: upper level of 2 family home-brother lives on lower level Are you a primary care trainer to a significant other at home: No Do you presently have visiting nurse or other home services: No Alcohol intake: current Alcohol intake frequency: a few times a month Patient Tobacco Use Status: Current everyday Tobacco user Tobacco use type: Cigarette Cigarette Packs Per Day: 1 Cigarettes Per Day: 20 Years Smoked: 38 e-Cigarette/Vaping Use: Never Used Second Hand Smoke Exposure: Yes Advance Directives Date on File: 10/21/22 service: No Current occupational status: retired Cognitive needs: No Hearing needs: No Vision needs: No Questionnaire Thrive Questionnaire Date Thrive assessed: 07/06/24 I am a: Parent/Caregiver What is your living situation today?: I choose not to answer this question Within the past 12 months, did the food you bought not last and you didn't have the money to get more?: I choose not to answer this question Within the past 12 months, did you worry whether your food would run out before you got money to buy more?: I choose not to answer this question Do you have trouble paying for medicines?: Yes Do you have trouble getting transportation to medical appointments?: I choose not to answer this question Do you have trouble paying your heating and electricity bill?: I choose not to answer this question Do you have trouble taking care of your child, family member or friend?: I choose not to answer this question Do you have trouble with day-to-day activities such as bathing, preparing meals, shopping, managing finances, etc.?: Yes Are you currently unemployed and looking for a job?: I choose not to answer this question Are you interested in more education?: No Please select the resources that you would like help with: None Currently or been in a relationship where the following occur: No concerns reported THRIVE Score: 0 JANAY-7 AMB Questionnaire JANAY-7 Date JANAY - 7 assessed: 07/06/24 Source: Developed by Drs. Sal Porras, Alma Marks, Amado Kaur and colleagues, with an educational katya from [employer]. Review of Systems Const Denies headache(s) Eyes Denies loss of vision ENT Denies vertigo, Denies dizziness, Denies headache(s) and Denies sore throat Card Denies chest pain, Denies leg edema and Denies lightheadedness Resp Denies cough, Denies hemoptysis and Denies wheezing GI Denies abdominal pain, Denies melena, Denies constipation, Denies diarrhea and Denies vomiting Denies urinary frequency, Denies dysuria and Denies urinary urgency Musc Denies arthralgias, Denies joint swelling, Denies numbness and Denies tingling Neuro Denies Abnormal speech present, Denies behavioral changes, Denies vertigo, Denies dizziness, Denies headache(s), Denies loss of vision, Denies memory loss, Denies numbness and Denies tingling Psych Denies anxiety, Denies behavioral changes, Denies depression, Denies memory loss and Denies panic attacks Jefe/Lymph Denies easy bleeding and Denies easy bruising Aller/Immun Denies wheezing Physical exam (Primary Care) Vital Signs: Last Vital Signs Temp 97.1 F 03/15/25 08:51 Pulse 80 03/15/25 08:51 BP 150/90 H 03/15/25 09:31 Pulse Ox 93 03/15/25 08:51 Oxygen Delivery Method Room Air 03/15/25 08:51 BMI result Body Mass Index 16.9 Tobacco/Smoking Status: Tobacco use Status Tobacco use date assessed 03/15/25 03/15/25 08:57 Patient Tobacco Use Status Current everyday Tobacco 03/15/25 08:57 Tobacco use type Cigarette 03/15/25 08:57 e-Cigarette/Vaping Use Never Used 03/15/25 08:57 Are you ready to quit: No Tobacco cessation counseling provided: Yes Items discussed: Nicotine replacement Relapse Prevention: discussed the importance of a supportive environment, discussed negative mood or depression after quitting, weight gain after smoking is common and discussed dietary, exercise and/or lifestyle changes Number of minutes spent counselin CPT code: 30002 - 4-10 Minutes Thrive Assessment: Date of Thrive Assessment Date Thrive assessed 07/06/24 03/15/25 08:57 Currently or been in a relationship where the following occur: No concerns reported Const General: healthy appearing, no acute distress, alert and awake Nutritional Appearance: well nourished Orientation/consciousness: oriented to person, oriented to place and oriented to time HENMT Ears: TM's normal bilaterally General nose exam: Normal nasal mucous membranes and turbinates present Eyes Conjunctivae: conjunctivae normal Sclerae: sclerae normal Pupils: Equal, round and reactive pupils present Neck Neck: Yes no lymphadenopathy and Yes no JVD Thyroid: Thyroid normal Carotids: no bruits Resp Effort & Inspection: normal respiratory effort and not tachypneic Auscultation: no crackles, no rales, no rhonchi and no wheezes Cardio Rate: regular rate Rhythm: regular rhythm Heart sounds: no murmurs and normal S1 and S2 GI Palpation (GI): Soft to palpation, nontender, no hepatomegaly and no splenomegaly Auscultation: normal bowel sounds Back/Spine/Pelvis Other: LIMITED RANGE OF MOTION OF THE LUMBAR SPINE, PATIENT AMBULATING WITH A CANE ASSISTANCE Skin General skin exam: no rashes or lesions noted and dry skin Neuro General: oriented to person, oriented to place and oriented to time Cranial nerves: Yes Equal, round and reactive pupils present Speech: No Abnormal speech present Gait exam (Neuro): Normal gait present Motor exam (neuro): no tremor noted Extrem Right upper extremity: full ROM Left upper extremity: full ROM Right lower extremity: full ROM; no edema Left lower extremity: full ROM; no edema Psych Mental Status: mental status grossly normal Speech and movement: Normal speech and movement present Affect: normal affect Attitude: cooperative Thought process: Normal thought process present Coding Level of Care Code Est Pt Level 4 (75500) Diagnoses Lower extremity edema R60.0 Tobacco dependence F17.200 Spinal stenosis of lumbar region with neurogenic claudication M48.062 Centrilobular emphysema J43.2 COPD type: emphysema Emphysema type: centrilobular Irritable bowel syndrome, unspecified type K58.9 Irritable bowel syndrome type: unspecified Age-related osteoporosis with current pathological fracture with routine healing, subsequent encounter M80.00XD Encounter type: subsequent encounter Fracture healing: with routine healing Presence of current pathological fracture: with current pathological fracture Additional Codes Vital Signs *Quality* - CPT code: 96493 - 4-10 Minutes ([id number]) Assessment & Plan Assessment & Plan (1) Lower extremity edema: Code(s): R60.0 - Localized edema Category: Medical Plan: The plan includes managing the patient's essential hypertension by continuing current medications, including lisinopril and metoprolol, and introducing furosemide every other day to address fluid retention. An echocardiogram is ordered to reassess cardiac function given the peripheral edema and previous heart test results. (2) Tobacco dependence: Code(s): F17.200 - Nicotine dependence, unspecified, uncomplicated Category: Medical Plan: Patient does understand she needs to quit smoking though unfortunately has found it very difficult to do so. Have offered nicotine replacement though patient declines. She reports she has cut down to half a pack of cigarettes per day. Not interested in stopping smoking at this time (3) Spinal stenosis of lumbar region with neurogenic claudication: Code(s): M48.062 - Spinal stenosis, lumbar region with neurogenic claudication Category: Medical Plan: We considered a neurosurgeon to evaluate the potential for surgical intervention for the compression fracture at L1. A bone density scan is recommended to reassess osteoporosis status and consider resuming medication for bone health. (4) COPD (chronic obstructive pulmonary disease): Code(s): J44.9 - Chronic obstructive pulmonary disease, unspecified Category: Medical Qualifiers: COPD type: emphysema Emphysema type: centrilobular Qualified Code(s): J43.2 - Centrilobular emphysema Plan: Patient reports her pulmonary status has been fairly well stable. Unfortunately still smokes. She does have access to albuterol inhaler and albuterol solution to use as needed. (5) IBS (irritable bowel syndrome): Code(s): K58.9 - Irritable bowel syndrome, unspecified Category: Medical Qualifiers: Irritable bowel syndrome type: unspecified Qualified Code(s): K58.9 - Irritable bowel syndrome without diarrhea Plan: As above, GI workup including endoscopy and colonoscopy were benign. Continues to follow [facility] (6) Age related osteoporosis: Code(s): M81.0 - Age-related osteoporosis without current pathological fracture Category: Medical Qualifiers: Encounter type: subsequent encounter Fracture healing: with routine healing Presence of current pathological fracture: with current pathological fracture Qualified Code(s): M80.00XD - Age-related osteoporosis with current pa thological fracture, unspecified site, subsequent encounter for fracture with routine healing Plan: Will try for repeat bone density as she does have severe osteoporosis noted on DEXA screening in 2022. She was on Fosamax for short period of time though stopped using this medication for some unclear reason. Will restart Fosamax in hopes that will help increase bone density and help with her overall pain and fracture reduction risk Orders: Orders CA echo transthoracic complete Today R60.0 - Localized edema Ethanol Today R60.0 - Localized edema XR DEXA axial skeleton Today M80.00XD - Age-related osteoporosis with current pathological fracture, unspecified site, subsequent encounter for fracture with routine healing, Z78.0 - Asymptomatic menopausal state Medications: New alendronate (Fosamax) 70 mg PO QWEEK 12 tabs 1RF 12 weeks M80.00XD - Age- related osteoporosis with current pathological fracture, unspecified site, subsequent encounter for fracture with routine healing furosemide (Lasix) 20 mg PO Q OTHER DAY 15 tabs 0RF 30 days R60.0 - Localized edema
[2025-03-15 08:51] VITALS: BP 160/100; PULSE 80; TEMP 36.2; O2SAT 93; BMI 16.9
--- OUTSIDE RECORDS SUMMARY | 2025-03-15 09:20 | XMS_ITS | Clinical Summary ---
Author Organization [facility] Address [address] [place] [address] Care Team Providers Care Spout Positioner Name Role Phone Michel Dodd Primary Care Provider [phone] Social History Tobacco Use Types Packs/Day Years [...] patient's age to complete this topic Insurance [facility] Medicare [facility] Medicare Care Teams Spout Positioner Relationship Specialty Start Date End Date Michel Dodd PA [address] [facility], [address] [place] [address] PCP - General Physician [employer] 02/24/23
--- OUTSIDE RECORDS SUMMARY | 2025-03-15 09:20 | XMS_ITS | Clinical Summary ---
Author Organization [facility] Address [address] [place], [place] [id number] Phone Care Team Providers Care Stenotypist Name Role Phone Chula Patton MD Primary Care Provider [phone] Social History Tobacco Use Types Packs/Day Years [...] file Medical Devices Not on file Insurance [facility] MEDICARE REPLACEMENT MEDICARE REPLACEMENT MEDICARE [place] [address] [address] [place] [address] MEDICARE REPLACEMENT [facility] MEDICARE REPLACEMENT [facility] MEDICARE REPLACEMENT Care Teams Stenotypist Relationship Specialty Start Date End Date Chula Patton MD [address] [place] [phone] [email or web address] PCP - General Internal Medicine 10/25/22 Additional Source Comments The information contained in this document represents components of the legal health record. It is not the complete legal health record.[facility]
[2025-03-15 09:31] VITALS: BP 150/90
== END 2025-03-15 14:21 | disposition home or self-care (01) ==
LOC: HO.HMCH 08:48
PROVIDERS: PCP Physician Assistant; Visit Provider Physician Assistant
DX: R60.0 Localized edema (principal); F17.200 Nicotine dependence, unspecified, uncomplicated; M48.062 Spinal stenosis, lumbar region with neurogenic claudication; J43.2 Centrilobular emphysema; K58.9 Irritable bowel syndrome, unspecified; M80.00XD Age-related osteoporosis with current pathological fracture, unspecified site, subsequent encounter for fracture with routine healing

== ENCOUNTER → 2025-03-15 08:47 | Outpatient (BNVA) | payer MEDICARE, SELFPAY | PROVIDERS: PCP Physician Assistant; Visit Provider Physician Assistant | DX: I10 Essential (primary) hypertension (principal); E78.5 Hyperlipidemia, unspecified; R60.0 Localized edema; M48.062 Spinal stenosis, lumbar region with neurogenic claudication; J43.2 Centrilobular emphysema; K58.9 Irritable bowel syndrome, unspecified; F17.210 Nicotine dependence, cigarettes, uncomplicated; M80.00XD Age-related osteoporosis with current pathological fracture, unspecified site, subsequent encounter for fracture with routine healing; X58.XXXD Exposure to other specified factors, subsequent encounter; Z79.899 Other long term (current) drug therapy | CPT/HCPCS: 99212 ==

== ENCOUNTER 2025-05-02 13:55 | Outpatient (AMB) | payer MEDICARE, SELFPAY ==
--- NOTE | 2025-05-02 14:28 | A.OFFPC_ITS ---
Vital Signs 05/02/25 14:29 Height 5 ft 4 in Weight 94 lb BMI 16.1 BP 100/72 Blood Pressure Location Rt brachial Position Sitting Pulse 86 Pulse Source Pulse Oximeter Temp 97.3 F Temp Source Temporal Artery Scan Pulse Oximetry (%) 93 Oxygen Delivery Method Room Air Intake Visit Reasons: f/u HTN/ IBS/ Back issues Intake Note: Patient is here to follow up on HTN, IBS, Back issues. Supervisor Cutting And Boning Required: No Belt Measurer: Not Required per policy Accompanied by: Self / Same As Patient Allergies cat dander Allergy (Intermediate, Verified 05/02/25 15:03) Itchy Eyes/nasal congestion morphine Allergy (Intermediate, Verified 05/02/25 15:03) Flushing-facial Seasonal Allergies Allergy (Intermediate, Verified 05/02/25 15:03) Itchy Eyes Medication List - Last Reconciled 05/02/25 by Michel Dodd PA-C acetaminophen 650 mg (2 x 325 mg) PO Q6H PRN 30 days albuterol sulfate 90 mcg/actuation 1 puff inhalation QID PRN albuterol sulfate 2.5 mg (3 mL) inhalation Q6H PRN 30 days alendronate (Fosamax) 70 mg PO QWEEK 12 weeks aspirin 325 mg PO DAILY PRN atorvastatin 10 mg PO DAILY back brace As directed baclofen 10 mg PO BID PRN 30 days blood pressure test kit-small As directed cholecalciferol (vitamin D3) 50 mcg PO DAILY cyclobenzaprine 5 mg PO BID PRN 15 days Held on 05/31/24. Instructions: Doctor's Order furosemide (Lasix) 20 mg PO Q OTHER DAY 30 days ipratropium-albuterol 0.5 mg-3 mg(2.5 mg base)/3 mL 3 mL inhalation BID PRN lisinopril 10 mg PO DAILY lorazepam 0.5 mg PO DAILY PRN 4 days magnesium oxide 400 mg PO DAILY 90 days metoprolol succinate ER 25 mg (1/2 x 50 mg) PO DAILY mirtazapine 15 mg PO BEDTIME 90 days montelukast 10 mg PO DAILY multivitamin 1 tab PO DAILY omeprazole 40 mg PO DAILY ondansetron HCl 4 mg PO Q8H PRN 7 days oxybutynin chloride ER 10 mg PO DAILY 30 days Tobacco use date assessed: 05/02/25 Fall risk assessment: No Falls in past year Last assessed Fall Risk: 05/02/25 Dental Screening Dental Screen Date: 07/06/24 HPI f/u HTN/ IBS/ Back issues HPI Details Patient is a 70-year-old female here today for a follow-up visit. Patient has a past medical history significant for hyperlipidemia, carotid stenosis, COPD, tobacco dependency, hypertension. Hypertension: Blood pressure much improved lately. She is now taking 50 mg for metoprolol and continues on her current dose of lisinopril. Of note patient continues to have intermittent episodes of bilateral lower extremity edema to which we are concerned for cardiovascular issue. We have ordered cardiac echo though unfortunately has not been able to make it to an appointment. She is interested in repeat establishing an appointment for this cardiac ech. .. Tobacco dependency: Unfortunately patient continues to smoke cigarettes does understand she needs to quit though has found it very difficult to do so. She understands her cardiovascular risks with continued smoking. .. .. Lumbar spine disease: Patient is followed by [place] pain management and is considering lumbar vertebral surgery. A compression fracture at L1 was identified in an MRI conducted in January 2023, following a fall several years ago Surgery and procedures has been placed on hold due to other medical issues that have presented. She is return back to seeing pain management rooms considering a spinal stimulator though patient is not interested in this. She reports she would like to see spine surgeon to [facility] for surgery. Did explain to her she may not be a great candidate for surgery as she has multiple medical problems .. Severe osteoporosis: DEXA screening in 2022 showing severe osteoporosis. She was on Fosamax for short period of time though has stopped using this medication. She is willing to restart Fosamax once weekly. Will get a repeat bone density evaluate for any evolution of her osteoporosis [facility] Medical History IBS (irritable bowel syndrome) Cachexia Nasal sinus congestion Cricopharyngeal achalasia Spinal stenosis COPD (chronic obstructive pulmonary disease) Acute respiratory failure with hypoxia Femoral neck fracture GERD (gastroesophageal reflux disease) JANAY (generalized anxiety disorder) MDD (major depressive disorder) Pulmonary nodule Current smoker HTN (hypertension) Surgical History History of carotid endarterectomy History of third molar tooth extraction, class I edentulism Hx of bilateral cataract extraction History of total left hip arthroplasty Hx of colonoscopy History of esophagogastroduodenoscopy (EGD) History of cervical discectomy Family History Father Lung cancer Brain cancer Mother CVD (cardiovascular disease) Breast cancer Son In good health Brother In good health Social History Household Members: None Household Members Other:: brother lives downstairs Housing: House Housing Other:: upper level of 2 family home-brother lives on lower level Are you a primary home health aide caregiver to a significant other at home: No Do you presently have visiting nurse or other home services: No Alcohol intake: current Alcohol intake frequency: a few times a month Patient Tobacco Use Status: Current everyday Tobacco user Tobacco use type: Cigarette Cigarette Packs Per Day: 1 Cigarettes Per Day: 20 Years Smoked: 38 Packs Per Year: 38 Packs per year/per ci.00 e-Cigarette/Vaping Use: Never Used Second Hand Smoke Exposure: Yes Advance Directives Date on File: 10/21/22 service: No Current occupational status: retired Cognitive needs: No Hearing needs: No Vision needs: No Questionnaire Thrive Questionnaire Date Thrive assessed: 07/06/24 I am a: Parent/Caregiver What is your living situation today?: I choose not to answer this question Within the past 12 months, did the food you bought not last and you didn't have the money to get more?: I choose not to answer this question Within the past 12 months, did you worry whether your food would run out before you got money to buy more?: I choose not to answer this question Do you have trouble paying for medicines?: Yes Do you have trouble getting transportation to medical appointments?: I choose not to answer this question Do you have trouble paying your heating and electricity bill?: I choose not to answer this question Do you have trouble taking care of your child, family member or friend?: I choose not to answer this question Do you have trouble with day-to-day activities such as bathing, preparing meals, shopping, managing finances, etc.?: Yes Are you currently unemployed and looking for a job?: I choose not to answer this question Are you interested in more education?: No Please select the resources that you would like help with: None Currently or been in a relationship where the following occur: No concerns reported THRIVE Score: 0 JANAY-7 AMB Questionnaire JANAY-7 Date JANAY - 7 assessed: 07/06/24 Source: Developed by Drs. Sal Porras, Alma Marks, Amado Kaur and colleagues, with an educational katya from [employer]. Review of Systems Const Denies headache(s) Eyes Denies loss of vision ENT Denies vertigo, Denies dizziness, Denies headache(s) and Denies sore throat Card Denies chest pain, Denies leg edema and Denies lightheadedness Resp Denies cough, Denies hemoptysis and Denies wheezing GI Denies abdominal pain, Denies melena, Denies constipation, Denies diarrhea and Denies vomiting Denies urinary frequency, Denies dysuria and Denies urinary urgency Musc Denies arthralgias, Denies joint swelling, Denies numbness and Denies tingling Neuro Denies Abnormal speech present, Denies behavioral changes, Denies vertigo, Denies dizziness, Denies headache(s), Denies loss of vision, Denies memory loss, Denies numbness and Denies tingling Psych Denies anxiety, Denies behavioral changes, Denies depression, Denies memory loss and Denies panic attacks Jefe/Lymph Denies easy bleeding and Denies easy bruising Aller/Immun Denies wheezing Physical exam (Primary Care) Vital Signs: Last Vital Signs Temp 97.3 F 05/02/25 14:29 Pulse 86 05/02/25 14:29 BP 100/72 05/02/25 14:29 Pulse Ox 93 05/02/25 14:29 Oxygen Delivery Method Room Air 05/02/25 14:29 BMI result Body Mass Index 16.1 BMI Assessment/Plan discussion: Low BMI Low, Plan discussed: lifestyle and increase calorie intake Tobacco/Smoking Status: Tobacco use Status Tobacco use date assessed 05/02/25 05/02/25 15:00 Patient Tobacco Use Status Current everyday Tobacco 05/02/25 15:00 Tobacco use type Cigarette 05/02/25 15:00 e-Cigarette/Vaping Use Never Used 05/02/25 15:00 Are you ready to quit: No Tobacco cessation counseling provided: Yes Items discussed: Nicotine replacement Relapse Prevention: discussed the importance of a supportive environment, discussed negative mood or depression after quitting, weight gain after smoking is common and discussed dietary, exercise and/or lifestyle changes Number of minutes spent counselin CPT code: 33446 - 4-10 Minutes Thrive Assessment: Date of Thrive Assessment Date Thrive assessed 07/06/24 05/02/25 15:00 Currently or been in a relationship where the following occur: No concerns reported Const General: healthy appearing, no acute distress, alert and awake Nutritional Appearance: well nourished Orientation/consciousness: oriented to person, oriented to place and oriented to time HENMT Ears: TM's normal bilaterally General nose exam: Normal nasal mucous membranes and turbinates present Eyes Conjunctivae: conjunctivae normal Sclerae: sclerae normal Pupils: Equal, round and reactive pupils present Neck Neck: Yes no lymphadenopathy and Yes no JVD Thyroid: Thyroid normal Carotids: no bruits Resp Effort & Inspection: normal respiratory effort and not tachypneic Auscultation: no crackles, no rales, no rhonchi and no wheezes Cardio Rate: regular rate Rhythm: regular rhythm Heart sounds: no murmurs and normal S1 and S2 GI Palpation (GI): Soft to palpation, nontender, no hepatomegaly and no splenomegaly Auscultation: normal bowel sounds Skin General skin exam: no rashes or lesions noted and dry skin Neuro General: oriented to person, oriented to place and oriented to time Cranial nerves: Yes Equal, round and reactive pupils present Speech: No Abnormal speech present Gait exam (Neuro): Normal gait present Motor exam (neuro): no tremor noted Extrem Right upper extremity: full ROM Left upper extremity: full ROM Right lower extremity: full ROM; no edema Left lower extremity: full ROM; no edema Psych Mental Status: mental status grossly normal Speech and movement: Normal speech and movement present Affect: normal affect Attitude: cooperative Thought process: Normal thought process present Office Procedures Flu Questionnaire Does the patient have a severe egg allergy?: No Does the patient have severe life threatening allergies?: No Does the patient have a fever or illness today?: No Has the patient ever had Guillain-T[place] Syndrome?: No Has the patient ever had any past reaction to a flu shot?: No Immunizations Fluarix [id number] (PF) 45 mcg (15 mcg x 3)/0.5 mL IM syringe Performing Provider: Michel Dodd PA-C [facility] Administered by: Belinda Soto LPN on 05/02/25 15:32 Dose Route Admin Location Dispensed Lot Number Expiration Date NDC Mens Locker Room Attendant 0.5 mL IM Right Deltoid 0.5 mL [id number] 12/13/25 02915-309-00 [employer] VIS Given Date VIS Provided VIS Publication Date 05/02/25 Single Vaccine 24 Eligibility Eligibility Date Funding Source Not [facility] Eligible 05/02/25 Private Coding Level of Care Code Est Pt Level 4 (44580) Diagnoses Compression fracture of L1 vertebra, sequela S32.010S Encounter type: sequela Lower extremity edema R60.0 Tobacco dependence F17.200 Spinal stenosis of lumbar region with neurogenic claudication M48.062 Essential hypertension I10 Hypertension type: essential hypertension Additional Codes Vital Signs *Quality* - CPT code: 43624 - 4-10 Minutes ([id number]) Assessment & Plan Assessment & Plan (1) Compression fracture of L1 lumbar vertebra: Code(s): S32.010A - Wedge compression fracture of first lumbar vertebra, initial encounter for closed fracture Category: Medical Qualifiers: Encounter type: sequela Qualified Code(s): S32.010S - Wedge compression fracture of first lumbar vertebra, sequela Plan: For the patient's worsening low back pain and new radicular symptoms, a lumbar spine X-ray will be ordered, which she can have done on a walk-in basis with her lab work. An attempt will also be made to get a lumbar spine MRI authorized to evaluate for a worsening compression fracture or disc herniation. (2) Lower extremity edema: Code(s): R60.0 - Localized edema Category: Medical Plan: The plan includes managing the patient's essential hypertension by continuing current medications, including lisinopril and metoprolol, and introducing furosemide every other day to address fluid retention. An echocardiogram is ordered to reassess cardiac function given the peripheral edema and previous heart test results. (3) Tobacco dependence: Code(s): F17.200 - Nicotine dependence, unspecified, uncomplicated Category: Medical Plan: Patient does understand she needs to quit smoking though unfortunately has found it very difficult to do so. Have offered nicotine replacement though patient declines. She reports she has cut down to half a pack of cigarettes per day. Not interested in stopping smoking at this time (4) Spinal stenosis of lumbar region with neurogenic claudication: Code(s): M48.062 - Spinal stenosis, lumbar region with neurogenic claudication Category: Medical Plan: We considered a neurosurgeon to evaluate the potential for surgical intervention for the compression fracture at L1. A bone density scan is recommended to reassess osteoporosis status and consider resuming medication for bone health. (5) HTN (hypertension): Code(s): I10 - Essential (primary) hypertension Category: Medical Qualifiers: Hypertension type: essential hypertension Qualified Code(s): I10 - Essential (primary) hypertension Plan: Patient's blood pressure acceptable today in office. She continues now on m etoprolol 50 mg daily along with her 10 mg of lisinopril. Will continue on this regime with goal blood pressure to remain below 140/90 Orders: Orders XR lumbar spine 2-3V 05/02/25 S32.019A - Unspecified fracture of first lumbar vertebra, initial encounter for closed fracture CA echo transthoracic complete 05/02/25 R60.0 - Localized edema MR lumbar spine wo con 05/02/25 S32.019A - Unspecified fracture of first lumbar vertebra, initial encounter for closed fracture Influenza [id number] Immunization 05/02/25 Z23 - Encounter for immunization Medications: Changed From metoprolol succinate ER 25 mg (1/2 x 50 mg) PO DAILY 45 tabs 1RF I10 - Essential (primary) hypertension To metoprolol succinate ER 50 mg PO DAILY 90 tabs 1RF 90 days I10 - Essential (primary) hypertension Refilled baclofen 10 mg PO BID PRN 60 tabs 3RF muscle spasm 30 days M54.51 - Vertebrogenic low back pain oxybutynin chloride ER 10 mg PO DAILY 30 tabs 3RF 30 days N32.89 - Other specified disorders of bladder montelukast 10 mg PO DAILY 90 tabs 3RF I10 - Essential (primary) hypertension
[2025-05-02 14:29] VITALS: BP 100/72; PULSE 86; TEMP 36.3; O2SAT 93; BMI 16.1
== END 2025-05-02 15:39 | disposition home or self-care (01) ==
LOC: HO.HMCH 13:56
PROVIDERS: PCP Physician Assistant; Visit Provider Physician Assistant
DX: S32.010S Wedge compression fracture of first lumbar vertebra, sequela (principal); R60.0 Localized edema; F17.200 Nicotine dependence, unspecified, uncomplicated; M48.062 Spinal stenosis, lumbar region with neurogenic claudication; I10 Essential (primary) hypertension

== ENCOUNTER → 2025-05-02 13:55 | Outpatient (BNVA) | payer MEDICARE, SELFPAY | PROVIDERS: PCP Physician Assistant; Visit Provider Physician Assistant | DX: I10 Essential (primary) hypertension (principal); E78.5 Hyperlipidemia, unspecified; J44.9 Chronic obstructive pulmonary disease, unspecified; M81.0 Age-related osteoporosis without current pathological fracture; M48.062 Spinal stenosis, lumbar region with neurogenic claudication; R60.0 Localized edema; F17.210 Nicotine dependence, cigarettes, uncomplicated; S32.010S Wedge compression fracture of first lumbar vertebra, sequela; X58.XXXS Exposure to other specified factors, sequela; Z23 Encounter for immunization | CPT/HCPCS: 90471; 90656; 99212 ==

== ENCOUNTER 2025-05-14 09:54 | Outpatient (REF) | payer MEDICARE, SELFPAY ==
--- NOTE | ~2025-05-14 | CT_ITS ---
CLINICAL HISTORY: R91.8 - Other nonspecific abnormal finding of lung field CT chest without contrast Comparison: None provided Findings: NECK BASE: Limited views of the thyroid are unremarkable. LUNGS/PLEURA: No focal consolidation. Mild emphysematous changes bilaterally. Scattered pulmonary nodules, for example measuring 5 mm in the right upper lobe and 4 mm in the left upper lobe. PULM VASCULAR: Poorly evaluated without IV contrast. MEDIASTINUM: No masses or lymphadenopathy. CARDIAC: No pericardial effusion. No cardiomegaly. AORTA: No aneurysm. CHEST WALL: No masses or axillary lymphadenopathy. LIMITED ABDOMEN: Limited views are unremarkable. BONES: No acute fracture. Chronic appearing L1 vertebral body compression deformity. IMPRESSION: 1. No acute abnormality. Scattered subcentimeter pulmonary nodules as above. Follow-up per Fleischner criteria. This document has been electronically signed by: Angela Waller MD on 05/16/2025 19:04:13
--- NOTE | ~2025-05-14 | XR_ITS ---
EXAMINATION: XR LUMBOSACRAL SPINE CLINICAL INFORMATION: S32.019A - Unspecified fracture of first lumbar vertebra, initial encoun... COMPARISON: December 20, 2022 TECHNIQUE: AP and lateral views FINDINGS: S-shaped curvature of the thoracolumbar spine with a dextro convex morphology at the thoracolumbar junction and levoconvex morphology apex at L3-4. Multilevel marginal osteophyte formation and endplate sclerosis, subchondral cyst formation decreased intervertebral disc height at L3-4, L4-5 levels. Grade 1 anterolisthesis at L3-4. 30% volume loss deformity at L1 vertebra. No acute cortical disruption. No lytic or blastic lesions. Degenerative changes in the right coxofemoral joint. Metallic prosthesis not fully included in the [id number], left hip. Vascular calcifications, aorta. XR/XR lumbar spine 2-3V IMPRESSION: Thoracolumbar scoliosis and multilevel spondylosis pronounced at L3-4 resulting in grade 1 anterolisthesis and to a lesser extent at L4-5. Old compression deformity, L1. Atherosclerosis disease, aorta. Electronically signed by: Rajinder Olsen MD 05/16/2025 08:29 AM EST
--- OUTSIDE RECORDS SUMMARY | 2025-05-14 09:58 | XMS_ITS | Clinical Summary ---
Author Organization [facility] Facility Address [address] [place] [address] Care Team Providers Care Funeral Service Apprentice Name Role Phone Michel Dodd Primary Care Provider [phone] Social History Tobacco Use Types Packs/Day Years [...] patient's age to complete this topic Insurance [facility] Medicare [facility] Medicare Care Teams Funeral Service Apprentice Relationship Specialty Start Date End Date Michel Dodd PA [address] [facility], [address] [place] [address] PCP - General Physician Microbiology Supervisor 02/24/23
--- OUTSIDE RECORDS SUMMARY | 2025-05-14 09:58 | XMS_ITS | Clinical Summary ---
Author Organization [facility] Address [address] [place], [place] [address] Phone Care Team Providers Care Fire Protection Fabricator Name Role Phone Chula Patton MD Primary Care Provider [phone] Social History Tobacco Use Types Packs/Day Years [...] file Medical Devices Not on file Insurance [facility] MEDICARE REPLACEMENT MEDICARE REPLACEMENT MEDICARE REPLACEMENT [address] [address] [place] [address] MEDICARE REPLACEMENT [facility] MEDICARE REPLACEMENT [facility] MEDICARE REPLACEMENT Care Teams Fire Protection Fabricator Relationship Specialty Start Date End Date Chula Patton MD [address] [place] [id number] [email or web address] PCP - General Internal Medicine 10/25/22 Additional Source Comments The information contained in this document represents components of the legal health record. It is not the complete legal health record.[facility]
[2025-05-14 10:32] LABS: Hematocrit 40.6 % (37.0-47.0); Hemoglobin 13.9 g/dl (12.0-16.0); Mean Corpuscular HGB Conc 34.2 g/dl (31.0-35.0); Mean Corpuscular Hemoglobin 36.8 pg (27.0-33.0); Mean Corpuscular Volume 107.4 fL (80.0-98.0); NRBC Abs Auto 0.000 X10*3/uL (0.0-0.012); NRBC Pct Auto 0.0 /100WBC (0.0-0.2); Platelet Count 221 X10*3/uL (160-400); Red Blood Count 3.78 X10*6/uL (4.20-5.50); White Blood Count 5.7 X10*3/uL (4.8-10.8)
[2025-05-14 11:12] LABS: Alanine Aminotransferase < 6 U/L (0-31); Albumin Level 3.2 g/dL (3.5-5.0); Alkaline Phosphatase 106 U/L (39-117); Anion Gap 16 (12-20); Aspartate Amino Transferase 24 U/L (5-31); Blood Urea Nitrogen 21 mg/dL (9-16); Calcium 8.5 mg/dL (8.4-10.2); Carbon Dioxide 27 mmol/L (22-29); Chloride 96 mmol/L (96-108); Cholesterol 166 mg/dL (<200); Estimated Glomerular Filt Rate > 60; HDL Cholesterol 84 mg/dL (>40); Lipase 18 U/L (8-78); Magnesium 1.6 mg/dL (1.6-2.6); Potassium 5.0 mmol/L (3.3-5.1); Sodium 134 mmol/L (135-145); Total Protein 6.1 g/dL (6.5-8.0); Triglycerides 98 mg/dL (<150)
[2025-05-14 12:38] LABS: Free T4 (Free Thyroxine) 0.95 ng/dL (0.71-1.85)
== END 2025-05-14 09:55 | disposition home or self-care (01) ==
LOC: HO.CT 09:54
PROVIDERS: Absent Provider Physician Assistant; PCP Physician Assistant; Visit Provider Nurse Practitioner Family
DX: Z51.81 Encounter for therapeutic drug level monitoring (principal); S32.019A Unspecified fracture of first lumbar vertebra, initial encounter for closed fracture; K52.9 Noninfective gastroenteritis and colitis, unspecified; E78.5 Hyperlipidemia, unspecified; J43.2 Centrilobular emphysema; I10 Essential (primary) hypertension; R10.9 Unspecified abdominal pain; R91.8 Other nonspecific abnormal finding of lung field; R14.0 Abdominal distension (gaseous); R60.0 Localized edema; R79.89 Other specified abnormal findings of blood chemistry
CPT/HCPCS: 36415; 71250; 72100; 80048; 80053; 80061; 80307; 83690; 83735; 84439; 84443; 85027

== ENCOUNTER → 2025-05-14 10:12 | Outpatient (BNV) | payer MEDICARE, SELFPAY | PROVIDERS: Absent Provider Physician Assistant; PCP Physician Assistant; Visit Provider Radiology Diagnostic Radiology | DX: R91.8 Other nonspecific abnormal finding of lung field (principal); S32.010A Wedge compression fracture of first lumbar vertebra, initial encounter for closed fracture; M41.35 Thoracogenic scoliosis, thoracolumbar region; M47.816 Spondylosis without myelopathy or radiculopathy, lumbar region; I70.0 Atherosclerosis of aorta | CPT/HCPCS: 71250; 72100 ==

== ENCOUNTER 2025-06-13 14:46 | Outpatient (REF) | payer MEDICARE, SELFPAY ==
[2025-06-13 16:13] LABS: Magnesium 1.8 mg/dL (1.6-2.6)
--- OUTSIDE RECORDS SUMMARY | 2025-06-13 17:07 | XMS_ITS | Clinical Summary ---
Author Organization [facility] Address [address] [place], [place] [id number] Phone Care Team Providers Care Physician General Practice Name Role Phone Chula Patton MD Primary Care Provider [phone] Social History Tobacco Use Types Packs/Day Years [...] Medical Devices Not on file Insurance [facility] MEDICARE REPLACEMENT MEDICARE REPLACEMENT MEDICARE [place] [address] [place] [address] [facility] MEDICARE [facility] MEDICARE REPLACEMENT Care Teams Physician General Practice Relationship Specialty Start Date End Date Chula Patton MD [address] [place] [phone] [email or web address] PCP - General Internal Medicine 10/25/22 Additional Source Comments The information contained in this document represents components of the legal health record. It is not the complete legal health record.[facility]
--- OUTSIDE RECORDS SUMMARY | 2025-06-13 17:07 | XMS_ITS | Clinical Summary ---
Author Organization [facility] Facility Address [address] [place] [address] Care Team Providers Care Med Surg Rn Name Role Phone Michel Dodd Primary Care Provider [phone] Social History Tobacco Use Types Packs/Day Years [...] age to complete this topic Insurance [facility] Medicare [facility] Medicare Care Teams Med Surg Rn Relationship Specialty Start Date End Date Michel Dodd PA [address] [facility], [address] [place] [address] PCP - General Physician Glass Checker 02/24/23
== END 2025-06-13 14:47 ==
LOC: HO.LAB 14:46
PROVIDERS: PCP Physician Assistant; Visit Provider Physician Assistant
DX: R73.01 Impaired fasting glucose (principal); E83.42 Hypomagnesemia
CPT/HCPCS: 36415; 83036; 83735